=== PATIENT | male | born 1955 | race Caucasian/White ===

== ENCOUNTER 2023-01-07 09:55 | Outpatient (RCR) | payer OTHER, SELFPAY | END 2023-04-01 10:19 | disposition home or self-care (01) | LOC: PT 09:55 | PROVIDERS: PCP Family Medicine; Visit Provider Family Medicine | DX: Z98.890 Other specified postprocedural states (principal) | CPT/HCPCS: 97010; 97014; 97110; 97124; 97140; 97162; 97530; G0283 ==

== ENCOUNTER 2023-07-05 12:56 | Outpatient (OUT) | payer OTHER, SELFPAY ==
--- NOTE | 2023-07-05 13:16 | CT_ITS ---
[address] [address] Patient Name: JACKELYN BUSTILLO MRN: [id number] date: 1955 Sex: M Assigned Patient Location: CT Current Patient Location: CT Accession/Order Number: [id number] Exam Date: 07/05/2023 13:08 Report Date: 07/05/2023 15:21 At the request of: NICKO ORTEGA Procedure: CT chest wo con EXAM TYPE: CT chest wo con INDICATION: Pulmonary nodules. COMPARISON: Noncontrast CT of the chest 06/16/2022, 12/14/2021 TECHNIQUE: Noncontrast, Low dose, helical axial images of the chest were obtained, and thin section, axial MIP, and coronal and sagittal reformats were also submitted from the acquisition scanner under radiologist supervision. Each series was submitted in a lung algorithm. Dose reduction techniques were achieved by using automated exposure control and/or adjustment of mA and/or kV according to patient size and/or use of iterative reconstruction technique. FINDINGS: Please note that this examination was tailored for evaluation of pulmonary nodules, and therefore soft tissue detail is suboptimal. Heart size within normal limits. No pericardial effusion. Coronary artery calcification and calcified atherosclerotic change within the aorta. No aortic aneurysm. No mediastinal, hilar or axillary lymphadenopathy. No central endobronchial nodule. Extensive emphysematous change throughout the lung parenchyma. Subsegmental atelectasis within the right middle lobe lingula and lower lobes bilaterally. No lobar consolidation or pleural effusion. No pneumothorax. New 1.1 x 0.9 cm slightly spiculated nodule left upper lobe (3, 31) Stable 7 mm left lower lobe nodule (3, 40) New 4 mm right middle lobe nodule (3, 74) Nonobstructing right renal calculus. Small sliding hiatal hernia. Calcified hepatic granuloma. No acute fracture or dislocation. Stable mild compression deformity T7 vertebral body. IMPRESSION : 1. New pulmonary nodules within the left upper lobe and right middle lobe. Left lower lobe nodule is stable. Lung RADS category 4A suspicious: LD CT scan of the chest in 3 months recommended. 2. Nonobstructing right nephrolithiasis. Electronically authenticated by: RANDALL WATSON Date: 07/05/2023 15:21
== END 2023-07-05 12:57 | disposition home or self-care (01) ==
LOC: CT 12:56
PROVIDERS: PCP Family Medicine; Visit Provider Internal Medicine
DX: R91.8 Other nonspecific abnormal finding of lung field (principal)
CPT/HCPCS: 71250

== ENCOUNTER 2023-07-19 13:00 | Outpatient (OUT) | payer OTHER, SELFPAY ==
--- NOTE | 2023-07-20 07:59 | W.PM.PROCNOT ---
Date of procedure: 07/19/23 Procedure: 6-Minute Walk Test Indication: Centrilobular emphysema, dyspnea Baseline data: Initial blood pressure: 150/84 Initial heart rate: 78 Initial oxygenation: SpO2 96% on room air. Initial Андрей score: 0 MMRC: 1 Procedure: A 6-Minute Walk Test was initiated according to standard protocol. The patient ambulated for a total of 6 minutes with the lowest documented SpO2 measured at 89% on room air with a maximum heart rate of 111. The maximum Андрей score was 4. Symptoms reported: None. During recovery, blood pressure was 150/84 with a heart rate of 78. SpO2 was 96% on room air, with Андрей score 0. Total number of stops: 0. Total distance walked was 370m, which was 85% of predicted walk distance. Impressions: Borderline desaturations with ambulation on room air, but did not reach the 88% threshold required to qualify for supplemental O2. Minimally decreased walk distance. Recommendations: No supplemental O2 required based on the test results. Clinical correlation required. Surgeon: Fareed Cruz
== END 2023-07-19 13:01 | disposition home or self-care (01) ==
LOC: CARD 07-26 10:42
PROVIDERS: PCP Family Medicine; Visit Provider Internal Medicine
DX: R06.02 Shortness of breath (principal); J43.2 Centrilobular emphysema
CPT/HCPCS: 94618; 99406

== ENCOUNTER 2023-07-19 13:22 | Outpatient (OUT) | payer OTHER, SELFPAY ==
[2023-07-19 14:43] LABS: Chol HDL Ratio 2.4; Cholesterol 103 mg/dL (<=200); HDL Cholesterol 43 mg/dL (40-60); Triglycerides 50 mg/dL (<=150)
== END 2023-07-19 13:23 | disposition home or self-care (01) ==
LOC: LAB 13:24
PROVIDERS: PCP Family Medicine; Visit Provider Nurse Practitioner Acute Care
DX: E78.2 Mixed hyperlipidemia (principal); I25.10 Atherosclerotic heart disease of native coronary artery without angina pectoris; R06.02 Shortness of breath; J43.2 Centrilobular emphysema
CPT/HCPCS: 36415; 80061; 83880; 94618; 99406

== ENCOUNTER 2024-05-09 11:41 | Outpatient (OUT) | payer OTHER, SELFPAY ==
--- OUTSIDE RECORDS SUMMARY | 2024-05-09 11:50 | XMS_ITS | CCD ---
Author Organization [facility] Care Team Providers Care Library Associate Name Role Phone ELTAHAWY, EHAB A Admitting Unavailable ELTAHAWY, EHAB A Attending Unavailable KEATON RICO Referring Unavailable KEATON RICO Primary Care Unavailable KEATON RICO Primary Care Physician Tom Schroeder Unavailable Maritza SCOTT Attending Unavailable Maritza SCOTT Attending Unavailable Maritza SCOTT Admitting Unavailable Maritza SCOTT Referring Unavailable Maritza SCOTT Attending Unavailable Maritza SCOTT Attending Unavailable Keaton Rico Unavailable DR KEATON RICO Primary Care Unavailable SAMSA ., NICKO Attending Unavailable JOSE, DR MUNIR Balderas Consulting Unavailable SAMSA ., NICKO Admitting Unavailable SAMSA ., NICKO Consulting Unavailable JACKY, DR KEATON Hernandes Primary Care Unavailable ALGHOTHANI, MOHAMAD Admitting Unavailable ALGHOTHANI, MOHAMAD Attending Unavailable ALGHOTHANI, MOHAMAD Consulting Unavailable MISC, DR BRICEÑO Consulting Unavailable DR KEATON RICO Primary Care Unavailable MISC, DR BRICEÑO Admitting Unavailable MISC, DR BRICEÑO Attending Unavailable JACKY, DR KEATON Hernandes Primary Care Unavailable MARITZA SCOTT Admitting Unavailable MARITZA SCOTT Attending Unavailable MARITZA SCOTT Consulting Unavailable JOSE, DR MUNIR Balderas Consulting Unavailable DR KEATON RICO Primary Care Unavailable SAMSA ., NICKO Admitting Unavailable SAMSA ., NICKO Attending Unavailable SAMSA ., NICKO Consulting Unavailable Madie Honeycutt Unavailable MD Keaton Rico Primary Care Provider [phone] LANDEN Honeycutt Attending Provider MD Tom Schroeder Attending Provider MD Keaton Rico Primary Care Provider MD Tom Schroeder Attending Provider [phone] MD Tom Schroeder Admit Provider MD Juventino Kruse Other Provider MD Keaton Rico Primary Care Provider MD Tom Schroeder Attending Provider [phone] Madie Honeycutt Admitting Unavailable Madie Honeycutt Attending Unavailable Keaton Rico Primary Care Unavailable Tom Schroeder Admitting Unavailable Tom Schroeder Attending Unavailable Keaton Rico Primary Care Unavailable Elda, Tom Admitting Unavailable Tom Schroeder Attending Unavailable Keaton Rico Primary Care Unavailable Juventino Kruse Consulting Unavailable Tom Schroeder Admitting Unavailable Tom Schroeder Attending Unavailable Keaton Rico Primary Care Unavailable Tom Schroeder Attending Unavailable Tom Schroeder Admitting Unavailable Keaton Rico Primary Care Unavailable ARAVIND JOSÉ Attending Unavailable ARAVIND JOSÉ Attending Unavailable Allergies Allergy Classification Reported Allergen(s) Allergy Type Date of Onset Reaction(s) Facility (1 source) No Known Medication Allergies; Translations: [No Known Medication Allergies] Propensity to adverse reactions (disorder) [facility] Repository Medications Current Medications Medication Drug Class(es) Dates Sig (Normalized) Sig (Original) acyclovir 400 mg oral tablet (3 sources) Herpesvirus Nucleoside Analog DNA Polymerase Inhibitor, Herpes Simplex Virus Nucleoside Analog DNA Polymerase Inhibitor, Herpes Zoster Virus Nucleoside Analog DNA Polymerase Inhibitor Start: 06-22-2021 take 1 mg by mouth twice daily acyclovir 400 mg Tab mg tab(s), Oral, BID, Refills(s) 0 Start Date: 06/22/21 Status: Ordered [id number] 200 actuat albuterol 0.09 mg/actuat metered dose inhaler (15 sources) beta2-Adrenergic Agonist Start: 05-13-2021 take 1 puff(s) by inhalation four times daily Albuterol Sulfate (Ventolin Hfa) 90 mcg/actuation Hfa Aerosol Inhaler Active 2 PUFF INHALATION Four times daily May 13, 2021 12:00am take 1 puff(s) by in halation every four hours as needed Ventolin HFA 108 (90 Base) MCG/ACT 1 puf f as needed Inhalation every 4 hrs Active azithromycin 250 mg oral tablet (8 sources) Macrolide Antimicrobial Start: 10-20-2023 Azithromycin Active 250 MG PO daily 6 October 20, 2023 12:00am Take 2 today and then 1 for the next four days Start: 11-09-2022 Azithromycin 2 50 MG as directed Orally 2 tabs po today, then 1 tab daily x 4 more days for 5 Oct, Not-Taking clopidogrel 75 mg oral tablet (2 sources) P2Y12 Platelet Inhibitor Start: 09-16-2023 take 1 tablet by mouth once daily Clopidogrel (Plavix) 75 mg tablet Active 75 MG PO Daily September 16, 2023 1:00am doxycycline hyclate 100 mg oral capsule (1 source) Tetracycline-class Drug Start: 01-19-2022 End: 02-09-2022 take 1 capsule by mouth every twelve hours doxycycline hyclate 100 mg Cap 100 mg = 1 cap(s), Oral, q12hr, X 21 day(s), # 42 cap(s), Refills(s) 0, Pharmacy: [facility]/pharmacy #[id number], 180, cm, 01/15/22 10:43:00 EDT, Height/Length Dosing, 85, kg, 12/21/21 11:01:00 EDT, Weight Dosing Start Date: 01/19/22 Stop Date: 02/09/22 Status: Ordered Erythromycin (7 sources) Macrolide, Macrolide Antimicrobial Start: 06-22-2021 erythromycin ophthalmic 0.5% ointment 0.5 in, Eye-Both, QID, 3.5 gram, Refill(s) 0 Start Date: 06/22/21 Status: Ordered Start: 06-22-2021 erythromycin o phthalmic 0.5% ointment 0.5 in, Eye-Both, QID, 3.5 gram, Refill(s) 0 Start Date: 06/22/21 Status: Ordered Erythromycin 5 M G/GM 1 application into the lower eyelid of affected eye Ophthalmic Four times a day Active ezetimibe 10 mg oral tablet (10 sources) Dietary Cholesterol Absorption Inhibitor Start: 05-18-2023 take 10 mg by mouth once daily Ezetimibe Active 10 MG PO Daily May 18, 2023 12:00am Fluticasone-Umecl idin-Vilanter (4 sources) Anticholinergic, Corticosteroid, beta2-Adrenergic Agonist Start: 05-13-2021 Fluticasone-Umecli din-Vilanter (Trelegy Ellipta) 100-62.5-25 mcg blister with device Active 1 INH INHALATION Daily May 12, 2021 11:00pm Start: 05-13-2021 Fluticasone-Um eclidin-Vilanter (Trelegy Ellipta) 100-62.5-25 mcg blister with device Active 1 INH INHALATION Daily May 13, 2021 12:00am gatifloxacin 5 mg/ml ophthalmic solution (3 sources) Quinolone Antimicrobial Start: 06-22-2021 take 1 drop(s) into the eye(s) twice daily gatifloxacin 0.5% ophthalmic solution drop(s), BID, Refill(s) 0 Start Date: 06/22/21 Status: Ordered lisinopril 10 mg oral tablet (20 sources) Angiotensin Converting Enzyme Inhibitor Start: 01-11-2024 Lisinopril Active 0 .ROUTE .COMPLEX 90 January 11, 2024 1:03pm TAKE 1 TABLET DAILY Start: 11-04-2023 End: 01-11-2024 Lisinopril Discontinued 0 .R OUTE .COMPLEX 90 November 04, 2023 11:00am January 11, 2024 1:03pm TAKE 1 TABLET DAILY Start: 04-20-2021 End: 11-04-2023 take 10 mg by mouth once daily Lisinopril Discontinued 10 MG PO Daily May 13, 2021 12:00am November 04, 2023 11:00am methylPREDNISolone 4 mg oral tablet (1 source) Corticosteroid Start: 10-20-2023 take 1 tablet by mouth once Methylprednisolone (Medrol (Jhonatan)) 4 mg tablets,dose pack Active 0 PO per package directions 19 01October 20, 2023 12:00am PO PER PKG DIR 24 hr metoprolol succinate 25 mg extended release oral tablet (5 sources) beta-Adrenergic Angelica Start: 05-18-2023 take 25 mg by mouth once daily Metoprolol Succinate Active 25 MG PO Daily May 18, 2023 12:00am Start: 05-18-2023 take 10 mg by mouth once daily Metoprolol Succinate Active 10 MG PO Daily May 17, 2023 11:00pm Metoprolol Succi sudhir Active nitroglycerin 0.4 mg sublingual tablet (5 sources) Nitrate Vasodilator Start: 05-18-2023 Nitroglyce rin Active 0.4 MG SUBLINGUAL EVERY 5 MINUTES May 18, 2023 12:00am Start: 02-14-2023 Nitroglycerin 0.4 MG 1 tablet Sublingual as needed Jan, Active Oxycodone-Ibuprofen (6 sources) Oxycodone-Ibupro fen Active predniSONE 20 mg oral tablet (2 sources) Start: 2022 take 2 tablets by mouth every twenty-four hours predniSONE 20 MG 2 tablets Orally Once a day for 5 days November, Active rivaroxaban 2.5 mg oral tablet (2 sources) Factor Xa Inhibitor Start: 2023 take 1 tablet by mouth twice daily Rivaroxaban (Xarelto) 2.5 mg Tablet Active 2.5 MG PO Twice daily 90 90 September 16, 2023 1:00am simvastatin 40 mg oral tablet (18 sources) HMG-CoA Reductase Inhibitor Start: 2020 take 40 mg by mouth at bedtime Simvastatin Active 40 MG PO Bedtime May 13, 2021 12:00am tamsulosin hydrochloride 0.4 mg oral capsule (19 sources) alpha-Adrenergi c Angelica Start: 2020 take 1 capsule by mouth twice daily Tamsulosin (Flomax) 0.4 mg Capsule Active 0.4 MG PO Twice daily May 13, 2021 12:00am Start: 05-13-2021 take 1 capsule by mo [facility] once daily Tamsulosin (Flomax) 0.4 mg Capsule Active 0.4 MG PO Daily May 12, 2021 11:00pm Tamsulosin HCl A ctive Trelegy Ellipta 100 mcg (11 sources) take 1 puff(s) by inhalation once daily Trelegy Ellipta 100 mcg 1 puff Inhalation Once a day Active Trelegy Ellipta 100 mcg-62.5 mcg-25 mcg inhalation powder (3 sources) Start: 04-20-2021 take 1 puff(s) by inhalation once daily Trelegy Ellipta 100 mcg-62.5 mcg-25 mcg inhalation powder puff(s), Inhalation, Daily, Refills(s) 0 Start Date: 04/20/21 Status: Ordered Valcyclovir-500 mg 500 mg (4 sources) take 1 tablet by escobar th twice daily Valcyclovir-500 mg 500 mg one tab orally twice a day Active Ventolin HFA 90 mcg/inh Aerosol (3 sources) Start: 04-20-2021 take 1 puff(s) by inhalation every six hours Ventolin HFA 90 mcg/inh Aerosol puff(s), Inhalation, q6hr, Refill(s) 0 Start Date: 04/20/21 Status: Ordered Completed/Discontinued Medications Medication Drug Class(es) Dates Sig (Normalized) Sig (Original) aspirin 81 mg delayed release oral tablet (18 sources) Platelet Aggregation Inhibitor, Nonsteroidal Anti-inflammatory Drug Start: 05-13-2021 End: 09-17-2023 take 1 tablet by mouth once daily Aspirin (Aspir-81) 81 mg Tablet,Delayed Release (Dr/Ec) Discontinued 81 MG PO Daily May 13, 2021 12:00am September 17, 2023 5:28pm Start: 04-20-2021 take 1 mg by mouth e very four hours aspirin 81 mg oral capsule mg cap(s), Oral, q4hr, Refills(s) 0 Start Date: 04/20/21 Status: Ordered take 1 tablet by escobar th every twenty-four hours Aspirin 81 81 MG 1 tablet Orally Once a day Active take 1 tablet by escobar th once daily Aspirin 81 81 MG 1 tablet Orally Once a day Active ofloxacin 3 mg/ml otic solution (6 sources) Quinolone Antimicrobial Start: 10-29-2022 Ofloxa leigh 0.3 % as directed Ophthalmic every 12 hrs for 5 days Sep, Not-Taking Start: 10-29-2022 Ofloxacin 0.3 % as directed Ophthalmic every 12 hrs for 5 days Sep, Not-Taking prasugrel 10 mg oral tablet (15 sources) P2Y12 Platelet Inhibitor Start: 04-20-2021 End: 05-18-2023 take 10 mg by mouth once daily Prasugrel Discontinued 10 MG PO Daily May 13, 2021 12:00am May 18, 2023 8:09am trifluridine 10 mg/ml ophthalmic solution (5 sources) Nucleoside Analog Antiviral, Nucleoside Metabolic Inhibitor take 1 drop(s) into the eye(s) every four hours Trifluridine 1 % 1 drop into affected eye while awake Ophthalmic every 4 hrs Not-Taking Problems Active Problems Problem Classification Problem Date Documented Date Episodic/Chronic Acute myocardial infarction (3 sources) Myocardial infarction 04-20-2021 Chronic Aortic and peripheral arterial embolism or thrombosis (1 source) 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 Chronic obstructive pulmonary disease and bronchiectasis (17 sources) Chronic obstructive lung disease; Translations: [Pulmonary emphysema] 04-20-2021 Chronic Chronic obstructive pulmonary disease and bronchiectasis (3 sources) Bronchitis, not specified as acute or chronic; Translations: [Bronchitis] Episodic Coronary atherosclerosis and other heart disease (4 sources) Atherosclerotic heart disease of [place] coronary artery without angina pectoris; Translations: [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] Onset: 3 Chronic Coronary atherosclerosis and other heart disease (1 source) Coronary atherosclerosis and other heart disease; Translations: [Atherosclerosis of [place] arteries of extremities with intermittent claudication, bilateral legs] Onset: 3 Disorders of lipid metabolism (3 sources) Hypercholesterolemia 04-20-2021 Chronic Genitourinary symptoms and ill-defined conditions (12 sources) Incomplete emptying of bladder; Translations: [Increased frequency of urination] 04-20-2021 Episodic Glaucoma (3 sources) Glaucoma 04-20-2021 Chronic Hyperplasia of prostate (9 sources) Benign prostatic hypertrophy with outflow obstruction; Translations: [Benign prostatic hyperplasia with lower urinary tract symptoms] Onset: 2 04-20-2021 Chronic Osteoarthritis (3 sources) Arthritis 04-20-2021 Chronic Other circulatory disease (2 sources) Peripheral arterial occlusive disease; Translations: [Disorder of arteries and arterioles, unspecified] 09-15-2023 Chronic Other circulatory disease (3 sources) Disorder of arteries and arterioles, unspecified; Translations: [Arterial embolism and thrombosis of lower extremity] Onset: 4 09-17-2023 Chronic Other circulatory disease (1 source) Other specified symptoms and signs involving the circulatory and respiratory systems Episodic Peripheral and visceral atherosclerosis (20 sources) Peripheral vascular disease; Translations: [Peripheral vascular disease, unspecified] Onset: 1 Resolved: 1 Chronic Residual codes; unclassified (1 source) Other specified postprocedural states Episodic Screening and history of mental health and substance abuse codes (1 source) Ex-smoker; Translations: [Personal history of nicotine dependence] 10-11-2023 Episodic Substance-related disorders (20 sources) Smoker; Translations: [Nicotine dependence, unspecified, uncomplicated] Onset: Resolved: 1 04-20-2021 Chronic Comment on above: Added secondary to d ocumentation in Social History. Unclassified (3 sources) Finding of sensation of bladder 04-20-2021 Past or Other Problems Problem Classification Problem Date Documented Date Episodic/Chronic Complications of surgical procedures or medical care (4 sources) Respiratory failure; Translations: [Acute postprocedural respiratory failure] Onset: 09-14-2023 09-17-2023 Episodic Inflammatory conditions of male genital organs (5 sources) Prostatitis; Translations: [Inflammatory disease of prostate, unspecified] Onset: 04-19-2022 12-21-2021 Episodic Other lower respiratory disease (4 sources) Other nonspecific abnormal finding of lung field; Translations: [OTH NONSPECIFIC ABN FIND LNG FIELD] Onset: 06-16-2022 Episodic Other lower respiratory disease (1 source) Shortness of breath; Translations: [SHORTNESS OF BREATH] Onset: 12-18-2021 Episodic Results Test Name Value Interpretation Reference Range Facility Office Visiton 03-09-2024 Follow-up visit [id number] Pawan Bustillo 1955 M Date Provider Department Center 03/09/2024 SelmaARAVIND JOSÉ [facility]OC[facility] Family History Problem Relation Age of Onset Coronary artery disease Mother Coronary artery disease Sister Coronary artery disease Brother Family Status - Relation Status Age at Mother Sister Brother Level of Service:[id number] [place] OFFICE/OUTPATIENT ESTABLISHED MOD MDM 30 MIN Normal [facility] US ankle/arm indiceson 01-16 US ankle/arm indices [facility] [address] [place] [address] Ultrasound Report Signed Patient: Pawan Bustillo MR#: [id number] 3 : 1955 Acct:[id number] Age/Sex: 68 / M ADM Date: 01/17/24 Loc: [facility] Room: Type: REG CLI Attending Dr: Tom Schroeder MD Ordering Provider: Tom Schroeder MD Date of Service: 01/17/24 US/US ankle/arm indices: I70.213 - Atherosclerosis of [place] arteries of extremiti... Copies to: Tom Schroeder MD LOWER EXTREMITY SEGMENTAL ARTERIAL DOPSCAN (PVR) INDICATION: Known peripheral vascular occlusive disease status post right lower extremity revascularization PROCEDURE: Right arm blood pressure is 119 , left is 140 . Pressures at the right ankle are 120 using the posterior tibial artery, and 121 using the dorsalis pedis artery with ankle-brachial index of 0.86 0.86 . Pressures at the left ankle are 116 using the posterior tibial artery, and 118 with ankle-brachial index of 0.83 0.84 . Wave forms by plethysmography are mildly blunted US/US ankle/arm indices IMPRESSION: Mild bilateral peripheral vascular occlusive disease at rest Impression dictated by: Tom Schroeder M.D.01/17/2024 1:08 PM Dictation Location: [place] [address] Tech: Maki Jauregui Transcribed By: NOÉ 01/17/24 1308 Dictated By: Tom Schroeder MD 01/17/24 1308 Signed By: 01/17/24 1308 Normal [facility] 36on 11-14-[address] mclain said yes Normal [facility] Refillon 11-03-2023 Refill [id number] Pawan Bustillo 1955 M Date Provider Department Center 11/03/2023 AMAN DICKSON [facility]IO [facility] Family History Problem Relation Age of Onset Coronary artery disease Mother Coronary artery disease Sister Coronary artery disease Brother Family Status - Relation Status Age at Mother Sister Brother Reason for Visit and Comments: Med Refill [[id number]] Normal [facility] XR chest 1V portableon 09-17 XR chest 1V portable [facility] Main [address] [address] XRay Report Signed Patient: Pawan Bustillo MR#: [id number] 3 : 1955 Acct:[id number] Age/Sex: 67 / M ADM Date: 09/14/23 Loc: Room: [address] [place] [address] Type: ADM IN Attending Dr: Tom Schroeder MD Copies to: MD Tom Klein MD Ordering Provider: Juventino Kruse MD Date of Service: 09/17/23 XR/XR chest 1V portable: hypoxemia PORTABLE AP SEMIERECT CHEST 0958 hours CLINICAL HISTORY: Hypoxemia. Recent iliac artery stenting. COMPARISON: None There is shallow inspiration. Atelectatic and/or infiltrative change is present at the right base. There is blunting of the lateral costophrenic angle on that side and pleural effusion is not excluded. The right lung is grossly clear. No pneumothorax is seen. The heart is not significantly enlarged. The left hilum has a somewhat rounded contour. This may be vascular however mass or adenopathy is not excluded with only this single view and no priors. There is endplate spurring at the spine. XR/XR chest 1V portable IMPRESSION: SHALLOW INSPIRATION. RIGHT BASILAR PARENCHYMAL AND POSSIBLE PLEURAL CHANGE. NODULAR LEFT HILUM. Impression dictated by: Sonal Kebede M.D.09/17/2023 10:16 AM Dictation Location: [place] [address] Transcribed By: [facility] 09/17/23 1016 Dictated By: Sonal Kebede MD 09/17/23 1013 Signed By: 09/17/23 1016 Normal [facility] Activated Clotting Timeon Activated Clotting Time POC 131 s Normal 90-139 [facility] Comment on above: Result Comment: Refe rence Range: 90-139 (Non-heparinized) PERFORMED BY: [place] [address] PATHOLOGIST FLIGHT TEACHER JOLIE MASON M.D. Performed By: #### F IB-C, CBC, PP #### [address] Activated partial thrombopla stin time (aPTT) in platelet poor plasma by coagulation aOrdered By: Tom Schroeder on 09-16-2023 aPTT Coag (PPP) [Time] 32.2 s 25.1-36.5 [facility] Comment on above: A hematocrit value g reater than 55% may lead to inaccurate results in coagulation testing. Patients having hematocrit values >55% require a special collection tube for coagulation studies. Please contact the laboratory at [phone] for redraw instructions. Automated basophil %Ordered By: Tom Schroeder on 09-16-2023 Basophils/100 WBC (Bld) 0.7 % Normal . [facility] Comment on above: Order Comment: Comme nt Every 6 hours while on tPA Performed By: #### P P, CBC, FIB-C #### [address] Automated basophil countOrde red By: Tom Schroeder on 09-16-2023 Basophils (Bld) [#/Vol] 0.1 10*3/uL Normal 0.0-0.[address] [facility] Comment on above: Order Comment: Comme nt Every 6 hours while on tPA Result Comment: PERF ORMED BY: [place] [address] PATHOLOGIST FLIGHT TEACHER JOLIE MASON M.D. Performed By: #### P P, CBC, FIB-C #### [address] Automated blood monocyte cou ntOrdered By: Tom Schroeder on 09-16-2023 Monocytes (Bld) [#/Vol] 0.5 10*3/uL Normal 0.0-0.[address] [facility] Comment on above: Order Comment: Comme nt Every 6 hours while on tPA Performed By: #### P P, CBC, FIB-C #### [address] Automated eosinophil %Ordere d By: Tom Schroeder on 09-16-2023 Eosinophils/100 WBC (Bld) 0.8 % Normal . [facility] Comment on above: Order Comment: Comme nt Every 6 hours while on tPA Performed By: #### P P, CBC, FIB-C #### [address] Automated eosinophil countOr dered By: Tom Schroeder on 09-16-2023 Eosinophils (Bld) [#/Vol] 0.1 10*3/uL Normal 0.0-0.[address] [facility] Comment on above: Order Comment: Comme nt Every 6 hours while on tPA Performed By: #### P P, CBC, FIB-C #### [facility] [address] Automated monocyte %Ordered By: Tom Schroeder on 09-16-2023 Monocytes/100 WBC (Bld) 6.6 % Normal . [facility] Comment on above: Order Comment: Comme nt Every 6 hours while on tPA Performed By: #### P P, CBC, FIB-C #### [facility] [address] Automated neutrophil %Ordere d By: Tom Schroeder on 09-16-2023 Neutrophils/100 WBC (Bld) 82.4 % Normal . [facility] Comment on above: Order Comment: Comme nt Every 6 hours while on tPA Performed By: #### P P, CBC, FIB-C #### [facility] [address] [place] [address] Blood activated clotting francois e by coagulation assayOrdered By: Tom Schroeder on 09-16-2023 ACT Coag (Bld) 131 s 90-[address] [facility] Comment on above: Reference Range: 90- 139 (Non-heparinized) Coagulation Profileon 2023 aPTT Coag (Bld) [Time] 32.2 s Normal 25.1-36.5 [facility] Comment on above: Order Comment: Comme nt Every 6 hours while on tPA Result Comment: A he matocrit value greater than 55% may lead to inaccurate results in coagulation testing. Patients having hematocrit values >55% require a special collection tube for coagulation studies. Please contact the laboratory at [phone] for redraw instructions. Performed By: #### P P, CBC, FIB-C #### [facility] [address] [place] [address] Complete Blood Count Auto Di ffon 09-16-2023 Mean Corpuscular HGB Conc 34.2 g/dL Normal 32.5-35.6 [facility] Comment on above: Order Comment: Comme nt Every 6 hours while on tPA Performed By: #### P P, CBC, FIB-C #### [address] NRBC% 0.1 /100{WBC} Normal 0-0.5 [facility] Comment on above: Order Comment: Comme nt Every 6 hours while on tPA Performed By: #### P P, CBC, FIB-C #### [address] Erythrocyte distribution wid th [Ratio] by Automated countOrdered By: Tom Schroeder on 09-16-2023 Erythrocyte distribution width (RBC) [Ratio] 14.2 % Normal 12.0-14.[address] [facility] Comment on above: Order Comment: Comme nt Every 6 hours while on tPA Performed By: #### P P, CBC, FIB-C #### [address] Erythrocytes [#/volume] in B lood by Automated countOrdered By: Tom Schroeder on 09-16-2023 RBC (Bld) [#/Vol] 4.20 10*6/uL Normal 3.90-5.60 [facility] Comment on above: Order Comment: Comme nt Every 6 hours while on tPA Performed By: #### P P, CBC, FIB-C #### [address] Fibrinogenon 09-16-2023 Fibrinogen 191 mg/dL Low 200-393 [facility] Comment on above: Order Comment: Comme nt Every 6 hours while on tPA Result Comment: A he matocrit value greater than 55% may lead to inaccurate results in coagulation testing. Patients having hematocrit values >55% require a special collection tube for coagulation studies. Please contact the laboratory at [phone] for redraw instructions. PERFORMED BY: [place] [address] PATHOLOGIST FLIGHT TEACHER JOLIE MASON M.D. Performed By: #### P P, CBC, FIB-C #### [facility] [address] [place], [place] [id number] [place] Fibrinogen [Mass/volume] in Platelet poor plasma by Coagulation assayOrdered By: Tom Schroeder on 09-16-2023 Fibrinogen Coag (PPP) [Mass/Vol] 191 mg/dL 200-[address] [facility] Comment on above: A hematocrit value g reater than 55% may lead to inaccurate results in coagulation testing. Patients having hematocrit values >55% require a special collection tube for coagulation studies. Please contact the laboratory at [phone] for redraw instructions. Hematocrit [Volume Fraction] of Blood by Automated countOrdered By: Tom Schroeder on 09-16-2023 Hematocrit (Bld) [Volume fraction] 41.9 % Normal 38.8-50.[address] [facility] Comment on above: Order Comment: Comme nt Every 6 hours while on tPA Performed By: #### P P, CBC, FIB-C #### [place] [id number] [facility] Hemoglobin [Mass/volume] in BloodOrdered By: Tom Schroeder on 09-16-2023 Hemoglobin (Bld) [Mass/Vol] 14.3 g/dL Normal 13.0-17.[address] [facility] Comment on above: Order Comment: Comme nt Every 6 hours while on tPA Performed By: #### P P, CBC, FIB-C #### [facility] [address] [place], [place] [id number] [place] INR in Platelet poor plasma by Coagulation assayOrdered By: Tom Schroeder on 09-16-2023 INR Coag (PPP) [Relative time] 1.2 {INR} Normal [facility] Comment on above: INR Therapeutic Rang e A) Pre- and Peroperative OAT started two weeks before surgery. NOT HIP SURGERY: 1.5 - 2.5 HIP SURGERY: 2 - 3B) Primary and secondary prevention of venous THROMBOSIS: 2 - 3C) Active venous thrombosis, pulmonary embolismand prevention of recurrent venous thrombosis: 2 - 3D) Prevention of arterial thromboembolismincluding patients with mechanical heart valves: 3 - 4.5 Order Comment: Comme nt Every 6 hours while on tPA Result Comment: INR Therapeutic Range A) Pre- and Peroperative OAT started two weeks before surgery. NOT HIP SURGERY: 1.5 - 2.5 HIP SURGERY: 2 - 3 B) Primary and secondary prevention of venous THROMBOSIS: 2 - 3 C) Active venous thrombosis, pulmonary embolism and prevention of recurrent venous thrombosis: 2 - 3 D) Prevention of arterial thromboembolism including patients with mechanical heart valves: 3 - 4.5 Performed By: #### P P, CBC, FIB-C #### [facility] [address] Leukocytes [#/volume] correc sharona for nucleated erythrocytes in Blood by Automated counOrdered By: Tom Schroeder on 09-16-2023 WBC corrected for nucl RBC Auto (Bld) [#/Vol] 7.6 10*3/uL 4.1-10.[address] [facility] Leukocytes [#/volume] in Blo od by Automated countOrdered By: Tom Shcroeder on 09-16-2023 WBC (Bld) [#/Vol] 7.6 10*3/uL Normal 4.1-10.5 [facility] Comment on above: Order Comment: Comme nt Every 6 hours while on tPA Performed By: #### P P, CBC, FIB-C #### [facility] [address] [place] [address] Lymphocytes [#/volume] in Bl ood by Automated countOrdered By: Tom Schroeder on 09-16-2023 Lymphocytes (Bld) [#/Vol] 0.7 10*3/uL Low 1.00-4.[address] [facility] Comment on above: Order Comment: Comme nt Every 6 hours while on tPA Performed By: #### P P, CBC, FIB-C #### [facility] [address] [place] [address] [place] Lymphocytes/100 leukocytes i n Blood by Automated countOrdered By: Tom Schroeder on 09-16-2023 Lymphocytes/100 WBC (Bld) 9.5 % Normal . [facility] Comment on above: Order Comment: Comme nt Every 6 hours while on tPA Performed By: #### P P, CBC, FIB-C #### [facility] [address] [place] [address] MCH [Entitic mass] by Automa sharona countOrdered By: Tom Schroeder on 09-16-2023 MCH (RBC) [Entitic mass] 34.1 pg Normal 27.5-35.[address] [facility] Comment on above: Order Comment: Comme nt Every 6 hours while on tPA Performed By: #### P P, CBC, FIB-C #### [facility] [address] [place] [address] MCHC Auto (RBC) [Mass/Vol]Or dered By: Tom Schroeder on 09-16-2023 MCHC (RBC) [Mass/Vol] 34.2 g/dL 32.5-35.6 [facility] MCV [Entitic volume] by Auto mated countOrdered By: Tom Schroeder on 09-16-2023 MCV (RBC) [Entitic vol] 99.7 fL Normal 83.5-[address] [facility] Comment on above: Order Comment: Comme nt Every 6 hours while on tPA Performed By: #### P P, CBC, FIB-C #### [facility] [address] [place] [address] Neutrophils [#/volume] in Bl ood by Automated countOrdered By: Tom Schroeder on 09-16-2023 Neutrophils (Bld) [#/Vol] 6.3 10*3/uL Normal 1.8-7.[address] [facility] Comment on above: Order Comment: Comme nt Every 6 hours while on tPA Performed By: #### P P, CBC, FIB-C #### [facility] [address] [place] [address] [place] Nucleated erythrocytes [Pres ence] in Blood by Automated countOrdered By: Tom Schroeder on 09-16-2023 Nucleated RBC Auto Ql (Bld) 0.1 /100{WBC} 0-0.[address] [facility] Platelet mean volume [Entiti c volume] in Blood by Automated countOrdered By: Tom Schroeder on 09-16-2023 Platelet mean volume (Bld) [Entitic vol] 7.7 fL Normal 6.6-10.[address] [facility] Comment on above: Order Comment: Comme nt Every 6 hours while on tPA Performed By: #### P P, CBC, FIB-C #### [address] Platelets [#/volume] in Bloo d by Automated countOrdered By: Tom Schroeder on 09-16-2023 Platelets (Bld) [#/Vol] 121 10*3/uL Low 150-[address] [facility] Comment on above: Order Comment: Comme nt Every 6 hours while on tPA Performed By: #### P P, CBC, FIB-C #### [address] Prothrombin time (PT)Ordered By: Tom Schroeder on 09-16-2023 PT Coag (PPP) [Time] 13.7 s High 9.0-12.9 [facility] Comment on above: A hematocrit value g reater than 55% may lead to inaccurate results in coagulation testing. Patients having hematocrit values >55% require a special collection tube for coagulation studies. Please contact the laboratory at [phone] for redraw instructions. Order Comment: Comme nt Every 6 hours while on tPA Result Comment: A he matocrit value greater than 55% may lead to inaccurate results in coagulation testing. Patients having hematocrit values >55% require a special collection tube for coagulation studies. Please contact the laboratory at [phone] for redraw instructions. Performed By: #### P P, CBC, FIB-C #### [address] Basic Metabolic Panelon 09-01 Creatinine Clr Calc Pharmacy 95.43 Normal [facility] Comment on above: Result Comment: PERF ORMED BY: [place] [address] PATHOLOGIST FLIGHT TE[employer]ER JOLIE MASON M.D. Performed By: #### P P, CBC, FIB-C #### [address] GFR/1.73 sq M.predicted MDRD (S/P/Bld) [Vol rate/Area] mL/min/{1.73_m2} Normal [facility] Comment on above: Performed By: #### P P, CBC, FIB-C #### [address] Calcium [Mass/volume] in Ser um or PlasmaOrdered By: Niko Del Angel on 09-15-2023 Calcium [Mass/Vol] 8.3 mg/dL Low 8.6-10.3 [facility] Comment on above: Performed By: #### P P, CBC, FIB-C #### [address] Carbon dioxide, total [Moles /volume] in Serum or PlasmaOrdered By: Niko Del Angel on 09-15-2023 CO2 [Moles/Vol] 29.9 mmol/L Normal 21.0-31.0 [facility] Comment on above: Performed By: #### P P, CBC, FIB-C #### [address] Chloride [Moles/volume] in S devyn or PlasmaOrdered By: Niko Del Angel on 09-15-2023 Chloride [Moles/Vol] 106 mmol/L Normal 98-107 [facility] Comment on above: Performed By: #### P P, CBC, FIB-C #### [address] Coagulation Profileon 2023 aPTT Coag (Bld) [Time] 23.4 s Low 25.1-36.5 [facility] Comment on above: Order Comment: Comme nt Every 6 hour while on tPA Result Comment: A he matocrit value greater than 55% may lead to inaccurate results in coagulation testing. Patients having hematocrit values >55% require a special collection tube for coagulation studies. Please contact the laboratory at [phone] for redraw instructions. Performed By: #### F IB-C, CBC, PP #### [address] INR Coag (PPP) [Relative time] 1.1 {INR} Normal [facility] Comment on above: Order Comment: Comme nt Every 6 hour while on tPA Result Comment: INR Therapeutic Range A) Pre- and Peroperative OAT started two weeks before surgery. NOT HIP SURGERY: 1.5 - 2.5 HIP SURGERY: 2 - 3 B) Primary and secondary prevention of venous THROMBOSIS: 2 - 3 C) Active venous thrombosis, pulmonary embolism and prevention of recurrent venous thrombosis: 2 - 3 D) Prevention of arterial thromboembolism including patients with mechanical heart valves: 3 - 4.5 Performed By: #### F IB-C, CBC, PP #### [facility] [address] [place] [id number] [facility] PT Coag (PPP) [Time] 12.9 s Normal 9.0-12.9 [facility] Comment on above: Order Comment: Comme nt Every 6 hour while on tPA Result Comment: A he matocrit value greater than 55% may lead to inaccurate results in coagulation testing. Patients having hematocrit values >55% require a special collection tube for coagulation studies. Please contact the laboratory at [phone] for redraw instructions. Performed By: #### F IB-C, CBC, PP #### [facility] [address] [place] [id number] [facility] aPTT Coag (Bld) [Time] 126.7 s Off scale high 25.1-36.5 [facility] Comment on above: Order Comment: Comme nt Every 6 hours while on tPA Result Comment: A he matocrit value greater than 55% may lead to inaccurate results in coagulation testing. Patients having hematocrit values >55% require a special collection tube for coagulation studies. Please contact the laboratory at [phone] for redraw instructions. Performed By: #### C BC, PP, FIB-C #### [facility] [address] [place] [id number] [facility] INR Coag (PPP) [Relative time] 1.2 {INR} Normal [facility] Comment on above: Order Comment: Comme nt Every 6 hours while on tPA Result Comment: INR Therapeutic Range A) Pre- and Peroperative OAT started two weeks before surgery. NOT HIP SURGERY: 1.5 - 2.5 HIP SURGERY: 2 - 3 B) Primary and secondary prevention of venous THROMBOSIS: 2 - 3 C) Active venous thrombosis, pulmonary embolism and prevention of recurrent venous thrombosis: 2 - 3 D) Prevention of arterial thromboembolism including patients with mechanical heart valves: 3 - 4.5 Performed By: #### C BC, PP, FIB-C #### [facility] [address] PT Coag (PPP) [Time] 13.3 s High 9.0-12.9 [facility] Comment on above: Order Comment: Comme nt Every 6 hours while on tPA Result Comment: Crit ical value result called at 1601 on 09/15/23 A hematocrit value greater than 55% may lead to inaccurate results in coagulation testing. Patients having hematocrit values >55% require a special collection tube for coagulation studies. Please contact the laboratory at [phone] for redraw instructions. Performed By: #### C BC, PP, FIB-C #### [place] [id number] [facility] aPTT Coag (Bld) [Time] 32.6 s Normal 25.1-36.5 [facility] Comment on above: Order Comment: Comme nt Every 6 hour while on tPA Result Comment: A he matocrit value greater than 55% may lead to inaccurate results in coagulation testing. Patients having hematocrit values >55% require a special collection tube for coagulation studies. Please contact the laboratory at [phone] for redraw instructions. Performed By: #### F IB-C, CBC, PP #### [place] [id number] [facility] INR Coag (PPP) [Relative time] 1.1 {INR} Normal [facility] Comment on above: Order Comment: Comme nt Every 6 hour while on tPA Result Comment: INR Therapeutic Range A) Pre- and Peroperative OAT started two weeks before surgery. NOT HIP SURGERY: 1.5 - 2.5 HIP SURGERY: 2 - 3 B) Primary and secondary prevention of venous THROMBOSIS: 2 - 3 C) Active venous thrombosis, pulmonary embolism and prevention of recurrent venous thrombosis: 2 - 3 D) Prevention of arterial thromboembolism including patients with mechanical heart valves: 3 - 4.5 Performed By: #### F IB-C, CBC, PP #### [facility] [address] [place] [address] [place] PT Coag (PPP) [Time] 13.1 s High 9.0-12.9 [facility] Comment on above: Order Comment: Comme nt Every 6 hour while on tPA Result Comment: A he matocrit value greater than 55% may lead to inaccurate results in coagulation testing. Patients having hematocrit values >55% require a special collection tube for coagulation studies. Please contact the laboratory at [phone] for redraw instructions. Performed By: #### F IB-C, CBC, PP #### [facility] [address] [place] [address] [place] aPTT Coag (Bld) [Time] 35.4 s Normal 25.1-36.5 [facility] Comment on above: Order Comment: Comme nt Every 6 hours while on tPA Result Comment: A he matocrit value greater than 55% may lead to inaccurate results in coagulation testing. Patients having hematocrit values >55% require a special collection tube for coagulation studies. Please contact the laboratory at [phone] for redraw instructions. Performed By: #### P P, CBC, FIB-C #### [facility] [address] [place] [address] [place] INR Coag (PPP) [Relative time] 1.1 {INR} Normal [facility] Comment on above: Order Comment: Comme nt Every 6 hours while on tPA Result Comment: INR Therapeutic Range A) Pre- and Peroperative OAT started two weeks before surgery. NOT HIP SURGERY: 1.5 - 2.5 HIP SURGERY: 2 - 3 B) Primary and secondary prevention of venous THROMBOSIS: 2 - 3 C) Active venous thrombosis, pulmonary embolism and prevention of recurrent venous thrombosis: 2 - 3 D) Prevention of arterial thromboembolism including patients with mechanical heart valves: 3 - 4.5 Performed By: #### P P, CBC, FIB-C #### [facility] [address] [place] [address] [place] PT Coag (PPP) [Time] 12.3 s Normal 9.0-12.9 [facility] Comment on above: Order Comment: Comme nt Every 6 hours while on tPA Result Comment: A he matocrit value greater than 55% may lead to inaccurate results in coagulation testing. Patients having hematocrit values >55% require a special collection tube for coagulation studies. Please contact the laboratory at [phone] for redraw instructions. Performed By: #### P P, CBC, FIB-C #### [address] Complete Blood Count Auto Di ffon 09-15-2023 Basophils (Bld) [#/Vol] 0.0 10*3/uL Normal 0.0-0.2 [facility] Comment on above: Order Comment: Comme nt Every 6 hour while on tPA Result Comment: PERF ORMED BY: [place] [address] PATHOLOGIST FL[employer] TEACHER JOLIE MASON M.D. Performed By: #### F IB-C, CBC, PP #### [address] Basophils/100 WBC (Bld) 0.4 % Normal . [facility] Comment on above: Order Comment: Comme nt Every 6 hour while on tPA Performed By: #### F IB-C, CBC, PP #### [address] Eosinophils (Bld) [#/Vol] 0.0 10*3/uL Normal 0.0-0.45 [facility] Comment on above: Order Comment: Comme nt Every 6 hour while on tPA Performed By: #### F IB-C, CBC, PP #### [address] Eosinophils/100 WBC (Bld) 0.5 % Normal . [facility] Comment on above: Order Comment: Comme nt Every 6 hour while on tPA Performed By: #### F IB-C, CBC, PP #### [address] Erythrocyte distribution width (RBC) [Ratio] 13.8 % Normal 12.0-14.8 [facility] Comment on above: Order Comment: Comme nt Every 6 hour while on tPA Performed By: #### F IB-C, CBC, PP #### [address] Hematocrit (Bld) [Volume fraction] 43.3 % Normal 38.8-50.0 [facility] Comment on above: Order Comment: Comme nt Every 6 hour while on tPA Performed By: #### F IB-C, CBC, PP #### [address] Hemoglobin (Bld) [Mass/Vol] 14.7 g/dL Normal 13.0-17.0 [facility] Comment on above: Order Comment: Comme nt Every 6 hour while on tPA Performed By: #### F IB-C, CBC, PP #### [address] Lymphocytes (Bld) [#/Vol] 0.7 10*3/uL Low 1.00-4.8 [facility] Comment on above: Order Comment: Comme nt Every 6 hour while on tPA Performed By: #### F IB-C, CBC, PP #### [address] Lymphocytes/100 WBC (Bld) 9.1 % Normal . [facility] Comment on above: Order Comment: Comme nt Every 6 hour while on tPA Performed By: #### F IB-C, CBC, PP #### [address] MCH (RBC) [Entitic mass] 34.1 pg Normal 27.5-35.2 [facility] Comment on above: Order Comment: Comme nt Every 6 hour while on tPA Performed By: #### F IB-C, CBC, PP #### [address] MCV (RBC) [Entitic vol] 100.2 fL Normal 83.5-101 [facility] Comment on above: Order Comment: Comme nt Every 6 hour while on tPA Performed By: #### F IB-C, CBC, PP #### [facility] [address] Mean Corpuscular HGB Conc 34.1 g/dL Normal 32.5-35.6 [facility] Comment on above: Order Comment: Comme nt Every 6 hour while on tPA Performed By: #### F IB-C, CBC, PP #### [address] Monocytes (Bld) [#/Vol] 0.5 10*3/uL Normal 0.0-0.8 [facility] Comment on above: Order Comment: Comme nt Every 6 hour while on tPA Performed By: #### F IB-C, CBC, PP #### [address] Monocytes/100 WBC (Bld) 6.0 % Normal . [facility] Comment on above: Order Comment: Comme nt Every 6 hour while on tPA Performed By: #### F IB-C, CBC, PP #### [address] Neutrophils (Bld) [#/Vol] 6.5 10*3/uL Normal 1.8-7.7 [facility] Comment on above: Order Comment: Comme nt Every 6 hour while on tPA Performed By: #### F IB-C, CBC, PP #### [address] Neutrophils/100 WBC (Bld) 84.0 % Normal . [facility] Comment on above: Order Comment: Comme nt Every 6 hour while on tPA Performed By: #### F IB-C, CBC, PP #### [address] NRBC% 0.0 /100{WBC} Normal 0-0.5 [facility] Comment on above: Order Comment: Comme nt Every 6 hour while on tPA Performed By: #### F IB-C, CBC, PP #### [address] Platelet mean volume (Bld) [Entitic vol] 8.0 fL Normal 6.6-10.1 [facility] Comment on above: Order Comment: Comme nt Every 6 hour while on tPA Performed By: #### F IB-C, CBC, PP #### [address] Platelets (Bld) [#/Vol] 123 10*3/uL Low 150-450 [facility] Comment on above: Order Comment: Comme nt Every 6 hour while on tPA Performed By: #### F IB-C, CBC, PP #### [address] RBC (Bld) [#/Vol] 4.32 10*6/uL Normal 3.90-5.60 [facility] Comment on above: Order Comment: Comme nt Every 6 hour while on tPA Performed By: #### F IB-C, CBC, PP #### [address] WBC (Bld) [#/Vol] 7.8 10*3/uL Normal 4.1-10.5 [facility] Comment on above: Order Comment: Comme nt Every 6 hour while on tPA Performed By: #### F IB-C, CBC, PP #### [address] Basophils (Bld) [#/Vol] 0.0 10*3/uL Normal 0.0-0.2 [facility] Comment on above: Order Comment: Comme nt Every 6 hour while on tPA Result Comment: PERF ORMED BY: [place] [address] PATHOLOGIST FL[employer] TEACHER JOLIE MASON M.D. Performed By: #### C BC, PP, FIB-C #### [address] Basophils/100 WBC (Bld) 0.4 % Normal . [facility] Comment on above: Order Comment: Comme nt Every 6 hour while on tPA Performed By: #### C BC, PP, FIB-C #### [place] [address] [place] Eosinophils (Bld) [#/Vol] 0.0 10*3/uL Normal 0.0-0.45 [facility] Comment on above: Order Comment: Comme nt Every 6 hour while on tPA Performed By: #### C BC, PP, FIB-C #### [address] Eosinophils/100 WBC (Bld) 0.4 % Normal . [facility] Comment on above: Order Comment: Comme nt Every 6 hour while on tPA Performed By: #### C BC, PP, FIB-C #### [address] Erythrocyte distribution width (RBC) [Ratio] 14.1 % Normal 12.0-14.8 [facility] Comment on above: Order Comment: Comme nt Every 6 hour while on tPA Performed By: #### C BC, PP, FIB-C #### [address] Hematocrit (Bld) [Volume fraction] 43.4 % Normal 38.8-50.0 [facility] Comment on above: Order Comment: Comme nt Every 6 hour while on tPA Performed By: #### C BC, PP, FIB-C #### [address] Hemoglobin (Bld) [Mass/Vol] 14.8 g/dL Normal 13.0-17.0 [facility] Comment on above: Order Comment: Comme nt Every 6 hour while on tPA Performed By: #### C BC, PP, FIB-C #### [address] Lymphocytes (Bld) [#/Vol] 0.7 10*3/uL Low 1.00-4.8 [facility] Comment on above: Order Comment: Comme nt Every 6 hour while on tPA Performed By: #### C BC, PP, FIB-C #### [address] Lymphocytes/100 WBC (Bld) 7.7 % Normal . [facility] Comment on above: Order Comment: Comme nt Every 6 hour while on tPA Performed By: #### C BC, PP, FIB-C #### [address] MCH (RBC) [Entitic mass] 33.9 pg Normal 27.5-35.2 [facility] Comment on above: Order Comment: Comme nt Every 6 hour while on tPA Performed By: #### C BC, PP, FIB-C #### [address] MCV (RBC) [Entitic vol] 99.7 fL Normal 83.5-101 [facility] Comment on above: Order Comment: Comme nt Every 6 hour while on tPA Performed By: #### C BC, PP, FIB-C #### [address] Mean Corpuscular HGB Conc 34.0 g/dL Normal 32.5-35.6 [facility] Comment on above: Order Comment: Comme nt Every 6 hour while on tPA Performed By: #### C BC, PP, FIB-C #### [address] Monocytes (Bld) [#/Vol] 0.5 10*3/uL Normal 0.0-0.8 [facility] Comment on above: Order Comment: Comme nt Every 6 hour while on tPA Performed By: #### C BC, PP, FIB-C #### [address] Monocytes/100 WBC (Bld) 5.8 % Normal . [facility] Comment on above: Order Comment: Comme nt Every 6 hour while on tPA Performed By: #### C BC, PP, FIB-C #### [address] Neutrophils (Bld) [#/Vol] 7.3 10*3/uL Normal 1.8-7.7 [facility] Comment on above: Order Comment: Comme nt Every 6 hour while on tPA Performed By: #### C BC, PP, FIB-C #### [address] [address] [place] Neutrophils/100 WBC (Bld) 85.7 % Normal . [facility] Comment on above: Order Comment: Comme nt Every 6 hour while on tPA Performed By: #### C BC, PP, FIB-C #### [address] NRBC% 0.1 /100{WBC} Normal 0-0.5 [facility] Comment on above: Order Comment: Comme nt Every 6 hour while on tPA Performed By: #### C BC, PP, FIB-C #### [facility] [address] [place] [address] Platelet mean volume (Bld) [Entitic vol] 7.4 fL Normal 6.6-10.1 [facility] Comment on above: Order Comment: Comme nt Every 6 hour while on tPA Performed By: #### C BC, PP, FIB-C #### [place] [address] [place] Platelets (Bld) [#/Vol] 133 10*3/uL Low 150-450 [facility] Comment on above: Order Comment: Comme nt Every 6 hour while on tPA Performed By: #### C BC, PP, FIB-C #### [address] RBC (Bld) [#/Vol] 4.36 10*6/uL Normal 3.90-5.60 [facility] Comment on above: Order Comment: Comme nt Every 6 hour while on tPA Performed By: #### C BC, PP, FIB-C #### [place] [address] [place] WBC (Bld) [#/Vol] 8.5 10*3/uL Normal 4.1-10.5 [facility] Comment on above: Order Comment: Comme nt Every 6 hour while on tPA Performed By: #### C BC, PP, FIB-C #### [place] [place] [address] [place] Basophils (Bld) [#/Vol] 0.0 10*3/uL Normal 0.0-0.2 [facility] Comment on above: Order Comment: Comme nt Every 6 hour while on tPA Result Comment: PERF ORMED BY: [place] [address] PATHOLOGIST FLIGHT TEACHER JOLIE MASON M.D. Performed By: #### F IB-C, CBC, PP #### [address] Basophils/100 WBC (Bld) 0.2 % Normal . [facility] Comment on above: Order Comment: Comme nt Every 6 hour while on tPA Performed By: #### F IB-C, CBC, PP #### [address] Eosinophils (Bld) [#/Vol] 0.1 10*3/uL Normal 0.0-0.45 [facility] Comment on above: Order Comment: Comme nt Every 6 hour while on tPA Performed By: #### F IB-C, CBC, PP #### [address] Eosinophils/100 WBC (Bld) 0.9 % Normal . [facility] Comment on above: Order Comment: Comme nt Every 6 hour while on tPA Performed By: #### F IB-C, CBC, PP #### [address] Erythrocyte distribution width (RBC) [Ratio] 14.0 % Normal 12.0-14.8 [facility] Comment on above: Order Comment: Comme nt Every 6 hour while on tPA Performed By: #### F IB-C, CBC, PP #### [address] Hematocrit (Bld) [Volume fraction] 45.3 % Normal 38.8-50.0 [facility] Comment on above: Order Comment: Comme nt Every 6 hour while on tPA Performed By: #### F IB-C, CBC, PP #### [address] Hemoglobin (Bld) [Mass/Vol] 15.0 g/dL Normal 13.0-17.0 [facility] Comment on above: Order Comment: Comme nt Every 6 hour while on tPA Performed By: #### F IB-C, CBC, PP #### [address] Lymphocytes (Bld) [#/Vol] 0.9 10*3/uL Low 1.00-4.8 [facility] Comment on above: Order Comment: Comme nt Every 6 hour while on tPA Performed By: #### F IB-C, CBC, PP #### [address] Lymphocytes/100 WBC (Bld) 12.0 % Normal . [facility] Comment on above: Order Comment: Comme nt Every 6 hour while on tPA Performed By: #### F IB-C, CBC, PP #### [address] MCH (RBC) [Entitic mass] 33.1 pg Normal 27.5-35.2 [facility] Comment on above: Order Comment: Comme nt Every 6 hour while on tPA Performed By: #### F IB-C, CBC, PP #### [address] MCV (RBC) [Entitic vol] 100.2 fL Normal 83.5-101 [facility] Comment on above: Order Comment: Comme nt Every 6 hour while on tPA Performed By: #### F IB-C, CBC, PP #### [address] Mean Corpuscular HGB Conc 33.1 g/dL Normal 32.5-35.6 [facility] Comment on above: Order Comment: Comme nt Every 6 hour while on tPA Performed By: #### F IB-C, CBC, PP #### [address] Monocytes (Bld) [#/Vol] 0.5 10*3/uL Normal 0.0-0.8 [facility] Comment on above: Order Comment: Comme nt Every 6 hour while on tPA Performed By: #### F IB-C, CBC, PP #### [place] [address] [place] Monocytes/100 WBC (Bld) 7.2 % Normal . [facility] Comment on above: Order Comment: Comme nt Every 6 hour while on tPA Performed By: #### F IB-C, CBC, PP #### [facility] [address] Neutrophils (Bld) [#/Vol] 6.0 10*3/uL Normal 1.8-7.7 [facility] Comment on above: Order Comment: Comme nt Every 6 hour while on tPA Performed By: #### F IB-C, CBC, PP #### [address] Neutrophils/100 WBC (Bld) 79.7 % Normal . [facility] Comment on above: Order Comment: Comme nt Every 6 hour while on tPA Performed By: #### F IB-C, CBC, PP #### [address] NRBC% 0.1 /100{WBC} Normal 0-0.5 [facility] Comment on above: Order Comment: Comme nt Every 6 hour while on tPA Performed By: #### F IB-C, CBC, PP #### [address] Platelet mean volume (Bld) [Entitic vol] 7.9 fL Normal 6.6-10.1 [facility] Comment on above: Order Comment: Comme nt Every 6 hour while on tPA Performed By: #### F IB-C, CBC, PP #### [place] [address] [place] Platelets (Bld) [#/Vol] 138 10*3/uL Low 150-450 [facility] Comment on above: Order Comment: Comme nt Every 6 hour while on tPA Performed By: #### F IB-C, CBC, PP #### [place] [address] [place] RBC (Bld) [#/Vol] 4.52 10*6/uL Normal 3.90-5.60 [facility] Comment on above: Order Comment: Comme nt Every 6 hour while on tPA Performed By: #### F IB-C, CBC, PP #### [address] WBC (Bld) [#/Vol] 7.5 10*3/uL Normal 4.1-10.5 [facility] Comment on above: Order Comment: Comme nt Every 6 hour while on tPA Performed By: #### F IB-C, CBC, PP #### [place] [address] [place] Basophils (Bld) [#/Vol] 0.0 10*3/uL Normal 0.0-0.2 [facility] Comment on above: Order Comment: Comme nt Every 6 hours while on tPA Result Comment: PERF ORMED BY: [place] [address] PATHOLOGIST FLIGHT TEACHER JOLIE MASON M.D. Performed By: #### P P, CBC, FIB-C #### [address] Basophils/100 WBC (Bld) 0.3 % Normal . [facility] Comment on above: Order Comment: Comme nt Every 6 hours while on tPA Performed By: #### P P, CBC, FIB-C #### [place] [address] [place] Eosinophils (Bld) [#/Vol] 0.2 10*3/uL Normal 0.0-0.45 [facility] Comment on above: Order Comment: Comme nt Every 6 hours while on tPA Performed By: #### P P, CBC, FIB-C #### [place] [address] [place] Eosinophils/100 WBC (Bld) 3.7 % Normal . [facility] Comment on above: Order Comment: Comme nt Every 6 hours while on tPA Performed By: #### P P, CBC, FIB-C #### [address] Erythrocyte distribution width (RBC) [Ratio] 14.0 % Normal 12.0-14.8 [facility] Comment on above: Order Comment: Comme nt Every 6 hours while on tPA Performed By: #### P P, CBC, FIB-C #### [address] Hematocrit (Bld) [Volume fraction] 45.4 % Normal 38.8-50.0 [facility] Comment on above: Order Comment: Comme nt Every 6 hours while on tPA Performed By: #### P P, CBC, FIB-C #### [address] Hemoglobin (Bld) [Mass/Vol] 15.4 g/dL Normal 13.0-17.0 [facility] Comment on above: Order Comment: Comme nt Every 6 hours while on tPA Performed By: #### P P, CBC, FIB-C #### [address] Lymphocytes (Bld) [#/Vol] 1.4 10*3/uL Normal 1.00-4.8 [facility] Comment on above: Order Comment: Comme nt Every 6 hours while on tPA Performed By: #### P P, CBC, FIB-C #### [address] Lymphocytes/100 WBC (Bld) 22.9 % Normal . [facility] Comment on above: Order Comment: Comme nt Every 6 hours while on tPA Performed By: #### P P, CBC, FIB-C #### [address] MCH (RBC) [Entitic mass] 33.9 pg Normal 27.5-35.2 [facility] Comment on above: Order Comment: Comme nt Every 6 hours while on tPA Performed By: #### P P, CBC, FIB-C #### [address] MCV (RBC) [Entitic vol] 99.8 fL Normal 83.5-101 [facility] Comment on above: Order Comment: Comme nt Every 6 hours while on tPA Performed By: #### P P, CBC, FIB-C #### [address] Mean Corpuscular HGB Conc 34.0 g/dL Normal 32.5-35.6 [facility] Comment on above: Order Comment: Comme nt Every 6 hours while on tPA Performed By: #### P P, CBC, FIB-C #### [address] Monocytes (Bld) [#/Vol] 0.5 10*3/uL Normal 0.0-0.8 [facility] Comment on above: Order Comment: Comme nt Every 6 hours while on tPA Performed By: #### P P, CBC, FIB-C #### [address] Monocytes/100 WBC (Bld) 8.6 % Normal . [facility] Comment on above: Order Comment: Comme nt Every 6 hours while on tPA Performed By: #### P P, CBC, FIB-C #### [address] Neutrophils (Bld) [#/Vol] 3.9 10*3/uL Normal 1.8-7.7 [facility] Comment on above: Order Comment: Comme nt Every 6 hours while on tPA Performed By: #### P P, CBC, FIB-C #### [address] Neutrophils/100 WBC (Bld) 64.5 % Normal . [facility] Comment on above: Order Comment: Comme nt Every 6 hours while on tPA Performed By: #### P P, CBC, FIB-C #### [address] NRBC% 0.1 /100{WBC} Normal 0-0.5 [facility] Comment on above: Order Comment: Comme nt Every 6 hours while on tPA Performed By: #### P P, CBC, FIB-C #### [facility] [address] Platelet mean volume (Bld) [Entitic vol] 7.7 fL Normal 6.6-10.1 [facility] Comment on above: Order Comment: Comme nt Every 6 hours while on tPA Performed By: #### P P, CBC, FIB-C #### [address] Platelets (Bld) [#/Vol] 145 10*3/uL Low 150-450 [facility] Comment on above: Order Comment: Comme nt Every 6 hours while on tPA Performed By: #### P P, CBC, FIB-C #### [address] RBC (Bld) [#/Vol] 4.55 10*6/uL Normal 3.90-5.60 [facility] Comment on above: Order Comment: Comme nt Every 6 hours while on tPA Performed By: #### P P, CBC, FIB-C #### [address] WBC (Bld) [#/Vol] 6.0 10*3/uL Normal 4.1-10.5 [facility] Comment on above: Order Comment: Comme nt Every 6 hours while on tPA Performed By: #### P P, CBC, FIB-C #### [address] Creatinine [Mass/volume] in Serum or PlasmaOrdered By: Niko Del Angel on 09-15-2023 Creatinine [Mass/Vol] 0.69 mg/dL Low 0.70-1.30 [facility] Comment on above: Performed By: #### P P, CBC, FIB-C #### [address] ECG 12 lead ECGon 09-15-2023 ECG 12 lead ECG [place] [facility] [address] [place] [address] Electrocardiograph Report Signed Patient: Pawan Bustillo MR#: [id number] 3 : 1955 Acct:[id number] Age/Sex: 67 / M ADM Date: 09/14/23 Loc: Room: [address] [place] [address] Type: ADM IN Attending Dr: Tom Schroeder MD Ordering Provider: Niko Del Angel DO Date of Service: 09/15/23 ECG/ECG 12 lead ECG: preop Copies to: Test Reason : Blood Pressure : / mmHG Vent. Rate : 081 BPM Atrial Rate : 081 BPM P-R Int : 154 ms QRS Dur : 080 ms QT Int : 358 ms P-R-T Axes : 075 080 063 degrees QTc Int : 415 ms Normal sinus rhythm Normal ECG No previous ECGs available Confirmed by Juan York ([id number]) on 09/16/2023 6:19:14 PM Referred By: Electronically Signed By:Juan York Transcribed By: MUS Signed By Juan York MD 09/16/23 1819 Normal [facility] Fibrinogenon 09-15-2023 Fibrinogen 180 mg/dL Low 200-393 [facility] Comment on above: Order Comment: Comme nt Every 6 hour while on tPA Result Comment: A he matocrit value greater than 55% may lead to inaccurate results in coagulation testing. Patients having hematocrit values >55% require a special collection tube for coagulation studies. Please contact the laboratory at [phone] for redraw instructions. PERFORMED BY: [place] [address] PATHOLOGIST FLIGHT TEACHER JOLIE MASON M.D. Performed By: #### F IB-C, CBC, PP #### [facility] [address] [place] [address] Fibrinogen 170 mg/dL Low 200-393 [facility] Comment on above: Order Comment: Comme nt Every 6 hours while on tPA Result Comment: A he matocrit value greater than 55% may lead to inaccurate results in coagulation testing. Patients having hematocrit values >55% require a special collection tube for coagulation studies. Please contact the laboratory at [phone] for redraw instructions. PERFORMED BY: [place] [address] PATHOLOGIST FLIGHT TEACHER JOLIE MASON M.D. Performed By: #### P P, CBC, FIB-C #### [address] Fibrinogen 172 mg/dL Low 200-393 [facility] Comment on above: Order Comment: Comme nt Every 6 hour while on tPA Result Comment: A he matocrit value greater than 55% may lead to inaccurate results in coagulation testing. Patients having hematocrit values >55% require a special collection tube for coagulation studies. Please contact the laboratory at [phone] for redraw instructions. PERFORMED BY: [place] [address] PATHOLOGIST FLIGHT TEACHER JOLIE MASON M.D. Performed By: #### F IB-C, CBC, PP #### [address] Fibrinogen 166 mg/dL Low 200-393 [facility] Comment on above: Order Comment: Comme nt Every 6 hours while on tPA Result Comment: A he matocrit value greater than 55% may lead to inaccurate results in coagulation testing. Patients having hematocrit values >55% require a special collection tube for coagulation studies. Please contact the laboratory at [phone] for redraw instructions. PERFORMED BY: [place] [address] PATHOLOGIST FLIGHT TEACHER JOLIE MASON M.D. Performed By: #### P P, CBC, FIB-C #### [address] Glucose [Mass/volume] in Ser um or PlasmaOrdered By: Niko Del Angel on 09-15-2023 Glucose [Mass/Vol] 95 mg/dL Normal 70-100 [facility] Comment on above: ADA recommended refe rence rangeRandom Glucose Reference Range is dependent on time and content of last meal. Glucose of more than 200 mg/dL in a nonstressed, ambulatory subject supports the diagnosis of Diabetes Mellitus. Result Comment: [place] om Glucose Reference Range is dependent on time and content of last meal. Glucose of more than 200 mg/dL in a nonstressed, ambulatory subject supports the diagnosis of Diabetes Mellitus. ADA recommended reference range Performed By: #### P P, CBC, FIB-C #### [address] No Panel InformationOrdered By: Niko Del Angel on 09-15-2023 Estimated GFR (CKD-EPI) > 60.0 mL/Min [facility] Creatinine Clearance (Chem 95.[address] [facility] Potassium [Moles/volume] in Serum or PlasmaOrdered By: Niko Del Angel on 09-15-2023 Potassium [Moles/Vol] 4.7 mmol/L Normal 3.5-5.1 [facility] Comment on above: Performed By: #### P P, CBC, FIB-C #### [address] Serum or plasma anion gap de terminationOrdered By: Niko Del Angel on 09-15-2023 Anion gap [Moles/Vol] 5.8 mmol/L Low 6.0-15.0 [facility] Comment on above: Performed By: #### P P, CBC, FIB-C #### [address] Sodium [Moles/volume] in Ser um or PlasmaOrdered By: Niko Del Angel on 09-15-2023 Sodium [Moles/Vol] 137 mmol/L Normal 136-145 [facility] Comment on above: Performed By: #### P P, CBC, FIB-C #### [address] Urea nitrogen [Mass/volume] in Serum or PlasmaOrdered By: Niko Del Angel on 09-15-2023 Urea nitrogen [Mass/Vol] 11 mg/dL Normal 7-[address] [facility] Comment on above: Performed By: #### P P, CBC, FIB-C #### [place] [address] [place] ABO/Rh Retypeon 09-14-2023 ABO/RH Recheck Result Positive Normal [facility] Comment on above: Result Comment: PERF ORMED BY: [place] [address] PATHOLOGIST FLIGHT TEACHER JOLIE MASON M.D. Blood Urea Nitrogenon 2023 Urea nitrogen [Mass/Vol] 16 mg/dL Normal 7-25 [facility] Comment on above: Performed By: #### C REAT, BUN #### [address] Coagulation Profileon 2023 aPTT Coag (Bld) [Time] 32.2 s Normal 25.1-36.5 [facility] Comment on above: Order Comment: Comme nt Every 6 hours while on tPA Result Comment: A he matocrit value greater than 55% may lead to inaccurate results in coagulation testing. Patients having hematocrit values >55% require a special collection tube for coagulation studies. Please contact the laboratory at [phone] for redraw instructions. Performed By: #### P P, CBC, FIB-C #### [place] [id number] [facility] INR Coag (PPP) [Relative time] 1.0 {INR} Normal [facility] Comment on above: Order Comment: Comme nt Every 6 hours while on tPA Result Comment: INR Therapeutic Range A) Pre- and Peroperative OAT started two weeks before surgery. NOT HIP SURGERY: 1.5 - 2.5 HIP SURGERY: 2 - 3 B) Primary and secondary prevention of venous THROMBOSIS: 2 - 3 C) Active venous thrombosis, pulmonary embolism and prevention of recurrent venous thrombosis: 2 - 3 D) Prevention of arterial thromboembolism including patients with mechanical heart valves: 3 - 4.5 Performed By: #### P P, CBC, FIB-C #### [place] [id number] [facility] PT Coag (PPP) [Time] 11.5 s Normal 9.0-12.9 [facility] Comment on above: Order Comment: Comme nt Every 6 hours while on tPA Result Comment: A he matocrit value greater than 55% may lead to inaccurate results in coagulation testing. Patients having hematocrit values >55% require a special collection tube for coagulation studies. Please contact the laboratory at [phone] for redraw instructions. Performed By: #### P P, CBC, FIB-C #### [facility] [address] [place] [id number] [place] aPTT Coag (Bld) [Time] 30.0 s Normal 25.1-36.5 [facility] Comment on above: Order Comment: Comme nt Every 6 hours while on tPA Result Comment: A he matocrit value greater than 55% may lead to inaccurate results in coagulation testing. Patients having hematocrit values >55% require a special collection tube for coagulation studies. Please contact the laboratory at [phone] for redraw instructions. Performed By: #### F IB-C, CBC, PP #### [facility] [address] [place] [id number] [facility] INR Coag (PPP) [Relative time] 1.0 {INR} Normal [facility] Comment on above: Order Comment: Comme nt Every 6 hours while on tPA Result Comment: INR Therapeutic Range A) Pre- and Peroperative OAT started two weeks before surgery. NOT HIP SURGERY: 1.5 - 2.5 HIP SURGERY: 2 - 3 B) Primary and secondary prevention of venous THROMBOSIS: 2 - 3 C) Active venous thrombosis, pulmonary embolism and prevention of recurrent venous thrombosis: 2 - 3 D) Prevention of arterial thromboembolism including patients with mechanical heart valves: 3 - 4.5 Performed By: #### F IB-C, CBC, PP #### [facility] [address] [place] [address] [place] PT Coag (PPP) [Time] 12.1 s Normal 9.0-12.9 [facility] Comment on above: Order Comment: Comme nt Every 6 hours while on tPA Result Comment: A he matocrit value greater than 55% may lead to inaccurate results in coagulation testing. Patients having hematocrit values >55% require a special collection tube for coagulation studies. Please contact the laboratory at [phone] for redraw instructions. Performed By: #### F IB-C, CBC, PP #### [facility] [address] [place] [address] [place] aPTT Coag (Bld) [Time] 81.7 s High 25.1-36.5 [facility] Comment on above: Order Comment: Comme nt Every 6 hours while on tPA Result Comment: A he matocrit value greater than 55% may lead to inaccurate results in coagulation testing. Patients having hematocrit values >55% require a special collection tube for coagulation studies. Please contact the laboratory at [phone] for redraw instructions. Performed By: #### P P, CBC, FIB-C #### [address] INR Coag (PPP) [Relative time] 1.1 {INR} Normal [facility] Comment on above: Order Comment: Comme nt Every 6 hours while on tPA Result Comment: INR Therapeutic Range A) Pre- and Peroperative OAT started two weeks before surgery. NOT HIP SURGERY: 1.5 - 2.5 HIP SURGERY: 2 - 3 B) Primary and secondary prevention of venous THROMBOSIS: 2 - 3 C) Active venous thrombosis, pulmonary embolism and prevention of recurrent venous thrombosis: 2 - 3 D) Prevention of arterial thromboembolism including patients with mechanical heart valves: 3 - 4.5 Performed By: #### P P, CBC, FIB-C #### [address] [facility] PT Coag (PPP) [Time] 12.4 s Normal 9.0-12.9 [facility] Comment on above: Order Comment: Comme nt Every 6 hours while on tPA Result Comment: A he matocrit value greater than 55% may lead to inaccurate results in coagulation testing. Patients having hematocrit values >55% require a special collection tube for coagulation studies. Please contact the laboratory at [phone] for redraw instructions. Performed By: #### P P, CBC, FIB-C #### [address] [facility] Complete Blood Count Auto Di ffon 09-14-2023 Basophils (Bld) [#/Vol] 0.0 10*3/uL Normal 0.0-0.2 [facility] Comment on above: Order Comment: Comme nt Every 6 hour while on tPA Result Comment: PERF ORMED BY: [place] [address] PATHOLOGIST FLIGHT TEACHER JOLIE MASON M.D. Performed By: #### P P, CBC, FIB-C #### [address] Basophils/100 WBC (Bld) 0.8 % Normal . [facility] Comment on above: Order Comment: Comme nt Every 6 hour while on tPA Performed By: #### P P, CBC, FIB-C #### [address] Eosinophils (Bld) [#/Vol] 0.3 10*3/uL Normal 0.0-0.45 [facility] Comment on above: Order Comment: Comme nt Every 6 hour while on tPA Performed By: #### P P, CBC, FIB-C #### [address] Eosinophils/100 WBC (Bld) 4.1 % Normal . [facility] Comment on above: Order Comment: Comme nt Every 6 hour while on tPA Performed By: #### P P, CBC, FIB-C #### [address] Erythrocyte distribution width (RBC) [Ratio] 14.1 % Normal 12.0-14.8 [facility] Comment on above: Order Comment: Comme nt Every 6 hour while on tPA Performed By: #### P P, CBC, FIB-C #### [address] Hematocrit (Bld) [Volume fraction] 44.4 % Normal 38.8-50.0 [facility] Comment on above: Order Comment: Comme nt Every 6 hour while on tPA Performed By: #### P P, CBC, FIB-C #### [address] Hemoglobin (Bld) [Mass/Vol] 15.0 g/dL Normal 13.0-17.0 [facility] Comment on above: Order Comment: Comme nt Every 6 hour while on tPA Performed By: #### P P, CBC, FIB-C #### [address] Lymphocytes (Bld) [#/Vol] 1.3 10*3/uL Normal 1.00-4.8 [facility] Comment on above: Order Comment: Comme nt Every 6 hour while on tPA Performed By: #### P P, CBC, FIB-C #### [address] Lymphocytes/100 WBC (Bld) 22.1 % Normal . [facility] Comment on above: Order Comment: Comme nt Every 6 hour while on tPA Performed By: #### P P, CBC, FIB-C #### [address] MCH (RBC) [Entitic mass] 33.9 pg Normal 27.5-35.2 [facility] Comment on above: Order Comment: Comme nt Every 6 hour while on tPA Performed By: #### P P, CBC, FIB-C #### [address] MCV (RBC) [Entitic vol] 100.2 fL Normal 83.5-101 [facility] Comment on above: Order Comment: Comme nt Every 6 hour while on tPA Performed By: #### P P, CBC, FIB-C #### [address] Mean Corpuscular HGB Conc 33.8 g/dL Normal 32.5-35.6 [facility] Comment on above: Order Comment: Comme nt Every 6 hour while on tPA Performed By: #### P P, CBC, FIB-C #### [address] Monocytes (Bld) [#/Vol] 0.4 10*3/uL Normal 0.0-0.8 [facility] Comment on above: Order Comment: Comme nt Every 6 hour while on tPA Performed By: #### P P, CBC, FIB-C #### [address] Monocytes/100 WBC (Bld) 7.3 % Normal . [facility] Comment on above: Order Comment: Comme nt Every 6 hour while on tPA Performed By: #### P P, CBC, FIB-C #### [address] Neutrophils (Bld) [#/Vol] 4.0 10*3/uL Normal 1.8-7.7 [facility] Comment on above: Order Comment: Comme nt Every 6 hour while on tPA Performed By: #### P P, CBC, FIB-C #### [address] Neutrophils/100 WBC (Bld) 65.7 % Normal . [facility] Comment on above: Order Comment: Comme nt Every 6 hour while on tPA Performed By: #### P P, CBC, FIB-C #### [address] NRBC% 0.2 /100{WBC} Normal 0-0.5 [facility] Comment on above: Order Comment: Comme nt Every 6 hour while on tPA Performed By: #### P P, CBC, FIB-C #### [address] Platelet mean volume (Bld) [Entitic vol] 8.0 fL Normal 6.6-10.1 [facility] Comment on above: Order Comment: Comme nt Every 6 hour while on tPA Performed By: #### P P, CBC, FIB-C #### [place] [address] [place] Platelets (Bld) [#/Vol] 153 10*3/uL Normal 150-450 [facility] Comment on above: Order Comment: Comme nt Every 6 hour while on tPA Performed By: #### P P, CBC, FIB-C #### [place] [address] [place] RBC (Bld) [#/Vol] 4.43 10*6/uL Normal 3.90-5.60 [facility] Comment on above: Order Comment: Comme nt Every 6 hour while on tPA Performed By: #### P P, CBC, FIB-C #### [address] WBC (Bld) [#/Vol] 6.1 10*3/uL Normal 4.1-10.5 [facility] Comment on above: Order Comment: Comme nt Every 6 hour while on tPA Performed By: #### P P, CBC, FIB-C #### [address] Basophils (Bld) [#/Vol] 0.0 10*3/uL Normal 0.0-0.2 [facility] Comment on above: Order Comment: Comme nt Every 6 hour while on tPA Result Comment: PERF ORMED BY: [place] [address] PATHOLOGIST FLIGHT TEACHER JOLIE MASON M.D. Performed By: #### F IB-C, CBC, PP #### [address] Basophils/100 WBC (Bld) 0.7 % Normal . [facility] Comment on above: Order Comment: Comme nt Every 6 hour while on tPA Performed By: #### F IB-C, CBC, PP #### [address] Eosinophils (Bld) [#/Vol] 0.2 10*3/uL Normal 0.0-0.45 [facility] Comment on above: Order Comment: Comme nt Every 6 hour while on tPA Performed By: #### F IB-C, CBC, PP #### [address] Eosinophils/100 WBC (Bld) 3.9 % Normal . [facility] Comment on above: Order Comment: Comme nt Every 6 hour while on tPA Performed By: #### F IB-C, CBC, PP #### [address] Erythrocyte distribution width (RBC) [Ratio] 13.6 % Normal 12.0-14.8 [facility] Comment on above: Order Comment: Comme nt Every 6 hour while on tPA Performed By: #### F IB-C, CBC, PP #### [address] Hematocrit (Bld) [Volume fraction] 44.6 % Normal 38.8-50.0 [facility] Comment on above: Order Comment: Comme nt Every 6 hour while on tPA Performed By: #### F IB-C, CBC, PP #### [address] Hemoglobin (Bld) [Mass/Vol] 14.9 g/dL Normal 13.0-17.0 [facility] Comment on above: Order Comment: Comme nt Every 6 hour while on tPA Performed By: #### F IB-C, CBC, PP #### [address] Lymphocytes (Bld) [#/Vol] 1.4 10*3/uL Normal 1.00-4.8 [facility] Comment on above: Order Comment: Comme nt Every 6 hour while on tPA Performed By: #### F IB-C, CBC, PP #### [address] Lymphocytes/100 WBC (Bld) 22.1 % Normal . [facility] Comment on above: Order Comment: Comme nt Every 6 hour while on tPA Performed By: #### F IB-C, CBC, PP #### [address] MCH (RBC) [Entitic mass] 33.5 pg Normal 27.5-35.2 [facility] Comment on above: Order Comment: Comme nt Every 6 hour while on tPA Performed By: #### F IB-C, CBC, PP #### [address] MCV (RBC) [Entitic vol] 100.4 fL Normal 83.5-101 [facility] Comment on above: Order Comment: Comme nt Every 6 hour while on tPA Performed By: #### F IB-C, CBC, PP #### [address] Mean Corpuscular HGB Conc 33.4 g/dL Normal 32.5-35.6 [facility] Comment on above: Order Comment: Comme nt Every 6 hour while on tPA Performed By: #### F IB-C, CBC, PP #### [address] Monocytes (Bld) [#/Vol] 0.5 10*3/uL Normal 0.0-0.8 [facility] Comment on above: Order Comment: Comme nt Every 6 hour while on tPA Performed By: #### F IB-C, CBC, PP #### [address] Monocytes/100 WBC (Bld) 7.5 % Normal . [facility] Comment on above: Order Comment: Comme nt Every 6 hour while on tPA Performed By: #### F IB-C, CBC, PP #### [address] Neutrophils (Bld) [#/Vol] 4.0 10*3/uL Normal 1.8-7.7 [facility] Comment on above: Order Comment: Comme nt Every 6 hour while on tPA Performed By: #### F IB-C, CBC, PP #### [address] Neutrophils/100 WBC (Bld) 65.8 % Normal . [facility] Comment on above: Order Comment: Comme nt Every 6 hour while on tPA Performed By: #### F IB-C, CBC, PP #### [address] NRBC% 0.0 /100{WBC} Normal 0-0.5 [facility] Comment on above: Order Comment: Comme nt Every 6 hour while on tPA Performed By: #### F IB-C, CBC, PP #### [address] Platelet mean volume (Bld) [Entitic vol] 7.7 fL Normal 6.6-10.1 [facility] Comment on above: Order Comment: Comme nt Every 6 hour while on tPA Performed By: #### F IB-C, CBC, PP #### [address] Platelets (Bld) [#/Vol] 168 10*3/uL Normal 150-450 [facility] Comment on above: Order Comment: Comme nt Every 6 hour while on tPA Performed By: #### F IB-C, CBC, PP #### [address] RBC (Bld) [#/Vol] 4.45 10*6/uL Normal 3.90-5.60 [facility] Comment on above: Order Comment: Comme nt Every 6 hour while on tPA Performed By: #### F IB-C, CBC, PP #### [address] WBC (Bld) [#/Vol] 6.1 10*3/uL Normal 4.1-10.5 [facility] Comment on above: Order Comment: Comme nt Every 6 hour while on tPA Performed By: #### F IB-C, CBC, PP #### [address] Basophils (Bld) [#/Vol] 0.0 10*3/uL Normal 0.0-0.2 [facility] Comment on above: Order Comment: Comme nt Every 6 hours while on tPA Result Comment: PERF ORMED BY: [place] [address] PATHOLOGIST FLIGHT TEACHER JOLIE MASON M.D. Performed By: #### P P, CBC, FIB-C #### [place] [address] [place] Basophils/100 WBC (Bld) 0.7 % Normal . [facility] Comment on above: Order Comment: Comme nt Every 6 hours while on tPA Performed By: #### P P, CBC, FIB-C #### [place] [address] [place] Eosinophils (Bld) [#/Vol] 0.2 10*3/uL Normal 0.0-0.45 [facility] Comment on above: Order Comment: Comme nt Every 6 hours while on tPA Performed By: #### P P, CBC, FIB-C #### [address] Eosinophils/100 WBC (Bld) 3.3 % Normal . [facility] Comment on above: Order Comment: Comme nt Every 6 hours while on tPA Performed By: #### P P, CBC, FIB-C #### [address] Erythrocyte distribution width (RBC) [Ratio] 14.1 % Normal 12.0-14.8 [facility] Comment on above: Order Comment: Comme nt Every 6 hours while on tPA Performed By: #### P P, CBC, FIB-C #### [address] Hematocrit (Bld) [Volume fraction] 45.5 % Normal 38.8-50.0 [facility] Comment on above: Order Comment: Comme nt Every 6 hours while on tPA Performed By: #### P P, CBC, FIB-C #### [address] Hemoglobin (Bld) [Mass/Vol] 15.5 g/dL Normal 13.0-17.0 [facility] Comment on above: Order Comment: Comme nt Every 6 hours while on tPA Performed By: #### P P, CBC, FIB-C #### [address] Lymphocytes (Bld) [#/Vol] 1.3 10*3/uL Normal 1.00-4.8 [facility] Comment on above: Order Comment: Comme nt Every 6 hours while on tPA Performed By: #### P P, CBC, FIB-C #### [address] Lymphocytes/100 WBC (Bld) 22.0 % Normal . [facility] Comment on above: Order Comment: Comme nt Every 6 hours while on tPA Performed By: #### P P, CBC, FIB-C #### [address] MCH (RBC) [Entitic mass] 33.9 pg Normal 27.5-35.2 [facility] Comment on above: Order Comment: Comme nt Every 6 hours while on tPA Performed By: #### P P, CBC, FIB-C #### [address] MCV (RBC) [Entitic vol] 99.4 fL Normal 83.5-101 [facility] Comment on above: Order Comment: Comme nt Every 6 hours while on tPA Performed By: #### P P, CBC, FIB-C #### [address] Mean Corpuscular HGB Conc 34.1 g/dL Normal 32.5-35.6 [facility] Comment on above: Order Comment: Comme nt Every 6 hours while on tPA Performed By: #### P P, CBC, FIB-C #### [address] Monocytes (Bld) [#/Vol] 0.5 10*3/uL Normal 0.0-0.8 [facility] Comment on above: Order Comment: Comme nt Every 6 hours while on tPA Performed By: #### P P, CBC, FIB-C #### [address] Monocytes/100 WBC (Bld) 8.1 % Normal . [facility] Comment on above: Order Comment: Comme nt Every 6 hours while on tPA Performed By: #### P P, CBC, FIB-C #### [address] Neutrophils (Bld) [#/Vol] 3.9 10*3/uL Normal 1.8-7.7 [facility] Comment on above: Order Comment: Comme nt Every 6 hours while on tPA Performed By: #### P P, CBC, FIB-C #### [address] Neutrophils/100 WBC (Bld) 65.9 % Normal . [facility] Comment on above: Order Comment: Comme nt Every 6 hours while on tPA Performed By: #### P P, CBC, FIB-C #### [address] NRBC% 0.1 /100{WBC} Normal 0-0.5 [facility] Comment on above: Order Comment: Comme nt Every 6 hours while on tPA Performed By: #### P P, CBC, FIB-C #### [address] Platelet mean volume (Bld) [Entitic vol] 8.1 fL Normal 6.6-10.1 [facility] Comment on above: Order Comment: Comme nt Every 6 hours while on tPA Performed By: #### P P, CBC, FIB-C #### [address] Platelets (Bld) [#/Vol] 179 10*3/uL Normal 150-450 [facility] Comment on above: Order Comment: Comme nt Every 6 hours while on tPA Performed By: #### P P, CBC, FIB-C #### [address] RBC (Bld) [#/Vol] 4.58 10*6/uL Normal 3.90-5.60 [facility] Comment on above: Order Comment: Comme nt Every 6 hours while on tPA Performed By: #### P P, CBC, FIB-C #### [address] WBC (Bld) [#/Vol] 5.9 10*3/uL Normal 4.1-10.5 [facility] Comment on above: Order Comment: Comme nt Every 6 hours while on tPA Performed By: #### P P, CBC, FIB-C #### [address] Creatinineon 09-14-2023 Creatinine [Mass/Vol] 0.88 mg/dL Normal 0.70-1.30 [facility] Comment on above: Performed By: #### C REAT, BUN #### [address] Creatinine Clr Calc Pharmacy 86.76 Normal [facility] Comment on above: Result Comment: PERF ORMED BY: [place] [address] PATHOLOGIST FLIGHT TEACHER JOLIE MASON M.D. Performed By: #### C REAT, BUN #### [address] GFR/1.73 sq M.predicted MDRD (S/P/Bld) [Vol rate/Area] mL/min/{1.73_m2} Normal [facility] Comment on above: Performed By: #### C REAT, BUN #### [address] Fibrinogenon 09-14-2023 Fibrinogen 215 mg/dL Normal 200-393 [facility] Comment on above: Order Comment: Comme nt Every 6 hours while on tPA Result Comment: --- 09/14/232253 --- Fib previously reported as: 194 L mg/dL A hematocrit value greater than 55% may lead to inaccurate results in coagulation testing. Patients having hematocrit values >55% require a special collection tube for coagulation studies. Please contact the laboratory at [phone] for redraw instructions. PERFORMED BY: [place] [address] PATHOLOGIST FLIGHT TEACHER JOLIE MASON M.D. Performed By: #### P P, CBC, FIB-C #### [address] Fibrinogen 224 mg/dL Normal 200-393 [facility] Comment on above: Order Comment: Comme nt Every 6 hours while on tPA Result Comment: A he matocrit value greater than 55% may lead to inaccurate results in coagulation testing. Patients having hematocrit values >55% require a special collection tube for coagulation studies. Please contact the laboratory at [phone] for redraw instructions. PERFORMED BY: [address] [address] PATHOLOGIST FLIGHT TEACHER JOLIE MASON M.D. Performed By: #### F IB-C, CBC, PP #### [place] [id number] [facility] Fibrinogen 244 mg/dL Normal 200-393 [facility] Comment on above: Order Comment: Comme nt Every 6 hours while on tPA Result Comment: A he matocrit value greater than 55% may lead to inaccurate results in coagulation testing. Patients having hematocrit values >55% require a special collection tube for coagulation studies. Please contact the laboratory at [phone] for redraw instructions. PERFORMED BY: [place] [address] PATHOLOGIST FLIGHT TEACHER JOLIE MASON M.D. Performed By: #### P P, CBC, FIB-C #### [address] Type and Screenon 09-14-2023 ABO and Rh group Nom (Bld) Blood group O Rh(D) positive Normal [facility] Comment on above: Result Comment: PERF ORMED BY: [place] [address] PATHOLOGIST FLIGHT TEACHER JOLIE MASON M.D. US ankle/arm indiceson 09-12 US ankle/arm indices [facility] Main [address] [address] Ultrasound Report Signed Patient: Pawan Bustillo MR#: [id number] 3 : 1955 Acct:[id number] Age/Sex: 67 / M ADM Date: 09/12/23 Loc: [facility] Room: Type: [facility] Attending Dr: Tom Schroeder MD Ordering Provider: Tom Schroeder MD Date of Service: 09/12/23 US/US ankle/arm indices: I70.213 Copies to: Tom Schroeder MD Arterial duplex examination right common iliac artery with ABIs Indication for study: Recurrent right leg claudication PROCEDURE: Color-flow duplex scanning is used to interrogate the patient's right common iliac artery stent segment. There is no apparent flow in the common iliac artery stent which is fairly well visualized. The external iliac artery and common femoral artery remains patent. The right arm blood pressure is 115 and the left arm blood pressure is 131 mmHg. The right ankle pressure in the posterior tibial is 55 and in the dorsalis pedis is 52 mmHg giving an ankle-brachial index of 0.4. The left posterior tibial pressure is 103 and the dorsalis pedis pressure is 123 mmHg giving a left ankle-brachial index of 1.02. US/US ankle/arm indices IMPRESSION: Occluded right common iliac artery stent with severe peripheral vascular occlusive disease in the right lower extremity Impression dictated by: Tom Schroeder M.D.09/12/2023 12:20 PM Dictation Location: [place] [address] Tech: Nikole Adore Transcribed By: NOÉ 09/12/23 1220 Dictated By: Tom Schroeder MD 09/12/23 1218 Signed By: 09/12/23 1220 Normal [facility] Office Visiton 09-09-2023 Follow-up visit [id number] Pawan Bustillo 1955 Date Provider Department Center 09/09/2023 Anni-ARAVIND JOSÉ [facility] Family History Problem Relation Age of Onset Coronary artery disease Mother Coronary artery disease Sister Coronary artery disease Brother Family Status - Relation Status Age at Mother Sister Brother Level of Service:[address] [place] OFFICE/OUTPATIENT ESTABLISHED MOD MDM 30 MIN Normal [facility] Creatinineon 05-18-2023 Creatinine Clr Calc Pharmacy 88.40 Normal [facility] Comment on above: Result Comment: PERF ORMED BY: [place] [address] PATHOLOGIST FLIGHT TEACHER JOLIE MASON M.D. Performed By: #### P P, CBC, FIB-C #### [address] GFR/1.73 sq M.predicted MDRD (S/P/Bld) [Vol rate/Area] mL/min/{1.73_m2} Normal [facility] Comment on above: Performed By: #### P P, CBC, FIB-C #### [facility] [address] [place] [address] Creatinine [Mass/volume] in Serum or PlasmaOrdered By: Tom Schroeder on 05-18-2023 Creatinine [Mass/Vol] 0.89 mg/dL Normal 0.70-1.30 [facility] Comment on above: Performed By: #### P P, CBC, FIB-C #### [facility] [address] [place] [address] No Panel InformationOrdered By: Tom Schroeder on 05-18-2023 Estimated GFR (CKD-EPI) > 60.0 mL/Min [facility] Creatinine Clearance (Chem 88.[address] [facility] Urea nitrogen [Mass/volume] in Serum or PlasmaOrdered By: Tom Schroeder on 05-18-2023 Urea nitrogen [Mass/Vol] 17 mg/dL Normal 7-[address] 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 Multiple vascular stents the abdomen and groin. COMPARISON: Femoral angiogram 05/13/2021 and 05/21/2021 Spiral images were obtained through the abdomen and pelvis as well as the lower extremities following 90 mL of Isovue-370. Sagittal and coronal MIP as well as 3-D volume rendered reconstructions of the aorta, iliac and lower extremity arterial branches were reviewed. This CT exam was performed using one or more following dose reduction techniques: Automated exposure control, adjustment of the mA and/or kV according to patient size, or use of iterative reconstruction technique. Limited cuts through the lung bases show obstructive lung disease with minimal scarring. There is mild atherosclerotic plaque involving the aorta. There is moderate plaque at the iliac arteries. There is also mild plaque involving some of the visceral arteries. No aortic aneurysm or dissection is noted. The visceral arteries show normal opacification. There is mild luminal narrowing at the origin of the celiac, superior mesenteric and proximal renal artery on the right. There is moderate luminal narrowing at the origin of the renal artery on the left. There is no significant plaque at the JOSE. There are bilateral common iliac artery stents. There is opacification of the stent on the left however not on the right. The internal and external carotid arteries show plaque however there is opacification. There is some associated luminal narrowing. Plaque extends into the lower extremities bilaterally. There is prominent plaque at the distal right common femoral artery near the bifurcation with a segment of moderate to severe luminal narrowing. There is multifocal plaque at the proximal superficial femoral arteries with mild associated luminal narrowing. [id number], there is increasing plaque at the distal superficial femoral arteries, left side worse than right. Plaque is present at both popliteal arteries, right side worse than left. The trifurcation is patent on both sides. There is no prominent plaque below the knees. A tiny suspected left hepatic cyst is seen. No additional intrahepatic masses are identified. No calcified gallstones are seen. The spleen, pancreas and adrenal glands show no acute findings. There are symmetric bilateral renal nephrograms, without hydronephrosis. There is a tiny right renal cyst. No lymphadenopathy or ascites is seen. There is a small umbilical hernia containing fat. There is fluid within the stomach. The small bowel loops are not distended. Stool is seen within the colon, greater on the right. There are scattered diverticula. There is slight levoscoliotic curvature and degenerative changes at the spine. Images through the pelvis show no distended small bowel. There is no appendiceal inflammation. There is mild distal colonic stool. There are some additional distal descending and sigmoid diverticula. No active inflammation is seen. The prostate is mildly prominent and contains calcification. No bladder abnormalities are seen. There is no ascites. CT/CT angio abd aorta runoff IMPRESSION: BILATERAL COMMON ILIAC ARTERY STENTS WITH THROMBOSIS OF THE RIGHT. ATHEROSCLEROTIC DISEASE INVOLVING THE AORTA, VISCERAL AND LOWER EXTREMITY VESSELS AT THE THIGHS WITH ASSOCIATED LUMINAL NARROWING, DESCRIBED. NO ANEURYSM OR DISSECTION. NO BOWEL OR URINARY TRACT OBSTRUCTION. DIVERTICULOSIS. PROSTATE HYPERTROPHY. Impression dictated by: Sonal Kebede M.D.05/03/2023 12:32 PM Dictation Location: [id number] Transcribed By: NOÉ 05/03/23 1232 Dictated By: Sonal Kebede MD 05/03/23 0846 Signed By: 05/03/23 1232 Normal [facility] ISTAT XRay CREon 05-02-2023 ISTAT GFR > 60.0 Normal [facility] Comment on above: Result Comment: PERF ORMED BY: [place] [address] PATHOLOGIST FLIGHT TEACHER JOLIE MASON M.D. Performed By: #### P P, CBC, FIB-C #### [facility] [address] [place] [address] No Panel InformationOrdered By: Madie Honeycutt on 05-02-2023 Bedside Estimated GFR (eGFR) > 60.[address] [facility] Whole blood creatinine measu rementOrdered By: Madie Honeycutt on 05-02-2023 Creatinine [Mass/Vol] 1.0 mg/dL Normal 0.6-1.3 [facility] Comment on above: ER/ESD physician is notified/shown all ISTAT results.Critical values may be confirmed by laboratory testing ifdeemed necessary by ER attending doctor. Result Comment: ER/E SD physician is notified/shown all ISTAT results. Critical values may be confirmed by laboratory testing if deemed necessary by ER attending doctor. Performed By: #### P P, CBC, FIB-C #### [facility] [address] [place] [address] CBC AUTO DIFFon 11-01-2022 BASO # 0.0 103/ul Normal 0.0-0.1 [facility] Comment on above: Performed By: #### C BC #### [facility] [address] [place] [address] Dr. Kathy Chang Basophils/100 WBC (Bld) 0.2 % Normal 0.2-2.0 [facility] Comment on above: Performed By: #### C BC #### [facility] [address] [place] [address] Dr. Kathy Chang EO # 0.0 103/ul Normal 0.0-0.7 [facility] Comment on above: Performed By: #### C BC #### [facility] [address] [place] [address] Dr. Kathy Chang Eosinophils/100 WBC (Bld) 0.1 % Critically low 0.9-7.0 [facility] Comment on above: Performed By: #### C BC #### [facility] [address] [place] [address] Dr. Kathy Chang Erythrocyte distribution width (RBC) [Ratio] 12.9 % Normal 11.0-15.0 [facility] Comment on above: Performed By: #### C BC #### [facility] [address] [place] [address] Dr. Kathy Chang Hematocrit (Bld) [Volume fraction] 47.6 % Normal 42.0-54.0 [facility] [facility] Comment on above: Performed By: #### C BC #### [facility] [address] [place] [address] Dr. Kathy Chang Hemoglobin (Bld) [Mass/Vol] 16.1 g/dL Normal 14.0-18.0 [facility] Comment on above: Performed By: #### C BC #### [facility] [address] [place] [address] Dr. Kathy Chang IG # 0.07 10e3/ul Critically high 0.00-0.03 [facility] Comment on above: Performed By: #### C BC #### [facility] [address] [place] [address] Dr. Kathy Chang IG % 0.4 % Normal 0.0-0.5 [facility] Comment on above: Performed By: #### C BC #### [facility] [address] [address] [address] Kathy Chang LYMPH # 1.0 103/ul Critically low 1.2-3.8 [facility] Comment on above: Performed By: #### C BC #### [facility] [address] [place] [address] Dr. Kathy Chang Lymphocytes/100 WBC (Bld) 6.0 % Critically low 20.5-60.0 [facility] Comment on above: Performed By: #### C BC #### [facility] [address] [place] [address] Dr. Kathy Chang MANUAL DIFF REQ NO Normal [facility] Comment on above: Performed By: #### C BC #### [facility] [address] [place] [address] Dr. Kathy Chang MCH (RBC) [Entitic mass] 32.8 pg Normal 25.9-34.0 [facility] Comment on above: Performed By: #### C BC #### [facility] [address] [place] [address] Dr. Kathy Chang MCHC (RBC) [Mass/Vol] 33.8 g/dL Normal 29.9-35.2 [facility] Comment on above: Performed By: #### C BC #### [facility] [address] [place] [address] Dr. Kathy Chang MCV (RBC) [Entitic vol] 96.9 fL Critically high 80.0-94.0 [facility] Comment on above: Performed By: #### C BC #### [facility] [address] [place] [address] Dr. Kathy Chang MONO # 0.8 103/ul Normal 0.3-0.8 [facility] Comment on above: Performed By: #### C BC #### [facility] [address] [place] [address] Dr. Kathy Chang Monocytes/100 WBC (Bld) 5.1 % Normal 1.7-12.0 [facility] Comment on above: Performed By: #### C BC #### [facility] [address] [address] [address] Kathy Chang NEUT # 13.9 103/ul Critically high 1.4-6.5 [facility] Comment on above: Performed By: #### C BC #### [facility] [address] [place], [place] [id number] Dr. Kathy Chang Neutrophils/100 WBC (Bld) 88.2 % Critically high 43.0-75.0 [facility] Comment on above: Performed By: #### C BC #### [facility] [address] [place] [address] Dr. Kathy Chang Platelet mean volume (Bld) [Entitic vol] 9.2 fL Critically low 9.5-13.5 [facility] Comment on above: Performed By: #### C BC #### [facility] [address] [place] [address] Dr. Kathy Chang PLT 190 103/ul Normal 150-450 [facility] Comment on above: Performed By: #### C BC #### [facility] [address] [place] [address] Dr. Kathy Chang RBC 4.91 106/ul Normal 4.70-6.10 [facility] Comment on above: Performed By: #### C BC #### [facility] [address] [place] [address] Dr. Kathy Chang WBC 15.8 103/ul Critically high 4.0-11.0 [facility] Comment on above: Performed By: #### C BC #### [facility] [address] [place] [address] Dr. Kathy Chang PROF CHEM 8 (BAS METB)on Anion gap [Moles/Vol] 13.4 mmol/L Normal Th [facility] Comment on above: Performed By: #### B MP #### [facility] [address] [place] [address] Dr. Kathy Chang Calcium [Mass/Vol] 9.2 mg/dL Normal 8.5-10.1 [facility] Comment on above: Performed By: #### B MP #### [facility] [address] [address] [address] Kathy Chang Chloride [Moles/Vol] 100 mmol/L Normal 98-107 [facility] Comment on above: Performed By: #### B MP #### [facility] [address] [address] [address] Kathy Chang CO2 [Moles/Vol] 30.3 mmol/L Normal 21.0-32.0 [facility] Comment on above: Performed By: #### B MP #### [facility] [address] [place] [address] Dr. Kathy Chang Creatinine [Mass/Vol] 1.01 mg/dL Normal 0.70-1.30 [facility] Comment on above: Performed By: #### B MP #### [facility] [address] [place] [address] Dr. Kathy Chang EGFR-AF TANZANIAN >60 Normal >=60 [facility] Comment on above: Performed By: #### B MP #### [facility] [address] [address] [address] Kathy Chang EGFR-NON AF TANZANIAN >60 Normal >=60 [facility] Comment on above: Performed By: #### B MP #### [facility] [address] [address] [address] Kathy Chang Glucose [Mass/Vol] 109 mg/dL Critically high 74-106 [facility] Comment on above: Performed By: #### B MP #### [facility] [address] [address] [address] Kathy Chang Potassium [Moles/Vol] 4.7 mmol/L Normal 3.5-5.1 [facility] Comment on above: Performed By: #### B MP #### [facility] [address] [place] [address] Dr. Kathy Chang Sodium [Moles/Vol] 139 mmol/L Normal 136-145 [facility] Comment on above: Performed By: #### B MP #### [facility] [address] [address] [address] Kathy Chang Urea nitrogen [Mass/Vol] 19.0 mg/dL Critically high 7.0-18.0 [facility] Comment on above: Performed By: #### B MP #### [facility] [address] [place] [address] Dr. Kathy Chang Urea nitrogen/Creatinine [Mass ratio] 18.8 mg/mg Normal [facility] Comment on above: Performed By: #### B MP #### [facility] [address] [place] [address] Dr. Kathy Chang CBC AUTO DIFFon 09-28-2022 BASO # 0.0 103/ul Normal 0.0-0.1 [facility] Comment on above: Performed By: #### C BC #### [facility] [address] [place] [address] Dr. Kathy Chang Basophils/100 WBC (Bld) 0.5 % Normal 0.2-2.0 [facility] Comment on above: Performed By: #### C BC #### [facility] [address] [place] [address] Dr. Kathy Chang EO # 0.2 103/ul Normal 0.0-0.7 [facility] Comment on above: Performed By: #### C BC #### [facility] [address] [place] [address] Dr. Kathy Chang Eosinophils/100 WBC (Bld) 2.6 % Normal 0.9-7.0 [facility] Comment on above: Performed By: #### C BC #### [facility] [address] [place] [address] Dr. Kathy Chang Erythrocyte distribution width (RBC) [Ratio] 12.6 % Normal 11.0-15.0 [facility] Comment on above: Performed By: #### C BC #### [facility] [address] [place] [address] Dr. Kathy Chang Hematocrit (Bld) [Volume fraction] 50.6 % Normal 42.0-54.0 [facility] Comment on above: Performed By: #### C BC #### [facility] [address] [place] [address] Dr. Kathy Chang Hemoglobin (Bld) [Mass/Vol] 17.3 g/dL Normal 14.0-18.0 [facility] Comment on above: Performed By: #### C BC #### [facility] [address] [place] [address] Dr. Kathy Chang IG # 0.08 10e3/ul Critically high 0.00-0.03 [facility] Comment on above: Performed By: #### C BC #### [facility] [address] [place] [address] Dr. Kathy Chang IG % 0.9 % Critically high 0.0-0.5 [facility] Comment on above: Performed By: #### C BC #### [facility] [address] [place] [address] Dr. Kathy Chang LYMPH # 1.8 103/ul Normal 1.2-3.8 [facility] Comment on above: Performed By: #### C BC #### [facility] [address] [place] [address] Dr. Kathy Chang Lymphocytes/100 WBC (Bld) 20.9 % Normal 20.5-60.0 [facility] Comment on above: Performed By: #### C BC #### [facility] [address] [place] [address] Dr. Kathy Chang MANUAL DIFF REQ NO Normal [facility] Comment on above: Performed By: #### C BC #### [facility] [address] [place] [address] Dr. Kathy Chang MCH (RBC) [Entitic mass] 33.1 pg Normal 25.9-34.0 [facility] Comment on above: Performed By: #### C BC #### [facility] [address] [place] [address] Dr. Kathy Chang MCHC (RBC) [Mass/Vol] 34.2 g/dL Normal 29.9-35.2 [facility] Comment on above: Performed By: #### C BC #### [facility] [address] [place] [address] Dr. Kathy Chang MCV (RBC) [Entitic vol] 96.9 fL Critically high 80.0-94.0 [facility] Comment on above: Performed By: #### C BC #### [facility] [address] [place] [address] Dr. Kathy Chang MONO # 0.6 103/ul Normal 0.3-0.8 [facility] Comment on above: Performed By: #### C BC #### [facility] [address] [address] [address] Kathy Chang Monocytes/100 WBC (Bld) 6.7 % Normal 1.7-12.0 [facility] Comment on above: Performed By: #### C BC #### [facility] [address] [place] [address] Dr. Kathy Chang NEUT # 6.0 103/ul Normal 1.4-6.5 [facility] Comment on above: Performed By: #### C BC #### [facility] [address] [place] [address] Dr. Kathy Chang Neutrophils/100 WBC (Bld) 68.4 % Normal 43.0-75.0 [facility] Comment on above: Performed By: #### C BC #### [facility] [address] [place] [address] Dr. Kathy Chang Platelet mean volume (Bld) [Entitic vol] 9.0 fL Critically low 9.5-13.5 [facility] Comment on above: Performed By: #### C BC #### [facility] [address] [place] [address] Dr. Kathy Chang PLT 200 103/ul Normal 150-450 [facility] Comment on above: Performed By: #### C BC #### [facility] [address] [place] [address] Dr. Kathy Chang RBC 5.22 106/ul Normal 4.70-6.10 [facility] Comment on above: Performed By: #### C BC #### [facility] [address] [place] [address] Dr. Kathy Chang WBC 8.7 103/ul Normal 4.0-11.0 [facility] Comment on above: Performed By: #### C BC #### [facility] [address] [address] [address] Kathy Chang LIPID PROFILEon 09-28-2022 CHOL-HDL RATIO NORM SEE BELOW Normal [facility] Comment on above: Result Comment: 3.3 - 4.4 LOW RISK 4.4 - 7.1 AVERAGE RISK 7.1 - 11.0 MODERATE RISK >11.0 HIGH RISK Performed By: #### C MP, LIPID #### [facility] [address] [address] [address] Kathy Chang Cholesterol [Mass/Vol] 145 mg/dL Normal <=200 Th [facility] Comment on above: Performed By: #### C MP, LIPID #### [facility] [address] [place] [address] Dr. Kathy Chang Cholesterol in HDL [Mass/Vol] 50 mg/dL Normal 40-60 [facility] Comment on above: Performed By: #### C MP, LIPID #### [facility] [address] [place] [address] Dr. Kathy Chang Cholesterol in LDL [Mass/Vol] 83.8 mg/dL Normal [facility] Comment on above: Performed By: #### C MP, LIPID #### [facility] [address] [place] [address] Dr. Kathy Chang Cholesterol.total/Chol esterol in HDL [Mass ratio] 2.9 {ratio} Normal [facility] Comment on above: Performed By: #### C MP, LIPID #### [facility] [address] [place] [address] Dr. Kathy Chang HDL NORMAL > or = 60 mg/dl - LO W CARDIOVASCULAR RISK <40 mg/dl - HIGH CARDIOVASCULAR RISK Normal [facility] Comment on above: Performed By: #### C MP, LIPID #### [facility] [address] [place] [address] Dr. Kathy Chang LDL CALC NORMAL SEE BELOW Normal [facility] Comment on above: Result Comment: <100 mg/dl OPTIMAL 100 - 129 mg/dl NEAR OR ABOVE OPTIMAL 130 - 159 mg/dl BORDERLINE HIGH 160 - 189 mg/dl HIGH >190 mg/dl VERY HIGH Performed By: #### C MP, LIPID #### [facility] [address] [place] [address] Dr. Kathy Chang Triglyceride [Mass/Vol] 56 mg/dL Normal <=150 [facility] Comment on above: Performed By: #### C MP, LIPID #### [facility] [address] [address] [address] Kathy Chang VLDL CALC 11.2 mg/dL Normal [facility] Comment on above: Performed By: #### C MP, LIPID #### [facility] [address] [place] [address] Dr. Kathy Chang PROF 14(COMP METB)on 023 Albumin [Mass/Vol] 4.2 g/dL Normal 3.4-5.0 [facility] Comment on above: Performed By: #### C MP, LIPID #### [facility] [address] [place] [address] Dr. Kathy Chang Albumin/Globulin [Mass ratio] 1.4 {ratio} Normal [facility] Comment on above: Performed By: #### C MP, LIPID #### [facility] [address] [place] [address] Dr. Kathy Chang ALP [Catalytic activity/Vol] 88 U/L Normal 46-116 [facility] Comment on above: Performed By: #### C MP, LIPID #### [facility] [address] [place] [address] Dr. Kathy Chang ALT [Catalytic activity/Vol] 26 U/L Normal 16-63 [facility] Comment on above: Performed By: #### C MP, LIPID #### [facility] [address] [place] [address] Dr. Kathy Chang Anion gap [Moles/Vol] 8.8 mmol/L Normal [facility] Comment on above: Performed By: #### C MP, LIPID #### [facility] [address] [place] [address] Dr. Kathy Chang AST [Catalytic activity/Vol] 17 U/L Normal 15-37 [facility] Comment on above: Performed By: #### C MP, LIPID #### [facility] [address] [address] [address] Kathy Chang Bilirubin [Mass/Vol] 0.7 mg/dL Normal 0.2-1.0 [facility] Comment on above: Performed By: #### C MP, LIPID #### [facility] [address] [address] [address] Kathy Chang Calcium [Mass/Vol] 9.8 mg/dL Normal 8.5-10.1 [facility] Comment on above: Performed By: #### C MP, LIPID #### [facility] [address] [place] [address] Dr. Kathy Chang Chloride [Moles/Vol] 103 mmol/L Normal 98-107 [facility] Comment on above: Performed By: #### C MP, LIPID #### [facility] [address] [place] [address] Dr. Kathy Chang CO2 [Moles/Vol] 32.3 mmol/L Critically high 21.0-32.0 [facility] Comment on above: Performed By: #### C MP, LIPID #### [facility] [address] [place] [address] Dr. Kathy Chang Creatinine [Mass/Vol] 0.97 mg/dL Normal 0.70-1.30 [facility] Comment on above: Performed By: #### C MP, LIPID #### [facility] [address] [place] [address] Dr. Kathy Chang EGFR-AF TANZANIAN >60 Normal >=60 [facility] Comment on above: Performed By: #### C MP, LIPID #### [facility] [address] [place] [address] Dr. Kathy Chang EGFR-NON AF TANZANIAN >60 Normal >=60 [facility] Comment on above: Performed By: #### C MP, LIPID #### [facility] [address] [place] [address] Dr. Kathy Chang Globulin (S) [Mass/Vol] 3.1 g/dL Normal [facility] Comment on above: Performed By: #### C MP, LIPID #### [facility] [address] [address] [address] Kathy Chang Glucose [Mass/Vol] 111 mg/dL Critically high 74-106 [facility] Comment on above: Performed By: #### C MP, LIPID #### [facility] [address] [place] [address] Dr. Kathy Chang Potassium [Moles/Vol] 5.1 mmol/L Normal 3.5-5.1 [facility] Comment on above: Performed By: #### C MP, LIPID #### [facility] [address] [address] [address] Kathy Chang Protein [Mass/Vol] 7.3 g/dL Normal 6.4-8.2 [facility] Comment on above: Performed By: #### C MP, LIPID #### [facility] [address] [place] [address] Dr. Kathy Chang Sodium [Moles/Vol] 139 mmol/L Normal 136-145 [facility] Comment on above: Performed By: #### C MP, LIPID #### [facility] [address] [address] [address] Kathy Chang Urea nitrogen [Mass/Vol] 20.0 mg/dL Critically high 7.0-18.0 [facility] Comment on above: Performed By: #### C MP, LIPID #### [facility] [address] [place] [address] Dr. Kathy Chang Urea nitrogen/Creatinine [Mass ratio] 20.6 mg/mg Normal [facility] Comment on above: Performed By: #### C MP, LIPID #### [facility] [address] [place] [address] Dr. Kathy Chang Lab Reportson 06-18-2022 Lab Reports [id number] Normal [facility] CT CHEST WO CONon 06-16-2022 CT CHEST WO CON EXAMINATION: CT CHES T WO CON HISTORY: Lung field abnormal ; follow-up pulmonary nodules COMPARISON: CT chest 12/14/2021 TECHNIQUE: Axial, Coronal, and Sagittal images were created without the administration of IV contrast material. Dose reduction techniques were achieved by using automated exposure control and/or adjustment of mA and/or kV according to patient size and/or use of iterative reconstruction technique. FINDINGS: LUNGS: Marked emphysematous changes throughout the lungs. New 7 mm opacity within left lower lobe superior segment. Interval decrease in trace amount of stranding within left upper lobe posterior segment adjacent major fissure. PLEURA: No mass, effusion, or pneumothorax. VASCULATURE: No abnormality. ANDRIA: No mass or adenopathy. MEDIASTINUM: No mass or adenopathy. CARDIAC: No enlargement or pericardial thickening. AORTA: No aneurysm or dissection. CHEST WALL: No mass or axillary adenopathy. BONES: No bone lesion or fracture. LIMITED ABDOMEN: No suspicious findings. Limited images of the upper abdomen. OTHER: Negative. IMPRESSION: 1. Further decrease in the mild stranding within left upper lobe likely representing residual scarring or atelectasis. 2. New 7 mm opacity within left lower lobe superior segment; granuloma versus infiltrate. Consider follow-up CT chest without contrast in 6 months to document stability versus change. 3. Marked emphysematous changes. Electronically authenticated by: MUNIR GARCIA Date: 2022-06-16 15:46 Normal [facility] Ambulatory Visit Summaryon 0 04-19-2022 Ambulatory Visit Summary PAWAN BUSTILLO Dale :1955 Visit Date:04/19/2022 Ambulatory Visit Instructions Your Diagnosis BPH with urinary obstruction Prostatitis Tests Performed Urnls Dip Stick Auto w/o Microscopy POC 84222 Your Care Team Attending Physician - Maritza SCOTT MD Primary Care Physician - KEATON RICO MD This Is Your Medications List tamsulosin (Flomax 0.4 mg Cap) Contact prescribing physician if questions or concerns acyclovir (acyclovir 400 mg Tab) albuterol (Ventolin HFA 90 mcg/inh Aerosol) aspirin (aspirin 81 mg oral capsule) erythromycin ophthalmic (erythromycin ophthalmic 0.5% ointment) fluticasone/umeclidinium/v ilanterol (Trelegy Ellipta 100 mcg-62.5 mcg-25 mcg inhalation powder) gatifloxacin ophthalmic (gatifloxacin 0.5% ophthalmic solution) lisinopril (lisinopril 10 mg Tab) prasugrel (prasugrel 10 mg Tab) simvastatin (simvastatin 40 mg Tab) Procedures Performed Hernia. Discharge Vitals Respiratory Rate 16 Height 180.0 cm Height 180 cm Weight 85.0 kg Weight 85 kg BMI 26.23 What to do next Scheduled Follow-Up Appointments Tuesday. 2022 10:45 AM EDT With: Maritza SCOTT MD Where: [facility] [place] Normal [facility] Patient Educationon 04-19-20 Patient Education Infectious Disease Prostatitis Prostatitis is swelling or inflammation of the prostate gland. The prostate is a walnut-sized gland that is involved in the production of semen. It is located below a man's bladder, in front of the rectum. There are four types of prostatitis: ? Chronic nonbacterial prostatitis. This is the most common type of prostatitis. It may be associated with a viral infection or autoimmune disorder. ? Acute bacterial prostatitis. This is the least common type of prostatitis. It starts quickly and is usually associated with a bladder infection, high fever, and shaking chills. It can occur at any age. ? Chronic bacterial prostatitis. This type usually results from acute bacterial prostatitis that happens repeatedly (is recurrent) or has not been treated properly. It can occur in men of any age but is most common among middle-aged men whose prostate has begun to get larger. The symptoms are not as severe as symptoms caused by acute bacterial prostatitis. ? Prostatodynia or chronic pelvic pain syndrome (CPPS). This type is also called pelvic floor disorder. It is associated with increased muscular tone in the pelvis surrounding the prostate. What are the causes? Bacterial prostatitis is caused by infection from bacteria. Chronic nonbacterial prostatitis may be caused by: ? Urinary tract infections (UTIs). ? Nerve damage. ? A response by the body?s disease-fighting system (autoimmune response). ? Chemicals in the urine. The causes of the other types of prostatitis are usually not known. What are the signs or symptoms? Symptoms of this condition vary depending upon the type of prostatitis. If you have acute bacterial prostatitis, you may experience: ? Urinary symptoms, such as: ? Painful urination. ? Burning during urination. ? Frequent and sudden urges to urinate. ? Inability to start urinating. ? A weak or interrupted stream of urine. ? Vomiting. ? Nausea. ? Fever. ? Chills. ? Inability to empty the bladder completely. ? Pain in the: ? Muscles or joints. ? Lower back. ? Lower abdomen. If you have any of the other types of prostatitis, you may experience: ? Urinary symptoms, such as: ? Sudden urges to urinate. ? Frequent urination. ? Difficulty starting urination. ? Weak urine stream. ? Dribbling after urination. ? Discharge from the urethra. The urethra is a tube that opens at the end of the penis. ? Pain in the: ? Testicles. ? Penis or tip of the penis. ? Rectum. ? Area in front of the rectum and below the scrotum (perineum). ? Problems with sexual function. ? Painful ejaculation. ? Bloody semen. How is this diagnosed? This condition may be diagnosed based on: ? A physical and medical exam. ? Your symptoms. ? A urine test to check for bacteria. ? An exam in which a health care provider uses a finger to feel the prostate (digital rectal exam). ? A test of a sample of semen. ? Blood tests. ? Ultrasound. ? Removal of prostate tissue to be examined under a microscope (biopsy). ? Tests to check how your body handles urine (urodynamic tests). ? A test to look inside your bladder or urethra (cystoscopy). How is this treated? Treatment for this condition depends on the type of prostatitis. Treatment may involve: ? Medicines to relieve pain or inflammation. ? Medicines to help relax your muscles. ? Physical therapy. ? Heat therapy. ? Techniques to help you control certain body functions (biofeedback). ? Relaxation exercises. ? Antibiotic medicine, if your condition is caused by bacteria. ? Warm water baths (sitz baths). Sitz baths help with relaxing your pelvic floor muscles, which helps to relieve pressure on the prostate. Follow these instructions at home: ? Take tuue-ywg-kytncqs and prescription medicines only as told by your health care provider. ? If you were prescribed an antibiotic, take it as told by your health care provider. Do not stop taking the antibiotic even if you start to feel better. ? If physical therapy, biofeedback, or relaxation exercises were prescribed, do exercises as instructed. ? Take sitz baths as directed by your health care provider. For a sitz bath, sit in warm water that is deep enough to cover your hips and buttocks. ? Keep all follow-up visits as told by your health care provider. This is important. Contact a health care provider if: ? Your symptoms get worse. ? You have a fever. Get help right away if: ? You have chills. ? You feel nauseous. ? You vomit. ? You feel light-headed or feel like you are going to faint. ? You are unable to urinate. ? You have blood or blood clots in your urine. This information is not intended to replace advice given to you by your health care provider. Make sure you discuss any questions you have with your health care provider. Document Released: 07/15/2001 Document Revised: 09/30/2018 Docum (more content not included)... Normal [facility] Urology Office/Clinic Noteon 04-19-2022 Urology Office/Clinic Note Chief Complaint Follow up from Cysto/UD HPI Staff Villalta is here today for a 3 month follow up from Cysto/UD done on 01/19/22. Previous DX: BPH with urinary obstruction, urinary frequency, prostatitis.Pt is currently taking Flomax 0.4mg BID. PVR was 63ml. Dysuria: _Denies Incomplete bladder emptying: _Denies Hematuria: _Denies Frequency: _Denies Urgency: _Denies Nocturia: _Denies Stream: _pt states his stream has been getting better Leaking: _Denies Post void dripping: _yes Wearing pads/ Depends: _Denies Urge incontinence: _Denies Stress incontinence: _Denies Incontinence without Sensory Awareness: _Denies Abdominal pain: _Denies Flank pain: _Denies Sexual complaints: _ History of Present Illness I have reviewed and verified the staff HPI to be accurate for this encounter. Review of Systems PHQ Score Initial Depression Screen Score: 0 ROS - Provider Constitutional: denies weight loss, denies hot flashes. Eyes: denies eye problems. Gastrointestinal: denies nausea, denies vomiting. Cardiovascular: denies chest pain or angina. Integumentary: no dryness Musculoskeletal: denies musculoskeletal symptoms. ENMT: denies otolaryngeal symptoms. Respiratory: no shortness of breath. Heme/Lymph: denies easy bleeding tendency, denies easy bruising tendency. Psychiatric: no confusion, no anxiety. Genitourinary: denies dysuria, denies hematuria, denies discharge, denies urinary frequency, denies urinary hesitancy, denies nocturia, denies incontinence, denies genital sores, denies decreased libido, and denies erectile dysfunction. Physical Exam Vitals & Measurements RR: 16 HT: 180.0 cm HT: 180 cm WT: 85.0 kg WT: 85 kg BMI: 26.23 General Appearance: alert, no distress, well nourished, well developed male. Genitourinary: normal scrotum, normal testes, normal urethra, normal epididymis, normal vas deferens/spermatic cord. Flank Pain: none. Bladder: nonpalpable. Assessment/Plan 1. BPH with urinary obstruction (N40.1: Benign prostatic hyperplasia with lower urinary tract symptoms) Last PSA drawn 04/20/21 was 1.3ng/mL and is being monitored by PCP- no other PSAs to look over. Pt is on Flomax 0.4mg BID Cysto/UROS done on 01/19/22 PVR today was 63mL. Overall pt states that he is doing well with his urination. Pt states that his frequency and stream have improved significantly. Pt states that when he consumes alcohol he voids more often. Discussed with pt that alcohol makes your kidneys produce more urine so that you void more often. Pt to continue Flomax BID. Will give pt a slip today to get his PSA checked. If pt has any concerns he can contact our office. Pt understands and acknowledges. 2. Prostatitis (N41.9: Inflammatory disease of prostate, unspecified) UA today neg for infection. he has no symptoms of infection. Follow-up With When Contact Information TSERING BARRY, XENIA Quinn In 6 months 10/17/2022 EDT [facility] [address] , [place] [address] [phone] Additional Instructions: PVR PSA Patient Education Prostatitis Roslyn Maloney_, personally scribed for Dr. Scott on 04/19/2022 10:41:43. . Documentation recorded by the scribeRoslyn, accurately reflects the services(s) I performed and decisions made by me. Problem List/Past Medical History Ongoing Arthritis BPH with urinary obstruction COPD (chronic obstructive pulmonary disease) Emphysema of lung Feeling of incomplete bladder emptying Glaucoma Heart attack High cholesterol Incomplete bladder emptying Poor urinary stream Prostatitis Smoker Urgency of urination Urinary frequency Historical No qualifying data Procedure/Surgical History Hernia. Medications acyclovir 400 mg Tab, Oral, BID aspirin 81 mg oral capsule, Oral, q4hr erythromycin ophthalmic 0.5% ointment, 0.5 in, Eye-Both, QID, Not taking Flomax 0.4 mg Cap, 0.4 mg= 1 cap(s), Oral, BID, 3 refills gatifloxacin 0.5% ophthalmic solution, BID, Not taking lisinopril 10 mg Tab, Oral, Daily prasugrel 10 mg Tab, 10 mg= 1 tab(s), Oral, Daily simvastatin 40 mg Tab, Oral, Once a day (at bedtime) Trelegy Ellipta 100 mcg-62.5 mcg-25 mcg inhalation powder, Inhalation, Daily, Not taking Ventolin HFA 90 mcg/inh Aerosol, Inhalation, q6hr Allergies No Known Medication Allergies Social History Tobacco 10 or more cigarettes (1/2 pack or more)/day in last 30 days Tobacco Use:. Cigarettes, Yes, 04/19/2022 Family History Arthritis: Mother and Father. Diabetes clinic: Father. Heart disease: Father. High cholesterol: Father. Hypertension: Father. Immunizations Vaccine Date Status Comments influenza virus vaccine, inactivated - Not Given Temporary contraindication - reschedule SARS-CoV-2 (COVID-19) Ad26 vaccine 11/07/2020 Recorded SARS-CoV-2 (COVID-19) Ad26 vaccine 10/10/2020 Recorded Lab Results Ambulatory Point of Care Results Bilirubin U (more content not included)... Normal [facility] Comment on above: Result Comment: Elec tronically Signed By: Maritza SCOTT MD\.br\Date and Time Signed: 04/19/22 10:43 EDT\.br\Electronically Co-Signed By: Roslyn Rowe MA\.br\Date and Time Co-Signed: 04/19/22 10:42 EDT Coding Summary.on 01-26-2022 Coding Summary. [id number] Gh0bWw +PGhlYWQ+OP5CADHfA26chCCaz F2OQ5oGUX2CQPXRWMIDLF3PGA5 deUL6FGhzK5KshlOa ZxlouNMjWP20AEe1CPN3hYejAB suwQ8cbHSyN1j3ViIyGH89uH21 NTrvGBNjDbK4JdHvczmjrMRp Y6ymUaJylLWiKyf+PHRhYmxlIH blXJJmEZgaFTXiOuCfaJzeYO4l Dp6hSCTtBQRzhPouvFTgQoSt n3spJRLeDQelFH1wwJceU9PvdQ D1BZYrl0t0Zw20vNH+PHRkIHN0 xJsxMGkax605DnRbg9mlFLM8 mJPkLAawCOU1W50rz1K5DKPiAE UsWBY9gON0hI4faXxscqybA0Iu wGCeFiH8DXC4gYGhqX3bbOzr oujjwM4tHqa+O12CMD2LJFNGYW 0ILeo8P4KiUtabkDZ+TA31KFTw PS29pCPbiYOpu2twpLh4WvSg KHOcTDZ5wWqcDCzvl8HoRDJxU0 8ppSPqa8Z8URBkpOawuVWsCvMc nVV2rQ4zHAcjiqxqi4pkgpnu Qzcpk0gslh51oX08J72dJWdeCY BgBQH6JHLpNSLupEreuu9quZ4g Ii8+AEjdm4cdl5koaMm4UvQw DUUypoFnkSfbBTZ3b9PrRg40C6 HtuJovh5OrLsz8oe83yMFwv4I0 rUN8RLsjXHOtuK2eUAcsMgV9 SMYpDyDlyJ55eALnCApzBs8lmP azrFxfRM9qUGIxsfjqDNWszD6n MVGieSArqYufWI7vUCSyecuw s395XmLeRDW4UOOhnOMlQ7LmtH 9bIhOtOUQwCRNlU6DirOAxFKip A377JVkqDtU3RYMjaaKpQ8Bm RAPioSsgMeO3r2E7Fh7Fo3Tqni xtKOE6QMqfBQL5EiZ7UxVlReT0 O5EyFyt9SXVhwFmhGA8pC2Ia PUBfiskgjfmltVF6AQKdGFKcoG 78aMBeHVyuUt8wj5Y4h876FNPb TPMzmU78Xq9xkSwhCSYnpVNG hH7jmuidu0nsrlmuVgAwCAAuWX j5EXk5HOIveRofAgHuBKN4IpH6 UOS4lXZenW7wpQmabjwpsU9u Oyc+M34gpF5fCJG6KFU1huicMR MkvsHzLM48CH94A1QgLyntqHAw bGU+MNButlGbqUwiYC1lIdEe x9chu7EeWNxrO7AkYAHeZKzoLs p1DUJjRWG2yUM9dQ6cBGQhYLpl s6G5oDZ4A3UezsXxum9lg2wf MWZvFAvfT26iqFTcy4Z6NLIlkH T4OIDqoDljLkTqjA23Vhx+PGNv tIvkw4KqEnrit9bgy2jmqVz0 KiImBKRvtcJysWzvGOY5g5HeWz 89Y01cCFagRUIiKKQxWTUqSJRu uGolxz5kvB8gZw4+PGNvbCB3 yKH4cQ9jIOBoJpY2YPdcF659Ky HarXHiTzugf6qcx3eaaJi0UnZi ONXxmzSljIlwRKJ3o6IzKb63 X34yYQnkDWMqYCVlCZFmMRDxgL vlud2sbC9pYf3+AX3wf6mpev52 rD45nWO+EBNxANU8kWztNJpx BSShtJ0nXDfrYjA6ZLDiSjJymH 02oVDhZHobPg7maRkobLeqKG0p LGNvpohbs239FyTup5jhJDVl sDIkCMpgJTY2P22zi7S9KIGoUP ZdFBF3gRU8qJ2wnItffzfdrUIl sHjrnjLylIjaMDijYGxnG585 IHRvcDsnPlBhdGllbnQgTmFtZT k3Z8AgNyn6MNQwrBizPV0reEPp FCboFe0ihQvwiMowRT9pIHWd kwfif242FwRrb5chROKdpAWpBC stESP6H23dr5V7DXZkMGQcDWT0 oGZ9tC3wwKideonwvWRbuKiq nzTfgZflBAtbTUuoE766NOOexD yaVqMqtdEpLVEahFM1WB24PA34 lMMam8W3cWD5F5EoHUJgrtli brvkyDN2XLWqOBDoiA08Yk0siW lbWn8aKFSsZGV4CYRxkRLhW0Jb yZ6oCoCkKJTrYBNqC4XpwFTe CChuL680UYonSlS7HVTbigWsV9 ZbFVRrxWpeYmA7p3K4Gl8HX0T4 JC67RN38rKTeh0U9lHD5U1Eo JZWggdltqarrjWB2UJCkMXOukO 09Wl7rpOriJs7hMITiZWV5DADm sTFtA2CgrR1uDuFsBYAaIEOs B3LqvIRyWYgeG727WNihVtS2HG RqdqQgN8KsCNThzKbuVfH7r3H6 Si8IXJi4UM81GY84wXEqc6I1 dIR4T3LrVPCxvirkrdpxuOU4KP PrJAIvgT04Ae8imMdbYo5cZCIv BZM3LEOgiZZmQ4RoqX9kEpAu WDFePOUxM9MjnFWbUIkpG127WP rlUgN6OFUdztKbX8OjXQWltBoz TsX2q6J4Rb0HDMXjEX86ZTM1 tIT2IA36RU22C0GiTmezgXTnrN U+PHRhYmxlIHdpZHRoPScxMDAl RfPzfSevVD2dYi9fJFAmATVj xCpgbHOmTyVal0ruYPIhGKsrFQ 4smDwnJ6RyeTL6JCKsc1q5Qh84 T45rZ8UsjVO+VNBdwAW3iXY9 rJ7lKyYeHqZ4EQqbN025OmOeiH VoXmdif0bxn5uazVm1DeJ0HPOl aiTpzPimMGY1t3AzOx76N56f IHdpZHRoPSIxNSUiIHZhbGlnbj 4anP7mBo1+CXAzeAW0fMF1xN5m WsHfTpU1WNcwL878UhWtwHGy Jgdpn7xdh2bhqNh3UuFmVEBjzl XzoVhkKXE6r1ZpVl20U1OitMpz w8YoSdu2pk66pRLsc6T0jBD4 A3FaNKVrelbygRVyaUftJN5eHZ RedmsjPDQqmY8zNEDbT6u1SmBd HxM9SKcuR8EqcmJ4VGVwaOOh UCexAVE9W12ly4J6QCZlCBZmWX H0oUL0yU6cnOgrtxtgxNSwaSyn dmTqcLwaQEpiNJhpQ799HBXx ePbiUTCrrB7pFVEluYZgcZxwAI 4wNTBpbjsnPkhBWSwgQkVSTkFS WCCNDU92VW51qJZry1Y4sEP2 E2YxSIKvoupoalqaiBQ4TICeVJ AqzF76aWIoOCoqLn5cu6R5b194 KKGwKRSyfF28Ql4atIpsSKYl mJDMqB1njvgxa2byghfdXaLeMA KpVFk5RUd1ZLUtyThaBmUvAFX1 CeQ4FXJ3dNHnxR4jvRlqyjag nX9qWfm+HYZmIlyqCEz3NkmpyP Q+SYMeAEX6iDeeRKwlLHCarC0i YQOfX8w7CyLsKlQ8TVypX7Gm RBHrztrdSr92nX6sDaPuZvU1BA iuA8HkbaI9ZAPobQGsRDonYUL1 X94bj0T3EKUoAXFeVUA8yBK1 qR6tcLjrjvkgaUJzcXeqpvCbxG vuGPbyZEnmX841YBLuyEndAoU6 UEfsQTTvQP95RQ90yIHnu1F6 rYI2P8HzVDVhxsontdgxzFN9AE ZjKOPuzT75fWFrKTrcXz9nl3H2 y924EVNcDUNkfD39Gr2jjAma UKObxXCSmP1otsine2ilivepZm ZsLBLiCAf9QMw3CSYllPlkPcYz KRW2EeM9KJE1aIUwdP8paXqb hcchvY0oJzj+TWFsZTwvdGQ+PH CoXEZ3sSykYKnlVAAplG4bMJQq H5k7NxDuCeI3SPlhN5JqTREn yhxsAz54eZ4mJuDfDzO4PFqkB0 LyifR6TVYqbNBnDGluDYL9H52o i7C9YQOzWYAkCHW1lHY3cB8g bGlnbjogbGVmdDsgdmVydGljYW rqYPxzI824JLXymIdgOl12mUZh iQuonuP7U1HeMbxpaUE+PC90 WLWnRU05dZHtbIJwc8vvwZv2Tg IiGLMgWTU3mQlbZYzqe8DyHVEk V74geEFjg2Y1SRMnnAtfoJNn LgHwgVZ4gH8vQQqndunso3sjpk shLwxmw1xvmx27kA19V67mCDqa FVFcTRRuWKDeERXeoUhgvo7q oS2tSq1+OUZmuAO9sAA0vI1hDe MpClZ9RAzpY857OnGrcUTdXfmw p7bjn3ijjQd9OhBuRMAwxoJu rKdySNE5u6QrVe52H26hQIimET JxGSYhHWVfATBagWnzgq3khD2u Ii8+IW1lx3hhzz64oU34vBR+ NUAhZQL4wKhhYYipSDSpgQ6sXW atOwV3FFJeWxVgtK07bKYlMJah Uj3aiPznwHtlIV1rOORkaawk g465BzEjb4daHAGgmLZgYRmfEI F9V88kx7W1THLfSLUsPAN1lXW3 xT1fwVugesxsjFSkqRvqwlIy yJueIJrnPMajZ874YYRxzSogJo PzaKRrL7vgmcGQIJ0rOcyqcRE+ XAXiTPP8dPkjRPbeXSDcmN5a VQXhC2u4JiMkXrR3ZSqqV9Jthc D2XWZytJOjGUUgpGNLtW8pwnin i4yicabgBoByMBOjIWx5AYo7 FVRjhAuxEkJlNUT7OzP2FPJ4vF LrrZ9vpKnuvzunkI8zGxt+RklO OjwvdGQ+AXIdDHK1qAglPPnb GMUysX5dHBOqE6x0DfRvXbS8VW nkR2ZchnI8YWIugOUwRVTmmCBT lO1jjbbcu0ikilenSdVjZKLr FUg2NIk3MYFbhZzrQyVkFOU8Zq R5XKW3kELunT4mdXrhxovmzV5w Oyc+TVJOOjwvdGQ+PHRkIHN0 hUecVYsrCSPvuA2tDXYpN5o8An DoFeX3OKpbX6OufnJ8CFPmjWDn IEKbsJTLrU6mctnmh2pedsnp RoNiFSZnXBz3TNt3RANqyVdjLx XwIZL9AxF0SDU0aGTzbZ6lnSoo jorkhZ3fSfn+NCG0WDI7PQ93 QJ14U0BrIxpavYLyrIW+PHRhYm xlIHdpZHRoPScxMDAlJyBzdHls IX6vIn3aHZEcEEWteFprlDRs OiBj (more content not included)... Normal [facility] Consent for Procedure/Surger yon 01-20-2022 Consent for Procedure/Surgery [id number]:127 Normal [facility] IntraOperative Documentson 0 01-20-2022 IntraOperative Documents [id number]:127 [facility] Consent for Treatmenton 12-31 Consent for Treatment [id number]:127 [facility] Main OR Intraoperative Recor don 01-19-2022 Main OR Intraoperative Record IntraOp Document Type FTURO Summary Primary Physician: Maritza SCOTT MD Finalized Date/Time: 01/19/22 12:12:25 Pt. Name: PAWAN BUSTILLO D.O.B./Sex: 1955 Male Med Rec #: [id number] Physician: Maritza SCOTT MD Financial #: [id number] Pt. Type: O Room/Bed: / Admit/Disch: 01/19/22 09:49:48 - Institution: Case Times FTURO Entry 1 Patient Times In Room 01/19/22 11:58:00 Out Room 01/19/22 12:12:00 Procedure Times Start 01/19/22 12:01:00 Stop 01/19/22 12:08:00 Anesthesia Times Last Modified By: Yas Ramos RN 01/19/22 12:12:21 Case Attendance FTURO Entry 1 Entry 2 Entry 3 Case Attendee Maritza SCOTT MD INTERVENTIONAL RADIOLOGY TECHNOLOGIST, Yas Ramos RN, Yas Avery Role Performed Surgeon - Primary Scrub - Primary Real Estate Site Analyst - Primary Time In 01/19/22 11:58:00 01/19/22 11:58:00 01/19/22 11:58:00 Time Out 01/19/22 12:12:00 01/19/22 12:12:00 01/19/22 12:12:00 Procedure CYSTOSCOPY LOCAL(.) CYSTOSCOPY LOCAL(.) CYSTOSCOPY LOCAL(.) Comments Last Modified By: Yas Ramos RN, RN, Yas Medina RN 01/19/22 12:12:22 01/19/22 12:12:22 01/19/22 12:12:22 Surgical Procedures FTURO Entry 1 Procedure Description Procedure CYSTOSCOPY LOCAL Modifiers . Surgeon Description CYSTOSCOPY LOCAL Primary Procedure Yes Primary Surgeon Maritza SCOTT MD Start 01/19/22 12:01:00 Stop 01/19/22 12:08:00 Anesthesia Type Local Surgical Service Urology Wound Class 2 - Clean-Contaminated Last Modified By: Yas Ramos RN 01/19/22 12:08:45 General Case Data FTURO Pre-Care Text: Classifies surgical wound, implements aseptic technique, initiates traffic control Entry 1 Case Information OR URO 1 FT Case Level None Wound Class 2 - Clean-Contaminated Specialty Urology Preop Diagnosis BPH WITH OBSTRUCTION Postop Same As Preop Yes INCOMPLETE EMPTY FREQUENCY Postop Diagnosis BPH WITH OBSTRUCTION Outcomes Met? Yes INCOMPLETE EMPTY FREQUENCY Last Modified By: Yas Ramos RN 01/19/22 11:55:22 Post-Care Text: The patient is free from signs and symptoms of infection EU IntraOp - FTURO Pre-Care Text: Implements protective measures prior to operative or invasive procedure, confirms identity before the operative or invasive procedure, verifies operative procedure, surgical site, and laterality Entry 1 EU Perioperative Protocols Procedure(s) CYSTOSCOPY LOCAL(.) Patient Identity Birthday, ID Band Verified (select at Check, Patient least 2): Participation Consents / H and P HandP, Transfusion Consent Operative Site N/A Verified Marking Verified Surgical Site Yes Laterality Verified Yes Verified Procedure Verified Yes Correct Patient Yes Position Verified Availability Equipment, Medication Time Out Maritza SCOTT MD, Verified (If Participants Yas Langley CST Applicable) Richard Cordova RN, Kimberly Y Time Out Complete 01/19/22 12:00:00 Allergies Reviewed? Yes Allergies Reviewed Self/Patient With Body Position Supine Prep Area PENIS Prep Agents Betadine Solution Skin. Condition Dry, Warm, Unable to Description UNABLE TO VISUALIZE DUE Visualize TO PATEINT PARTIALLY CLOTHED Additional None Specimens Collected Vitals - EU Blood Pressure 135/81 Pulse 78 bpm Respirations 16 br/min SPO2 EBL 0 IandO - EU Total Intake 0 mL Total Output 0 mL Outcomes Met? Yes Last Modified By: Yas Ramos RN 01/19/22 12:02:17 Post-Care Text: The patient is free from signs and symptoms of injury caused by extraneous objects Sign Out FTURO Entry 1 Before Patient Leaves OR Nurse verbally Yes Nurse verbally Yes confirms with the confirms with the team the name of team that the procedure(s) instrument, sponge, recorded and needle counts are correct (or N/A) Nurse verbally n/a Nurse verbally Yes confirms with the confirms with the team how the team whether there specimen is labeled are any equipment (including patient problems to be name), if applicable addressed Sign Out Complete 01/19/22 12:08:00 Last Modified By: Yas Ramos RN 01/19/22 12:08:44 Case Comments Finalized By: Yas Ramos RN Document Signatures Signed By: Yas Ramos RN 01/19/22 12:12 Normal [facility] Main OR Preoperative Recordo n 01-19-2022 Main OR Preoperative Record Holding Area Document Type FTURO Summary Primary Physician: Maritza SCOTT MD Finalized Date/Time: 01/19/22 11:54:46 Pt. Name: PAWAN BUSTILLO/Sex: 1955 Male Med Rec #: [id number] Physician: Maritza SCOTT MD Financial #: [id number] Pt. Type: O Room/Bed: / Admit/Disch: 01/19/22 09:49:48 - Institution: Case Times Holding FTURO Pre-Care Text: Verifies consent for planned procedure, identifies individual values and wishes concerning care, includes family members in perioperative teaching Secures patient's records' belongings, and valuables, maintains patient's dignity and privacy, and maintains patient confidentiality Entry 1 In Holding 01/19/22 11:47:00 Outcomes Met? Yes Last Modified By: Feng Coleman LPN 01/19/22 11:47:16 Post-Care Text: The patient participates in decisions affecting his or her perioperative plan of care The patient's right to privacy is maintained Surgery Checklist FTURO Entry 1 Patient Birthday, Patient Procedure History and Physical, Identification: Participation Verification: Surgical Consent, With Patient NPO after Midnight: n/a Personal Items: Glasses Complaints of Pain: No Skin Integrity Unable to Visualize Vitals - EU Blood Pressure 135/81 Pulse 78 bpm Respirations 16 br/min SPO2 RN Reviewed Yes Last Modified By: Yas Ramos RN 01/19/22 11:54:44 Finalized By: Yas Ramos RN Document Signatures Signed By: Feng Coleman LPN 01/19/22 11:51 Yas Ramos RN 01/19/22 11:54 Normal [facility] Operative Reporton 2 Operative Report Patient: FARIEDH BUSTILLO Age: 66 years Sex: Male : 1955 Associated Diagnoses: None Author: Maritza SCOTT MD Procedure Operative Information Pre-Op Dx: BPH w/ LUTS - N40.1, Incomplete Bladder Emptying - R39.14. Post-Op Dx: Same. Anesthesia Type: Local. Procedure: Local Cystoscopy. Complications: None. Risks/Benefits/Informed Consent: Surgical risks, benefits, details of the procedure have been explained to the patient, Full informed consent has been obtained. Intraoperative Information Prepped: Patient is brought back to the endoscopy suite, Patient is placed in supine position, Patient prepped in the usual fashion with Betadine solution, 2% Xylocaine Jelly is placed per Urethra, After waiting several minutes the Cystoscope is introduced. The Urethra is: Normal. The Prostatic Urethra is: Unobstructed, Short with bilobar hypertrophy and very friable.. The Bladder is: Trabeculated (Mild (1), No bladder tumors. Mild to moderate cystitis.). The ureteral orifices: Show efflux of clear urine. Devices Implanted: None. Removal: Cystoscope is removed, The patient tolerated it well. Postoperative Information Discharge: Patient is discharged home with antibiotic coverage, Follow up arranged. He will take doxycycline 100 mg twice daily for 3 more weeks. He will continue his twice daily Flomax. He will do timed voids every 3 hours. He will also focus on emptying well. Follow-up will be in 3 months with a bladder scan PVR check. Normal [facility] Comment on above: Result Comment: Georgina dunlapally Signed By: TSERING BARRY, Maritza Balderas\.br\Date and Time Signed: 01/19/22 12:11 EDT Progress Note-Physicianon Progress Note-Physician Patient: PAWAN BUSTILLO Age: 66 years Sex: Male : 1955 Associated Diagnoses: None Author: TSERING BARRY, Maritza Balderas Subjective X this gentleman has significant urinary frequency and incomplete emptying. He had prostatitis recently. Urodynamics showed high postvoid residual low average flow rate but also low bladder pressure. Cystoscopy revealed a friable prostate that was short and not obstructing. Bladder showed cystitis. Review of Systems ROS reviewed as documented in chart Health Status Allergies: Allergic Reactions (Selected) No Known Medication Allergies Current medications: Home Medications (10) Active acyclovir 400 mg Tab , Oral, BID aspirin 81 mg oral capsule , Oral, q4hr erythromycin ophthalmic 0.5% ointment 0.5 in, Eye-Both, QID Flomax 0.4 mg Cap 0.4 mg = 1 cap(s), Oral, BID gatifloxacin 0.5% ophthalmic solution , BID lisinopril 10 mg Tab , Oral, Daily prasugrel 10 mg Tab 10 mg = 1 tab(s), Oral, Daily simvastatin 40 mg Tab , Oral, Once a day (at bedtime) Trelegy Ellipta 100 mcg-62.5 mcg-25 mcg inhalation powder , Inhalation, Daily Ventolin HFA 90 mcg/inh Aerosol , Inhalation, q6hr Problem list: All Problems Arthritis / SNOMED CT 4905984 / Confirmed COPD (chronic obstructive pulmonary disease) / SNOMED CT 26981399 / Confirmed Emphysema of lung / SNOMED CT 847569582 / Confirmed Glaucoma / SNOMED CT 71307959 / Confirmed Heart attack / SNOMED CT 65892387 / Confirmed High cholesterol / SNOMED CT 57110696 / Confirmed Smoker / SNOMED CT 101946140 / Confirmed Added secondary to documentation in Social History. Incomplete bladder emptying / SNOMED CT 043165021 / Confirmed BPH with urinary obstruction / SNOMED CT 6970431959 / Confirmed Poor urinary stream / SNOMED CT 144128452 / Confirmed Feeling of incomplete bladder emptying / SNOMED CT 009144599 / Confirmed Urgency of urination / SNOMED CT 800134278 / Confirmed Urinary frequency / SNOMED CT 831483924 / Confirmed Prostatitis / SNOMED CT 43662106 / Confirmed Histories Past Medical History: No active or resolved past medical history items have been selected or recorded. Family History: Hypertension Father Heart disease Father Arthritis Father Mother Diabetes clinic Father High cholesterol Father Procedure history: Hernia ([id number]). Social History Social & Psychosocial Habits Tobacco 12/21/2021 Tobacco Use: 10 or more cigarettes (1/ Type: Cigarettes Smoking Cessation Yes . Objective He is resting comfortably in bed. He is in no acute distress. Abdomen is soft and nontender. No masses are palpable. External genitalia are normal. Impression and Plan Impression: #1. This gentleman has BPH with LUTS refractory to Flomax. 2. He has partially treated prostatitis. Plan: #1. He will continue his twice daily Flomax. 2. We will start doxycycline 100 mg twice daily for 3 weeks. 3. He will do timed voids every 3 hours and focus on emptying well. 4. He will follow-up in 3 months and we will check a bladder scan PVR. If his PVR is still greater than 300 we then will institute clean intermittent cath once a day. Normal [facility] Comment on above: Result Comment: Elec tronically Signed By: TSERING BARRY, Maritza Balderas\.br\Date and Time Signed: 01/19/22 12:16 EDT Ambulatory Visit Summaryon 0 12-21-2021 Ambulatory Visit Summary KENY PAWAN Dale :1955 Visit Date:12/21/2021 Ambulatory Visit Instructions Your Diagnosis BPH with urinary obstruction Urinary frequency Prostatitis Tests Performed Urnls Dip Stick Auto w/o Microscopy POC 98814 Your Care Team Attending Physician - TSERING BARRY, Maritza Balderas Primary Care Physician - KEATON RICO MD This Is Your Medications List doxycycline (doxycycline hyclate 100 mg Tab) tamsulosin (Flomax 0.4 mg Cap) Contact prescribing physician if questions or concerns acyclovir (acyclovir 400 mg Tab) albuterol (Ventolin HFA 90 mcg/inh Aerosol) aspirin (aspirin 81 mg oral capsule) erythromycin ophthalmic (erythromycin ophthalmic 0.5% ointment) fluticasone/umeclidinium/v ilanterol (Trelegy Ellipta 100 mcg-62.5 mcg-25 mcg inhalation powder) gatifloxacin ophthalmic (gatifloxacin 0.5% ophthalmic solution) lisinopril (lisinopril 10 mg Tab) prasugrel (prasugrel 10 mg Tab) simvastatin (simvastatin 40 mg Tab) Procedures Performed Hernia. Discharge Vitals Heart Rate (Peripheral) 79 Blood Pressure 141/95 Height 180 cm Height 180.0 cm Weight 85 kg Weight 85.0 kg BMI 26.23 What to do next You Need to Schedule the Following Appointments Follow Up with TSERING BARRY, XENIA Quinn When: Where: [facility] [address], [place] [address]- Medications What How Much When Instructions New doxycycline (doxycycline hyclate 100 mg Tab) 1 Tablets By Mouth 2 times a day Duration: 3 Weeks Pickup at [facility]/pharmacy #[id number] Unchanged tamsulosin (Flomax 0.4 mg Cap) 1 Capsules By Mouth 2 times a day Unchanged acyclovir (acyclovir 400 mg Tab) By Mouth 2 times a day Contact prescribing physician if questions or concerns Unchanged albuterol (Ventolin HFA 90 mcg/ inh Aerosol) Inhalation Every 6 hours Contact prescribing physician if questions or concerns Unchanged aspirin (aspirin 81 mg oral capsule) By Mouth Every 4 hours Contact prescribing physician if questions or concerns Unchanged erythromycin ophthalmic (erythromycin ophthalmic 0.5% ointment) 0.5 Inch Both eyes 4 times a day Contact prescribing physician if questions or concerns Unchanged fluticasone/ umeclidinium/ vilanterol (Trelegy Ellipta 100 mcg-62.5 mcg-25 mcg inhalation powder) Inhalation Every day Contact prescribing physician if questions or concerns Unchanged gatifloxacin ophthalmic (gatifloxacin 0.5% ophthalmic solution) 2 times a day Contact prescribing physician if questions or concerns Unchanged lisinopril (lisinopril 10 mg Tab) By Mouth Every day Contact prescribing physician if questions or concerns Unchanged prasugrel (prasugrel 10 mg Tab) 1 Tablets By Mouth Every day Contact prescribing physician if questions or concerns Unchanged simvastatin (simvastatin 40 mg Tab) By Mouth Once a day (at bedtime) Contact prescribing physician if questions or concerns Pharmacy Information [facility]/pharmacy #[id number]: [address] [place], [place] [id number] [phone] 1953 Test Results Urnls Dip Stick Auto w/o Microscopy POC 93047 (12/21/2021) Bilirubin Urine Dipstick - Negative Blood Urine Dipstick - Negative Glucose Urine Dipstick - Negative Ketones Urine Dipstick - Negative Leukocytes Urine Dipstick - Trace Nitrite Urine Dipstick - Negative Protein Urine Dipstick - Negative Specific [place] Urine Dipstick - 1.010 Urine Appearance Urine Dipstick - Clear Urine Color Urine Dipstick - Yellow Urobilinogen Urine Dipstick - Normal 0.2-1 EU/dl pH Urine Dipstick - 7 Medications and Immunizations Administered Not Given influenza virus vaccine, inactivated, Temporary contraindication - reschedule Allergies No Known Medication Allergies Problems Ongoing - Any problem that you are currently receiving treatment for. Arthritis BPH with urinary obstruction COPD (chronic obstructive pulmonary disease) Emphysema of lung Feeling of incomplete bladder emptying Glaucoma Heart attack High cholesterol Incomplete bladder emptying Poor urinary stream Prostatitis Smoker Urgency of urination Urinary frequency Education Materials Benign Prostatic Hyperplasia Benign prostatic hyperplasia (BPH) is an enlarged prostate gland that is caused by the normal aging process and not by cancer. The prostate is a walnut-sized gland that is involved in the production of semen. It is located in front of the rectum and below the bladder. The bladder stores urine and the urethra is the tube that carries the urine out of the body. The prostate may get bigger as a man gets older. An enlarged prostate can press on the urethra. This can make it harder to pass urine. The build-up of urine in the bladder can cause infection. Back pressure and infection may progress to bladder damage and kidney (renal) failure. What are the causes? This condition is part of a normal aging process. However, not all men develop problems from this condition. If the prostate enlarges away f (more content not included)... Normal [facility] Patient Educationon 12-22-19 Patient Education Urology Benign Prostatic Hyperplasia Benign prostatic hyperplasia (BPH) is an enlarged prostate gland that is caused by the normal aging process and not by cancer. The prostate is a walnut-sized gland that is involved in the production of semen. It is located in front of the rectum and below the bladder. The bladder stores urine and the urethra is the tube that carries the urine out of the body. The prostate may get bigger as a man gets older. An enlarged prostate can press on the urethra. This can make it harder to pass urine. The build-up of urine in the bladder can cause infection. Back pressure and infection may progress to bladder damage and kidney (renal) failure. What are the causes? This condition is part of a normal aging process. However, not all men develop problems from this condition. If the prostate enlarges away from the urethra, urine flow will not be blocked. If it enlarges toward the urethra and compresses it, there will be problems passing urine. What increases the risk? This condition is more likely to develop in men over the age of 50 years. What are the signs or symptoms? Symptoms of this condition include: ? Getting up often during the night to urinate. ? Needing to urinate frequently during the day. ? Difficulty starting urine flow. ? Decrease in size and strength of your urine stream. ? Leaking (dribbling) after urinating. ? Inability to pass urine. This needs immediate treatment. ? Inability to completely empty your bladder. ? Pain when you pass urine. This is more common if there is also an infection. ? Urinary tract infection (UTI). How is this diagnosed? This condition is diagnosed based on your medical history, a physical exam, and your symptoms. Tests will also be done, such as: ? A post-void bladder scan. This measures any amount of urine that may remain in your bladder after you finish urinating. ? A digital rectal exam. In a rectal exam, your health care provider checks your prostate by putting a lubricated, gloved finger into your rectum to feel the back of your prostate gland. This exam detects the size of your gland and any abnormal lumps or growths. ? An exam of your urine (urinalysis). ? A prostate specific antigen (PSA) screening. This is a blood test used to screen for prostate cancer. ? An ultrasound. This test uses sound waves to electronically produce a picture of your prostate gland. Your health care provider may refer you to a specialist in kidney and prostate diseases (urologist). How is this treated? Once symptoms begin, your health care provider will monitor your condition (active surveillance or watchful waiting). Treatment for this condition will depend on the severity of your condition. Treatment may include: ? Observation and yearly exams. This may be the only treatment needed if your condition and symptoms are mild. ? Medicines to relieve your symptoms, including: ? Medicines to shrink the prostate. ? Medicines to relax the muscle of the prostate. ? Surgery in severe cases. Surgery may include: ? Prostatectomy. In this procedure, the prostate tissue is removed completely through an open incision or with a laparoscope or robotics. ? Transurethral resection of the prostate (TURP). In this procedure, a tool is inserted through the opening at the tip of the penis (urethra). It is used to cut away tissue of the inner core of the prostate. The pieces are removed through the same opening of the penis. This removes the blockage. ? Transurethral incision (TUIP). In this procedure, small cuts are made in the prostate. This lessens the prostate's pressure on the urethra. ? Transurethral microwave thermotherapy (TUMT). This procedure uses microwaves to create heat. The heat destroys and removes a small amount of prostate tissue. ? Transurethral needle ablation (TUNA). This procedure uses radio frequencies to destroy and remove a small amount of prostate tissue. ? Interstitial laser coagulation (ILC). This procedure uses a laser to destroy and remove a small amount of prostate tissue. ? Transurethral electrovaporization (TUVP). This procedure uses electrodes to destroy and remove a small amount of prostate tissue. ? Prostatic urethral lift. This procedure inserts an implant to push the lobes of the prostate away from the urethra. Follow these instructions at home: ? Take [id number]-[id number] and prescription medicines only as told by your health care provider. ? Monitor your symptoms for any changes. Contact your health care provider with any changes. ? Avoid drinking large amounts of liquid before going to bed or out in public. ? Avoid or reduce how much caffeine or alcohol you drink. ? Give yourself time when you urinate. ? Keep all follow-up visits as told by your health care provider. This is important. Contact a health care provider if: ? You have unexplained back pain. ? Your symptoms do not get better with treatment. ? You d (more content not included)... Normal [facility] Urology Office/Clinic Noteon 12-21-2021 Urology Office/Clinic Note Chief Complaint pt is here for 6 mo f/u HPI Staff pt is here for 6mo f/u with BPH w/urinary obstruction. pt is on Flomax 0.4mg BID, last PSA drawn 04/20/21 was 1.3 and is being monitored. pt is having some frequency, he has the urge, but it's only coming out in small amounts and he feels he is not emptying his bladder. PVR-34ml Dysuria: _denies Incomplete bladder emptying: _sometimes Hematuria: _denies visibly Frequency: _yes, but it's only a small amount Urgency: _denies Nocturia: _denies Stream: _stop&go Leaking: _denies Post void dripping: _yes Wearing pads/ Depends: _denies Urge incontinence: _denies Stress incontinence: _denies Incontinence without Sensory Awareness: _denies Abdominal pain: _denies Flank pain: _denies Sexual complaints: _ History of Present Illness I have reviewed and verified the staff HPI to be accurate for this encounter. Review of Systems ROS - Provider Constitutional: denies weight loss, denies hot flashes. Eyes: denies eye problems. Gastrointestinal: denies nausea, denies vomiting. Cardiovascular: denies chest pain or angina. Integumentary: no dryness Musculoskeletal: denies musculoskeletal symptoms. ENMT: denies otolaryngeal symptoms. Respiratory: no shortness of breath. Heme/Lymph: denies easy bleeding tendency, denies easy bruising tendency. Psychiatric: no confusion, no anxiety. Genitourinary: denies dysuria, denies hematuria, denies discharge, denies urinary frequency, denies urinary hesitancy, denies nocturia, denies incontinence, denies genital sores, denies decreased libido, and denies erectile dysfunction. Physical Exam Vitals & Measurements HR: 79(Peripheral) BP: 141/95 HT: 180 cm HT: 180.0 cm WT: 85 kg WT: 85.0 kg BMI: 26.23 General Appearance: alert, no distress, well nourished, well developed male. Genitourinary: normal scrotum, normal testes, normal urethra, normal epididymis, normal vas deferens/spermatic cord. Flank Pain: none. Bladder: nonpalpable. Assessment/Plan 1. BPH with urinary obstruction (N40.1: Benign prostatic hyperplasia with lower urinary tract symptoms) Last PSA drawn 04/20/21 was 1.3ng/mL and is being monitored by PCP- no other PSAs to look over. Pt is on Flomax 0.4mg BID and is having worsening symptoms now. . Currently c/o stop and go stream with post void dribbling. gets occ urgency and then can only void a small amount. 2. Urinary frequency (R35.0: Frequency of micturition) severe at times. 3. Prostatitis (N41.9: Inflammatory disease of prostate, unspecified) Pt is having some frequency, he has the urge, but it's only coming out in small amounts and he feels he is not emptying his bladder. PVR-34ml. UA today shows trace leukocytes, showing signs of infection. Will start on abx therapy- Doxy 100mg bid for 3 weeks, sent to [facility] in [place]. Will schedule and Cysto and urodynamics. The risks and benefits for cystoscopy have been discussed. The risks include bleeding, infection, and irritation of the bladder and urinary channel, among others. The patient, after being informed of procedural details and after questions have been answered, wishes to proceed. Full informed consent has been obtained. Will order Local anesthesia. Follow-up With When Contact Information TSERING BARRY, Maritza Balderas, URL [facility] [address], [place] [address]- Additional Instructions: schedule Cysto. Patient Education Benign Prostatic Hyperplasia Lacey Maloney, personally scribed for Dr. Scott on 12/21/2021 11:34:14. . Documentation recorded by the scribeLacey, accurately reflects the services(s) I performed and decisions made by me. Authenticated by Dr. Scott on 12/21/2021 11:37:07. Problem List/Past Medical History Ongoing Arthritis BPH with urinary obstruction COPD (chronic obstructive pulmonary disease) Emphysema of lung Feeling of incomplete bladder emptying Glaucoma Heart attack High cholesterol Incomplete bladder emptying Poor urinary stream Prostatitis Smoker Urgency of urination Urinary frequency Historical No qualifying data Procedure/Surgical History Hernia. Medications acyclovir 400 mg Tab, Oral, BID aspirin 81 mg oral capsule, Oral, q4hr erythromycin ophthalmic 0.5% ointment, 0.5 in, Eye-Both, QID, Not taking Flomax 0.4 mg Cap, 0.4 mg= 1 cap(s), Oral, BID, 3 refills gatifloxacin 0.5% ophthalmic solution, BID, Not taking lisinopril 10 mg Tab, Oral, Daily prasugrel 10 mg Tab, 10 mg= 1 tab(s), Oral, Daily simvastatin 40 mg Tab, Oral, Once a day (at bedtime) Trelegy Ellipta 100 mcg-62.5 mcg-25 mcg inhalation powder, Inhalation, Daily, Not taking Ventolin HFA 90 mcg/inh Aerosol, Inhalation, q6hr Allergies No Known Medication Allergies Social History Tobacco 10 or more cigarettes (1/2 pack or more)/day in last 30 days Tobacco Use:. Cigarettes, Yes, 12/21/2021 Family History Arthritis: Mother and (more content not included)... Normal [facility] Comment on above: Result Comment: Elec tronically Signed By: Claire Osei\.br\Date and Time Signed: 12/21/21 11:[address] CHEST WO CONon 12-14-2021 CT CHEST WO CON EXAMINATION: CT CHES T WO CON HISTORY: Lung field abnormal ; pulmonary nodules, chronic shortness of breath, COPD COMPARISON: CT chest 09/09/2021 TECHNIQUE: Axial, Coronal, and Sagittal images were created without the administration of IV contrast material. Dose reduction techniques were achieved by using automated exposure control and/or adjustment of mA and/or kV according to patient size and/or use of iterative reconstruction technique. FINDINGS: LUNGS: Marked emphysematous changes and mild bronchiectasis with a few areas of mild mucous plugging. Clearing of previously seen left upper lobe infiltrate/opacity. Slight interval decrease in size of the left upper lobe/apical geographic shaped opacity which appears to have intermixed areas of air, likely atelectasis or consolidation/infiltrate, 2.7 x 1.2 cm. PLEURA: No mass, effusion, or pneumothorax. VASCULATURE: No abnormality. ANDRIA: No mass or adenopathy. MEDIASTINUM: No mass or adenopathy. CARDIAC: Atherosclerotic coronary artery disease. AORTA: No aneurysm or dissection. CHEST WALL: No mass or axillary adenopathy. BONES: Stable T7 moderate compression fracture. LIMITED ABDOMEN: 2 mm nonobstructing stone within right kidney. Limited images of the upper abdomen. OTHER: Negative. IMPRESSION: 1. Slight improvement of left upper lobe indeterminate opacity, likely infiltrate or consolidation. 2. No new findings. 3. Marked emphysematous changes. 4. Follow-up imaging in 6 months is recommended to document stability versus change. Electronically authenticated by: MUNIR GARCIA Date: 2021-12-14 11:09 Normal [facility] Cardiovascular Lab Reporton 06-06-2019 Cardiovascular Lab Report [facility] Patient Name: Pawan Bustillo [facility] MR #: [id number] Physician: Chavo Santana, Department of M.D. Medicine Service Date: 06/05/2019 Division of Birthdate: 1955 Cardiology Room #: [facility] Cardiovascular Services [place] [address] Cardiovascular Laboratory Report IMPRESSIONS: 1. Patent stent in the mid left anterior descending coronary artery. 2. Srzp-qq-voeighut disease of the proximal left anterior descending and mid to distal left circumflex coronary arteries. 3. Severe disease of a small nondominant right coronary artery. 4. Extensive coronary calcification and calcification in the right iliac arterial system. RECOMMENDATIONS: 1. Aggressive cardiovascular risk factor modification. 2. Optimization of medical management; aspirin, high-intensity statin therapy, beta angelica, and angiotensin-converting enzyme inhibitor are indicated. 3. Further investigations and management for peripheral arterial disease as clinically warranted. 4. Follow up with Dr. Leroy or Dr. Santana in the next 2-3 months. 5. Follow up with his family physician as scheduled. PROCEDURES: Limited femoral angiography: Bilateral selective coronary angiography, placement of a 6-Kyrgyz MynxGrip closure device. METHODS: After risks, benefits, and alternatives were explained, written informed consent was obtained. The patient was prepped and draped in usual sterile fashion over the right groin. Using 1% lidocaine solution, local infiltration anesthesia was achieved. Using a modified Seldinger technique, micropuncture kit, access of the right common femoral artery was obtained. A 6-Kyrgyz 11 cm sheath was inserted without difficulty. Baseline femoral angiography was performed. Bilateral selective coronary angiography was performed using JL4 and JR4 catheters. After reviewing the images, it was elected to conclude the procedure. A 6-Kyrgyz MynxGrip closure device was inserted however deployment failed; therefore, manual pressure was held for hemostasis. Overall, the patient tolerated the procedure well. There were no overt complications. He was to be transferred to the holding area in stable condition. FINDINGS: Hemodynamics: AO 93/61. LEFT VENTRICULOGRAPHY: This is normal by stress testing. CORONARY ARTERIES: Left main coronary artery: This arises from the left coronary cusp. It bifurcates into the left anterior descending and left circumflex coronary artery and shows calcific plaque. Left anterior descending coronary artery: This shows a 30% to 40% proximal stenosis followed by a patent stent in the midportion of the vessel on mild plaque and luminal irregularities in the distal portion. Left circumflex coronary artery: This is a dominant vessel giving rise to the posterior descending and posterolateral branches. It shows a 40% mid vessel stenosis and a 40% to 50% distal stenosis. The branch showed mild diffuse calcific plaque. Right coronary artery: This is a small nondominant vessel with severe calcific plaque and an 85% to 90% stenosis proximally. Limited femoral angiography shows calcific plaque. INDICATIONS: Shortness of breath, abnormal stress test. Electronically Signed by: Chavo Santana M.D. 06/09/2019 11:50 A Chavo Santana M.D. Date Dict: 06/05/2019/01:10 P/Chavo Santana M.D. Date Trans: 06/06/2019 03:46 A/natalee [id number] cc: Sancho Leroy M.D. [address] [place] [address] Vital Signs Date Time Vital Sign Value Performing Clinician Facility 01-17-2024 12:51-0400 Body height 180.34 cm MD Keaton Rico Work Phone: [facility] 01-17-2024 12:51-0400 Body mass index (BMI) [Ratio] 25.8 kg/m2 MD Keaton Rico Work Phone: [facility] 01-17-2024 12:51-0400 Body temperature 98.8 [degF] MD Keaton Rico Work Phone: [facility] 01-17-2024 12:51-0400 Body weight 84 kg MD Keaton Rico Work Phone: [facility] 01-17-2024 12:51-0400 Diastolic blood pressure 62 mm[Hg] MD Keaton Rico Work Phone: [facility] 01-17-2024 12:51-0400 Heart rate 66 /min MD Keaton Rico Work Phone: [facility] 01-17-2024 12:51-0400 Respiratory rate 16 /min MD Keaton Rico Work Phone: [facility] 01-17-2024 12:51-0400 SaO2% (BldA) [Mass fraction] 98 % MD Keaton Rico Work Phone: [facility] 01-17-2024 12:51-0400 Systolic blood pressure 110 mm[Hg] MD Keaton Rico Work Phone: [facility] 09-17-2023 08:00-0500 Body temperature 99.9 [degF] MD Keaton Rico Work Phone: [facility] 09-17-2023 08:00-0500 Diastolic blood pressure 76 mm[Hg] MD Keaton Rico Work Phone: [facility] 09-17-2023 08:00-0500 Heart rate 94 /min MD Keaton Rico Work Phone: [facility] 09-17-2023 08:00-0500 Respiratory rate 20 /min MD Keaton Rico Work Phone: [facility] 09-17-2023 08:00-0500 SaO2% (BldA) [Mass fraction] 88 % MD Keaton Rico Work Phone: [facility] 09-17-2023 08:00-0500 Systolic blood pressure 145 mm[Hg] MD Keaton Rico Work Phone: [facility] 09-17-2023 07:26-0500 Inhaled oxygen flow rate 1 L/min MD Keaton Rico Work Phone: [facility] 09-17-2023 06:00-0500 Body weight 84.5 kg MD Keaton Rico Work Phone: [facility] 09-15-2023 15:35-0500 Body height 180.34 cm MD Keaton Rico Work Phone: [facility] 09-12-2023 12:00-0500 Body height 177.8 cm Tom Schroeder Other [employer] Other 09-12-2023 12:00-0500 Body mass index (BMI) [Ratio] 27.12 kg/m2 Tom Schroeder Other [employer] Other 09-12-2023 12:00-0500 Body temperature 98.3 [degF] Tmo Schroeder Other [employer] Other 09-12-2023 12:00-0500 Body weight 85.73 kg Tom Schroeder Other [employer] Other 09-12-2023 12:00-0500 Diastolic blood pressure 58 mm[Hg] Tom Schroeder Other [employer] Other 09-12-2023 12:00-0500 SaO2% (BldA) [Mass fraction] 92 % Tom Schroeder Other [employer] Other 09-12-2023 12:00-0500 Systolic blood pressure 11 mm[Hg] Tom Schroeder Other [employer] Other 05-18-2023 18:15-0400 Diastolic blood pressure 62 mm[Hg] MD Keaton Rico Work Phone: [facility] 05-18-2023 18:15-0400 Heart rate 70 /min MD Keaton Rico Work Phone: [facility] 05-18-2023 18:15-0400 Respiratory rate 16 /min MD Keaton Rico Work Phone: [facility] 05-18-2023 18:15-0400 SaO2% (BldA) [Mass fraction] 91 % MD Keaton Rico Work Phone: [facility] 05-18-2023 18:15-0400 Systolic blood pressure 110 mm[Hg] MD Keaton Rico Work Phone: [facility] 05-18-2023 12:27-0400 Inhaled oxygen flow rate 3 L/min MD Keaton Rico Work Phone: [facility] 05-18-2023 08:04-0400 Body height 182.88 cm MD Keaton Rico Work Phone: [facility] 05-18-2023 08:04-0400 Body weight 86.18 kg MD Keaton Rico Work Phone: [facility] 05-16-2023 10:15-0400 Body height 177.8 cm Tom Schroeder Other [employer] Other 05-16-2023 10:15-0400 Body mass index (BMI) [Ratio] 27.12 kg/m2 Tom Schroeder Other [employer] Other 05-16-2023 10:15-0400 Body temperature 97.8 [degF] Tom Schroeder Other [employer] Other 05-16-2023 10:15-0400 Body weight 85.73 kg Tom Schroeder Other [employer] Other 05-16-2023 10:15-0400 Diastolic blood pressure 68 mm[Hg] Tom Hammrer Other [employer] Other 05-16-2023 10:15-0400 SaO2% (BldA) [Mass fraction] 96 % Tom Hammrer Other [employer] Other 05-16-2023 10:15-0400 Systolic blood pressure 118 mm[Hg] Tom Hammrer Other [employer] Other 04-26-2023 11:45-0400 Body height 177.8 cm Madie Lopezsergo Other [employer] Other 04-26-2023 11:45-0400 Body mass index (BMI) [Ratio] 27.12 kg/m2 Madie Lopezsergo Other [employer] Other 04-26-2023 11:45-0400 Body temperature 97 [degF] Madie Lopezbethioana Other [employer] Other 04-26-2023 11:45-0400 Body weight 85.73 kg Madie Lopezsergo Other [employer] Other 04-26-2023 11:45-0400 Diastolic blood pressure 60 mm[Hg] Madie Lopezsergo Other [employer] Other 04-26-2023 11:45-0400 SaO2% (BldA) [Mass fraction] 97 % Madie Lopezsergo Other [employer] Other 04-26-2023 11:45-0400 Systolic blood pressure 120 mm[Hg] Madie Honeycutt Other [employer] Other 12-23-2022 15:30-0400 Body height 177.8 cm Keaton Rico Other [employer] Other 12-23-2022 15:30-0400 Body mass index (BMI) [Ratio] 27.12 kg/m2 Keaton Rico Other [employer] Other 12-23-2022 15:30-0400 Body temperature 100 [degF] Keaton Rico Other [employer] Other 12-23-2022 15:30-0400 Body weight 85.73 kg Keaton Rico Other [employer] Other 12-23-2022 15:30-0400 Diastolic blood pressure 82 mm[Hg] Keaton Rico Other [employer] Other 12-23-2022 15:30-0400 SaO2% (BldA) [Mass fraction] 97 % Keaton Rico Other [employer] Other 12-23-2022 15:30-0400 Systolic blood pressure 152 mm[Hg] Keaton Rico Other [employer] Other 11-09-2022 11:15-0400 Body height 177.8 cm Keaton Rico Other [employer] Other 11-09-2022 11:15-0400 Body mass index (BMI) [Ratio] 26.54 kg/m2 Keaton Rico Other [employer] Other 11-09-2022 11:15-0400 Body weight 83.92 kg Keaton Rico Other [employer] Other 11-09-2022 11:15-0400 Diastolic blood pressure 76 mm[Hg] Keaton Rico Other [employer] Other 11-09-2022 11:15-0400 SaO2% (BldA) [Mass fraction] 97 % Keaton Rico Other [employer] Other 11-09-2022 11:15-0400 Systolic blood pressure 120 mm[Hg] Keaton Rico Other [employer] Other 04-19-2022 09:56-0400 Respiratory rate 16 /min Maritza SCOTT [facility] 05-11-2021 10:00-0400 Body height 180.34 cm Tom Schroeder Other [employer] Other 05-11-2021 10:00-0400 Body mass index (BMI) [Ratio] 25.8 kg/m2 Tom Schroeder Other [employer] Other 05-11-2021 10:00-0400 Body temperature 98.9 [degF] Tom Schroeder Other [employer] Other 05-11-2021 10:00-0400 Body weight 83.92 kg Tom Schroeder Other [employer] Other 05-11-2021 10:00-0400 Diastolic blood pressure 72 mm[Hg] Tom Schroeder Other [employer] Other 05-11-2021 10:00-0400 SaO2% (BldA) [Mass fraction] 96 % Tom Schroeder Other [facility] [employer] Other 05-11-2021 10:00-0400 Systolic blood pressure 120 mm[Hg] Tom Schroeder Other [facility] [employer] Other Encounters Encounter Date Encounter Type Care Provider Facility Start: 03-09-2024 End: 03-09-2024 [facility] Start: 01-17-2024 End: 01-17-2024 ambulatory MD Keaton Rico Work Phone: [facility] Work Phone: Start: 01-17-2024 End: 01-17-2024 Patient encounter procedure MD Keaton Rico Work Phone: [facility] Work Phone: Start: 10-20-2023 End: 10-20-2023 Patient encounter procedure MD Keaton Rico Work Phone: [facility] Work Phone: Start: 09-17-2023 Non-patient / Non-visit MD Bridgette Rico Work Phone: [facility] Pulmonary Disease Work Phone: Start: 09-14-2023 Non-patient / Non-visit MD Bridgette Rico Work Phone: [facility] Work Phone: Start: 09-14-2023 End: 09-17-2023 Evaluation and management of inpatient MD Keaton Rico Work Phone: [facility] Work Phone: Start: 09-12-2023 Office outpatient vi sit 25 minutes Tom Schroeder [facility] Start: 09-12-2023 End: 09-12-2023 Patient encounter procedure MD Keaton Rico Work Phone: [facility]-Ultrasound [facility] Start: 09-12-2023 End: 09-12-2023 ambulatory MD Keaton Rico Work Phone: [facility] [employer] Other Start: 09-09-2023 End: 09-09-2023 [facility] Start: 06-13-2023 End: 06-13-2023 ambulatory Keaton Rico Other [employer] Other Start: 06-13-2023 Telephone encounter Keaton Rico [facility] Start: 05-18-2023 End: 05-18-2023 Admission to same day surgery center MD Keaton Rico Work Phone: [facility]-Interventional Radiology Work Phone: Start: 05-18-2023 End: 05-18-2023 ambulatory MD Keaton Rico Work Phone: [facility] Work Phone: Start: 05-16-2023 End: 05-16-2023 ambulatory Tom Schroeder Other [facility] [employer] Other Start: 05-16-2023 Office outpatient vi sit 25 minutes Tom Schroeder [facility] V[facility] Surgery Start: 05-02-2023 End: 05-02-2023 Patient encounter procedure MD Keaton Rico Work Phone: [facility]-CT Scan [facility] [place] Work Phone: Start: 05-02-2023 End: 05-02-2023 ambulatory Madie Honeycutt Facility:[facility] Start: 04-26-2023 End: 04-26-2023 ambulatory Madie Honeycutt Other [facility] [employer] Other Start: 04-26-2023 Patient encounter procedure Madie Honeycutt [facility] Vascular Surgery Start: 02-14-2023 End: 02-14-2023 ambulatory Keaton Rico Other [employer] Other Start: 02-14-2023 Telephone encounter Keaton Rico [facility] Start: 12-23-2022 End: 12-23-2022 ambulatory Keaton Rico Other [employer] Other Start: 12-23-2022 Office outpatient vi sit 15 minutes Keaton Rico [facility] Start: 11-12-2022 End: 11-12-2022 ambulatory Keaton Rico Other [employer] Other Start: 11-12-2022 Telephone encounter Keaton Rico [facility] Start: 11-09-2022 End: 11-09-2022 ambulatory Keaton Rico Other [employer] Other Start: 11-09-2022 Office outpatient vi sit 15 minutes Keaton Rico [facility] Start: 11-05-2022 [facility] Start: 11-01-2022 End: 11-02-[address] KEATON RICO Facility:[facility] Start: 11-01-2022 End: 11-02-2022 Encounter for other preprocedural examination DR KEATON RICO Facility: Start: 10-29-2022 End: 10-29-2022 ambulatory Keaton Rico Other [employer] Other Start: 10-29-2022 Telephone encounter Keaton Rico [facility] Start: 10-18-2022 End: 10-19-2022 ambulatory Maritza SCOTT Facility:[facility] Start: 10-18-2022 End: 10-18-2022 Patient encounter procedure Maritza SCOTT [facility] Start: 09-28-2022 End: 09-29-[address] DOCTOR MOORE Facility:[facility] Start: 06-16-2022 End: 06-17-[address] KEATON RICO Facility: Start: 04-19-2022 End: 04-20-2022 ambulatory Maritza Andrey TSERING Facility:[facility] Start: 04-19-2022 End: 04-19-2022 Patient encounter procedure Maritza SCOTT [facility] Start: 01-19-2022 End: 01-20-2022 ambulatory Maritza Andrey TSERING [facility] Start: 01-19-2022 End: 01-19-2022 Patient encounter procedure Maritza SCOTT [facility] Start: 12-21-2021 End: 12-22-2021 ambulatory Maritza Balderas TSERING Facility:[facility] Start: 12-14-2021 End: 12-15-[address] KEATON RICO Facility: Start: 05-14-2021 Telephone encounter Tom Elda [facility] Vascular Surgery Start: 05-11-2021 [facility] visit new patient Tom Pierre er [facility] V[facility] Surgery Start: 06-05-2019 End: 06-06-2019 Patient encounter procedure EHAB A SKY Facility:[facility] Procedures Date Procedure Procedure Detail Performing Clinician Start: 01-17-2024 Ankle brachial press ure index MD Keaton Rico Work Phone: Start: 09-17-2023 Plain chest X-ray MD Ellis Rico Work Phone: Start: 09-16-2023 Angiography MD Keaton Rico Work Phone: Start: 09-15-2023 Angiography MD Keaton Rico Work Phone: Start: 09-15-2023 Angiography MD Keaton Rico Work Phone: Start: 09-14-2023 Antibody screen Madie Tangela Comment on above: Result Comment: PERF ORMED BY: [facility] [address] [place] [address] PATHOLOGIST FLIGHT TEACHER JOLIE MASON M.D. Start: 02-14-2024 IR Angiogram w/TLA/S tent Right Leg (Right) MD Keaton Rico Work Phone: Start: 09-12-2023 Ankle brachial press ure index MD Keaton Rico Work Phone: Start: 09-12-2023 Duplex scan of lower limb arteries MD Keaton Rico Work Phone: Start: 05-18-2023 Lower limb angiography MD Keaton Rico Work Phone: Start: 05-02-2023 CT of abdominal aort a with contrast MD Keaton Rico Work Phone: Start: 06-16-[address] KEATON RICO Comment on above: Performed By: #### P [facility] #### [facility] [address] [place] [address] Dr. Kathy Chang Start: 01-19-2022 Cystoscopy Maritza CARNES Start: 01-19-2022 Urodynamic studies Darrick SCOTT Herniated structure (morphologic abnormality) Maritza SCOTT Plan of Treatment Date Care Activity Detail Author Start: 09-17-[address] [facility] Start: 09-16-[address] [facility] Start: 09-15-2023 Femoral endarterectomy OR Fem- Fem/Fem Endart/Patch Graft (Right) [facility] Start: 09-14-2023 Hospital admission [facility] Start: 05-18-[address] [facility] Ankle brachial press ure index [facility] Patient Education [facility] Work Phone: Patient referral [facility] Work Phone: Immunizations Immunization Date Immunization Notes Care Provider Fa ciliolman 06-09-2021 SARS-CoV-2 (COVID-19 ) mRNA BNT-162b2 vax Maritza SCOTT [facility] Comment on above: Result Comment: 2022: [id number] 12-01-2020 COVID-19 mRNA, Comirnaty (Pfizer) MD Keaton Rico Work Phone: [facility] 11-10-2020 COVID-19 Jayleen Perkins (Pfizer) MD Keaton Rico Work Phone: [facility] 11-07-2020 SARS-CoV-2 (COVID-19 ) Ad26 vaccine, recombinant Maritza SCOTT [facility] 10-28-2020 SARS-CoV-2 (COVID-19 ) mRNA BNT-162b2 vax Maritza SCOTT [facility] 10-10-2020 SARS-CoV-2 (COVID-19 ) Ad26 vaccine, recombinant Maritza SCOTT [facility] 10-06-2020 SARS-CoV-2 (COVID-19 ) mRNA BNT-162y3 vax Maritza SCOTT [facility] 09-25-1997 Hep A, unspecified formulation Maritza SCOTT [facility] 09-25-1997 hepatitis B vaccine, adult dosage Mraitza SCOTT [facility] 02-27-1997 hepatitis B vaccine, adult dosage Maritza SCOTT [facility] 01-22-1997 Hep A, unspecified formulation Maritza SCOTT [facility] 01-22-1997 hepatitis B vaccine, adult dosage Maritza SCOTT [facility] 01-22-1997 Td(adult) unspecifie d formulation Maritza SCOTT [facility] Payers Date Payer Category Payer Unknown [id number] 2023 Medicare [id number] 2023 Self-pay [id number] 2021 Unknown [id number] 1959 Unknown [id number] 1955 Unknown [id number] 2.16.8 [id number] 1955 Unknown [id number] 2.16.8 40.1.873421.3.579.2.727 1955 Unknown [id number] 2.16.8 40.1.455273.3.579.2.727 1955 Unknown [id number] .16.8 40.1.003101.3.579.2.727 1955 Unknown [id number] 2.16.8 40.1.858861.3.579.2.727 1955 Unknown [id number] 2.16.84 0.1.609459.3.579.2.593 1955 Unknown [id number] 2.16.84 0.1.340718.3.579.2.593 1955 Unknown [id number] 2.16.84 0.1.079979.3.579.2.593 1955 Unknown [id number] 2.16.84 0.1.306004.3.579.2.593 1955 Unknown [id number] 2.16.84 0.1.566532.3.579.2.593 Unknown [id number] 2.16.8 40.1.193027.3.579.2.531 Unknown [id number] 2.16.8 40.1.638598.3.579.2.531 Unknown [id number] 2.16.8 40.1.999988.3.579.2.531 Unknown [id number] 2.16.8 40.1.028658.3.579.2.531 Unknown [id number] 2.16.8 40.1.340396.3.579.2.531 Social History Date Type Detail Facility Start: 12-21-2021 End: 04-19-2022 Tobacco smoking status Heavy tobacco smoker (finding) [facility] [employer] Other Start: 09-14-2068 Sex Assigned At Male [facility] [employer] Other Start: 05-18-2023 End: 09-17-2023 Tobacco smoking status WVIS Smoker (finding) [facility] Start: 1955 Sex Assigned At Male F [facility] Start: 10-11-2023 Tobacco smoking stat us NHIS Ex-smoker (finding) [facility] Medical Equipment Procedure Code Equipment Code Equipment Origin al Text Equipment Identifier Dates Angiogram, lower extremity, left Multiple peripheral artery stent, bare-metal [id number] FDA Start: 05-18-2023 Angiogram, lower extremity, left Multiple peripheral artery stent, bare-metal [id number] FDA Start: 05-18-2023 Angiogram, for thrombolysis follow-up Multiple peripheral artery stent, bare-metal [id number] FDA Start: 09-15-2023 Angiogram, for thrombolysis follow-up Multiple peripheral artery stent, bare-metal [id number] FDA Start: 09-15-2023 Multiple peripheral artery stent, bare-metal [id number] FDA Start: 05-21-2021 Multiple peripheral artery stent, bare-metal [id number] FDA Start: 05-21-2021 Multiple peripheral artery stent, bare-metal [id number] FDA Start: 05-21-2021 Goals Date Patient Goal Desired Activity /State Functional Status Date Assessment Result Facility 09-17-2023 Functional status Patient at Baseline [facility] Work Phone: 04-19-2022 Functional Status N/A [facility] 01-15-2022 Functional Status N/A [facility] Mental Status Date Assessment Result Facility 09-17-2023 Cognitive function Cognitive Sta tus Patient at Baseline [facility] Work Phone: Clinical Notes 05-11-2021 to 03-09-2024 Note Date & Type Note Facility 03-09-2024 Note Cardiology Clinic No te Subjective Pawan Bustillo is a 68 y.o. year old male patient with hypertension, hyperlipidemia, tobacco abuse, PAD s/p bilateral common and bilateral external iliac stents by Dr. Schroeder at [facility] in 05/2021, and CAD status post PCI ro mLAD in 2015. He presents today for follow up. Pt here for six month follow up. Patient stopped smoking in September, was started on Xarelto by vascular surgery. Patient adamantly denies any cardiac complaints or concerns. Patient denies any chest pain or shortness of breath. Patient denies any lower extremity edema, orthopnea, or proximal nocturnal dyspnea. No near-syncope or syncope. No dizziness or lightheadedness. Patient Active Problem List Diagnosis Urinary urgency Tobacco dependence syndrome Chronic obstructive pulmonary disease (CMS/HCC) Prostatitis Poor urinary stream Myocardial infarction (CMS/HCC) Increased frequency of urination Incomplete emptying of bladder Hypertensive disorder Hyperlipidemia Glaucoma Fatigue Dyspnea on exertion Current smoker Coronary arteriosclerosis Cardiovascular stress test abnormal Benign prostatic hyperplasia with urinary obstruction Zcnhv-6-yfhtbweggec deficiency (CMS/HCC) Arthritis Claudication (CMS/HCC) Feeling of incomplete bladder emptying Gastroesophageal reflux disease Internal derangement of left shoulder prison current use of inhaled steroid Multiple pulmonary nodules Family History Problem Relation Name Age of Onset Coronary artery disease Mother Coronary artery disease Sister Coronary artery disease Brother Social History Tobacco Use Smoking status: Every Day Types: Cigarettes Smokeless tobacco: Never Substance Use Topics Alcohol use: Yes Comment: moderate HPI Update: 09/27/2022 Pawan Bustillo is a 67 y.o. year old male patient with hypertension, hyperlipidemia, tobacco abuse, PAD s/p bilateral common and bilateral external iliac stents by Dr. Schroeder at [facility] in 05/2021, and CAD status post PCI ro mLAD in 2016. He is here for cardiac risk stratification for left shoulder arthroscopy. He is on chronically on DAPT (Aspirin/Effient) therapy since PCI in 2016. Reports worsening dyspnea on exertion with variable functional capacity. He is able to do yard work with frequent breaks. Review of Systems Cardiovascular: Positive for dyspnea on exertion. Neurological: Positive for light-headedness. All other systems reviewed and are negative. Objective Visit Vitals Smoking Status Every Day Physical Exam General: Awake, alert, good spirits. NAD Pulm: Severely diminished air movement in all lung lainez Cards: Regular rate and rhythm, S1, S2. No S3 or S4 gallop. Murmur: none Abd: Soft, Nontender, physiologic bowel sounds are present Extr: Lower extremity edema: None. Skin: warm, dry, well perfused Neuro: A&Ox3, No gross deficits Allergies No Known Allergies Medications Current Outpatient Medications: albuterol 90 mcg/actuation inhaler, Inhale 2 puffs every 4 (four) hours if needed., Disp: , Rfl: aspirin 81 mg EC tablet, Take 81 mg by mouth in the morning., Disp: , Rfl: ezetimibe (Zetia) 10 mg tablet, TAKE 1 TABLET IN THE MORNING, Disp: 90 tablet, Rfl: 3 waqaosrbhjb-cvnsgquue-eaiafuch (Trelegy Ellipta) 100-62.5-25 mcg blister with device, Inhale 1 puff in the morning., Disp: , Rfl: lisinopril 10 mg tablet, Take 10 mg by mouth in the morning., Disp: , Rfl: metoprolol succinate XL (Toprol-XL) 25 mg 24 hr tablet, TAKE 1 TABLET IN THE MORNING (DO NOT CRUSH OR CHEW), Disp: 90 tablet, Rfl: 3 nicotine (Nicoderm CQ) 7 mg/24 hr patch, Place 1 patch on the skin 1 (one) time each day at the same time., Disp: 30 patch, Rfl: 0 nitroglycerin (Nitrostat) 0.4 mg SL tablet, Place 0.4 mg under the tongue every 5 (five) minutes if needed for chest pain. May repeat times 3 doses as needed for chest pain, Disp: , Rfl: simvastatin (Zocor) 40 mg tablet, Take 40 mg by mouth at bedtime., Disp: , Rfl: tamsulosin (Flomax) 0.4 mg 24 hr capsule, Take 0.4 mg by mouth in the morning., Disp: , Rfl: Recent Labs 11/04/2022 WBC 15.8, hemoglobin 16.1, hematocrit 47.6, platelets 190 Sodium 139, potassium 4.7, chloride 100, CO2 30.3, serum creatinine 1.01 09/28/2022 WBC 8.7, hemoglobin 17.3, hematocrit 50.6, platelets 200 Sodium 139, potassium 5.1, chloride 103, CO2 32.3, glucose 111, BUN 20, serum creatinine 0.97, estimated GFR greater than 60% Total cholesterol 145, HDL 50, triglycerides 58, LDL 83.8 Imaging and other tests Coronary angiography: 10/21/2022 Final Impression: 1) The LAD stent is patent. 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 [facility] 09-17-2023 Consult note Note Date/Time September 17, 2023 9:59am [facility] [address] [place] [address] Pulmonology Consult Note Signed Patient: Pawan Bustillo MR#: [id number] : 1955 Acct:[id number] Age/Sex: 67 / M Adm Date: 4 Loc: Room: [address] [place] [address] Type: ADM IN Attending Dr: Tom Schroeder MD Copies to: MD Tom Klein MD Marcia E Braun, MD~ HPI Date/Time of Consultation: Date of Service: 09/17/2023 Time of Service: 09:53 Consulting Provider: Juventino Kruse Requesting Provider: Tom Schroeder Reason for Consult: unable to wean O2 History of Present Illness History of present illness: Mr. Bustillo is a 67 year old male who initially presented to the hospital on 09/14/2023 where he underwent right iliac artery stenting and angioplasty of the external iliac artery. During his hospital course, he has intermittently had low O2 saturation and has been on 1 to 2 L via nasal cannula. Denies any dyspnea or chest pain. Does say that he occasionally will have a cough that he feels like he is able to clear some phlegm. Denies any fevers or chills. Does have a significant smoking history and follows with a pulmonary physician for which she is on Trelegy and as needed albuterol. He tells me he had recent testing (sounds like 6-minute walk testing) where he was told he did not need supplemental oxygen at that time. He does say in the past that he has had procedures where he has required supplemental oxygen while hospitalized. Review of Systems Review of Systems All other systems reviewed & are negative unless noted below or in HPI [facility] Medical History (Updated 09/17/23 @ 09:57 by Juventino Kruse MD) BPH (benign prostatic hyperplasia) Problem List clean-up per request of Phys. [facility] COPD (chronic obstructive pulmonary disease) Problem List clean-up per request of Phys. [facility] Myocardial infarct Problem List clean-up per request of Phys. [facility] Surgical History H/O repair of rotator cuff Problem List clean-up per request of Phys. [facility] History of ankle surgery RIGHT Problem List clean-up per request of Phys. [facility] H/O hernia repair Problem List clean-up per request of Phys. [facility] H/O heart artery stent Problem List clean-up [facility] Family History (Updated 06/13/23 @ 10:05 by Provider Conversion) Brother Legacy FamHx Relation: Brother(s) Heart disease Legacy FamHx Relation: Brother(s) Father Heart disease Mother Heart disease Sister Heart disease Social History Smoking Status: Current every day smoker Tobacco Type: cigarettes Substance Use Type: Marijuana Meds Medications and Allergies Allergies No Known Drug Allergies Allergy (Unknown, Verified 06/13/23 10:05) No Known Allergies Allergy (Verified 05/18/23 08:11) Home Medications albuterol sulfate 90 mcg/actuation aerosol inhaler (Ventolin HFA) 2 puff inhalation QID PRN Wheezing 05/13/21 [History Confirmed 09/14/23] aspirin 81 mg tablet,delayed release 81 mg PO DAILY 05/13/21 [History Confirmed 09/14/23] fluticasone fur. 100 mcg-umeclid 62.5 mcg-vilant 25 mcg inhalat.powder (Trelegy Ellipta) 1 inh inhalation DAILY 05/13/21 [History Confirmed 09/14/23] lisinopril 10 mg tablet 10 mg PO DAILY 05/13/21 [History Confirmed 09/14/23] simvastatin 40 mg tablet 40 mg PO HS 05/13/21 [History Confirmed 09/14/23] tamsulosin 0.4 mg capsule (Flomax) 0.4 mg PO BID 05/13/21 [History Confirmed 09/14/23] ezetimibe 10 mg tablet 10 mg PO DAILY 05/18/23 [History Confirmed 09/14/23] metoprolol succinate 25 mg tablet,extended release 24 hr 25 mg PO DAILY 05/18/23[History Confirmed 09/16/23] nitroglycerin 0.4 mg sublingual tablet 0.4 mg sublingual Q5MIN PRN Chest Pain 05/18/23 [History Confirmed 09/14/23] clopidogrel 75 mg tablet (Plavix) 75 mg PO DAILY #90 tabs 09/16/23 [Rx] rivaroxaban 2.5 mg tablet (Xarelto) 2.5 mg PO BID 90 days #90 tabs 09/16/23 [Rx] Exam Physical Exam Vital Signs: Temp Pulse Resp BP Pulse Ox O2 Del Method O2 Flow Rate 99.9 F H 94 H 20 145/76 H 88 L Room Air 1 09/17/23 08:00 09/17/23 08:00 09/17/23 08:00 09/17/23 08:00 09/17/23 08:00 09/17/23 08:00 09/17/23 07:26 Narrative: General: AOx3, NAD, resting comfortably on 1L O2 Head: Normocephalic and atraumatic Neck: No obvious elevation of JVP Mouth: Moist mucous membranes Pulmonary: Faint basilar rhonchi, no wheezing or crackles, prolongation of expiration Cardiovascular: There is a regular rate and rhythm, normal S1 and S2, no murmurs, rubs, gallops Abdomen: Soft, nondistended, nontender to palpation Extremities: There is no clubbing of the upper extremities, there was no lower extremity edema Neurological: follows all commands, no gross focal deficits Psych: mood normal, affect normal Results Intake and Output I&O - Last 24 Hours: Intake & Output 09/16/23 09/17/23 09/17/23 23:59 07:59 15:59 Intake Total 350 / 1850 150 / 150 Output Total 800 / 2450 650 / 650 Balance -450 / -600 -500 / -500 Weight 84.5 kg Labs 09/16/23 01:43 09/15/23 11:20 Assessment/Plan (1) Postoperative acute respiratory failure: Plan Assessment: 1. Postoperative respiratory failure 2. COPD, per report 3. Peripheral arterial disease status post stenting/angioplasty Plan: ? Chest x-ray ordered, suspect that he has underlying postoperative atelectasis based on exam findings and respiratory insufficiency ? Encourage use of incentive spirometry ? Ordered for DuoNebs to help with secretion clearance ? He is on Symbicort while here in the hospital, if he is able to bring in his trilogy from home he could continue with this ? If CXR consistent with atelectasis, I would anticipate weaning from supplemental oxygen after bronchodilators, incentive spirometry Documented By: Juventino Kruse MD 09/17/23 0953 Signed By: <Electronically signed by Juventino Kruse MD> 09/17/23 0958 [facility] Work Phone: 1(457) 211-163502-16-[address] [facility] Progress note Author Tom Schroeder [facility] September 15, 2023 3:56pm Note Date/Time September 15, 2023 3:56pm [facility] [address] [place] [address] Vascular Surgery Progress Note Signed Patient: Pawan Bustillo MR#: [id number] : 1955 Acct:[id number] Age/Sex: 67 / M Adm Date: 4 Loc: Room: [address] [place] [address] Type: ADM IN Attending Dr: Tom Schroeder MD Copies to: ~ Date of Service: 09/15/2023 Subjective Subjective Interval history: Patient underwent revascularization this morning with repeat stenting of his common iliac artery and angioplasty of the external iliac artery. I came to seehim postoperatively and he reports that his foot feels like it is asleep although he can move it and he can feel light touch. The foot was found to be pale with no Doppler signal. Exam Physical Exam Vital Signs: Temp Pulse Resp BP Pulse Ox O2 Del Method O2 Flow Rate 98.0 F 78 18 117/65 92 L Nasal Cannula 3 09/15/23 15:00 09/15/23 15:30 09/15/23 15:30 09/15/23 15:30 09/15/23 15:30 09/15/23 15:30 09/15/23 15:30 Narrative: Awake and alert and interacts appropriately. Left foot is pink and warm with good Doppler signal in both the posterior tibial and dorsalis pedis. Puncture sites at both groins are normal with no hematoma. Right popliteal pulses strongand palpable. There is no palpable right pedal pulse and I could not detect a Doppler signal in the right foot. The foot is cool but has intact motor function and sensation to light touch Objective Labs 09/15/23 14:26 09/15/23 11:20 Other Labs: Laboratory Results - last 24 hr 09/14/23 09/14/23 09/15/23 15:22 21:42 03:21 Corrected WBC 6.1 6.0 Uncorrected WBC Count 6.1 6.0 RBC 4.43 4.55 Hgb 15.0 15.4 Hct 44.4 45.4 MCV 100.2 99.8 MCH 33.9 33.9 MCHC 33.8 34.0 RDW 14.1 14.0 Plt Count 153 145 L MPV 8.0 7.7 Neut % (Auto) 65.7 64.5 Lymph % (Auto) 22.1 22.9 Shannon % (Auto) 7.3 8.6 Eos % (Auto) 4.1 3.7 Baso % (Auto) 0.8 0.3 Nucleat RBC Rel Count 0.2 0.1 Neut # (Auto) 4.0 3.9 Lymph # (Auto) 1.3 1.4 Shannon # (Auto) 0.4 0.5 Eos # (Auto) 0.3 0.2 Baso # (Auto) 0.0 0.0 PT 12.1 11.5 12.3 INR 1.0 1.0 1.1 APTT 30.0 32.2 35.4 Fibrinogen 224 215 166 L PHA Creatinine Clear Sodium Potassium Chloride Carbon Dioxide Anion Gap BUN Creatinine Est GFR (CKD-EPI) Glucose Calcium 09/15/23 09/15/23 11:20 14:26 Corrected WBC 7.5 8.5 Uncorrected WBC Count 7.5 8.5 RBC 4.52 4.36 Hgb 15.0 14.8 Hct 45.3 43.4 MCV 100.2 99.7 MCH 33.1 33.9 MCHC 33.1 34.0 RDW 14.0 14.1 Plt Count 138 L 133 L MPV 7.9 7.4 Neut % (Auto) 79.7 85.7 Lymph % (Auto) 12.0 7.7 Shannon % (Auto) 7.2 5.8 Eos % (Auto) 0.9 0.4 Baso % (Auto) 0.2 0.4 Nucleat RBC Rel Count 0.1 0.1 Neut # (Auto) 6.0 7.3 Lymph # (Auto) 0.9 L 0.7 L Shannon # (Auto) 0.5 0.5 Eos # (Auto) 0.1 0.0 Baso # (Auto) 0.0 0.0 PT 13.1 H INR 1.1 APTT 32.6 Fibrinogen 172 L PHA Creatinine Clear 95.43 Sodium 137 Potassium 4.7 Chloride 106 Carbon Dioxide 29.9 Anion Gap 5.8 L BUN 11 Creatinine 0.69 L Est GFR (CKD-EPI) > 60.0 Glucose 95 Calcium 8.3 L A&P - Vascular Assessment/Plan (1) Peripheral arterial occlusive disease: Plan This patient has continued symptoms of ischemia in his right foot with an abnormal physical examination despite mormonism of his inflow. It is likely that he has had a distal embolic event. We will plan to return to the angiography suite to investigate. Both groins have not been punctured for inflow treatment. The aortic bifurcation is elevated now and would be difficultto cross. 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 We will use a [place] percutaneous atherectomy thrombectomy device and we will follow that with intravascular ultrasound to look for any potential cause for the early stent failure. I will likely give him full dose oral anticoagulation along with aspirin after this episode. He is aware that he needs to discontinue smoking. [facility] Other 02-09-2024 NoteCardiology Clinic Note Subjective Pawan Bustilol is a 67 y.o. year old male patient with hypertension, hyperlipidemia, tobacco abuse, PAD s/p bilateral common and bilateral external iliac stents by Dr. Schroeder at [facility] in 05/2021, and CAD status post PCI ro mLAD in 2015. He presents today for follow up. Patient recently had angioplasty for LE in May. Today, patient denies any cardiac complaints or concerns. He denies any chest pain or shortness of breath. He denies any lower extremity edema, orthopnea, paroxysmal nocturnal dyspnea. He does endorse some lower extremity claudication, which she states briefly improved after angioplasty. He is scheduled to follow-up with his vascular surgeon this week and will discuss with him. No additional cardiac complaints or concerns at the present time. Unfortunately, patient continues to smoke. Patient Active Problem List Diagnosis Urinary urgency Tobacco dependence syndrome Chronic obstructive pulmonary disease (CMS/HCC) Prostatitis Poor urinary stream Myocardial infarction (CMS/HCC) Increased frequency of urination Incomplete emptying of bladder Hypertensive disorder Hyperlipidemia Glaucoma Fatigue Dyspnea on exertion Current smoker Coronary arteriosclerosis Cardiovascular stress test abnormal Benign prostatic hyperplasia with urinary obstruction Tkgvz-0-fuhkjddsjtd deficiency (CMS/HCC) Arthritis Claudication (CMS/HCC) Feeling of incomplete bladder emptying Gastroesophageal reflux disease 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 year old male patient with hypertension, hyperlipidemia, tobacco abuse, PAD s/p bilateral common and bilateral external iliac stents by Dr. Schroeder at [facility] in 05/2021, and CAD status post PCI ro mLAD in 2016. He is here for cardiac risk stratification for left shoulder arthroscopy. He is on chronically on DAPT (Aspirin/Effient) therapy since PCI in 2016. Reports worsening dyspnea on exertion with variable functional capacity. He is able to do yard work with frequent breaks. Review of Systems Cardiovascular: Negative for chest pain, claudication, dyspnea on exertion, irregular heartbeat, leg swelling, near-syncope, orthopnea, palpitations, paroxysmal nocturnal dyspnea and syncope. Neurological: Negative for light-headedness. Objective Visit Vitals BP 106/62 (BP Location: Right arm, Patient Position: Sitting) Pulse 83 Ht 1.829 m (6') Wt 86.6 kg (191 lb) SpO2 92% BMI 25.90 kg/m??? Smoking Status Every Day BSA 2.1 m??? Physical Exam General: Awake, alert, good spirits. NAD Pulm: Severely diminished air movement in all lung lainez Cards: Regular rate and rhythm, S1, S2. No S3 or S4 gallop. Murmur: none Abd: Soft, Nontender, physiologic bowel sounds are present Extr: Lower extremity edema: None. Skin: warm, dry, well perfused Neuro: A&Ox3, No gross deficits Allergies No Known Allergies Medications Current Outpatient Medications: albuterol 90 mcg/actuation inhaler, Inhale 2 puffs every 4 (four) hours if needed., Disp: , Rfl: aspirin 81 mg EC tablet, Take 81 mg by mouth in the morning., Disp: , Rfl: ezetimibe (Zetia) 10 mg tablet, Take 1 tablet (10 mg) by mouth in the morning., Disp: 90 tablet, Rfl: 3 xuvrtvchzik-ylnnjqxde-yyycfwqc (Trelegy Ellipta) 100-62.5-25 mcg blister with device, Inhale 1 puff in the morning., Disp: , Rfl: lisinopril 10 mg tablet, Take 10 mg by mouth in the morning., Disp: , Rfl: metoprolol succinate XL (Toprol-XL) 25 mg 24 hr tablet, Take 1 tablet (25 mg) by mouth in the morning. Do not crush or chew., Disp: 90 tablet, Rfl: 3 nitroglycerin (Nitrostat) 0.4 mg SL tablet, Place 0.4 mg under the tongue every 5 (five) minutes if needed for chest pain. May repeat times 3 doses as needed for chest pain, Disp: , Rfl: simvastatin (Zocor) 40 mg tablet, Take 40 mg by mouth at bedtime., Disp: , Rfl: tamsulosin (Flomax) 0.4 mg 24 hr capsule, Take 0.4 mg by mouth in the morning., Disp: , Rfl: nicotine (Nicoderm CQ) 7 mg/24 hr patch, Place 1 patch on the skin 1 (one) time each day at the same time., Disp: 30 patch, Rfl: 0 Recent Labs 11/04/2022 WBC 15.8, hemoglobin 16.1, hematocrit 47.6, platelets 190 Sodium 139, potassium 4.7, chloride 100, CO2 30.3, serum creatinine 1.01 09/28/2022 WBC 8.7, hemoglobin 17.3, hematocrit 50.6, platelets 200 Sodium 139, potassium 5.1, chloride 103, CO2 32.3, glucose 111, BUN 20, serum creatinine 0.97, estimated GFR greater than 60% Total cholesterol 145, HDL 50, triglycer (more content not included)... [facility]02-09-2024 NotePatient here for 9 mo follow up CAD, PAD, PVC's, and hypertension. He had LE angioplasty in May [address] Schroeder in [place] on Tuesday. States he has not taken Effient since it was stopped earlier this year, even s/p PCI. Denies chest pain, palpitations, and lightheadness.[facility] 05-16-2023 Evaluation note* Encounter Date Diagnosis Assessment Notes Treatment Notes Treatment Clinical Notes May, Peripheral vascular disease, unspecified (ICD-10 - I73.9) May, Other specified postprocedural states (ICD-10 - Z98.890) May, Other Peripheral jose angel ry occlusive disease He has failure of his right iliac stent and likely bilateral recurrent external iliac artery occlusive disease. Today we had a long talk about smoking cessation, the impact that continued smoking has on the patency of reconstruction, the increased risks for limb loss with repeat interventions. He is quite debilitated at this time and so will undergo attempted repeat endovascular intervention. Nature of the procedure was discussed with the patient and his in detail and we reviewed all the images. He will either need Plavix or low-dose Xarelto in addition to his current medical regimen. [facility] Other 09-26-2023 Evaluation note* Encounter Date Diagnosis Assessment Notes Treatment Notes Treatment Clinical Notes Apr, PAD (peripheral artery disease) (ICD-10 - I73.9) This patient has known peripheral arterial disease with previous bilateral iliac intervention. He complains of very short distance buttock claudication. By physical examination he has decreased pedal pulses bilaterally. On the right, he has nonpalpable femoral, popliteal, and pedal pulses. He is on good medical therapy with use of aspirin and statin medication daily. He has no ischemic rest pain and no tissue loss. At this juncture, due to severe short distance buttock claudication with history of previous iliac intervention I recommend CTA of the aorta with runoff to evaluate his lower extremity arterial supply. I suspect recurrent stenosis bilaterally. We will have him back to the office after the CT to discuss those results as well as any treatment recommendations based on those studies. Discussed continued walking program. He should also work on smoking cessation. Apr, Decreased pedal pulses (ICD-10 - R09.89) Apr, Current every day smoker (ICD-10 - F17.200) Discussed health risk associated with tobacco smoking. Patient understands his risks and is unmotivated to quit. Apr, Claudication in peripheral vascular disease (ICD-10 - I73.9) [facility] Other 05-25-2023 Evaluation note* Encounter Date Diagnosis Assessment Notes Treatment Notes Treatment Clinical Notes November, COPD exacerbation (ICD-10 - J44.1) Bronchitis suspected due to wheezes, chest tightness, cough and/or impaired air movement. Medication prescribed. Avoid extreme heat and cold as this may exacerbate inflammation of airways. If wheezing, chest tightness and/or SOB occurs, go to ER. Anbx may not be necessary at this time. [facility] Other 04-11-2023 Evaluation note* Encounter Date Diagnosis Assessment Notes Treatment Notes Treatment Clinical Notes Oct, Bronchitis (ICD-10 - J40) Bronchitis: Care Instructions material was printed Pt is acutely sick with acute complicated bronchitis Recommend: Antibiotics: Azithromycin 50 mg po daily for 5 days Bronchodilator: Albuterol with prednisone taper expectorent: Mucinex\ Pawan agreed I could send note to [facility] Cardiology. Will check on his improvement on 11/12. [facility] Other 09-19-2022 Hospital Discharge instructions Patient Education 04/19/2022 10:27:00 Prostatitis Prostatitis Prostatitis is swelling or inflammation of the prostate gland. The prostate is a walnut-sized glandthat is involved in the production of semen. It is located below a man's bladder, in front of the rectum. There are four types of prostatitis: Chronic nonbacterial prostatitis. This is the most common type of prostatitis. It may be associatedwith a viral infection or autoimmune disorder. Acute bacterial prostatitis. This is the least common type of prostatitis. It starts quickly and isusually associated with a bladder infection, high fever, and shaking chills. It can occur at any age. Chronic bacterial prostatitis. This type usually results from acute bacterial prostatitis that happens repeatedly (is recurrent) or has not been treated properly. It can occur in men of any age but is most common among middle-aged men whose prostate has begun to get larger. The symptoms are not as severe as symptoms caused by acute bacterial prostatitis. Prostatodynia or chronic pelvic pain syndrome (CPPS). This type is also called pelvic floor disorder. It is associated with increased muscular tone in the pelvis surrounding the prostate. What are the causes? Bacterial prostatitis is caused by infection from bacteria. Chronic nonbacterial prostatitis may becaused by: Urinary tract infections (UTIs). Nerve damage. A response by the body s disease-fighting system (autoimmune response). Chemicals in the urine. The causes of the other types of prostatitis are usually not known. What are the signs or symptoms? Symptoms of this condition vary depending upon the type of prostatitis. If you have acute bacterialprostatitis, you may experience: Urinary symptoms, such as: ?Painful urination. ?Burning during urination. ?Frequent and sudden urges to urinate. ?Inability to start urinating. ?A weak or interrupted stream of urine. Vomiting. Nausea. Fever. Chills. Inability to empty the bladder completely. Pain in the: ?Muscles or joints. ?Lower back. ?Lower abdomen. If you have any of the other types of prostatitis, you may experience: Urinary symptoms, such as: ?Sudden urges to urinate. ?Frequent urination. ?Difficulty starting urination. ?Weak urine stream. ?Dribbling after urination. Discharge from the urethra. The urethra is a tube that opens at the end of the penis. Pain in the: ?Testicles. ?Penis or tip of the penis. ?Rectum. ?Area in front of the rectum and below the scrotum (perineum). Problems with sexual function. Painful ejaculation. Bloody semen. How is this diagnosed? This condition may be diagnosed based on: A physical and medical exam. Your symptoms. A urine test to check for bacteria. An exam in which a health care provider uses a finger to feel the prostate (digital rectal exam). A test of a sample of semen. Blood tests. Ultrasound. Removal of prostate tissue to be examined under a microscope (biopsy). Tests to check how your body handles urine (urodynamic tests). A test to look inside your bladder or urethra (cystoscopy). How is this treated? Treatment for this condition depends on the type of prostatitis. Treatment may involve: Medicines to relieve pain or inflammation. Medicines to help relax your muscles. Physical therapy. Heat therapy. Techniques to help you control certain body functions (biofeedback). Relaxation exercises. Antibiotic medicine, if your condition is caused by bacteria. Warm water baths (sitz baths). Sitz baths help with relaxing your pelvic floor muscles, which helpsto relieve pressure on the prostate. Follow these instructions at home: Take nhvy-rct-skatwst and prescription medicines only as told by your health care provider. If you were prescribed an antibiotic, take it as told by your health care provider. Do not stop taking the antibiotic even if you start to feel better. If physical therapy, biofeedback, or relaxation exercises were prescribed, do exercises as instructed. Take sitz baths as directed by your health care provider. For a sitz bath, sit in warm water that is deep enough to cover your hips and buttocks. Keep all follow-up visits as told by your health care provider. This is important. Contact a health care provider if: Your symptoms get worse. You have a fever. Get help right away if: You have chills. You feel nauseous. You vomit. You feel light-headed or feel like you are going to faint. You are unable to urinate. You have blood or blood clots in your urine. This information is not intended to replace advice given to you by your health care provider. Make sure you discuss any questions you have with your health care provider. Document Released: 07/15/2001 Document Revised: 09/30/2018 Document Reviewed: 04/07/2017 [employer] Patient Education fitogram. Follow Up Care 01/19/2022 12:19:40 With:TSERING BARRY, Maritza Balderas, URL Address: [facility] [address] [place] [address]- [phone] When:10/17/2022 Comments:PVR [facility] 06-22-2022 Note [id number] 01-19-2022 Hospital Discharge instructions Patient Education 01/19/2022 12:18:25 EU - Cystoscopy Discharge Instructions (CUSTOM) Cystoscopy Voiding after the procedure: there may be some pain, burning, urgency, frequency and blood tinged urine following the procedure. These symptoms usually resolve within 2-5 days. Drink the amount of fluid it takes to keep the urine pink to yellow or clear in color. Drinking enough water and fluids will help to ease any discomfort after your procedure. If you are having problems that seem out of the ordinary, please call. If unable to contact your physician and you feel it is an emergency, go to the nearest emergency room or call 911 Diet you may resume your normal diet. Activity you may resume your normal activities Call if you have a fever over 100 degrees. Follow Up Care 12/21/2021 11:45:08 With:Maritza SCOTT Address: [facility] [address] [place] [address]- [facility] (1) When:04/21/2022 12:18:02 Comments:With a bladder scan PVR [facility]06-21-2022 NoteCustom Cystoscopy ? Voiding after the procedure: there may be some pain, burning, urgency, frequency and blood tingedurine following the procedure. These symptoms usually resolve within 2-5 days. Drink the amount of fluid it takes to keep the urine pink to yellow or clear in color. Drinking enough water and fluids will help to ease any discomfort after your procedure. ? If you are having problems that seem out of the ordinary, please call. ? If unable to contact your physician and you feel it is an emergency, go to the nearest emergency room or call 911 ? Diet ? you may resume your normal diet. ? Activity ? you may resume your normal activities ? Call if you have a fever over 100 degrees.[facility] 01-19-2022 Evaluation + Plan noteExtracted from: Title:Urology Progress Note Author:Agustin SCOTT MD Date:01/19/22 Impression and Plan Impression: #1. This gentleman has BPH with LUTS refractory to Flomax. 2. He has partially treated prostatitis. Plan: #1. He will continue his twice daily Flomax. 2. We will start doxycycline 100 mg twice daily for 3 weeks. 3. He will do timed voids every 3 hours and focus on emptying well. 4. He will follow-up in 3 months and we will check a bladder scan PVR. If his PVR is still greater than 300 we then will institute clean intermittent cath once a day. Future Appointments Appointment Date:04/19/2022 09:30:00 AM Scheduled Provider:Maritza SCOTT MD Location:[facility] Appointment Type:URO Office Visit [facility]10-11-2021 Evaluation note* Encounter Date Diagnosis Assessment Notes Treatment Notes Treatment Clinical Notes May, Peripheral vascular occlusive disease (ICD-10 - I73.9) This patient has aortoiliac disease by physical examination and history with severe bilateral lifestyle limiting buttock claudication that has deteriorated despite him being an active individual and is now limiting his ability to do his job or take care of his home environment. He will undergo diagnostic arteriogram to look at options for intervention. I advised him strongly that he needs to discontinue cigarettes, and he continues to work on that. At his next visit, if he wishes I would be happy to provide him Chantix. Today he was unsure about that. I will see him back once his arteriogram is completed May, Current smoker (ICD-10 - F17.200) [facility] Other Evaluation + Plan note Future Appointments Appointment Date:10/18/2022 10:45:00 AM Scheduled Provider:Maritza SCOTT MD Location:[facility] Appointment Type:URO Office Visit Diagnostic Tests Pending * PSA Total 04/19/22 [facility] evalbevwcb noteNo InformationNort Nostalgia [place] Other Evaluation noteNo assessment information available [facility] Work Phone: evaluation note* Diagnosis Onset Date Resolution Status Peripheral arterial occlusive disease acute Postoperative acute respiratory failure acute [facility] Work Phone: Evaluation note* Diagnosis Onset Date Resolution Status Bronchitis acute COPD exacerbation acute Peripheral arterial occlusive disease acute [facility] Work Phone: [facility] Narrative - Reported* Type Description Date Medical History PVOD w/claudication Medical History hypercholesterolemia Medical History CAD Medical History MO Surgical History hernia repair Surgical History heart stent Surgical History ankle surgery [facility] Other [facility] general Narrative - Reported* Type Description Date Medical History PVOD w/claudication Medical History hypercholesterolemia Medical History CAD Medical History MO Surgical History hernia repair Surgical History heart stent Surgical History ankle surgery Hospitalization History SEE SURGICAL HX [facility] Other [facility] Narrative - Reported* Type Description Date Medical History PVOD w/claudication Medical History hypercholesterolemia Medical History CAD Medical History MO Surgical History hernia repair Surgical History heart stent Surgical History ankle surgery Surgical History Left shoulder surgery 11/2022 Hospitalization History SEE SURGICAL HX [facility] Other [facility] Narrative - Reported* Type Description Date Medical History PVOD w/claudication Medical History hypercholesterolemia Medical History CAD Medical History MO Medical History [ ] Surgical History hernia repair Surgical History heart stent Surgical History ankle surgery Surgical History Left shoulder surgery 11/2022 Surgical History [ ] Hospitalization History SEE SURGICAL HX [facility] Other [facility] general Narrative - Reported* Type Description Date Medical History PVOD w/claudication Medical History hypercholesterolemia Medical History CAD Medical History MO Medical History PAD Medical History [ ] Surgical History hernia repair Surgical History heart stent Surgical History ankle surgery Surgical History Left shoulder surgery 11/2022 Surgical History LEG STENTS 05/2023 Hospitalization History SEE SURGICAL HX [facility] Other Hospital course Narrative No data available for this section [facility] No data available for this section [facility] progress note No data available for this section [facility] Summary Purpose Family History No Family History Records Found Relationship Condition Age at Onset Recorded Date/T mckenzie brother Unknown Heart disease Unknown father Heart disease Unknown Unknown Not Specified Unknown sister Heart disease Unknown Advance Directives No Advanced Directives Records Found Advance Directive Response Recorded Date/ Time Advance Directives No May 11, 2021 11:03am Advance Directive Response Recorded Date/ Time Advance Directives No May 11, 2021 10:03am Chief Complaint and Reason for Visit Chief Complaint I70.213 PVD Chief Complaint I70.213 Chief Complaint I70.213 PAD w/ Sudden Onset Right Foot Pain PAD w/ Sudden Onset Right Foot Pain PAD w/ Sudden Onset Right Foot Pain Reason for Visit Peripheral arterial occlusive disease Postoperative acute respiratory failure Chief Complaint chest congestion 3 MONTH F/U; AVIVA'S 12:00 I70.213 Reason for Visit Bronchitis COPD exacerbation Peripheral arterial occlusive disease Additional Source Comments (unrecognized sect ion and content) No Status Records FoundNo Status Records FoundNo Status Records FoundNo Status Records FoundNo Status Records Found INFORMATION SOURCE (unrecogn ized section and content) DATE CREATED AUTHOR 06/09/[address] [facility] DATE CREATED AUTHOR AUTHOR'S ORGANIZ ATION 10/19/2022 [facility] DATE CREATED AUTHOR AUTHOR'S ORGANIZ ATION 11/06/2022 [facility] DATE CREATED AUTHOR AUTHOR'S ORGANIZ ATION 01/22/2024 [facility] DATE CREATED AUTHOR AUTHOR'S ORGANIZ ATION 03/12/2024 [facility] Care Team (unrecognized sect ion and content) Team Status: Active Member Role Status Dates Keaton Rico MD Primary Care Provider Active Team Status: Inactive Member Role Status Dates Keaton Rico MD Primary Care Provider Active Madie Honeycutt PAPER [employer]YING MACHINE OPERATOR-C Attending Provider Active Team Status: Inactive Member Role Status Dates Keaton Rico MD Primary Care Provider Active Tom Schroeder MD Attending Provider Active Team Status: Inactive Member Role Status Dates Keaton Rico MD Primary Care Provider Active Start: September 12, 2023 End: September 12, 2023 Tom Schroeder MD Attending Provider Active S tart: September 12, 2023 End: September 12, 2023 Team Status: Inactive Member Role Status Dates Keaton Rico MD Primary Care Provider Active Start: September 14, 2023 End: September 17, 2023 Tom Schroeder MD Admit Provider, Att ending Provider Active Start: September 14, 2023 End: September 17, 2023 Juventino Kruse MD Other Provider Active Start: F ebruary 2023 End: September 17, 2023 Team Status: Active Member Role Status Dates Keaton Rico MD Primary Care Provider Active Start: September 14, 2023 Tom Schroeder MD Attending Provider, Other Provider Active Start: September 14, 2023 Team Status: Active Member Role Status Dates Keaton Rico MD Primary Care Provider Active Start: September 17, 2023 Tom Schroeder MD Admit Provider, Other Provider Ac tive Start: September 17, 2023 Juventino Kruse MD Attending Provider, Other Provider Active Start: September 17, 2023 Team Status: Inactive Member Role Status Dates Kailyn Muro APRN P[employer] MACHINE OPERATOR-C Attending Provider Act esmer Start: October 20, 2023 End: October 20, 2023 Keaton Rico MD Primary Care Provider Active Start: October 20, 2023 End: October 20, 2023 Team Status: Inactive Member Role Status Dates Keaton Rico MD Primary Care Provider Active Start: January 17, 2024 End: January 17, 2024 Tom Schroeder MD Attending Provider Active S tart: January 17, 2024 End: January 17, 2024 REASON FOR VISIT (unrecogniz ed section and content) 3 MONTH FOLLOW UP; AVIVA'S BOT H LEGS 11:30A, Right leg painGO OVER CT RESULTS FROM 05/[address] [facility] [place], Follow-up CT angiogramPain in legs, previous angiogramrefillCOUGHING, BURNING WHEN COUGHINGcheck on ptCheck UpPink Eye?REF BY DR BANKS FOR CLAUDICATION Goals (unrecognized section and content) Goals may be documented in a n alternate section FOR RECORDS PERTAINING TO PATIENTS WHO ARE OR HAVE BEEN ENROLLED IN A CHEMICAL DEPENDENCY/SUBSTANCEABUSE PROGRAM, SOME INFORMATION MAY BE OMITTED. This clinical summary was aggregated from multiple sources. Caution should be exercised in using it in the provision of clinical care. This summary normalizes information from multiple sources, and as a consequence, information in this document may materially change the coding, format and clinical context of patient data. In addition, data may be omitted in some cases. CLINICAL DECISIONS SHOULD BE BASED ON THE PRIMARY CLINICAL RECORDS. [employer] provides no warranty or guarantee of the accuracy or completeness of information in this document.
[2024-05-09 12:03] LABS: Basophils Percent Auto 0.7 % (0.2-2.0); Eosinophils Absolute Auto 0.2 10^3/uL (0.0-0.7); Eosinophils Percent Auto 3.8 % (0.9-7.0); Hematocrit 50.6 % (42.0-54.0); Hemoglobin 17.1 g/dL (14.0-18.0); Immature Granulocytes Abs Auto 0.03 10^3/uL (0.00-0.03); Immature Granulocytes Pct Auto 0.5 % (0.0-0.5); Lymphocytes Absolute Auto 1.7 10^3/uL (1.2-3.8); Lymphocytes Percent Auto 28.5 % (20.5-60.0); Mean Corpuscular HGB Conc 33.8 g/dL (29.9-35.2); Mean Corpuscular Hemoglobin 33.9 pg (25.9-34.0); Mean Corpuscular Volume 100.2 fL (80.0-94.0); Mean Platelet Volume 9.2 fL (9.5-13.5); Monocytes Absolute Auto 0.5 10^3/uL (0.3-0.8); Monocytes Percent Auto 8.2 % (1.7-12.0); Neutrophils Absolute Auto 3.4 10^3/uL (1.4-6.5); Neutrophils Percent Auto 58.3 % (43.0-75.0); Platelet Count 154 10^3/uL (150-450); Red Blood Count 5.05 10^6/uL (4.70-6.10); Red Cell Distribution Width 12.4 % (11.0-15.0); White Blood Count 5.9 10^3/uL (4.0-11.0)
[2024-05-09 13:08] LABS: Alanine Aminotransferase 36 U/L (16-63); Albumin Globulin Ratio 1.5; Albumin Level 4.2 g/dL (3.4-5.0); Alkaline Phosphatase 75 U/L (46-116); Anion Gap 9.9; Aspartate Amino Transferase 21 U/L (15-37); BUN Creatinine Ratio 13.9; Calcium 9.2 mg/dL (8.5-10.1); Carbon Dioxide 29.7 mmol/L (21.0-32.0); Chloride 101 mmol/L (98-107); Chol HDL Ratio 2.3; Cholesterol 112 mg/dL (<=200); Estimated GFR (African America >60 (>=60 mL/min/1.73m^2); Estimated GFR (Non-African Ame >60 (>=60 mL/min/1.73m^2); Globulin 2.8 g/dL; Glucose 97 mg/dL (74-106); HDL Cholesterol 49 mg/dL (40-60); LDL Cholesterol Calculated 50.8 mg/dL; Potassium 4.6 mmol/L (3.5-5.1); Sodium 136 mmol/L (136-145); Triglycerides 61 mg/dL (<=150); VLDL CHOLESTEROL 12.2 mg/dL
[2024-05-09 13:24] LABS: Prostate Specific Antigen Scrn 1.63 ng/mL (<=4.00)
== END 2024-05-09 11:42 | disposition home or self-care (01) ==
PROVIDERS: PCP Family Medicine; Visit Provider Family Medicine
DX: I77.9 Disorder of arteries and arterioles, unspecified (principal); I10 Essential (primary) hypertension; Z12.5 Encounter for screening for malignant neoplasm of prostate
CPT/HCPCS: 36415; 80053; 80061; 85025; G0103

== ENCOUNTER 2025-03-21 13:56 | Outpatient (OUT) | payer MEDICARE, SELFPAY ==
--- OUTSIDE RECORDS SUMMARY | 2024-12-11 11:00 | XMS_ITS ---
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 Name Role Phone Nakia Rascon Primary Care Provider Edmund monroe Fareed Cruz Unavailable [phone] Allergies No Known Allergies REASON FOR VISIT 2 mos F/U Medications Medication SIG (Take, Route, Frequency, Duration) Notes Start Date End Date Status Trelegy Ellipta 100-62.5-25 MCG/ACT 1 puff Inhalation Once a day for 90 days Rinse after use 04/24/2024 Active Xarelto 2.5 MG TAKE 1 TABLET BY KAL TWICE A DAY Oral for 30 Days Active Albuterol Sulfate HFA 108 (90 Base) MCG/ACT 2 puffs as needed for SOB Inhalation Q4H for 30 days Activ e Nitroglycerin 0.4 MG Sublingual for 30 Days Active Metoprolol Succinate ER 25 MG Oral for 90 Days Active Tamsulosin HCl 0.4 MG Oral for 90 Days Active Simvastatin 40 MG Oral for 90 Days Active predniSONE 20 MG Oral for 5 Days Active Prevnar 20 0.5 ML as directed Intramus cular once for 1 12/11/2024 Active Arexvy 120 MCG/0.5ML as directed Intramu scular once for 1 days 12/11/2024 Active Lisinopril 10 MG Oral for 90 Days Active Ezetimibe 10 MG Oral for 90 Days Active Azithromycin 250 MG TAKE 2 TABLETS BY MO UTH TODAY, THEN TAKE 1 TABLET DAILY FOR 4 DAYS DIRECTED Oral for 5 Days Active Boostrix 5-2.5-18.5 LF-MCG/0.5 as directed Intramuscular once for 1 days 12/11/2024 Active Social History Tobacco Use: Social History Observation Description Date Details (start date - stop date) Former Smoker NA - NA Tobacco Control (Standard) Question Answer Notes Tobacco use: Former smoker Additional Findings: Tobacco non-user Ex-heavy c igarette smoker (20-30/day) Problems Problem Type SNOMED Code ICD Code Onset Dates Problem Status W/U Status Risk Notes Problem Long-term current use of inhaled steroid ([id number]) assisted (current) use of inhaled steroids (Z79.51) Active confirmed Vital Signs Temperature 97.1 degrees Fahrenheit 12/12/19 25 Blood pressure systolic 160 mm Hg 12/12/19 25 Blood pressure diastolic 85 mm Hg 025 Heart Rate 71 /min 12/11/2024 Respiratory Rate 18 /min 12/11/2024 Height 72 in 12/11/2024 Weight 205.0 lbs 12/11/2024 BMI 27.8 kg/m2 12/11/2024 Oximetry 90 % 12/11/2024 RA Activity/Resting Encounters Encounter Location Date Provider Diagnosis Pulmonary Medicine [place] [address] [place] [address] 12/11/2024 Fareed Cruz Centrilobular emphys wicho J43.2 ; Hypoxemia R09.02 ; 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 Denies any adverse reactions. Reviewed options for him. Majority of them would require repeat testing, which he does not want to do. -Pulmonary rehabilitation (never participated) -Ohtuvayre -Dupixent (needs labs for eosinophils) -Endobronchial valves (would need to document stability or improvement in suspicious nodules, which he refused further testing) -O2 (needs full testing - 6MW, nocturnal) -Prolastin for [place] (unclear if he would qualify - needs PFT, possible repeat level testing) Despite all these options, he voiced he did not want to repeat testing at this time and will hold off on any of these. He states he will go home and discuss with his options. Continue Trelegy & albuterol for now. 12/11/2024 Hypoxemia (ICD-10 - R09.02) SpO2 88% today. Patient asked if supplemental O2 would make him feel better. Answered that O2 is one of the few things we have that can improve mortality in COPD, for those who need it. Recommended comprehensive study to assess his complete O2 needs. Patient then stated that he did not want any w/up for it. I stressed that supplemental O2 could improve his dyspnea, but he once again denied any further w/up. 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 Discussed consideration of augmentation therapy - would recheck PFT to see if any decline +/- retesting level. Patient refused this option today. 12/11/2024 Encounter for immunization (ICD-10 - Z23) Discussed pulmonary-related vaccines today which involved shared clinical decision-making with the patient. -Influenza: Annual influenza vaccination is recommended. Explained that influenza can sometimes be fatal, especially in patients with underlying lung disease. Influenza vaccination is recommended for all people. Patient refused. -Pneumococcal: Reviewed the patient's pneumococcal vaccination record. The CDC currently recommends PCV-20 vaccination regardless of past pneumococcal vaccinations. Prevnar 20 prescribed. -Respiratory Syncytial Virus (RSV): RSV vaccination is recommended for adults 60+, especially patients with respiratory comorbidities. The RSV vaccine is indicated for this patient. Arexvy prescribed. -Tdap: This was discussed due to the potential waning immunity of the Pertussis component. The CDC prefers Boostrix as a booster for those age 65+ (though any Tdap vaccine is acceptable). Boostrix prescribed. -COVID-19: This is the most contentious vaccine. There are case reports of serious adverse events with the COVID-19 vaccines. There are risks with gelacio COVID-19 as well, with the potential for . I explained that the CDC recommends vaccination with boosters and I deferred the choice to the patient. Patient refused. 12/11/2024 Multiple pulmonary nodules (ICD-10 - R91.8) History: Patient's had a history of waxing and waning nodules. Most recently on chest CT 07/05/2023, and a new 1.1 x 0.9 cm left upper lobe spiculated nodule and a new 4 mm right middle lobe nodule. Patient is advised every visit regarding evaluation of the CT findings. Once again, he voiced that he did not want any repeat CT and does not want any treatment if cancer. He would not be an endobronchial valve candidate until we get a CT that shows stability or improvement - so this is off the table as an option. 12/11/2024 assisted (current) use of inhaled steroids (ICD-10 - Z79.51) He was counseled to rinse/gargle if he continues Trelegy. 12/11/2024 History of tobacco abuse (ICD-10 - Z87.891) Patient quit smoking September of this year. He was allotted for his efforts. He does not meet LDCT screening guidelines because of the abnormal nodules that would need followed up with a diagnostic CT chest. Plan Of Treatment Medication Medication Name Sig Start Date Stop Date Notes Trelegy Ellipta 100-62.5-25 MCG/ACT 1 puff Inhalation Once a day for 90 days 04/24/2024 Albuterol Sulfate HFA 108 (90 Base) MCG/ACT 2 puffs as needed for SOB Inhalation Q4H for 30 days Prevnar 20 0.5 ML as directed Intramus cular once for 1 12/11/2024 Arexvy 120 MCG/0.5ML as directed Intramu scular once for 1 days 12/11/2024 Boostrix 5-2.5-18.5 LF-MCG/0.5 as directed Intramuscular once for 1 days 12/11/2024 Treatment Notes Assessment Notes Centrilobular emphysema He is doing better now that he uses Trelegy on a daily basis, along with albuterol before activity. Denies any adverse reactions. Reviewed options for him. Majority of them would require repeat testing, which he does not want to do. -Pulmonary rehabilitation (never participated) -Ohtuvayre -Dupixent (needs labs for eosinophils) -Endobronchial valves (would need to document stability or improvement in suspicious nodules, which he refused further testing) -O2 (needs full testing - 6MW, nocturnal) -Prolastin for [place] (unclear if he would qualify - needs PFT, possible repeat level testing) Despite all these options, he voiced he did not want to repeat testing at this time and will hold off on any of these. He states he will go home and discuss with his options. Continue Trelegy & albuterol for now. Hypoxemia SpO2 88% today. Patient asked if supplemental O2 would make him feel better. Answered that O2 is one of the few things we have that can improve mortality in COPD, for those who need it. Recommended comprehensive study to assess his complete O2 needs. Patient then stated that he did not want any w/up for it. I stressed that supplemental O2 could improve his dyspnea, but he once again denied any further w/up. AAT (itcbg-2-pbpowvsjjvy) deficiency Genotype M/I: The I allele is produced in normal amounts, but its function is ineffective. Discussed consideration of augmentation therapy - would recheck PFT to see if any decline +/- retesting level. Patient refused this option today. Encounter for immunization Discussed pulmonary-related vaccines today which involved shared clinical decision-making with the patient. -Influenza: Annual influenza vaccination is recommended. Explained that influenza can sometimes be fatal, especially in patients with underlying lung disease. Influenza vaccination is recommended for all people. Patient refused. -Pneumococcal: Reviewed the patient's pneumococcal vaccination record. The CDC currently recommends PCV-20 vaccination regardless of past pneumococcal vaccinations. Prevnar 20 prescribed. -Respiratory Syncytial Virus (RSV): RSV vaccination is recommended for adults 60+, especially patients with respiratory comorbidities. The RSV vaccine is indicated for this patient. Arexvy prescribed. -Tdap: This was discussed due to the potential waning immunity of the Pertussis component. The CDC prefers Boostrix as a booster for those age 65+ (though any Tdap vaccine is acceptable). Boostrix prescribed. -COVID-19: This is the most contentious vaccine. There are case reports of serious adverse events with the COVID-19 vaccines. There are risks with gelacio COVID-19 as well, with the potential for . I explained that the CDC recommends vaccination with boosters and I deferred the choice to the patient. Patient refused. Multiple pulmonary nodules History: Patient's had a history of waxing and waning nodules. Most recently on chest CT 07/05/2023, and a new 1.1 x 0.9 cm left upper lobe spiculated nodule and a new 4 mm right middle lobe nodule. Patient is advised every visit regarding evaluation of the CT findings. Once again, he voiced that he did not want any repeat CT and does not want any treatment if cancer. He would not be an endobronchial valve candidate until we get a CT that shows stability or improvement - so this is off the table as an option. assisted (current) use of i nhaled steroids He was counseled to rinse/gargle if he continues Tregy. History of tobacco abuse Patient quit smoking September of this year. He was allotted for his efforts. He does not meet LDCT screening guidelines because of the abnormal nodules that would need followed up with a diagnostic CT chest. Next Appt Details Follow Up: 6 Months, Reason: COPD Procedure Notes * Category Sub-Category Detail Notes PFT Data: 03/18/2020-FEV1/F VC: 40%-FEV1: 62%-FVC: 116%-Bronchodilator response: None-RV: 160%-T%-DLCO: 43%-Flow-volume loop: Severe obstructive pattern Alpha-1 Antitrypsin Screening Date: 03/27/2020 Genotype: M/I Confirmatory Date: 04/16/2020 Level: 122.7 mg/dL Progress Notes * Pawan BUSTILLO LDOB:1955 (69 yo M)Acc No.[id number]:12/11/2024 Follow Up Patient: Pawan JENKINS Provider: Tino Cruz DO :1955 A ge:69 Y S ex:Male Date:12/11/2024 Address:[address] [place], [place] [id number] Pcp:Nakia Rascon Check In:02:54 PM ESTCheck O ut:03:31 PM EST Subjective: * Chief Complaints: * 2 mos F/U * HPI: G eneral: Patient is recovering from recent bronchitis. He is completing a Z-Jhonatan. He had difficulty breathing, especially at night, but feels that he is finally getting over it. Since last visit, he has returned to [facility] and takes it every day as instructed. He voiced he can tell an improvement in is breathing. He is also using albuterol before activities and that has also helped relieve dyspnea with exertion, though the duration is limited - explained that albuterol is short acting, so that is not surprising. He is asking about respiratory vaccines - had lengthy discussion regarding them. SpO2 88% on RA today. Discussed testing for supplemental O2. MA Intake Comments:. Patient presents for a follow-up for COPD. Patient denies tobacco use today. Patient was recently sick with Bronchitis and was treated with ABX/Steroids by his PCP. Patient states his breathing is unchanged since his last visit. Patient is using Trelegy daily with benefit. Patient reports rare albuterol use. Patient is asking about vaccines that he should get. Patient is under the care of [facility] Cardiology. * ROS: G eneral/Constitutional: Fever or sweats d enies. C hange of appetite d enies. C hills d enies. W eight Change d enies. H EENT: Dry mouth d enies. S ore throat d enies. O ral Ulcers d enies. P ost Nasal Drip D enies. C ongestion D enies. H oarseness?Denies. C ardiovascular: Tachycardia d enies. C hest pain d enies. P alpitations d enies. R espiratory: Pleurisy D enies. D yspnea e xertion/activity. C ough d enies. H emoptysis d enies. W heezing d enies. G astrointestinal: Acid Reflux/GERD/Heartburn c ontrolled. D ysphagia o ccasional regurgitation. M usculoskeletal: Arthralgias/joint pain D enies. S kin: Easy bruising d enies. N eurologic: Seizures d enies. T remor d enies. H ematology: Abnormal Bleeding d enies. P sychiatric: Anxiety d enies. * Active Problem List K21.9 GERD (gastroesophage al reflux disease) Modified On:06/29/2023W/U Status:confirmed R91.8 Multiple pulmonary n odules Modified On:06/29/2023W/U Status:confirmed Z87.891 History of tobacco a buse Modified On:06/27/2024W/U Status:confirmed E88.01 AAT (ljdve-1-wspwwjz psin) deficiency Modified On:06/29/2023W/U Status:confirmed J43.2 Centrilobular emphys wicho Modified On:08/02/2023W/U Status:confirmed Z79.51 assisted (current) use of inhaled steroids Modified On:12/11/2024W/U Status:confirmed * Medical History: * Surgical History: H ernia Repair Cardiac Catheterization coronary artery bypass graft vascular stent Shoulder Surgery-Left * Hospitalization/Major Diagno stic Procedure: D enies Past Hospitalization * Family History: F ather: diagnosed with Unspecified heart disease. M other: diagnosed with Unspecified heart disease. B rother(s): diagnosed with Unspecified heart disease. S ister(s): diagnosed with Unspecified heart disease. * Social History: T obacco Use: T obacco Control (Standard) T obacco use: F ormer smoker A dditional Findings: Tobacco non-user E x-heavy cigarette smoker (20-30/day) Electronic Cigarette use C urrent user N o LM: Additional Tobacco Questions N umber of Years Pt Smoked: 5 5 N umber of Packs per Day: 1 When did you stop smokin09/2023. 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 D rugs/Alcohol: D rugs H ave you used drugs other than those for medical reasons in the past 12 months? N o D oes the Patient have a History of Drug Abuse in the Past? N o Caffeine I ntake: 2 -3 cups per day Coffee Do you drink alcohol?: Yes, Socially. Do you smoke marijuana?: Denies. * Medications: T akingAlbuterol Sulfate HFA 108 (90 Base) MCG/ACT Aerosol Solution 2 puffs as needed for SOB Inhalation Q4H Azithromycin 250 MG Tablet TAKE 2 TABLETS BY MOUTH TODAY, THEN TAKE 1 TABLET DAILY FOR 4 DAYS DIRECTED Oral Ezetimibe 10 MG Tablet Oral Lisinopril 10 MG Tablet Oral Metoprolol Succinate ER 25 MG Tablet Extended Release 24 Hour Oral Nitroglycerin 0.4 MG Tablet Sublingual Sublingual predniSONE 20 MG Tablet Oral Simvastatin 40 MG Tablet Oral Tamsulosin HCl 0.4 MG Capsule Oral Trelegy Ellipta(Bsshmznzdvx-Iavgfavoh-Oixamc) 100-62.5-25 MCG/ACT Aerosol Powder Breath Activated 1 puff Inhalation Once a day Rinse after useXarelto(Rivaroxaban) 2.5 MG Tablet TAKE 1 TABLET BY MOUTH TWICE A DAY Oral Taking Albuterol Sulfate HFA 108 (90 Base) MCG/ACT Aerosol Solution 2 puffs as needed for SOB Inhalation Q4H Taking Azithromycin 250 MG Tablet TAKE 2 TABLETS BY MOUTH TODAY, THEN TAKE 1 TABLET DAILY FOR 4 DAYS DIRECTED Oral Taking Ezetimibe 10 MG Tablet Oral Taking Lisinopril 10 MG Tablet Oral Taking Metoprolol Succinate ER 25 MG Tablet Extended Release 24 Hour Oral Taking Nitroglycerin 0.4 MG Tablet Sublingual Sublingual Taking predniSONE 20 MG Tablet Oral Taking Simvastatin 40 MG Tablet Oral Taking Tamsulosin HCl 0.4 MG Capsule Oral Taking Trelegy Ellipta(Cpbhtawovej-Akupkzsvl-Vtzcps) 100-62.5-25 MCG/ACT Aerosol Powder Breath Activated 1 puff Inhalation Once a day Rinse after useTaking Xarelto(Rivaroxaban) 2.5 MG Tablet TAKE 1 TABLET BY MOUTH TWICE A DAY Oral DiscontinuedAmoxicillin 500 MG Capsule Oral Stiolto Respimat(Tiotropium [place]-Olodaterol) 2.5-2.5 MCG/ACT Aerosol Solution 2 puffs Inhalation Once a day Medication List reviewed and reconciled with the patientDiscontinued Amoxicillin 500 MG Capsule Oral Discontinued Stiolto Respimat(Tiotropium [place]-Olodaterol) 2.5-2.5 MCG/ACT Aerosol Solution 2 puffs Inhalation Once a day Medication List reviewed and reconciled with the patient * Allergies: N .K.D.A.no[Allergies Verified] Objective: * Vitals: W t:205.0lbs, Ht: 72 in, BP:sittin/85mm Hg, Temp:Forehead:97.1F, HR: 66 /min,71/min, RR:18/min, BMI:27.8Index, Oxygen sat %: Room Air:88 %,Room Air:90%, Ht-cm: 182.88 cm, Wt-k.99 kg. RA Activity/Resting. * Examination: E xam: GENERAL APPEARANCE: A ppears stated age. Skin N ormal. Mouth P ink and moist. Oropharynx M allampati Class II. Trachea M idline. Chest I ncreased A-P Diameter. Respiratory Normal movements and effort. Auscultation B reath sounds remain diminished without wheezes. Cardiac R egular rate and rhythm. Gastrointestinal N ormal. Vascular N o edema. Musculoskeletal N ormal posture. Neurological F ocal, intact. Psychiatric A lert and oriented x3. Mentation/Cognition N ormal. Assessment: * Assessment: 1. C entrilobular emphysema - J43.2 (Primary) 2 . H ypoxemia - R09.02 ? 3 . A AT (mcabj-6-ndkgkhrzwdm) deficiency - E88.01 4 . E ncounter for immunization - Z23 5 . M ultiple pulmonary nodules - R91.8 6 . L sierra term (current) use of inhaled steroids - Z79.51 7 . H istory of tobacco abuse - Z87.891 Plan: * Treatment: 2. H ypoxemia Notes: SpO2 88% today. Patient asked if supplemental O2 would make him feel better. Answered that O2 is one of the few things we have that can improve mortality in COPD, for those who need it. Recommended comprehensive study to assess his complete O2 needs. Patient then stated that he did not want any w/up for it. I stressed that supplemental O2 could improve his dyspnea, but he once again denied any further w/up. 3. A AT (lutqn-6-pyfmstyzdbz) deficiency Notes: Genotype M/I: The I allele is produced in normal amounts, but its function is ineffective. Discussed consideration of augmentation therapy - would recheck PFT to see if any decline +/- retesting level. Patient refused this option today. 4. E ncounter for immunization Start Boostrix Suspension Prefilled Syringe, 5-2.5-18.5 LF-MCG/0.5, as directed, Intramuscular, once, 1 days, 1 ea, Refills 0; S tart Prevnar 20 Suspension Prefilled Syringe, 0.5 ML, as directed, Intramuscular, once, 1, 1, Refills 0; S tart Arexvy Suspension Reconstituted, 120 MCG/0.5ML, as directed, Intramuscular, once, 1 days, 1 ea, Refills 0. Notes: Discussed pulmonary-related vaccines today which involved shared clinical decision-making with the patient. -Influenza: Annual influenza vaccination is recommended. Explained that influenza can sometimes be fatal, especially in patients with underlying lung disease. Influenza vaccination is recommended for all people. Patient refused. -Pneumococcal: Reviewed the patient's pneumococcal vaccination record. The CDC currently recommends PCV-20 vaccination regardless of past pneumococcal vaccinations. Prevnar 20 prescribed. -Respiratory Syncytial Virus (RSV): RSV vaccination is recommended for adults 60+, especially patients with respiratory comorbidities. The RSV vaccine is indicated for this patient. Arexvy prescribed. -Tdap: This was discussed due to the potential waning immunity of the Pertussis component. The CDC prefers Boostrix as a booster for those age 65+ (though any Tdap vaccine is acceptable). Boostrix prescribed. -COVID-19: This is the most contentious vaccine. There are case reports of serious adverse events with the COVID-19 vaccines. There are risks with gelacio COVID-19 as well, with the potential for . I explained that the CDC recommends vaccination with boosters and I deferred the choice to the patient. Patient refused. 5. M ultiple pulmonary nodules Notes: History: Patient's had a history of waxing and waning nodules. Most recently on chest CT 07/05/2023, and a new 1.1 x 0.9 cm left upper lobe spiculated nodule and a new 4 mm right middle lobe nodule. Patient is advised every visit regarding evaluation of the CT findings. Once again, he voiced that he did not want any repeat CT and does not want any treatment if cancer. He would not be an endobronchial valve candidate until we get a CT that shows stability or improvement - so this is off the table as an option. 6. L sierra term (current) use of inhaled steroids Notes: He was counseled to rinse/gargle if he continues Trelegy. 7. H istory of tobacco abuse Notes: Patient quit smoking September of this year. He was allotted for his efforts. He does not meet LDCT screening guidelines because of the abnormal nodules that would need followed up with a diagnostic CT chest. * Procedures: A lpha-1 Antitrypsin: Screening Date: 0 03/27/2020. Genotype: M /I. Confirmatory Date: 0 04/16/2020. Level: 1 22.7 mg/dL. P FT: Data: 03/18/2020 -FEV1/FVC: 40% -FEV1: 62% -FVC: 116% -Bronchodilator response: None -RV: 160% -T% -DLCO: 43% -Flow-volume loop: Severe obstructive pattern. * Procedure Codes: * Preventive Medicine: COVID Vaccination: H as patient had COVID Vaccination? COVID Vaccination Y es 06/09/2021 Immunization Status: P neumovacc P t Refused. I nfluenza P t Refused. Screenings/Counseling: F ALL RISK SCREENING Fall Risk Assessment: O ne fall with injury in the past year Are you afraid of falling? N o T OBACCO ACTION PLAN Patient counselled on the dangers of tobacco use and urged to quit. 0 12/11/2024 Former Cessation counseling provided 0 12/11/2024 Former F JULIENNE EXCLUSION Reason: P atient Reason refused/declined Type of Patient Reason: D rug declined by patient B DE ACTION PLAN Above Normal BMI Follow-up D ietary management education, guidance, and counseling * Follow Up: 6 Months (Reason: COPD) * * Sign off status: Completed Visit Status: C HK (Check Out) true * Provider: Tino Cruz DO Date: 0 12/11/2024 Generated for Jaja ward/Hien/Vivianitting on: 0 03/21/2025 02:07 PM EDT History and Physical Notes * HPI (History of Present Illness) Category Sub-Category Detail Notes Category Not es General Patient present s for a follow-up for COPD. Patient denies tobacco use today. Patient was recently sick with Bronchitis and was treated with ABX/Steroids by his PCP. Patient states his breathing is unchanged since his last visit. Patient is using Trelegy daily with benefit. Patient reports rare albuterol use. Patient is asking about vaccines that he should get. Patient is under the care of [facility] Cardiology. Examination Category Sub-Category Detail Notes Category Not es Exam GENERAL APPEARANCE: Appears stated age Skin Normal Mouth Warba and moist Trachea Midline Chest Increased A-P Diamet er Respiratory Normal movements and effort Auscultation Breath sounds remain diminished without wheezes Cardiac Regular rate and rhy thm Gastrointestinal Normal Vascular No edema Musculoskeletal Normal posture Neurological Focal, intact Psychiatric Alert and oriented x 3 Mentation/Cognition Normal Oropharynx Mallampati Class II
--- OUTSIDE RECORDS SUMMARY | 2025-03-06 07:25 | XMS_ITS ---
Author Organization The [facility] in [place] Address [address] [place] [address] Care Team Providers Care Science Job Titles Name Role Phone Nakia Rascon Primary Care Provider Fareed Alvarado [phone] REASON FOR VISIT Letter/Appointment Encounters Encounter Location Date Provider Diagnosis Pulmonary Medicine [place] [address] [place] [address] 03/06/2025 Fareed Cruz Plan Of Treatment No Information Progress Notes * Pawan BUSTILLO LDOB:1955 (69 yo M)Acc No.[id number]:03/06/2025 Patient: Cam VAUGHN Pawan Hunter :1955 A ge:69 Y S ex:Male Address:[address] [place] [address], [address] * Addendum: * true * Date: Generated for Adryani ed/Hien/eTransmitting on: 0 03/21/2025 02:07 PM EDT
--- OUTSIDE RECORDS SUMMARY | 2025-03-11 10:00 | XMS_ITS | Encounter Summary ---
Author Organization The [facility] Address [address] [place] [address] Care Team Providers Care Order Caller Name Role Phone Nakia Rascon MD Primary Care Provider [phone] Reason for Referral * Imaging (Routine) - Pending Review Specialty Diagnoses / Procedures Referred By Chacha rivas Referred To Contact Cardiology Diagnoses Coronary artery disease involving fond du lac coronary artery of fond [place] heart without angina pectoris Shortness of breath Procedures Transthoracic echo (TTE) complete Juan Cardona MD [address] [place] [address] Phone: tel: fax: Referral ID Status Reason Start Date Expiration Date Visits Requested Visits Authorized [id number] Pending Review Perform Procedure 03/11/2025 03/11/2026 1 1 Encounter Details Date Type Department Care Team (Late st Contact Info) Description 03/11/2025 10:00 AM EDT Office Visit [facility] [address] [place] [address] Juan Cardona MD [address] [place] [address] Coronary artery disease involving fond du lac coronary artery of fond [place] heart without angina pectoris (Primary Dx); Essential hypertension; PAD (peripheral artery disease); Mixed hyperlipidemia; Shortness of breath; Status post insertion of drug eluting coronary artery stent Social History Tobacco Use Types Packs/Day Years Used Date Smoking Tobacco: Former Cigarettes Smokeless Tobacco: Never Tobacco Cessation:Counseling Given: Not Answered Alcohol Use Standard Drinks/Week Comments Not Currently 0 (1 standard drink = 0.6 oz pur e alcohol) moderate [place] Safety & Environment Answer Date Rec orded Fear of Current or Ex-Partner Not on file Emotionally Abused Not on file 09/22/2023 Physically Abused Not on file 09/22/2023 Sexually Abused Not on file 09/22/2023 Physically or Sexually Abused Not on file Sex and Gender Information Value Date Recorded Sex Assigned at Male 11/15/2022 8:56 AM EDT Legal Sex Male 9:50 PM EDT Gender Identity Male 11/15/2022 8:56 AM EDT Sexual Orientation Heterosexual or Straight 10/30 8:56 AM EDT documented as of this encounter Last Filed Vital Signs Vital Sign Reading Time Taken Comments Blood Pressure 137/79 03/11/2025 10:09 AM EDT Pulse 63 03/11/2025 10:09 AM EDT Temperature - - Respiratory Rate - - Oxygen Saturation 94% 03/11/2025 10:09 AM EDT Inhaled Oxygen Concentration - - Weight 90.3 kg (199 lb) 03/11/2025 10:09 AM EDT Height 182.9 cm (6') 03/11/2025 10:09 AM EDT Body Mass Index 26.99 03/11/2025 10:09 AM EDT documented in this encounter Progress Notes * Juan Cardona MD - 03/11/2025 10:00 AM EDT Images from the original note were not included. [place] Cardiology - [facility] Darron Kaplan is a 69 y.o. year old male patient being seen for a 6 month follow up. Patient stateshe feels not to bad. Patient states he always has SOB and MEEKS. Patient denies chest pain, leg swelling, palpitations/heart racing, dizziness/lightheaded. Patient would like to talk about the Metoprolol he feels like its possible worsening his PVD. Patient states he has leg numbness, leg heaviness tingling he feels its this medication could be part of the the problem. Patient Active Problem List Diagnosis Urinary urgency Tobacco dependence syndrome Chronic obstructive pulmonary disease (CMS/HCC) Prostatitis Poor urinary stream Myocardial infarction (CMS/HCC) Increased frequency of urination Incomplete emptying of bladder Hypertensive disorder Hyperlipidemia Glaucoma Fatigue Dyspnea on exertion Current smoker Coronary arteriosclerosis Cardiovascular stress test abnormal Benign prostatic hyperplasia with urinary obstruction Ulxyh-9-rjpplkulxgo deficiency (CMS/HCC) Arthritis Claudication Feeling of incomplete bladder emptying Gastroesophageal reflux disease Internal derangement of left shoulder FCI current use of inhaled steroid Multiple pulmonary nodules Former smoker Peripheral arterial occlusive disease Postoperative acute respiratory failure Family History Problem Relation Name Age of Onset Coronary artery disease Mother Coronary artery disease Sister Coronary artery disease Brother Social History Tobacco Use Smoking status: Former Types: Cigarettes Smokeless tobacco: Never Substance Use Topics Alcohol use: Not Currently Comment: moderate Drug use: Yes Types: Marijuana Comment: couple of times per week HPI He is seen in follow-up. He is a 69-year-old man with history of hypertension, hyperlipidemia, peripheral vascular disease status post bilateral common and external iliac artery stenting in [facility] in May 2021, coronary artery disease status post PCI to the mid LAD in 2015. He is maintained on aspirin and low-dose Xarelto for his PAD and CAD. He is on simvastatin and ezetimibe. He is on metoprolol succinate 25 mg once daily. He quit smoking about 1.5 years ago. Today he reports that his main complaint is shortness of breath with exertion NYHA class II symptoms. He has no leg edema. He has no chest pain. No dizziness or lightheadedness or palpitation. He has a question regarding metoprolol succinate and whether he should take it given his PAD. He does not have rest pain or clear claudication symptoms. He does have occasional tingling sensation in the legs. Review of Systems Cardiovascular: Positive for dyspnea on exertion. Respiratory: Positive for shortness of breath. Objective Visit Vitals BP 137/79 (BP Location: Left arm, Patient Position: Sitting) Pulse 63 Ht 1.829 m (6') Wt 90.3 kg (199 lb) SpO2 94% BMI 26.99 kg/m?? Smoking Status Former BSA 2.14 m?? Physical Exam Constitutional: Appearance: He is well-developed. He is not ill-appearing. HENT: Head: Normocephalic and atraumatic. Nose: Nose normal. Eyes: General: No scleral icterus. Pupils: Pupils are equal, round, and reactive to light. Neck: Thyroid: No thyromegaly. Vascular: No JVD. Cardiovascular: Rate and Rhythm: Normal rate and regular rhythm. Pulses: Radial pulses are 2+ on the right side and 2+ on the left side. Posterior tibial pulses are 2+ on the right side and 2+ on the left side. Heart sounds: Normal heart sounds. No murmur heard. No friction rub. No gallop. Pulmonary: Effort: Pulmonary effort is normal. No respiratory distress. Breath sounds: Normal breath sounds. No wheezing or rales. Chest: Chest wall: No tenderness. Abdominal: General: Bowel sounds are normal. There is no distension. Palpations: Abdomen is soft. Tenderness: There is no abdominal tenderness. Musculoskeletal: General: No swelling. Cervical back: Neck supple. Skin: General: Skin is warm and dry. Neurological: General: No focal deficit present. Mental Status: He is alert and oriented to person, place, and time. Psychiatric: Mood and Affect: Mood normal. Behavior: Behavior is cooperative. Judgment: Judgment normal. Allergies No Known Allergies Medications Current Outpatient Medications: albuterol 90 mcg/actuation inhaler, Inhale 2 puffs every 4 (four) hours if needed., Disp: , Rfl: aspirin 81 mg EC tablet, Take 81 mg by mouth in the morning., Disp: , Rfl: ezetimibe (Zetia) 10 mg tablet, TAKE 1 TABLET BY MOUTH EVERY DAY IN THE MORNING, Disp: 90 tablet, Rfl: 3 bmmfksouisq-qiitygkup-nrylthhg (Trelegy Ellipta) 100-62.5-25 mcg blister with device, Inhale 1 puffin the morning., Disp: , Rfl: lisinopril 10 mg tablet, Take 10 mg by mouth in the morning., Disp: , Rfl: metoprolol succinate XL (Toprol-XL) 25 mg 24 hr tablet, Take 1 tablet (25 mg) by mouth once daily as directed. Do not crush or chew., Disp: 90 tablet, Rfl: 3 nitroglycerin (Nitrostat) 0.4 mg SL tablet, Place 0.4 mg under the tongue every 5 (five) minutes ifneeded for chest pain. May repeat times 3 doses as needed for chest pain, Disp: , Rfl: prednisoLONE acetate (Pred-Forte) 1 % ophthalmic suspension, 1 drop four times daily., Disp: , Rfl: simvastatin (Zocor) 40 mg tablet, Take 40 mg by mouth at bedtime., Disp: , Rfl: tamsulosin (Flomax) 0.4 mg 24 hr capsule, Take 0.4 mg by mouth in the morning., Disp: , Rfl: valACYclovir (Valtrex) 500 mg tablet, Take 500 mg by mouth two times daily., Disp: , Rfl: Xarelto 2.5 mg tablet, Take 2.5 mg by mouth in the morning and at bedtime., Disp: , Rfl: nicotine (Nicoderm CQ) 7 mg/24 hr patch, Place 1 patch on the skin 1 (one) time each day at the same time. (Patient not taking: Reported on 03/11/2025), Disp: 30 patch, Rfl: 0 Recent Labs No visits with results within 6 Month(s) from this visit. Latest known visit with results is: Admission on 11/15/2022, Discharged on 11/15/2022 Component Date Value Sodium 11/01/2022 139 Potassium 11/01/2022 4.7 Chloride 11/01/2022 100 BUN, Bld 11/01/2022 19 Creatinine 11/01/2022 1.01 Glucose, Bld 11/01/2022 109 WHITE BLOOD CELL COUNT 11/01/2022 15.8 Hemoglobin 11/01/2022 15.1 Hematocrit 11/01/2022 47.6 Platelets 11/01/2022 190 Ventricular Rate 11/15/2022 98 Atrial Rate 11/15/2022 98 CA Interval 11/15/2022 152 QRS DURATION 11/15/2022 86 QT Interval 11/15/2022 322 QTC CALCULATION(BAZETT) 11/15/2022 411 P [place] 11/15/2022 82 R-[place] 11/15/2022 81 T Wave [place] 11/15/2022 70 Blood testing 05/09/2024: Hemoglobin 17.1, platelets 154, potassium 4.6, BUN 14, creatinine 1.01, EGFR more than 60, LFTs normal, triglycerides 61, cholesterol 112, LDL 50.8, HDL 49. Imaging and other tests ECG 11/15/2022: Normal sinus rhythm Normal ECG Coronary angiography: 10/21/2022 Final Impression: 1) The LAD stent is patent. 2) Moderate CAD in the circumflex and elsewhere, appropriate for medical therapy 3) The RCA has a chronic total occlusion (ROCK WOOL INSULATOR), however it is a small vessel and is supplied by collaterals, so only medical therapy is required Plan: 1) optimal med therapy for CAD 2) Aspirin 81 mg daily, metoprolol ER, and high intensity statin therapy for long-term management of CAD 3) add metoprolol ER 25 mg daily if he has not already taking this medication 4) start ezetimibe 10 mg daily for additional LDL lowering 5) start Chantix to assist with smoking cessation. Importance of smoking cessation was explained tothe patient he agreed to try Chantix and try to quit smoking 6) Patient has been on long-term dual antiplatelet therapy with aspirin and prasugrel for multiple years. His last coronary stent was in 2015. Okay to stop prasugrel. Continue aspirin 81 mg daily antiplatelet monotherapy for CAD. 7) Patient is cleared to proceed with procedures or surgeries. Echocardiogram: 10/11/2022 Left Ventricle: Left ventricle appears normal in size. Wall thickness is normal. Systolic function is low normal to mildly decreased with an ejection fraction of 50-55%. See wall score diagram for wall motion abnormalities. Grade I diastolic dysfunction (impaired relaxation) is present. Lateral E' is 10.10 cm/s. Medial E' is 7.18 cm/s. Right Ventricle: Right ventricular size appears normal. The right ventricular basal diameter is 37.0 mm. Systolic function is normal. Left Atrium: Left atrium is normal in size. The left atrial volume index is 28.3 mL/m2. Right Atrium: Right atrium is normal in size. The right atrial area is 13.7 cm2. IVC/SVC: IVC appears normal. Mitral Valve: The leaflets are mildly thickened. There is trace regurgitation. There is no evidenceof mitral valve stenosis. Tricuspid Valve: Tricuspid valve appears to be normal. There is trace regurgitation. There is no evidence of tricuspid valve stenosis. The right ventricular systolic pressure normal. Aortic Valve: Probable trileaflet aortic valve. There is trace regurgitation. There is no evidence of aortic valve stenosis. Pulmonic Valve: The pulmonic valve was not well visualized. There is no evidence of pulmonic valve stenosis. Ascending Aorta: The aortic root is normal in size. Pericardium: There is no pericardial effusion. Lower extremity angiogram: 05/21/2021 ([facility]) 1. Ultrasound-guided puncture right common femoral artery and placement of 7 Pal[place] 23 cm sheath 2. Ultrasound-guided puncture left common femoral artery and placement of a 7 Palauan 23 cm sheath 3. Aortoiliac arteriogram 4. Primary balloon angioplasty and stent placement right common iliac artery using a VBX 8 mm x 39 mm and VBX 8 mm x 29 mm stents 5. Primary balloon angioplasty and stent placement to left common iliac artery using VBX 8 mm x 39 mm stent 6. Angioplasty right external iliac artery using a 7 mm x 60 mm balloon 7. Primary balloon angioplasty left external iliac artery to 8 mm 8. Minx closure right and left common femoral artery puncture sites Coronary angiography: 06/09/2019 Patent stent in mid left anterior descending coronary artery Mild to moderate disease of the proximal left anterior descending and mid to distal left circumflexcoronary arteries Severe disease of small nondominant right coronary artery Extensive coronary calcification and calcification in the right iliac arterial system Lexiscan Cardiolite stress test: 05/29/2019 Myocardial perfusion study shows evidence of ischemia Abnormal myocardial perfusion study There is moderate size moderate intensity perfusion defect seen at rest and stress and apical wall suggestive of infarct with moderate endy-infarct ischemia Hypokinesia of the distal anterior wall Ejection fraction is normal 66% No 3 times daily No ECG ischemic changes seen Coronary angiography: 11/25/2015 Selective coronary angiography FFR assessment of LAD Balloon angioplasty, LAD Drug-eluting stent placement of LAD Intracoronary nitroglycerin Echocardiogram: 11/19/2015 Left ventricle: Normal chamber size. Normal left ventricular wall thickness. No ventricular outflowobstruction. Normal left ventricular ejection fraction 60%. Grade 1 diastolic dysfunction Atrial septum: Intact atrial septum Left atrium: Normal chamber size Right atrium: Normal chamber size Right ventricle: Mildly dilated with normal systolic function Tricuspid valve: Normal mobility and thickness. Trace regurgitation. Mitral valve: Normal mobility and thickness. Trace mitral regurgitation. Aortic valve: Normal aortic valve. No aortic regurgitation. Aortic root: Normal diameter and appearance. Pulmonic valve: Normal thickness and mobility. Trace regurgitation. Pericardium: No evidence of pericardial effusion IVC: Collapses with inspiration Assessment/Plan Diagnoses and all orders for this visit: Coronary artery disease involving fond du lac coronary artery of fond du lac heart without angina pectoris - Transthoracic echo (TTE) complete; Future Essential hypertension PAD (peripheral artery disease) Mixed hyperlipidemia Shortness of breath - Transthoracic echo (TTE) complete; Future Status post insertion of drug eluting coronary artery stent 1. CAD, status post stenting of the LAD in 2015 with cardiac catheterization in 2022 showing patentstent and moderate circumflex disease and chronic occlusion of a nondominant RCA: No clear angina. He does have shortness of breath on exertion. It could be related to his lung disease from prior smoking. He follows with pulmonary. I am going to check an echocardiogram to follow-up on ventricular function and rule out any structural cardiac abnormality responsible for the shortness of breath especially given his prior history. Meanwhile continue simvastatin and ezetimibe. His prior lipid panel in 2023 showed adequate control. He will get regular blood testing with his PCP towards the end of the year. 2. PAD status post bilateral iliac stenting in 2020: His exam today shows very good pulses in the posterior tibialis arteries bilaterally. I reassured him. I think the tingling in the legs is not related to vascular insufficiency. We also had a discussion regarding metoprolol and PAD. He is on low-dose metoprolol which I think he should continue given his cardiac condition. I reassured him that this would not be causing any worsening of his PAD. 3. Hypertension: Mildly elevated blood pressure today, usually well-controlled. Continue metoprololsuccinate and lisinopril. If the echocardiogram shows no significant abnormalities, I will plan on seeing him in follow-up in1 year. He will get regular blood testing with his PCP and I asked that those be forwarded to me. Follow up in about 1 year (around 03/11/2026). Juan Cardona MD documented in this encounter Plan of Treatment Scheduled Orders Name Type Priority Associated Diagnoses Order Schedule Transthoracic echo (TTE) complete Echocardiography Routine Coronary artery disease involving fond du lac coronary artery of fond du [place] heart without angina pectoris Shortness of breath Expected: 03/11/2025 (Approximate), Expires: 03/11/2027 documented as of this encounter Visit Diagnoses Diagnosis Coronary artery disease involving fond du lac coronary artery of fond du lac heart without angina pectoris- Primary Essential hypertension Unspecified essential hypertension PAD (peripheral artery disease) Unspecified peripheral vascular disease Mixed hyperlipidemia Shortness of breath Status post insertion of drug eluting coronary artery stent documented in this encounter Care Teams Order Caller Relationship Specialty Start Date End Date Nakia Rascon MD [address] [facility] PCP - General 09/27/22 documented as of this encounter
--- OUTSIDE RECORDS SUMMARY | 2025-03-13 06:00 | XMS_ITS ---
Author Organization The [facility] in [place] Address [address] [place] [address] Care Team Providers Care Diamond Sizer Name Role Phone Nakia Rascon Primary Care Provider Fareed Alvarado [phone] REASON FOR VISIT 3m F/U - COPD Encounters Encounter Location Date Provider Diagnosis Pulmonary Medicine [place] [address] [place] [address] 03/13/2025 Fareed Cruz Plan Of Treatment No Information Progress Notes * Pawan BUSTILLO LDOB:1955 (69 yo M)Acc No.[id number]:03/13/2025 UNLOCKED PROGRESS NOTE Follow Up Patient: Pawan JENKINS Provider: Tino Cruz DO :1955 A ge:69 Y S ex:Male Date:03/13/2025 Address:[address] [place], [place] [address] Pcp:Nakia Rascon Subjective: * Chief Complaints: * 1 . 3m F/U - COPD. * Medical History: Objective: * Vitals: Assessment: Plan: * Treatment: * * Electronic signature of Christina Cruz DO on 03/21/2025 at 02:07 PM EDT Sign off status: Pending Visit Status: O FF CANC (OFFICE CANCEL) * Provider: Tino rCuz DO Date: 03/13/2025 Generated for Printi ng/Faxing/eTransmitting on: 03/21/2025 02:07 PM EDT
--- OUTSIDE RECORDS SUMMARY | 2025-03-21 14:07 | XMS_ITS | Encounter Summary ---
Author Organization The [facility] Address [address] [place] [address] Care Team Providers Care Detailer [employer] Name Role Phone Nakia Rascon MD Primary Care Provider [phone] Encounter Details Date Type Department Care Team (Late st Contact Info) Description 05/18/2023 Abstract [facility] [address] [place] [address] Nakia Rascon MD [address] [facility] [address] Social History Tobacco Use Types Packs/Day Years Used Date Smoking Tobacco: Every Day Cigarettes Smokeless Tobacco: Never Alcohol Use Standard Drinks/Week Comments Yes 0 (1 standard drink = 0.6 oz pur e alcohol) moderate Sex and Gender Information Value Date Recorded Sex Assigned at Male 11/15/2022 8:56 AM EDT Legal Sex Male 9:50 PM EDT Gender Identity Male 11/15/2022 8:56 AM EDT Sexual Orientation Heterosexual or Straight 10/30 8:56 AM EDT documented as of this encounter Plan of Treatment Not on file documented as of this encounter Visit Diagnoses Not on filedocumented in this encounter Care Teams Detailer [employer]aceuticals Relationship Specialty Start Date End Date Nakia Rascon MD [address] [facility]A PCP - General 09/27/22 documented as of this encounter
--- OUTSIDE RECORDS SUMMARY | 2025-03-21 14:07 | XMS_ITS | Clinical Summary ---
Author Organization [facility] Address [address] [place] [address] Care Team Providers Care Overage Shortage And Damage Clerk Name Role Phone Nakia Rascon MD Primary Care Provider [phone] Allergies No known active allergies Medications tamsulosin (Flomax) 0.4 mg 24 hr capsule Take 0.4 mg by mouth in the morning. Active simvastatin (Zocor) 40 mg tablet Take 40 mg by mouth at bedtime. Active nitroglycerin (Nitrostat) 0.[address] 0.4 mg under the tongue every 5 (five) minutes if needed for chest pain. May repeat times 3 doses as needed for chest pain Active lisinopril 10 mg tablet Take 10 mg by mouth in the morning. Active aspirin 81 mg EC tablet Take 81 mg by mouth in the morning. Active albuterol 90 mcg/actuation inhaler Inhale 2 puffs every 4 (four) hours if needed. Active fluticasone-umecl idin-vilanter (Trelegy Ellipta) 100-62.5-25 mcg blister with device Inhale 1 puff in the morning. Active nicotine (Nicoderm CQ) 7 mg/24 hr patchIndications: Tobacco dependency Place 1 patch on the skin 1 (one) time each day at the same time. 30 patch Active Additional Information Patient not taking.Reported on 03/11/2025 Xarelto 2.5 mg tablet Take 2.5 mg by mouth in the morning and at bedtime. Active metoprolol succinate XL (Toprol-XL) 25 mg 24 hr tabletIndications :Coronary artery disease involving clark's point coronary artery of clark[place] heart without angina pectoris,PAD (peripheral artery disease) Take 1 tablet (25 mg) by mouth once daily as directed. Do not crush or chew. 90 tablet 3 024 Active ezetimibe (Zetia) 10 mg tabletIndications :Mixed hyperlipidemia TAKE 1 TABLET BY MOUTH EVERY DAY IN THE MORNING 90 tablet 3 025 Active valACYclovir (Valtrex) 500 mg tablet Take 500 mg by mouth two times daily. 025 Active prednisoLONE acetate (Pred-Forte) 1 % ophthalmic suspension 1 drop four times daily. Active ezetimibe (Zetia) 10 mg tabletIndications :Mixed hyperlipidemia Take 1 tablet (10 mg) by mouth in the morning. 90 tablet 3 024 2024 Discontinued Active Problems Problem Noted Date Diagnosed Date Former smoker 03/09/2024 Peripheral arterial occlusive disease 03/09/2024 Postoperative acute respiratory failure 03/09/20 24 Khajm-2-qcrpggeeoqx deficiency 09/09/2023 0 09/09/2023 Arthritis 09/09/2023 09/09/2023 Feeling of incomplete bladder emptying 09/09/2023 Gastroesophageal reflux disease 09/09/2023 09/09/2023 skilled nursing current use of inhaled steroid 024 09/09/2023 Multiple pulmonary nodules 09/09/202309/09 Claudication 12/06/2022 09/09/2023 Internal derangement of left shoulder 12/06/2022 09/09/2023 Urinary urgency 09/27/2022 Tobacco dependence syndrome 09/27/2022 Chronic obstructive pulmonary disease 09/27/2022 Prostatitis 09/27/2022 Poor urinary stream 09/27/2022 Myocardial infarction 09/27/2022 Increased frequency of urination 09/27/2022 Incomplete emptying of bladder 09/27/2022 Hypertensive disorder 09/27/2022 Hyperlipidemia 09/27/2022 Glaucoma 09/27/2022 Fatigue 09/27/2022 Dyspnea on exertion 09/27/2022 Current smoker 09/27/2022 Overview (09/27/2022): Added secondary to documentation in Social History. Coronary arteriosclerosis 09/27/2022 Cardiovascular stress test abnormal 09/27/2022 Benign prostatic hyperplasia with urinary obstru ction 09/27/2022 Encounters Date Type Department Care Team Description 03/11/2025 10:00 AM EDT Office Visit [facility] [address] [place] [address] Juan Cardona MD Coronary artery disease involving clark[place] point coronary artery of [place] heart without angina pectoris (Primary Dx); Essential hypertension; PAD (peripheral artery disease); Mixed hyperlipidemia; Shortness of breath; Status post insertion of drug eluting coronary artery stent 03/02/2025 Refill [facility] [address] [place] [address] Adiel Moran MD Mixed hyperlipidemia from Last 3 Months Family History Medical History Relation Name Comments Coronary artery disease Brother Coronary artery disease Mother Coronary artery disease Sister Relation Name Status Comments Brother Father Mother Sister Social History Tobacco Use Types Packs/Day Years Used Date Smoking Tobacco: Former Cigarettes Smokeless Tobacco: Never Tobacco Cessation:Counseling Given: Not Answered Alcohol Use Standard Drinks/Week Comments Not Currently 0 (1 standard drink = 0.6 oz pur e alcohol) moderate [place] Safety [employer] Environment Answer Date Rec orded [...] Heterosexual or Straight 10/30 8:56 AM EDT Last Filed Vital Signs Vital Sign Reading Time Taken Comments Blood Pressure 137/79 03/11/2025 10:09 AM EDT Pulse 63 03/11/2025 10:09 AM EDT Temperature - - Respiratory Rate 17 11/15/2022 12:29 PM EDT Oxygen Saturation 94% 03/11/2025 10:09 AM EDT Inhaled Oxygen Concentration - - Weight 90.3 kg (199 lb) 03/11/2025 10:09 AM EDT Height 182.9 cm (6') 03/11/2025 10:09 AM EDT Body Mass Index 26.99 03/11/2025 10:09 AM EDT Plan of Treatment Health Maintenance Due Date Last Done Comments CT Colonography 1955 Colonoscopy 1955 Colorectal Cancer Screening 1955 FIT-DNA 1955 FIT 1955 FOBT 1955 Medicare Annual Wellness (AWV) 1955 Sigmoidoscopy 1955 Depression Screening 1967 Pneumococcal Vaccine: 50+ Years (1 of 2 - PCV) 11/26/1974 Zoster Vaccines (1 of 2) 11/26/2005 Adult Tetanus 01/22/2007 01/22/1997 Fall Risk Screening 11/26/2020 COVID-19 Vaccine (2023-2 5 season) 2024 06/09/2021, 10/28/2020, 10/06/2020 Influenza Vaccine (#1) 2025 HIB Vaccines Aged Out No longer eligi ble based on patient's age to complete this topic HPV Vaccines Aged Out No longer eligi ble based on patient's age to complete this topic IPV Vaccines Aged Out No longer eligi ble based on patient's age to complete this topic Meningococcal B Vaccine Aged Out No l onger eligible based on patient's age to complete this topic Meningococcal Vaccine Aged Out No bassam leslye eligible based on patient's age to complete this topic Rotavirus Vaccines Aged Out No longer eligible based on patient's age to complete this topic Insurance [facility] MEDICARE Care Teams Overage Shortage And Damage Clerk Relationship Specialty Start Date End Date Nakia Rascon MD [address] [facility] [address] PCP - General 09/27/22
--- OUTSIDE RECORDS SUMMARY | 2025-03-21 14:07 | XMS_ITS | Clinical Summary ---
Author Organization [facility] Address [address] [place] [address] Care Team Providers Care Gas Roller Operator Name Role Phone Nakia Rascon MD Primary Care Provider [phone] Medications varenicline (Chantix) 0.5 MG tablet Chantix Active Fluticasone-Ume clidin-Vilant (Trelegy Ellipta) 100-62.5-25 MCG/INH aerosol powder 1 puff 1 (one) time each day at the same time. Active albuterol HFA (Ventolin HFA) 90 mcg/act inhaler every 4 (four) hours. Active aspirin (Noman Low Dose) 81 MG EC tablet 1 (one) time each day at the same time. Active lisinopril 10 MG tablet 1 (one) time each day at the same time. Active simvastatin (Zocor) 40 MG tablet 1 (one) time each day at the same time. Active ezetimibe (Zetia) 10 MG tablet Take 10 mg by mouth in the morning. Active metoprolol succinate XL (Toprol-XL) 25 MG 24 hr tablet Take by mouth. Do not crush or chew. Active tamsulosin (Flomax) 0.4 MG 24 hr capsule Take 0.4 mg by mouth in the morning. Active nitroglycerin (NitrolinguaL) 0.4 MG/SPRAY spray Place 1 spray under the tongue every 5 (five) minutes if needed for chest pain. Active Active Problems Problem Noted Date Diagnosed Date Claudication 12/06/2022 Internal derangement of left shoulder 12/06/2022 Family History Medical History Relation Name Comments Diabetes Father Heart disease Father Heart disease Mother Relation Name Status Comments Father Mother Social History Tobacco Use Types Packs/Day Years Used Date Smoking Tobacco: Every Day Cigarettes Tobacco Cessation:Ready to Q uit: Not Asked; Counseling Given: Not Answered Comments:Smokes 6-10 cigarettes/day Alcohol Use Standard Drinks/Week Comments Yes 0 (1 standard drink = 0.6 oz pur e alcohol) Sex and Gender Information Value Date Recorded Sex Assigned at Not on file Legal Sex Male 6:49 PM EDT Gender Identity Not on file Sexual Orientation Not on file Last Filed Vital Signs Vital Sign Reading Time Taken Comments Blood Pressure - - Pulse - - Temperature - - Respiratory Rate - - Oxygen Saturation - - Inhaled Oxygen Concentration - - Weight 83.9 kg (185 lb) 11/18/2022 12:00 PM EDT Height 180.3 cm (5' 11 ) 11/18/2022 12:00 PM EDT Body Mass Index 25.8 11/18/2022 12:00 PM EDT Plan of Treatment Health Maintenance Due Date Last Done Comments CT Colonography 1955 Colonoscopy 1955 Colorectal Cancer Screening 1955 FIT-DNA 1955 FIT 1955 FOBT 1955 Sigmoidoscopy 1955 Pneumococcal Vaccine: 65+ Years (1 of 1 - PCV) 006 Influenza Vaccine (#1) 2025 Insurance [employer] Care Teams Gas Roller Operator Relationship Specialty Start Date End Date Nakia Rascon MD PCP - General Family Medicine 12/30/22
--- OUTSIDE RECORDS SUMMARY | 2025-03-21 14:07 | XMS_ITS | Encounter Summary ---
Author Organization [facility] Address [address] [place] [address] Care Team Providers Care Direct Support Professional Home Health Name Role Phone Nakia Rascon MD Primary Care Provider [phone] Encounter Details Date Type Department Care Team (Late st Contact Info) Description 01/28/2023 Abstract [facility] [address] [place] [address] Crescencio Alicia, BILLY [address] [place] [address] Social History Tobacco Use Types Packs/Day Years [...] on file Sexual Orientation Not on file documented as of this encounter Plan of Treatment Not on file documented as of this encounter Visit Diagnoses Not on filedocumented in this encounter Care Teams Direct Support Professional Home Health Relationship Specialty Start Date End Date Nakia Rascon MD PCP - General Family Medicine 12/30/22 documented as of this encounter
--- OUTSIDE RECORDS SUMMARY | 2025-03-21 14:08 | XMS_ITS | Patient Health Record ---
Author Organization [facility] [place] Address [address] [place] [address] Care Team Providers Care Metal Furniture Repairer Name Role Phone Nakia Rascon Primary Care Provider Fareed Alvarado Unavailable [phone] Allergies No Known Allergies Reason For Referral No Information Medications Medication SIG (Take, Route, Frequency, Duration) Notes Start Date End Date Status Trelegy Ellipta 100-62.5-25 MCG/ACT 1 puff Inhalation Once a day for 90 days Rinse after use 04/24/2024 Active Prevnar 20 0.5 ML as directed Intramus cular once for 1 12/11/2024 Active Arexvy 120 MCG/0.5ML as directed Intramu scular once for 1 days 12/11/2024 Active Tamsulosin HCl 0.4 MG Oral for 90 Days Active Simvastatin 40 MG Oral for 90 Days Active predniSONE 20 MG Oral for 5 Days Active Albuterol Sulfate HFA 108 (90 Base) MCG/ACT 2 puffs as needed for SOB Inhalation Q4H for 30 days Activ e Nitroglycerin 0.4 MG Sublingual for 30 Days Active Metoprolol Succinate ER 25 MG Oral for 90 Days Active Lisinopril 10 MG Oral for 90 Days Active Ezetimibe 10 MG Oral for 90 Days Active Azithromycin 250 MG TAKE 2 TABLETS BY MO UTH TODAY, THEN TAKE 1 TABLET DAILY FOR 4 DAYS DIRECTED Oral for 5 Days Active Xarelto 2.5 MG TAKE 1 TABLET BY KAL TH TWICE A DAY Oral for 30 Days Active Boostrix 5-2.5-18.5 LF-MCG/0.5 as directed Intramuscular once for 1 days 12/11/2024 Active Immunizations Vaccine Route Administration Date Status Comme nts SARS-COV-2 (COVID 19 Pfizer 30mcg/0.3mL) Unknown 06/09/2021 Administered Social History Tobacco Use: Social History Observation Description Date Details (start date - stop date) Former Smoker NA - NA Tobacco Control (Standard) Question Answer Notes Tobacco use: Former smoker Additional Findings: Tobacco non-user Ex-heavy c igarette smoker (20-30/day) Problems Problem Type SNOMED Code ICD Code Onset Dates Problem Status W/U Status Risk Notes Problem Centrilobular emphysema (43283498) Centrilobular emphysema (J43.2) Active confirmed Problem Long-term current use of inhaled steroid (771742797) USP (current) use of inhaled steroids (Z79.51) Active confirmed Problem Gastroesophageal reflux disease (146039430) GERD (gastroesophagea l reflux disease) (K21.9) Active confirmed Problem Multiple pulmonary nodules (200250676) Multiple pulmonary nodules (R91.8) Active confirmed Problem Ex-tobacco user (finding) (191666216) History of tobacco abuse (Z87.891) Active confirmed Problem Luiuj-2-typaulrlhig deficiency (62160058) 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 Vital Signs Heart Rate 71 /min 12/11/2024 RA Activity/Res ting Temperature 97.1 degrees Fahrenheit 12/11/2024 RA A ctivity/Resting Respiratory Rate 18 /min 12/11/2024 RA Activity /Resting Blood pressure diastolic 85 mm Hg 12/11/2024 RA Activity/Resting Oximetry 90 % 12/11/2024 RA Activity/Res ting Height 72 in 12/11/2024 RA Activity/Res ting Blood pressure systolic 160 mm Hg 12/11/2024 RA A ctivity/Resting Weight 205.0 lbs 12/11/2024 RA Activity/Res ting BMI 27.8 kg/m2 12/11/2024 RA Activity/Res ting Encounters Encounter Location Date Provider Diagnosis [facility] [address] [place] [address] 04/19/2024 Fareed Cruz Centrilobular emphys wicho J43.2 [facility] [address] [place] [address] 06/11/2024 [facility] Pul[facility] [address] [place] [facility] [place] [address] 07/02/2024 [facility] Pul[facility] [address] [place] [facility] [place] [place] [address] 09/17/2024 [facility] [address] [place] [facility] [place] [place] [address] 12/10/2024 [facility] Pul[facility] [address] [place] [facility] [place] [place] [address] 03/06/2025 [facility] Pul[facility] [address] [place] [facility] [place] [place] [address] 06/27/2024 [facility] Centrilobular emphys wicho J43.2 ; Multiple pulmonary nodules R91.8 ; AAT (roght-4-ugdvzaqqfng) deficiency E88.01 ; terminal superintendent (current) use of inhaled steroids Z79.51 and History of tobacco abuse Z87.891 [facility] [address] [place] [address] 12/11/2024 [facility] Centrilobular emphys wicho J43.2 ; Hypoxemia R09.02 ; AAT (ocypg-5-iyabsiffmvj) deficiency E88.01 ; Encounter for immunization Z23 ; Multiple pulmonary nodules R91.8 ; USP (current) use of inhaled steroids Z79.51 and History of tobacco abuse Z87.891 Assessments Encounter Date Diagnosis (ICD Code) Assessment Notes Treatment Notes Treatment Clinical Notes Section Notes 06/27/2024 Centrilobular emphysema (ICD-10 - J43.2) He continues to be symptomatic. Tried to change from Trelegy to Stiolto, but patient appears a little confused on what to take. When he does take Trelegy, he is using it inappropriately with use only once every 2-3 days. I asked the patient what inhaler he wanted to be on, but he was somewhat noncommittal. He finally stated that he would just stay on the Trelegy. He was instructed to use it daily, not as needed. We also discussed using albuterol more often as he is symptomatic. Suggested using it prophylactically 15 to 30 minutes before activities that he knows to cause shortness of breath. He can also use it reactively as well. He complained about short of breath bending over. This is a common feature secondary to abdominal adiposity. I suggested that he do not bend down this way; he can use appropriate lifting techniques with his legs, or invest in a grabber, or have some other family member grab something for him. Looking into future treatment if Trelegy fails, he states that he is looking into a new insurance company as [facility] [employer] is giving him problems with Trelegy. It appears that he has enough medication to last him until the new year. Will have him come back in 2 months and hopefully he has his formulary that I can find out what is covered if you want to try any new therapies. 06/27/2024 Multiple pulmonary nodules (ICD-10 - R91.8) Patient's had a history of waxing and waning nodules. Most recently on chest CT 07/05/2023, and a new 1.1 x 0.9 cm left upper lobe spiculated nodule and a new 4 mm right middle lobe nodule. This is scored RADS 4A. He was advised on 07/06/2023 and 07/11/2023 to proceed with further care, at least monitoring. He states he did not want anything done at that time. Today, he reiterates that he does not want any chemo, radiation, or other surgery/procedure. His reasoning is that he thinks if something were bad, he would be feeling something by now. I stated that this is not a great approach to monitor her health care. As of this time, no further imaging has been ordered as the patient does not want anything done. Once again, he was counseled that this could be cancer. 12/11/2024 Centrilobular emphysema (ICD-10 - J43.2) He [...] full testing - 6MW, nocturnal) -Prolastin for ME (unclear if he would qualify - needs [...] he once again denied any further w/up. 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 Discussed consideration of augmentation therapy - would recheck PFT to see if any decline +/- retesting level. Patient refused this option today. 06/27/2024 AAT (emkit-8-jiksorin sin) deficiency (ICD-10 - E88.01) Patient has a variant AAT genotype. Level is adequate at this time, but smoking can still affect the I allele and increase his risk of further emphysematous development. 06/27/2024 USP (current) use of inhaled steroids (ICD-10 - Z79.51) He was counseled to rinse/gargle if he continues Trelegy. 12/11/2024 Encounter for immunization (ICD-10 - Z23) [...] is off the table as an option. 06/27/2024 History of tobacco abuse (ICD-10 - Z87.891) Patient quit smoking September of this year. He was allotted for his efforts. He does not meet LDCT screening guidelines because of the abnormal nodules that would need followed up with a diagnostic CT chest. 12/11/2024 USP (current) use of inhaled steroids (ICD-10 - Z79.51) He was counseled to rinse/gargle if he continues Trelegy. 12/11/2024 History of tobacco abuse (ICD-10 - Z87.891) Patient quit smoking September of this year. He was allotted for his efforts. He does not meet LDCT screening guidelines because of the abnormal nodules that would need followed up with a diagnostic CT chest. Plan Of Treatment No Information Insurance Providers Payer Name Payer Address Payer Phone Subscriber Number Group Number Insured Name Patient Relationship to Insured Coverage Start Date Coverage End Date [employer] [address] [place] [phone] [id number] Pawan Kaplan Self - patient is the insured Medical (General) History Medical History History ICD Code Centrilobular emphysema J43.2 AAT (jthzh-6-decvlssjhke) deficiency E88 .01 CAD (coronary artery disease) I25.10 HTN (hypertension) I10 HLD (hyperlipidemia) E78.5 GERD (gastroesophageal reflux disease) K 21.9 Multiple pulmonary nodules R91.8 History of tobacco abuse Z87.891 Surgical History Surgery Date(Month/Year) vascular stent coronary artery bypass graft Cardiac Catheterization Hernia Repair Shoulder Surgery-Left
--- NOTE | 2025-03-21 14:10 | CA_ITS ---
Patient Name: JACKELYN BUSTILLO MR#: [id number] : 1955 Exam Date: 03/21/2025 Ordering Doctor: DR LEONORA DAHL M.D. ECHOCARDIOGRAM REPORT PROCEDURE: CA ECHO DOPPLER COMPLETE INDICATIONS: Dyspnea, COPD, MS, cardiac stents COMPARISON: None. DESCRIPTION: COMPLETE ECHOCARDIOGRAM Real-time transthoracic echocardiography with 2D, M-mode, spectral and color flow Doppler performed. QUALITY: Technical quality was good. LEFT VENTRICLE: Normal chamber size. Mild concentric left ventricular hypertrophy. LV EF: Global left ventricular systolic function is difficult to assess but appears preserved; visually estimated ejection fraction is 50 to 55%. No significant wall motion abnormalities. DIASTOLIC: Normal diastolic function. ATRIAL SEPTUM: Visually appears intact. LEFT ATRIUM: Normal chamber size. RIGHT ATRIUM: Normal chamber size. RIGHT VENTRICLE: Normal chamber size. Normal right ventricular systolic function. TRICUSPID VALVE: Normal mobility and thickness. No stenosis with mild regurgitation. Doppler studies reveal mildly (35-45) elevated right sided pressures. RVSP 43 mmHg MITRAL VALVE: Normal mobility and thickness. No evidence of mitral valve stenosis. Mild mitral annular calcification. No mitral regurgitation. AORTIC VALVE: Normal trileaflet appearance. Mildly calcified aortic valve. Normal leaflet mobility. No evidence of aortic valve stenosis. Trivial aortic regurgitation. AORTIC ROOT: Normal diameter and appearance. PULMONIC VALVE: Normal thickness and mobility. No stenosis. No regurgitation. PERICARDIUM: No evidence of pericardial effusion. IVC: Collapses with inspiration. IVC is normal in size. CONCLUSION: 1. Global left ventricular systolic function is difficult to assess but appears preserved; visually estimated ejection fraction is 50 to 55% 2. Normal right ventricular size and systolic function 3. Normal diastolic function 4. Mild tricuspid regurgitation 5. Mildly elevated right sided pressures; RVSP 43 mmHg Adult Echocardiography Procedure Report Left Ventricle LVEDD (3.7 - 5.6 cm): 4.45 cm LVESD (2.2 - 4.0 cm): 3.32 cm LVIVS thickness (0.6 - 1.2 cm): 1.19 cm LVPW thickness (0.5 - 1.0 cm): 1.09 cm e': 0.08 m/s E - e': 6.85 LVOT Max Gradient: 1.32 mm[Hg] LVOT Area (cm2): 0.57 m/s Peak Velocity (LVOT): 0.57 m/s Mean Velocity (LVOT): 0.38 m/s LVOT Diameter 2.56 cm Left Atrium LA Volume Index (2D A2C): 22.89 ml/m2 Left Atrium Systolic Dimension: 4.24 cm Mitral Valve MV E to A Ratio: 0.80 Mitral Valve A-Wave Peak Velocity: 0.71 m/s Mitral Valve E-Wave Peak Velocity: 0.57 m/s Right Ventricle Aorta AO Root Diam: 3.81 cm Aortic Valve AoV Area (Peak Karthik): 2.92 cm2, 2.92 cm2 AoV Area (VTI): 3.79 cm2, 3.79 cm2 Peak Velocity(Antegrade Flow): 1.01 m/s Peak Gradient(Antegrade Flow): 4.06 mm[Hg] Mean Velocity(Antegrade Flow): 0.60 m/s Mean Gradient(Antegrade Flow): 1.76 mm[Hg] Velocity Time Integral: 20.22 cm Tricuspid Valve Peak Velocity (Regurgitant Flow): 3.18 m/s Pulmonic Valve Peak Gradient: 1.78 mm[Hg], 2.02 mm[Hg] Right Atrium Right Atrium Systolic Pressure: 46.10 ml, 46.10 ml Dictated by: Chavo Santana M.D. on 03/21/2025 at 16:08 Approved by: Chavo Santana M.D. on 03/21/2025 at 16:12
--- OUTSIDE RECORDS SUMMARY | 2025-03-21 14:19 | XMS_ITS | CCD ---
Author Organization [facility] Care Team Providers Care Salesperson Furs Name Role Phone ELTAHAWY, EHAB A Admitting [...] ., NICKO Consulting Unavailable JACKY, DR KEATON Monroe Primary Care Unavailable ALGHOTHANI, MOHAMAD Admitting Unavailable ALGHOTHANI, MOHAMAD Attending Unavailable ALGHOTHANI, MOHAMAD Consulting Unavailable MISC, DR BRICEÑO Consulting Unavailable DR KEATON RICO Primary Care Unavailable MISC, DR BRICEÑO Admitting Unavailable MISC, DR BRICEÑO Attending Unavailable JACKY, DR KEATON Monroe Primary Care Unavailable MARITZA SCOTT Admitting Unavailable MARITZA SCOTT Attending Unavailable MARITZA SCOTT Consulting Unavailable JOSE, DR MUNIR Balderas Consulting Unavailable DR KEATON RICO Primary Care Unavailable SAMSA ., NICKO Admitting Unavailable SAMSA ., NICKO Attending Unavailable SAMSA ., NICKO Consulting Unavailable Madie Honeycutt Unavailable MD Keaton Rico Primary Care Provider LANDEN Honeycutt Attending Provider MD Tom Schroeder Attending Provider [phone] MD Keaton Rico Primary Care Provider MD Tom Schroeder Attending Provider MD Tom Schroeder Admit Provider [phone] MD Juventino Kruse Other Provider MD Keaton Rico Primary Care Provider MD Tom Schroeder Attending Provider Keaton Rico MD Primary Care Provider [phone] Tom Schroeder MD Attending Provider Tom Schroeder Attending Unavailable Keaton Rico Primary Care Unavailable Tom Schroeder Admitting Unavailable Keaton Rico Primary Care Unavailable Tom Schroeder Admitting Unavailable Tom Schroeder Attending Unavailable Tom Schroeder Attending Unavailable Juventino Kruse Consulting Unavailable Keaton Rico Primary Care Unavailable Tom Schroeder Admitting Unavailable Tom Schroeder Admitting Unavailable Keaton Rico Primary Care Unavailable Tom Schroeder Attending Unavailable LEONORA DAHL Attending Unavailable ARAVIND JOSÉ Attending Unavailable Allergies Allergy Classification Reported Allergen(s) Allergy Type Date of Onset Reaction(s) Facility (1 source) No Known Medication Allergies; Translations: [No Known Medication Allergies] Propensity to adverse reactions (disorder) [facility] Repository Medications Current Medications Medication Drug Class(es) [...] Refills(s) 0 Start Date: 06/22/21 Status: Ordered [id number] 200 actuat albuterol 0.09 mg/actuat metered dose inhaler (17 sources) beta2-Adrenergic Agonist Start: 05-13-2021 End: 07-30-2024 take 1 puff(s) by inhalation four times daily as needed for wheezing Albuterol Sulfate (Ventolin Hfa) 90 mcg/actuation HFA aerosol inhaler Active 2 PUFF INHALATION Four times daily as needed for Wheezing 8.5 July 30, 2024 2:58pm take 1 puff(s) by in halation every four hours as needed Ventolin HFA 108 (90 Base) MCG/ACT 1 puf f as needed Inhalation every 4 hrs Active aspirin 81 mg chewable tablet (20 sources) Platelet Aggregation Inhibitor, Nonsteroidal Anti-inflammatory Drug Start: 09-04-2024 take 1 tablet by mouth once daily Aspirin 81 mg tablet,chewable Active 81 MG PO Daily September 04, 2024 12:00am Start: 05-13-2021 End: 09-17-2023 take 1 tablet by mouth once daily Aspirin (Aspir-81) 81 mg Tablet,Delayed Release (Dr/Ec) Discontinued 81 MG PO Daily May 12, 2021 11:00pm September 17, 2023 4:28pm Start: 04-20-2021 take 1 mg by mouth [...] 1 tablet Orally Once a day Active doxycycline hyclate 100 mg oral capsule (1 source) Tetracycline-class Drug Start: 01-19-2022 End: 02-09-2022 take 1 capsule by mouth every twelve hours doxycycline hyclate 100 mg Cap 100 mg = 1 cap(s), Oral, q12hr, X 21 day(s), # 42 cap(s), Refills(s) 0, Pharmacy: [facility]/pharmacy #[id number], 180, cm, 01/15/22 10:43:00 EDT, [...] day Active ezetimibe 10 mg oral tablet (11 sources) Dietary Cholesterol Absorption Inhibitor Start: 05-18-2023 take 1 tablet by mouth once daily Ezetimibe 10 mg tablet Active 10 MG PO Daily May 17, 2023 11:00pm Fluticasone-Umecl idin-Vilanter (5 sources) Anticholinergic, Corticosteroid, beta2-Adrenergic Agonist Start: 05-13-2021 Fluticasone-Umecl idin-Vilanter (Trelegy Ellipta) 100-62.5-25 mcg blister with device [...] sources) Angiotensin Converting Enzyme Inhibitor Start: 01-11-2024 End: 07-09-2024 Lisinopril 10 mg tablet Active 0 .ROUTE .COMPLEX July 09, 2024 2:13pm TAKE 1 TABLET DAILY Start: 11-04-2023 End: 01-11-2024 Lisinopril 10 mg tablet Disc ontinued 0 .ROUTE .COMPLEX November 04, 2023 10:00am January 11, 2024 12:03pm TAKE 1 TABLET DAILY Start: 11-04-2023 End: 01-11-2024 Lisinopril Discontinued 0 .R OUTE .COMPLEX November 04, 2023 11:00am January 11, 2024 1:03pm TAKE 1 TABLET DAILY Start: 04-20-2021 End: 11-04-2023 take 1 tablet by mouth once daily Lisinopril 10 mg tablet Discontinued 10 MG PO Daily May 12, 2021 11:00pm November 04, 2023 10:00am 24 hr metoprolol succinate 25 mg extended release oral tablet (6 sources) beta-Adrenergic Angelica Start: 05-18-2023 take 1 tablet by mouth once daily Metoprolol Succinate 25 mg tablet extended release 24 hr Active 25 MG PO Daily May 17, 2023 11:00pm Start: 05-18-2023 take 10 mg by mouth once daily Metoprolol Succinate Active 10 MG PO Daily May 17, 2023 11:00pm Metoprolol Succi sudhir Active nitroglycerin 0.4 mg sublingual tablet (6 sources) Nitrate Vasodilator Start: 05-18-2023 Nitroglyce rin 0.4 mg tablet, sublingual Active 0.4 MG SUBLINGUAL EVERY 5 MINUTES as needed for Chest Pain May 17, 2023 11:00pm Start: 02-14-2023 Nitroglycerin 0.4 MG 1 tablet Sublingual as needed Jan, Active Oxycodone-Ibuprofen (6 sources) Oxycodone-Ibupro fen Active predniSONE 20 mg oral tablet (2 sources) Start: 2022 take 2 tablets by mouth every twenty-four hours predniSONE 20 MG 2 tablets Orally Once a day for 5 days November, Active rivaroxaban 2.5 mg oral tablet (3 sources) Factor Xa Inhibitor Start: 2023 take 1 tablet by mouth twice daily Rivaroxaban (Xarelto) 2.5 mg Tablet Active 2.5 MG PO Twice daily September 16, 2023 12:00am simvastatin 40 mg oral tablet (20 sources) HMG-CoA Reductase Inhibitor Start: 2020 End: 2023 take 1 tablet by mouth at bedtime Simvastatin 40 mg tablet Active 40 MG PO Bedtime June 13, 2024 10:23am tamsulosin hydrochloride 0.4 mg oral capsule (20 sources) alpha-Adrenergi c Angelica Start: 2020 End: 2023 take 1 capsule by mouth twice daily Tamsulosin (Flomax) 0.4 mg capsule Active 0.4 MG PO Twice daily June 13, 2024 10:22am Start: 05-13-2021 take 1 capsule by mo [facility] once daily Tamsulosin (Flomax) 0.4 mg [...] mg (4 sources) take 1 tablet by [facility] twice daily Valcyclovir-500 mg 500 mg one tab orally twice a day Active Ventolin HFA 90 mcg/inh Aerosol (3 sources) Start: 04-20-2021 take 1 puff(s) by inhalation every six hours Ventolin HFA 90 mcg/inh Aerosol puff(s), Inhalation, q6hr, Refill(s) 0 Start Date: 04/20/21 Status: Ordered Completed/Discontinued Medications Medication Drug Class(es) Dates Sig (Normalized) Sig (Original) azithromycin 250 mg oral tablet (10 sources) Macrolide Antimicrobial Start: 07-30-2024 End: 09-04-2024 Azithromycin 250 mg tablet Discontinued 0 PO .COMPLEX July 30, 2024 12:00am September 04, 2024 1:25pm For 250 mg dose pack: take 500 mg today (day 1), then 250 mg for 4 days (days 2-5) PO Start: 10-20-2023 End: 05-09-2024 Azithromycin 250 mg tablet D iscontinued 250 MG PO daily 6 October 19, 2023 11:00pm May 09, 2024 7:04am Take 2 today and then 1 for the next four days Start: 11-09-2022 Azithromycin 2 50 MG as directed Orally 2 tabs po today, then 1 tab daily x 4 more days for 5 Oct, Not-Taking benzonatate 200 mg oral capsule (1 source) Non-narcotic Antitussive Start: 07-30-2024 End: 09-04-2024 Benzonatate 200 mg capsule Discontinued 200 MG PO 2-3 TIMES PER DAY as needed for cough July 30, 2024 12:00am September 04, 2024 1:25pm clopidogrel 75 mg oral tablet (3 sources) P2Y12 Platelet Inhibitor Start: 09-16-2023 End: 09-04-2024 take 1 tablet by mouth once daily Clopidogrel (Plavix) 75 mg tablet Discontinued 75 MG PO Daily September 16, 2023 12:00am September 04, 2024 1:28pm methylPREDNISolone 4 mg oral tablet (2 sources) Corticosteroid Start: 10-20-2023 End: 05-09-2024 take 1 tablet by mouth once Methylprednisolone (Medrol (Jhonatan)) 4 mg tablets,dose pack Discontinued 0 PO per package directions 19 01October 19, 2023 11:00pm May 09, 2024 7:04am PO PER PKG DIR ofloxacin 3 mg/ml otic solution (6 sources) Quinolone Antimicrobial Start: 10-29-2022 Ofloxacin 0.3 % as directed Ophthalmic every 12 hrs for 5 days Sep, Not-Taking Start: 10-29-2022 Ofloxacin 0.3 % as directed Ophthalmic every 12 hrs for 5 days Sep, Not-Taking prasugrel 10 mg oral tablet (16 sources) P2Y12 Platelet Inhibitor Start: 04-20-2021 End: 05-18-2023 take 1 tablet by mouth once daily Prasugrel 10 mg tablet Discontinued 10 MG PO Daily May 12, 2021 11:00pm May 18, 2023 7:09am trifluridine 10 mg/ml ophthalmic solution (5 sources) [...] Chronic Chronic obstructive pulmonary disease and bronchiectasis (20 sources) Chronic obstructive lung disease; Translations: [Pulmonary emphysema] 09-20-2021 Chronic Comment on above: Problem List clean-u p per request of Phys. EHR Cmte Chronic obstructive pulmonary disease and bronchiectasis (4 sources) Bronchitis, not specified as acute or chronic; Translations: [Bronchitis] Episodic Coronary atherosclerosis and other heart disease (6 sources) Atherosclerotic heart disease of hoh coronary artery without angina pectoris; Translations: [ASHD ELIM IRA CA W/O ANGINA PECTORIS] Onset: 09-28-2022 Chronic Coronary atherosclerosis and other heart disease (2 sources) Presence of coronary angioplasty implant and graft; Translations: [Presence of coronary angioplasty implant and graft] Onset: 03-11-2025 Episodic Coronary atherosclerosis and other heart disease (1 source) Coronary atherosclerosis and other heart disease; Translations: [Atherosclerosis of hoh arteries of extremities with intermittent claudication, bilateral legs] Onset: 09-12-2023 Disorders of lipid metabolism (5 sources) Hypercholesterolemia; Translations: [Mixed hyperlipidemia] Onset: 09-27-2022 04-20-2021 Chronic Essential hypertension (3 sources) Benign essential hypertension; Translations: [Essential (primary) hypertension] Onset: 03-11-2025 05-09-2024 Chronic Genitourinary symptoms and ill-defined conditions (12 sources) Incomplete emptying of bladder; Translations: [Increased frequency of urination] 04-20-2021 Episodic Glaucoma (3 sources) Glaucoma 04-20-2021 Chronic Hyperplasia of prostate (9 sources) Benign prostatic hypertrophy with outflow obstruction; Translations: [Benign prostatic hyperplasia with lower urinary tract symptoms] Onset: 04-19-2022 04-20-2021 Chronic Osteoarthritis (3 sources) Arthritis 04-20-2021 Chronic Other circulatory disease (3 sources) Peripheral arterial occlusive disease; Translations: [Disorder of arteries and arterioles, unspecified] 09-15-2023 Chronic Other circulatory disease (4 sources) Disorder of arteries and arterioles, unspecified; Translations: [Arterial embolism and thrombosis of lower extremity] Onset: 09-14-2023 09-17-2023 Chronic Other circulatory disease (1 source) Other specified symptoms and signs involving the circulatory and respiratory systems Episodic Other lower respiratory disease (3 sources) Shortness of breath; Translations: [SHORTNESS OF BREATH] Onset: 12-18-2021 Episodic Other screening for suspected conditions (not mental disorders or infectious disease) (1 source) Patient encounter status; Translations: [Encounter for screening for malignant neoplasm of prostate] 05-09-2024 Episodic Peripheral and visceral atherosclerosis (20 sources) Peripheral vascular disease; Translations: [Peripheral vascular disease, unspecified] Onset: 05-11-2021 Resolved: 05-11-2021 Chronic Residual codes; unclassified (1 source) Other specified postprocedural states Episodic Screening and history of mental health and substance abuse codes (3 sources) Ex-smoker; Translations: [Personal history of nicotine dependence] 10-11-2023 Episodic Substance-related disorders (20 sources) Smoker; Translations: [Nicotine dependence, unspecified, uncomplicated] Onset: 05-11-2021 Resolved: 05-11-2021 04-20-2021 Chronic Comment on above: Added secondary to d ocumentation in Social History. Unclassified (3 sources) Finding of sensation of bladder 04-20-2021 Past or Other Problems Problem Classification Problem Date Documented Date Episodic/Chronic Complications of surgical procedures or medical care (5 sources) Respiratory failure; Translations: [Acute postprocedural respiratory failure] Onset: 09-14-2023 09-17-2023 Episodic Inflammatory conditions of male genital organs (5 sources) Prostatitis; Translations: [Inflammatory disease of prostate, unspecified] Onset: 04-19-2022 12-21-2021 Episodic Other lower respiratory disease (4 sources) Other nonspecific abnormal finding of lung field; Translations: [OTH NONSPECIFIC ABN FIND LNG FIELD] Onset: 06-16-2022 Episodic Results Test Name Value Interpretation Reference Range Facility Office Visiton 03-11-2025 Follow-up visit [id number] Pawan Bustillo 1955 M Date Provider Department Center 03/11/2025 LEONORA CRUZ JOCELYNE [place]oto Family History Problem Relation Age of Onset Coronary artery disease Mother Coronary artery disease Sister Coronary artery disease Brother Family Status - Relation Status Age at Mother Father Sister Brother Level of Service:12709 [place] OFFICE/OUTPATIENT ESTABLISHED MOD MDM 30 MIN Normal [facility] Office Visiton 09-18-2024 Follow-up visit [id number] Pawan Bustillo 1955 M Date Provider Department Center 09/18/2024 384ARAVIND TRIPP JOCELYNE Soto Family History Problem Relation Age of Onset Coronary artery disease Mother Coronary artery disease Sister Coronary artery disease Brother Family Status - Relation Status Age at Mother Sister Brother Level of Service:98615 [place] OFFICE/OUTPATIENT ESTABLISHED LOW MDM 20 MIN Normal [facility] US ankle/arm indiceson 09-04 US ankle/arm indices [facility] [address] [place] [address] Ultrasound Report Signed Patient: Pawan Bustillo MR#: [id number] 3 : 1955 Acct:[id number] Age/Sex: 68 / M ADM Date: 09/04/24 Loc: [facility] Room: Type: [facility] Attending Dr: Tom Schroeder MD Ordering Provider: Tom Schroeder MD Date of Service: 09/04/24 US/US ankle/arm indices: I70.213 - Atherosclerosis of hoh arteries of extremiti... Copies to: Tom Schroeder MD LOWER EXTREMITY SEGMENTAL ARTERIAL DOPSCAN (PVR) INDICATION: Follow-up known peripheral vascular occlusive disease after endovascular reconstruction PROCEDURE: Right arm blood pressure is 141 , left is 137 . Pressures at the right ankle are 141 using the posterior tibial artery, and 133 using the dorsalis pedis artery with ankle-brachial index of 1.00 0.94 . Pressures at the left ankle are 145 using the posterior tibial artery, and 132 with ankle-brachial index of 1.03 0.94 . Wave forms by plethysmography are normal. US/US ankle/arm indices IMPRESSION: NO HEMODYNAMICALLY SIGNIFICANT PERIPHERAL VASCULAR OCCLUSIVE DISEASE AT REST IN EITHER LOWER EXTREMITY. Impression dictated by: Tom Schroeder M.D.09/04/2024 1:31 PM Dictation Location: [place] [address] Tech: Irma Jimenez Transcribed By: NOÉ 09/04/24 1331 Dictated By: Tom Schroeder MD 09/04/24 1331 Signed By: 09/04/24 1331 [place] [facility] US ankle/arm indiceson 01-16 US ankle/arm indices [facility] [address] [place], [place] [id number] Ultrasound Report Signed Patient: Pawan Bustillo MR#: [id number] 3 : 1955 Acct:[id number] Age/Sex: 68 / M ADM Date: 01/17/24 Loc: [facility] Attending Dr: Tom Schroeder MD Ordering Provider: Tom Schroeder MD Date of Service: 01/17/24 US/US ankle/arm indices: I70.213 - Atherosclerosis of hoh arteries of extremiti... Copies to: Tom Schroeder [...] Tom Schroeder M.D.01/17/2024 1:08 PM Dictation Location: [place] [address] Tech: Maki Jauregui Transcribed By: NOÉ 01/17/24 1308 Dictated By: Tom Schroeder MD 01/17/24 1308 Signed By: 01/17/24 1308 Normal [facility] XR chest 1V portableon 09-17 XR chest 1V portable [facility] [place] [address] XRay Report Signed Patient: Pawan Bustillo MR#: [id number] 3 : 1955 Acct:[id number] Age/Sex: 67 / M ADM Date: 09/14/23 Loc: Room: 2M4026-2 Type: ADM IN Attending Dr: Tom Schroeder [...] Sonal Kebede M.D.09/17/2023 10:16 AM Dictation Location: [place] [address] Transcribed By: [facility] 09/17/23 1016 Dictated By: Sonal Kebede MD 09/17/23 1013 Signed By: 09/17/23 1016 Normal [facility] Activated Clotting Timeon Activated Clotting Time POC 131 s Normal 90-139 [facility] Comment on above: Result Comment: Refe rence Range: 90-139 (Non-heparinized) PERFORMED BY: [place] [address] PATHOLOGIST PIE TOPPER JOLIE MASON M.D. Performed By: #### C BC, FIB-C, PP #### [address] Activated partial thrombopla stin time (aPTT) in platelet poor plasma by coagulation aOrdered By: Tom Schroeder on 09-16-2023 aPTT Coag (PPP) [Time] 32.2 s 25.1-36.5 [facility] Comment on above: A hematocrit value g reater than 55% may lead to inaccurate results in coagulation testing. Patients having hematocrit values >55% require a special collection tube for coagulation studies. Please contact the laboratory at [phone] for redraw instructions. Automated basophil %Ordered By: Tom Schroeder on 09-16-2023 Basophils/100 WBC (Bld) 0.7 % Normal . [facility] Comment on above: Order Comment: Comme nt Every 6 hour while on tPA Performed By: #### P P, FIB-C, CBC ####[address] Automated basophil countOrde red By: Tom Schroeder on 09-16-2023 Basophils (Bld) [#/Vol] 0.1 10*3/uL Normal 0.0-0.2 [facility] Comment on above: Order Comment: Comme nt Every 6 hour while on tPA Result Comment: PERF ORMED BY: [facility] [address] [place] [address] PATHOLOGIST PIE TOPPER JOLIE MASON M.D. Performed By: #### P P, FIB-C, CBC ####[address] Automated blood monocyte cou ntOrdered By: Tom Schroeder on 09-16-2023 Monocytes (Bld) [#/Vol] 0.5 10*3/uL Normal 0.0-0.8 [facility] Comment on above: Order Comment: Comme nt Every 6 hour while on tPA Performed By: #### P P, FIB-C, CBC ####[address] Automated eosinophil %Ordere d By: Tom Schroeder on 09-16-2023 Eosinophils/100 WBC (Bld) 0.8 % Normal . [facility] Comment on above: Order Comment: Comme nt Every 6 hour while on tPA Performed By: #### P P, FIB-C, CBC ####[address] Automated eosinophil countOr dered By: Tom Schroeder on 09-16-2023 Eosinophils (Bld) [#/Vol] 0.1 10*3/uL Normal 0.0-0.45 [facility] Comment on above: Order Comment: Comme nt Every 6 hour while on tPA Performed By: #### P P, FIB-C, CBC ####[address] Automated monocyte %Ordered By: Tom Schroeder on 09-16-2023 Monocytes/100 WBC (Bld) 6.6 % Normal . [facility] Comment on above: Order Comment: Comme nt Every 6 hour while on tPA Performed By: #### P P, FIB-C, CBC ####[place] [id number] [facility] Automated neutrophil %Ordere d By: Tom Schroeder on 09-16-2023 Neutrophils/100 WBC (Bld) 82.4 % Normal . [facility] Comment on above: Order Comment: Comme nt Every 6 hour while on tPA Performed By: #### P P, FIB-C, CBC ####[address] Blood activated clotting francois e by coagulation assayOrdered By: Tom Schroeder on 09-16-2023 ACT Coag (Bld) 131 s 90-139 [facility] Comment on above: Reference Range: 90- 139 (Non-heparinized) Coagulation Profileon 2023 aPTT Coag (Bld) [Time] 32.2 s Normal 25.1-36.5 [facility] Comment on above: Order Comment: Comme nt Every 6 hours while on tPA Result Comment: A he matocrit value greater than 55% may lead to inaccurate results in coagulation testing. Patients having hematocrit values >55% require a special collection tube for coagulation studies. Please contact the laboratory at [phone] for redraw instructions. Performed By: #### P P, FIB-C, CBC ####[place] [id number] [facility] Complete Blood Count Auto Di ffon 09-16-2023 Mean Corpuscular HGB Conc 34.2 g/dL Normal 32.5-35.6 [facility] Comment on above: Order Comment: Comme nt Every 6 hour while on tPA Performed By: #### P P, FIB-C, CBC ####[address] [place] [address] [facility] NRBC% 0.1 /100{WBC} Normal 0-0.5 [facility] Comment on above: Order Comment: Comme nt Every 6 hour while on tPA Performed By: #### P P, FIB-C, CBC ####[place] [id number] [facility] Erythrocyte distribution wid th [Ratio] by Automated countOrdered By: Tom Schroeder on 09-16-2023 Erythrocyte distribution width (RBC) [Ratio] 14.2 % Normal 12.0-14.8 [facility] Comment on above: Order Comment: Comme nt Every 6 hour while on tPA Performed By: #### P P, FIB-C, CBC ####[address] Erythrocytes [#/volume] in B lood by Automated countOrdered By: Tom Schroeder on 09-16-2023 RBC (Bld) [#/Vol] 4.20 10*6/uL Normal 3.90-5.60 [facility] Comment on above: Order Comment: Comme nt Every 6 hour while on tPA Performed By: #### P P, FIB-C, CBC ####[place] [id number] [facility] Fibrinogenon 09-16-2023 Fibrinogen 191 mg/dL Low 200-393 [facility] Comment on above: Order Comment: Comme nt Every 6 hours while on tPA Result Comment: A he matocrit value greater than 55% may lead to inaccurate results in coagulation testing. Patients having hematocrit values >55% require a special collection tube for coagulation studies. Please contact the laboratory at [phone] for redraw instructions. PERFORMED BY: [facility] [address] [place] [id number] PATHOLOGIST PIE TOPPER JOLIE MASON M.D. Performed By: #### P P, FIB-C, CBC ####[place] [id number] [facility] Fibrinogen [Mass/volume] in Platelet poor plasma by Coagulation assayOrdered By: Tom Schroeder on 09-16-2023 Fibrinogen Coag (PPP) [Mass/Vol] 191 mg/dL 200-393 [facility] Comment on above: A hematocrit value g reater than 55% may lead to inaccurate results in coagulation testing. Patients having hematocrit values >55% require a special collection tube for coagulation studies. Please contact the laboratory at [phone] for redraw instructions. Hematocrit [Volume Fraction] of Blood by Automated countOrdered By: Tom Schroeder on 09-16-2023 Hematocrit (Bld) [Volume fraction] 41.9 % Normal 38.8-50.0 [facility] Comment on above: Order Comment: Comme nt Every 6 hour while on tPA Performed By: #### P P, FIB-C, CBC ####[facility] [address] [place] [address] Hemoglobin [Mass/volume] in BloodOrdered By: Tom Schroeder on 09-16-2023 Hemoglobin (Bld) [Mass/Vol] 14.3 g/dL Normal 13.0-17.0 [facility] Comment on above: Order Comment: Comme nt Every 6 hour while on tPA Performed By: #### P P, FIB-C, CBC ####[facility] [address] [place] [address] INR in Platelet poor plasma by Coagulation assayOrdered By: Tom Schroeder on 09-16-2023 INR Coag (PPP) [Relative time] 1.2 {INR} Normal [facility] Comment on above: INR Therapeutic Rang e [...] - 4.5 Performed By: #### P P, FIB-C, CBC ####[address] Leukocytes [#/volume] correc sharona for nucleated erythrocytes in Blood by Automated counOrdered By: Tom Schroeder on 09-16-2023 WBC corrected for nucl RBC Auto (Bld) [#/Vol] 7.6 10*3/uL 4.1-10.5 [facility] Leukocytes [#/volume] in Blo od by Automated countOrdered By: Tom Schroeder on 09-16-2023 WBC (Bld) [#/Vol] 7.6 10*3/uL Normal 4.1-10.5 [facility] Comment on above: Order Comment: Comme nt Every 6 hour while on tPA Performed By: #### P P, FIB-C, CBC ####[address] Lymphocytes [#/volume] in Bl ood by Automated countOrdered By: Tom Schroeder on 09-16-2023 Lymphocytes (Bld) [#/Vol] 0.7 10*3/uL Low 1.00-4.8 [facility] Comment on above: Order Comment: Comme nt Every 6 hour while on tPA Performed By: #### P P, FIB-C, CBC ####[address] Lymphocytes/100 leukocytes i n Blood by Automated countOrdered By: Tom Schroeder on 09-16-2023 Lymphocytes/100 WBC (Bld) 9.5 % Normal . [facility] Comment on above: Order Comment: Comme nt Every 6 hour while on tPA Performed By: #### P P, FIB-C, CBC ####[address] MCH [Entitic mass] by Automa sharona countOrdered By: Tom Schroeder on 09-16-2023 MCH (RBC) [Entitic mass] 34.1 pg Normal 27.5-35.2 [facility] Comment on above: Order Comment: Comme nt Every 6 hour while on tPA Performed By: #### P P, FIB-C, CBC ####[place] [id number] MCHC Auto (RBC) [Mass/Vol]Or dered By: Tom Schroeder on 09-16-2023 MCHC (RBC) [Mass/Vol] 34.2 g/dL 32.5-35.6 [facility] MCV [Entitic volume] by Auto mated countOrdered By: Tom Schroeder on 09-16-2023 MCV (RBC) [Entitic vol] 99.7 fL Normal 83.5-101 [facility] Comment on above: Order Comment: Comme nt Every 6 hour while on tPA Performed By: #### P P, FIB-C, CBC ####[address] Neutrophils [#/volume] in Bl ood by Automated countOrdered By: Tom Schroeder on 09-16-2023 Neutrophils (Bld) [#/Vol] 6.3 10*3/uL Normal 1.8-7.7 [facility] Comment on above: Order Comment: Comme nt Every 6 hour while on tPA Performed By: #### P P, FIB-C, CBC ####[address] Nucleated erythrocytes [Pres ence] in Blood by Automated countOrdered By: Tom Schroeder on 09-16-2023 Nucleated RBC Auto Ql (Bld) 0.1 /100{WBC} 0-0.5 [facility] Platelet mean volume [Entiti c volume] in Blood by Automated countOrdered By: Tom Schroeder on 09-16-2023 Platelet mean volume (Bld) [Entitic vol] 7.7 fL Normal 6.6-10.1 [facility] Comment on above: Order Comment: Comme nt Every 6 hour while on tPA Performed By: #### P P, FIB-C, CBC ####[place] [address] [place] [address] [facility] Platelets [#/volume] in Bloo d by Automated countOrdered By: Tom Schroeder on 09-16-2023 Platelets (Bld) [#/Vol] 121 10*3/uL Low 150-450 [facility] Comment on above: Order Comment: Comme nt Every 6 hour while on tPA Performed By: #### P P, FIB-C, CBC ####[place] [id number] [facility] Prothrombin time (PT)Ordered By: Tom Schroeder on 09-16-2023 PT Coag (PPP) [Time] 13.7 s High 9.0-12.9 [facility] Comment on above: A hematocrit value g reater than 55% may lead to inaccurate results in coagulation testing. Patients having hematocrit values >55% require a special collection tube for coagulation studies. Please contact the laboratory at [phone] for redraw instructions. Order Comment: Comme nt Every 6 hours while on tPA Result Comment: A he matocrit value greater than 55% may lead to inaccurate results in coagulation testing. Patients having hematocrit values >55% require a special collection tube for coagulation studies. Please contact the laboratory at [phone] for redraw instructions. Performed By: #### P P, FIB-C, CBC ####[place] [id number] [facility] Basic Metabolic Panelon 09-01 Creatinine Clr Calc Pharmacy 95.43 Normal [facility] Comment on above: Result Comment: PERF ORMED BY: [facility] [address] [place] [address] PATHOLOGIST PIE TOPPER JOLIE MASON M.D. Performed By: #### B MP ####[place] [id number] [facility] GFR/1.73 sq M.predicted MDRD (S/P/Bld) [Vol rate/Area] mL/min/{1.73_m2} Normal [facility] Comment on above: Performed By: #### B MP ####[address] [place] [address] [facility] Calcium [Mass/volume] in Ser um or PlasmaOrdered By: Niko Del Angel on 09-15-2023 Calcium [Mass/Vol] 8.3 mg/dL Low 8.6-10.3 [facility] Comment on above: Performed By: #### B MP ####[place] [address] [place] [id number] [facility] Carbon dioxide, total [Moles /volume] in Serum or PlasmaOrdered By: Niko Del Angel on 09-15-2023 CO2 [Moles/Vol] 29.9 mmol/L Normal 21.0-31.0 [facility] Comment on above: Performed By: #### B MP ####[place] [id number] [facility] Chloride [Moles/volume] in S devyn or PlasmaOrdered By: Niko Del Angel on 09-15-2023 Chloride [Moles/Vol] 106 mmol/L Normal 98-107 [facility] Comment on above: Performed By: #### B MP ####[place] [id number] [facility] Coagulation Profileon 2023 aPTT Coag (Bld) [Time] 23.4 s Low 25.1-36.5 [facility] Comment on above: Order Comment: Comme nt Every 6 hours while on tPA Result Comment: A he matocrit value greater than 55% may lead to inaccurate results in coagulation testing. Patients having hematocrit values >55% require a special collection tube for coagulation studies. Please contact the laboratory at [phone] for redraw instructions. Performed By: #### C BC, FIB-C, PP #### [facility] [address] [place] [id number] [facility] INR Coag (PPP) [Relative time] 1.1 {INR} Normal [facility] Comment on above: Order Comment: [...] - 4.5 Performed By: #### C BC, FIB-C, PP #### [facility] [address] PT Coag (PPP) [Time] 12.9 s Normal 9.0-12.9 [facility] Comment on above: Order Comment: Comme nt Every 6 hours while on tPA Result Comment: A he matocrit value greater than 55% may lead to inaccurate results in coagulation testing. Patients having hematocrit values >55% require a special collection tube for coagulation studies. Please contact the laboratory at [phone] for redraw instructions. Performed By: #### C BC, FIB-C, PP #### [address] aPTT Coag (Bld) [Time] 126.7 s Off scale high 25.1-36.5 [facility] Comment on above: Order Comment: Comme nt Every 6 hours while on tPA Result Comment: A he matocrit value greater than 55% may lead to inaccurate results in coagulation testing. Patients having hematocrit values >55% require a special collection tube for coagulation studies. Please contact the laboratory at [phone] for redraw instructions. Performed By: #### C BC, PP, FIB-C #### [address] INR Coag (PPP) [Relative time] 1.2 {INR} Normal [facility] Comment on above: Order Comment: [...] By: #### C BC, PP, FIB-C #### [facility] [address] [place] [address] [place] PT Coag (PPP) [Time] 13.3 s High 9.0-12.9 [facility] Comment on above: Order Comment: Comme nt Every 6 hours while on tPA Result Comment: Crit ical value result called at 1601 on 09/15/23 A hematocrit value greater than 55% may lead to inaccurate results in coagulation testing. Patients having hematocrit values >55% require a special collection tube for coagulation studies. Please contact the laboratory at [phone] for redraw instructions. Performed By: #### C BC, PP, FIB-C #### [facility] [address] [place] [address] [place] aPTT Coag (Bld) [Time] 32.6 s Normal 25.1-36.5 [facility] Comment on above: Order Comment: Comme nt Every 6 hours while on tPA Result Comment: A he matocrit value greater than 55% may lead to inaccurate results in coagulation testing. Patients having hematocrit values >55% require a special collection tube for coagulation studies. Please contact the laboratory at [phone] for redraw instructions. Performed By: #### C BC, FIB-C, PP #### [facility] [address] [place] [address] [place] INR Coag (PPP) [Relative time] 1.1 {INR} Normal [facility] Comment on above: Order Comment: [...] - 4.5 Performed By: #### C BC, FIB-C, PP #### [facility] [address] [place] [address] [place] PT Coag (PPP) [Time] 13.1 s High 9.0-12.9 [facility] Comment on above: Order Comment: Comme nt Every 6 hours while on tPA Result Comment: A he matocrit value greater than 55% may lead to inaccurate results in coagulation testing. Patients having hematocrit values >55% require a special collection tube for coagulation studies. Please contact the laboratory at [phone] for redraw instructions. Performed By: #### C BC, FIB-C, PP #### [place] [id number] [facility] aPTT Coag (Bld) [Time] 35.4 s Normal 25.1-36.5 [facility] Comment on above: Order Comment: Comme nt Every 6 hours while on tPA Result Comment: A he matocrit value greater than 55% may lead to inaccurate results in coagulation testing. Patients having hematocrit values >55% require a special collection tube for coagulation studies. Please contact the laboratory at [phone] for redraw instructions. Performed By: #### C BC, FIB-C, PP #### [address] INR Coag (PPP) [Relative time] 1.1 {INR} Normal [facility] Comment on above: Order Comment: [...] - 4.5 Performed By: #### C BC, FIB-C, PP #### [place] [id number] [facility] PT Coag (PPP) [Time] 12.3 s Normal 9.0-12.9 [facility] Comment on above: Order Comment: Comme nt Every 6 hours while on tPA Result Comment: A he matocrit value greater than 55% may lead to inaccurate results in coagulation testing. Patients having hematocrit values >55% require a special collection tube for coagulation studies. Please contact the laboratory at [phone] for redraw instructions. Performed By: #### C BC, FIB-C, PP #### [address] Complete Blood Count Auto Di ffon 09-15-2023 Basophils (Bld) [#/Vol] 0.0 10*3/uL Normal 0.0-0.2 [facility] Comment on above: Order Comment: Comme nt Every 6 hours while on tPA Result Comment: PERF ORMED BY: [place] [address] PATHOLOGIST PIE TOPPER JOLIE MASON M.D. Performed By: #### C BC, FIB-C, PP #### [address] Basophils/100 WBC (Bld) 0.4 % Normal . [facility] Comment on above: Order Comment: Comme nt Every 6 hours while on tPA Performed By: #### C BC, FIB-C, PP #### [address] Eosinophils (Bld) [#/Vol] 0.0 10*3/uL Normal 0.0-0.45 [facility] Comment on above: Order Comment: Comme nt Every 6 hours while on tPA Performed By: #### C BC, FIB-C, PP #### [address] Eosinophils/100 WBC (Bld) 0.5 % Normal . [facility] Comment on above: Order Comment: Comme nt Every 6 hours while on tPA Performed By: #### C BC, FIB-C, PP #### [address] Erythrocyte distribution width (RBC) [Ratio] 13.8 % Normal 12.0-14.8 [facility] Comment on above: Order Comment: Comme nt Every 6 hours while on tPA Performed By: #### C BC, FIB-C, PP #### [address] Hematocrit (Bld) [Volume fraction] 43.3 % Normal 38.8-50.0 [facility] Comment on above: Order Comment: Comme nt Every 6 hours while on tPA Performed By: #### C BC, FIB-C, PP #### [address] Hemoglobin (Bld) [Mass/Vol] 14.7 g/dL Normal 13.0-17.0 [facility] Comment on above: Order Comment: Comme nt Every 6 hours while on tPA Performed By: #### C BC, FIB-C, PP #### [address] Lymphocytes (Bld) [#/Vol] 0.7 10*3/uL Low 1.00-4.8 [facility] Comment on above: Order Comment: Comme nt Every 6 hours while on tPA Performed By: #### C BC, FIB-C, PP #### [address] Lymphocytes/100 WBC (Bld) 9.1 % Normal . [facility] Comment on above: Order Comment: Comme nt Every 6 hours while on tPA Performed By: #### C BC, FIB-C, PP #### [address] MCH (RBC) [Entitic mass] 34.1 pg Normal 27.5-35.2 [facility] Comment on above: Order Comment: Comme nt Every 6 hours while on tPA Performed By: #### C BC, FIB-C, PP #### [address] MCV (RBC) [Entitic vol] 100.2 fL Normal 83.5-101 [facility] Comment on above: Order Comment: Comme nt Every 6 hours while on tPA Performed By: #### C BC, FIB-C, PP #### [address] Mean Corpuscular HGB Conc 34.1 g/dL Normal 32.5-35.6 [facility] Comment on above: Order Comment: Comme nt Every 6 hours while on tPA Performed By: #### C BC, FIB-C, PP #### [address] [place] [address] [place] Monocytes (Bld) [#/Vol] 0.5 10*3/uL Normal 0.0-0.8 [facility] Comment on above: Order Comment: Comme nt Every 6 hours while on tPA Performed By: #### C BC, FIB-C, PP #### [address] Monocytes/100 WBC (Bld) 6.0 % Normal . [facility] Comment on above: Order Comment: Comme nt Every 6 hours while on tPA Performed By: #### C BC, FIB-C, PP #### [address] Neutrophils (Bld) [#/Vol] 6.5 10*3/uL Normal 1.8-7.7 [facility] Comment on above: Order Comment: Comme nt Every 6 hours while on tPA Performed By: #### C BC, FIB-C, PP #### [address] Neutrophils/100 WBC (Bld) 84.0 % Normal . [facility] Comment on above: Order Comment: Comme nt Every 6 hours while on tPA Performed By: #### C BC, FIB-C, PP #### [address] NRBC% 0.0 /100{WBC} Normal 0-0.5 [facility] Comment on above: Order Comment: Comme nt Every 6 hours while on tPA Performed By: #### C BC, FIB-C, PP #### [address] Platelet mean volume (Bld) [Entitic vol] 8.0 fL Normal 6.6-10.1 [facility] Comment on above: Order Comment: Comme nt Every 6 hours while on tPA Performed By: #### C BC, FIB-C, PP #### [address] Platelets (Bld) [#/Vol] 123 10*3/uL Low 150-450 [facility] Comment on above: Order Comment: Comme nt Every 6 hours while on tPA Performed By: #### C BC, FIB-C, PP #### [address] RBC (Bld) [#/Vol] 4.32 10*6/uL Normal 3.90-5.60 [facility] Comment on above: Order Comment: Comme nt Every 6 hours while on tPA Performed By: #### C BC, FIB-C, PP #### [address] WBC (Bld) [#/Vol] 7.8 10*3/uL Normal 4.1-10.5 [facility] Comment on above: Order Comment: Comme nt Every 6 hours while on tPA Performed By: #### C BC, FIB-C, PP #### [address] Basophils (Bld) [#/Vol] 0.0 10*3/uL Normal 0.0-0.2 [facility] Comment on above: Order Comment: Comme nt Every 6 hour while on tPA Result Comment: PERF ORMED BY: [place] [address] PATHOLOGIST PIE TOPPER JOLIE MASON M.D. Performed By: #### C BC, PP, FIB-C #### [address] Basophils/100 WBC (Bld) 0.4 % Normal . [facility] Comment on above: Order Comment: Comme nt Every 6 hour while on tPA Performed By: #### C BC, PP, FIB-C #### [place] [address] [place] Eosinophils (Bld) [#/Vol] 0.0 10*3/uL Normal 0.0-0.45 [facility] Comment on above: Order Comment: Comme nt Every 6 hour while on tPA Performed By: #### C BC, PP, FIB-C #### [address] Eosinophils/100 WBC (Bld) 0.4 % Normal . [facility] Comment on above: Order Comment: Comme nt Every 6 hour while on tPA Performed By: #### C BC, PP, FIB-C #### [address] Erythrocyte distribution width (RBC) [Ratio] 14.1 % Normal 12.0-14.8 [facility] Comment on above: Order Comment: Comme nt Every 6 hour while on tPA Performed By: #### C BC, PP, FIB-C #### [address] Hematocrit (Bld) [Volume fraction] 43.4 % Normal 38.8-50.0 [facility] Comment on above: Order Comment: Comme nt Every 6 hour while on tPA Performed By: #### C BC, PP, FIB-C #### [address] Hemoglobin (Bld) [Mass/Vol] 14.8 g/dL Normal 13.0-17.0 [facility] Comment on above: Order Comment: Comme nt Every 6 hour while on tPA Performed By: #### C BC, PP, FIB-C #### [address] Lymphocytes (Bld) [#/Vol] 0.7 10*3/uL Low 1.00-4.8 [facility] Comment on above: Order Comment: Comme nt Every 6 hour while on tPA Performed By: #### C BC, PP, FIB-C #### [address] Lymphocytes/100 WBC (Bld) 7.7 % Normal . [facility] Comment on above: Order Comment: Comme nt Every 6 hour while on tPA Performed By: #### C BC, PP, FIB-C #### [address] MCH (RBC) [Entitic mass] 33.9 pg Normal 27.5-35.2 [facility] Comment on above: Order Comment: Comme nt Every 6 hour while on tPA Performed By: #### C BC, PP, FIB-C #### [address] MCV (RBC) [Entitic vol] 99.7 fL Normal 83.5-101 [facility] Comment on above: Order Comment: Comme nt Every 6 hour while on tPA Performed By: #### C BC, PP, FIB-C #### [address] Mean Corpuscular HGB Conc 34.0 g/dL Normal 32.5-35.6 [facility] Comment on above: Order Comment: Comme nt Every 6 hour while on tPA Performed By: #### C BC, PP, FIB-C #### [address] Monocytes (Bld) [#/Vol] 0.5 10*3/uL Normal 0.0-0.8 [facility] Comment on above: Order Comment: Comme nt Every 6 hour while on tPA Performed By: #### C BC, PP, FIB-C #### [address] Monocytes/100 WBC (Bld) 5.8 % Normal . [facility] Comment on above: Order Comment: Comme nt Every 6 hour while on tPA Performed By: #### C BC, PP, FIB-C #### [address] Neutrophils (Bld) [#/Vol] 7.3 10*3/uL Normal 1.8-7.7 [facility] Comment on above: Order Comment: Comme nt Every 6 hour while on tPA Performed By: #### C BC, PP, FIB-C #### [address] Neutrophils/100 WBC (Bld) 85.7 % Normal . [facility] Comment on above: Order Comment: Comme nt Every 6 hour while on tPA Performed By: #### C BC, PP, FIB-C #### [place] [address] [place] NRBC% 0.1 /100{WBC} Normal 0-0.5 [facility] Comment on above: Order Comment: Comme nt Every 6 hour while on tPA Performed By: #### C BC, PP, FIB-C #### [address] Platelet mean volume (Bld) [Entitic vol] 7.4 fL Normal 6.6-10.1 [facility] Comment on above: Order Comment: Comme nt Every 6 hour while on tPA Performed By: #### C BC, PP, FIB-C #### [address] Platelets (Bld) [#/Vol] 133 10*3/uL Low 150-450 [facility] Comment on above: Order Comment: Comme nt Every 6 hour while on tPA Performed By: #### C BC, PP, FIB-C #### [address] RBC (Bld) [#/Vol] 4.36 10*6/uL Normal 3.90-5.60 [facility] Comment on above: Order Comment: Comme nt Every 6 hour while on tPA Performed By: #### C BC, PP, FIB-C #### [address] WBC (Bld) [#/Vol] 8.5 10*3/uL Normal 4.1-10.5 [facility] Comment on above: Order Comment: Comme nt Every 6 hour while on tPA Performed By: #### C BC, PP, FIB-C #### [address] Basophils (Bld) [#/Vol] 0.0 10*3/uL Normal 0.0-0.2 [facility] Comment on above: Order Comment: Comme nt Every 6 hours while on tPA Result Comment: PERF ORMED BY: [place] [address] PATHOLOGIST PIE TOPPER JOLIE MASON M.D. Performed By: #### C BC, FIB-C, PP #### [address] Basophils/100 WBC (Bld) 0.2 % Normal . [facility] Comment on above: Order Comment: Comme nt Every 6 hours while on tPA Performed By: #### C BC, FIB-C, PP #### [address] Eosinophils (Bld) [#/Vol] 0.1 10*3/uL Normal 0.0-0.45 [facility] Comment on above: Order Comment: Comme nt Every 6 hours while on tPA Performed By: #### C BC, FIB-C, PP #### [address] Eosinophils/100 WBC (Bld) 0.9 % Normal . [facility] Comment on above: Order Comment: Comme nt Every 6 hours while on tPA Performed By: #### C BC, FIB-C, PP #### [address] Erythrocyte distribution width (RBC) [Ratio] 14.0 % Normal 12.0-14.8 [facility] Comment on above: Order Comment: Comme nt Every 6 hours while on tPA Performed By: #### C BC, FIB-C, PP #### [address] Hematocrit (Bld) [Volume fraction] 45.3 % Normal 38.8-50.0 [facility] Comment on above: Order Comment: Comme nt Every 6 hours while on tPA Performed By: #### C BC, FIB-C, PP #### [address] Hemoglobin (Bld) [Mass/Vol] 15.0 g/dL Normal 13.0-17.0 [facility] Comment on above: Order Comment: Comme nt Every 6 hours while on tPA Performed By: #### C BC, FIB-C, PP #### [address] Lymphocytes (Bld) [#/Vol] 0.9 10*3/uL Low 1.00-4.8 [facility] Comment on above: Order Comment: Comme nt Every 6 hours while on tPA Performed By: #### C BC, FIB-C, PP #### [address] Lymphocytes/100 WBC (Bld) 12.0 % Normal . [facility] Comment on above: Order Comment: Comme nt Every 6 hours while on tPA Performed By: #### C BC, FIB-C, PP #### [address] MCH (RBC) [Entitic mass] 33.1 pg Normal 27.5-35.2 [facility] Comment on above: Order Comment: Comme nt Every 6 hours while on tPA Performed By: #### C BC, FIB-C, PP #### [address] MCV (RBC) [Entitic vol] 100.2 fL Normal 83.5-101 [facility] Comment on above: Order Comment: Comme nt Every 6 hours while on tPA Performed By: #### C BC, FIB-C, PP #### [address] Mean Corpuscular HGB Conc 33.1 g/dL Normal 32.5-35.6 [facility] Comment on above: Order Comment: Comme nt Every 6 hours while on tPA Performed By: #### C BC, FIB-C, PP #### [address] Monocytes (Bld) [#/Vol] 0.5 10*3/uL Normal 0.0-0.8 [facility] Comment on above: Order Comment: Comme nt Every 6 hours while on tPA Performed By: #### C BC, FIB-C, PP #### [address] Monocytes/100 WBC (Bld) 7.2 % Normal . [facility] Comment on above: Order Comment: Comme nt Every 6 hours while on tPA Performed By: #### C BC, FIB-C, PP #### [address] Neutrophils (Bld) [#/Vol] 6.0 10*3/uL Normal 1.8-7.7 [facility] Comment on above: Order Comment: Comme nt Every 6 hours while on tPA Performed By: #### C BC, FIB-C, PP #### [address] Neutrophils/100 WBC (Bld) 79.7 % Normal . [facility] Comment on above: Order Comment: Comme nt Every 6 hours while on tPA Performed By: #### C BC, FIB-C, PP #### [address] NRBC% 0.1 /100{WBC} Normal 0-0.5 [facility] Comment on above: Order Comment: Comme nt Every 6 hours while on tPA Performed By: #### C BC, FIB-C, PP #### [address] Platelet mean volume (Bld) [Entitic vol] 7.9 fL Normal 6.6-10.1 [facility] Comment on above: Order Comment: Comme nt Every 6 hours while on tPA Performed By: #### C BC, FIB-C, PP #### [address] Platelets (Bld) [#/Vol] 138 10*3/uL Low 150-450 [facility] Comment on above: Order Comment: Comme nt Every 6 hours while on tPA Performed By: #### C BC, FIB-C, PP #### [place] [address] [place] RBC (Bld) [#/Vol] 4.52 10*6/uL Normal 3.90-5.60 [facility] Comment on above: Order Comment: Comme nt Every 6 hours while on tPA Performed By: #### C BC, FIB-C, PP #### [place] [address] [place] WBC (Bld) [#/Vol] 7.5 10*3/uL Normal 4.1-10.5 [facility] Comment on above: Order Comment: Comme nt Every 6 hours while on tPA Performed By: #### C BC, FIB-C, PP #### [place] [address] [place] Basophils (Bld) [#/Vol] 0.0 10*3/uL Normal 0.0-0.2 [facility] Comment on above: Order Comment: Comme nt Every 6 hour while on tPA Result Comment: PERF ORMED BY: [place] [address] PATHOLOGIST PIE TOPPER JOLIE MASON M.D. Performed By: #### C BC, FIB-C, PP #### [place] [address] [place] Basophils/100 WBC (Bld) 0.3 % Normal . [facility] Comment on above: Order Comment: Comme nt Every 6 hour while on tPA Performed By: #### C BC, FIB-C, PP #### [place] [address] [place] Eosinophils (Bld) [#/Vol] 0.2 10*3/uL Normal 0.0-0.45 [facility] Comment on above: Order Comment: Comme nt Every 6 hour while on tPA Performed By: #### C BC, FIB-C, PP #### [place] [address] [place] Eosinophils/100 WBC (Bld) 3.7 % Normal . [facility] Comment on above: Order Comment: Comme nt Every 6 hour while on tPA Performed By: #### C BC, FIB-C, PP #### [place] [address] [place] Erythrocyte distribution width (RBC) [Ratio] 14.0 % Normal 12.0-14.8 [facility] Comment on above: Order Comment: Comme nt Every 6 hour while on tPA Performed By: #### C BC, FIB-C, PP #### [address] [place] [address] [place] Hematocrit (Bld) [Volume fraction] 45.4 % Normal 38.8-50.0 [facility] Comment on above: Order Comment: Comme nt Every 6 hour while on tPA Performed By: #### C BC, FIB-C, PP #### [address] Hemoglobin (Bld) [Mass/Vol] 15.4 g/dL Normal 13.0-17.0 [facility] Comment on above: Order Comment: Comme nt Every 6 hour while on tPA Performed By: #### C BC, FIB-C, PP #### [address] Lymphocytes (Bld) [#/Vol] 1.4 10*3/uL Normal 1.00-4.8 [facility] Comment on above: Order Comment: Comme nt Every 6 hour while on tPA Performed By: #### C BC, FIB-C, PP #### [address] Lymphocytes/100 WBC (Bld) 22.9 % Normal . [facility] Comment on above: Order Comment: Comme nt Every 6 hour while on tPA Performed By: #### C BC, FIB-C, PP #### [address] MCH (RBC) [Entitic mass] 33.9 pg Normal 27.5-35.2 [facility] Comment on above: Order Comment: Comme nt Every 6 hour while on tPA Performed By: #### C BC, FIB-C, PP #### [address] MCV (RBC) [Entitic vol] 99.8 fL Normal 83.5-101 [facility] Comment on above: Order Comment: Comme nt Every 6 hour while on tPA Performed By: #### C BC, FIB-C, PP #### [address] Mean Corpuscular HGB Conc 34.0 g/dL Normal 32.5-35.6 [facility] Comment on above: Order Comment: Comme nt Every 6 hour while on tPA Performed By: #### C BC, FIB-C, PP #### [facility] [address] [place] [address] [place] Monocytes (Bld) [#/Vol] 0.5 10*3/uL Normal 0.0-0.8 [facility] Comment on above: Order Comment: Comme nt Every 6 hour while on tPA Performed By: #### C BC, FIB-C, PP #### [facility] [address] Monocytes/100 WBC (Bld) 8.6 % Normal . [facility] Comment on above: Order Comment: Comme nt Every 6 hour while on tPA Performed By: #### C BC, FIB-C, PP #### [address] Neutrophils (Bld) [#/Vol] 3.9 10*3/uL Normal 1.8-7.7 [facility] Comment on above: Order Comment: Comme nt Every 6 hour while on tPA Performed By: #### C BC, FIB-C, PP #### [address] Neutrophils/100 WBC (Bld) 64.5 % Normal . [facility] Comment on above: Order Comment: Comme nt Every 6 hour while on tPA Performed By: #### C BC, FIB-C, PP #### [place] [address] [place] NRBC% 0.1 /100{WBC} Normal 0-0.5 [facility] Comment on above: Order Comment: Comme nt Every 6 hour while on tPA Performed By: #### C BC, FIB-C, PP #### [address] Platelet mean volume (Bld) [Entitic vol] 7.7 fL Normal 6.6-10.1 [facility] Comment on above: Order Comment: Comme nt Every 6 hour while on tPA Performed By: #### C BC, FIB-C, PP #### [facility] [address] Platelets (Bld) [#/Vol] 145 10*3/uL Low 150-450 [facility] Comment on above: Order Comment: Comme nt Every 6 hour while on tPA Performed By: #### C BC, FIB-C, PP #### [facility] [address] [place] [address] [facility] RBC (Bld) [#/Vol] 4.55 10*6/uL Normal 3.90-5.60 [facility] Comment on above: Order Comment: Comme nt Every 6 hour while on tPA Performed By: #### C BC, FIB-C, PP #### [facility] [address] [place] [id number] [facility] WBC (Bld) [#/Vol] 6.0 10*3/uL Normal 4.1-10.5 [facility] Comment on above: Order Comment: Comme nt Every 6 hour while on tPA Performed By: #### C BC, FIB-C, PP #### [facility] [address] [place] [id number] [facility] Creatinine [Mass/volume] in Serum or PlasmaOrdered By: Niko Del Angel on 09-15-2023 Creatinine [Mass/Vol] 0.69 mg/dL Low 0.70-1.30 [facility] Comment on above: Performed By: #### B MP ####[facility] [place] [id number] [facility] ECG 12 lead ECGon 09-15-2023 ECG 12 lead ECG [facility] [address] [place] [address] Electrocardiograph Report Signed Patient: Pawan Bustillo MR#: [id number] 3 : 1955 Acct:[id number] Age/Sex: 67 / M ADM Date: 09/14/23 Loc: Room: [address] [place] [address] Type: ADM IN Attending Dr: Tom Schroeder MD Ordering Provider: Niko Del Angel, Date of Service: 09/15/23 ECG/ECG 12 lead [...] ECG No previous ECGs available Confirmed by Leonora York ([id number]) on 09/16/2023 6:19:14 PM Referred By: Electronically Signed By:Leonora York Transcribed By: MUS Signed By Leonora York MD 09/16/23 1810 Normal [facility] Fibrinogenon 09-15-2023 Fibrinogen 180 mg/dL Low 200-393 [facility] Comment on above: Order Comment: Comme nt Every 6 hours while on tPA Result Comment: A he matocrit value greater than 55% may lead to inaccurate results in coagulation testing. Patients having hematocrit values >55% require a special collection tube for coagulation studies. Please contact the laboratory at [phone] for redraw instructions. PERFORMED BY: [place] [address] PATHOLOGIST PIE TOPPER JOLIE MASON M.D. Performed By: #### C BC, FIB-C, PP #### [facility] [address] [place] [address] Fibrinogen 170 mg/dL Low 200-393 [facility] Comment on above: Order Comment: Comme nt Every 6 hours while on tPA Result Comment: A he matocrit value greater than 55% may lead to inaccurate results in coagulation testing. Patients having hematocrit values >55% require a special collection tube for coagulation studies. Please contact the laboratory at [phone] for redraw instructions. PERFORMED BY: [place] [address] PATHOLOGIST PIE TOPPER JOLIE MASON M.D. Performed By: #### C BC, PP, FIB-C #### [facility] [address] [place] [address] Fibrinogen 172 mg/dL Low 200-393 [facility] Comment on above: Order Comment: Comme nt Every 6 hours while on tPA Result Comment: A he matocrit value greater than 55% may lead to inaccurate results in coagulation testing. Patients having hematocrit values >55% require a special collection tube for coagulation studies. Please contact the laboratory at [phone] for redraw instructions. PERFORMED BY: [facility] [address] [place] [address] PATHOLOGIST PIE TOPPER JOLIE MASON M.D. Performed By: #### C BC, FIB-C, PP #### [facility] [address] Fibrinogen 166 mg/dL Low 200-393 [facility] Comment on above: Order Comment: Comme nt Every 6 hours while on tPA Result Comment: A he matocrit value greater than 55% may lead to inaccurate results in coagulation testing. Patients having hematocrit values >55% require a special collection tube for coagulation studies. Please contact the laboratory at [phone] for redraw instructions. PERFORMED BY: [place] [address] PATHOLOGIST PIE TOPPER JOLIE MASON M.D. Performed By: #### C BC, FIB-C, PP #### [facility] [address] Glucose [Mass/volume] in Ser um or PlasmaOrdered By: Niko Del Angel on 09-15-2023 Glucose [Mass/Vol] 95 mg/dL Normal 70-100 [facility] Comment on above: ADA recommended refe rence rangeRandom Glucose Reference Range is dependent on time and content of last meal. Glucose of more than 200 mg/dL in a nonstressed, ambulatory subject supports the diagnosis of Diabetes Mellitus. Result Comment: [place] om Glucose Reference Range is dependent on time and content of last meal. Glucose of more than 200 mg/dL in a nonstressed, ambulatory subject supports the diagnosis of Diabetes Mellitus. ADA recommended reference range Performed By: #### B MP ####[facility] No Panel InformationOrdered By: Niko Del Angel on 09-15-2023 Estimated GFR (CKD-EPI) > 60.0 mL/Min [facility] Creatinine Clearance (Chem 95.43 [facility] Potassium [Moles/volume] in Serum or PlasmaOrdered By: Niko Del Angel on 09-15-2023 Potassium [Moles/Vol] 4.7 mmol/L Normal 3.5-5.1 [facility] Comment on above: Performed By: #### B MP ####[address] Serum or plasma anion gap de terminationOrdered By: Niko Del Angel on 09-15-2023 Anion gap [Moles/Vol] 5.8 mmol/L Low 6.0-15.0 [facility] Comment on above: Performed By: #### B MP ####[address] Sodium [Moles/volume] in Ser um or PlasmaOrdered By: Niko Del Angel on 09-15-2023 Sodium [Moles/Vol] 137 mmol/L Normal 136-145 [facility] Comment on above: Performed By: #### B MP ####[address] Urea nitrogen [Mass/volume] in Serum or PlasmaOrdered By: Niko Del Angel on 09-15-2023 Urea nitrogen [Mass/Vol] 11 mg/dL Normal 7-25 [facility] Comment on above: Performed By: #### B MP ####[address] ABO/Rh Retypeon 09-14-2023 ABO/RH Recheck Result Positive Normal [facility] Comment on above: Result Comment: PERF ORMED BY: [address] [place] [address] PATHOLOGIST PIE TOPPER JOLIE MASON M.D. Blood Urea Nitrogenon 2023 Urea nitrogen [Mass/Vol] 16 mg/dL Normal 7-25 [facility] Comment on above: Performed By: #### C REAT, BUN #### [address] Coagulation Profileon 2023 aPTT Coag (Bld) [Time] 32.2 s Normal 25.1-36.5 Th e [facility] Comment on above: Order Comment: Comme nt Every 6 hours while on tPA Result Comment: A he matocrit value greater than 55% may lead to inaccurate results in coagulation testing. Patients having hematocrit values >55% require a special collection tube for coagulation studies. Please contact the laboratory at [phone] for redraw instructions. Performed By: #### C BC, FIB-C, PP #### [facility] [address] [place] [id number] [facility] INR Coag (PPP) [Relative time] 1.0 {INR} Normal [facility] Comment on above: Order Comment: [...] - 4.5 Performed By: #### C BC, FIB-C, PP #### [facility] [address] [place] [id number] [facility] PT Coag (PPP) [Time] 11.5 s Normal 9.0-12.9 [facility] Comment on above: Order Comment: Comme nt Every 6 hours while on tPA Result Comment: A he matocrit value greater than 55% may lead to inaccurate results in coagulation testing. Patients having hematocrit values >55% require a special collection tube for coagulation studies. Please contact the laboratory at [phone] for redraw instructions. Performed By: #### C BC, FIB-C, PP #### [facility] [address] [place] [id number] [facility] aPTT Coag (Bld) [Time] 30.0 s Normal 25.1-36.5 [facility] e [facility] Comment on above: Order Comment: Comme nt Every 6 hours while on tPA Result Comment: A he matocrit value greater than 55% may lead to inaccurate results in coagulation testing. Patients having hematocrit values >55% require a special collection tube for coagulation studies. Please contact the laboratory at [phone] for redraw instructions. Performed By: #### C BC, FIB-C, PP #### [facility] [address] [place] [id number] [facility] INR Coag (PPP) [Relative time] 1.0 {INR} Normal [facility] Comment on above: Order Comment: [...] - 4.5 Performed By: #### C BC, FIB-C, PP #### [place] [id number] [facility] PT Coag (PPP) [Time] 12.1 s Normal 9.0-12.9 [facility] Comment on above: Order Comment: Comme nt Every 6 hours while on tPA Result Comment: A he matocrit value greater than 55% may lead to inaccurate results in coagulation testing. Patients having hematocrit values >55% require a special collection tube for coagulation studies. Please contact the laboratory at [phone] for redraw instructions. Performed By: #### C BC, FIB-C, PP #### [place] [id number] [place] aPTT Coag (Bld) [Time] 81.7 s High 25.1-36.5 [facility] e [facility] Comment on above: Order Comment: Comme nt Every 6 hours while on tPA Result Comment: A he matocrit value greater than 55% may lead to inaccurate results in coagulation testing. Patients having hematocrit values >55% require a special collection tube for coagulation studies. Please contact the laboratory at [phone] for redraw instructions. Performed By: #### C BC, FIB-C, PP #### [place] [id number] [place] INR Coag (PPP) [Relative time] 1.1 {INR} Normal [facility] Comment on above: Order Comment: [...] - 4.5 Performed By: #### C BC, FIB-C, PP #### [address] PT Coag (PPP) [Time] 12.4 s Normal 9.0-12.9 [facility] Comment on above: Order Comment: Comme nt Every 6 hours while on tPA Result Comment: A he matocrit value greater than 55% may lead to inaccurate results in coagulation testing. Patients having hematocrit values >55% require a special collection tube for coagulation studies. Please contact the laboratory at [phone] for redraw instructions. Performed By: #### C BC, FIB-C, PP #### [address] Complete Blood Count Auto Di ffon 09-14-2023 Basophils (Bld) [#/Vol] 0.0 10*3/uL Normal 0.0-0.2 [facility] Comment on above: Order Comment: Comme nt Every 6 hours while on tPA Result Comment: PERF ORMED BY: [place] [address] PATHOLOGIST PIE TOPPER JOLIE MASON M.D. Performed By: #### C BC, FIB-C, PP #### [address] Basophils/100 WBC (Bld) 0.8 % Normal . [facility] Comment on above: Order Comment: Comme nt Every 6 hours while on tPA Performed By: #### C BC, FIB-C, PP #### [address] Eosinophils (Bld) [#/Vol] 0.3 10*3/uL Normal 0.0-0.45 [facility] Comment on above: Order Comment: Comme nt Every 6 hours while on tPA Performed By: #### C BC, FIB-C, PP #### [address] Eosinophils/100 WBC (Bld) 4.1 % Normal . [facility] Comment on above: Order Comment: Comme nt Every 6 hours while on tPA Performed By: #### C BC, FIB-C, PP #### [address] Erythrocyte distribution width (RBC) [Ratio] 14.1 % Normal 12.0-14.8 [facility] Comment on above: Order Comment: Comme nt Every 6 hours while on tPA Performed By: #### C BC, FIB-C, PP #### [address] Hematocrit (Bld) [Volume fraction] 44.4 % Normal 38.8-50.0 [facility] Comment on above: Order Comment: Comme nt Every 6 hours while on tPA Performed By: #### C BC, FIB-C, PP #### [address] Hemoglobin (Bld) [Mass/Vol] 15.0 g/dL Normal 13.0-17.0 [facility] Comment on above: Order Comment: Comme nt Every 6 hours while on tPA Performed By: #### C BC, FIB-C, PP #### [place] [address] [place] Lymphocytes (Bld) [#/Vol] 1.3 10*3/uL Normal 1.00-4.8 [facility] Comment on above: Order Comment: Comme nt Every 6 hours while on tPA Performed By: #### C BC, FIB-C, PP #### [place] [address] [place] Lymphocytes/100 WBC (Bld) 22.1 % Normal . [facility] Comment on above: Order Comment: Comme nt Every 6 hours while on tPA Performed By: #### C BC, FIB-C, PP #### [address] MCH (RBC) [Entitic mass] 33.9 pg Normal 27.5-35.2 [facility] Comment on above: Order Comment: Comme nt Every 6 hours while on tPA Performed By: #### C BC, FIB-C, PP #### [address] MCV (RBC) [Entitic vol] 100.2 fL Normal 83.5-101 [facility] Comment on above: Order Comment: Comme nt Every 6 hours while on tPA Performed By: #### C BC, FIB-C, PP #### [address] Mean Corpuscular HGB Conc 33.8 g/dL Normal 32.5-35.6 [facility] Comment on above: Order Comment: Comme nt Every 6 hours while on tPA Performed By: #### C BC, FIB-C, PP #### [address] Monocytes (Bld) [#/Vol] 0.4 10*3/uL Normal 0.0-0.8 [facility] Comment on above: Order Comment: Comme nt Every 6 hours while on tPA Performed By: #### C BC, FIB-C, PP #### [address] Monocytes/100 WBC (Bld) 7.3 % Normal . [facility] Comment on above: Order Comment: Comme nt Every 6 hours while on tPA Performed By: #### C BC, FIB-C, PP #### [address] Neutrophils (Bld) [#/Vol] 4.0 10*3/uL Normal 1.8-7.7 [facility] Comment on above: Order Comment: Comme nt Every 6 hours while on tPA Performed By: #### C BC, FIB-C, PP #### [address] Neutrophils/100 WBC (Bld) 65.7 % Normal . [facility] Comment on above: Order Comment: Comme nt Every 6 hours while on tPA Performed By: #### C BC, FIB-C, PP #### [address] NRBC% 0.2 /100{WBC} Normal 0-0.5 [facility] Comment on above: Order Comment: Comme nt Every 6 hours while on tPA Performed By: #### C BC, FIB-C, PP #### [address] Platelet mean volume (Bld) [Entitic vol] 8.0 fL Normal 6.6-10.1 [facility] Comment on above: Order Comment: Comme nt Every 6 hours while on tPA Performed By: #### C BC, FIB-C, PP #### [address] Platelets (Bld) [#/Vol] 153 10*3/uL Normal 150-450 [facility] Comment on above: Order Comment: Comme nt Every 6 hours while on tPA Performed By: #### C BC, FIB-C, PP #### [address] RBC (Bld) [#/Vol] 4.43 10*6/uL Normal 3.90-5.60 [facility] Comment on above: Order Comment: Comme nt Every 6 hours while on tPA Performed By: #### C BC, FIB-C, PP #### [place] [address] [place] WBC (Bld) [#/Vol] 6.1 10*3/uL Normal 4.1-10.5 [facility] Comment on above: Order Comment: Comme nt Every 6 hours while on tPA Performed By: #### C BC, FIB-C, PP #### [place] [address] [place] Basophils (Bld) [#/Vol] 0.0 10*3/uL Normal 0.0-0.2 [facility] Comment on above: Order Comment: Comme nt Every 6 hour while on tPA Result Comment: PERF ORMED BY: [place] [address] PATHOLOGIST PIE TOPPER JOLIE MASON M.D. Performed By: #### F IB-C, CBC, PP #### [address] Basophils/100 WBC (Bld) 0.7 % Normal . [facility] Comment on above: Order Comment: Comme nt Every 6 hour while on tPA Performed By: #### F IB-C, CBC, PP #### [address] Eosinophils (Bld) [#/Vol] 0.2 10*3/uL Normal 0.0-0.45 [facility] Comment on above: Order Comment: Comme nt Every 6 hour while on tPA Performed By: #### F IB-C, CBC, PP #### [address] Eosinophils/100 WBC (Bld) 3.9 % Normal . [facility] Comment on above: Order Comment: Comme nt Every 6 hour while on tPA Performed By: #### F IB-C, CBC, PP #### [address] Erythrocyte distribution width (RBC) [Ratio] 13.6 % Normal 12.0-14.8 [facility] Comment on above: Order Comment: Comme nt Every 6 hour while on tPA Performed By: #### F IB-C, CBC, PP #### [address] Hematocrit (Bld) [Volume fraction] 44.6 % Normal 38.8-50.0 [facility] Comment on above: Order Comment: Comme nt Every 6 hour while on tPA Performed By: #### F IB-C, CBC, PP #### [address] Hemoglobin (Bld) [Mass/Vol] 14.9 g/dL Normal 13.0-17.0 [facility] Comment on above: Order Comment: Comme nt Every 6 hour while on tPA Performed By: #### F IB-C, CBC, PP #### [address] Lymphocytes (Bld) [#/Vol] 1.4 10*3/uL Normal 1.00-4.8 [facility] Comment on above: Order Comment: Comme nt Every 6 hour while on tPA Performed By: #### F IB-C, CBC, PP #### [address] Lymphocytes/100 WBC (Bld) 22.1 % Normal . [facility] Comment on above: Order Comment: Comme nt Every 6 hour while on tPA Performed By: #### F IB-C, CBC, PP #### [address] MCH (RBC) [Entitic mass] 33.5 pg Normal 27.5-35.2 [facility] Comment on above: Order Comment: Comme nt Every 6 hour while on tPA Performed By: #### F IB-C, CBC, PP #### [address] MCV (RBC) [Entitic vol] 100.4 fL Normal 83.5-101 [facility] Comment on above: Order Comment: Comme nt Every 6 hour while on tPA Performed By: #### F IB-C, CBC, PP #### [address] Mean Corpuscular HGB Conc 33.4 g/dL Normal 32.5-35.6 [facility] Comment on above: Order Comment: Comme nt Every 6 hour while on tPA Performed By: #### F IB-C, CBC, PP #### [address] Monocytes (Bld) [#/Vol] 0.5 10*3/uL Normal 0.0-0.8 [facility] Comment on above: Order Comment: Comme nt Every 6 hour while on tPA Performed By: #### F IB-C, CBC, PP #### [address] Monocytes/100 WBC (Bld) 7.5 % Normal . [facility] Comment on above: Order Comment: Comme nt Every 6 hour while on tPA Performed By: #### F IB-C, CBC, PP #### [address] Neutrophils (Bld) [#/Vol] 4.0 10*3/uL Normal 1.8-7.7 [facility] Comment on above: Order Comment: Comme nt Every 6 hour while on tPA Performed By: #### F IB-C, CBC, PP #### [address] Neutrophils/100 WBC (Bld) 65.8 % Normal . [facility] Comment on above: Order Comment: Comme nt Every 6 hour while on tPA Performed By: #### F IB-C, CBC, PP #### [address] NRBC% 0.0 /100{WBC} Normal 0-0.5 [facility] Comment on above: Order Comment: Comme nt Every 6 hour while on tPA Performed By: #### F IB-C, CBC, PP #### [address] Platelet mean volume (Bld) [Entitic vol] 7.7 fL Normal 6.6-10.1 [facility] Comment on above: Order Comment: Comme nt Every 6 hour while on tPA Performed By: #### F IB-C, CBC, PP #### [place] [address] [place] Platelets (Bld) [#/Vol] 168 10*3/uL Normal 150-450 [facility] Comment on above: Order Comment: Comme nt Every 6 hour while on tPA Performed By: #### F IB-C, CBC, PP #### [address] RBC (Bld) [#/Vol] 4.45 10*6/uL Normal 3.90-5.60 [facility] Comment on above: Order Comment: Comme nt Every 6 hour while on tPA Performed By: #### F IB-C, CBC, PP #### [address] WBC (Bld) [#/Vol] 6.1 10*3/uL Normal 4.1-10.5 [facility] Comment on above: Order Comment: Comme nt Every 6 hour while on tPA Performed By: #### F IB-C, CBC, PP #### [place] [address] [place] Basophils (Bld) [#/Vol] 0.0 10*3/uL Normal 0.0-0.2 [facility] Comment on above: Order Comment: Comme nt Every 6 hours while on tPA Result Comment: PERF ORMED BY: [place] [address] PATHOLOGIST PIE TOPPER JOLIE MASON M.D. Performed By: #### C BC, FIB-C, PP #### [place] [address] [place] Basophils/100 WBC (Bld) 0.7 % Normal . [facility] Comment on above: Order Comment: Comme nt Every 6 hours while on tPA Performed By: #### C BC, FIB-C, PP #### [place] [address] [place] Eosinophils (Bld) [#/Vol] 0.2 10*3/uL Normal 0.0-0.45 [facility] Comment on above: Order Comment: Comme nt Every 6 hours while on tPA Performed By: #### C BC, FIB-C, PP #### [address] Eosinophils/100 WBC (Bld) 3.3 % Normal . [facility] Comment on above: Order Comment: Comme nt Every 6 hours while on tPA Performed By: #### C BC, FIB-C, PP #### [address] Erythrocyte distribution width (RBC) [Ratio] 14.1 % Normal 12.0-14.8 [facility] Comment on above: Order Comment: Comme nt Every 6 hours while on tPA Performed By: #### C BC, FIB-C, PP #### [address] Hematocrit (Bld) [Volume fraction] 45.5 % Normal 38.8-50.0 [facility] Comment on above: Order Comment: Comme nt Every 6 hours while on tPA Performed By: #### C BC, FIB-C, PP #### [address] Hemoglobin (Bld) [Mass/Vol] 15.5 g/dL Normal 13.0-17.0 [facility] Comment on above: Order Comment: Comme nt Every 6 hours while on tPA Performed By: #### C BC, FIB-C, PP #### [address] Lymphocytes (Bld) [#/Vol] 1.3 10*3/uL Normal 1.00-4.8 [facility] Comment on above: Order Comment: Comme nt Every 6 hours while on tPA Performed By: #### C BC, FIB-C, PP #### [address] Lymphocytes/100 WBC (Bld) 22.0 % Normal . [facility] Comment on above: Order Comment: Comme nt Every 6 hours while on tPA Performed By: #### C BC, FIB-C, PP #### [address] MCH (RBC) [Entitic mass] 33.9 pg Normal 27.5-35.2 [facility] Comment on above: Order Comment: Comme nt Every 6 hours while on tPA Performed By: #### C BC, FIB-C, PP #### [address] MCV (RBC) [Entitic vol] 99.4 fL Normal 83.5-101 [facility] Comment on above: Order Comment: Comme nt Every 6 hours while on tPA Performed By: #### C BC, FIB-C, PP #### [address] Mean Corpuscular HGB Conc 34.1 g/dL Normal 32.5-35.6 [facility] Comment on above: Order Comment: Comme nt Every 6 hours while on tPA Performed By: #### C BC, FIB-C, PP #### [address] Monocytes (Bld) [#/Vol] 0.5 10*3/uL Normal 0.0-0.8 [facility] Comment on above: Order Comment: Comme nt Every 6 hours while on tPA Performed By: #### C BC, FIB-C, PP #### [address] Monocytes/100 WBC (Bld) 8.1 % Normal . [facility] Comment on above: Order Comment: Comme nt Every 6 hours while on tPA Performed By: #### C BC, FIB-C, PP #### [address] Neutrophils (Bld) [#/Vol] 3.9 10*3/uL Normal 1.8-7.7 [facility] Comment on above: Order Comment: Comme nt Every 6 hours while on tPA Performed By: #### C BC, FIB-C, PP #### [address] Neutrophils/100 WBC (Bld) 65.9 % Normal . [facility] Comment on above: Order Comment: Comme nt Every 6 hours while on tPA Performed By: #### C BC, FIB-C, PP #### [address] NRBC% 0.1 /100{WBC} Normal 0-0.5 [facility] Comment on above: Order Comment: Comme nt Every 6 hours while on tPA Performed By: #### C BC, FIB-C, PP #### [address] Platelet mean volume (Bld) [Entitic vol] 8.1 fL Normal 6.6-10.1 [facility] Comment on above: Order Comment: Comme nt Every 6 hours while on tPA Performed By: #### C BC, FIB-C, PP #### [address] Platelets (Bld) [#/Vol] 179 10*3/uL Normal 150-450 [facility] Comment on above: Order Comment: Comme nt Every 6 hours while on tPA Performed By: #### C BC, FIB-C, PP #### [address] RBC (Bld) [#/Vol] 4.58 10*6/uL Normal 3.90-5.60 [facility] Comment on above: Order Comment: Comme nt Every 6 hours while on tPA Performed By: #### C BC, FIB-C, PP #### [address] WBC (Bld) [#/Vol] 5.9 10*3/uL Normal 4.1-10.5 [facility] Comment on above: Order Comment: Comme nt Every 6 hours while on tPA Performed By: #### C BC, FIB-C, PP #### [address] Creatinineon 09-14-2023 Creatinine [Mass/Vol] 0.88 mg/dL Normal 0.70-1.30 [facility] Comment on above: Performed By: #### C REAT, BUN #### [address] Creatinine Clr Calc Pharmacy 86.76 Normal [facility] Comment on above: Result Comment: PERF ORMED BY: [place] [address] PATHOLOGIST PIE TOPPER JOLIE MSAON M.D. Performed By: #### C REAT, BUN #### [address] GFR/1.73 sq M.predicted MDRD (S/P/Bld) [Vol rate/Area] mL/min/{1.73_m2} Normal [facility] Comment on above: Performed By: #### C REAT, BUN #### [address] Fibrinogenon 09-14-2023 Fibrinogen 215 mg/dL Normal 200-393 [facility] Comment on above: Order Comment: Comme nt Every 6 hours while on tPA Result Comment: --- 09/14/232253 --- Fib previously reported as: 194 L mg/dL A hematocrit value greater than 55% may lead to inaccurate results in coagulation testing. Patients having hematocrit values >55% require a special collection tube for coagulation studies. Please contact the laboratory at [phone] for redraw instructions. PERFORMED BY: [place] [address] PATHOLOGIST PIE TOPPER JOLIE MASON M.D. Performed By: #### C BC, FIB-C, PP #### [address] Fibrinogen 224 mg/dL Normal 200-393 [facility] Comment on above: Order Comment: Comme nt Every 6 hours while on tPA Result Comment: A he matocrit value greater than 55% may lead to inaccurate results in coagulation testing. Patients having hematocrit values >55% require a special collection tube for coagulation studies. Please contact the laboratory at [phone] for redraw instructions. PERFORMED BY: [place] [address] PATHOLOGIST PIE TOPPER JOLIE MASON M.D. Performed By: #### C BC, FIB-C, PP #### [address] Fibrinogen 244 mg/dL Normal 200-393 [facility] Comment on above: Order Comment: Comme nt Every 6 hours while on tPA Result Comment: A he matocrit value greater than 55% may lead to inaccurate results in coagulation testing. Patients having hematocrit values >55% require a special collection tube for coagulation studies. Please contact the laboratory at [phone] for redraw instructions. PERFORMED BY: [address] [address] PATHOLOGIST PIE TOPPER JOLIE MASON M.D. Performed By: #### C BC, FIB-C, PP #### [place] [id number] [place] Type and Screenon 09-14-2023 ABO and Rh group Nom (Bld) Blood group O Rh(D) positive Normal [facility] Comment on above: Result Comment: PERF ORMED BY: [place] [address] PATHOLOGIST PIE TOPPER JOLIE MASON M.D. US ankle/arm indiceson 09-12 US ankle/arm indices [facility] Main Carpenter [address] [place] [id number] Ultrasound Report Signed Patient: Pawan Bustillo MR#: [id number] 3 : 1955 Acct:[id number] Age/Sex: 67 / M ADM Date: 09/12/23 Loc: [facility] Room: Type: [facility] Attending Dr: Tom Schroeder MD Ordering Provider: [...] right lower extremity Impression dictated by: Tom Schroedre M.D.09/12/2023 12:20 PM Dictation Location: [place] [address] Tech: Nikole Adore Transcribed By: NOÉ 09/12/23 1220 Dictated By: Tom Schroeder MD 09/12/23 1218 Signed By: 09/12/23 1220 Normal [facility] Creatinine [Mass/volume] in Serum or PlasmaOrdered By: Tom Schroeder on 05-18-2023 Creatinine [Mass/Vol] 0.89 mg/dL 0.70-1.30 [facility] No Panel InformationOrdered By: Tom Schroeder on 05-18-2023 Estimated GFR (CKD-EPI) > 60.0 mL/Min [facility] Creatinine Clearance (Chem 88.40 [facility] Urea nitrogen [Mass/volume] in Serum or PlasmaOrdered By: Tom Schroeder on 05-18-2023 Urea nitrogen [Mass/Vol] 17 mg/dL 7-25 [facility] Creatinine (Bld) [Mass/Vol]O rdered By: Madie Honeycutt on 05-02-2023 Creatinine [Mass/Vol] 1.0 mg/dL 0.6-1.3 [facility] Comment on above: ER/ESD physician is notified/shown all ISTAT results.Critical values may be confirmed by laboratory testing ifdeemed necessary by ER attending doctor. No Panel InformationOrdered By: Madie Honeycutt on 05-02-2023 Bedside Estimated GFR (eGFR) > 60.0 [facility] CBC AUTO DIFFon 11-01-2022 BASO # 0.0 103/ul Normal 0.0-0.1 [facility] Comment on above: Performed By: #### C BC #### [facility] [address] [place] [address] [address] Katyh Chang Basophils/100 WBC (Bld) 0.2 % Normal 0.2-2.0 [facility] Comment on above: Performed By: #### C BC #### [facility] [address] [place] [address] Dr. Kathy Chang EO # 0.0 103/ul Normal 0.0-0.7 [facility] Comment on above: Performed By: #### C BC #### [facility] [address] [place] [address] Dr. Kathy Chang Eosinophils/100 WBC (Bld) 0.1 % Critically low 0.9-7.0 [facility] Comment on above: Performed By: #### C BC #### [facility] [address] [place] [address] Dr. Kathy Chang Erythrocyte distribution width (RBC) [Ratio] 12.9 % Normal 11.0-15.0 [facility] Comment on above: Performed By: #### C BC #### [facility] [address] [place] [address] Dr. Kathy Chang Hematocrit (Bld) [Volume fraction] 47.6 % Normal 42.0-54.0 [facility] Comment on above: Performed By: #### C BC #### [facility] [address] [place] [address] Dr. Kathy Chang Hemoglobin (Bld) [Mass/Vol] 16.1 g/dL Normal 14.0-18.0 [facility] Comment on above: Performed By: #### C BC #### [facility] [address] [place] [address] Dr. Kathy Chang IG # 0.07 10e3/ul Critically high 0.00-0.03 [facility] Comment on above: Performed By: #### C BC #### [facility] [address] [place] [address] Dr. Kathy Chang IG % 0.4 % Normal 0.0-0.5 [facility] Comment on above: Performed By: #### C BC #### [facility] [address] [place] [address] Dr. Kathy Chang LYMPH # 1.0 103/ul Critically low 1.2-3.8 [facility] Comment on above: Performed By: #### C BC #### [facility] [address] [place] [address] [address] Kathy Chang Lymphocytes/100 WBC (Bld) 6.0 % Critically low 20.5-60.0 [facility] Comment on above: Performed By: #### C BC #### [facility] [address] [place] [address] Dr. Kathy Chang MANUAL DIFF REQ NO Normal [facility] Comment on above: Performed By: #### C BC #### [facility] [address] [place] [address] Dr. Kathy Chang MCH (RBC) [Entitic mass] 32.8 pg Normal 25.9-34.0 [facility] Comment on above: Performed By: #### C BC #### [facility] [address] [place] [address] Dr. Kathy Chang MCHC (RBC) [Mass/Vol] 33.8 g/dL Normal 29.9-35.2 [facility] Comment on above: Performed By: #### C BC #### [facility] [address] [place] [address] Dr. Kathy Chang MCV (RBC) [Entitic vol] 96.9 fL Critically high 80.0-94.0 [facility] Comment on above: Performed By: #### C BC #### [facility] [address] [place] [address] Dr. Kathy Chang MONO # 0.8 103/ul Normal 0.3-0.8 [facility] Comment on above: Performed By: #### C BC #### [facility] [address] [place] [address] Dr. Kathy Chang Monocytes/100 WBC (Bld) 5.1 % Normal 1.7-12.0 [facility] Comment on above: Performed By: #### C BC #### [facility] [address] [place] [address] Dr. Kathy Chang NEUT # 13.9 103/ul Critically high 1.4-6.5 [facility] Comment on above: Performed By: #### C BC #### [facility] [address] [place] [address] [address] Kathy Chang Neutrophils/100 WBC (Bld) 88.2 % Critically high 43.0-75.0 [facility] Comment on above: Performed By: #### C BC #### [facility] [address] [place] [address] [address] Kathy Chang Platelet mean volume (Bld) [Entitic vol] 9.2 fL Critically low 9.5-13.5 [facility] Comment on above: Performed By: #### C BC #### [facility] [address] [place] [address] [address] Kathy Chang PLT 190 103/ul Normal 150-450 [facility] Comment on above: Performed By: #### C BC #### [facility] [address] [place] [address] Dr. Kathy Chang RBC 4.91 106/ul Normal 4.70-6.10 [facility] Comment on above: Performed By: #### C BC #### [facility] [address] [place] [address] Dr. Katyh Chang WBC 15.8 103/ul Critically high 4.0-11.0 [facility] Comment on above: Performed By: #### C BC #### [facility] [address] [place] [address] Dr. Kathy Chang PROF CHEM 8 (BAS METB)on Anion gap [Moles/Vol] 13.4 mmol/L Normal Th [facility] Comment on above: Performed By: #### B MP #### [facility] [address] [place] [address] Dr. Kathy Chang Calcium [Mass/Vol] 9.2 mg/dL Normal 8.5-10.1 [facility] Comment on above: Performed By: #### B MP #### [facility] [address] [place] [address] Dr. Kathy Chang Chloride [Moles/Vol] 100 mmol/L Normal 98-107 [facility] Comment on above: Performed By: #### B MP #### [facility] [address] [place] [address] [address] Kathy Chang CO2 [Moles/Vol] 30.3 mmol/L Normal 21.0-32.0 [facility] Comment on above: Performed By: #### B MP #### [facility] [address] [place] [address] [address] Kathy Chang Creatinine [Mass/Vol] 1.01 mg/dL Normal 0.70-1.30 [facility] Comment on above: Performed By: #### B MP #### [facility] [address] [place] [address] [address] Kathy Chang EGFR-AF THAI >60 Normal >=60 [facility] Comment on above: Performed By: #### B MP #### [facility] [address] [place] [address] [address] Kathy Chang EGFR-NON AF THAI >60 Normal >=60 [facility] Comment on above: Performed By: #### B MP #### [facility] [address] [place] [address] [address] Kathy Chang Glucose [Mass/Vol] 109 mg/dL Critically high 74-106 [facility] Comment on above: Performed By: #### B MP #### [facility] [address] [place] [address] [address] Kathy Chang Potassium [Moles/Vol] 4.7 mmol/L Normal 3.5-5.1 [facility] Comment on above: Performed By: #### B MP #### [facility] [address] [place] [address] [address] Kathy Chang Sodium [Moles/Vol] 139 mmol/L Normal 136-145 [facility] Comment on above: Performed By: #### B MP #### [facility] [address] [place] [address] [address] Kathy Chang Urea nitrogen [Mass/Vol] 19.0 mg/dL Critically high 7.0-18.0 [facility] Comment on above: Performed By: #### B MP #### [facility] [address] [place] [address] [address] Kathy Chang Urea nitrogen/Creatinine [Mass ratio] 18.8 mg/mg Normal [facility] Comment on above: Performed By: #### B MP #### [facility] [address] [place] [address] Dr. Kathy Chang CBC AUTO DIFFon 09-28-2022 BASO # 0.0 103/ul Normal 0.0-0.1 [facility] Comment on above: Performed By: #### C BC #### [facility] [address] [place] [address] Dr. Kathy Chang Basophils/100 WBC (Bld) 0.5 % Normal 0.2-2.0 [facility] Comment on above: Performed By: #### C BC #### [facility] [address] [place] [address] Dr. Kathy Chang EO # 0.2 103/ul Normal 0.0-0.7 [facility] Comment on above: Performed By: #### C BC #### [facility] [address] [place] [address] Dr. Kathy Chang Eosinophils/100 WBC (Bld) 2.6 % Normal 0.9-7.0 [facility] Comment on above: Performed By: #### C BC #### [facility] [address] [place] [address] Dr. Kathy Chang Erythrocyte distribution width (RBC) [Ratio] 12.6 % Normal 11.0-15.0 [facility] Comment on above: Performed By: #### C BC #### [facility] [address] [place] [address] Dr. Kathy Chang Hematocrit (Bld) [Volume fraction] 50.6 % Normal 42.0-54.0 [facility] Comment on above: Performed By: #### C BC #### [facility] [address] [place] [address] Dr. Kathy Chang Hemoglobin (Bld) [Mass/Vol] 17.3 g/dL Normal 14.0-18.0 [facility] Comment on above: Performed By: #### C BC #### [facility] [address] [place] [address] Dr. Kathy Chang IG # 0.08 10e3/ul Critically high 0.00-0.03 [facility] Comment on above: Performed By: #### C BC #### [facility] [address] [place] [address] Dr. Kathy Chang IG % 0.9 % Critically high 0.0-0.5 [facility] Comment on above: Performed By: #### C BC #### [facility] [address] [place] [address] Dr. Kathy Chang LYMPH # 1.8 103/ul Normal 1.2-3.8 [facility] Comment on above: Performed By: #### C BC #### [facility] [address] [place] [address] Dr. Kathy Chang Lymphocytes/100 WBC (Bld) 20.9 % Normal 20.5-60.0 [facility] Comment on above: Performed By: #### C BC #### [facility] [address] [place] [address] Dr. Kathy Chang MANUAL DIFF REQ NO Normal [facility] Comment on above: Performed By: #### C BC #### [facility] [address] [place] [address] Dr. Kathy Chang MCH (RBC) [Entitic mass] 33.1 pg Normal 25.9-34.0 [facility] Comment on above: Performed By: #### C BC #### [facility] [address] [place] [address] Dr. Kathy Chang MCHC (RBC) [Mass/Vol] 34.2 g/dL Normal 29.9-35.2 [facility] Comment on above: Performed By: #### C BC #### [facility] [address] [place] [address] Dr. Kathy Chang MCV (RBC) [Entitic vol] 96.9 fL Critically high 80.0-94.0 [facility] Comment on above: Performed By: #### C BC #### [facility] [address] [place] [address] Dr. Kathy Chang MONO # 0.6 103/ul Normal 0.3-0.8 [facility] Comment on above: Performed By: #### C BC #### [facility] [address] [address] [address] Kathy Chang Monocytes/100 WBC (Bld) 6.7 % Normal 1.7-12.0 [facility] Comment on above: Performed By: #### C BC #### [facility] [address] [address] [address] Kathy Chang NEUT # 6.0 103/ul Normal 1.4-6.5 [facility] Comment on above: Performed By: #### C BC #### [facility] [address] [place] [address] Dr. Kathy Chang Neutrophils/100 WBC (Bld) 68.4 % Normal 43.0-75.0 [facility] Comment on above: Performed By: #### C BC #### [facility] [address] [place] [address] Dr. Kathy Chang Platelet mean volume (Bld) [Entitic vol] 9.0 fL Critically low 9.5-13.5 [facility] Comment on above: Performed By: #### C BC #### [facility] [address] [place] [address] Dr. Kathy Chang PLT 200 103/ul Normal 150-450 [facility] Comment on above: Performed By: #### C BC #### [facility] [address] [place] [address] Dr. Kathy Chang RBC 5.22 106/ul Normal 4.70-6.10 [facility] Comment on above: Performed By: #### C BC #### [facility] [address] [place] [address] Dr. Kathy Chang WBC 8.7 103/ul Normal 4.0-11.0 [facility] Comment on above: Performed By: #### C BC #### [facility] [address] [place] [address] Dr. Kathy Chang LIPID PROFILEon 09-28-2022 CHOL-HDL RATIO NORM SEE BELOW Normal [facility] Comment on above: Result Comment: 3.3 - 4.4 LOW RISK 4.4 - 7.1 AVERAGE RISK 7.1 - 11.0 MODERATE RISK >11.0 HIGH RISK Performed By: #### C MP, LIPID #### [facility] [address] [place] [address] Dr. Kathy Chang Cholesterol [Mass/Vol] 145 mg/dL Normal <=200 [facility] Comment on above: Performed By: #### C MP, LIPID #### [facility] [address] [address] [address] Kathy Chang Cholesterol in HDL [Mass/Vol] 50 mg/dL Normal 40-60 [facility] Comment on above: Performed By: #### C MP, LIPID #### [facility] [address] [place] [address] Dr. Kathy Chang Cholesterol in LDL [Mass/Vol] 83.8 mg/dL Normal [facility] Comment on above: Performed By: #### C MP, LIPID #### [facility] [address] [place] [address] Dr. Kathy Chang Cholesterol.total/Chol esterol in HDL [Mass ratio] 2.9 {ratio} Normal [facility] Comment on above: Performed By: #### C MP, LIPID #### [facility] [address] [place] [address] Dr. Kathy Chang HDL NORMAL > or = 60 mg/dl - LO W CARDIOVASCULAR RISK <40 mg/dl - HIGH CARDIOVASCULAR RISK Normal [facility] Comment on above: Performed By: #### C MP, LIPID #### [facility] [address] [place] [address] Dr. Kathy Chang LDL CALC NORMAL SEE BELOW Normal [facility] Comment on above: Result Comment: <100 mg/dl OPTIMAL 100 - 129 mg/dl NEAR OR ABOVE OPTIMAL 130 - 159 mg/dl BORDERLINE HIGH 160 - 189 mg/dl HIGH >190 mg/dl VERY HIGH Performed By: #### C MP, LIPID #### [facility] [address] [place] [address] Dr. Kathy Chang Triglyceride [Mass/Vol] 56 mg/dL Normal <=150 [facility] Comment on above: Performed By: #### C MP, LIPID #### [facility] [address] [address] [address] Kathy Chang VLDL CALC 11.2 mg/dL Normal [facility] Comment on above: Performed By: #### C MP, LIPID #### [facility] [address] [address] [address] Kathy Chang PROF 14(COMP METB)on 023 Albumin [Mass/Vol] 4.2 g/dL Normal 3.4-5.0 [facility] Comment on above: Performed By: #### C MP, LIPID #### [facility] [address] [place] [address] Dr. Kathy Chang Albumin/Globulin [Mass ratio] 1.4 {ratio} Normal [facility] Comment on above: Performed By: #### C MP, LIPID #### [facility] [address] [place] [address] Dr. Kathy Chang ALP [Catalytic activity/Vol] 88 U/L Normal 46-116 [facility] Comment on above: Performed By: #### C MP, LIPID #### [facility] [address] [place] [address] Dr. Kathy Chang ALT [Catalytic activity/Vol] 26 U/L Normal 16-63 [facility] Comment on above: Performed By: #### C MP, LIPID #### [facility] [address] [place] [address] Dr. Kathy Chang Anion gap [Moles/Vol] 8.8 mmol/L Normal [facility] Comment on above: Performed By: #### C MP, LIPID #### [facility] [address] [place] [address] Dr. Kathy Chang AST [Catalytic activity/Vol] 17 U/L Normal 15-37 [facility] Comment on above: Performed By: #### C MP, LIPID #### [facility] [address] [place] [address] Dr. Kathy Chang Bilirubin [Mass/Vol] 0.7 mg/dL Normal 0.2-1.0 [facility] Comment on above: Performed By: #### C MP, LIPID #### [facility] [address] [place] [address] Dr. Kathy Chang Calcium [Mass/Vol] 9.8 mg/dL Normal 8.5-10.1 [facility] Comment on above: Performed By: #### C MP, LIPID #### [facility] [address] [place] [address] Dr. Kathy Chang Chloride [Moles/Vol] 103 mmol/L Normal 98-107 [facility] Comment on above: Performed By: #### C MP, LIPID #### [facility] [address] [place] [address] Dr. Kathy Chang CO2 [Moles/Vol] 32.3 mmol/L Critically high 21.0-32.0 [facility] Comment on above: Performed By: #### C MP, LIPID #### [facility] [address] [place] [address] Dr. Kathy Chang Creatinine [Mass/Vol] 0.97 mg/dL Normal 0.70-1.30 [facility] Comment on above: Performed By: #### C MP, LIPID #### [facility] [address] [place] [address] Dr. Kathy Chang EGFR-AF THAI >60 Normal >=60 [facility] Comment on above: Performed By: #### C MP, LIPID #### [facility] [address] [place] [address] Dr. Kathy Chang EGFR-NON AF THAI >60 Normal >=60 [facility] Comment on above: Performed By: #### C MP, LIPID #### [facility] [address] [place] [address] Dr. Kathy Chang Globulin (S) [Mass/Vol] 3.1 g/dL Normal [facility] Comment on above: Performed By: #### C MP, LIPID #### [facility] [address] [place] [address] Dr. Kathy Chang Glucose [Mass/Vol] 111 mg/dL Critically high 74-106 [facility] Comment on above: Performed By: #### C MP, LIPID #### [facility] [address] [address] [address] Kathy Chang Potassium [Moles/Vol] 5.1 mmol/L Normal 3.5-5.1 [facility] Comment on above: Performed By: #### C MP, LIPID #### [facility] [address] [place] [address] Dr. Kathy Chang Protein [Mass/Vol] 7.3 g/dL Normal 6.4-8.2 [facility] Comment on above: Performed By: #### C MP, LIPID #### [facility] [address] [address] [address] Kathy Chang Sodium [Moles/Vol] 139 mmol/L Normal 136-145 [facility] Comment on above: Performed By: #### C MP, LIPID #### [facility] [address] [place] [address] Dr. Kathy Chang Urea nitrogen [Mass/Vol] 20.0 mg/dL Critically high 7.0-18.0 [facility] Comment on above: Performed By: #### C MP, LIPID #### [facility] [address] [place] [address] Dr. Kathy Chang Urea nitrogen/Creatinine [Mass ratio] 20.6 mg/mg Normal [facility] Comment on above: Performed By: #### C MP, LIPID #### [facility] [address] [place] [address] Dr. Kathy Chang Lab Reportson 06-18-2022 Lab Reports [id number]:127 Normal [facility] CT CHEST WO CONon 06-16-2022 CT CHEST [...] Marked emphysematous changes. Electronically authenticated by: MUNIR GARCAI Date: 2022-06-16 15:46 Normal [facility] Ambulatory Visit Summaryon 0 04-19-2022 Ambulatory Visit Summary KENY PAWAN L :1955 MRN:[id number] Visit Date:04/19/2022 Ambulatory Visit Instructions Your Diagnosis BPH with urinary obstruction Prostatitis Tests Performed Urnls Dip Stick Auto w/o Microscopy POC 97627 Your Care Team Attending Physician - TSERING [...] What to do next Scheduled Follow-Up Appointments Tuesday 10:45 AM EDT With: TSERING BARRY, Maritza Balderas Where: [facility] [place] Normal [facility] Patient Educationon 04-19-20 Patient Education Infectious Disease [...] Follow these instructions at home: ? Take dmmw-agm-hmubofv and prescription medicines only as told by [...] Docum (more content not included)... Normal [facility] Urology Office/Clinic Noteon 04-19-2022 Urology Office/Clinic Note Chief Complaint Follow up from Cysto/UD HPI Staff Pawan is here today for a 3 month [...] months 10/17/2022 EDT [facility] [address], [place] [address]- [phone] Additional Instructions: PVR PSA Patient Education Prostatitis IRoslyn_, personally scribed for Dr. Scott on 04/19/2022 10:41:43. . Documentation recorded by the olgaibRoslyn monroe, accurately reflects the services(s) I performed and [...] Bilirubin U (more content not included)... Normal [facility] Comment on above: Result Comment: Elec tronically Signed By: Maritza SCOTT MD\.br\Date and Time Signed: 04/19/22 10:43 EDT\.br\Electronically Co-Signed By: Roslyn Rowe MA\.br\Date and Time Co-Signed: 04/19/22 10:42 EDT Coding Summary.on 01-26-2022 Coding Summary. CD:[id number] Gh0bWw +PGhlYWQ+XE9HWDVqI42vyISse S0TL5mHTV2UPBVBYTGKTY0RUW7 yqHD2HHmjB7BqavSn YmpwbLZtIV62YAy0NYY7bSpqJI oduQ0niTUzU0e2SvPiVC23qK24 RImfGKDaOeB6MlVqxsvlbEPz P4ziQqIqrXOlBmc+PHRhYmxlIH jhKTEzCQkpYBVlRuGdzXvwII3e Qm8oXMJmRSDrwFaqyDChKcCr x3fdKCTzJWgiVP8guTuzZ3OuxL J6QKEaa4s5Hw38hQS+PHRkIHN0 nOdqSRajw902GiXyh9vpTZL6 qSAiVFjsWUD7J38ym8I2LONxEC AnRRU8bEB6cG1uvTbugcgbT5Fa hSKmRoF7AXF7mNPvzH2xhMsy kdesqP0aRev+D87GKH4BSFEDCI 8XXtx7D4EcGvnviVV+RK26OIGw US97aIZruJRjb6ryxNf9XbJz PKOhYTL1bCroMWupr1CgASSdF6 4bhPLeg3F6KGOdzYoviEFaZpSp qNH1nY1gCRxvmvoqi8tpgnhj Hgwvg2wedb87uW40X84yNHyyNI KkRHP0KFQfGHHemVxwnd8ueS4k Ii8+ERviu3bym7avxEp0IbQj GCPxoaEwsXsmUNZ7t5HpQm25Z8 TkzHszx6YfDoq7ro13kIKkl0G8 xZZ2YRofKNFvwV5uIDtuZeP1 UWJcTsQuwR82yHDqKTqqCl9ypF ilaRkdTI5sDTSvcqskQLSycQ0e LAGafBNunRjkHD1jWLVyruwf t166GwWpUTP2RNVhnWKqV7IqnU 2sTpFkDSKcKQPaA9WfqDVfGKkx R210SDyaJqV7UVOoztMaH8Gr BBImpNnsKnP3s1I2Oq0Ls9Ywvu mlAOR8VBarPQM7OiY5VlAlFbS8 Y0HxAuh4ZLWnfTvlNM6oV2Ye YCAgsfejrlxlwUZ2MSRoIFZvxF 88kVDcEQteCe6jo5B6f210PPGy WBCxxL78Be6yzFyhGAMgmUDO bM6ejeywr3aewkoyGaGmHODsMK w1CHf9SIFtsWzxTnWsSYB5FoO8 VJO4yNWiwW8jyGdamkmmvJ8h Oyc+E03coW8cNXF7IOE2tcymSF FlraFjNQ23WN79G0SpUgpbrMHv bGU+TDEbouVvcKdlHF8yHhUr f9uxi0StXGsuY3FuVMEqJWmzPa y9QQGtMWG5mIT3nQ3aPGFgEWil d3E8fWD1J8VaqeKyso5sq1ik ZVAoWAzqR38gyXHpd9U5MUSarW M3SZTzaFsqEjIasZ21Fzm+PGNv xAgqj0GnHmryo7muo1tdjBm3 SyKpIVCnqgYjyMjkBYA3d1QsMe 23K46tQDijAXYzAYEfMLOwFYNn zHzacv9jdA4uDj5+PGNvbCB3 cPK8fG8pENUnYnE1TScjH530Zp WbuDIrRszyy2czk6rtwVy2SkAa RSIxymObbDrxMRQ0u3FtXy52 X59zUPgwWBYtVBPuOQYpKHYhcZ mopj1afX5oGg6+TP8cz4arer64 gD42tBF+DCNfKJL1fSkaXOgj KBQmxX3aQWznXhU2DSPnTfRpxX 01bRYwEHovAk5itBxjdJgbNC8g XLNuedtgi314HuMvn0pcZPUg rEBcTGtsIXZ6Q25gd3Q5TZGmRP DnLLU8xOU3hB8mrQejjfacdRGk ePhoalWfpFtdYUywYFbwW588 IHRvcDsnPlBhdGllbnQgTmFtZT u2P8QkAhw7SHHcfUxtSN4vcGAl EEolKo2fbZdgbUwpFS9vUDSr iktcc179PgFlm3mkZUQpxTGiOP ymPLQ6Y56kl4H8FTMhULOlHJA8 fUA1sP9kqHpesoavvHVkjWhr wnVdnBkaMGukOPrbV291OABcoI ucOcJxdqOpSOCymEZ1YI09XU82 oJSfd3I6uRE2I0YmXIRzvhhj wbduyTH2KEBlHRDyjL59Ah6ceS onUg9bTDSxUEU6WNPzmUYwN2Fu rC2cByGqNODnQHCyQ5UuiSOx NCjbP703DQxaQdC8DNPqhqJkF7 PuKQVmhVfyKnO8k7X3Gx4RR0V8 JE97KS35oVQzf1R4kHI5H5Xm NGKmimsnjcduiZR0VBTwLLCsfC 12Qv5bhHrnMw6lQETdXZE7LIHj xSXxL7XklZ8gUlVqISIzXCAu Z0NszIUdDBfnQ312VNshSqF4TU AdojPqT6HpCLRluSpwKjB9c5V9 Pd5DZVm6KE80VV72hGVjw2C2 uBL8J2YvYUJdslqrtltymKM4FI TxMRJtnA17Vy2tjJmcHc4fGMXc SJK9ALLwwUSpL3TnxK2qPmSy QZArHCHtH4XqiOSjSWzsJ937OO eiAmW6QEBjpmIuW0SnKHXjyEdz NhK5i1M9Ui1QRXKrPB92BHA5 uEC1YT15OB63T8UzZybclPYfaW U+PHRhYmxlIHdpZHRoPScxMDAl IdDouKcaWJ2bOu2lPANxTRSu xOkheQFwOfIuw9raNJPgTIcbTP 7gwZhiP6YshZM3WUNaq6n5Gs49 L01xR9NolMO+MHIjzGI2pFX0 cN8vYjKyRnX6WWvtU395HyBmoG HeSdbil1wld6mptDa5IbO2DYEr rwUagSueEBY4q4PbKp19W07f IHdpZHRoPSIxNSUiIHZhbGlnbj 5wpB6pQx6+COJyrJO4fQW1pO6g BhUbBaK2VKipT648SwNedMGh Istth3pzr8ftrMw6KpIqRWEkbd DfnYgdKXU5t1BeUn43E6LptJya n9KvEcf3jl06wMSii6I2hHS2 N7HaROPdnubceNKqdHdvGS8eZN VputsjOQTspB6dOQFuQ2z4HjBp TvW9UXskO1GydkE8TSCzzDRc ASyyIRN8K99ru7G2AUJvHELrQW G1kJB4sD1uhAznqlxiiRGvoArf scBrvZmlIBdvYFpjD028HPPu wSnlDHWksM1nPKFxnUOrqGlhHS 4wNTBpbjsnPkhBWSwgQkVSTkFS GOJUGM09JB12cRAip3P7aRQ7 J0BfUHVzvndsmvfpsYI3CAHoJT WviG34tAIjZEdhKj9ka2G0m567 TFZmWSJdhL25Yq8prOpmSPDh lDAHaV5kogegj2zdigwnPuVaDB XsQTh3ESt4PZSttGjbXlXrBPP3 FuI3XSQ0iYKcaG3ivHzsgxpx yS2lBhy+VAIcGzyfTEy9YjivoP Q+PPFzLBT7cEsgZEymQRKirC8x BZOrZ3v4VqUePpT5ZAddG5At RPSsrmjyDb21qT6oUaSkFiW0LP nyO3AeshU6GYYgwHBnDDufLVA4 Q53yg0B3QKUtIJGuOMR7aBX2 oX8hzOzkkccjvOZrnDdspgQfeD kmLInnYSulA987GKMxwXipEvR5 MMtgSMJeNX36XY87sIPdo7V0 xQL4G8QhYVGcixwazllzvIZ3ZY FhSKKhmS92rBIgGPfcVe2ab0H1 o101IRAcRHNhbZ18Le6xhIvu CRUmkUOIaL6naweya2ahcsjzWi WnRBGyDGm8HIt1ZCMmbBcuTvQy EMP3KcP7JHW8qJWzoD9ajDla bgtboE0sOyx+TWFsZTwvdGQ+PH HmTUB7nLlpAPjtYLNgcP2pZNJb J4x7NjVaGuF4SKrmH7XdKDDg atxvWj45pO1tRzDcIuK4OEboK5 KvbcA0OCZpfDBhSYlcNKM2M69b p4G9KUBmHMTuITG2gRH0eN1m bGlnbjogbGVmdDsgdmVydGljYW hjONdpM855VYSszApmOs44ySAu yMfkguY3U4KrVhsdfUW+PC90 AOIfQR80lLEnzVSmd2bhhCk2Jx HfZFDuZTM7yFfaVOxho4HmNYLo G73ynSIjb0W7CWAsqPaswKEq SbSuwBP4tP5sWPamcrskl4mwfb aiAvthn9yfzb52lL55S17sACgm XIWlRSHhQTElAUVrtXadgx8h wD1hTr1+IJGjlHX1uXY0kL5mVb XfZzU3LDusV822UiCwrEXzTszb a8qbg6xkkBm9AbEpUNUqghNk pMmmGRG9m8DaRy73E03mTMjhPQ ZoEVBaRJPcGRXltAswpe4taE5f Ii8+PJ7dj0tkbm58pP46eKP+ AJHpQZQ3xRulMAmmUUQhvR0gYS moUrG6QNBeRaBlyW43hYHuUCuh Cv0viFbkdBosRB5qDJRvsduf a402SdHcu9wpXVKheLVoZAfeSG U6A19dq5Q9GUUxZHPzEPJ7oBT7 mM0eeMkywkvjfHYbyHlxqiDw oUaePDluCOjtQ726FOEnoGxzNi EycYEzZ4hyreTHLC1tZkakcFP+ LBVlXOP4tJlsLGyjTBTclA0b WICtO8z4SqLqYgV9RPebA1Jcht B7VPWngTQoCNOatWQIuN8jyyvj d2xritjkCwBnDYJfZSr9NUy3 CLFaqXigLaTrRDC4ZaM6SXP7kY MpnH3xeIpcvjeloC5oMwz+RklO OjwvdGQ+IMOsQJJ8iIkuBLac RREnqP4qJPTnJ5p6GaJnLmW3OK zkM4VnjlS0UUBiiGWnGENapVYD mY4eqlpii2rwjvbnYyEoNASs FQx0MHm8KLGrnWvpIfLzGBQ8Ls E1EHC4kWTztY3tzZccbrygyC1i Oyc+TVJOOjwvdGQ+PHRkIHN0 gZibXHdeJQBbwE3yGLRrR3i4Ng HxZfC5DHweA0JtrtK8RKXpxYMi BBYmdRNLdV1nhewzv1beyiam XwWoZHSaKEp8NQd7TTEgcUguCt OlIGA3SxL9OOU1kCDgtW7tnKgd vuvxxI5tAxq+MLP9URB6BV34 ZE23L6YkZzpelKPspPL+PHRhYm xlIHdpZHRoPScxMDAlJyBzdHls PE5pKn4eUBYhZAOzwYctvXHr OiBj (more content not included)... Normal [facility] Consent for Procedure/Surger yon 01-20-2022 Consent for Procedure/Surgery [id number]:127 Normal [facility] IntraOperative Documentson 0 01-20-2022 IntraOperative Documents [id number]#[id number]:127 Normal [facility] Consent for Treatmenton 06-2 Consent for Treatment [id number]#[id number]:127 [facility] Main OR Intraoperative Recor don 01-19-2022 Main OR Intraoperative Record IntraOp Document Type FTURO Summary Primary Physician: Maritza SCOTT MD Finalized Date/Time: 01/19/22 12:12:25 Pt. Name: PAWAN BUSTILLO/Sex: 1955 Male Med Rec #: [id number] Physician: Maritza SCOTT MD Financial #: [id number] Pt. Type: O Room/Bed: / Admit/Disch: 01/19/22 09:49:48 - Institution: Case Times FTURO Entry 1 Patient Times In Room 01/19/22 11:58:00 Out Room 01/19/22 12:12:00 Procedure Times Start 01/19/22 12:01:00 Stop 01/19/22 12:08:00 Anesthesia Times Last Modified By: Yas Ramos RN 01/19/22 12:12:21 Case Attendance FTURO Entry 1 Entry 2 Entry 3 Case Attendee Maritza SCOTT MD, CST, Yas Rios RN Role Performed Surgeon - Primary Scrub - Primary General Car Yard Supervisor - Primary Time In 01/19/22 11:58:00 01/19/22 [...] Complete 01/19/22 12:08:00 Last Modified By: Yas Rmaos RN 01/19/22 12:08:44 Case Comments Finalized By: Yas Ramos RN Document Signatures Signed By: Yas Ramos RN 01/19/22 12:12 Normal [facility] Main OR Preoperative Recordo n 01-19-2022 Main OR Preoperative Record Holding Area Document Type FTURO Summary Primary Physician: Maritza SCOTT MD Finalized Date/Time: 01/19/22 11:54:46 Pt. Name: PAWAN BUSTILLO/Sex: 1955 Male Med Rec #: [id number] Physician: Maritza SCOTT MD Financial #: [id number] Pt. Type: O Room/Bed: / Admit/Disch: 01/19/22 [...] 11:51 Yas Ramos RN 01/19/22 11:54 Normal [facility] Operative Reporton 2 Operative Report Patient: FARIDEH BUSTILLO Age: 66 years Sex: Male : [...] with a bladder scan PVR check. Normal [facility] Comment on above: Result Comment: Elec tronically Signed By: Maritza SCOTT MD\.br\Date and Time Signed: 01/19/22 12:11 EDT Progress Note-Physicianon Progress Note-Physician Patient: PAWAN BUSTILLO Age: 66 years Sex: Male : 1955 Associated Diagnoses: None Author: TSERING BARRY, Maritza Rob X this gentleman has significant urinary frequency [...] list: All Problems Arthritis / SNOMED CT 1609931 / Confirmed COPD (chronic obstructive pulmonary disease) / SNOMED CT 72979781 / Confirmed Emphysema of lung / SNOMED CT 244503585 / Confirmed Glaucoma / SNOMED CT 46265257 / Confirmed Heart attack / SNOMED CT 97142523 / Confirmed High cholesterol / SNOMED CT 77917490 / Confirmed Smoker / SNOMED CT 300955502 / Confirmed Added secondary to documentation in Social History. Incomplete bladder emptying / SNOMED CT 257561686 / Confirmed BPH with urinary obstruction / SNOMED CT 6495344625 / Confirmed Poor urinary stream / SNOMED CT 597556454 / Confirmed Feeling of incomplete bladder emptying / SNOMED CT 688479476 / Confirmed Urgency of urination / SNOMED CT 396351927 / Confirmed Urinary frequency / SNOMED CT 548368106 / Confirmed Prostatitis / SNOMED CT 23404548 / Confirmed Histories Past Medical History: No active or resolved past medical history items have been selected or recorded. Family History: Hypertension Father Heart disease Father Arthritis Father Mother Diabetes clinic Father High cholesterol Father Procedure history: Hernia ([id number]). Social History Social & Psychosocial Habits Tobacco [...] clean intermittent cath once a day. Normal [facility] Comment on above: Result Comment: Elec tronically Signed By: TSERING BARRY, Maritza Balderas\.br\Date and Time Signed: 01/19/22 12:16 EDT Ambulatory Visit Summaryon 0 12-21-2021 Ambulatory Visit Summary PAWAN BUSTILLO :1955 Visit Date:12/21/2021 Ambulatory Visit Instructions Your Diagnosis BPH with urinary obstruction Urinary frequency Prostatitis Tests Performed Urnls Dip Stick Auto w/o Microscopy POC 32765 Your Care Team Attending Physician - Maritza [...] When: Where: [facility] [address], [place] [address]- Medications What How Much When Instructions New doxycycline (doxycycline hyclate 100 mg Tab) 1 Tablets By Mouth 2 times a day Duration: 3 Weeks Pickup at [facility]/pharmacy #[id number] Unchanged tamsulosin (Flomax 0.4 mg Cap) 1 [...] physician if questions or concerns Pharmacy Information [facility]/pharmacy #[id number]: [address], [place] [phone] Test Results Urnls Dip Stick Auto w/o Microscopy POC 53320 (12/21/2021) Bilirubin Urine Dipstick - Negative Blood Urine Dipstick - Negative Glucose Urine Dipstick - Negative Ketones Urine Dipstick - Negative Leukocytes Urine Dipstick - Trace Nitrite Urine Dipstick - Negative Protein Urine Dipstick - Negative Specific [place] Urine Dipstick - 1.010 Urine Appearance Urine [...] away f (more content not included)... Normal [facility] Patient Educationon 12-22-19 Patient Education Urology Benign [...] Follow these instructions at home: ? Take mssx-mdx-dlrqrbd and prescription medicines only as told by [...] You d (more content not included)... Normal [facility] Urology Office/Clinic Noteon 12-21-2021 Urology Office/Clinic [...] 100mg bid for 3 weeks, sent to [facility] in [place]. Will schedule and Cysto and urodynamics. The [...] [facility] [address], [place] [address]- Additional Instructions: schedule Cysto. Patient Education Benign [...] Mother and (more content not included)... Normal [facility] Comment on above: Result Comment: Elec tronically [...] by: MUNIR GARCIA Date: 2021-12-14 11:09 Normal [facility] Cardiovascular Lab Reporton 06-06-2019 Cardiovascular Lab Report [facility] Patient Name: Pawan Bustillo [facility] MR #: [id number] Physician: Chavo Swanson, Department of M.D. Medicine Service Date: 06/05/2019 Division of Birthdate: 1955 Cardiology Room #: [facility] Cardiovascular Services [place] [address] Cardiovascular Laboratory Report IMPRESSIONS: 1. Patent stent in the mid left anterior descending coronary artery. 2. Cjfq-yv-xsnrrhnf disease of the proximal left anterior descending [...] Follow up with Dr. Leroy or Dr. Swanson in the next 2-3 months. 5. Follow up with his family physician as scheduled. PROCEDURES: Limited femoral angiography: Bilateral selective coronary angiography, placement of a 6-Eritrean MynxGrip closure device. METHODS: After risks, benefits, and alternatives were explained, written informed consent was obtained. The patient was prepped and draped in usual sterile fashion over the right groin. Using 1% lidocaine solution, local infiltration anesthesia was achieved. Using a modified Seldinger technique, micropuncture kit, access of the right common femoral artery was obtained. A 6-Erit[place]an 11 cm sheath was inserted without difficulty. Baseline femoral angiography was performed. Bilateral selective coronary angiography was performed using JL4 and JR4 catheters. After reviewing the images, it was elected to conclude the procedure. A 6-Erit[place]an MynxGrip closure device was inserted however deployment [...] abnormal stress test. Electronically Signed by: Chavo Swanson M.D. 06/09/2019 11:50 A Chavo Swanson M.D. Date Dict: 06/05/2019/01:10 P/Chavo Swanson M.D. Date Trans: 06/06/2019 03:46 A/natalee [id number] cc: Sancho Leroy M.D. [address] [place] [address] [facility] Vital Signs Date Time Vital Sign Value Performing Clinician Facility 09-04-2024 13:29-0500 Body temperature 98.1 [degF] Keaton Rico MD Work Phone: [facility] 09-04-2024 13:29-0500 Diastolic blood pressure 70 mm[Hg] Keaton Rico MD Work Phone: [facility] 09-04-2024 13:29-0500 Heart rate 90 /min Keaton Rico MD Work Phone: [facility] 09-04-2024 13:29-0500 SaO2% (BldA) [Mass fraction] 90 % Keaton Rico MD Work Phone: [facility] 09-04-2024 13:29-0500 Systolic blood pressure 130 mm[Hg] Keaton Rico MD Work Phone: [facility] 07-30-2024 14:38-0500 Body height 180.34 cm Keaton Rico MD Work Phone: [facility] 07-30-2024 14:38-0500 Body mass index (BMI) [Ratio] 28.1 kg/m2 Keaton Rico MD Work Phone: [facility] 07-30-2024 14:38-0500 Body temperature 100.2 [degF] Keaton Rico MD Work Phone: [facility] 07-30-2024 14:38-0500 Body weight 91.62 kg Keaton Rico MD Work Phone: [facility] 07-30-2024 14:38-0500 Diastolic blood pressure 70 mm[Hg] Keaton Rico MD Work Phone: [facility] 07-30-2024 14:38-0500 Heart rate 102 /min Keaton Rico MD Work Phone: [facility] 07-30-2024 14:38-0500 SaO2% (BldA) [Mass fraction] 89 % Keaton Rico MD Work Phone: [facility] 07-30-2024 14:38-0500 Systolic blood pressure 105 mm[Hg] Keaton Rico MD Work Phone: [facility] 01-17-2024 12:51-0400 Body height 180.34 cm MD Keaton Rico Work Phone: [facility] 01-17-2024 12:51-0400 Body mass index (BMI) [Ratio] 25.8 kg/m2 MD Keaton Rico Work Phone: [facility] 01-17-2024 12:51-0400 Body temperature 98.8 [degF] MD Keaton Rico Work Phone: [facility] 01-17-2024 12:51-0400 Body weight 84 kg MD Keaton Rico Work Phone: [facility] 01-17-2024 12:51-0400 Diastolic blood pressure 62 mm[Hg] MD Keaton Rico Work Phone: [facility] 01-17-2024 12:51-0400 Heart rate 66 /min MD Keaton Rico Work Phone: [facility] 01-17-2024 12:51-0400 Respiratory rate 16 /min MD Keaton Rico Work Phone: [facility] 01-17-2024 12:51-0400 SaO2% (BldA) [Mass fraction] 98 % MD Keaton Rico Work Phone: [facility] 01-17-2024 12:51-0400 Systolic blood pressure 110 mm[Hg] MD Keaton Rico Work Phone: [facility] 09-17-2023 08:00-0500 Body temperature 99.9 [degF] MD Keaton Rico Work Phone: [facility] 09-17-2023 08:00-0500 Diastolic blood pressure 76 mm[Hg] MD Keaton Rico Work Phone: [facility] 09-17-2023 08:00-0500 Heart rate 94 /min MD Keaton Rico Work Phone: [facility] [place] 09-17-2023 08:00-0500 Respiratory rate 20 /min MD Keaton Rico Work Phone: [facility] [place] 09-17-2023 08:00-0500 SaO2% (BldA) [Mass fraction] 88 % MD Keaton Rico Work Phone: [facility] [place] 09-17-2023 08:00-0500 Systolic blood pressure 145 mm[Hg] MD Keaton Rico Work Phone: [facility] [place] 09-17-2023 07:26-0500 Inhaled oxygen flow rate 1 L/min MD Keaton Rico Work Phone: [facility] [place] 09-17-2023 06:00-0500 Body weight 84.5 kg MD Keaton Rico Work Phone: [facility] [place] 09-15-2023 15:35-0500 Body height 180.34 cm MD Keaton Rico Work Phone: [facility] [place] 09-12-2023 12:00-0500 Body height 177.8 cm Tom Oteroehrer Other [facility] [employer] Other 09-12-2023 12:00-0500 Body mass index (BMI) [Ratio] 27.12 kg/m2 Tom Buehrer Other [employer] Other 09-12-2023 12:00-0500 Body temperature 98.3 [degF] Tom Buehrer Other [employer] Other 09-12-2023 12:00-0500 Body weight 85.73 kg Tom Buehrer Other [employer] Other 09-12-2023 12:00-0500 Diastolic blood pressure 58 mm[Hg] Tom Buehrer Other [employer] Other 09-12-2023 12:00-0500 SaO2% (BldA) [Mass fraction] 92 % Tom Buehrer Other [employer] Other 09-12-2023 12:00-0500 Systolic blood pressure 11 mm[Hg] Tom Buehrer Other [employer] Other 05-18-2023 18:15-0400 Diastolic blood pressure 62 mm[Hg] MD Keaton Rico Work Phone: [facility] [place] 05-18-2023 18:15-0400 Heart rate 70 /min MD Keaton Rico Work Phone: [facility] [place] 05-18-2023 18:15-0400 Respiratory rate 16 /min MD Keaton Rico Work Phone: [facility] [place] 05-18-2023 18:15-0400 SaO2% (BldA) [Mass fraction] 91 % MD Keaton Rico Work Phone: [facility] [place] 05-18-2023 18:15-0400 Systolic blood pressure 110 mm[Hg] MD Keaton Rico Work Phone: [facility] [place] 05-18-2023 12:27-0400 Inhaled oxygen flow rate 3 L/min MD Keaton Rico Work Phone: [facility] [place] 05-18-2023 08:04-0400 Body height 182.88 cm MD Keaton Rico Work Phone: [facility] [place] 05-18-2023 08:04-0400 Body weight 86.18 kg MD Keaton Rico Work Phone: [facility] [place] 05-16-2023 10:15-0400 Body height 177.8 cm Tom Schroeder Other [employer] Other 05-16-2023 10:15-0400 Body mass index (BMI) [Ratio] 27.12 kg/m2 Tom Schroeder Other [employer] Other 05-16-2023 10:15-0400 Body temperature 97.8 [degF] Tom Schroeder Other [employer] Other 05-16-2023 10:15-0400 Body weight 85.73 kg Tom Schroeder Other [employer] Other 05-16-2023 10:15-0400 Diastolic blood pressure 68 mm[Hg] Tom Schroeder Other [employer] Other 05-16-2023 10:15-0400 SaO2% (BldA) [Mass fraction] 96 % Tom Schroeder Other [employer] Other 05-16-2023 10:15-0400 Systolic blood pressure 118 mm[Hg] Tom Schroeder Other [employer] Other 04-26-2023 11:45-0400 Body height 177.8 cm Madie Lopezsergo Other [employer] Other 04-26-2023 11:45-0400 Body mass index (BMI) [Ratio] 27.12 kg/m2 Madie Tangela Other [employer] Other 04-26-2023 11:45-0400 Body temperature 97 [degF] Madie Lopezsergo Other [employer] Other 04-26-2023 11:45-0400 Body weight 85.73 kg Madie Lopezsergo Other [employer] Other 04-26-2023 11:45-0400 Diastolic blood pressure 60 mm[Hg] Madie Honeycutt Other [employer] Other 04-26-2023 11:45-0400 SaO2% (BldA) [Mass fraction] 97 % Madie Tangela Other [employer] Other 04-26-2023 11:45-0400 Systolic blood pressure 120 mm[Hg] Madie Honeycutt Other [employer] Other 12-23-2022 15:30-0400 Body height 177.8 cm Keaton Rico Other [employer] Other 12-23-2022 15:30-0400 Body mass index (BMI) [Ratio] 27.12 kg/m2 Keaton Rico Other [employer] Other 12-23-2022 15:30-0400 Body temperature 100 [degF] Keaton Rico Other [employer] Other 12-23-2022 15:30-0400 Body weight 85.73 kg Keaton Rico Other [employer] Other 12-23-2022 15:30-0400 Diastolic blood pressure 82 mm[Hg] Keaton Rcio Other [employer] Other 12-23-2022 15:30-0400 SaO2% (BldA) [Mass fraction] 97 % Keaton Rico Other [employer] Other 12-23-2022 15:30-0400 Systolic blood pressure 152 mm[Hg] Keaton Rico Other [employer] Other 11-09-2022 11:15-0400 Body height 177.8 cm Keaton Rico Other [employer] Other 11-09-2022 11:15-0400 Body mass index (BMI) [Ratio] 26.54 kg/m2 Keaton Rico Other [employer] Other 11-09-2022 11:15-0400 Body weight 83.92 kg Keaton Rico Other [employer] Other 11-09-2022 11:15-0400 Diastolic blood pressure 76 mm[Hg] Keaton Rico Other [employer] Other 11-09-2022 11:15-0400 SaO2% (BldA) [Mass fraction] 97 % Keaton Rico Other [employer] Other 11-09-2022 11:15-0400 Systolic blood pressure 120 mm[Hg] Keaton Rico Other [employer] Other 04-19-2022 09:56-0400 Respiratory rate 16 /min Maritza SCOTT [facility] 05-11-2021 10:00-0400 Body height 180.34 cm Tom Schroeder Other [employer] Other 05-11-2021 10:00-0400 Body mass index (BMI) [Ratio] 25.8 kg/m2 Tom Schroeder Other [employer] Other 05-11-2021 10:00-0400 Body temperature 98.9 [degF] Tom Schrodeer Other [employer] Other 05-11-2021 10:00-0400 Body weight 83.92 kg Tom Schroeder Other [employer] Other 05-11-2021 10:00-0400 Diastolic blood pressure 72 mm[Hg] Tom Schroeder Other [employer] Other 05-11-2021 10:00-0400 SaO2% (BldA) [Mass fraction] 96 % Tom Schroeder Other [employer] Other 05-11-2021 10:00-0400 Systolic blood pressure 120 mm[Hg] Tom Schroeder Other [facility] [employer] Other Encounters Encounter Date Encounter Type Care Provider Facility Start: 03-11-2025 End: 03-11-2025 ambulatory LEONORA DAHL [facility] Start: 09-18-2024 End: 09-18-2024 ambulatory ARAVIND TYESHAGILA [facility] Start: 09-04-2024 End: 09-04-2024 Patient encounter procedure Keaton Rico MD Work Phone: [facility] Physician [facility] Work Phone: Start: 09-04-2024 End: 09-04-2024 ambulatory Keaton Rico MD Work Phone: [facility] Work Phone: Start: 07-30-2024 End: 07-30-2024 Patient encounter procedure Keaton Rico MD Work Phone: [facility] Physician [facility] Work Phone: Start: 05-15-2024 Patient encounter procedure Keaton Rico MD Work Phone: [facility] Start: 01-17-2024 End: 01-17-2024 ambulatory MD Keaton Rico Work Phone: [facility] Work Phone: Start: 01-17-2024 End: 01-17-2024 Patient encounter procedure MD Keaton Rico Work Phone: [facility] Physician [facility] Work Phone: Start: 10-20-2023 End: 10-20-2023 Patient encounter procedure MD Keaton Rico Work Phone: [facility] Physician [facility] Work Phone: Start: 09-17-2023 Non-patient / Non-visit MD Bridgette Rico Work Phone: [facility] Work Phone: Start: 09-14-2023 Non-patient / Non-visit MD Bridgette Rico Work Phone: [facility] Work Phone: Start: 09-14-2023 End: 09-17-2023 Evaluation and management of inpatient MD Keaton Rico Work Phone: [facility] Work Phone: Start: 09-12-2023 Office outpatient vi sit 25 minutes Tom Schroeder [facility] Start: 09-12-2023 End: 09-12-2023 Patient encounter procedure MD Keaton Rico Work Phone: [facility] Start: 09-12-2023 End: 09-12-2023 ambulatory MD Keaton Rico Work Phone: [employer] Other Start: 06-13-2023 End: 06-13-2023 ambulatory Keaton Rico Other [employer] Other Start: 06-13-2023 Telephone encounter Keaton Rico [facility] Start: 05-18-2023 End: 05-18-2023 Admission to same day surgery center MD Keaton Rico Work Phone: [facility]-Interventional Radiology Work Phone: Start: 05-18-2023 End: 05-18-2023 ambulatory MD Keaton Rico Work Phone: [facility] Work Phone: Start: 05-16-2023 End: 05-16-2023 ambulatory Tom Schroeder Other [employer] Other Start: 05-16-2023 Office outpatient vi sit 25 minutes Tom Schroeder [facility] Start: 05-02-2023 End: 05-02-2023 Patient encounter procedure MD Keaton Rico Work Phone: [facility]-CT Scan [facility] Work Phone: Start: 04-26-2023 End: 04-26-2023 ambulatory Madie Honeycutt Other [employer] Other Start: 04-26-2023 Patient encounter procedure Madie Lopezbethioana [facility] Start: 02-14-2023 End: 02-14-2023 ambulatory Keaton Rico Other [employer] Other Start: 02-14-2023 Telephone encounter Keaton Rico [facility] Start: 12-23-2022 End: 12-23-2022 ambulatory Keaton Rioc Other [employer] Other Start: 12-23-2022 Office outpatient vi sit 15 minutes Keaton Rico [facility] Start: 11-12-2022 End: 11-12-2022 ambulatory Keaton Rico Other [employer] Other Start: 11-12-2022 Telephone encounter Keaton Rico [facility] Start: 11-09-2022 End: 11-09-2022 ambulatory Keaton Rico Other [employer] Other Start: 11-09-2022 Office outpatient vi sit 15 minutes Keaton Rico [facility] Start: 11-05-2022 Encounter for other preprocedural examination ARAVIND JOSÉ [facility] Start: 11-01-2022 End: 11-02-[address] KEATON RICO Facility:[facility] Start: 11-01-2022 End: 11-02-2022 Encounter for other preprocedural examination DR KEATON RICO Facility:[facility] Start: 10-29-2022 End: 10-29-2022 ambulatory Keaton Rico Other [employer] Other Start: 10-29-2022 Telephone encounter Keaton Rico [facility] Start: 10-18-2022 End: 10-19-2022 ambulatory Maritza SCOTT Facility:[facility] Start: 10-18-2022 End: 10-18-2022 Patient encounter procedure Maritza SCOTT [facility] Start: 09-28-2022 End: 09-29-[address] DOCTOR MOORE Facility:[facility] Start: 06-16-2022 End: 06-17-[address] KEATON RICO Facility: Start: 04-19-2022 End: 04-20-2022 ambulatory Maritza SCOTT Facility:[facility] Start: 04-19-2022 End: 04-19-2022 Patient encounter procedure Maritza Balderas [facility] Start: 01-19-2022 End: 01-20-2022 ambulatory Maritza SCOTT Facility[facility] Start: 01-19-2022 End: 01-19-2022 Patient encounter procedure Maritza Balderas [facility] Start: 12-21-2021 End: 12-22-2021 ambulatory Maritza SCOTT Facility:[facility] Start: 12-14-2021 End: 12-15-[address] KEATON RICO Facility: Start: 05-14-2021 Telephone encounter Tom Elda [facility] Start: 05-11-2021 [facility] visit new patient Tom Pierre [facility] Start: 06-05-2019 End: 06-06-2019 Patient encounter procedure EHAB Tasha SWANSON Facility:[facility] Procedures Date Procedure Procedure Detail Performing Clinician Start: 09-04-2024 Ankle brachial press ure index Keaton Rico MD Work Phone: Start: 01-17-2024 Ankle brachial press ure index MD Keaton Rico Work Phone: Start: 09-17-2023 Plain chest X-ray MD Ellis Rico Work Phone: Start: 09-16-2023 Angiography MD Keaton Rico Work Phone: Start: 09-15-2023 Angiography MD Keaton Rico Work Phone: Start: 09-15-2023 Angiography MD Keaton Rico Work Phone: Start: 09-14-2023 Antibody screen Tom Brandenrosalbarios Comment on above: Result Comment: PERF ORMED BY: [facility] [place] [address] PATHOLOGIST PIE TOPPER JOLIE MASON M.D. Start: 09-14-2023 IR Angiogram w/TLA/S tent Right Leg (Right) [...] Comment on above: Performed By: #### P [facility] #### [facility] [address] [place] [address] Dr. Kathy Chang Start: 01-19-2022 Cystoscopy Maritza CARNES Start: 01-19-2022 Urodynamic studies Darrick SCOTT Herniated structure (morphologic abnormality) Maritza SCOTT Plan of Treatment Date Care Activity Detail Author Start: 09-17-2023 Consultation [facility] Start: 09-16-2023 [facility] Start: 09-15-2023 Femoral endarterectomy OR Fem- Fem/Fem Endart/Patch Graft (Right) [facility] Start: 09-14-2023 Hospital admission [facility] Start: 05-18-2023 [facility] Ankle brachial press ure index [facility] Ankle brachial press ure index [facility] Patient Education [facility] Work Phone: Patient referral [facility] Work Phone: Immunizations Immunization Date Immunization Notes Care Provider Fa cility 06-09-2021 SARS-CoV-2 (COVID-19 ) mRNA BNT-162b2 vax Maritza SCOTT [facility] Comment on above: Result Comment: 2022: [id number] 12-01-2020 COVID-19 Jayleen Perkins (Pfizer) MD Keaton Rico Work Phone: [facility] 11-10-2020 COVID-19 Jayleen Perkins (Pfizer) MD Keaton Rico Work Phone: [facility] 11-07-2020 SARS-CoV-2 (COVID-19 ) Ad26 vaccine, recombinant Maritza SCOTT [facility] 10-28-2020 SARS-CoV-2 (COVID-19 ) mRNA BNT-162b2 vax Maritza SCOTT [facility] 10-10-2020 SARS-CoV-2 (COVID-19 ) Ad26 vaccine, recombinant Maritza SCOTT [facility] 10-06-2020 SARS-CoV-2 (COVID-19 ) mRNA BNT-162b2 vax Maritza SCOTT [facility] 09-25-1997 Hep A, unspecified formulation Maritza SCOTT [facility] 09-25-1997 hepatitis B vaccine, adult dosage Maritza SCOTT [facility] 02-27-1997 hepatitis B vaccine, adult dosage Maritza SCOTT [facility] 01-22-1997 Hep A, unspecified formulation Maritza CSOTT [facility] 01-22-1997 hepatitis B vaccine, adult dosage Maritza SCOTT [facility] 01-22-1997 Td(adult) unspecifie d formulation Maritza SCOTT [facility] Payers Date Payer Category Payer Unknown [id number] 2023 Medicare [id number] 2023 Self-pay [id number] 2021 Unknown [id number] 1959 Unknown [id number] 1955 Unknown [id number] 2.16.8 [id number] 1955 Unknown [id number] 2.16.8 [id number] 1955 Unknown [id number] 2.16.8 40.1.770162.3.579.2.727 1955 Unknown [id number] 2.16.8 40.1.607103.3.579.2.727 1955 Unknown [id number] 2.16.8 40.1.852901.3.579.2.727 1955 Unknown [id number] 2.16.84 0.1.309595.3.579.2.593 1955 Unknown [id number] 2.16.84 0.1.723020.3.579.2.593 1955 Unknown [id number] 2.16.84 0.1.973029.3.579.2.593 1955 Unknown [id number] 2.16.84 0.1.823680.3.579.2.593 1955 Unknown [id number] 2.16.84 0.1.774119.3.579.2.593 Unknown [id number] 2.16.8 40.1.085593.3.579.2.531 Unknown [id number] 2.16.8 40.1.720308.3.579.2.531 Unknown [id number] 2.16.8 40.1.601447.3.579.2.531 Unknown [id number] 2.16.8 40.1.281325.3.579.2.531 Social History Date Type Detail Facility Start: 12-21-2021 End: 04-19-2022 Tobacco smoking status Heavy tobacco smoker (finding) [facility] [employer] Other Start: 09-14-2068 Sex Assigned At Male N [facility] [employer] Other Start: 05-18-2023 End: 09-17-2023 Tobacco smoking status NHIS Smoker (finding) [facility] Start: 1955 Sex Assigned At Male F [facility] Start: 10-11-2023 End: 10-11-2023 Tobacco smoking status NHIS Ex-smoker (finding) [facility] Start: 09-05-2024 Sex Patient sex un known (finding) [facility] Medical Equipment Procedure Code Equipment Code Equipment Origin al Text Equipment Identifier Dates Angiogram, lower extremity, left Multiple peripheral artery stent, bare-metal [id number] FDA Start: 05-18-2023 Angiogram, lower extremity, left Multiple peripheral artery stent, bare-metal [id number] FDA Start: 05-18-2023 Angiogram, for thrombolysis follow-up Multiple peripheral artery stent, bare-metal [id number] FDA Start: 09-15-2023 Angiogram, for thrombolysis follow-up Multiple peripheral artery stent, bare-metal [id number] FDA Start: 09-15-2023 Multiple peripheral artery stent, bare-metal [id number] FDA Start: 05-21-2021 Multiple peripheral artery stent, bare-metal [id number] FDA Start: 05-21-2021 Multiple peripheral artery stent, bare-metal ()[id number] FDA Start: 05-21-2021 Goals Date Patient Goal Desired Activity /State Functional Status Date Assessment Result Facility 09-17-2023 Functional status Patient at Baseline [facility] Work Phone: 04-19-2022 Functional Status N/A [facility] 01-15-2022 Functional Status N/A [facility] Mental Status Date Assessment Result Facility 09-17-2023 Cognitive function Cognitive Sta tus Patient at Baseline [facility] Work Phone: Clinical Notes 05-11-2021 to 03-11-2025 Note Date & Type Note Facility 03-11-2025 Note DC Cardiology - [facility] Subjective Pawan Bustillo is a 69 y.o. year old male patient being seen for a 6 month follow up. Patient states he feels not to bad. 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 Smoking Status Former BSA 2.14 m??? Physical Exam Constitutional: Appearance: He is well-developed. [...] THE MORNING, Disp: 90 tablet, Rfl: 3 omqljryjvsb-aoycvbgub-tpvsdyng (Trelegy Ellipta) 100-62.5-25 mcg blister with device, Inhale 1 puff in the morning., Disp: , Rfl: lisinopril 10 mg tablet, Take 10 mg by mouth in the morning., Disp: , Rfl: metoprolol succinate XL (Toprol-XL) 25 mg 24 hr tablet, Take 1 tablet (25 mg) by mouth (more content not included)... [facility] 09-18-2024 Note Cardiology Clinic No yimi Pawan Bustillo is a 68 y.o. year old male patient with hypertension, hyperlipidemia, tobacco abuse, PAD s/p bilateral common and bilateral external iliac stents by Dr. Schroeder at [facility] in 05/2021, and CAD status post PCI ro mLAD in 2015. He presents today for follow up. Patient here for 6 mo follow up CAD, PAD, PAC's, and hypertension. He had routine labs with lipid panel in May 2024. It's now been 1 year since he quit smoking. Takes Xarelto for PAD.Says his SOB remains the same as last apt. He sees Dr. Cruz. He denies any additional cardiac complaints or concerns. Patient Active Problem List Diagnosis Urinary urgency Tobacco dependence syndrome Chronic obstructive pulmonary disease (CMS/HCC) Prostatitis Poor urinary stream Myocardial infarction (CMS/HCC) Increased frequency of urination Incomplete emptying of bladder Hypertensive disorder Hyperlipidemia Glaucoma Fatigue Dyspnea on exertion Current smoker Coronary arteriosclerosis Cardiovascular stress test abnormal Benign prostatic hyperplasia with urinary obstruction Hsswt-3-ycmbucevzzv deficiency (CMS/HCC) Arthritis Claudication (CMS/HCC) Feeling of incomplete bladder emptying Gastroesophageal reflux disease Internal derangement of left shoulder alf current use of inhaled steroid Multiple pulmonary nodules Former smoker Peripheral arterial occlusive disease (CMS/HCC) Postoperative acute respiratory failure (CMS/HCC) Family History Problem Relation Name Age of [...] external iliac stents by Dr. Schroeder at [facility] in 05/2021, and CAD status post PCI ro mLAD in 2015. He is here for cardiac risk stratification for left shoulder arthroscopy. He is on chronically on DAPT (Aspirin/Effient) therapy since PCI in 2016. Reports worsening dyspnea on exertion with variable functional capacity. He is able to do yard work with frequent breaks. Review of Systems Cardiovascular: Positive for dyspnea on exertion. All other systems reviewed and are negative. [...] the morning., Disp: 90 tablet, Rfl: 3 jawyemroagb-veypdlqkp-jsleppzs (Trelegy Ellipta) 100-62.5-25 mcg blister with device, Inhale 1 puff in the morning., Disp: , Rfl: lisinopril 10 mg tablet, Take 10 mg by mouth in the morning., Disp: , Rfl: metoprolol succinate XL (Toprol-XL) 25 mg 24 hr tablet, Take 1 tablet (25 mg) by mouth once daily as directed. 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 [facility] 09-04-2024 Radiology Diagnostic study note [facility] [address] [place] [address] Ultrasound Report Signed Patient: Pawan Bustillo MR#: [id number] : 1955 Acct:[id number] Age/Sex: 68 / M ADM Date: 5 Loc: [facility] Room: Type: [facility] Attending Dr: Tom Schroeder MD Ordering Provider: Tom Schroeder MD Date of Service: 09/04/24 US/US ankle/arm indices: I70.213 - Atherosclerosis ofnative arteries of extremiti... Copies to: Tom Schroeder MD~ LOWER EXTREMITY SEGMENTAL ARTERIAL DOPSCAN (PVR) INDICATION: Follow-up known peripheral vascular occlusive disease after endovascular reconstruction PROCEDURE: Right arm blood pressure is 141 , left is 137 . Pressures at the right ankle are 141 using the posterior tibial artery, and 133 using the dorsalis pedis artery with ankle-brachial index of 1.00 0.94 . Pressures at the left ankle are 145 using the posterior tibial artery, and 132 with ankle-brachial index of 1.03 0.94 . Wave forms by plethysmography are normal. US/US ankle/arm indices IMPRESSION: NO HEMODYNAMICALLY SIGNIFICANT PERIPHERAL VASCULAR OCCLUSIVE DISEASE AT REST IN EITHER LOWER EXTREMITY. Impression dictated by: Tom Schroeder M.D.09/04/2024 1:31 PM Dictation Location: [place] [address] Tech: Irmapaty Jimenez Transcribed By: NOÉ 09/04/241330 Dictated By: Tom Schroeder MD 09/04/241330 Signed By: 09/04/241330 [facility] Work Phone: 07-30-2024 Evaluation note Diagnosis Onset Date Resolution COPD with acute bronchitis acute July 30 2:35pm Former smoker acute September 12:56pm Peripheral arterial occlusive disease acute September 04, 2024 12:56pm [facility] Work Phone: 1(523) 414-298802-17-2024 Consult note Author Juventino Kruse [facility] September 17, 2023 9:58am Note Date/Time September 17, 2023 9:59am [facility] [address] [place] [address] Pulmonology Consult Note Signed Patient: Pawan Bustillo MR#: [id number] : 1955 Acct:[id number] Age/Sex: 67 / M Adm Date: 4 Loc: Room: [address] [place] [address] Type: ADM IN Attending Dr: Tom Schroeder [...] negative unless noted below or in HPI [facility] Medical History (Updated 09/17/23 @ 09:57 by Juventino Kruse MD) BPH (benign prostatic hyperplasia) Problem List clean-up per request of Phys. EHR [facility] COPD (chronic obstructive pulmonary disease) Problem List clean-up per request of Phys. EHR [facility] Myocardial infarct Problem List clean-up per request of Phys. [facility] Surgical History H/O repair of rotator cuff Problem List clean-up per request of Phys. EHR [facility] History of ankle surgery RIGHT Problem List clean-up per request of Phys. EHR [facility] H/O hernia repair Problem List clean-up per request of Phys. EHR [facility] H/O heart artery stent Problem List clean-up per request of Phys. [facility] Family History (Updated 06/13/23 @ 10:05 by [...] signed by Juventino Kruse MD> 09/17/23 0958 [facility] Work Phone: [phone]) 257-332602-16-2024 [facility] Progress note Author Tom Schroeder [facility] September 15, 2023 3:56pm Note Date/Time September 15, 2023 3:56pm [facility] [address] [place] [address] Vascular Surgery Progress Note Signed Patient: Pawan Bustillo MR#: [id number] : 1955 Acct:[id number] Age/Sex: 67 / M Adm Date: 4 Loc: Room: [address] [place] [address] Type: ADM IN Attending Dr: Tom Schroeder [...] 65.7 64.5 Lymph % (Auto) 22.1 22.9 [place] % (Auto) 7.3 8.6 Eos % (Auto) 4.1 3.7 Baso % (Auto) 0.8 0.3 Nucleat RBC Rel Count 0.2 0.1 Neut # (Auto) 4.0 3.9 Lymph # (Auto) 1.3 1.4 Winona # (Auto) 0.4 0.5 Eos # (Auto) [...] 79.7 85.7 Lymph % (Auto) 12.0 7.7 Win[place] % (Auto) 7.2 5.8 Eos % (Auto) 0.9 0.4 Baso % (Auto) 0.2 0.4 Nucleat RBC Rel Count 0.1 0.1 Neut # (Auto) 6.0 7.3 Lymph # (Auto) 0.9 L 0.7 L Winona # (Auto) 0.5 0.5 Eos # (Auto) [...] <Electronically signed by MD Tom Schroeder> 09/15/23 1556 [facility] Work Phone: 1(396) 806-912102-12-2024 Evaluation note* Encounter Date Diagnosis Assessment Notes [...] aware that he needs to discontinue smoking. [employer] Other 10-16-2023 Evaluation note* Encounter Date Diagnosis Assessment Notes [...] in addition to his current medical regimen. [employer] Other 09-26-2023 Evaluation note* Encounter Date Diagnosis [...] in peripheral vascular disease (ICD-10 - I73.9) [employer] Other 05-25-2023 Evaluation note* Encounter Date Diagnosis [...] may not be necessary at this time. [employer] Other 04-11-2023 Evaluation note* Encounter Date Diagnosis Assessment Notes Treatment Notes Treatment Clinical Notes Oct, Bronchitis (ICD-10 - J40) Bronchitis: Care Instructions material was printed Pt is acutely sick with acute complicated bronchitis Recommend: Antibiotics: Azithromycin 50 mg po daily for 5 days Bronchodilator: Albuterol with prednisone taper expectorent: Mucinex\ Pawan agreed I could send note to [facility] Cardiology. Will check on his improvement on 11/12. [employer] Other 09-19-2022 Hospital Discharge instructions Patient Education [...] prostate. Follow these instructions at home: Take vdtl-xnh-whgelsk and prescription medicines only as told by [...] 07/15/2001 Document Revised: 09/30/2018 Document Reviewed: 04/07/2017 [employer] Patient Education 2020 [employer]. Follow Up Care 01/19/2022 12:19:40 With:TSERING BARRY, Maritza Balderas, XENIA Address: [facility] [address] , [place] [address]- [phone] When:10/17/2022 Comments:PVR [facility] 06-22-2022 Note [id number]:127[facility] 01-19-2022 Hospital Discharge instructions Patient Education 01/19/2022 [...] With:Maritza SCOTT Address: [facility] [address], [place] [address]- Business (1) When:04/21/2022 12:18:02 Comments:With a bladder scan [facility]06-21-2022 NoteCustom Cystoscopy ? Voiding after the [...] if you have a fever over 100 degrees.[facility] 01-19-2022 Evaluation + Plan noteExtracted from: Title:Urology [...] Date:04/19/2022 09:30:00 AM Scheduled Provider:Maritza SCOTT MD [facility] Appointment Type:URO Office Visit [facility]10-11-2021 Evaluation note* Encounter Date Diagnosis Assessment [...] completed May, Current smoker (ICD-10 - F17.200) [employer] Other Evaluation + Plan note Future Appointments Appointment Date:10/18/2022 10:45:00 AM Scheduled Provider:Maritza SCOTT MD Location:[facility] Appointment Type:URO Office Visit Diagnostic Tests Pending * PSA Total 04/19/22 [facility] evaluation noteNo InformationNort Ganipara Other Evaluation noteNo assessment information available [facility] Work Phone: Evaluation note* Diagnosis Onset Date Resolution Status Peripheral arterial occlusive disease acute Postoperative acute respiratory failure acute [facility] Work Phone: Evaluation note* Diagnosis Onset Date Resolution Status Bronchitis acute COPD exacerbation acute Peripheral arterial occlusive disease acute [facility] Work Phone: Hisssxg general Narrative - Reported* Type Description Date Medical History PVOD w/claudication Medical History hypercholesterolemia Medical History CAD Medical History NH Surgical History hernia repair Surgical History heart stent Surgical History ankle surgery [employer] Other Hisprjs general Narrative - Reported* Type Description Date Medical History PVOD w/claudication Medical History hypercholesterolemia Medical History CAD Medical History NH Surgical History hernia repair Surgical History heart stent Surgical History ankle surgery Hospitalization History SEE SURGICAL HX [employer] Other Hisrkqf general Narrative - Reported* Type Description Date Medical History PVOD w/claudication Medical History hypercholesterolemia Medical History CAD Medical History NH Surgical History hernia repair Surgical History heart stent Surgical History ankle surgery Surgical History Left shoulder surgery 11/2022 Hospitalization History SEE SURGICAL HX [employer] Other History general Narrative - Reported* Type Description Date Medical History PVOD w/claudication Medical History hypercholesterolemia Medical History CAD Medical History NH Medical History [ ] Surgical History hernia repair Surgical History heart stent Surgical History ankle surgery Surgical History Left shoulder surgery 11/2022 Surgical History [ ] Hospitalization History SEE SURGICAL HX [employer] Other History general Narrative - Reported* Type Description Date Medical History PVOD w/claudication Medical History hypercholesterolemia Medical History CAD Medical History NH Medical History PAD Medical History [ ] Surgical History hernia repair Surgical History heart stent Surgical History ankle surgery Surgical History Left shoulder surgery 11/2022 Surgical History LEG STENTS 05/2023 Hospitalization History SEE SURGICAL HX [employer] Other Hospital course Narrative No data available for this section [facility] No data available for this section [facility] Gen9 progress note No data available for this section [facility] Summary Purpose Family History No Family History Records Found Relationship Condition Age at Onset Recorded Date/T mckenzie brother Unknown Heart disease Unknown father Heart disease Unknown Unknown Not Specified Unknown sister Heart disease Unknown Relationship Condition Age at Onset Recorded Date/T mckenzie brother Unknown Heart disease Unknown father Heart disease Unknown Unknown mother Unknown sister Heart disease Unknown Advance Directives [...] Bronchitis COPD exacerbation Peripheral arterial occlusive disease Chief Complaint Admit Date cough, congestion July 30, 2024 2:35pm I70.213 September 04, 2024 1 2:53pm 6 MONTH F/U; [facility]IV[facility]'S 1P September 04, 2024 12:56pm Reason for Visit Admit Date COPD with acute bronchitis July 2:35pm Former smoker September 04, 2024 1 2:56pm Peripheral arterial occlusive disease Fe bruary 2024 12:56pm Additional Source Comments (unrecognized sect ion and content) No Status Records FoundNo Status Records FoundNo Status Records FoundNo Status Records FoundNo Status Records Found INFORMATION SOURCE (unrecogn ized section and content) DATE CREATED AUTHOR 06/09/[address] [facility] DATE CREATED AUTHOR AUTHOR'S ORGANIZ ATION 10/19/2022 [facility] DATE CREATED AUTHOR AUTHOR'S ORGANIZ ATION 11/06/2022 [facility] [place] [facility] DATE CREATED AUTHOR AUTHOR'S ORGANIZ ATION 09/06/2024 [facility] DATE CREATED AUTHOR AUTHOR'S ORGANIZ ATION 03/12/2025 [facility] Care Team (unrecognized sect ion and content) Team Status: Active Member Role Status Dates Keaton Rico MD Primary Care Provider Active Team Status: Inactive Member Role Status Dates Keaton Rico MD Primary Care Provider Active Madie Honeycutt NP-C Attending Provider Active Team Status: Inactive Member [...] Juventino Kruse MD Other Provider Active Start: Ora shaw 2023 End: September 17, 2023 Team Status: [...] Member Role Status Dates Kailyn Muro APRN COSMETIC ACCOUNT COORDINATOR-C Attending Provider Act esmer Start: October 20, [...] January 17, 2024 End: January 17, 2024 Team Status: Inactive Member Role Status Dates Keaton Rico MD Primary Care Provide r, Attending Provider Active Start: July 30, 2024 End: July 30, 2024 Team Status: Inactive Member Role Status Dates Keaton Rico MD Primary Care Provider Active Start: September 04, 2024 End: September 04, 2024 Tom Schroeder MD Attending Provider Active S tart: September 04, 2024 End: September 04, 2024 REASON FOR VISIT (unrecogniz ed section and content) 3 MONTH FOLLOW UP; [facility]IVA'S BOT H LEGS 11:30A, Right leg painGO OVER CT RESULTS FROM 05/02 AT [facility], Follow-up CT angiogramPain in legs, previous angiogramrefillCOUGHING, [...] BE BASED ON THE PRIMARY CLINICAL RECORDS. [employer] provides no warranty or guarantee of the accuracy or completeness of information in this document.
== END 2025-03-21 13:57 | disposition home or self-care (01) ==
LOC: CARD 14:05
PROVIDERS: PCP Family Medicine; Visit Provider Internal Medicine Interventional Cardiology
DX: I25.10 Atherosclerotic heart disease of native coronary artery without angina pectoris (principal); R06.02 Shortness of breath
CPT/HCPCS: 93306

== ENCOUNTER 2025-05-21 13:52 | Outpatient (OUT) | payer MEDICARE, SELFPAY ==
--- OUTSIDE RECORDS SUMMARY | 2025-03-13 06:00 | XMS_ITS ---
Author Organization The [facility] in [place] Address [address] [place] [address] Care Team Providers Care Director Of Software Engineering Name Role Phone Nakia Rascon Primary Care Provider Edmund Cruz Fareed Cesar [phone] REASON FOR VISIT 3m F/U - COPD Encounters Encounter Location Date Provider Diagnosis Pulmonary [facility] [place] [address] [place] [address] 03/13/2025 Fareed Cruz Plan Of Treatment No Information Progress Notes * Pawan BUSTILLO LDOB:1955 (69 yo M)Acc No.[id number]:03/13/2025 UNLOCKED PROGRESS NOTE Follow Up Patient: John JENKINSjohny Hunter :?Fareed Nancy DODOB:1955???Age:69 Y ???Sex:MaleDate:03/13/2025Phone:[phone]:[address] [place], [place] [address]Pcp:Nakia Rascon Subjective: * Chief Complaints: * 1 . 3m F/U - COPD. * Medical History: Objective: * Vitals: Assessment: Plan: * Treatment: * * Electronic signature of Fareed Cruz DO on 05/21/2025 at 01:57 PM EDTSign off status: PendingVisit Status:?OFF CANC (OFFICE CANCEL) * Provider: Tino Cruz DO Date: 0 03/13/2025 Generated for Printing/Faxing/eTransmitting on:?05/21/2025 01:57 PM EDT
--- OUTSIDE RECORDS SUMMARY | 2025-05-14 09:37 | XMS_ITS | Continuity of Care Document ---
Author Organization [facility] Address [address] [place] [address] Phone Care Team Providers Care Linux Security Administrator Name Role Phone Nakia Rascon MD Primary Care Provider Tosha Jeff APRN Attending Provider Nakia Rascon MD Attending Provider [phone] Care Teams Patient Care Team Team Status: Active Member Role Status Dates Nakia Rascon MD Primary Care Provider Active Visit Care Team Team Status: Inactive Member Role Status Dates Nakia Rascon MD Primary Care Provider Active Start: March 25, 2025 End: March 25, 2025Tosha Jeff APRN FISHING VESSEL MATE-CAttending Provider ActiveStart: March 25, 2025 End: March 25, 2025 Patient Care Team Team Status: Inactive Member Role Status Dates Nakia Rascon MD Primary Care Provider Active Start: May 14, 2025 End: May 14, 2025Nakia Rascon MDAttending ProviderActiveStart: May 14, 2025 End: May 14, 2025 Chief Complaint and Reason for Visit Chief Complaint Admit Date Cough, congestion March 25, 2025 11 :58am Chest Congestion May 14, 2025 1 :08pm Reason for Visit Admit Date COPD with acute bronchitis March 25, 2025 11:58am COPD with acute bronchitis May 14, 2025 1:08pm Reason for Referral Referring Provider Name Referring Provider Address Referring Provider Phone Referral Date Requested Appointment Date Referral Reason May 14, 2025J44.0 - Chronic obstructive pulmonary disease with (acute) lower respiratory infection,J20.9 - Acute bronchitis, unspecified Allergies, Adverse Reactions, Alerts Allergen Type Severity Reaction Last Updated Verified Status No Known Allergies Allergy Unknown May 14, 2025 1:17pmYesActive Social History Smoking Status Status Start Date End Date Date of Observa tion Ex-smoker (finding) October 11, 2023 12:13pm Observation Status Observation Response Date of Response Legal Sex [facility] (finding) [facility] 1955 Family History Relationship Condition Age at Onset Recorded Date/T mckenzie brother Unknown Heart diseaseUnknownfatherHeart diseaseUnknownDeceasedUnknownmotherDeceased UnknownHeart diseaseUnknownsisterHeart diseaseUnknown Problems Active Problems Medical Problem Onset Date Status Comments Medicare annual wellness visit, subsequent Unknown Active Screening PSA (prostate specific antigen)UnknownActivePeripheral arterial occlusive diseaseUnknownActiveBenign essential hypertensionUnknownActiveFormer smokerUnknownActiveCOPD (chronic obstructive pulmonary disease)UnknownActive Problem List clean-up per request of Phys. EHR CmteCOPD with acute bronchitis UnknownActiveCOPD exacerbationUnknownActiveBronchitisUnknownActive Inactive/Resolved Problems Medical Problem Onset Date Status Comments Postoperative acute respiratory failure Unknown R esolved Medications Medication Status Dose Units Route Directions Qty Days St art Date Stop Date End Date Instructions Adherence Lisinopril 10 mg tablet Discontinued 0 .ROUTE.MTRUYTI12Gkqqy 2023 11:00amJune 2023 1:03pmTAKE 1 TABLET DAILY Lisinopril 10 mg tabletDiscontinued0.ROUTE.XCFZRDT33Mllk 12th, 2024 1:03pm July 09, 2024 3:13pmTAKE 1 TABLET DAILYTamsulosin (Flomax) 0.4 mg capsule Discontinued0.4MGPOTwice mxvux74Gmmfqot 2023 9:19amNovember 2023 11:23amTamsulosin (Flomax) 0.4 mg capsuleActive0.4MGPOTwice jkapx690Tkfyhvhd 2023 11:22amComplies with drug therapySimvastatin 40 mg xjkttoEmbpxw64NCQU Ueybqzu84Pubvhpsr 13th, 2024 11:23amComplies with drug therapyLisinopril 10 mg tabletActive0.ROUTE.QYIEQTO56Kzjkzvyd 2023 3:13pmTAKE 1 TABLET DAILY Complies with drug therapyRivaroxaban (Xarelto) 2.5 mg tabletDiscontinued2.5MGPO Twice bvvfc4986Vhmrymxz 2024 2:44pmAugust 2024 8:06amAlbuterol Sulfate (Ventolin Hfa) 90 mcg/actuation HFA aerosol erloofwHduxlmppzgwr1ZKCI INHALATIONFour times daily as needed for Wheezing8.5February 2024 10:17am May 14, 2025 1:34pmRivaroxaban (Xarelto) 2.5 mg tabletActive0.ROUTE .IEZDGTB02Urnqsh 2024 8:06amTAKE 1 TABLET BY MOUTH TWICE A DAYComplies with drug therapyNitroglycerin 0.4 mg tablet, sublingualActive0.4MGSUBLINGUALEVERY 5 MINUTES as needed for Chest Ehzg08Pgyjox 2024 8:14amComplies with drug therapyAspirin (Aspir-81) 81 mg Tablet,Delayed Release (Dr/Ec)Gozcpkgklaqi56FCOC DailyOctober 2020 12:00amFebruary 2023 5:28pmSimvastatin 40 mg toqtbxYlflgvaxnybx76CMHLEyitrvrJrtfqkd 2020 12:00amNovember 2023 11:23amTamsulosin (Flomax) 0.4 mg CapsuleDiscontinued0.4MGPOTwice dailyOctober 2020 12:00amOctober 2023 9:19amLisinopril 10 mg jaqedbNailhyzeeuxi89 MGPODailyOctober 2020 12:00amApril 2023 11:00amAlbuterol Sulfate (Ventolin Hfa) 90 mcg/actuation Hfa Aerosol JgpyiwtQtwttqjzjsze7HIHYMZNQUKCWAK Four times daily as needed for WheezingOctober 2020 12:00amDecember 2023 4:01pmPrasugrel Hcl 10 mg tncqavVlnghpfibysr62JUTBQecmaBffqumx 2020 12:00amOctober 2022 8:47tkYvfbyclvpvd-Gmhpftlsg-Eisgrhfo (Trelegy Ellipta) 100-62.5-25 mcg blister with spxfseOwbbuh5WNRRXSCZQGIXFZdekhOrrenfg 2020 12:00amComplies with drug therapyNitroglycerin 0.4 mg tablet, sublingual Discontinued0.4MGSUBLINGUALEVERY 5 MINUTES as needed for Chest PainOctober 2022 12:00amAugust 2024 8:14amMetoprolol Succinate 25 mg tablet extended release 24 tzLomsxr46ENLUHozycLofvwzq 2022 12:00amComplies with drug therapyEzetimibe 10 mg rcfccsAgjujx81VUZQMkwviIdugazi 2022 12:00amComplies with drug therapyRivaroxaban (Xarelto) 2.5 mg TabletDiscontinued2.5MGPOTwice loyjv5442Cdoekrdy 2023 1:00amFebruary 2024 2:44pmClopidogrel (Plavix) 75 mg iusfrwMjqnwxmzyjvg71RACKGsrbm41Ssufjetn 2023 1:00amFebruary 2024 2:28pmAlbuterol Sulfate (Ventolin Hfa) 90 mcg/actuation HFA aerosol fjhqgwbBxizrmoioplo0YYXPUJEEUAAYGYTtyk times daily as needed for Wheezing8.5 July 30, 2024 3:58pmFebruary 2024 10:17amAzithromycin 250 mg tablet Lweyuyftkwae4FF.GYCSWHQ7Kidivkzs 2023 1:00amFebruary 2024 2:25pmFor 250 mg dose pack: take 500 mg today (day 1), then 250 mg for 4 days (days 2-5) POBenzonatate 200 mg xxfynptGayxrrvuohmq355KXCZ7-6 TIMES PER DAY as needed for mzqhq46Xebkavxp 2023 1:00amFebruary 2024 2:25pmAspirin 81 mg tablet,sbftnghzYestsa52COJROdukcYjmpxfmz 2024 1:00amComplies with drug therapyFurosemide 20 mg cvnqziVtfwqw17MBGTZdjmcNlptxzb 2024 12:00am Complies with drug therapyAzithromycin 250 mg scaxfvNcccrx2XP.IGFKACI1Mzaoqwf 14th, 2025 1:31pmFor 250 mg dose pack: take 500 mg today (day 1), then 250 mg for 4 days (days 2-5) POComplies with drug therapyAlbuterol Sulfate (Ventolin Hfa) 90 mcg/actuation HFA aerosol qwndqpvBayloy5UNEOWFAMTGCXTSKhdj times daily as needed for Wheezing8.5May 14, 2025 1:31pmComplies with drug therapy Prednisone 20 mg rrxvvqBdcypx07UHAIMvnkx sxgth82PamhawmMay 14, 2025 1:31pm Complies with drug therapyAzithromycin 250 mg mrqtoeDzrnvoobtofn292ICNUxqwxa64 October 20, 2023 12:00amOctober 2023 8:04amTake 2 today and then 1 for the next four daysMethylprednisolone (Medrol (Jhonatan)) 4 mg tablets,dose pack Fysatvabqxsr8RQylv package gueoqwsjqb889Xldod 2023 12:00amOctober 2023 8:04amPO PER PKG DIRAzithromycin 250 mg rjloekBbccktpatgqn3GT.BBUJDES6Kez2024 10:45amA2024 12:10pmFor 250 mg dose pack: take 500 mg today (day 1), then 250 mg for 4 days (days 2-5) POPrednisone 20 mg tablet Ryiifdkauoqp53QZTTUbbjk iffqc90Cqp2024 12:00amAugu2024 12:10pm Valacyclovir 500 mg tabletActiveMGPOAugust 2024 12:00amComplies with drug therapyAzithromycin 250 mg tijksmZrgqifjfddma6AF.HJUDWEA6Pttlup2024 12:00amOctober 2024 1:34pmFor 250 mg dose pack: take 500 mg today (day 1), then 250 mg for 4 days (days 2-5) POPrednisone 20 mg mkcxebJtorbtlkwtqm56QSAK Twice acmpc69Dudvle2024 12:00amOctober 2024 1:34pm Immunizations Immunization Event Date Not Given Reason Dose Number Appraisal Analyst Lot Number Vaccine Information Statement (VIS) Detail Administration Location COVID-19 Jayleen Perkins ([employer]) November 10 COVIDJayleen Alaniz ([employer])December 01, 2020 Medical Equipment Device Date Implanted Device Details Multiple peripheral artery s tent, bare-metal May 21, 2021 MIGUEL: [id number] Issuing Agency: [facility] Device Id: [id number] Expiration Date: 2023-06-14 Serial Number: [id number] peripheral artery stent, bare-metalOctober 2020UDI: [id number] Issuing Agency: [facility] Device Id: [id number] Expiration Date: 2024-02-15 Serial Number: [id number] peripheral artery stent, bare-metalOctober 2020UDI: [id number] Issuing Agency: [facility] Device Id: [id number] Expiration Date: 2024-02-21 Serial Number: [id number] peripheral artery stent, bare-metalFebruary 2023UDI: [id number] Issuing Agency: [facility] Device Id: [id number] Expiration Date: 2026-05-04 Serial Number: [id number] peripheral artery stent, bare-metalFebruary 2023UDI: [id number] Issuing Agency: [facility] Device Id: [id number] Expiration Date: 2026-05-04 Serial Number: [id number] peripheral artery stent, bare-metalOctober 2022UDI: [id number] Issuing Agency: [facility] Device Id: [id number] Expiration Date: 2025-01-15 Lot Number: [id number] peripheral artery stent, bare-metalOctober 2022UDI: [id number] Issuing Agency: [facility] Device Id: [id number] Expiration Date: 2026-02-22 Lot Number: [id number] Vital Signs Vital Reading Result Reference Range Collection Date/Time Height 71 [in_i] March 25, 2025 12:43udEotdac32.58 kgAugust 2024 12:15pmBody Temperature 98.3 [degF]97.6-99.0August 2024 12:15pmHeart Rate70 /pis43-069Ixxygv 2024 12:15pmRespiratory rate19 /pyy19-28Mplwln 25th, 2025 12:15pmOxygen saturation by Pulse hbkkynkn60 %95-100August 2024 12:15pmBP Khfjqwae345 mm[Hg]100-140August 2024 12:15pmBP Zkbjwqynr27 mm[Hg]60-100August 2024 12:15pmBMI (Body Mass Index)27.5 kg/d7Usdpmv2024 12:66mkHtidlt63 [in_i]May 14, 2025 1:10mlLlxxvi92.35 kgOctober 2024 1:14pmBody Anwelzxurjf82.3 [degF]97.6-99.0October 2024 1:14pmHeart Akrk823 /gmc05-341 May 14, 2025 1:14pmOxygen saturation by Pulse mhunffgj72 %95-100October 2024 1:14pmBP Slzwmeda084 mm[Hg]100-140October 2024 1:14pmBP Adgwpxvvj56 mm[Hg]60-100October 2024 1:14pmBMI (Body Mass Index)27.4 kg/m2 May 14, 2025 1:14pm Advance Directives Advance Directive Response Recorded Date/ Time Advance Directives No May 11, 2021 11:03am Insurance Providers Guarantor Pawan Kaplan Address [address] [place] [id number] Info.Home Phone: Payer Policy Id Subscriber's Name Subscriber Id Effectiv e Date Expiration Date [facility] [id number] [place] Garrido [id number] Encounters Encounter Location(s) Arrival/Admit Date Discharge/Depart Date Provider(s) Departed Physician/Prov ider Office Visit -[facility] March 25, 2025 11:58am March 25, 2025 12:35pm Tosha Jeff APRN Departed Physician/Prov ider Office Visit -[facility] May 14, 2025 1:08pm May 14, 2025 1:36pm Nakia Rascon MD Recent Diagnosis Onset Date Admit Date COPD with acute bronchitis Unknown Augus t 2024 11:58am COPD with acute bronchitis Unknown Octob er 2024 1:08pm Assessments Diagnosis Onset Date Resolution Status Admit Date COPD with acute bronchitis acuteAugust 2024 11:58amCOPD with acute bronchitisacuteOctober 2024 1:08pm Plan of Treatment Author Tosha Jeff [facility]2024 12:38pmComplete medication as prescribed. Patient advised to increase fluid intake, use otc and humidify the air. Aerosal tx as prescribed. May use tylenol as needed. F/U if not improving. To ER if symptoms worsen or fever over 101.5. Treatment options discussed. All questions answered. Patient voiced understanding. Future Tests Future scheduled test information is unavailable Pending Tests Pending diagnostic test information is unavailable Future Visits Future appointment information is unavailable Referrals to Other Providers Reason for Referral Referral Start Date Provider Raymundo lópez Contact Information Provider Address J44.0 - Chronic obstructive pulmonary disease with (acute) lower respiratory infection,J20.9 - Acute bronchitis, unspecifiedOctober 2024FP Pul[facility] MedicineWork Phone: [phone] [address] [address] Future Procedures Future procedure information is unavailable Future Medications Future medication information is unavailable Patient Instructions Patient instructions are unavailable Hospital Discharge Instructions Ambulatory Orders* Referral to Pulmonology Time Frame: 05/14/25, Location: None Selected
--- OUTSIDE RECORDS SUMMARY | 2025-05-21 13:57 | XMS_ITS | Clinical Summary ---
Author Organization [facility] Address [address] [place] [address] Care Team Providers Care Wind Field Service Manager Name Role Phone Nakia Rascon MD Primary Care Provider [phone] Medications MedicationSigDispense QuantityRefillsLast FilledStart DateEnd DateStatus varenicline (Chantix) 0.5 MG tablet ChantixActive Sbvdhbgzibb-Ueyioldow-Fhawem (Trelegy Ellipta) 100-62.5-25 MCG/INH aerosol powder 1 puff 1 (one) time each day at the same time.Active albuterol HFA (Ventolin HFA) 90 mcg/act inhaler every 4 (four) hours.Active aspirin (Noman Low Dose) 81 MG EC tablet 1 (one) time each day at the same time.Active lisinopril 10 MG tablet 1 (one) time each day at the same time.Active simvastatin (Zocor) 40 MG tablet 1 (one) time each day at the same time.Active ezetimibe (Zetia) 10 MG tablet Take 10 mg by mouth in the morning.Active metoprolol succinate XL (Toprol-XL) 25 MG 24 hr tablet Take by mouth. Do not crush or chew.Active tamsulosin (Flomax) 0.4 MG 24 hr capsule Take 0.4 mg by mouth in the morning.Active nitroglycerin (NitrolinguaL) 0.4 MG/SPRAY spray Place 1 spray under the tongue every 5 (five) minutes if needed for chest pain. Active Active Problems ProblemNoted DateDiagnosed CvjuYughdanfwans05/08/2023Internal derangement of left nmphotpk31/08/2023 Family History Medical HistoryRelationNameCommentsDiabetesFatherHeart diseaseFatherHeart diseaseMotherRelationNameStatusCommentsFatherDeceasedMotherDeceased Social History Tobacco UseTypesPacks/DayYears UsedDateSmoking Tobacco: Every DayCigarettes Tobacco Cessation:Ready to Q uit: Not Asked; Counseling Given: Not Answered Comments:Smokes 6-10 cigarettes/day Alcohol UseStandard Drinks/WeekCommentsYes0 (1 standard drink = 0.6 oz pure alcohol)Sex and Gender InformationValueDate RecordedSex Assigned at BirthNot on fileLegal MuaIvro0710/13/2022 6:49 PM EDTGender IdentityNot on fileSexual OrientationNot on file Last Filed Vital Signs Vital SignReadingTime TakenCommentsBlood Pressure--Pulse--Temperature-- Respiratory Rate--Oxygen Saturation--Inhaled Oxygen Concentration--Tltdsw49.9 kg (185 lb)11/18/2022 12:00 PM BDPNrdlyo911.3 cm (5' 11 )11/18/2022 12:00 PM EDT Body Mass Index25.8011/18/2022 12:00 PM EDT Plan of Treatment Not on file Insurance Care Teams Team MemberRelationshipSpecialtyStart DateEnd Date Nakia Rascon MD PCP - GeneralFamily Medicine12/30/22
--- OUTSIDE RECORDS SUMMARY | 2025-05-21 13:57 | XMS_ITS | Patient Health Record ---
Author Organization [facility] [place] Address [address] [place] [address] Care Team Providers Care Elevator Constructor Supervisor Name Role Phone Nakia Rascon Primary Care Provider Fareed Alvarado Unavailable [phone] Allergies No Known Allergies Reason For Referral No Information Medications Medication SIG (Take, Route, Frequency, Duration) Notes Start Date End Date Status Trelegy Ellipta 100-62.5-25 MCG/ACT 1 puff Inhalation Once a day; Duration: 90 days Rinse after use 4ActivePrevnar 20 0.5 MLas directed Intramuscular once; Duration: 1 5ActiveArexvy 120 MCG/0.5MLas directed Intramuscular once; Duration: 1 days5ActiveTamsulosin HCl 0.4 MGOral; Duration: 90 DaysActive Simvastatin 40 MGOral; Duration: 90 DaysActivepredniSONE 20 MGOral; Duration: 5 DaysActiveAlbuterol Sulfate HFA 108 (90 Base) MCG/ACT2 puffs as needed for SOB Inhalation Q4H; Duration: 30 daysActiveNitroglycerin 0.4 MGSublingual; Duration: 30 DaysActiveMetoprolol Succinate ER 25 MGOral; Duration: 90 DaysActive Lisinopril 10 MGOral; Duration: 90 DaysActiveEzetimibe 10 MGOral; Duration: 90 DaysActiveAzithromycin 250 MGTAKE 2 TABLETS BY MOUTH TODAY, THEN TAKE 1 TABLET DAILY FOR 4 DAYS DIRECTED Oral; Duration: 5 DaysActiveXarelto 2.5 MGTAKE 1 TABLET BY MOUTH TWICE A DAY Oral; Duration: 30 DaysActiveBoostrix 5-2.5-18.5 LF-MCG/0.5as directed Intramuscular once; Duration: 1 days5Active Immunizations Vaccine Route Administration Date Status Comme nts SARS-COV-2 (COVID 19 Pfizer 30mcg/0.3mL) Unknown 06/09/2021 Administered Social History Tobacco Use: Social History Observation Description Date Details (start date - stop date) Former Smoker NA - NA Tobacco Control (Standard) Question Answer Notes Tobacco use: Former smoker Additional Findings: Tobacco tpj-hflbOr-ewrbk cigarette smoker (20-30/day) Problems Problem Type SNOMED Code ICD Code Onset Dates Problem Status W/U Status Risk Notes Problem Centrilobular emphysema (03226676) Centri lobular emphysema (J43.2) ActiveconfirmedProblemLong-term current use of inhaled steroid (367375932)FCI (current) use of inhaled steroids (Z79.51)ActiveconfirmedProblem Gastroesophageal reflux disease (492776335)GERD (gastroesophageal reflux disease) (K21.9)ActiveconfirmedProblemMultiple pulmonary nodules (242575076) Multiple pulmonary nodules (R91.8)ActiveconfirmedProblemEx-tobacco user (finding) (302236876)History of tobacco abuse (Z87.891)ActiveconfirmedProblem Qzoqd-0-vetvjicwxjp deficiency (77015564)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)Activeconfirmed Vital Signs Heart Rate 71 /min 12/11/2024 RA Activity/Res ting Temperature 97.1 degrees Fahrenheit 12/11/2024 RA A ctivity/Resting Respiratory Rate 18 /min 12/11/2024 RA Activity /Resting Oximetry 90 % 12/11/2024 RA Activity/Res ting Blood pressure diastolic 85 mm Hg 12/11/2024 RA Activity/Resting Height 72 in 12/11/2024 RA Activity/Res ting Blood pressure systolic 160 mm Hg 12/11/2024 RA A ctivity/Resting Weight 205.0 lbs 12/11/2024 RA Activity/Res ting BMI 27.8 kg/m2 12/11/2024 RA Activity/Res ting Encounters Encounter Location Date Provider Diagnosis [facility] [place] [address] [place] [address] 06/27/2024 [facility] Centrilobular emphys wicho J43.2 ; Multiple pulmonary nodules R91.8 ; 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 ; FCI (current) use of inhaled steroids Z79.51 and History of tobacco abuse Z87.891 [facility] [place] [address] [facility] [place] [address] 12/11/2024 [facility] Centrilobular emphys wicho J43.2 ; Hypoxemia R09.02 ; AAT (undjl-5-xqkngpjoyef) deficiency E88.01 ; Encounter for immunization Z23 ; Multiple pulmonary nodules R91.8 ; 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 Z79.51 and History of tobacco abuse Z87.891 Pulmonary [facility] [address] [facility] [place] [address] 06/11/2024 [facility] [address] [place] [address]/09/2023 [facility] [address] [place] [address] 09/17/2024[facility] [address] [facility] [place] [address]/07/2025[facility] [address] [facility] [place] [address]/12/2024[facility] Encounter Date Diagnosis (ICD Code) Assessment Notes Treatment Notes Treatment Clinical Notes Section Notes 06/27/2024 Centrilobular emphysema (ICD-10 - J43.2) He continues to be symptomatic. Tried to change from Trelegy to Stiolto, but patient appears a little confused on what to take. When he does take Trelegy, he is using it inappropriately with use onlyonce every 2-3 days. I asked the patient [...] looking into a new insurance company as [employer] is giving him problems with Trelegy. It appears that he has enough medication to last him until the new year. Will have him come back in 2 months and hopefully he has his formulary that I can find out what is covered if you want to try any new therapies. 06/27/2024Multiple pulmonary nodules (ICD-10 - R91.8) Patient's had [...] Today, he reiterates that he does not w ant any chemo, radiation, or other surgery/procedure. His reasoning is that he thinks if something were bad, he would be feeling something by now. I stated that this is not a great approach to monitor her health care. As of this time, no further imaging has been ordered as the patient does not wantanything done. Once again, he was counseled that this could be cancer. 5Centrilobular emphysema (ICD-10 - J43.2) He is doing better now that he uses Trelegy on a daily basis, along with albuterol before activity.Denies any adverse reactions. Reviewed options for him. Majority of them would require repeat testing, which he does not want to do. -Pulmonary rehabilitation (never participated) -Ohtuvayre -Dupixent (needs labs for eosinophils) -Endobronchial valves (would need to document stability or improvement in suspicious nodules, whichhe refused further testing) -O2 (needs full testing - 6MW, nocturnal) -Prolastin for HI (unclear if he would qualify - needs PFT, possible repeat level testing) Despite all these options, he voiced he did not want to repeat testing at this time and will hold off on any of these. He states he will go home and discuss with his options. Continue Trelegy & albuterol for now. 12/11/2024Hypoxemia (ICD-10 - R09.02) SpO2 88% today. Patient [...] he once again denied any further w/up. 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 Discussed consideration of augmentation therapy - would recheck PFT to see if any decline +/- retesting level. Patient refused this option today. 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 Level is adequate at this time, but smoking can still affect the I allele and increase his risk of further emphysematous development. 06/27/2024Long term (current) use of inhaled steroids (ICD-10 - Z79.51) He was counseled to rinse/gargle if he continues Trelegy. 12/11/2024Encounter for immunization (ICD-10 - Z23) Discussed pulmonary-related vaccines today which involved shared clinical decision-making with the patient. -Influenza: Annual influenza vaccination is recommended. Explained that influenza can sometimes be fatal, especially in patients with underlying lung disease. Influenza vaccination is recommended forall people. Patient refused. -Pneumococcal: Reviewed the patient's pneumococcal vaccination record. The CDC currently recommendsPCV-20 vaccination regardless of past pneumococcal vaccinations. Prevnar [...] gelacio COVID-19 as well, with the potential fordeath. I explained that the CDC recommends vaccination with boosters and I deferred the choice to the patient. Patient refused. 06/27/2024History of tobacco abuse (ICD-10 - Z87.891) Patient quit smoking September of this year. He was allotted for his efforts. He does not meet LDCT screening guidelines because of the abnormal nodules that would need followed up with a diagnostic CT chest. 12/11/2024Multiple pulmonary nodules (ICD-10 - R91.8) History: Patient's [...] is off the table as an option. 12/11/2024Long term (current) use of inhaled steroids (ICD-10 - Z79.51) He was counseled to rinse/gargle if he continues Trelegy. 12/11/2024History of tobacco abuse (ICD-10 - Z87.891) Patient [...] End Date [address] [place] [address] [phone] Felecia Kaplan - patient is the insured Medical (General) History Medical History History ICD Code Centrilobular emphysema J43.2 AAT (zmhfe-8-yrjycwufhei) deficiency E88 .01 CAD (coronary artery disease) I25.10 HTN (hypertension) I10 HLD (hyperlipidemia) E78.5 GERD (gastroesophageal reflux disease) K 21.9 Multiple pulmonary nodules R91.8 History of tobacco abuse Z87.891 Surgical History Surgery Date(Month/Year) vascular stent coronary artery bypass graftCardiac CatheterizationHernia RepairShoulder Surgery-Left
--- OUTSIDE RECORDS SUMMARY | 2025-05-21 13:57 | XMS_ITS | Clinical Summary ---
Author Organization [facility] tem Address [id number] [address] [place] [address] Care Team Providers Care Wire Inserter Name Role Phone Nakia Rascon MD Primary Care Provider [phone] Allergies No known active allergies Medications MedicationSigDispense QuantityRefillsLast FilledStart DateEnd DateStatus ysnsgubtoue-xwunrsetd-inxtnsjw (TRELEGY ELLIPTA) 100-62.5-25 mcg blister with device Trelegy Ellipta 100 mcg-62.5 mcg-25 mcg powder for inhalationActive aspirin 81 mg daily.Active albuterol (PROVENTIL HFA;VENTOLIN HFA) 90 mcg/actuation inhaler INHALE 2 PUFFS BY MOUTH EVERY 4 HOURS NEEDED FOR SHORTNESS OF BREATH 04/01/2022ctive azithromycin (ZITHROMAX) 250 mg tablet azithromycin 250 mg tabletActive lisinopriL (PRINIVIL,ZESTRIL) 10 mg tablet 09/12/2022ctive nitroglycerin (NITROSTAT) 0.4 MG SL tablet nitroglycerin 0.4 mg sublingual tabletActive prasugreL (EFFIENT) 10 mg tablet 09/12/2022ctive simvastatin (ZOCOR) 40 mg tablet 09/12/2022ctive tamsulosin (FLOMAX) 0.4 mg capsule 09/12/2022ctive Social History Tobacco UseTypesPacks/DayYears UsedDateSmoking Tobacco: Some DaysCigarettes Tobacco Cessation:Ready to Q uit: No; Counseling Given: Not Answered Sex and Gender InformationValueDate RecordedSex Assigned at BirthNot on file Legal XafLatd9309/28/2022 9:32 AM ESTGender IdentityNot on fileSexual Orientation Not on file Last Filed Vital Signs Vital SignReadingTime TakenCommentsBlood Evrmpogh810/9303 1:21 PM EDT Zawmj479510/11/2022 1:21 PM EDTTemperature--Respiratory Rate--Oxygen Saturation-- Inhaled Oxygen Concentration--Sqpfgl10.9 kg (185 lb)10/11/2022 1:21 PM EDTHeight 177.8 cm (5' 10 )10/11/2022 1:21 PM EDTBody Mass Index26.54010/11/2022 1:21 PM EDT Plan of Treatment Health MaintenanceDue DateLast DoneCommentsDepression Uyuarlpzo76/28/1968Tobacco Lhnxtdqjj86/28/1968DTaP,Tdap and Td Vaccines (1 - Tdap) Zoster (Shingles) Vaccine (1 of 2)11/26/2005Fall Risk Fzmuajvxj75/28/2021dult BMI Lkyuovfeh36OVID-19 Vaccine ( season)2025 06/09/2021, 11/07/2020, 10/28/2020, Additional history existsInfluenza Vaccine 04/01/2025 Medical Devices Not on file Insurance Care Teams Team MemberRelationshipSpecialtyStart DateEnd Date Nakia Rascon MD [address] [place] [address] PCP - GeneralFamily Medicine10/06/22
--- OUTSIDE RECORDS SUMMARY | 2025-05-21 13:57 | XMS_ITS | Clinical Summary ---
Author Organization [facility] Address [address] [place] [address] Care Team Providers Care Hot Roll Inspector Name Role Phone Nakia Rascon MD Primary Care Provider [phone] Allergies No known active allergies Medications MedicationSigDispense QuantityRefillsLast FilledStart DateEnd DateStatus tamsulosin (Flomax) 0.4 mg 24 hr capsule Take 0.4 mg by mouth in the morning.06/22/2021ctive simvastatin (Zocor) 40 mg tablet Take 40 mg by mouth at bedtime.04/20/2021ctive nitroglycerin (Nitrostat) 0.[address] 0.4 mg under the tongue every 5 (five) minutes if needed for chest pain. May repeat times 3 doses as needed for chest painActive lisinopril 10 mg tablet Take 10 mg by mouth in the morning.04/20/2021ctive aspirin 81 mg EC tablet Take 81 mg by mouth in the morning.Active albuterol 90 mcg/actuation inhaler Inhale 2 puffs every 4 (four) hours if needed.04/01/2022ctive svmmfikqolw-nehupwdlr-plvvdzim (Trelegy Ellipta) 100-62.5-25 mcg blister with device Inhale 1 puff in the morning.04/20/2021ctive nicotine (Nicoderm CQ) 7 mg/24 hr patch Indications:Tobacco dependencyPlace 1 patch on the skin 1 (one) time each day at the same time. 30 patch 12/07/2022ctive Additional Information Patient not taking.Reported on 03/11/2025 Xarelto 2.5 mg tablet Take 2.5 mg by mouth in the morning and at bedtime.Active metoprolol succinate XL (Toprol-XL) 25 mg 24 hr tablet Indications:Coronary artery disease involving habematolel coronary artery of habematolel heart without angina pectoris,PAD (peripheral artery disease)Take 1 tablet (25 mg) by mouth once daily as directed. Do not crush or chew. 90 tablet 4Active ezetimibe (Zetia) 10 mg tablet Indications:Mixed hyperlipidemiaTAKE 1 TABLET BY MOUTH EVERY DAY IN THE MORNING 90 tablet 5Active valACYclovir (Valtrex) 500 mg tablet Take 500 mg by mouth two times daily.5Active prednisoLONE acetate (Pred-Forte) 1 % ophthalmic suspension 1 drop four times daily.Active furosemide (Lasix) 20 mg tablet Indications:Pulmonary hypertension (CMS/HCC)Take 1 tablet (20 mg) by mouth in the morning. 90 tablet ctive Active Problems ProblemNoted DateDiagnosed DateFormer qczvvv1203/09/2024eripheral arterial occlusive hswdier4103/09/2024ostoperative acute respiratory lfvxmhg6103/09/2024 Tbawe-9-ithkuieqpcz qxzdzrjxyj28rthritis Feeling of incomplete bladder duzzjmxo44Gastroesophageal reflux jffumln47Long term current use of inhaled steroid /04/2024Multiple pulmonary vzmunuc06laudication Internal derangement of left qurohwta24/04/2024 Urinary qgeltny1809/27/2022Tobacco dependence etqhfogw22/27/2023hronic obstructive pulmonary qkbauqm6809/27/20229883Pxeuezyjppn45/27/2023oor urinary stream 09/27/2022Myocardial xyowvqzogg65/27/2023Increased frequency of urination 09/27/2022Incomplete emptying of slzleol6509/27/2022Hypertensive disorder 09/27/20221122Qyjduppcnytfcr04/27/8021Vjdmdpqb31/27/6036Muovemc65/27/2023yspnea on yeywxrhr90/27/2023urrent csfuvt63/ Overview (09/27/2022): Added secondary to documentation in Social History. Coronary gtpegbvevggpland51/27/2023ardiovascular stress test lrjzdqay76/27/2023 Benign prostatic hyperplasia with urinary vsvczutkrno82/27/2023 Encounters DateTypeDepartmentCare HzvgFrjrqmaecgg66/02/2025Telephone [place] [address] [facility] [place] [address] LashaKyleigh salvador MA 03/21/2025Orders Only [address] [place] [address] ProviderJenna MD 03/11/2025 10:00 AM EDTOffice Visit [address] [place] [address] Juan Cardona MD Coronary artery disease involving habematolel coronary artery of habematolel heart without angina pectoris (Primary Dx); Essential hypertension; PAD (peripheral artery disease); Mixed hyperlipidemia; Shortness of breath; Status post insertion of drug eluting coronary artery stent03/02/2025Refill [address] [place] [address] Adiel Moran MD Mixed hyperlipidemiafrom Last 3 Months Family History Medical HistoryRelationNameCommentsCoronary artery diseaseBrotherCoronary artery diseaseMotherCoronary artery diseaseSisterRelationNameStatusCommentsBrother FatherDeceasedMotherDeceasedSister Social History Tobacco UseTypesPacks/DayYears UsedDateSmoking Tobacco: FormerCigarettes Smokeless Tobacco: Never Tobacco Cessation:Counseling Given: Not Answered Alcohol UseStandard Drinks/WeekCommentsNot Currently0 (1 standard drink = 0.6 oz pure alcohol)moderateUT Safety & EnvironmentAnswerDate RecordedFear of Current or Ex-PartnerNot on file09/22/2023Emotionally AbusedNot on file09/22/2023 Physically AbusedNot on file09/22/2023Sexually AbusedNot on file09/22/2023 Physically or Sexually AbusedNot on file09/22/2023Sex and Gender Information ValueDate RecordedSex Assigned at WyidoPauz67/17/2023 8:56 AM EDTLegal SexMale 01/27/2022 9:50 PM EDTGender SfwpibdlCpte44/17/2023 8:56 AM EDTSexual OrientationHeterosexual or Hesqvjwy10/17/2023 8:56 AM EDT Last Filed Vital Signs Vital SignReadingTime TakenCommentsBlood Ptvxnkqd837/7903/11/2025 10:09 AM EDT Dxrro987003/11/2025 10:09 AM EDTTemperature--Respiratory Pdke994811/15/2022 12:29 PM EDTOxygen Ezhaepxugm58%03/11/2025 10:09 AM EDTInhaled Oxygen Concentration-- Wheqcr25.3 kg (199 lb)03/11/2025 10:09 AM BWVGxqyxq934.9 cm (6')03/11/2025 10:09 AM EDTBody Mass Index26.9903/11/2025 10:09 AM EDT Plan of Treatment DateTypeDepartmentCare Team (Latest Contact Info)Vnxcxhbyhfk54/21/2025 9:00 AM ESTOffice Visit [facility] [place] [address] [place] [address] Juan Cardona MD [address] [facility] [address] [facility] [place] [address] Health MaintenanceDue DateLast DoneCommentsCT Rptocffnfhgp97/28/1956Colonoscopy 1955olorectal Cancer Jffpyeqwb10/28/1956FIT-DNA1955FIT1955 FOBT1955Medicare Annual Wellness (AWV)1955 7788Cqdfswqrwzfxn18/28/1956 Depression Arblvaudj94/28/1968Pneumococcal Vaccine: 50+ Years (1 of 2 - PCV) 11/26/1974Zoster Vaccines (1 of 2)11/26/2005dult Dyeylms91/24/ Fall Risk Sfdvsuijs20/28/2021OVID-19 Vaccine ( season)2025 06/09/2021, 10/28/2020, 10/06/2020Influenza Vaccine (#1)2025HIB Vaccines Aged OutNo longer eligible based on patient's age to complete this topicHPV VaccinesAged OutNo longer eligible based on patient's age to complete this topic IPV VaccinesAged OutNo longer eligible based on patient's age to complete this topicMeningococcal B VaccineAged OutNo longer eligible based on patient's age to complete this topicMeningococcal VaccineAged OutNo longer eligible based on patient's age to complete this topicRotavirus VaccinesAged OutNo longer eligible based on patient's age to complete this topic Procedures Procedure NamePriorityDate/TimeAssociated DiagnosisCommentsCOMPLETE TRANSTHORACIC ECHO (TTE) W/WO IMAGING AGENT, STRAIN, 3D, BUBBLE STUDYRoutine 03/21/2025 4:23 PM EDTfrom Last 3 Months Results * Complete Echo (TTE) w/wo Imaging Agent, Strain, 3D, Bubble Study (03/21/2025 4:23 PM EDT)Anatomical RegionLateralityModalityUltrasound Narrative Authorizing ProviderResult TypeResult StatusHistorical Provider MDCV ECHO PROCEDURESFinal Result from Last 3 Months Insurance Care Teams Team MemberRelationshipSpecialtyStart DateEnd Date Nakia Rascon MD [address] [facility] [address] PCP - General09/27/22
--- OUTSIDE RECORDS SUMMARY | 2025-05-21 13:58 | XMS_ITS | CCD ---
Author Organization [facility] Care Team Providers Care Cargo Inspector Name Role Phone ELTAHAWBennie, EHAB A Admitting Unavailable ELTAHAWY, EHAB A Attending Unavailable KEATON RICO Referring Unavailable KEATON RICO Primary Care Unavailable KEATON RICO Primary Care Physician Tom Schroeder Unavailable Keaton Rico Unavailable DR KEATON RICO Primary Care Unavailable SAMSA ., NICKO Attending Unavailable ZIEBCHERYL, DR MUNIR Balderas Consulting Unavailable SAMSA ., NICKO Admitting Unavailable SAMSA ., NICKO Consulting Unavailable JACKY, DR KEATON Hernandes Primary Care Unavailable ALGHOTHANI, MOHAMAMartin Admitting Unavailable ALGHOTHANI, MOHAMAD Attending Unavailable ALGHOTHANI, MOHAMAD Consulting Unavailable MISC, DR BRICEÑO Consulting Unavailable JACKY, DR KEATON Hernandes Primary Care Unavailable MISC, DR BRICEÑO Admitting Unavailable MISC, DR BRICEÑO Attending Unavailable RICO, DR KEATON Hernandes Primary Care Unavailable TSERING, MARITZA Admitting Unavailable MARITZA CAGLE Attending Unavailable MARITZA CAGLE Consulting Unavailable BEAUEBCHERYL, DR MUNIR Balderas Consulting Unavailable JACKY, DR KEATON Hernandes Primary Care Unavailable SAMSA ., NICKO Admitting Unavailable SAMSA ., NICKO Attending Unavailable SAMSA ., NICKO Consulting Unavailable Madie Honeycutt Unavailable MD Keaton Rico Primary Care Provider [phone] LANDEN Honeycutt Attending Provider MD Tom Schroeder Attending Provider MD Keaton Rico Primary Care Provider MD Tom Schroeder Attending Provider [phone] MD Tom Schroeder Admit Provider [phone] MD Juventino Kruse Other Provider MD Keaton Rico Primary Care Provider [phone] MD Tom Schroeder Attending Provider [phone] Keaton Rico MD Primary Care Provider Tom Schroeder MD Attending Provider Tom Schroeder Attending Unavailable Keaton Rico Primary Care Unavailable Tom Schroeder Admitting Unavailable Keaton Rico Primary Care Unavailable Elda, Tom Admitting Unavailable Tom Schroeder Attending Unavailable Elda, Tom Attending Unavailable Juventino Kruse Consulting Unavailable Keaton Rico Primary Care Unavailable Tom Schroeder Admitting Unavailable Elda, Tom Admitting Unavailable Keaton Rico Primary Care Unavailable Tom Schroeder Attending Unavailable Keaton Rico MD Primary Care Provider Tosha Jeff APRN Attending Provider ARAVIND JOSÉ Attending Unavailable LEONORA CARDONA Attending Unavailable Lorin Small Attending Unavailable Lorin Small Attending Unavailable Keaton Rico MD Attending Provider [phone] Allergies Allergy ClassificationReported Allergen(s)Allergy TypeDate of OnsetReaction(s) Facility (1 source)No Known Medication Allergies; Translations: [No Known Medication Allergies]Propensity to adverse reactions (disorder)[facility] Medications Current Medications MedicationDrug Class(es)DatesSig (Normalized)Sig (Original)acyclovir 400 mg oral tablet (3 sources)Herpesvirus Nucleoside Analog DNA Polymerase Inhibitor, Herpes Simplex Virus Nucleoside Analog DNA Polymerase Inhibitor, Herpes Zoster Virus Nucleoside Analog DNA Polymerase InhibitorStart: 39-96-2031yazy 1 mg by mouth twice dailyacyclovir 400 mg Tab mg tab(s), Oral, BID, Refills(s) 0 Start Date: 06/22/21 Status: Orderedaspirin 81 mg oral capsule (20 sources)Platelet Aggregation Inhibitor, Nonsteroidal Anti-inflammatory Drug Start: 42-73-7462wvtv 1 mg by mouth every twenty-four hoursaspirin 81 mg oral capsule mg cap(s), Oral, q24hr, Refills(s) 0 Start Date: 04/04/25 Status: Ordered Repeat number: 1Start: 90-48-4909caro 1 tablet by mouth once dailyAspirin 81 mg tablet,chewable Active 81 MG PO Daily September 04, 2024 1:00am Complies with drug therapyStart: 05-13-2021 End: 58-42-6241cslb 1 tablet by mouth once dailyAspirin (Aspir-81) 81 mg Tablet,Delayed Release (Dr/Ec) Discontinued 81 MG PO Daily May 13, 2021 12:00am September 17, 2023 5:28pmStart: 37-98-1570zlqa 1 mg by mouth every four hoursaspirin 81 mg oral capsule mg cap(s), Oral, q4hr, Refills(s) 0 Start Date: 04/20/21 Status: Ordered Repeat number: 1take 1 tablet by mouth every twenty-four hoursAspirin 81 81 MG 1 tablet Orally Once a day Activetake 1 tablet by mouth once dailyAspirin 81 81 MG 1 tablet Orally Once a day Activeazithromycin 250 mg oral tablet (18 sources)Macrolide AntimicrobialStart: 12-07-2024 End: 56-53-5681Dbqqluakudrc 250 mg tablet Active 0 PO .COMPLEX May 14, 2025 1:31pm For 250 mg dose pack: take 500 mg today (day 1), then 250 mg for 4 days (days 2-5) PO Complies with drug therapyStart: 07-30-2024 End: 38-18-9435Gomcxczbzlca 250 mg tablet Discontinued 0 PO .COMPLEX July 30, 2024 1:00am September 04, 2024 2:25pm For 250 mg dose pack: take 500 mg today (day 1), then 250 mg for 4 days (days 2-5) POStart: 10-20-2023 End: 60-37-8596Cuydxfeqbcvf 250 mg tablet Discontinued 250 MG PO daily 01 03October 20, 2023 12:00am May 09, 2024 8:04am Take 2 today and then 1 for the next four daysStart: 28-02-6383Jnqttchbpayk 250 MG as directed Orally 2 tabs po today, then 1 tab daily x 4 more days for 5 Oct, Not-Takingdoxycycline hyclate 100 mg oral capsule (2 sources)Tetracycline-class DrugStart: 04-04-2025 End: 98-10-1638eqxhudwqsdz hyclate 100 mg Cap 100 mg = 1 cap(s), Oral, BID, may substitute hyclate for monohydratebased on availability, X 14 day(s), # 28 cap(s), Refills(s) 0, Pharmacy: [facility]/pharmacy #[id number], 180, cm, 04/04/25 15:44:00 EDT, Height/Length Dosing, 88.5, kg, 04/04/25 15:44:00 EDT, Weight Dosing Start Date: 04/04/25 Stop Date: 04/18/25 Status: Ordered Quantity: 28.0 Unit: cap(s) Repeat number: 1Start: 01-19-2022 End: 81-65-2888fdag 1 capsule by mouth every twelve hoursdoxycycline hyclate 100 mg Cap 100 mg = 1 cap(s), Oral, q12hr, X 21 day(s), # 42 cap(s), Refills(s)0, Pharmacy: [facility]/pharmacy #[id number], 180, cm, 01/15/22 10:43:00 EDT, Height/Length Dosing, 85, kg, 12/21/21 11:01:00 EDT, Weight Dosing Start Date: 01/19/22 Stop Date: 02/09/22 Status: OrderedErythromycin (8 sources)Macrolide, Macrolide AntimicrobialStart: 49-68-5396einemzloiasp ophthalmic 0.5% ointment 0.5 in, Eye-Both, QID, 3.5 gram, Refill(s) 0 Start Date: 06/22/21 Status: Ordered Quantity: 3.5 Unit: g Repeat number: 1Start: 86-21-1699bhgoepqierhp ophthalmic 0.5% ointment 0.5 in, Eye-Both, QID, 3.5 gram, Refill(s) 0 Start Date: 06/22/21 Status: OrderedStart: 19-23-9399kbqbmlmimvpa ophthalmic 0.5% ointment 0.5 in, Eye-Both, QID, 3.5 gram, Refill(s) 0 Start Date: 06/22/21 Status: OrderedErythromycin 5 MG/GM 1 application into the lower eyelid of affected eye Ophthalmic Four times a day Activeezetimibe 10 mg oral tablet (14 sources)Dietary Cholesterol Absorption InhibitorStart: 83-17-2854yegz 1 tablet by mouth once daily in the morningezetimibe 10 mg Tab TAKE 1 TABLET BY MOUTH EVERY DAY IN THE MORNING Start Date: 04/04/25 Status: Ordered Repeat number: 0Hmszkjguaxr-Tvkmgtqrh-Ziqtzwcw (7 sources)Anticholinergic, Corticosteroid, beta2-Adrenergic AgonistStart: 66-92-3298Wuucwvlcosw-Umeclidin-Vilanter (Trelegy Ellipta) 100-62.5-25 mcg blister with device Active 1 INH INHALATION Daily May 13, 2021 12:00am Complies with drug therapyStart: 71-38-7141Deuiixlbtkj-Umeclidin-Vilanter (Trelegy Ellipta) 100-62.5-25 mcg blister with device Active 1 INH INHALATION Daily May 12, 2021 11:00pmStart: 60-56-5879Kndgcobmwfq-Umeclidin-Vilanter (Trelegy Ellipta) 100-62.5-25 mcg blister with device Active 1 INH INHALATION Daily May 13, 2021 12:00amfurosemide 20 mg oral tablet (2 sources)Loop DiureticStart: 12-00-9482lmxx 1 tablet by mouth once daily Furosemide 20 mg tablet Active 20 MG PO Daily May 14, 2025 12:00am Complies with drug therapyStart: 24-20-0036lmxu 1 tablet by mouth once daily furosemide 20 mg Tab 20 mg = 1 tab(s), Oral, Daily, # 30 tab(s), Refills(s) 0 Start Date: 04/04/25 Status: Ordered Quantity: 30.0 Unit: tab(s) Repeat number: 1 gatifloxacin 5 mg/ml ophthalmic solution (4 sources)Quinolone AntimicrobialStart: 66-87-8997qvjl 1 drop(s) into the eye(s) twice dailygatifloxacin 0.5% ophthalmic solution drop(s), BID, Refill(s) 0 Start Date: 06/22/21 Status: Ordered Repeat number: 124 hr metoprolol succinate 25 mg extended release oral tablet (8 sources)beta-Adrenergic BlockerStart: 80-14-5215nicy 1 tablet by mouth once dailyMetoprolol Succinate 25 mg tablet extended release 24 hr Active 25 MG PO Daily May 18, 2023 12:00am Complies with drug therapyStart: 40-23-6076ekmz 10 mg by mouth once dailyMetoprolol Succinate Active 10 MG PO Daily May 17, 2023 11:00pmMetoprolol Succinate Activenitroglycerin 0.4 mg sublingual tablet (11 sources)Nitrate VasodilatorStart: 76-55-6487gsvriaionmbyk 0.4 mg sublingual Tab TAKE 1 TABLET SUBLINGUALLY EVERY 5 MINUTES NEEDED FOR CHEST PAIN Start Date: 04/04/25 Status: Ordered Repeat number: 1Start: 05-18-2023 End: 66-02-4732Fsjifpkcuutuw 0.4 mg tablet, sublingual Active 0.4 MG SUBLINGUAL EVERY 5 MINUTES as needed for Chest Pain March 18, 2025 8:14am Complies with drug therapyStart: 78-83-1904Pajtehmtlwyvr 0.4 MG 1 tablet Sublingual as needed Jan, ActiveOxycodone-Ibuprofen (6 sources)Oxycodone-Ibuprofen ActivepredniSONE 20 mg oral tablet (6 sources)Start: 12-07-2024 End: 70-84-3416stqc 1 tablet by mouth twice dailyPrednisone 20 mg tablet Active 20 MG PO Twice daily May 14, 2025 1:31pm Complies with drugtherapy Start: 36-86-3923bhuu 2 tablets by mouth every twenty-four hourspredniSONE 20 MG 2 tablets Orally Once a day for 5 days November, Activerivaroxaban 2.5 mg oral tablet (10 sources)Factor Xa InhibitorStart: 29-55-1549niio 1 tablet by mouth twice dailyrivaroxaban 2.5 mg oral tablet TAKE 1 TABLET BY MOUTH TWICE A DAY Start Date: 04/04/25 Status: Ordered Repeat number: 1Start: 85-44-0120oaru 1 tablet by mouth twice dailyRivaroxaban (Xarelto) 2.5 mg tablet Active 0 .ROUTE .COMPLEX 60 March 04, 2025 8:06am TAKE 1 TABLET BY MOUTH TWICE A DAY Complies with drug therapyStart: 09-16-2023 End: 46-72-5225ahyc 1 tablet by mouth twice dailyRivaroxaban (Xarelto) 2.5 mg tablet Discontinued 2.5 MG PO Twice daily 90 90 September 19, 2024 2:44pm March 04, 2025 8:06amTrelegy Ellipta 100 mcg (11 sources)take 1 puff(s) by inhalation once dailyTrelegy Ellipta 100 mcg 1 puff Inhalation Once a day ActiveTrelegy Ellipta 100 mcg-62.5 mcg-25 mcg inhalation powder (5 sources)Start: 36-95-5975gmcu 1 puff(s) by mouth once dailyTrelegy Ellipta 100 mcg-62.5 mcg-25 mcg inhalation powder INHALE 1 PUFF ONCE DAILY. RINSE MOUTH AFTER USE Start Date: 04/04/25 Status: Ordered Repeat number: 1Start: 04-20-2021 take 1 puff(s) by inhalation once dailyTrelegy Ellipta 100 mcg-62.5 mcg-25 mcg inhalation powder puff(s), Inhalation, Daily, Refills(s) 0 Start Date: 04/20/21 Status: Ordered Repeat number: 1Start: 67-26-7687kgpj 1 puff(s) by inhalation once dailyTrelegy Ellipta 100 mcg-62.5 mcg-25 mcg inhalation powder puff(s), Inhalation, Daily, Refills(s) 0 Start Date: 04/20/21 Status: OrderedvalACYclovir 500 mg oral tablet (3 sources)Herpesvirus Nucleoside Analog DNA Polymerase Inhibitor, Herpes Simplex Virus Nucleoside Analog DNA Polymerase Inhibitor, Herpes Zoster Virus Nucleoside Analog DNA Polymerase InhibitorStart: 21-27-9092nnrg 1 tablet by mouth twice dailyvalacyclovir 500 mg Tab TAKE 1 TABLET BY MOUTH TWICE A DAY DIRECTED Start Date: 04/04/25 Status: Ordered Repeat number: 1Valcyclovir-500 mg 500 mg (4 sources)take 1 tablet by mouth twice dailyValcyclovir-500 mg 500 mg one tab orally twice a day ActiveVentolin HFA 90 mcg/inh Aerosol (4 sources)Start: 30-84-4950suwo 1 puff(s) by inhalation every six hoursVentolin HFA 90 mcg/inh Aerosol puff(s), Inhalation, q6hr, Refill(s) 0 Start Date: 04/20/21 Status: Ordered Repeat number: 1Start: 41-15-5332qymt 1 puff(s) by inhalation every six hoursVentolin HFA 90 mcg/inh Aerosol puff(s), Inhalation, q6hr, Refill(s) 0 Start Date: 04/20/21 Status: Ordered Completed/Discontinued Medications MedicationDrug Class(es)DatesSig (Normalized)Sig (Original)[id number] 200 actuat albuterol 0.09 mg/actuat metered dose inhaler (20 sources)beta2-Adrenergic AgonistStart: 05-13-2021 End: 21-72-9180bmgv 1 puff(s) by inhalation four times daily as needed for wheezingAlbuterol Sulfate (Ventolin Hfa) 90 mcg/actuation HFA aerosol inhaler Discontinued 2 PUFF INHALATION Four times daily as needed for Wheezing 8.5 July 30, 2024 3:58pm September 20, 2024 10:17amtake 1 puff(s) by inhalation every four hours as neededVentolin HFA 108 (90 Base) MCG/ACT 1 puff as needed Inhalation every 4 hrs Activebenzonatate 200 mg oral capsule (3 sources)Non-narcotic AntitussiveStart: 07-30-2024 End: 97-44-4646Omydilguobi 200 mg capsule Discontinued 200 MG PO 2-3 TIMES PER DAY as needed for cough 2023 1:00am September 04, 2024 2:25pm clopidogrel 75 mg oral tablet (5 sources)P2Y12 Platelet InhibitorStart: 09-16-2023 End: 02-24-5336leoo 1 tablet by mouth once dailyClopidogrel (Plavix) 75 mg tablet Discontinued 75 MG PO Daily September 16, 2023 1:00am September 04, 2024 2:28pmlisinopril 10 mg oral tablet (20 sources)Angiotensin Converting Enzyme InhibitorStart: 11-04-2023 End: 36-01-8198Imqnaudoms 10 mg tablet Discontinued 0 .ROUTE .COMPLEX January 11, 2024 1:03pm July 0943:13pm TAKE 1 TABLET DAILYStart: 11-04-2023 End: 16-87-7379Vwqchbtzii 10 mg tablet Discontinued 0 .ROUTE .COMPLEX November 04, 2023 10:00am January 11, 2024 12:03pm TAKE 1 TABLET DAILYStart: 11-04-2023 End: 28-66-5030Idujhaufxi Discontinued 0 .ROUTE .COMPLEX 90 November 04, 2023 11:00am January 11, 2024 1:03pm TAKE 1 TABLET DAILYStart: 04-20-2021 End: 25-46-9208wycv 1 tablet by mouth once dailyLisinopril 10 mg tablet Discontinued 10 MG PO Daily May 13, 2021 12:00am November 04, 2023 11:00am methylPREDNISolone 4 mg oral tablet (4 sources)CorticosteroidStart: 10-20-2023 End: 21-06-6683waew 1 tablet by mouth onceMethylprednisolone (Medrol (Jhonatan)) 4 mg tablets,dose pack Discontinued 0 PO per package directions 19 01October 20, 2023 12:00am May 09, 2024 8:04am PO PER PKG DIRofloxacin 3 mg/ml otic solution (6 sources)Quinolone AntimicrobialStart: 15-67-6911Kitajhtij 0.3 % as directed Ophthalmic every 12 hrs for 5 days Sep, Not-TakingStart: 10-29-2022 Ofloxacin 0.3 % as directed Ophthalmic every 12 hrs for 5 days Sep, Not-Takingprasugrel 10 mg oral tablet (19 sources)P2Y12 Platelet InhibitorStart: 04-20-2021 End: 12-89-4175eycb 1 tablet by mouth once dailyPrasugrel Hcl 10 mg tablet Discontinued 10 MG PO Daily May 13, 2021 12:00am May 18, 2023 8:09am simvastatin 40 mg oral tablet (20 sources)HMG-CoA Reductase InhibitorStart: 04-20-2021 End: 29-64-5519lias 1 tablet by mouth at bedtimeSimvastatin 40 mg tablet Discontinued 40 MG PO Bedtime May 13, 2021 12:00am June 13, 2024 11:23amtamsulosin hydrochloride 0.4 mg oral capsule (20 sources)alpha-Adrenergic BlockerStart: 05-13-2021 End: 89-96-3580mffb 1 capsule by mouth twice dailyTamsulosin (Flomax) 0.4 mg capsule Discontinued 0.4 MG PO Twice daily 60 May 03, 2024 9:19am June 13, 2024 11:23amStart: 74-59-7353odvd 1 capsule by mouth once dailyTamsulosin (Flomax) 0.4 mg Capsule Active 0.4 MG PO Daily May 12, 2021 11:00pm Tamsulosin HCl Activetrifluridine 10 mg/ml ophthalmic solution (5 sources)Nucleoside Analog Antiviral, Nucleoside Metabolic Inhibitortake 1 drop(s) into the eye(s) every four hoursTrifluridine 1 % 1 drop into affected eye while awake Ophthalmic every 4 hrs Not-Taking Problems Active Problems Problem ClassificationProblemDateDocumented DateEpisodic/ChronicAcute myocardial infarction (4 sources)Myocardial syitnpmnta31-78-1953UdbblwbFlvfsj and peripheral arterial embolism or thrombosis (1 source)Embolism and thrombosis of iliac arteryChronicChronic obstructive pulmonary disease and bronchiectasis (20 sources)Chronic obstructive lung disease; Translations: [Pulmonary emphysema]36-73-8471OrhgzahPhkzygi on above:Problem List clean-up per request of Phys. EHR CmteChronic obstructive pulmonary disease and bronchiectasis (6 sources)Bronchitis, not specified as acute or chronic; Translations: [Bronchitis]EpisodicComplications of surgical procedures or medical care (7 sources)Respiratory failure; Translations: [Acute postprocedural respiratory failure]Onset: 118692-81-6296KraclqatZygygvog atherosclerosis and other heart disease (6 sources)Atherosclerotic heart disease of [place] coronary artery without angina pectoris; Translations: [[place] W/O ANGINA PECTORIS]Onset: 96-41-0275EwoqtdpEpctxyoi atherosclerosis and other heart disease (2 sources)Presence of coronary angioplasty implant and graft; Translations: [Presence of coronary angioplastyimplant and graft]Onset: 69-57-6742Xpvmfxnr Coronary atherosclerosis and other heart disease (1 source)Coronary atherosclerosis and other heart disease; Translations: [Atherosclerosis of [place] arteriesof extremities with intermittent claudication, bilateral legs]Onset: 33-04-6173Vxpjucqtq of lipid metabolism (6 sources)Hypercholesterolemia; Translations: [Mixed hyperlipidemia]Onset: 450698-71-9095QsolwrxFuvactolu hypertension (5 sources)Benign essential hypertension; Translations: [Essential (primary) hypertension]Onset: 669831-67-0764RrfjyskIotumsegaltzv symptoms and ill- defined conditions (16 sources)Incomplete emptying of bladder; Translations: [Increased frequency of urination]24-98-9225MktqylugNdzpqzdu (4 sources)Rujtpjqj65-64-5629DqiqxjpCilleyoiezf of prostate (11 sources)Benign prostatic hypertrophy with outflow obstruction; Translations: [Benign prostatic hyperplasia with lower urinary tract symptoms]Onset: 107384-72-9171MvwcpbuQzrwcomzcpeg conditions of male genital organs (7 sources)Prostatitis; Translations: [Inflammatory disease of prostate, unspecified]Onset: 559871-75-7337BjinpkgwErdwzdbynosynj (4 sources)Udmoxngwm82-13-2567SwfezdsVotfx circulatory disease (5 sources)Peripheral arterial occlusive disease; Translations: [Disorder of arteries and arterioles, unspecified]39-26-7066MvdbpufGiola circulatory disease (4 sources)Disorder of arteries and arterioles, unspecified; Translations: [Arterial embolism and thrombosis of lower extremity]Onset: 723070-43-1066 ChronicOther circulatory disease (1 source)Other specified symptoms and signs involving the circulatory and respiratory systemsEpisodicOther lower respiratory disease (3 sources)Shortness of breath; Translations: [SHORTNESS OF BREATH]Onset: 37-19-8511GdcsyjrcBrgac screening for suspected conditions (not mental disorders or infectious disease) (4 sources)Patient encounter status; Translations: [Encounter for screening for malignant neoplasm of prostate]Onset: 622752-69-9437XxaiogegBrnvydzeta and visceral atherosclerosis (20 sources)Peripheral vascular disease; Translations: [Peripheral vascular disease, unspecified]Onset: 05-11-2021 Resolved: 33-09-0367IgffxeeIbkixcsc codes; unclassified (1 source)Other specified postprocedural statesEpisodicScreening and history of mental health and substance abuse codes (5 sources)Ex-smoker; Translations: [Personal history of nicotine dependence] 00-52-0209HuzemlfmAshjlveyp-related disorders (20 sources)Smoker; Translations: [Nicotine dependence, unspecified, uncomplicated]Onset: 05-11-2021 Resolved: 229798-88-7557AnlqvjkQvixwsm on above:Added secondary to documentation in Social History.Unclassified (4 sources)Finding of sensation of wusumuq57-14-4100Gtbcagwksrpc (1 source)J44.0 - Chronic obstructive pulmonary disease with (acute) lower respiratory infection,J20.9 - Acute bronchitis, unspecified Past or Other Problems Problem ClassificationProblemDateDocumented DateEpisodic/ChronicOther lower respiratory disease (4 sources)Other nonspecific abnormal finding of lung field; Translations: [OTH NONSPECIFIC ABN FIND LNG FIELD]Onset: 30-72-2701Ismzowgc Results Test NameValueInterpretationReference RangeFacilityAmbulatory Visit Summaryon [id number] Visit SummaryAmbulatory Visit Summary PAWAN BUSTILLO :1955 Visit Date:04/04/2025 Ambulatory Visit Instructions Your Diagnosis BPH with urinary obstruction Prostate cancer screening Your Care Team Attending Physician - XAVI Small APRN, Lorin Haines Primary Care Physician - KEATON RICO MD This Is Your Medications List aspirin (aspirin 81 mg oral capsule) ezetimibe (ezetimibe 10 mg Tab) fluticasone/umeclidinium/vilanterol (Trelegy Ellipta 100 mcg-62.5 mcg-25 mcg inhalation powder) furosemide (furosemide 20 mg Tab) nitroglycerin (nitroglycerin 0.4 mg sublingual Tab) rivaroxaban (rivaroxaban 2.5 mg oral tablet) valacyclovir (valacyclovir 500 mg Tab) Contact prescribing physician if questions or concerns albuterol (Ventolin HFA 90 mcg/inh Aerosol) aspirin (aspirin 81 mg oral capsule) erythromycin ophthalmic (erythromycin ophthalmic 0.5% ointment) fluticasone/umeclidinium/vilanterol (Trelegy Ellipta 100 mcg-62.5 mcg-25 mcg inhalation powder) gatifloxacin ophthalmic (gatifloxacin 0.5% ophthalmic solution) lisinopril (lisinopril 10 mg Tab) prasugrel (prasugrel 10 mg Tab) simvastatin (simvastatin 40 mg Tab) tamsulosin (Flomax 0.4 mg Cap) Procedures Performed MULTISECTION TRANSTHORACIC:FIND:PT:CHEST>HEART:DOC:US (03/21/2025), Cystoscopy (01/19/2022), Urodynamics (01/19/2022), Hernia. Discharge Vitals Heart Rate (Peripheral) 79 Blood Pressure 120/69 Height 180 cm Height 71 in Weight 88.5 kg Weight 195.109 lb BMI 27.31 What to do next Scheduled Follow-Up Appointments 2024 8:00 AM EST With: XAVI Small APRN, Lorin Haines Where: [facility] [address] [address]- Medications What How Much When Instructions Unchanged aspirin (aspirin 81 mg oral capsule) By Mouth Every 24 hours Unchanged ezetimibe (ezetimibe 10 mg Tab) TAKE 1 TABLET BY MOUTH EVERY DAY IN THE MORNING Unchanged fluticasone/ umeclidinium/ vilanterol (Trelegy Ellipta 100 mcg-62.5 mcg-25 mcg inhalationpowder) INHALE 1 PUFF ONCE DAILY. RINSE MOUTH AFTER USE Unchanged furosemide (furosemide 20 mg Tab) 1 Tablets By Mouth Every day Unchanged nitroglycerin (nitroglycerin 0.4 mg sublingual Tab) TAKE 1 TABLET SUBLINGUALLY EVERY 5 MINUTES NEEDED FOR CHEST PAIN Unchanged rivaroxaban (rivaroxaban 2.5 mg oral tablet) TAKE 1 TABLET BY MOUTH TWICE A DAY Unchanged valacyclovir (valacyclovir 500 mg Tab) TAKE 1 TABLET BY MOUTH TWICE A DAY DIRECTED Unchanged albuterol (Ventolin HFA 90 mcg/ inh Aerosol) Inhalation Every 6 hours Contact prescribingphysician if questions or concerns Unchanged aspirin (aspirin 81 mg oral capsule) By Mouth Every 4 hours Contact prescribing physicianif questions or concerns Unchanged erythromycin ophthalmic (erythromycin ophthalmic 0.5% ointment) 0.5 Inch Both eyes 4 times a day Contact prescribing physician if questions or concerns Unchanged fluticasone/ umeclidinium/ vilanterol (Trelegy Ellipta 100 mcg-62.5 mcg-25 mcg inhalationpowder) Inhalation Every day Contact prescribing physician if [...] prescribing physician if questions or concerns Unchanged tamsulosin (Flomax 0.4 mg Cap) 1 Capsules By Mouth 2 times a day Contact prescribing physician if questions or concerns Allergies No Known Medication Allergies Problems Ongoing - Any problem that you are currently receiving treatment for. Arthritis BPH with urinary obstruction COPD (chronic obstructive pulmonary disease) Emphysema of lung Feeling of incomplete bladder emptying Glaucoma Heart attack High cholesterol Incomplete bladder emptying Poor urinary stream Prostatitis Smoker Urgency of urination Urinary frequency Patient Survey You may receive a survey via text or e-mail asking about your office visit. Please share your experience with us by completing your survey. We appreciate your feedback and thank you for choosing us for your care. Patient Portal You may access all of your results and other medical record information on our secure patient portal. If you are not signed up for this yet, please contact [facility] at [phone] to get signed up today. Language Information Language assistance services are available as needed. [facility]/Cl[facility] Noteon [id number] Office/Clinic NoteUrology Office/Clinic Note Chief Complaint weak stream HPI Staff Pt is a 69 year old male here for weak stream and urgency Pt last office visit was on 04/19/22 with Dr. Cagle Previous DX: BPH with urinary obstruction, prostatitis PSA: 06/16/22 - 1.47 Patient gross hematuria. Denies any flank pain. Patient has some dysuria and abdominal pain, no other symptoms, 3 days ago alot of pain but was drinking alot, today he has had a full stream and has been emptying, in the night stop and go History of Present Illness I have reviewed and verified the staff HPI to be accurate for this encounter. Portions of this record may have been created with voice recognition artificial intelligence software, specifically [employer], [employer] and or [employer]. Substitutions may have occurred due to the inherent limitations of voice recognition and artificial intelligence software. Review of Systems PHQ Score Initial Depression Screen Score: 0 SCORE Physical Exam Vitals & Measurements HR: 79(Peripheral) BP: 120/69 HT: 180 cm HT: 71 in WT: 195.109 lb WT: 88.5 kg BMI: 27.31 General: Well developed, well nourished, in no acute distress. Assessment/Plan PRW pt, last OV 04/19/22 1. Prostatitis (N41.9: Inflammatory disease of prostate, unspecified) c/o worsening stream, urgency over the last week to week and a half No specimen for UA today Random Bladder Scan 68 ml pt does admit to mild improvement since started diuretic, but still notices sxs are acutely worse hx of prostatitis, similar sxs -doxycycline x 2 weeks, SE discussed. If sxs continue at completion of course, can contact office and will sent additional 2 week course -f/u 2 mos w/ PSA 2. BPH with urinary obstruction (N40.1: Benign prostatic hyperplasia with lower urinary tract symptoms) s/p cysto 01/19/22 - unobstructed prostatic urethra. Short w/ bilobar hypertrophy and very friable.Mild (1) trabeculation. s/p urodynamics 01/19/22 - high PVR, low average flow rate, low bladder pressure. Per Uro progress note by PRW at that time, was to f/u in 3 mos w/ PVR w/ plan to start CIC QD if PVR > 300. Pt did not follow up. IPSS 16, QoL 4 bladder scan low Pt notes that he typically is very satisfied w/ his urinary sxs. Likely acutely worsened d/t infection. He is taking tamsulosin 0.4 mg BID, which PCP has taken over rx of. Rec continue medication. Ifworsening stream sxs continue, rec reeval of urinary channel w/ cysto. -cont tamsulosin Ordered: Urnls Dip Stick Auto w/o Microscopy POC 17297 3. Prostate cancer screening (Z12.5: Encounter for screening for malignant neoplasm of prostate) PSA: 11/11/15 - 0.61 09/30/20 - 1.41 04/20/21 - 1.30 06/16/22 - 1.47 No recent PSA. Pt provided w/ PSA order today. Knows not to complete for at least 1 month given poss infection Ordered: PSA Screen, Total Orders: doxycycline, 100 mg = 1 cap(s), Oral, BID, may substitute hyclate for monohydrate based on availability, X 14 day(s), # 28 cap(s), Refills(s) 0, Pharmacy: [facility]/pharmacy #[id number], 180, cm, 04/04/25 15:44:00 EDT, Height/Length Dosing, 88.5, kg, 04/04/25 15:44:00 EDT, We... Follow-up With When Contact Information XAVI Small APRN, Lorin Haines, [place], URL Additional Instructions: 2 mos w/ PSA Patient Education Prostatitis Benign Prostatic Hyperplasia Problem List/Past Medical History Ongoing Arthritis BPH with urinary obstruction COPD (chronic obstructive pulmonary disease) Emphysema of lung Feeling of incomplete bladder emptying Glaucoma Heart attack High cholesterol Incomplete bladder emptying Poor urinary stream Prostatitis Smoker Urgency of urination Urinary frequency Historical No qualifying data Procedure/Surgical History MULTISECTION TRANSTHORACIC:FIND:PT:CHEST>HEART:DOC:US (03/21/2025), Cystoscopy (01/19/2022), Urodynamics (01/19/2022), Hernia. Medications aspirin 81 mg oral capsule, Oral, q4hr aspirin 81 mg oral capsule, Oral, q24hr doxycycline hyclate 100 mg Cap, 100 mg= 1 cap(s), Oral, BID erythromycin ophthalmic 0.5% ointment, 0.5 in, Eye-Both, QID ezetimibe 10 mg Tab Flomax 0.4 mg Cap, 0.4 mg= 1 cap(s), Oral, BID, 3 refills furosemide 20 mg Tab, 20 mg= 1 tab(s), Oral, Daily gatifloxacin 0.5% ophthalmic solution, BID lisinopril 10 mg Tab, Oral, Daily nitroglycerin 0.4 mg sublingual Tab prasugrel 10 mg Tab, 10 mg= 1 tab(s), Oral, Daily rivaroxaban 2.5 mg oral tablet simvastatin 40 mg Tab, Oral, Once a day (at bedtime) Trelegy Ellipta 100 mcg-62.5 mcg-25 mcg inhalation powder, Inhalation, Daily Trelegy Ellipta 100 mcg-62.5 mcg-25 mcg inhalation powder valacyclovir 500 mg Tab Ventolin HFA 90 mcg/inh Aerosol, Inhalation, q6hr Allergies No Known Medication Allergies Social History Tobacco Former smoker, quit more than 30 days ago Tobacco Use:. Cigarettes, Yes, 04/04/2025 Family History Arthritis: Mother and Father. Diabetes clinic: Father. Heart diseas (more content not included)...[facility] Comment on above:Result Comment: Electronically Signed By: Orzech DISTRIBUTOR CLEANER, RN HEMODIALYSIS-C, Lorin X\.morelia\Date and Time Signed: 04/04/25 16:13 TPI91ed [id number] echo result from 03/21/2025: Leonora Cardona MD to Me 03/27/25 9:50 AM Please tell him the echo indicates some fluid retention and I want him to try taking lasix 20 mg daily and see me in 3 months (dx pulmonary hypertension). BMP in 1 month. Spoke with patient and made him aware. He will start lasix and have labs in 1 month. RX sent into [facility] and lab order mailed to him with apt reminded for Nov with Dr. Cardona. Patient verbalized understanding.[facility] HospitalOrders Onlyon 08-51-7959Lirtnx [id number] Pawan Bustillo 1955 M Date Provider Department Center 03/21/2025 [id number], HISTORICAL [facility]OCELYNE [facility] Family History Problem Relation Age of Onset Coronary artery disease Mother Coronary artery disease Sister Coronary artery disease Brother Family Status - Relation Status Age at Mother Father Sister BrotherNormalUniMercy Health St. Anne HospitalOffice Visiton [id number]- up [id number] Pawan Bustillo 1955 M Date Provider Department Center 03/11/2025 367-LEONORA CARDONA JOCELY[facility] Family History Problem Relation Age of Onset Coronary artery disease Mother Coronary artery disease Sister Coronary artery disease Brother Family Status - Relation Status Age at Mother Father Sister Brother Level of Service:71651 [place] OFFICE/OUTPATIENT ESTABLISHED MOD [facility] 89-36-9811Guxbvq-up visit [id number] Pawan Bustillo 1955 M Date Provider Department Center 09/18/2024 3848-ARAVIND JOSÉ JOCELYNE [facility] Family History Problem Relation Age of Onset Coronary artery disease Mother Coronary artery disease Sister Coronary artery disease Brother Family Status - Relation Status Age at Mother Sister Brother Level of Service:96720 [place] OFFICE/OUTPATIENT ESTABLISHED LOW MDM 20 [facility] CenterUS ankle/arm indiceson 28-07-0360FY ankle/arm indicesMercy Health Tiffin Hospital [facility] [address] [place] [address] Ultrasound Report Signed Patient: Pawan Bustillo MR#: [id number] 3 : 1955 Acct:[id number] Age/Sex: 68 / M ADM Date: 09/04/24 Loc: [facility] Room: Type: [facility] CLI Attending Dr: Tom Schroeder MD Ordering Provider: Tom Schroeder MD Date of Service: 09/04/24 US/US ankle/arm indices: 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 Copies to: Tom Schroeder [...] Tom Schroeder M.D.09/04/2024 1:31 PM Dictation Location: [place] [address] Tech: Irma Jimenez Transcribed By: NOÉ 09/04/24 133 Dictated By: Tom Schroeder MD 09/04/24 133 Signed By: 09/04/24 [facility]ia HealthUS ankle/arm indiceson 84-62-7289QA ankle/arm indicesMercy Health Tiffin Hospital Vascular [address] [place] [address] Ultrasound Report Signed Patient: Pawan Bustillo MR#: [id number] 3 : 1955 Acct:[id number] Age/Sex: 68 / M ADM Date: 01/17/24 Loc: [facility] Room: Type: REG CLI Attending Dr: Tom Schroeder MD Ordering Provider: Tom Schroeder MD Date of Service: 01/17/24 US/US ankle/arm indices: 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 Copies to: Tom Schroeder [...] Tom Schroeder M.D.01/17/2024 1:08 PM Dictation Location: [place] [address] Tech: Maki Jauregui Transcribed By: NOÉ 01/17/24 1308 Dictated By: Tom Schroeder MD 01/17/24 1308 Signed By: 01/17/24 1308[facility] Physician GroupXR chest 1V portableon 22-64-0074AU chest 1V portableSELECT [facility]ICAL [facility] [place] [address] XRay Report Signed Patient: Pawan Bustillo MR#: [id number] 3 : 1955 Acct:[id number] Age/Sex: 67 / M ADM Date: 09/14/23 Loc: Room: 4Z6644-7 Type: ADM IN Attending Dr: Tom Schroeder [...] Sonal Kebede M.D.09/17/2023 10:16 AM Dictation Location: [place] [address] Transcribed By: [facility] 09/17/23 1016 Dictated By: Sonal Kebede MD 09/17/23 1013 Signed By: 09/17/23 1016[facility] Physician GroupActivated Clotting Timeon 69-42-7270Nyuabwdvp Clotting Time SIL604 yXxhzfh04-728Ceh [facility] Physician GroupComment on above:Result Comment: Reference Range: 90-139 (Non-heparinized) PERFORMED BY: [place] [address] PATHOLOGIST GAS REFRIGERATOR SERVICER JOLIE MASON M.D.Performed By: #### CBC, FIB-C, PP #### [place] [address] USAActivated partial thromboplastin time (aPTT) in platelet poor plasma by coagulation aOrdered By: Tom Schroeder on 55-75-8105sHDG Coag (PPP) [Time]32.2 s25.1-36.5FUniversity Hospitals Parma Medical CenterComment on above:A hematocrit value greater than 55% may lead to inaccurate results in coagulation testing. Patientshaving hematocrit values >55% require a special collection tube for coagulation studies. Please contact the laboratory at [phone] for redraw instructions.Automated basophil %Ordered By: Tom Schroeder on 04-25-2503Tuqizsfqp/100 WBC (Bld)0.7 %Normal.[facility] Comment on above:Order Comment: Comment Every 6 hour while on tPAPerformed By: #### PP, FIB-C, CBC ####[place] [address] USAAutomated basophil countOrdered By: Tom Schroeder on 09-16-2023 Basophils (Bld) [#/Vol]0.1 10*3/uLNormal0.0-0.2FUniversity Hospitals Parma Medical Center Comment on above:Order Comment: Comment Every 6 hour while on tPAResult Comment: PERFORMED BY: [facility] [address]ecilioFrannie [place] [id number] PATHOLOGIST GAS REFRIGERATOR SERVICER JOLIE MASON M.D.Performed By: #### PP, FIB-C, CBC ####[place] [address] USAAutomated blood monocyte countOrdered By: Tom Schroeder on 40-73-8470Cthwmajrw (Bld) [#/Vol]0.5 10*3/uLNormal 0.0-0.8[facility] SystemComment on above:Order Comment: Comment Every 6 hour while on tPAPerformed By: #### PP, FIB-C, CBC ####[place] [address] USAAutomated eosinophil %Ordered By: Tom Schroeder on 47-08-1850Vjvdvweodcp/100 WBC (Bld)0.8 %Normal. [facility] SystemComment on above:Order Comment: Comment Every 6 hour while on tPAPerformed By: #### PP, FIB-C, CBC ####[place] [address] USAAutomated eosinophil count Ordered By: Tom Schroeder on 27-07-0828Zahtjmpyvdx (Bld) [#/Vol]0.1 10*3/uL Normal0.0-0.45[facility] SystemComment on above:Order Comment: Comment Every 6 hour while on tPAPerformed By: #### PP, FIB-C, CBC ####[place] [address] USAAutomated monocyte % Ordered By: Tom Schroeder on 40-51-9105Lutuqugxb/100 WBC (Bld)6.6 %Normal. [facility] SystemComment on above:Order Comment: Comment Every 6 hour while on tPAPerformed By: #### PP, FIB-C, CBC ####[place] [address] [place] [address] USAAutomated neutrophil %Ordered By: Tom Schroeder on 09-19-7530Vidnqflvtzu/100 WBC (Bld)82.4 %Normal.[facility] SystemComment on above:Order Comment: Comment Every 6 hour while on tPAPerformed By: #### PP, FIB-C, CBC ####[address] [address] USABlood activated clotting time by coagulation assayOrdered By: Tom Schroeder on 42-19-6264PGP Coag (Bld)131 s 90-139Av[facility] Health SystemComment on above:Reference Range: 90-139 (Non-heparinized)Coagulation Profileon 55-65-4825cGEH Coag (Bld) [Time]32.2 s Lscidq08.1-36.5The [facility] Physician GroupComment on above:Order Comment: Comment Every 6 hours while on tPAResult Comment: A hematocrit value greater than 55% may lead to inaccurate results in coagulation testing. Patients having hematocrit values >55% require a special collection tube for coagulation studies. Please contact the laboratory at [phone] for redraw instructions.Performed By: #### PP, FIB-C, CBC ####[place] [address] [place] [address] USAComplete Blood Count Auto Diffon 47-03-2907Aert Corpuscular HGB Conc34.2 g/vTPzzzzt21.5-35.6The [facility] Physician GroupComment on above:Order Comment: Comment Every 6 hour while on tPA Performed By: #### PP, FIB-C, CBC ####[address] [address] USANRBC%0.1 /100{WBC}Normal0-0.5The [facility] Cancer CenterComment on above:Order Comment: Comment Every 6 hour while on tPAPerformed By: #### PP, FIB-C, CBC ####[address] [address] USAErythrocyte distribution width [Ratio] by Automated countOrdered By: Tom Schroeder on 44-69-7965Xxdpxczwicz distribution width (RBC) [Ratio]14.2 %Keucio53.0-14.8[facility] SystemComment on above:Order Comment: Comment Every 6 hour while on tPAPerformed By: #### PP, FIB-C, CBC ####[address] [address] USAErythrocytes [#/volume] in Blood by Automated countOrdered By: Tom Schroeder on 92-06-5265INZ (Bld) [#/Vol]4.20 10*6/uLNormal3.90-5.60[facility] SystemComment on above:Order Comment: Comment Every 6 hour while on tPAPerformed By: #### PP, FIB-C, CBC ####[address] [address] USAFibrinogenon 30-73-4813Unrxgrnzza921 mg/hTFic030-452Eoc [facility] Cancer CenterComment on above:Order Comment: Comment Every 6 hours while on tPAResult Comment: A hematocrit value greater than 55% may lead to inaccurate results in coagulation testing. Patients having hematocrit values >55% require a special collection tube for coagulation studies. Please contact the laboratory at [phone] for redraw instructions. PERFORMED BY: [facility] [address] [place] [address] PATHOLOGIST GAS REFRIGERATOR SERVICER JOLIE MASON M.D.Performed By: #### PP, FIB-C, CBC ####[place] [address] [place] [address] USAFibrinogen [Mass/volume] in Platelet poor plasma by Coagulation assayOrdered By: Tom Schroeder on 09-16-2023 Fibrinogen Coag (PPP) [Mass/Vol]191 mg/dN228-038WzrpghalyAvita Health SystemComment on above:A hematocrit value greater than 55% may lead to inaccurate results in coagulation testing. Patientshaving hematocrit values >55% require a special collection tube for coagulation studies. Please contact the laboratory at [phone] for redraw instructions.Hematocrit [Volume Fraction] of Blood by Automated countOrdered By: Tom Schroeder on 81-58-7812Echdeuifss (Bld) [Volume fraction]41.9 %Lpkdkb66.8-50.0[facility] Comment on above:Order Comment: Comment Every 6 hour while on tPAPerformed By: #### PP, FIB-C, CBC ####[facility] [address] [place] [address] USAHemoglobin [Mass/volume] in BloodOrdered By: Tom Schroeder on 02-15-0614Khyxaqzfsw (Bld) [Mass/Vol]14.3 g/eZUqsiuz47.0-17.0[facility] SystemComment on above:Order Comment: Comment Every 6 hour while on tPA Performed By: #### PP, FIB-C, CBC ####[facility] [address] [place] [address] USAINR in Platelet poor plasma by Coagulation assay Ordered By: Tom Schroeder on 93-28-8907BGK Coag (PPP) [Relative time]1.2 {INR} NormalAvita Health SystemComment on above:INR Therapeutic Range A) Pre- and Peroperative OAT started two weeks before surgery. NOT HIP SURGERY: 1.5 - 2.5 HIP SURGERY: 2 - 3B) Primary and secondary prevention of venous THROMBOSIS: 2 - 3C) Active venous thrombosis, pulmonary embolismand prevention of recurrent venous thrombosis: 2 - 3D) Prevention of arterial thromboembolismincluding patients with mechanical heart valves: 3 - 4.5Order Comment: Comment Every 6 hours while on tPAResult Comment: INR Therapeutic Range A) Pre- and [...] patients with mechanical heart valves: 3 - 4.5Performed By: #### PP, FIB-C, CBC ####[address] [address] USALeukocytes [#/volume] corrected for nucleated erythrocytes in Blood by Automated counOrdered By: Tom Schroeder on 96-77-2231FOI corrected for nucl RBC Auto (Bld) [#/Vol]7.6 10*3/uL4.1-10.5FUniversity Hospitals Parma Medical Center Leukocytes [#/volume] in Blood by Automated countOrdered By: Tom Schroeder on 98-17-3587ZEQ (Bld) [#/Vol]7.6 10*3/uLNormal4.1-10.5FUniversity Hospitals Parma Medical CenterComment on above:Order Comment: Comment Every 6 hour while on tPAPerformed By: #### PP, FIB-C, CBC ####[address] [address] USALymphocytes [#/volume] in Blood by Automated count Ordered By: Tom Schroeder on 23-60-0398Aulzkugszhf (Bld) [#/Vol]0.7 10*3/uLLow 1.00-4.8[facility] SystemComment on above:Order Comment: Comment Every 6 hour while on tPAPerformed By: #### PP, FIB-C, CBC ####[address] [address] USALymphocytes/100 leukocytes in Blood by Automated countOrdered By: Tom Schroeder on 09-16-2023 Lymphocytes/100 WBC (Bld)9.5 %Normal.[facility] SystemComment on above:Order Comment: Comment Every 6 hour while on tPAPerformed By: #### PP, FIB-C, CBC ####[address] [address] USAMCH [Entitic mass] by Automated countOrdered By: Tom Schroeder on 17-98-6328TOF (RBC) [Entitic mass]34.1 nuGgtyrd82.5-35.2FUniversity Hospitals Parma Medical CenterComment on above:Order Comment: Comment Every 6 hour while on tPA Performed By: #### PP, FIB-C, CBC ####[place] [address] [place] [address] [facility]ILINGHC Auto (RBC) [Mass/Vol]Ordered By: Tom Schroeder on 21-86-2491DUDI (RBC) [Mass/Vol]34.2 g/dL32.5-35.6FUniversity Hospitals Parma Medical CenterMCV [Entitic volume] by Automated countOrdered By: Tom Schroeder on 11-89-3247NJR (RBC) [Entitic vol]99.7 zAQgxkvc64.5-101[facility] SystemComment on above:Order Comment: Comment Every 6 hour while on tPA Performed By: #### PP, FIB-C, CBC ####[address] [address] USANeutrophils [#/volume] in Blood by Automated count Ordered By: Tom Schroeder on 95-69-1854Poabufkyyni (Bld) [#/Vol]6.3 10*3/uL Normal1.8-7.7FUniversity Hospitals Parma Medical CenterComment on above:Order Comment: Comment Every 6 hour while on tPAPerformed By: #### PP, FIB-C, CBC ####[address] [address] USANucleated erythrocytes [Presence] in Blood by Automated countOrdered By: Tom Schroeder on 50-93-5524Omqdbvjln RBC Auto Ql (Bld)0.1 /100{WBC}0-0.5FUniversity Hospitals Parma Medical CenterPlatelet mean volume [Entitic volume] in Blood by Automated count Ordered By: Tom Schroeder on 20-64-7600Jysenevq mean volume (Bld) [Entitic vol]7.7 fLNormal6.6-10.1FUniversity Hospitals Parma Medical CenterComment on above:Order Comment: Comment Every 6 hour while on tPAPerformed By: #### PP, FIB-C, CBC ####[address] [address] [place] Platelets [#/volume] in Blood by Automated countOrdered By: Tom Schroeder on 43-96-0271Qdozeoqtv (Bld) [#/Vol]121 10*3/oVYkx427-876TpfsvibppAvita Health SystemComment on above:Order Comment: Comment Every 6 hour while on tPA Performed By: #### PP, FIB-C, CBC ####[address] [address] USAProthrombin time (PT)Ordered By: Tom Schroeder on 62-78-2554EC Coag (PPP) [Time]13.7 sHigh9.0-12.9[facility] SystemComment on above:A hematocrit value greater than 55% may lead to inaccurate results in coagulation testing. Patientshaving hematocrit values >55% require a special collection tube for coagulation studies. Please contact the laboratory at [phone] for redraw instructions.Order Comment: Comment Every 6 hours while on tPAResult Comment: A hematocrit value greater than 55% may lead to inaccurate results in coagulation testing. Patients having hematocrit values >55% require a special collection tube for coagulation studies. Please contact the laboratory at [phone] for redraw instructions.Performed By: #### PP, FIB-C, CBC ####[address] [address] USABasic Metabolic Panelon 09-15-2023 Creatinine Clr Calc Anoaudew12.43NormalThe [facility] Physician GroupComment on above:Result Comment: PERFORMED BY: [facility] [address] [place] [address] PATHOLOGIST GAS REFRIGERATOR SERVICER JOLIE MASON M.D.Performed By: #### BMP ####[address] [address] USAGFR/1.73 sq M.predicted MDRD (S/P/Bld) [Vol rate/Area]mL/min/{1.73_m2}NormalThe [facility] Physician [facility] SystemComment on above: Performed By: #### BMP ####[address] [address] USACalcium [Mass/volume] in Serum or PlasmaOrdered By: Niko Del Angel on 39-05-4537Lxdvlkh [Mass/Vol]8.3 mg/dLLow8.6-10.3FUniversity Hospitals Parma Medical CenterComment on above:Performed By: #### BMP ####[facility] [place] [address] USACarbon dioxide, total [Moles/volume] in Serum or PlasmaOrdered By: Niko Del Angel on 87-44-3855VL1 [Moles/Vol]29.9 mmol/YNqtgts92.0-31.0[facility] SystemComment on above:Performed By: #### BMP ####[facility] [place] [address] USAChloride [Moles/volume] in Serum or PlasmaOrdered By: Niko Del Angel on 91-94-3692Bgwrfzog [Moles/Vol]106 mmol/VLmcwrq36-920 [facility] SystemComment on above:Performed By: #### BMP ####[facility] [place] [address] [facility] Coagulation Profileon 65-14-9718bICO Coag (Bld) [Time]23.4 sLow25.1-36.5The [facility] Physician GroupComment on above:Order Comment: Comment Every 6 hours while on tPAResult Comment: A hematocrit value greater than 55% may lead to inaccurate results in coagulation testing. Patients having hematocrit values >55% require a special collection tube for coagulation studies. Please contact the laboratory at [phone] for redraw instructions.Performed By: #### CBC, FIB-C, PP #### [facility] [address] [place] [address] USAINR Coag (PPP) [Relative time]1.1 {INR}NormalThe [facility] Physician GroupComment on above:Order Comment: Comment Every 6 hours while on tPAResult Comment: INR Therapeutic Range A) Pre- and [...] patients with mechanical heart valves: 3 - 4.5Performed By: #### CBC, FIB-C, PP #### [facility] [address] [place] [address] USAPT Coag (PPP) [Time]12.9 sNormal9.0-12.9The [facility] Physician GroupComment on above:Order Comment: Comment Every 6 hours while on tPAResult Comment: A hematocrit value greater than 55% may lead to inaccurate results in coagulation testing. Patients having hematocrit values >55% require a special collection tube for coagulation studies. Please contact the laboratory at [phone] for redraw instructions.Performed By: #### CBC, FIB-C, PP #### [address] [address] USAaPTT Coag (Bld) [Time]126.7 sOff scale high25.1-36.5The [facility] Physician GroupComment on above:Order Comment: Comment Every 6 hours while on tPAResult Comment: A hematocrit value greater than 55% may lead to inaccurate results in coagulation testing. Patients having hematocrit values >55% require a special collection tube for coagulation studies. Please contact the laboratory at [phone] for redraw instructions.Performed By: #### CBC, PP, FIB-C #### [address] [address] USAINR Coag (PPP) [Relative time]1.2 {INR}NormalThe [facility] Physician GroupComment on above:Order Comment: Comment Every 6 hours while on tPAResult Comment: INR Therapeutic Range A) Pre- and [...] patients with mechanical heart valves: 3 - 4.5Performed By: #### CBC, PP, FIB-C #### [address] [address] USAPT Coag (PPP) [Time]13.3 sHigh9.0-12.9The [facility] Physician GroupComment on above:Order Comment: Comment Every 6 hours while on tPAResult Comment: Critical value result called at 1601 on 09/15/23 A hematocrit value greater than 55% may lead to inaccurate results in coagulation testing. Patients having hematocrit values >55% require a special collection tube for coagulation studies. Please contact the laboratory at [phone] for redraw instructions.Performed By: #### CBC, PP, FIB-C #### [facility] [address] [place] [address] USAaPTT Coag (Bld) [Time]32.6 rHdkinp95.1-36.5The [facility] Physician GroupComment on above:Order Comment: Comment Every 6 hours while on tPAResult Comment: A hematocrit value greater than 55% may lead to inaccurate results in coagulation testing. Patients having hematocrit values >55% require a special collection tube for coagulation studies. Please contact the laboratory at [phone] for redraw instructions.Performed By: #### CBC, FIB-C, PP #### [facility] [address] [place] [address] USAINR Coag (PPP) [Relative time]1.1 {INR}NormalThe [facility] Physician GroupComment on above:Order Comment: Comment Every 6 hours while on tPAResult Comment: INR Therapeutic Range A) Pre- and [...] patients with mechanical heart valves: 3 - 4.5Performed By: #### CBC, FIB-C, PP #### [facility] [address] [place] [address] USAPT Coag (PPP) [Time]13.1 sHigh9.0-12.9The [facility] Physician GroupComment on above:Order Comment: Comment Every 6 hours while on tPAResult Comment: A hematocrit value greater than 55% may lead to inaccurate results in coagulation testing. Patients having hematocrit values >55% require a special collection tube for coagulation studies. Please contact the laboratory at [phone] for redraw instructions.Performed By: #### CBC, FIB-C, PP #### [facility] [address] [place] [address] USAaPTT Coag (Bld) [Time]35.4 uKfknqx90.1-36.5The [facility] Physician GroupComment on above:Order Comment: Comment Every 6 hours while on tPAResult Comment: A hematocrit value greater than 55% may lead to inaccurate results in coagulation testing. Patients having hematocrit values >55% require a special collection tube for coagulation studies. Please contact the laboratory at [phone] for redraw instructions.Performed By: #### CBC, FIB-C, PP #### [facility] [address] [place] [address] USAINR Coag (PPP) [Relative time]1.1 {INR}NormalThe [facility] Physician GroupComment on above:Order Comment: Comment Every 6 hours while on tPAResult Comment: INR Therapeutic Range A) Pre- and [...] patients with mechanical heart valves: 3 - 4.5Performed By: #### CBC, FIB-C, PP #### [facility] [address] [place] [address] USAPT Coag (PPP) [Time]12.3 sNormal9.0-12.9The [facility] Physician GroupComment on above:Order Comment: Comment Every 6 hours while on tPAResult Comment: A hematocrit value greater than 55% may lead to inaccurate results in coagulation testing. Patients having hematocrit values >55% require a special collection tube for coagulation studies. Please contact the laboratory at [phone] for redraw instructions.Performed By: #### CBC, FIB-C, PP #### [facility] [address] [place] [address] USAComplete Blood Count Auto Diffon [id number] (Bld) [#/Vol]0.0 10*3/uLNormal0.0-0.2The [facility] Physician GroupComment on above: Order Comment: Comment Every 6 hours while on tPAResult Comment: PERFORMED BY: [place] [address] PATHOLOGIST GAS REFRIGERATOR SERVICER JOLIE MASON M.D.Performed By: #### CBC, FIB-C, PP #### [place] [address] USABasophils/100 WBC (Bld)0.4 %Normal.The [facility] Physician GroupComment on above:Order Comment: Comment Every 6 hours while on tPA Performed By: #### CBC, FIB-C, PP #### [place] [address] USAEosinophils (Bld) [#/Vol]0.0 10*3/uLNormal0.0-0.45The [facility] Physician GroupComment on above:Order Comment: Comment Every 6 hours while on tPAPerformed By: #### CBC, FIB-C, PP #### [place] [address] USAEosinophils/100 WBC (Bld)0.5 %Normal.The [facility] Physician GroupComment on above:Order Comment: Comment Every 6 hours while on tPAPerformed By: #### CBC, FIB-C, PP #### [place] [address] USAErythrocyte distribution width (RBC) [Ratio]13.8 %Normal 12.0-14.8The [facility] Physician GroupComment on above:Order Comment: Comment Every 6 hours while on tPAPerformed By: #### CBC, FIB-C, PP #### [place] [address] USAHematocrit (Bld) [Volume fraction]43.3 %Pbqmmi69.8-50.0The [facility] Physician GroupComment on above:Order Comment: Comment Every 6 hours while on tPAPerformed By: #### CBC, FIB-C, PP #### [facility] [address] [place] [id number] USAHemoglobin (Bld) [Mass/Vol]14.7 g/jTXmbpzb12.0-17.0The [facility] Physician GroupComment on above:Order Comment: Comment Every 6 hours while on tPAPerformed By: #### CBC, FIB-C, PP #### [facility] [address] [place] [address] USALymphocytes (Bld) [#/Vol]0.7 10*3/uLLow1.00-4.8The [facility] Physician GroupComment on above:Order Comment: Comment Every 6 hours while on tPAPerformed By: #### CBC, FIB-C, PP #### [place] [address] USALymphocytes/100 WBC (Bld)9.1 %Normal.The [facility] Physician GroupComment on above:Order Comment: Comment Every 6 hours while on tPAPerformed By: #### CBC, FIB-C, PP #### [place] [address] USAMCH (RBC) [Entitic mass]34.1 dlIrmylr34.5-35.2The [facility] Physician GroupComment on above:Order Comment: Comment Every 6 hours while on tPAPerformed By: #### CBC, FIB-C, PP #### [place] [id number] USAV (RBC) [Entitic vol]100.2 gDRojgmm81.5-101The [facility] Physician GroupComment on above:Order Comment: Comment Every 6 hours while on tPAPerformed By: #### CBC, FIB-C, PP #### [place] [address] USAMean Corpuscular HGB Conc34.1 g/iTXeipdq15.5-35.6The [facility] Physician GroupComment on above:Order Comment: Comment Every 6 hours while on tPAPerformed By: #### CBC, FIB-C, PP #### [place] [address] USAMonocytes (Bld) [#/Vol]0.5 10*3/uLNormal0.0-0.8The [facility] Physician GroupComment on above:Order Comment: Comment Every 6 hours while on tPAPerformed By: #### CBC, FIB-C, PP #### [facility] [address] [place] [address] USAMonocytes/100 WBC (Bld)6.0 %Normal.The [facility] Physician GroupComment on above:Order Comment: Comment Every 6 hours while on tPA Performed By: #### CBC, FIB-C, PP #### [place] [address] USANeutrophils (Bld) [#/Vol]6.5 10*3/uLNormal1.8-7.7The [facility] Physician GroupComment on above:Order Comment: Comment Every 6 hours while on tPAPerformed By: #### CBC, FIB-C, PP #### [place] [address] USANeutrophils/100 WBC (Bld)84.0 %Normal.The [facility] Physician GroupComment on above:Order Comment: Comment Every 6 hours while on tPAPerformed By: #### CBC, FIB-C, PP #### [place] [address] USANRBC%0.0 /100{WBC}Normal0-0.5The [facility] Comment on above:Order Comment: Comment Every 6 hours while on tPAPerformed By: #### CBC, FIB-C, PP #### [place] [address] USAPlatelet mean volume (Bld) [Entitic vol]8.0 fLNormal 6.6-10.1The [facility] Physician GroupComment on above:Order Comment: Comment Every 6 hours while on tPAPerformed By: #### CBC, FIB-C, PP #### [facility] [address] [place] [address] USAPlatelets (Bld) [#/Vol]123 10*3/sRXdu836-488Ogq [facility] Physician GroupComment on above:Order Comment: Comment Every 6 hours while on tPAPerformed By: #### CBC, FIB-C, PP #### [place] [address] USARBC (Bld) [#/Vol]4.32 10*6/uLNormal3.90-5.60The [facility] Physician GroupComment on above:Order Comment: Comment Every 6 hours while on tPAPerformed By: #### CBC, FIB-C, PP #### [place] [address] USAWBC (Bld) [#/Vol]7.8 10*3/uLNormal4.1-10.5The [facility] Physician GroupComment on above:Order Comment: Comment Every 6 hours while on tPAPerformed By: #### CBC, FIB-C, PP #### [place] [address] USABasophils (Bld) [#/Vol]0.0 10*3/uLNormal0.0-0.2The [facility] Physician GroupComment on above:Order Comment: Comment Every 6 hour while on tPAResult Comment: PERFORMED BY: [place] [address] PATHOLOGIST GAS REFRIGERATOR SERVICER JOLIE MASON M.D.Performed By: #### CBC, PP, FIB-C #### [place] [address] USABasophils/100 WBC (Bld)0.4 %Normal.The [facility] Physician GroupComment on above:Order Comment: Comment Every 6 hour while on tPAPerformed By: #### CBC, PP, FIB-C #### [place] [address] USAEosinophils (Bld) [#/Vol]0.0 10*3/uLNormal0.0-0.45The [facility] Physician GroupComment on above:Order Comment: Comment Every 6 hour while on tPAPerformed By: #### CBC, PP, FIB-C #### [address] [place] [address] USAEosinophils/100 WBC (Bld)0.4 %Normal.The [facility] Physician GroupComment on above:Order Comment: Comment Every 6 hour while on tPA Performed By: #### CBC, PP, FIB-C #### [place] [address] USAErythrocyte distribution width (RBC) [Ratio]14.1 %Normal 12.0-14.8The [facility] Physician GroupComment on above:Order Comment: Comment Every 6 hour while on tPAPerformed By: #### CBC, PP, FIB-C #### [place] [address] USAHematocrit (Bld) [Volume fraction]43.4 %Aqmuwj58.8-50.0The [facility] Physician GroupComment on above:Order Comment: Comment Every 6 hour while on tPAPerformed By: #### CBC, PP, FIB-C #### [place] [address] USAHemoglobin (Bld) [Mass/Vol]14.8 g/lVKbvowh22.0-17.0The [facility] Physician GroupComment on above:Order Comment: Comment Every 6 hour while on tPAPerformed By: #### CBC, PP, FIB-C #### [place] [address] USALymphocytes (Bld) [#/Vol]0.7 10*3/uLLow1.00-4.8The [facility] Physician GroupComment on above:Order Comment: Comment Every 6 hour while on tPAPerformed By: #### CBC, PP, FIB-C #### [place] [id number] USALymphocytes/100 WBC (Bld)7.7 %Normal.The [facility] Physician GroupComment on above:Order Comment: Comment Every 6 hour while on tPA Performed By: #### CBC, PP, FIB-C #### [place] [address] USAMCH (RBC) [Entitic mass]33.9 mxPsawul08.5-35.2The [facility] Physician GroupComment on above:Order Comment: Comment Every 6 hour while on tPAPerformed By: #### CBC, PP, FIB-C #### [place] [address] USAMCV (RBC) [Entitic vol]99.7 pWQajjnv58.5-101The [facility] Physician GroupComment on above:Order Comment: Comment Every 6 hour while on tPA Performed By: #### CBC, PP, FIB-C #### [place] [address] USAMean Corpuscular HGB Conc34.0 g/bOEvtwdb28.5-35.6The [facility] Physician GroupComment on above:Order Comment: Comment Every 6 hour while on tPAPerformed By: #### CBC, PP, FIB-C #### [place] [address] USAMonocytes (Bld) [#/Vol]0.5 10*3/uLNormal0.0-0.8The [facility] Physician GroupComment on above:Order Comment: Comment Every 6 hour while on tPAPerformed By: #### CBC, PP, FIB-C #### [place] [address] USAMonocytes/100 WBC (Bld)5.8 %Normal.The [facility] Physician GroupComment on above:Order Comment: Comment Every 6 hour while on tPAPerformed By: #### CBC, PP, FIB-C #### [place] [address] USANeutrophils (Bld) [#/Vol]7.3 10*3/uLNormal1.8-7.7The [facility] Physician GroupComment on above:Order Comment: Comment Every 6 hour while on tPAPerformed By: #### CBC, PP, FIB-C #### [place] [address] USANeutrophils/100 WBC (Bld)85.7 %Normal.The [facility] Physician GroupComment on above:Order Comment: Comment Every 6 hour while on tPA Performed By: #### CBC, PP, FIB-C #### [facility] [address] [place] [address] USANRBC%0.1 /100{WBC}Normal0-0.5The [facility] Comment on above:Order Comment: Comment Every 6 hour while on tPAPerformed By: #### CBC, PP, FIB-C #### [place] [address] USAPlatelet mean volume (Bld) [Entitic vol]7.4 fLNormal 6.6-10.1The [facility] Physician GroupComment on above:Order Comment: Comment Every 6 hour while on tPAPerformed By: #### CBC, PP, FIB-C #### [place] [address] USAPlatelets (Bld) [#/Vol]133 10*3/zHGrz389-745Sig [facility] Physician GroupComment on above:Order Comment: Comment Every 6 hour while on tPA Performed By: #### CBC, PP, FIB-C #### [place] [address] USARBC (Bld) [#/Vol]4.36 10*6/uLNormal3.90-5.60The [facility] Physician GroupComment on above:Order Comment: Comment Every 6 hour while on tPA Performed By: #### CBC, PP, FIB-C #### [place] [address] USAWBC (Bld) [#/Vol]8.5 10*3/uLNormal4.1-10.5The [facility] Physician GroupComment on above:Order Comment: Comment Every 6 hour while on tPA Performed By: #### CBC, PP, FIB-C #### [place] [address] USABasophils (Bld) [#/Vol]0.0 10*3/uLNormal0.0-0.2The [facility] Physician GroupComment on above:Order Comment: Comment Every 6 hours while on tPAResult Comment: PERFORMED BY: [address] [place] [address] PATHOLOGIST GAS REFRIGERATOR SERVICER JOLIE MASON M.D.Performed By: #### CBC, FIB-C, PP #### [place] [address] USABasophils/100 WBC (Bld)0.2 %Normal.The [facility] Physician GroupComment on above:Order Comment: Comment Every 6 hours while on tPA Performed By: #### CBC, FIB-C, PP #### [place] [address] USAEosinophils (Bld) [#/Vol]0.1 10*3/uLNormal0.0-0.45The [facility] Physician GroupComment on above:Order Comment: Comment Every 6 hours while on tPAPerformed By: #### CBC, FIB-C, PP #### [place] [address] USAEosinophils/100 WBC (Bld)0.9 %Normal.The [facility] Physician GroupComment on above:Order Comment: Comment Every 6 hours while on tPAPerformed By: #### CBC, FIB-C, PP #### [place] [address] USAErythrocyte distribution width (RBC) [Ratio]14.0 %Normal 12.0-14.8The [facility] Physician GroupComment on above:Order Comment: Comment Every 6 hours while on tPAPerformed By: #### CBC, FIB-C, PP #### [place] [address] USAHematocrit (Bld) [Volume fraction]45.3 %Ucrbac46.8-50.0The [facility] Physician GroupComment on above:Order Comment: Comment Every 6 hours while on tPAPerformed By: #### CBC, FIB-C, PP #### [place] [address] USAHemoglobin (Bld) [Mass/Vol]15.0 g/hKIiwecx49.0-17.0The [facility] Physician GroupComment on above:Order Comment: Comment Every 6 hours while on tPAPerformed By: #### CBC, FIB-C, PP #### [facility] [address] [place] [address] USALymphocytes (Bld) [#/Vol]0.9 10*3/uLLow1.00-4.8The [facility] Physician GroupComment on above:Order Comment: Comment Every 6 hours while on tPAPerformed By: #### CBC, FIB-C, PP #### [facility] [address] [place] [id number] USALymphocytes/100 WBC (Bld)12.0 %Normal.The [facility] Physician GroupComment on above:Order Comment: Comment Every 6 hours while on tPAPerformed By: #### CBC, FIB-C, PP #### [place] [address] USAMCH (RBC) [Entitic mass]33.1 gzXujjhw16.5-35.2The [facility] Physician GroupComment on above:Order Comment: Comment Every 6 hours while on tPAPerformed By: #### CBC, FIB-C, PP #### [place] [address] USAMCV (RBC) [Entitic vol]100.2 lBTmethh80.5-101The [facility] Physician GroupComment on above:Order Comment: Comment Every 6 hours while on tPAPerformed By: #### CBC, FIB-C, PP #### [place] [address] USAMean Corpuscular HGB Conc33.1 g/mFCyfyok77.5-35.6The [facility] Physician GroupComment on above:Order Comment: Comment Every 6 hours while on tPAPerformed By: #### CBC, FIB-C, PP #### [place] [address] USAMonocytes (Bld) [#/Vol]0.5 10*3/uLNormal0.0-0.8The [facility] Physician GroupComment on above:Order Comment: Comment Every 6 hours while on tPAPerformed By: #### CBC, FIB-C, PP #### [facility] [address] [place] [id number] USAMonocytes/100 WBC (Bld)7.2 %Normal.The [facility] Physician GroupComment on above:Order Comment: Comment Every 6 hours while on tPA Performed By: #### CBC, FIB-C, PP #### [place] [address] USANeutrophils (Bld) [#/Vol]6.0 10*3/uLNormal1.8-7.7The [facility] Physician GroupComment on above:Order Comment: Comment Every 6 hours while on tPAPerformed By: #### CBC, FIB-C, PP #### [place] [address] USANeutrophils/100 WBC (Bld)79.7 %Normal.The [facility] Physician GroupComment on above:Order Comment: Comment Every 6 hours while on tPAPerformed By: #### CBC, FIB-C, PP #### [place] [address] USANRBC%0.1 /100{WBC}Normal0-0.5The [facility] Comment on above:Order Comment: Comment Every 6 hours while on tPAPerformed By: #### CBC, FIB-C, PP #### [place] [address] USAPlatelet mean volume (Bld) [Entitic vol]7.9 fLNormal 6.6-10.1The [facility] Physician GroupComment on above:Order Comment: Comment Every 6 hours while on tPAPerformed By: #### CBC, FIB-C, PP #### [facility] [address] [place] [address] USAPlatelets (Bld) [#/Vol]138 10*3/mCCci275-142Sqb [facility] Physician GroupComment on above:Order Comment: Comment Every 6 hours while on tPAPerformed By: #### CBC, FIB-C, PP #### [place] [address] USARBC (Bld) [#/Vol]4.52 10*6/uLNormal3.90-5.60The [facility] Physician GroupComment on above:Order Comment: Comment Every 6 hours while on tPAPerformed By: #### CBC, FIB-C, PP #### [place] [address] USAWBC (Bld) [#/Vol]7.5 10*3/uLNormal4.1-10.5The [facility]ician GroupComment on above:Order Comment: Comment Every 6 hours while on tPAPerformed By: #### CBC, FIB-C, PP #### [place] [address] USABasophils (Bld) [#/Vol]0.0 10*3/uLNormal0.0-0.2The [facility]ician GroupComment on above:Order Comment: Comment Every 6 hour while on tPAResult Comment: PERFORMED BY: [place] [address] PATHOLOGIST GAS REFRIGERATOR SERVICER JOLIE MASON M.D.Performed By: #### CBC, FIB-C, PP #### [place] [address] USABasophils/100 WBC (Bld)0.3 %Normal.The [facility] Physician GroupComment on above:Order Comment: Comment Every 6 hour while on tPAPerformed By: #### CBC, FIB-C, PP #### [place] [address] USAEosinophils (Bld) [#/Vol]0.2 10*3/uLNormal0.0-0.45The [facility]ician GroupComment on above:Order Comment: Comment Every 6 hour while on tPAPerformed By: #### CBC, FIB-C, PP #### [place] [id number] USAEosinophils/100 WBC (Bld)3.7 %Normal.The [facility] Physician GroupComment on above:Order Comment: Comment Every 6 hour while on tPA Performed By: #### CBC, FIB-C, PP #### [place] [address] USAErythrocyte distribution width (RBC) [Ratio]14.0 %Normal 12.0-14.8The [facility] Physician GroupComment on above:Order Comment: Comment Every 6 hour while on tPAPerformed By: #### CBC, FIB-C, PP #### [place] [address] USAHematocrit (Bld) [Volume fraction]45.4 %Etupqj92.8-50.0The [facility] Physician GroupComment on above:Order Comment: Comment Every 6 hour while on tPAPerformed By: #### CBC, FIB-C, PP #### [place] [address] USAHemoglobin (Bld) [Mass/Vol]15.4 g/gWZhsucj75.0-17.0The [facility] Physician GroupComment on above:Order Comment: Comment Every 6 hour while on tPAPerformed By: #### CBC, FIB-C, PP #### [place] [address] USALymphocytes (Bld) [#/Vol]1.4 10*3/uLNormal1.00-4.8The [facility] Physician GroupComment on above:Order Comment: Comment Every 6 hour while on tPAPerformed By: #### CBC, FIB-C, PP #### [place] [address] USALymphocytes/100 WBC (Bld)22.9 %Normal.The [facility] Physician GroupComment on above:Order Comment: Comment Every 6 hour while on tPA Performed By: #### CBC, FIB-C, PP #### [place] [id number] USAMCH (RBC) [Entitic mass]33.9 npOjacun09.5-35.2The [facility] Physician GroupComment on above:Order Comment: Comment Every 6 hour while on tPAPerformed By: #### CBC, FIB-C, PP #### [place] [address] USAMCV (RBC) [Entitic vol]99.8 uPQhzbry76.5-101The [facility] Physician GroupComment on above:Order Comment: Comment Every 6 hour while on tPA Performed By: #### CBC, FIB-C, PP #### [facility] [address] [place] [id number] USAMean Corpuscular HGB Conc34.0 g/wEYxxkqg91.5-35.6The [facility]ician GroupComment on above:Order Comment: Comment Every 6 hour while on tPAPerformed By: #### CBC, FIB-C, PP #### [place] [address] USAMonocytes (Bld) [#/Vol]0.5 10*3/uLNormal0.0-0.8The [facility] Physician GroupComment on above:Order Comment: Comment Every 6 hour while on tPAPerformed By: #### CBC, FIB-C, PP #### [place] [address] USAMonocytes/100 WBC (Bld)8.6 %Normal.The [facility] Physician GroupComment on above:Order Comment: Comment Every 6 hour while on tPAPerformed By: #### CBC, FIB-C, PP #### [place] [address] USANeutrophils (Bld) [#/Vol]3.9 10*3/uLNormal1.8-7.7The [facility] Physician GroupComment on above:Order Comment: Comment Every 6 hour while on tPAPerformed By: #### CBC, FIB-C, PP #### [place] [id number] USANeutrophils/100 WBC (Bld)64.5 %Normal.The [facility] Physician GroupComment on above:Order Comment: Comment Every 6 hour while on tPA Performed By: #### CBC, FIB-C, PP #### [place] [address] USANRBC%0.1 /100{WBC}Normal0-0.5The [facility] Comment on above:Order Comment: Comment Every 6 hour while on tPAPerformed By: #### CBC, FIB-C, PP #### [facility] [address] [place] [address] USAPlatelet mean volume (Bld) [Entitic vol]7.7 fLNormal 6.6-10.1The [facility] Physician GroupComment on above:Order Comment: Comment Every 6 hour while on tPAPerformed By: #### CBC, FIB-C, PP #### [facility] [address] [place] [address] USAPlatelets (Bld) [#/Vol]145 10*3/sFUbc892-047Mhb [facility] Physician GroupComment on above:Order Comment: Comment Every 6 hour while on tPA Performed By: #### CBC, FIB-C, PP #### [facility] [address] [place] [address] USARBC (Bld) [#/Vol]4.55 10*6/uLNormal3.90-5.60The [facility] Physician GroupComment on above:Order Comment: Comment Every 6 hour while on tPA Performed By: #### CBC, FIB-C, PP #### [facility] [address] [place] [address] USAWBC (Bld) [#/Vol]6.0 10*3/uLNormal4.1-10.5The [facility] Physician GroupComment on above:Order Comment: Comment Every 6 hour while on tPA Performed By: #### CBC, FIB-C, PP #### [facility] [address] [place] [address] USACreatinine [Mass/volume] in Serum or PlasmaOrdered By: Niko Del Angel on [id number] [Mass/Vol]0.69 mg/dLLow0.70-1.30 [facility] SystemComment on above:Performed By: #### BMP ####[facility] [id number] [place] [id number] USAECG 12 lead ECGon [id number] 12 lead ECGSELECT MEDICAL [facility] [address] [place] [address] [place] [address] Electrocardiograph Report Signed Patient: Pawan Bustillo MR#: [id number] 3 : 1955 Acct:[id number] Age/Sex: 67 / M ADM Date: 09/14/23 Loc: Room: [address] [place] [address] Type: ADM IN Attending Dr: Tom Schroeder [...] previous ECGs available Confirmed by Leonora York ([id number]) on 09/16/2023 6:19:14 PM Referred By: Electronically Signed By:Leonora York Transcribed By: MUS Signed By Leonora York MD 09/16/23 1819[facility] Physician GroupFibrinogenon 09-15-2023 Kgbbklouys873 mg/tKQes183-254Oqc [facility] SystemComment on above:Order Comment: Comment Every 6 hours while on tPAResult Comment: A hematocrit value greater than 55% may lead to inaccurate results in coagulation testing. Patients having hematocrit values >55% require a special collection tube for coagulation studies. Please contact the laboratory at [phone] for redraw instructions. PERFORMED BY: [place] [address] PATHOLOGIST GAS REFRIGERATOR SERVICER JOLIE MASON M.D.Performed By: #### CBC, FIB-C, PP #### [place] [address] RJKRolkihspfi947 mg/jFTcp977-930Cmt [facility] Comment on above:Order Comment: Comment Every 6 hours while on tPAResult Comment: A hematocrit value greater than 55% may lead to inaccurate results in coagulation testing. Patients having hematocrit values >55% require a special collection tube for coagulation studies. Please contact the laboratory at [phone] for redraw instructions. PERFORMED BY: [address] [address] PATHOLOGIST GAS REFRIGERATOR SERVICER JOLIE MASON M.D.Performed By: #### CBC, PP, FIB-C #### [facility] [address] [place] [address] JUBSmacnyyelm057 mg/oOKfd735-915Slr [facility]ician Group Comment on above:Order Comment: Comment Every 6 hours while on tPAResult Comment: A hematocrit value greater than 55% may lead to inaccurate results in coagulation testing. Patients having hematocrit values >55% require a special collection tube for coagulation studies. Please contact the laboratory at [phone] for redraw instructions. PERFORMED BY: [address] [address] PATHOLOGIST GAS REFRIGERATOR SERVICER JOLIE MASON M.D.Performed By: #### CBC, FIB-C, PP #### [address] [address] IXNQbdycneuyu631 mg/mCFur903-029Twu [facility] Comment on above:Order Comment: Comment Every 6 hours while on tPAResult Comment: A hematocrit value greater than 55% may lead to inaccurate results in coagulation testing. Patients having hematocrit values >55% require a special collection tube for coagulation studies. Please contact the laboratory at [phone] for redraw instructions. PERFORMED BY: [place] [id number] PATHOLOGIST GAS REFRIGERATOR SERVICER JOLIE MASON M.D.Performed By: #### CBC, FIB-C, PP #### [facility] [address] [place] [address] USAGlucose [Mass/volume] in Serum or PlasmaOrdered By: Niko Del Angel on 32-70-2170Pueivuy [Mass/Vol]95 mg/wFUohmop72-544GqwqnjralAvita Health SystemComment on above:ADA recommended reference rangeRandom Glucose Reference Range is dependent on time and content of last meal. Glucose of more than 200 mg/dL in a nonstressed, ambulatory subject supports the diagnosisof Diabetes Mellitus.Result Comment: Random Glucose Reference Range is dependent on time and content of last meal. Glucose of more than 200 mg/dL in a nonstressed, ambulatory subject supports the diagnosis of Diabetes Mellitus. ADA recommended reference rangePerformed By: #### BMP ####[address] [address] USANo Panel InformationOrdered By: Niko Del Angel on 83-44-0896Cqrwpmngt GFR (CKD-EPI)> 60.0 mL/MinAvita Health SystemPharmacy Creatinine Clearance (Chem95.43Avita Health SystemPotassium [Moles/volume] in Serum or PlasmaOrdered By: Niko Del Angel on 57-17-8056Isklhuzvy [Moles/Vol]4.7 mmol/LNormal3.5-5.1 [facility] Health SystemComment on above:Performed By: #### BMP ####[address] [address] USASerum or plasma anion gap determinationOrdered By: Niko Del Angel on 09-15-2023 Anion gap [Moles/Vol]5.8 mmol/LLow6.0-15.0[facility] Comment on above:Performed By: #### BMP ####[address] [address] USASodium [Moles/volume] in Serum or Plasma Ordered By: Niko Del Angel on 01-90-8717Dhrmou [Moles/Vol]137 mmol/LNormal 136-145Avita Health SystemComment on above:Performed By: #### BMP ####[address] [address] USAUrea nitrogen [Mass/volume] in Serum or PlasmaOrdered By: Niko Del Angel on 31-46-4455Qkos nitrogen [Mass/Vol]11 mg/dLNormal7-25[facility] Health SystemComment on above:Performed By: #### BMP ####[address] [address] USAABO/Rh Retypeon 23-06-8598MQE/RH Recheck ResultPositiveNormalThe [facility] Physician GroupComment on above:Result Comment: PERFORMED BY: [place] [id number] PATHOLOGIST GAS REFRIGERATOR SERVICER JOLIE MASON M.D.Blood Urea Nitrogenon 88-95-5629Zzjt nitrogen [Mass/Vol]16 mg/dL Normal7-25The [facility] Physician GroupComment on above:Performed By: #### CREAT, BUN #### [place] [id number] USACoagulation Profileon 97-70-4563jVLQ Coag (Bld) [Time]32.2 wWpygpf03.1-36.5The [facility] Physician GroupComment on above:Order Comment: Comment Every 6 hours while on tPAResult Comment: A hematocrit value greater than 55% may lead to inaccurate results in coagulation testing. Patients having hematocrit values >55% require a special collection tube for coagulation studies. Please contact the laboratory at [phone] for redraw instructions.Performed By: #### CBC, FIB-C, PP #### [address] [address] USAINR Coag (PPP) [Relative time]1.0 {INR}NormalThe [facility] Physician GroupComment on above:Order Comment: Comment Every 6 hours while on tPAResult Comment: INR Therapeutic Range A) Pre- and [...] patients with mechanical heart valves: 3 - 4.5Performed By: #### CBC, FIB-C, PP #### [address] [address] USAPT Coag (PPP) [Time]11.5 sNormal9.0-12.9The [facility] Physician GroupComment on above:Order Comment: Comment Every 6 hours while on tPAResult Comment: A hematocrit value greater than 55% may lead to inaccurate results in coagulation testing. Patients having hematocrit values >55% require a special collection tube for coagulation studies. Please contact the laboratory at [phone] for redraw instructions.Performed By: #### CBC, FIB-C, PP #### [facility] [address] [place] [address] USAaPTT Coag (Bld) [Time]30.0 mNrhllh19.1-36.5The [facility] Physician GroupComment on above:Order Comment: Comment Every 6 hours while on tPAResult Comment: A hematocrit value greater than 55% may lead to inaccurate results in coagulation testing. Patients having hematocrit values >55% require a special collection tube for coagulation studies. Please contact the laboratory at [phone] for redraw instructions.Performed By: #### CBC, FIB-C, PP #### [facility] [address] [place] [address] USAINR Coag (PPP) [Relative time]1.0 {INR}NormalThe [facility] Physician GroupComment on above:Order Comment: Comment Every 6 hours while on tPAResult Comment: INR Therapeutic Range A) Pre- and [...] patients with mechanical heart valves: 3 - 4.5Performed By: #### CBC, FIB-C, PP #### [facility] [address] [place] [address] USAPT Coag (PPP) [Time]12.1 sNormal9.0-12.9The [facility] Physician GroupComment on above:Order Comment: Comment Every 6 hours while on tPAResult Comment: A hematocrit value greater than 55% may lead to inaccurate results in coagulation testing. Patients having hematocrit values >55% require a special collection tube for coagulation studies. Please contact the laboratory at [phone] for redraw instructions.Performed By: #### CBC, FIB-C, PP #### [facility] [address] [place] [address] USAaPTT Coag (Bld) [Time]81.7 sHigh25.1-36.5The [facility] Physician GroupComment on above:Order Comment: Comment Every 6 hours while on tPAResult Comment: A hematocrit value greater than 55% may lead to inaccurate results in coagulation testing. Patients having hematocrit values >55% require a special collection tube for coagulation studies. Please contact the laboratory at [phone] for redraw instructions.Performed By: #### CBC, FIB-C, PP #### [place] [address] USAINR Coag (PPP) [Relative time]1.1 {INR}NormalThe [facility] Physician GroupComment on above:Order Comment: Comment Every 6 hours while on tPAResult Comment: INR Therapeutic Range A) Pre- and [...] patients with mechanical heart valves: 3 - 4.5Performed By: #### CBC, FIB-C, PP #### [address] [address] USAPT Coag (PPP) [Time]12.4 sNormal9.0-12.9The [facility] Physician GroupComment on above:Order Comment: Comment Every 6 hours while on tPAResult Comment: A hematocrit value greater than 55% may lead to inaccurate results in coagulation testing. Patients having hematocrit values >55% require a special collection tube for coagulation studies. Please contact the laboratory at [phone] for redraw instructions.Performed By: #### CBC, FIB-C, PP #### [address] [address] USAComplete Blood Count Auto Diffon 58-29-9584Xrbilruzu (Bld) [#/Vol]0.0 10*3/uLNormal0.0-0.2The [facility] Physician GroupComment on above: Order Comment: Comment Every 6 hours while on tPAResult Comment: PERFORMED BY: [place] [address] PATHOLOGIST GAS REFRIGERATOR SERVICER JOLIE MASON M.D.Performed By: #### CBC, FIB-C, PP #### [place] [address] USABasophils/100 WBC (Bld)0.8 %Normal.The [facility] Physician GroupComment on above:Order Comment: Comment Every 6 hours while on tPA Performed By: #### CBC, FIB-C, PP #### [place] [address] USAEosinophils (Bld) [#/Vol]0.3 10*3/uLNormal0.0-0.45The [facility] Physician GroupComment on above:Order Comment: Comment Every 6 hours while on tPAPerformed By: #### CBC, FIB-C, PP #### [place] [address] USAEosinophils/100 WBC (Bld)4.1 %Normal.The [facility] Physician GroupComment on above:Order Comment: Comment Every 6 hours while on tPAPerformed By: #### CBC, FIB-C, PP #### [place] [address] USAErythrocyte distribution width (RBC) [Ratio]14.1 %Normal 12.0-14.8The [facility] Physician GroupComment on above:Order Comment: Comment Every 6 hours while on tPAPerformed By: #### CBC, FIB-C, PP #### [place] [address] USAHematocrit (Bld) [Volume fraction]44.4 %Mekwmh73.8-50.0The [facility] Physician GroupComment on above:Order Comment: Comment Every 6 hours while on tPAPerformed By: #### CBC, FIB-C, PP #### [place] [address] USAHemoglobin (Bld) [Mass/Vol]15.0 g/pQWitksn39.0-17.0The [facility] Physician GroupComment on above:Order Comment: Comment Every 6 hours while on tPAPerformed By: #### CBC, FIB-C, PP #### [place] [address] USALymphocytes (Bld) [#/Vol]1.3 10*3/uLNormal1.00-4.8The [facility] GroupComment on above:Order Comment: Comment Every 6 hours while on tPAPerformed By: #### CBC, FIB-C, PP #### [place] [address] USALymphocytes/100 WBC (Bld)22.1 %Normal.The [facility] Physician GroupComment on above:Order Comment: Comment Every 6 hours while on tPAPerformed By: #### CBC, FIB-C, PP #### [place] [address] USAMCH (RBC) [Entitic mass]33.9 mfCiwdhl73.5-35.2The [facility]ician GroupComment on above:Order Comment: Comment Every 6 hours while on tPAPerformed By: #### CBC, FIB-C, PP #### [place] [address] USAMCV (RBC) [Entitic vol]100.2 bUWufbsd27.5-101The [facility]ician GroupComment on above:Order Comment: Comment Every 6 hours while on tPAPerformed By: #### CBC, FIB-C, PP #### [place] [address] USAMean Corpuscular HGB Conc33.8 g/fNFovjmj04.5-35.6The [facility] GroupComment on above:Order Comment: Comment Every 6 hours while on tPAPerformed By: #### CBC, FIB-C, PP #### [place] [address] USAMonocytes (Bld) [#/Vol]0.4 10*3/uLNormal0.0-0.8The [facility] GroupComment on above:Order Comment: Comment Every 6 hours while on tPAPerformed By: #### CBC, FIB-C, PP #### [place] [address] USAMonocytes/100 WBC (Bld)7.3 %Normal.The [facility] Physician GroupComment on above:Order Comment: Comment Every 6 hours while on tPA Performed By: #### CBC, FIB-C, PP #### [facility] [address] [place] [address] USANeutrophils (Bld) [#/Vol]4.0 10*3/uLNormal1.8-7.7The [facility] GroupComment on above:Order Comment: Comment Every 6 hours while on tPAPerformed By: #### CBC, FIB-C, PP #### [facility] [address] [place], [place] [address] USANeutrophils/100 WBC (Bld)65.7 %Normal.The [facility] GroupComment on above:Order Comment: Comment Every 6 hours while on tPAPerformed By: #### CBC, FIB-C, PP #### [place] [address] USANRBC%0.2 /100{WBC}Normal0-0.5The [facility] Comment on above:Order Comment: Comment Every 6 hours while on tPAPerformed By: #### CBC, FIB-C, PP #### [facility] [address] [place], [place] [address] USAPlatelet mean volume (Bld) [Entitic vol]8.0 fLNormal 6.6-10.1The [facility] GroupComment on above:Order Comment: Comment Every 6 hours while on tPAPerformed By: #### CBC, FIB-C, PP #### [facility] [address] [place], [place] [address] USAPlatelets (Bld) [#/Vol]153 10*3/zEMvoxto926-015Pfz [facility] GroupComment on above:Order Comment: Comment Every 6 hours while on tPAPerformed By: #### CBC, FIB-C, PP #### [place] [id number] USARBC (Bld) [#/Vol]4.43 10*6/uLNormal3.90-5.60The [facility] GroupComment on above:Order Comment: Comment Every 6 hours while on tPAPerformed By: #### CBC, FIB-C, PP #### [place] [address] USAWBC (Bld) [#/Vol]6.1 10*3/uLNormal4.1-10.5The [facility] GroupComment on above:Order Comment: Comment Every 6 hours while on tPAPerformed By: #### CBC, FIB-C, PP #### [place] [address] USABasophils (Bld) [#/Vol]0.0 10*3/uLNormal0.0-0.2The [facility] GroupComment on above:Order Comment: Comment Every 6 hour while on tPAResult Comment: PERFORMED BY: [place] [address] PATHOLOGIST GAS REFRIGERATOR SERVICER JOLIE MASON M.D.Performed By: #### FIB-C, CBC, PP #### [place] [address] USABasophils/100 WBC (Bld)0.7 %Normal.The [facility] GroupComment on above:Order Comment: Comment Every 6 hour while on tPAPerformed By: #### FIB-C, CBC, PP #### [place] [address] USAEosinophils (Bld) [#/Vol]0.2 10*3/uLNormal0.0-0.45The [facility] GroupComment on above:Order Comment: Comment Every 6 hour while on tPAPerformed By: #### FIB-C, CBC, PP #### [place] [address] USAEosinophils/100 WBC (Bld)3.9 %Normal.The [facility] GroupComment on above:Order Comment: Comment Every 6 hour while on tPA Performed By: #### FIB-C, CBC, PP #### [place] [address] USAErythrocyte distribution width (RBC) [Ratio]13.6 %Normal 12.0-14.8The [facility] GroupComment on above:Order Comment: Comment Every 6 hour while on tPAPerformed By: #### FIB-C, CBC, PP #### [place] [address] USAHematocrit (Bld) [Volume fraction]44.6 %Qxsrgm50.8-50.0The [facility] GroupComment on above:Order Comment: Comment Every 6 hour while on tPAPerformed By: #### FIB-C, CBC, PP #### [place] [address] USAHemoglobin (Bld) [Mass/Vol]14.9 g/wOIvqdkj64.0-17.0The [facility] GroupComment on above:Order Comment: Comment Every 6 hour while on tPAPerformed By: #### FIB-C, CBC, PP #### [place] [address] USALymphocytes (Bld) [#/Vol]1.4 10*3/uLNormal1.00-4.8The [facility] GroupComment on above:Order Comment: Comment Every 6 hour while on tPAPerformed By: #### FIB-C, CBC, PP #### [place] [id number] USALymphocytes/100 WBC (Bld)22.1 %Normal.The [facility] GroupComment on above:Order Comment: Comment Every 6 hour while on tPA Performed By: #### FIB-C, CBC, PP #### [place] [id number] USAMCH (RBC) [Entitic mass]33.5 vmWlauuz59.5-35.2The [facility] GroupComment on above:Order Comment: Comment Every 6 hour while on tPAPerformed By: #### FIB-C, CBC, PP #### [place] [id number] USAMCV (RBC) [Entitic vol]100.4 iDRmuyvu89.5-101The [facility] GroupComment on above:Order Comment: Comment Every 6 hour while on tPA Performed By: #### FIB-C, CBC, PP #### [place] [address] USAMean Corpuscular HGB Conc33.4 g/bLVbcjvv94.5-35.6The [facility] GroupComment on above:Order Comment: Comment Every 6 hour while on tPAPerformed By: #### FIB-C, CBC, PP #### [place] [address] USAMonocytes (Bld) [#/Vol]0.5 10*3/uLNormal0.0-0.8The [facility] GroupComment on above:Order Comment: Comment Every 6 hour while on tPAPerformed By: #### FIB-C, CBC, PP #### [place] [address] USAMonocytes/100 WBC (Bld)7.5 %Normal.The [facility] GroupComment on above:Order Comment: Comment Every 6 hour while on tPAPerformed By: #### FIB-C, CBC, PP #### [place] [address] USANeutrophils (Bld) [#/Vol]4.0 10*3/uLNormal1.8-7.7The [facility] GroupComment on above:Order Comment: Comment Every 6 hour while on tPAPerformed By: #### FIB-C, CBC, PP #### [place] [address] USANeutrophils/100 WBC (Bld)65.8 %Normal.The [facility] GroupComment on above:Order Comment: Comment Every 6 hour while on tPA Performed By: #### FIB-C, CBC, PP #### [place] [address] USANRBC%0.0 /100{WBC}Normal0-0.5The [facility] Comment on above:Order Comment: Comment Every 6 hour while on tPAPerformed By: #### FIB-C, CBC, PP #### [place] [address] USAPlatelet mean volume (Bld) [Entitic vol]7.7 fLNormal 6.6-10.1The [facility] GroupComment on above:Order Comment: Comment Every 6 hour while on tPAPerformed By: #### FIB-C, CBC, PP #### [place] [address] USAPlatelets (Bld) [#/Vol]168 10*3/yZWfbred705-485Ylw [facility] GroupComment on above:Order Comment: Comment Every 6 hour while on tPAPerformed By: #### FIB-C, CBC, PP #### [place] [address] USARBC (Bld) [#/Vol]4.45 10*6/uLNormal3.90-5.60The [facility] GroupComment on above:Order Comment: Comment Every 6 hour while on tPA Performed By: #### FIB-C, CBC, PP #### [place] [address] USAWBC (Bld) [#/Vol]6.1 10*3/uLNormal4.1-10.5The [facility] GroupComment on above:Order Comment: Comment Every 6 hour while on tPA Performed By: #### FIB-C, CBC, PP #### [place] [address] USABasophils (Bld) [#/Vol]0.0 10*3/uLNormal0.0-0.2The [facility] GroupComment on above:Order Comment: Comment Every 6 hours while on tPAResult Comment: PERFORMED BY: [place] [address] PATHOLOGIST GAS REFRIGERATOR SERVICER JOLIE MASON M.D.Performed By: #### CBC, FIB-C, PP #### [place] [address] USABasophils/100 WBC (Bld)0.7 %Normal.The [facility] GroupComment on above:Order Comment: Comment Every 6 hours while on tPA Performed By: #### CBC, FIB-C, PP #### [place] [address] USAEosinophils (Bld) [#/Vol]0.2 10*3/uLNormal0.0-0.45The [facility] GroupComment on above:Order Comment: Comment Every 6 hours while on tPAPerformed By: #### CBC, FIB-C, PP #### [place] [address] USAEosinophils/100 WBC (Bld)3.3 %Normal.The [facility] GroupComment on above:Order Comment: Comment Every 6 hours while on tPAPerformed By: #### CBC, FIB-C, PP #### [place] [address] USAErythrocyte distribution width (RBC) [Ratio]14.1 %Normal 12.0-14.8The [facility] GroupComment on above:Order Comment: Comment Every 6 hours while on tPAPerformed By: #### CBC, FIB-C, PP #### [place] [address] USAHematocrit (Bld) [Volume fraction]45.5 %Jqmhro78.8-50.0The [facility] GroupComment on above:Order Comment: Comment Every 6 hours while on tPAPerformed By: #### CBC, FIB-C, PP #### [place] [address] USAHemoglobin (Bld) [Mass/Vol]15.5 g/xPJkbdhl62.0-17.0The [facility] GroupComment on above:Order Comment: Comment Every 6 hours while on tPAPerformed By: #### CBC, FIB-C, PP #### [place] [address] USALymphocytes (Bld) [#/Vol]1.3 10*3/uLNormal1.00-4.8The [facility] GroupComment on above:Order Comment: Comment Every 6 hours while on tPAPerformed By: #### CBC, FIB-C, PP #### [place] [address] USALymphocytes/100 WBC (Bld)22.0 %Normal.The [facility] GroupComment on above:Order Comment: Comment Every 6 hours while on tPAPerformed By: #### CBC, FIB-C, PP #### [address] (RBC) [Entitic mass]33.9 bhBaoirs72.5-35.2The [facility] GroupComment on above:Order Comment: Comment Every 6 hours while on tPAPerformed By: #### CBC, FIB-C, PP #### [address] (RBC) [Entitic vol]99.4 sIAesijg62.5-101The [facility] GroupComment on above:Order Comment: Comment Every 6 hours while on tPAPerformed By: #### CBC, FIB-C, PP #### [place] [address] USAMean Corpuscular HGB Conc34.1 g/lEXezzsd44.5-35.6The [facility] GroupComment on above:Order Comment: Comment Every 6 hours while on tPAPerformed By: #### CBC, FIB-C, PP #### [place] [address] USAMonocytes (Bld) [#/Vol]0.5 10*3/uLNormal0.0-0.8The [facility] GroupComment on above:Order Comment: Comment Every 6 hours while on tPAPerformed By: #### CBC, FIB-C, PP #### [place] [address] USAMonocytes/100 WBC (Bld)8.1 %Normal.The [facility] GroupComment on above:Order Comment: Comment Every 6 hours while on tPA Performed By: #### CBC, FIB-C, PP #### [place] [address] USANeutrophils (Bld) [#/Vol]3.9 10*3/uLNormal1.8-7.7The [facility] GroupComment on above:Order Comment: Comment Every 6 hours while on tPAPerformed By: #### CBC, FIB-C, PP #### [facility] [address] [place] [id number] USANeutrophils/100 WBC (Bld)65.9 %Normal.The [facility] GroupComment on above:Order Comment: Comment Every 6 hours while on tPAPerformed By: #### CBC, FIB-C, PP #### [facility] [address] [place] [address] USANRBC%0.1 /100{WBC}Normal0-0.5The [facility] Comment on above:Order Comment: Comment Every 6 hours while on tPAPerformed By: #### CBC, FIB-C, PP #### [facility] [address] [place] [address] USAPlatelet mean volume (Bld) [Entitic vol]8.1 fLNormal 6.6-10.1The [facility] GroupComment on above:Order Comment: Comment Every 6 hours while on tPAPerformed By: #### CBC, FIB-C, PP #### [facility] [address] [place] [address] USAPlatelets (Bld) [#/Vol]179 10*3/kBMgqzzz994-137Las [facility] GroupComment on above:Order Comment: Comment Every 6 hours while on tPAPerformed By: #### CBC, FIB-C, PP #### [facility] [address] [place] [address] USARBC (Bld) [#/Vol]4.58 10*6/uLNormal3.90-5.60The [facility] GroupComment on above:Order Comment: Comment Every 6 hours while on tPAPerformed By: #### CBC, FIB-C, PP #### [facility] [address] [place] [id number] USAWBC (Bld) [#/Vol]5.9 10*3/uLNormal4.1-10.5The [facility] GroupComment on above:Order Comment: Comment Every 6 hours while on tPAPerformed By: #### CBC, FIB-C, PP #### [place] [address] USACreatinineon 00-29-0522Xdkajgkmcq [Mass/Vol]0.88 mg/dL Normal0.70-1.30The [facility]ician GroupComment on above:Performed By: #### CREAT, BUN #### [place] [address] USACreatinine Clr Calc Wkycpmtw18.76NormalThe [facility] Physician GroupComment on above:Result Comment: PERFORMED BY: [place] [address] PATHOLOGIST GAS REFRIGERATOR SERVICER JOLIE MASON M.D.Performed By: #### CREAT, BUN #### [place] [address] USAGFR/1.73 sq M.predicted MDRD (S/P/Bld) [Vol rate/Area] mL/min/{1.73_m2}NormalThe [facility] Physician GroupComment on above:Performed By: #### CREAT, BUN #### [place] [address] USAFibrinogenon 59-93-3790Xdlywufqgb334 mg/vSSdmyzb059-895Bqg [facility] GroupComment on above:Order Comment: Comment Every 6 hours while on tPAResult Comment: --- 09/14/23 225 --- Fib previously reported as: 194 L mg/dL A hematocrit value greater than 55% may lead to inaccurate results in coagulation testing. Patients having hematocrit values >55% require a special collection tube for coagulation studies. Please contact the laboratory at [phone] for redraw instructions. PERFORMED BY: [place] [address] PATHOLOGIST GAS REFRIGERATOR SERVICER JOLIE MASON M.D.Performed By: #### CBC, FIB-C, PP #### [address] [place] [address] YUAHvqwsqgtvq209 mg/uVJsicll176-364Gbz [facility] GroupComment on above:Order Comment: Comment Every 6 hours while on tPAResult Comment: A hematocrit value greater than 55% may lead to inaccurate results in coagulation testing. Patients having hematocrit values >55% require a special collection tube for coagulation studies. Please contact the laboratory at [phone] for redraw instructions. PERFORMED BY: [place] [address] PATHOLOGIST GAS REFRIGERATOR SERVICER JOLIE MASON M.D.Performed By: #### CBC, FIB-C, PP #### [place] [address] FURFdrxdatakd072 mg/wKEqeibr902-335Xws [facility] GroupComment on above:Order Comment: Comment Every 6 hours while on tPAResult Comment: A hematocrit value greater than 55% may lead to inaccurate results in coagulation testing. Patients having hematocrit values >55% require a special collection tube for coagulation studies. Please contact the laboratory at [phone] for redraw instructions. PERFORMED BY: [place] [address] PATHOLOGIST GAS REFRIGERATOR SERVICER JOLIE MASON M.D.Performed By: #### CBC, FIB-C, PP #### [place] [address] USAType and Screenon 84-62-2679MRH and Rh group Nom (Bld) Blood group O Rh(D) positiveNoCommunity Health Physician [facility] Care SystemComment on above: Result Comment: PERFORMED BY: [place] [address] PATHOLOGIST GAS REFRIGERATOR SERVICER JOLIE MASON M.D.US ankle/arm indiceson 16-53-7827FY ankle/arm indicesSELECT MEDICAL [facility] [place] [address] [place] [address] Ultrasound Report Signed Patient: Pawan Bustillo MR#: [id number] 3 : 1955 Acct:[id number] Age/Sex: 67 / M ADM Date: 09/12/23 Loc: [facility] Room: Type: [facility] [address] Attending Dr: Tom Schroeder MD Ordering Provider: [...] Tom Schroeder M.D.09/12/2023 12:20 PM Dictation Location: [place] [address] Tech: Nikole Avitia Transcribed By: NOÉ 09/12/23 1220 Dictated By: Tom Schroeder MD 09/12/23 1218 Signed By: 09/12/23 1220[facility] Physician GroupCreatinine [Mass/volume] in Serum or PlasmaOrdered By: Tom Schroeder on 25-58-9916Kcwmnkanog [Mass/Vol] 0.89 mg/dL0.70-1.30[facility] SystemNo Panel InformationOrdered By: Tom Schroeder on 73-01-1737Icguytuev GFR (CKD-EPI)> 60.0 mL/MinAvita Health SystemPharmacy Creatinine Clearance (Chem88.40[facility] SystemUrea nitrogen [Mass/volume] in Serum or PlasmaOrdered By: Tom Schroeder on 74-26-1020Nznu nitrogen [Mass/Vol]17 mg/dL7-25[facility] SystemCreatinine (Bld) [Mass/Vol]Ordered By: Madie Honeycutt on 72-65-1497Ywhnvmqnjj [Mass/Vol]1.0 mg/dL0.6-1.3FUniversity Hospitals Parma Medical Center Comment on above:ER/ESD physician is notified/shown all ISTAT results.Critical values may be confirmed by laboratorytesting ifdeemed necessary by ER attending doctor.No Panel InformationOrdered By: Madie Lopezsergo on 29-75-2151Gfeozqr Estimated GFR (eGFR)> 60.0[facility] Health SystemCBC AUTO DIFFon 36-59-7582QOSN #0.0 103/ulNormal0.0-0.1The Doctors HospitalComment on above: Performed By: #### CBC #### [facility] [address] [address] [address] Kathy ChangBasophils/100 WBC (Bld)0.2 %Normal0.2-2.0[facility] Comment on above:Performed By: #### CBC #### [facility] [address] [address] [address] Kathy Rodriguez #0.0 103/ulNormal0.0-0.7The Doctors HospitalComment on above: Performed By: #### CBC #### [facility] [address] [address] [address] Kathy Hollandosinophils/100 WBC (Bld)0.1 %Critically low0.9-7.0The Doctors HospitalComment on above:Performed By: #### CBC #### [facility] [address] [address] [address] Kathy Hollandrythrocyte distribution width (RBC) [Ratio]12.9 %Gbsnsu00.0-15.0 The Doctors HospitalComment on above:Performed By: #### CBC #### [facility] [address] [address] [address] Kathy ChangHematocrit (Bld) [Volume fraction]47.6 %Sfapdq01.0-54.0The Doctors HospitalComment on above:Performed By: #### CBC #### [facility] [address] [address] [address] Kathy ChangHemoglobin (Bld) [Mass/Vol]16.1 g/bFNmopmn18.0-18.0The Doctors HospitalComment on above:Performed By: #### CBC #### [facility] [address] [place] [address] Dr. Kathy Coleman #0.07 10e3/ulCritically high0.00-0.03[facility] Comment on above:Performed By: #### CBC #### [facility] [address] [place] [address] Dr. Kathy Coleman %0.4 %Normal0.0-0.5The Doctors HospitalComment on above: Performed By: #### CBC #### [facility] [address] [place] [address] Dr. Kathy Jain #1.0 103/ulCritically low1.2-3.8[facility] Comment on above:Performed By: #### CBC #### [facility] [address] [place] [address] Dr. Kathy Herrerahocytes/100 WBC (Bld)6.0 %Critically low20.5-60.0The Doctors HospitalComment on above:Performed By: #### CBC #### [facility] [address] [place] [address] Dr. Kathy CanadaUAL DIFF REQNONormalThe Doctors HospitalComment on above: Performed By: #### CBC #### [facility] [address] [place] [address] Dr. Kathy Aguilar (RBC) [Entitic mass]32.8 joPipbev01.9-34.0The Doctors HospitalComment on above:Performed By: #### CBC #### [facility] [address] [place] [address] Dr. Kathy Aguilar (RBC) [Mass/Vol]33.8 g/lQSxdiql02.9-35.2The Doctors HospitalComment on above:Performed By: #### CBC #### [facility] [address] [place] [address] Dr. Kathy Jansen (RBC) [Entitic vol]96.9 fLCritically high80.0-94.0The Doctors HospitalComment on above:Performed By: #### CBC #### [facility] [address] [place] [address] Dr. Kathy Oreilly #0.8 103/ulNormal0.3-0.8The Doctors HospitalComment on above:Performed By: #### CBC #### [facility] [address] [place] [address] Dr. Kathy Parkerocytes/100 WBC (Bld)5.1 %Normal1.7-12.0[facility] Comment on above:Performed By: #### CBC #### [facility] [address] [place] [address] Dr. Kathy Kennedy #13.9 103/ulCritically high1.4-6.5[facility] Comment on above:Performed By: #### CBC #### [facility] [address] [place] [address] Dr. Kathy Jean Baptisteutrophils/100 WBC (Bld)88.2 %Critically high43.0-75.0The Doctors HospitalComment on above:Performed By: #### CBC #### [facility] [address] [place] [address] Dr. Kathy Del Angellet mean volume (Bld) [Entitic vol]9.2 fLCritically low 9.5-13.5The Doctors HospitalComment on above:Performed By: #### CBC #### [facility] [address] [place] [address] Dr. Kathy KingT190 103/qoHucaoj307-728Foo Doctors HospitalComment on above: Performed By: #### CBC #### [facility] [address] [place] [address] Dr. Kathy ChangRBC4.91 106/ulNormal4.70-6.10The Doctors HospitalComment on above:Performed By: #### CBC #### [facility] [address] [place] [address] Dr. Kathy ChangWBC15.8 103/ulCritically high4.0-11.0The Doctors HospitalComment on above:Performed By: #### CBC #### [facility] [address] [place] [address] Dr. Kathy ChangPROF CHEM 8 (BAS METB)on 74-81-6354Vzjep gap [Moles/Vol]13.4 mmol/LNormalThe Doctors HospitalComment on above:Performed By: #### BMP #### [facility] [address] [place] [address] Dr. Kathy ChangCalcium [Mass/Vol]9.2 mg/dLNormal8.5-10.1[facility] Comment on above:Performed By: #### BMP #### [facility] [address] [place] [address] Dr. Kathy ChangChloride [Moles/Vol]100 mmol/UUkyppn83-428Ryf [facility] Comment on above:Performed By: #### BMP #### [facility] [address] [place] [address] Dr. Kathy ChangCO2 [Moles/Vol]30.3 mmol/RKbzvdp75.0-32.0[facility] Comment on above:Performed By: #### BMP #### [facility] [address] [place] [address] Dr. Kathy ChangCreatinine [Mass/Vol]1.01 mg/dLNormal0.70-1.30The Doctors HospitalComment on above:Performed By: #### BMP #### [facility] [address] [place] [address] Dr. Kathy HollandGFR-AF TRISTANIAN>60Normal>=60The Doctors HospitalComment on above:Performed By: #### BMP #### [facility] [address] [place] [address] Dr. Kathy HollandGFR-NON AF TRISTANIAN>60Normal>=60The Doctors HospitalComment on above:Performed By: #### BMP #### [facility] [address] [place] [address] Dr. Kathy ChangGlucose [Mass/Vol]109 mg/dLCritically krua46-541Rwi Doctors HospitalComment on above:Performed By: #### BMP #### [facility] [address] [place] [address] Dr. Kathy ChangPotassium [Moles/Vol]4.7 mmol/LNormal3.5-5.1[facility] Comment on above:Performed By: #### BMP #### [facility] [address] [place] [address] Dr. Kathy Burtdium [Moles/Vol]139 mmol/NAvvxmz554-198JotVeterans Health Administration Comment on above:Performed By: #### BMP #### [facility] [address] [place] [address] Dr. Kathy ChangUrea nitrogen [Mass/Vol]19.0 mg/dLCritically high7.0-18.0The Doctors HospitalComment on above:Performed By: #### BMP #### [facility] [address] [place] [address] Dr. Kathy White nitrogen/Creatinine [Mass ratio]18.8 mg/mgNormalThe Doctors HospitalComment on above:Performed By: #### BMP #### [facility] [address] [place] [address] Dr. Kathy Kaur AUTO DIFFon 57-94-2551EXDB #0.0 103/ulNormal0.0-0.1The Doctors HospitalComment on above:Performed By: #### CBC #### [facility] [address] [place] [address] Dr. Kathy ChangBajuliophils/100 WBC (Bld)0.5 %Normal0.2-2.0[facility] Comment on above:Performed By: #### CBC #### [facility] [address] [place] [address] Dr. Kathy Rodriguez #0.2 103/ulNormal0.0-0.7The Doctors HospitalComment on above: Performed By: #### CBC #### [facility] [address] [place] [address] Dr. Kathy Hollandosinophils/100 WBC (Bld)2.6 %Normal0.9-7.0[facility] Comment on above:Performed By: #### CBC #### [facility] [address] [place] [address] Dr. Kathy Hollandrythrocyte distribution width (RBC) [Ratio]12.6 %Enzqge79.0-15.0 The Doctors HospitalComment on above:Performed By: #### CBC #### [facility] [address] [place] [address] Dr. Kathy ChangHematocrit (Bld) [Volume fraction]50.6 %Pqktir62.0-54.0The Doctors HospitalComment on above:Performed By: #### CBC #### [facility] [address] [place] [address] Dr. Kathy ChangHemoglobin (Bld) [Mass/Vol]17.3 g/kODajjcu57.0-18.0The Doctors HospitalComment on above:Performed By: #### CBC #### [facility] [address] [place] [address] Dr. Kathy Coleman #0.08 10e3/ulCritically high0.00-0.03[facility] Comment on above:Performed By: #### CBC #### [facility] [address] [place] [address] Dr. Kathy Coleman %0.9 %Critically high0.0-0.5The Doctors HospitalComment on above:Performed By: #### CBC #### [facility] [address] [place] [address] Dr. Kathy HerreraH #1.8 103/ulNormal1.2-3.8The Doctors HospitalComment on above:Performed By: #### CBC #### [facility] [address] [place] [address] Dr. Kathy Croninmphocytes/100 WBC (Bld)20.9 %Xubrpd20.5-60.0The Doctors HospitalComment on above:Performed By: #### CBC #### [facility] [address] [place] [address] Dr. Kathy Borja DIFF REQNONormalThe Doctors HospitalComment on above: Performed By: #### CBC #### [facility] [address] [place] [address] Dr. Kathy Aguilar (RBC) [Entitic mass]33.1 pjRbjjrq14.9-34.0The Doctors HospitalComment on above:Performed By: #### CBC #### [facility] [address] [place] [address] Dr. Kathy Aguilar (RBC) [Mass/Vol]34.2 g/pCAnfhuq78.9-35.2The Doctors HospitalComment on above:Performed By: #### CBC #### [facility] [address] [place] [address] Dr. Kathy Aguilar (RBC) [Entitic vol]96.9 fLCritically high80.0-94.0The Doctors HospitalComment on above:Performed By: #### CBC #### [facility] [address] [place] [address] Dr. Kathy Oreilly #0.6 103/ulNormal0.3-0.8The Doctors HospitalComment on above:Performed By: #### CBC #### [facility] [address] [place] [address] Dr. Kathy Parkerocytes/100 WBC (Bld)6.7 %Normal1.7-12.0[facility] Comment on above:Performed By: #### CBC #### [facility] [address] [place] [address] Dr. Kathy Kennedy #6.0 103/ulNormal1.4-6.5The Doctors HospitalComment on above:Performed By: #### CBC #### [facility] [address] [place] [address] Dr. Kathy Jean Baptisteutrophils/100 WBC (Bld)68.4 %Wrqweq25.0-75.0The Doctors HospitalComment on above:Performed By: #### CBC #### [facility] [address] [place] [address] Dr. Kathy ChangPlatelet mean volume (Bld) [Entitic vol]9.0 fLCritically low 9.5-13.5The Doctors HospitalComment on above:Performed By: #### CBC #### [facility] [address] [place] [address] Dr. Kathy ChangPLT200 103/xpFmbbfa330-316Fpl Doctors HospitalComment on above: Performed By: #### CBC #### [facility] [address] [place] [address] Dr. Kathy ChangRBC5.22 106/ulNormal4.70-6.10The Doctors HospitalComment on above:Performed By: #### CBC #### [facility] [address] [place] [address] Dr. Kathy ChangWBC8.7 103/ulNormal4.0-11.0The Doctors HospitalComment on above: Performed By: #### CBC #### [facility] [address] [place] [address] Dr. Kathy BruceID PROFILEon 89-52-5768QYGC-HDL RATIO NORMSEE [facility] HospitalComment on above:Result Comment: 3.3 - 4.4 LOW RISK 4.4 - 7.1 AVERAGE RISK 7.1 - 11.0 MODERATE RISK >11.0 HIGH RISKPerformed By: #### CMP, LIPID #### [facility] [address] [place] [address] Dr. Kathy ChangCholesterol [Mass/Vol]145 mg/dLNormal<=200[facility] Comment on above:Performed By: #### CMP, LIPID #### [facility] [address] [place] [address] Dr. Kathy ChangCholesterol in HDL [Mass/Vol]50 mg/pEIaugan77-60Lge Doctors HospitalComment on above:Performed By: #### CMP, LIPID #### [facility] [address] [place] [address] Dr. Kathy ChangCholesterol in LDL [Mass/Vol]83.8 mg/dLAdena Pike Medical CenterComment on above:Performed By: #### CMP, LIPID #### [facility] [address] [place] [address] Dr. Kathy Mathis.total/Cholesterol in HDL [Mass ratio]2.9 {ratio} NormalThe Doctors HospitalComment on above:Performed By: #### CMP, LIPID #### [facility] [address] [place] [address] Dr. Kathy Forrester NORMAL> or = 60 mg/dl - LOW CARDIOVASCULAR RISK <40 mg/dl - HIGH CARDIOVASCULAR RISKNoCleveland Clinic Hillcrest HospitalComment on above:Performed By: #### CMP, LIPID #### [facility] [address] [place] [address] Dr. Kathy Rudd CALC NORMALSEE BELOWNoCleveland Clinic Hillcrest HospitalComment on above:Result Comment: <100 mg/dl OPTIMAL 100 - 129 mg/dl NEAR OR ABOVE OPTIMAL 130 - 159 mg/dl BORDERLINE HIGH 160 - 189 mg/dl HIGH >190 mg/dl VERY HIGH Performed By: #### CMP, LIPID #### [facility] [address] [place] [address] Dr. Kathy ChangTriglyceride [Mass/Vol]56 mg/dLNormal<=150[facility] Comment on above:Performed By: #### CMP, LIPID #### [facility] [address] [place] [address] Dr. Kathy ChangVLDL CALC11.2 mg/dLNoCleveland Clinic Hillcrest HospitalComment on above: Performed By: #### CMP, LIPID #### [facility] [address] [place] [address] Dr. Kathy ChangPROF 14(COMP METB)on 34-29-2335Fzftiyd [Mass/Vol]4.2 g/dLNormal 3.4-5.0The Doctors HospitalComment on above:Performed By: #### CMP, LIPID #### [facility] [address] [address] [address] Kathy ChangAlbumin/Globulin [Mass ratio]1.4 {ratio}NormalThe Doctors HospitalComment on above:Performed By: #### CMP, LIPID #### [facility] [address] [address] [address] Kathy Rincon [Catalytic activity/Vol]88 U/IJjvnun48-747Gsq Doctors HospitalComment on above:Performed By: #### CMP, LIPID #### [facility] [address] [address] [address] Kathy Hussein [Catalytic activity/Vol]26 U/LNepnre49-39Bxw Doctors HospitalComment on above:Performed By: #### CMP, LIPID #### [facility] [address] [address] [address] Kathy Baumannon gap [Moles/Vol]8.8 mmol/LNormalThe Doctors HospitalComment on above:Performed By: #### CMP, LIPID #### [facility] [address] [address] [address] Kathy Garrett [Catalytic activity/Vol]17 U/KLfwpap64-10[facility] on above:Performed By: #### CMP, LIPID #### [facility] [address] [address] [address] Kathy ChangBilirubin [Mass/Vol]0.7 mg/dLNormal0.2-1.0[facility] Comment on above:Performed By: #### CMP, LIPID #### [facility] [address] [address] [address] Kathy ChangCalcium [Mass/Vol]9.8 mg/dLNormal8.5-10.1[facility] Comment on above:Performed By: #### CMP, LIPID #### [facility] [address] [address] [address] Kathy ChangChloride [Moles/Vol]103 mmol/FAsobhh96-506Ovf [facility] Comment on above:Performed By: #### CMP, LIPID #### [facility] [address] [address] [address] Kathy ChangCO2 [Moles/Vol]32.3 mmol/LCritically high21.0-32.0The Doctors HospitalComment on above:Performed By: #### CMP, LIPID #### [facility] [address] [place] [address] Dr. Kathy ChangCreatinine [Mass/Vol]0.97 mg/dLNormal0.70-1.30The Doctors HospitalComment on above:Performed By: #### CMP, LIPID #### [facility] [address] [place] [address] Dr. Kathy HollandGFR-AF TRISTANIAN>60Normal>=60The Doctors HospitalComment on above:Performed By: #### CMP, LIPID #### [facility] [address] [place] [address] Dr. Kathy HollandGFR-NON AF TRISTANIAN>60Normal>=60The Doctors HospitalComment on above:Performed By: #### CMP, LIPID #### [facility] [address] [place] [address] Dr. Kathy ChangGlobulin (S) [Mass/Vol]3.1 g/dLNormalThe Doctors HospitalComment on above:Performed By: #### CMP, LIPID #### [facility] [address] [place] [address] Dr. Kathy ChangGlucose [Mass/Vol]111 mg/dLCritically fjkg76-520Qgv Doctors HospitalComment on above:Performed By: #### CMP, LIPID #### [facility] [address] [place] [address] Dr. Kathy ChangPotassium [Moles/Vol]5.1 mmol/LNormal3.5-5.1[facility] Comment on above:Performed By: #### CMP, LIPID #### [facility] [address] [place] [address] Dr. Kathy ChangProtein [Mass/Vol]7.3 g/dLNormal6.4-8.2[facility] Comment on above:Performed By: #### CMP, LIPID #### [facility] [address] [address] [address] Kathy ChangSodium [Moles/Vol]139 mmol/ZMtafww570-312Bjm [facility] Comment on above:Performed By: #### CMP, LIPID #### [facility] [address] [address] [address] Kathy White nitrogen [Mass/Vol]20.0 mg/dLCritically high7.0-18.0The Doctors HospitalComment on above:Performed By: #### CMP, LIPID #### [facility] [address] [address] [address] Kathy White nitrogen/Creatinine [Mass ratio]20.6 mg/mgNormalThe Doctors HospitalComment on above:Performed By: #### CMP, LIPID #### [facility] [address] [address] [address] Kathy ChangCT CHEST WO CONon 69-61-1987NV CHEST WO CONEXAMINATION: CT CHEST WO CON HISTORY: Lung field abnormal ; [...] Electronically authenticated by: MUNIR GARCIA Date: 2022-06-16 15:46NoCleveland Clinic Hillcrest HospitalCT CHEST WO CONon 53-05-5731CL CHEST WO CONEXAMINATION: CT CHEST WO CON HISTORY: Lung field abnormal ; [...] Electronically authenticated by: MUNIR GARCIA Date: 2021-12-14 11:09A[facility] Medical CenterCardiovascular Lab Reporton [id number] Lab Report [facility] Patient Name: Pawan Bustillo [facility] MR #: [id number] Physician: Chavo Santana, Department of M.D. Medicine Service Date: 06/05/2019 Division of Birthdate: 1955 Cardiology Room #: [facility] Cardiovascular Services [facility] [address] [place] [address] Cardiovascular Laboratory Report IMPRESSIONS: 1. Patent stent in the mid left anterior descending coronary artery. 2. 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 METHODS: After risks, benefits, and alternatives were explained, written informed consent was obtained. The patient was prepped and draped in usual sterile fashion over the right groin. Using 1% lidocaine solution, local infiltration anesthesia was achieved. Using a modified Seldinger technique, micropuncture kit, access of the right common femoral artery was obtained. A 6-[place]an 11 cm sheath was inserted without difficulty. Baseline femoral angiography was performed. Bilateral selective coronary angiography was performed using JL4 and JR4 catheters. After reviewing the images, it was elected to conclude the procedure. A 6-S[place] Leonean MynxGrip closure device was inserted however deployment [...] by: Chavo Santana M.D. 06/09/2019 11:50 A Cahvo Santana M.D. Date Dict: 06/05/2019/01:10 P/Chavo Santana M.D. Date Trans: 06/06/2019 03:46 A/natalee DN_JN:[id number] cc: Sancho Leroy M.D. [address] [place] [address] Vital Signs Date TimeVital SignValuePerforming VonxmionuWestfpkd69-38-0938 13:14-0400Body skwfyv470.34 cmKeaton Rico MD Work Phone: [phone]10-14-2025 13:14-0400 Body mass index (BMI) [Ratio]27.4 kg/g8IzgjotKeaton Rico MD Work Phone: [phone]10-14-2025 13:14-0400 Body hqfxybjtpnm05.3 [degF]Keaton Rico MD Work Phone: [phone]10-14-2025 13:14-0400 Body dzvmyb74.35 kgKeaton Rico MD Work Phone: [phone]10-14-2025 13:14-0400 Diastolic blood jexexrgz87 mm[Hg]Keaton Rico MD Work Phone: [facility]10-14-2025 13:14-0400 Heart hxcv303 /minKeaton Rico MD Work Phone: [phone]10-14-2025 13:14-0400 SaO2% (BldA) [Mass fraction]86 %Keaton Rico MD Work Phone: [phone] [place], [place] 9788410-14-2025 13:14-0400 Systolic blood xdycnsxk657 mm[Hg]Keaton Rico MD Work Phone: [phone] [place], [place] 9788408-25-2025 12:15-0400 Body opsqpk901.34 cmKeaton Rico MD Work Phone: [phone] [place], [place] 9788408-25-2025 12:15-0400 Body mass index (BMI) [Ratio]27.5 kg/e5QpzdmfKeaton Rico MD Work Phone: [phone] [place], [place] 9788408-25-2025 12:15-0400 Body vendjliahgz45.3 [degF]Keaton Rico MD Work Phone: [phone] [place], [place] 9788408-25-2025 12:15-0400 Body wtelsq87.58 kgKeaton Rico MD Work Phone: [phone] [place], [place] 9788408-25-2025 12:15-0400 Diastolic blood mm[Hg]Keaton Rico MD Work Phone: [phone] [place], [place] 9788408-25-2025 12:15-0400 Heart rate70 /Lenore Rico MD Work Phone: [phone] [place], [place] 9788408-25-2025 12:15-0400 Respiratory rate19 /Lenore Rico MD Work Phone: [phone] [place], [place] 9788408-25-2025 12:15-0400 SaO2% (BldA) [Mass fraction]98 %Keaton Rico MD Work Phone: [phone] [place], [place] 9788408-25-2025 12:15-0400 Systolic blood sfzmcomk264 mm[Hg]Keaton Rico MD Work Phone: [phone] [place], [place] 9788402-04-2025 13:29-0500 Body .1 [degF]Keaton Rico MD Work Phone: [phone]02-04-2025 13:29-0500 Diastolic blood mklykrdy91 mm[Hg]Keaton Rico MD Work Phone: [phone] [place], [place] 9788402-04-2025 13:29-0500 Heart rate90 /Lenore Rico MD Work Phone: [phone] [place], [place] 9788402-04-2025 13:29-0500 SaO2% (BldA) [Mass fraction]90 %Keaton Rico MD Work Phone: [phone] [place], [place] 9788402-04-2025 13:29-0500 Systolic blood ddewlknr660 mm[Hg]Keaton Rico MD Work Phone: [phone] [place], [place] 9788412-30-2024 14:38-0500 Body sbgnuj443.34 cmKeaton Rico MD Work Phone: [phone] [place], [place] 9788412-30-2024 14:38-0500 Body mass index (BMI) [Ratio]28.1 kg/v7NrwlzbKeaton Rico MD Work Phone: [phone] [place], [place] 9788412-30-2024 14:38-0500 Body idnrzmuleot176.2 [degF]Keaton Rico MD Work Phone: [phone] [place], [place] 9788412-30-2024 14:38-0500 Body izvsqw13.62 kgKeaton Rico MD Work Phone: [phone] [address] [place], [place] 9788412-30-2024 14:38-0500 Diastolic blood wxocnqjc61 mm[Hg]Keaton Rico MD Work Phone: [phone] [place], [place] 9788412-30-2024 14:38-0500 Heart syjc728 /Lenore Rico MD Work Phone: [phone])[address] [place], [place] 9788412-30-2024 14:38-0500 SaO2% (BldA) [Mass fraction]89 %Keaton Rico MD Work Phone: [phone])[address]12-30-2024 14:38-0500 Systolic blood yyeexspz435 mm[Hg]Keaton Rico MD Work Phone: [phone])[address]06-18-2024 12:51-0400 Body ozwrfs189.34 cmMD Keaton Rico Work Phone: [phone]06-18-2024 12:51-0400 Body mass index (BMI) [Ratio]25.8 kg/m2MD Keaton Rico Work Phone: [phone]06-18-2024 12:51-0400 Body anayrrazupl02.8 [degF]MD Keaton Rcio Work Phone: [phone])[address]06-18-2024 12:51-0400 Body qrxuaz06 kgMD Keaton Rico Work Phone: [phone])[address]459 [address]06-18-2024 12:51-0400 Diastolic blood uptjldka10 mm[Hg]MD Keaton Rico Work Phone: [phone]06-18-2024 12:51-0400 Heart rate66 /minMD Keaton Rico Work Phone: [phone] [address]06-18-2024 12:51-0400 Respiratory rate16 /minMD Keaton Rico Work Phone: [phone] [address]06-18-2024 12:51-0400 SaO2% (BldA) [Mass fraction]98 %MD Keaton Rico Work Phone: [phone]06-18-2024 12:51-0400 Systolic blood mm[Hg]MD Keaton Rico Work Phone: [phone]02-17-2024 08:00-0500 Body qjjyjrzxyup33.9 [degF]MD Keaton Rico Work Phone: [phone]02-17-2024 08:00-0500 Diastolic blood tmgrwyfx34 mm[Hg]MD Keaton Rico Work Phone: [phone])[address]359 [address]02-17-2024 08:00-0500 Heart rate94 /minMD Keaton Rico Work Phone: [facility]02-17-2024 08:00-0500 Respiratory rate20 /minMD Keaton Rico Work Phone: [phone]02-17-2024 08:00-0500 SaO2% (BldA) [Mass fraction]88 %MD Keaton Rico Work Phone: [phone]02-17-2024 08:00-0500 Systolic blood hvijalfr502 mm[Hg]MD Keaton Rico Work Phone: [phone]02-17-2024 07:26-0500 Inhaled oxygen flow rate1 L/minMD Keaton Rico Work Phone: 1(532)257-[address] [place], [place] 8001402-17-2024 06:00-0500 Body xwjdah64.5 kgMD Keaton Rico Work Phone: 1([phone])305-[address] [place], [place] 8001402-15-2024 15:35-0500 Body .34 cmMD Keaton Rico Work Phone: [phone]02-12-2024 12:00-0500 Body .8 cmTom Schroeder Other [employer] Other 02-12-2024 12:00-0500Body mass index (BMI) [Ratio] 27.12 kg/y2XokhnuqTom Schroeder Other [employer] Other 02-12-2024 12:00-0500Body qveutnysvog43.3 [degF] [facility]eder Other [facility] Other 02-12-2024 12:00-0500Body sirvai78.73 kgTom Schroeder Other [facility] Other 02-12-2024 12:00-0500Diastolic blood aglgacql96 mm[Hg] Tom Schroeder Other [facility] [employer] Other 02-12-2024 12:00-7439MbE0% (BldA) [Mass fraction]92 % Tom Schroeder Other [facility] [employer] Other 02-12-2024 12:00-0500Systolic blood pucpbksi91 mm[Hg] Tom Hammresuzie Other [facility] [employer] Other 10-18-2023 18:15-0400Diastolic blood fovzvfga30 mm[Hg] MD Keaton Rico Work Phone: [phone]10-18-2023 18:15-0400 Heart rate70 /minMD Keaton Rico Work Phone: [phone]10-18-2023 18:15-0400 Respiratory rate16 /minMD Keaton Rico Work Phone: 1(653)248-[address] [place], [place] 8001410-18-2023 18:15-0400 SaO2% (BldA) [Mass fraction]91 %MD Keaton Rico Work Phone: [phone]10-18-2023 18:15-0400 Systolic blood kzxkmpif497 mm[Hg]MD Keaton Rico Work Phone: [phone]10-18-2023 12:27-0400 Inhaled oxygen flow rate3 L/minMD Keaton Rico Work Phone: 1(002)930-[address] [place], [place] 8001410-18-2023 08:04-0400 Body vhmhjo993.88 cmMD Keaton Rico Work Phone: [phone]10-18-2023 08:04-0400 Body wenmex80.18 kgMD Keaton Rico Work Phone: [phone]10-16-2023 10:15-0400 Body eygbxb263.8 cmWilliamhemalatha Hammrer Other [employer] Other 10-16-2023 10:15-0400Body mass index (BMI) [Ratio] 27.12 kg/u1BskllsfTom Hammrer Other [employer] Other 10-16-2023 10:15-0400Body bkqwkdutpty15.8 [degF] Tom Elda Other [employer] Other 10-16-2023 10:15-0400Body .73 kgTom Hammrer Other [employer] Other 10-16-2023 10:15-0400Diastolic blood cfcldgog07 mm[Hg] Tom Schroeder Other [employer] Other 10-16-2023 10:15-7086UdT1% (BldA) [Mass fraction]96 % Tom Elda Other [employer] Other 10-16-2023 10:15-0400Systolic blood jlbefojv040 mm[Hg] Tom Schroeder Other [employer] Other 09-26-2023 11:45-0400Body xammzr950.8 cmMadie Honeycutt Other [employer] Other 09-26-2023 11:45-0400Body mass index (BMI) [Ratio] 27.12 kg/v3GykhrkMadie Honeycutt Other [employer] Other 09-26-2023 11:45-0400Body gpnyazlxasp53 [degF]Madie Honeycutt Other [employer] Other 09-26-2023 11:45-0400Body qxrutx40.73 kgMadie Honeycutt Other [employer] Other 09-26-2023 11:45-0400Diastolic blood duondzbr81 mm[Hg] Madie Honeycutt Other [employer] Other 09-26-2023 11:45-9849YrD1% (BldA) [Mass fraction]97 % Madie Honeycutt Other [employer] Other 09-26-2023 11:45-0400Systolic blood mm[Hg] Madie Honeycutt Other [employer] Other 05-25-2023 15:30-0400Body elrtgv617.8 cmKeaton Rico Other [employer] Other 05-25-2023 15:30-0400Body mass index (BMI) [Ratio] 27.12 kg/b1MjkpffKeaton Rico Other [employer] Other 05-25-2023 15:30-0400Body taavyfucsmo609 [degF]Keaton Rico Other [employer] Other 05-25-2023 15:30-0400Body xchuka33.73 kgKeaton Rico Other [employer] Other 05-25-2023 15:30-0400Diastolic blood odkwvfxb70 mm[Hg] Keaton Rico Other [employer] Other 05-25-2023 15:30-3156OqU0% (BldA) [Mass fraction]97 % Keaton Rico Other [employer] Other 05-25-2023 15:30-0400Systolic blood jbhmloaw166 mm[Hg] Keaton Rico Other [employer] Other 04-11-2023 11:15-0400Body yrvmlk479.8 cmKeaton Rico Other [employer] Other 04-11-2023 11:15-0400Body mass index (BMI) [Ratio] 26.54 kg/l6NordtwKeaton Rico Other [employer] Other 04-11-2023 11:15-0400Body otbguh81.92 kgKeaton Rico Other [employer] Other 04-11-2023 11:15-0400Diastolic blood qqfzwotv57 mm[Hg] Keaton Rico Other [employer] Other 04-11-2023 11:15-4926RoE0% (BldA) [Mass fraction]97 % Keaton Rico Other [employer] Other 04-11-2023 11:15-0400Systolic blood rwrloldf412 mm[Hg] Keaton Rico Other [employer] Other 09-19-2022 09:56-0400Respiratory rate16 /minPatrick [employer] [facility]10-11-2021 10:00-0400Body goecfa562.34 cmTom Schroeder Other [employer] Other 10-11-2021 10:00-0400Body mass index (BMI) [Ratio]25.8 kg/a5Izrccxn Buehrios Other [employer] Other 10-11-2021 10:00-0400Body wtrxfltfutf35.9 [degF] Tom Schroeder Other [employer] Other 10-11-2021 10:00-0400Body .92 kgTom Neffsuzie Other [employer] Other 10-11-2021 10:00-0400Diastolic blood ddffxyrh64 mm[Hg] Tom Schroeder Other [employer] [facility] [employer] Other 10-11-2021 10:00-9416DwW6% (BldA) [Mass fraction]96 % Tom Schroeder Other [employer] Other 10-11-2021 10:00-0400Systolic blood hlpdyddb304 mm[Hg] Tom Schroeder Other [employer] Other Encounters Encounter DateEncounter TypeCare ProviderFacilityStart: 42-44-4265oclnqmgxkw Lorin X OrzechFacility:EU [place]vueStart: 05-14-2025 End: 97-87-7589qytdycmtboPxeerr E Braun MD Work Phone: [facility] Work Phone: Start: 05-14-2025 End: 25-00-6789Dsriffo encounter procedureKeaton Rico MD-[facility] Work Phone: Start: 04-04-2025 End: 31-87-9448hiikwyhhfxHcgnog X OrzechFacility:EU [place]Start: 04-04-2025 End: 73-72-2446Gxcdere encounter procedureA[place] X Orzech [facility] start: 03-25-2025 End: 05-52-2932jacjheqzhpFtdtuy E Braun MD Work Phone: [facility] Work Phone: Start: 03-25-2025 End: 02-08-4655Vollrbe encounter procedureTosha Jeff [facility] Work Phone: Start: 03-11-2025 End: 43-65-1073thqhezbqzkTCNBOO [facility] Start: 09-18-2024 End: 50-32-0680llmtcmipuvHGXPKQB [place] Start: 09-04-2024 End: 17-16-4223Pmgjuyh encounter procedureKeaton Rico MD Work Phone: [facility] V[facility] Surg Work Phone: Start: 09-04-2024 End: 99-96-0074gjcsguedatSoxqhh E Braun MD Work Phone: [facility] Work Phone: Start: 07-30-2024 End: 64-64-3557Eidhxfs encounter procedureKeaton Rico MD Work Phone: [facility] Work Phone: Start: 34-55-0669Extyjjw encounter Juanis Rico MD Work Phone: [facility]: 01-17-2024 End: 98-35-8239gjnwwwryweVU Marcia E Braun Work Phone: [facility] Work Phone: Start: 01-17-2024 End: 25-28-2661Ocliill encounter procedureMD Keaton Rico Work Phone: [facility] V[facility] Surgery Work Phone: Start: 10-20-2023 End: 57-03-2032Pkekcju encounter procedureMD Keaton Rico Work Phone: [facility] Work Phone: Start: 11-96-1418Sbb-patient / Non-visitMD Yee Rico Work Phone: [facility] Pulmonary Disease Work Phone: Start: 30-93-6627Lki-patient / Non-visitMD Keaton Rico Work Phone: [facility] Work Phone: Start: 09-14-2023 End: 18-60-4239Qadrucgypu and management of inpatientMD Keaton Rico Work Phone: [facility] [place] [facility] Work Phone: Start: 89-03-1760Iuheoy outpatient visit 25 minutes Tom Galeano Vascular SurgeryStart: 09-12-2023 End: 45-35-2362Emyqcgy encounter procedure Keaton Rico Work Phone: [facility] VascularStart: 09-12-2023 End: 66-15-2014iocqnztwzqHL Keaton Hernandes Rico Work Phone: [employer] Other Start: 06-13-2023 End: 69-53-8655rgpxlosjkyAkwefp Jacky Other [employer] Other Start: 33-42-2696Ibjqxtgqz encounterMarcia BraunFPG [facility]: 05-18-2023 End: 52-09-4715Zwibabgro to same day surgery centerMD Keaton Rico Work Phone: [facility]-Interventional Radiology Work Phone: Start: 05-18-2023 End: 84-95-1154oasdxazzpfWU Marcia E Braun Work Phone: [facility] Work Phone: Start: 05-16-2023 End: 86-68-3343zaizrcgixnMbiupnj Buehrer Other [employer] Other Start: 78-23-6773Xungkw outpatient visit 25 minutes Tom Esposito Vascular SurgeryStart: 05-02-2023 End: 89-96-4982Gqoxipk encounter procedure Keaton Rico Work Phone: [facility]-CT Scan [facility] [place] Work Phone: Start: 04-26-2023 End: 34-00-8411xltduzqwwvErfnhg Ruttino Other [employer] Other Start: 01-13-5614Pahnxds encounter procedureMadie Rios Vascular SurgeryStart: 02-14-2023 End: 57-61-7975xhplpimzxwZwemtg Braun Other [employer] Other Start: 78-62-8748Nrfsghjyu encounterKeaton Santiago [facility]tart: 12-23-2022 End: 63-81-2018hgdykfkoypOshtag Braun Other [employer] Other Start: 55-48-6506Npnozu outpatient visit 15 minutes Keaton Santiago [facility]tart: 11-12-2022 End: 23-68-2440ouftzuzmqnQneiwq Braun Other [employer] Other Start: 85-80-7814Iseyheyll encounterKeaton Colin [facility]: 11-09-2022 End: 13-32-9850vhxxtwfkohQicvzi Jacky Other [employer] Other Start: 30-35-5117Wufuxp outpatient visit 15 minutes Keaton RicoDennis [facility] Hospitaltart: 67-56-9338Jvxuxvyyr for other preprocedural examinationMOHAMAD ANNAAshtabula County Medical Centertart: 11-01-2022 End: 77-77-8929llhkngjlopAJ KEATON RICOFacility:B3Ubrme: 11-01-2022 End: 06-51-4751Impscyfsz for other preprocedural examinationDR KEATON RICO Facility:A9Shkuw: 10-29-2022 End: 68-42-2937fecefcyucjEzzpgz Braun Other [employer] Other Start: 55-30-2798Aglrhmuds encounterKeaton Santiago [facility] Hospitaltart: 10-18-2022 End: 40-72-6978Pdepccy encounter procedureMaritza Balderas CAGLE [facility] start: 09-28-2022 End: 93-10-1824qvijhocmtuMA MISCFacility:R4Onfqy: 06-16-2022 End: 09-41-8602bowjkibjxzTE KEATON RICOFacility:G1Trtcy: 04-19-2022 End: 06-38-9447Zolplur encounter procedurePasari CAGLE [facility] start: 01-19-2022 End: 20-42-3549Asuohdz encounter procedurePasari Balderas CAGLE [facility] Start: 12-14-2021 End: 31-02-8513iuixmjvigtGN KEATON RICOFacility:J8Fktwp: 68-24-0930Nivetzaeo encounterTom NeffKindred Hospital [facility] Vascular SurgeryStart: 67-57-0945TTVF visit new patientJehemalatha OteroEast [facility] Vascular SurgeryStart: 06-05-2019 End: 90-02-2027Slkcnyv encounter procedureEHAB A ELTAHAWYFacility:[facility] Procedures DateProcedureProcedure DetailPerforming ClinicianStart: 40-34-2273BE Heart TransthoracicAurora Staci Start: 64-69-2609Nbbhk brachial pressure indexKeaton Rico MD Work Phone: Start: 57-73-4200Wevje brachial pressure indexMD Keaton Rico Work Phone: Start: 66-65-5078Jhbeh chest X-rayMD Keaton Rico Work Phone: Start: 37-46-9639XrekmkbncvuYZ Keaton Rico Work Phone: Start: 07-00-4274XpugkzhihvhFF Keaton Rico Work Phone: Start: 42-55-3922JupvgqagbbpNM Marcia Braun Work Phone: Start: 28-71-4181Skkbajgh screenSan Antoniocarlos [facility]inte Hospitalomment on above:Result Comment: PERFORMED BY: [facility] [place] [address] PATHOLOGIST GAS REFRIGERATOR SERVICER JOLIE MASON M.D.Start: 52-96-0607CA Angiogram w/TLA/Stent Right Leg (Right)MD Keaton Rico Work Phone: Start: 41-27-8601Hfmdo brachial pressure indexMD Keaton Rico Work Phone: Start: 74-80-0153Plvygj scan of lower limb arteriesMD Keaton Rico Work Phone: Start: 33-16-0631Loshw limb angiographyMD Keaton Rico Work Phone: Start: 90-15-3826QD of abdominal aorta with contrastMD Keaton Rico Work Phone: Start: 07-18-0251OLH screeningDR KEATON RICOComment on above:Performed By: #### [facility] #### [facility] [address] [place] [address] Dr. Kathy ChangStart: 32-68-9192ZvbhdtrgzlRqkjswo CAGLE Start: 00-92-6217Blfpdbiqnk studiesPaOneMln CAGLE Herniated structure (morphologic abnormality)Maritza CAGLE Plan of Treatment DateCare ActivityDetailAuthorStart: 97-74-5500Kxbarxx referralP[facility] Work Phone: Start: 85-79-5279WqnnfycrylzgMlgqmxbocAdena Regional Medical Centertart: 34-66-2728AbzwzzbyzAdena Regional Medical Centertart: 46-29-7640Hoqofve endarterectomyOR Fem-Fem/Fem Endart/Patch Graft (Right) [facility]art: 19-60-2914Emsnkwgy admissionAdena Regional Medical Centertart: 05-67-4855GpdxyqjsfAvita Health SystemAnkle brachial pressure indexAvita Health SystemAnkle brachial pressure indexAvita Health SystemPatient EducationMercy Health St[facility] Work Phone: Patient referralMer[facility] Health St[facility] Work Phone: Immunizations Immunization DateImmunizationNotesCare EzegvaflOtsqnixg48-46-1859LZUM-SnO-5 (COVID-19) mRNA BNT-162b2 vaxMaritza CAGLE [facility] CenterComment on above:Result Comment: 2022-10-14: [id number] Jayleen Perkins (Pfizer)MD Keaton Rico Work Phone: [facility]04-12-2021COVID-19 mRNA, Jayleen (Pfizer)MD Keaton Rico Work Phone: [facility]04-09-2021SARS-CoV-2 (COVID-19) Ad26 vaccine, recombinantPatrick CAGLE [facility]03-30-2021SARS-CoV-2 (COVID-19) mRNA BNT-162b2 vaxPatrick CAGLE [facility]03-12-2021SARS-CoV-2 (COVID-19) Ad26 vaccine, recombinantPatrick CAGLE [facility]03-08-2021SARS-CoV-2 (COVID-19) mRNA BNT-162b2 vaxPatrick CAGLE [facility]02-25-1998Hep A, unspecified formulationPatrick CAGLE [facility]02-25-1998hepatitis B vaccine, adult dosagePatrick CAGLE [facility]07-30-1997hepatitis B vaccine, adult dosagePatrick CAGLE [facility]06-24-1997Hep A, unspecified formulationPatrick CAGLE [facility]06-24-1997hepatitis B vaccine, adult dosagePatrick CAGLE [facility]06-24-1997Td(adult) unspecified formulationPatrick CAGLE [facility] DatePayer CategoryPayerPolicy ID01-01-2025Medicare [id number] [id number] 2.840.1.491284.3.57[id number] 2.840.1.834883.3.57[id number] 2.840.1.952295.3.57[id number] 2.840.1.662694.3.57[id number] 2.840.1.048902.3.57[id number] 2.840.1.544156.3.57[id number] 2.840.1.107983.3.57[id number] 2.16840.1.1[id number] 2.16840.1.158502.3.579.2.531 [id number] 2.16840.1.3[id number] 2.16840.1.6[id number] 2.16.840.1.536126.3.579.2.531 Social History DateTypeDetailFacilityStart: 12-21-2021 End: 80-78-5043Weqlcse smoking statusHeavy tobacco smoker (finding)[facility] [employer] Other Start: 64-47-0371Erz Assigned At [facility] [employer] Other Start: 05-18-2023 End: 72-60-7831Zqmyukx smoking status NHISSmoker (finding)[facility]art: 44-71-5355Krw Assigned At [facility]: 10-11-2023 End: 38-54-3141Ayjqqrx smoking status NHISEx-smoker (finding)[facility]art: 76-65-1257FysVnumjay sex unknown (finding)[facility] Centertart: 84-69-9183BlwQths (finding)[facility] Centerexual OrientationExecutive [facility] Medical Equipment Procedure CodeEquipment CodeEquipment Original TextEquipment IdentifierDates Angiogram, lower extremity, leftMultiple peripheral artery stent, bare-metal ([id number] FDAStart: 36-51-1786Ljumojlwz, lower extremity, leftMultiple peripheral artery stent, bare-metal (01)[id number] FDAStart: 63-40-2979Inohzupfq, for thrombolysis follow-upMultiple peripheral artery stent, bare-metal (01)[id number] FDAStart: 95-68-7012Nyqgxvpok, for thrombolysis follow-upMultiple peripheral artery stent, bare-metal ()[id number] FDAStart: 47-85-9184Ukkzsspt peripheral artery stent, bare-metal()[id number] FDAStart: 52-93-2543Vgtkvsye peripheral artery stent, bare-metal ()[id number] FDAStart: 53-00-4630Vgcovcsx peripheral artery stent, bare-metal()[id number] FDAStart: 05-21-2021 Goals DatePatient GoalDesired Activity/State Functional Status WponExjnrehwkfVvuzftKbrarfwu23-93-8024Muobxhymwl statusPatient at Baseline [facility] Work Phone: [phone]vkfkt StatusN/AExecutive [facility]rology of [facility] Ogrpxoup96-15-3457Zaciurldiw StatusN/AFMadison Health Mental Status MsbbJmkqnetsgyXibqyxZtaenbri62-59-4274Sjdbnbeqd functionCognitive Status [facility] Work Phone: Clinical Notes 05-11-2021 to 04-04-2025 Note Date & CiuyBgrdApncebva22-41-7622 Hospital Discharge instructions Patient Education 04/04/2025 16:13:00 Prostatitis Prostatitis Prostatitis is swelling or inflammation of the prostate gland, also called the prostate. This glandis about 1.5 inches wide and 1 inch high, and it is involved in making semen. The prostate is located below a man's bladder, in front of the rectum. There are four types of prostatitis: Chronic prostatitis (CP), also called chronic pelvic pain syndrome (CPPS). This is the most common type of prostatitis. It is associated with increased muscle tone in the area between the hip bones (pelvic area), around the prostate. This type is also known as a pelvic floor disorder. Chronic bacterial prostatitis. This type usually results from an acute bacterial infection in the prostate gland that keeps coming back or has not been treated properly. The symptoms are less severe than those caused by acute bacterial prostatitis, which lasts a shorter time. Asymptomatic inflammatory prostatitis. This type does not have symptoms and does not need treatment. This is diagnosed when tests are done for other disorders of the urinary tract or reproductive tract. Acute bacterial prostatitis. This type starts quickly and results from an acute bacterial infectionin the prostate gland. It is usually associated with a bladder infection, high fever, and chills. This is the least common type of prostatitis. What are the causes? Bacterial prostatitis is caused by an infection from bacteria. Chronic nonbacterial prostatitis may be caused by: Factors related to the nervous system. This system includes thebrain, spinal cord, and nerves. An autoimmune response. This happens when the body's disease-fighting system attacks healthy tissuein the body by mistake. Psychological factors. These have to do with how the mind works. The causes of the other types of prostatitis are usually not known. What are the signs or symptoms? Symptoms of this condition depend on the type of prostatitis you have. Acute bacterial prostatitis Symptoms may include: Pain or burning during urination. Frequent and sudden urges to urinate. Trouble starting to urinate. Fever. Chills. Pain in your muscles or joints, lower back, or lower abdomen. Other types of prostatitis Symptoms may include: Sudden urges to urinate, or urinating often. Trouble starting to urinate. Weak urine stream. Dribbling after urination. Discharge coming from the penis. Pain in the testicles, the penis, or the tip of the penis. Pain in the area in front of the rectum and below the scrotum (perineum). Pain when ejaculating. How is this diagnosed? This condition may be diagnosed based on: A physical and medical exam. A digital rectal exam. For this, the health care provider may use a finger to feel the prostate. A urine test to check for bacteria. A semen sample or blood tests. Ultrasound. Urodynamic tests to check how your body handles urine. Cystoscopy to look inside your bladder or inside the part of your body that drains urine from the bladder (urethra). How is this treated? Treatment for this condition depends on the type of prostatitis. Treatment may involve: Medicines to relieve pain or inflammation, or to help relax your muscles. Physical therapy. Heat therapy. Biofeedback. These techniques help you control certain body functions. Relaxation exercises. Antibiotic medicine, if your condition is caused by bacteria. Sitz baths. These warm water baths help to relax your pelvic floor muscles, which helps to relieve pressure on the prostate. Follow these instructions at home: Medicines Take srij-huq-rwyvocy and prescription medicines only as told by your health care provider. If you were prescribed an antibiotic medicine, take it as told by your health care provider. Do notstop using the antibiotic even if you start to feel better. Managing pain and swelling Take sitz baths as directed by your health care provider. For a sitz bath, sit in warm water that is deep enough to cover your hips and buttocks. If directed, apply heat to the affected area as often as told by your health care provider. Use theheat source that your health care provider recommends, such as a moist heat pack or a heating pad. ?Place a towel between your skin and the heat source. ?Leave the heat on for 20 30 minutes. ?Remove the heat if your skin turns bright red. This is especially important if you are unable to feel pain, heat, or cold. You may have a greater risk of getting burned. General instructions Do exercises as told by your health care provider, if you were prescribed physical therapy, biofeedback, or relaxation exercises. Keep all follow-up visits as told by your health care provider. This is important. Where to find more information [place] of Diabetes and Digestive and Kidney Diseases: https://www.niddk.nih.gov Contact a health care provider if: Your symptoms get worse. You have a fever. Get help right away if: You have chills. You feel light-headed or feel like you may faint. You cannot urinate. You have blood or blood clots in your urine. Summary Prostatitis is swelling or inflammation of the prostate gland. Treatment for this condition depends on the type of prostatitis. Take tbql-xne-jldocfy and prescription medicines only as told by your health care provider. Get help right away of you have chills, feel light-headed, feel like you may faint, cannot urinate,or have blood or blood clots in your urine. This information is not intended to replace advice given to you by your health care provider. Make sure you discuss any questions you have with your health care provider. Document Revised: 06/02/2023 Document Reviewed: 06/02/2023 [employer] Patient Education 2023 [employer]. 04/04/2025 16:12:59 Benign Prostatic Hyperplasia Benign Prostatic Hyperplasia Benign prostatic hyperplasia (BPH) is an enlarged prostate gland that is caused by the normal agingprocess. The prostate may get bigger as a man gets older. The condition is not caused by cancer. The prostate is a walnut-sized gland that is involved in the production of semen. It is located in front of the rectum and below the bladder. The bladder stores urine. The urethra carries stored urine ou t of the body. An enlarged prostate can press on the urethra. This can make it harder to pass urine. The buildup of urine in the bladder can cause infection. Back pressure and infection may progress to bladder damage and kidney (renal) failure. What are the causes? This condition is part of the normal aging process. However, not all men develop problems from thiscondition. If the prostate enlarges away from the urethra, urine flow will not be blocked. If it enlarges toward the urethra and compresses it, there will be problems passing urine. What increases the risk? This condition is more likely to develop in men older than 50 years. What are the signs or symptoms? Symptoms of this condition include: Getting up often during the night to urinate. Needing to urinate frequently during the day. Difficulty starting urine flow. Decrease in size and strength of your urine stream. Leaking (dribbling) after urinating. Inability to pass urine. This needs immediate treatment. Inability to completely empty your bladder. Pain when you pass urine. This is more common if there is also an infection. Urinary tract infection (UTI). How is this diagnosed? This condition is diagnosed based on your medical history, a physical exam, and your symptoms. Tests will also be done, such as: A post-void bladder scan. This measures any amount of urine that may remain in your bladder after you finish urinating. A digital rectal exam. In a rectal exam, your health care provider checks your prostate by putting a lubricated, gloved finger into your rectum to feel the back of your prostate gland. This exam detects the size of your gland and any abnormal lumps or growths. An exam of your urine (urinalysis). A prostate specific antigen (PSA) screening. This is a blood test used to screen for prostate cancer. An ultrasound. This test uses sound waves [...] severity of your condition. Treatment may include: Observation and yearly exams. This may be the only treatment needed if your condition and symptoms are mild. Medicines to relieve your symptoms, including: ?Medicines to shrink the prostate. ?Medicines to relax the muscle of the prostate. Surgery in severe cases. Surgery may include: ?Prostatectomy. In this procedure, the prostate tissue is removed completely through an open incision or with a laparoscope or robotics. ?Transurethral resection of the prostate (TURP). In this procedure, a tool is inserted through the opening at the tip of the penis (urethra). It is used to cut away tissue of the inner core of the prostate. The pieces are removed through the same opening of the penis. This removes the blockage. ?Transurethral incision (TUIP). In this procedure, small cuts are made in the prostate. This lessens the prostate's pressure on the urethra. ?Transurethral microwave thermotherapy (TUMT). This procedure uses microwaves to create heat. The heat destroys and removes a small amount of prostate tissue. ?Transurethral needle ablation (TUNA). This procedure uses radio frequencies to destroy and remove a small amount of prostate tissue. ?Interstitial laser coagulation (ILC). This procedure uses a laser to destroy and remove a small amount of prostate tissue. ?Transurethral electrovaporization (TUVP). This procedure uses electrodes to destroy and remove a small amount of prostate tissue. ?Prostatic urethral lift. This procedure inserts an implant to push the lobes of the prostate away from the urethra. Follow these instructions at home: Take iutp-nvx-irqmcow and prescription medicines only as told by your health care provider. Monitor your symptoms for any changes. Contact your health care provider with any changes. Avoid drinking large amounts of liquid before going to bed or out in public. Avoid or reduce how much caffeine or alcohol you drink. Give yourself time when you urinate. Keep all follow-up visits. This is important. Contact a health care provider if: You have unexplained back pain. Your symptoms do not get better with treatment. You develop side effects from the medicine you are taking. Your urine becomes very dark or has a bad smell. Your lower abdomen becomes distended and you have trouble passing urine. Get help right away if: You have a fever or chills. You suddenly cannot urinate. You feel light-headed or very dizzy, or you faint. There are large amounts of blood or clots in your urine. Your urinary problems become hard to manage. You develop moderate to severe low back or flank pain. The flank is the side of your body between the ribs and the hip. These symptoms may be an emergency. Get help right away. Call 911. Do not wait to see if the symptoms will go away. Do not drive yourself to the hospital. Summary Benign prostatic hyperplasia (BPH) is an enlarged prostate that is caused by the normal aging process. It is not caused by cancer. An enlarged prostate can press on the urethra. This can make it hard to pass urine. This condition is more likely to develop in men older than 50 years. Get help right away if you suddenly cannot urinate. This information is not intended to replace advice given to you by your health care provider. Make sure you discuss any questions you have with your health care provider. Document Revised: 02/03/2022 Document Reviewed: 02/03/2022 [employer] Patient Education 2023 [employer]. Follow Up Care 04/03/2025 09:06:46 With:XAVI Small APRN, FRANKLIN Metcalf, URL Address: When: Unknown Comments:2 mos w/ PSA [facility] 09-04-2025 NotePatient Education Infectious Disease Prostatitis Prostatitis is swelling or inflammation of the prostate gland, also called the prostate. This glandis about 1.5 inches wide and 1 inch high, and it is involved in making semen. The prostate is located below a man's bladder, in front of the rectum. There are four types of prostatitis: ??? Chronic prostatitis (CP), also called chronic pelvic pain syndrome (CPPS). This is the most common type of prostatitis. It is associated with increased muscle tone in the area between the hip bones (pelvic area), around the prostate. This type is also known as a pelvic floor disorder. ??? Chronic bacterial prostatitis. This type usually results from an acute bacterial infection in the prostate gland that keeps coming back or has not been treated properly. The symptoms are less severe than those caused by acute bacterial prostatitis, which lasts a shorter time. ??? Asymptomatic inflammatory prostatitis. This type does not have symptoms and does not need treatment. This is diagnosed when tests are done for other disorders of the urinary tract or reproductivetract. ??? Acute bacterial prostatitis. This type starts quickly and results from an acute bacterial infection in the prostate gland. It is usually associated with a bladder infection, high fever, and chills. This is the least common type of prostatitis. What are the causes? Bacterial prostatitis is caused by an infection from bacteria. Chronic nonbacterial prostatitis may be caused by: ??? Factors related to the nervous system. This system includes thebrain, spinal cord, and nerves. ??? An autoimmune response. This happens when the body's disease-fighting system attacks healthy tissue in the body by mistake. ??? Psychological factors. These have to do with how the mind works. The causes of the other types of prostatitis are usually not known. What are the signs or symptoms? Symptoms of this condition depend on the type of prostatitis you have. Acute bacterial prostatitis Symptoms may include: ??? Pain or burning during urination. ??? Frequent and sudden urges to urinate. ??? Trouble starting to urinate. ??? Fever. ??? Chills. ??? Pain in your muscles or joints, lower back, or lower abdomen. Other types of prostatitis Symptoms may include: ??? Sudden urges to urinate, or urinating often. ??? Trouble starting to urinate. ??? Weak urine stream. ??? Dribbling after urination. ??? Discharge coming from the penis. ??? Pain in the testicles, the penis, or the tip of the penis. ??? Pain in the area in front of the rectum and below the scrotum (perineum). ??? Pain when ejaculating. How is this diagnosed? This condition may be diagnosed based on: ??? A physical and medical exam. ??? A digital rectal exam. For this, the health care provider may use a finger to feel the prostate. ??? A urine test to check for bacteria. ??? A semen sample or blood tests. ??? Ultrasound. ??? Urodynamic tests to check how your body handles urine. ??? Cystoscopy to look inside your bladder or inside the part of your body that drains urine from the bladder (urethra). How is this treated? Treatment for this condition depends on the type of prostatitis. Treatment may involve: ??? Medicines to relieve pain or inflammation, or to help relax your muscles. ??? Physical therapy. ??? Heat therapy. ??? Biofeedback. These techniques help you control certain body functions. ??? Relaxation exercises. ??? Antibiotic medicine, if your condition is caused by bacteria. ??? Sitz baths. These warm water baths help to relax your pelvic floor muscles, which helps to relieve pressure on the prostate. Follow these instructions at home: Medicines ??? Take mrdf-mlu-qzhsijc and prescription medicines only as told by your health care provider. ??? If you were prescribed an antibiotic medicine, take it as told by your health care provider. Donot stop using the antibiotic even if you start to feel better. Managing pain and swelling ??? Take sitz baths as directed by your health care provider. For a sitz bath, sit in warm water that is deep enough to cover your hips and buttocks. ??? If directed, apply heat to the affected area as often as told by your health care provider. Usethe heat source that your health care provider recommends, such as a moist heat pack or a heating pad. ? Place a towel between your skin and the heat source. ? Leave the heat on for 20?30 minutes. ? Remove the heat if your skin turns bright red. This is especially important if you are unable to feel pain, heat, or cold. You may have a greater risk of getting burned. General instructions ??? Do exercises as told by your health care provider, if you were prescribed physical therapy, biofeedback, or relaxation exercises. ??? Keep all follow-up visits as told by your health care provider. This is important. (more content not included)...[facility]08-25-2025 Evaluation note* Diagnosis Onset Date Resolution Status Admit Date COPD with acute bronchitis acuteAugust 2024 11:58amCOPD with acute bronchitisacuteOctober 2024 1:08pm [facility] Work Phone: 1(578) 833-429008-11-2025 NoteUT [facility]iology [facility] Subjective Pawan Bustillo is a [...] abnormal Benign prostatic hyperplasia with urinary obstruction Krqqx-3-qclhwwbcnmj deficiency (CMS/HCC) Arthritis Claudication Feeling of incomplete bladder emptying Gastroesophageal reflux disease Internal 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 He is maintained on aspirin and low-dose [...] THE MORNING, Disp: 90 tablet, Rfl: 3 rrpsijespcl-rhqkcqggv-subzcddo (Trelegy Ellipta) 100-62.5-25 mcg blister with device, Inhale 1 puff in the morning., Disp: , Rfl: lisinopril 10 mg tablet, Take 10 mg by mouth in the morning., Disp: , Rfl: metoprolol succinate XL (Toprol-XL) 25 mg 24 hr tablet, Take 1 tablet (25 mg) by mouth (more content not included)...[facility] 09-18-2024 NoteCardiology Clinic Note Pawan Bustillo is a 68 y.o. year old male patient with hypertension, hyperlipidemia, tobacco abuse, PAD s/p bilateral common and bilateral external iliac stents by Dr. Schroeder at [facility] in 05/2021, and CAD status post PCI ro mLAD in 2016. He presents today for follow up. Patient [...] abnormal Benign prostatic hyperplasia with urinary obstruction Tbgxs-4-yqlecwxvedq deficiency (CMS/HCC) Arthritis Claudication (CMS/HCC) Feeling of incomplete bladder emptying Gastroesophageal reflux disease Internal derangement of left shoulder group home current use of inhaled steroid Multiple pulmonary [...] external iliac stents by Dr. Schroeder at [facility] in 05/2021, and CAD status post PCI [...] the morning., Disp: 90 tablet, Rfl: 3 wbpjjomerwr-ewoubtgna-zaxgzpxx (Trelegy Ellipta) 100-62.5-25 mcg blister with device, [...] The RCA has a chronic total occlusion (MANAGER GIFT), however it is a small vessel and is supplied by collaterals, so only medical therapy (more content not included)...[facility]02-04-2025 Radiology Diagnostic study [facility] [address] [place] [address] Ultrasound Report Signed Patient: Pawan Bustillo MR#: [id number] : 1955 Acct:[id number] Age/Sex: 68 / M ADM Date: 5 Loc: [facility] Room: Type: [facility] [address] Attending Dr: Tom Schroeder MD Ordering Provider: [...] the dorsalis pedis artery with ankle-brachial index of1.00 0.94 . Pressures at the left ankle are 145 using the posterior tibial artery, and 132 with ankle-brachial index of 1.03 0.94 . Wave forms by plethysmography are normal. US/US ankle/arm indices IMPRESSION: NO HEMODYNAMICALLY SIGNIFICANT PERIPHERAL VASCULAR OCCLUSIVE DISEASE AT REST IN EITHER LOWER EXTREMITY. Impression dictated by: Tom Schroeder M.D.09/04/2024 1:31 PM Dictation Location: [place] [address] Tech: Irma Jimenez Transcribed By: NOÉ 09/04/24 133 Dictated By: Tom Schroeder MD 09/04/24 133 Signed By: 09/04/24 133 [facility] Work Phone: 1(728) 475-983912-30-2024 Evaluation note* Diagnosis Onset Date Resolution Status Admit Date COPD with acute bronchitis acuteDecember 2023 2:35pmFormer smokeracuteFebruary 2024 12:56pm Peripheral arterial occlusive diseaseacuteFebruary 2024 12:56pm [facility] Work Phone: 1(124) 883-829902-17-2024 Consult note Author Juventino Kruse [facility] September 17, 2023 9:58amNote Date/TimeFebruary 2023 9:59am[place] [address] Pulmonology Consult Note Signed Patient: Pawna Bustillo MR#: [id number] : 1955 Acct:[id number] Age/Sex: 67 / M Adm Date: 4 Loc: Room: [address] [place] [address] Type: ADM IN Attending Dr: Tom Schroeder [...] negative unless noted below or in HPI [facility] Medical History (Updated 09/17/23 @ 09:57 by Juventino Kruse MD) BPH (benign prostatic hyperplasia) Problem List clean-up per request of Phys. [facility] COPD (chronic obstructive pulmonary disease) Problem List clean-up per request of Phys. [facility] Myocardial infarct Problem List clean-up per request of Phys. [facility] Surgical History H/O repair of rotator cuff Problem List clean-up per request of Phys. [facility] History of ankle surgery RIGHT Problem List clean-up per request of Phys. [facility] H/O hernia repair Problem List clean-up per request of Phys. [facility] H/O heart artery stent Problem List clean-up per request of Phys. [facility] Family History (Updated 06/13/23 @ 10:05 by [...] to bring in his trilogy from home hecould continue with this ? If CXR consistent with atelectasis, I would anticipate weaning from supplemental oxygen after bronchodilators, incentive spirometry Documented By: Juventino Kruse MD 09/17/23 0953 Signed By: <Electronically signed by Juventino Kruse MD> 09/17/23 0958 [facility] Work Phone: 1(215) 648-691002-16-2024 [facility] Progress note Author Tom Schroeder [facility] September 15, 2023 3:56pmNote Date/TimeFebruary 2023 3:56pm[place] [address] Vascular Surgery Progress Note Signed Patient: Pawan Bustillo MR#: [id number] : 1955 Acct:[id number] Age/Sex: 67 / M Adm Date: 4 Loc: Room: [address] [place] [address] Type: ADM IN Attending Dr: Tom Schroeder MD Copies to: ~ Date of Service: 09/15/2023 Subjective Subjective Interval history: Patient underwent revascularization this morning with repeat stenting of his common iliac artery and angioplasty of the external iliac artery. I came to seehim postoperatively and he reports that hisfoot feels like it is asleep although he [...] pink and warm with good Doppler signal inboth the posterior tibial and dorsalis pedis. Puncture [...] 65.7 64.5 Lymph % (Auto) 22.1 22.9 [place] % (Auto) 7.3 8.6 Eos % (Auto) 4.1 3.7 Baso % (Auto) 0.8 0.3 Nucleat RBC Rel Count 0.2 0.1 Neut # (Auto) 4.0 3.9 Lymph # (Auto) 1.3 1.4 [place] # (Auto) 0.4 0.5 Eos # (Auto) [...] 79.7 85.7 Lymph % (Auto) 12.0 7.7 [place] % (Auto) 7.2 5.8 Eos % (Auto) 0.9 0.4 Baso % (Auto) 0.2 0.4 Nucleat RBC Rel Count 0.1 0.1 Neut # (Auto) 6.0 7.3 Lymph # (Auto) 0.9 L 0.7 L [place] # (Auto) 0.5 0.5 Eos # (Auto) [...] foot with an abnormal physical examination despite spiritism of his inflow. It is likely that he has had a distal embolic event. 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 We will use a [place] percutaneous atherectomy thrombectomy device and we will follow that with intravascular ultrasound to look for any potential cause forthe early stent failure. I will likely give him full dose oral anticoagulation along with aspirin after this episode. He is aware that he needs to discontinue smoking. [facility] Other 10-16-2023 Evaluation note* Encounter Date Diagnosis Assessment Notes Treatment Notes Treatment Clinical Notes May, Peripheral vascular disease, uns pecified (ICD-10 - I73.9) May,Other specified postprocedural states (ICD-10 - Z98.890) May,OtherPeripheral artery occlusive disease He has failure of his right iliac stent and likely bilateral recurrent external iliac artery occlusive disease. Today we had a long talk about smoking cessation, the impact that continued smoking hason the patency of reconstruction, the increased risks for limb loss with repeat interventions. He is quite debilitated at this time and so will undergo attempted repeat endovascular intervention. Nature of the procedure was discussed with the patient and his in detail and we reviewed all the images. He will either need Plavix or low-dose Xarelto in addition to his current medical regimen. [facility] Other 09-26-2023 Evaluation note* Encounter Date Diagnosis Assessment Notes Treatment Notes Treatment Clinical Notes Apr, PAD (peripheral artery disease) (ICD-10 - I73.9) This patient has known peripheral arterial disease with previous bilateral iliac intervention. He complains of very short distance buttock claudication. By physical examination he has decreased pedalpulses bilaterally. On the right, he has nonpalpable femoral, popliteal, and pedal pulses. He is ongood medical therapy with use of aspirin and statin medication daily. He has no ischemic rest pain and no tissue loss. At this juncture, due to severe short distance buttock claudication with historyof previous iliac intervention I recommend CTA of the aorta with runoff to evaluate his lower extremity arterial supply. I suspect recurrent stenosis bilaterally. We will have him back to the office after the CT to discuss those results as well as any treatment recommendations based on those studies. Discussed continued walking program. He should also work on smoking cessation. Apr,ecreased pedal pulses (ICD-10 - R09.89) Apr,urrent every day smoker (ICD-10 - F17.200)Discussed health risk associated with tobacco smoking. Patient understands his risks and is unmotiva sharona to quit. Apr,laudication in peripheral vascular disease (ICD-10 - I73.9) [facility] Other 05-25-2023 Evaluation note* Encounter Date Diagnosis Assessment Notes Treatment Notes Treatment Clinical Notes November, COPD exacerbation (ICD-10 - J44. 1) Bronchitis suspected due to wheezes, chest tightness, cough and/or impaired air movement. Medication prescribed. Avoid extreme heat and cold as this may exacerbate inflammation of airways. If wheezing, chest tightness and/or SOB occurs, go to ER. Anbx may not be necessary at this time. [facility] Other 04-11-2023 Evaluation note* Encounter Date Diagnosis Assessment Notes Treatment Notes Treatment Clinical Notes Oct, Bronchitis (ICD-10 - J40) Bronchitis: Care Instructions material was printed Pt is acutely sick with acute complicated bronchitis Recommend: Antibiotics: Azithromycin 50 mg po daily for 5 days Bronchodilator: Albuterol with prednisone taper expectorent: Mucinex\ Pawan agreed I could send note to [facility] Cardiology. Will check on his improvement on 11/12. [facility] Other 09-19-2022 Hospital Discharge instructions Patient Education [...] prostate. Follow these instructions at home: Take qffi-ygs-xeczjrt and prescription medicines only as told by [...] 07/15/2001 Document Revised: 09/30/2018 Document Reviewed: 04/07/2017 [employer] Patient Education 2020 [employer] Follow Up Care 01/19/2022 12:19:40 With:TSERING BARRY, Maritza Balderas, URL Address: [facility] [address] [place] [address]- [phone] When:10/17/2022 Comments:[facility] 06-21-2022 Hospital Discharge instructions Patient Education 01/19/2022 12:18:25 [...] degrees. Follow Up Care 12/21/2021 11:45:08 With:Maritza CAGLE Address: [facility] [address], [place] [address] Business (1) When:04/21/2022 12:18:02 Comments:With a bladder scan [facility]06-21-2022 Evaluation + Plan noteExtracted from: Title:Urology Progress NoteAuthor:Maritza CAGLE MD RDate:01/19/22 Impression and Plan Impression: #1. This gentleman [...] Appointments Appointment Date:04/19/2022 09:30:00 AM Scheduled Provider:Maritza CAGLE [facility] App[facility] Type:URO Office Visit [facility]10-11-2021 Evaluation note* Encounter Date Diagnosis Assessment Notes Treatment Notes Treatment Clinical Notes May, Peripheral vascular occlusive di sease (ICD-10 - I73.9) This patient has aortoiliac [...] him back once his arteriogram is completed May,urrent smoker (ICD-10 - F17.200) [facility] Other Evaluation + Plan note Future Appointments Appointment Date:10/18/2022 10:45:00 AM Scheduled Provider:Maritza CAGLE MD Location:[facility] Appointment Type:URO Office Visit Diagnostic Tests Pending * PSA Total 04/19/22 [facility] evaluation + Plan note Future Appointments Appointment Date:06/06/2025 08:00:00 AM Scheduled Provider:XAVI Small APRN, [place] X Location:[facility] Appointment Type:URO Office Visit Diagnostic Tests Pending * PSA Screen, Total 04/04/25 [facility] evalykopjn noteNo InformationNort [employer] Other Evaluation noteNo assessment information available [facility] [employer] Work Phone: Evaluation note* Diagnosis Onset Date Resolution Status Peripheral arterial occlusive disease acutePostoperative acute respiratory failureacute [facility] [employer] Work Phone: Evaluation note* Diagnosis Onset Date Resolution Status Bronchitis acuteCOPD exacerbationacutePeripheral arterial occlusive diseaseacute [facility] [employer] Work Phone: History general Narrative - Reported* Type Description Date Medical History PVOD w/claudication Medical HistoryhypercholesterolemiaMedical HistoryCADMedical HistoryMISurgical Historyhernia repairSurgical Historyheart stentSurgical Historyankle surgery [facility] Other History general Narrative - Reported* Type Description Date Medical History PVOD w/claudication Medical HistoryhypercholesterolemiaMedical HistoryCADMedical HistoryMISurgical Historyhernia repairSurgical Historyheart stentSurgical Historyankle surgery Hospitalization HistorySEE SURGICAL [facility] Other History general Narrative - Reported* Type Description Date Medical History PVOD w/claudication Medical HistoryhypercholesterolemiaMedical HistoryCADMedical HistoryMISurgical Historyhernia repairSurgical Historyheart stentSurgical Historyankle surgery Surgical HistoryLeft shoulder surgery11/2022Hospitalization HistorySEE SURGICAL [facility] Other History general Narrative - Reported* Type Description Date Medical History PVOD w/claudication Medical HistoryhypercholesterolemiaMedical HistoryCADMedical HistoryMIMedical History[ ]Surgical Historyhernia repairSurgical Historyheart stentSurgical Historyankle surgerySurgical HistoryLeft shoulder surgery11/2022Surgical History[ ]Hospitalization HistorySEE SURGICAL [facility] Other Hisnywi general Narrative - Reported* Type Description Date Medical History PVOD w/claudication Medical HistoryhypercholesterolemiaMedical HistoryCADMedical HistoryMIMedical HistoryPADMedical History[ ]Surgical Historyhernia repairSurgical Historyheart stentSurgical Historyankle surgerySurgical HistoryLeft shoulder surgery11/2022 Surgical HistoryLEG JQACQB10/2023Hospitalization HistorySEE SURGICAL [facility] Other Hospital course Narrative No data available for this section [facility] No data available for this section [facility] Hospital Discharge instructionsAmbulatory Orders* Referral to Pulmonology Time Frame: 05/14/25, Location: None [facility] Work Phone: Progress note No data available for this section [facility] for [facility] (narrative)No reason for referral information availableP[facility] Work Phone: Summary Purpose Family History Relationship Condition Age at Onset Recorded Date/T mckenzie brother Unknown Heart diseaseUnknownfatherHeart diseaseUnknownDeceasedUnknownNot Specified DeceasedUnknownsisterHeart diseaseUnknown Relationship Condition Age at Onset Recorded Date/T mckenzie brother Unknown Heart diseaseUnknownfatherHeart diseaseUnknownDeceasedUnknownmotherDeceased UnknownsisterHeart diseaseUnknown Advance Directives Advance Directive Response Recorded Date/ [...] Pain PAD w/ Sudden Onset Right Foot PainReason for VisitPeripheral arterial occlusive disease Postoperative acute respiratory failure Chief Complaint chest congestion 3 MONTH F/U; AVIVA'S 12:00 I70.213Reason for VisitBronchitis COPD exacerbation Peripheral arterial occlusive disease Chief Complaint Admit Date cough, congestion July 30, 2024 2:35pm I70.213 September 04, 2024 1 2:53pm 6 MONTH F/U; [facility] 1P September 04, 2024 12:56pm Reason for Visit Admit Date COPD with acute bronchitis July 2:35pm Former smoker September 04, 2024 1 2:56pm Peripheral arterial occlusive disease Fe bru2024 12:56pm Chief Complaint Admit Date Cough, congestion March 25, 2025 11 :58am Chief Complaint Admit Date Cough, congestion March 25, 2025 11 :58am Chest Congestion May 14, 2025 1 :08pm Reason for Visit Admit Date COPD with acute bronchitis March 25, 2025 11:58am COPD with acute bronchitis May 14, 2025 1:08pm Additional Source Comments (unrecognized sect ion and content) No Status Records FoundNo Status Records FoundNo Status Records FoundNo Status Records FoundNo Status Records Found INFORMATION SOURCE (unrecogn ized section and content) DATE CREATED AUTHOR 06/09/2019 [facility] DATE CREATED AUTHOR AUTHOR'S ORGANIZ ATION 11/06/2022 [facility] DATE CREATED AUTHOR AUTHOR'S ORGANIZ ATION 09/06/2024 [facility] DATE CREATED AUTHOR AUTHOR'S ORGANIZ ATION 04/03/2025 [facility] DATE CREATED AUTHOR AUTHOR'S ORGANIZ ATION 04/07/2025 [facility] Care Team (unrecognized sect ion and content) Team Status: Active Member Role Status Dates Keaton Rico MD Primary Care Provider Active Team Status: Inactive Member Role Status Dates Keaton Rico MD Primary Care Provider Active Madie Honeycutt NP-Giancarlotending ProviderActive Team Status: Inactive Member Role Status Dates Keaton Rico MD Primary Care Provider Active Ken Ca ProviderActive Team Status: Inactive Member Role Status Dates Keaton Rico MD Primary Care Provider Active Start: September 12, 2023 End: September 12, 2023Ken Ca ProviderActiveStart: September 12, 2023 End: September 12, 2023 Team Status: Inactive Member Role Status Dates Keaton Rico MD Primary Care Provider Active Start: September 14, 2023 End: September 17, 2023Rj Ca Provider, Attending Provider ActiveStart: September 14, 2023 End: September 17salvatore Kruse MDOther ProviderActiveStart: September 14, 2023 End: September 17, 2023 Team Status: Active Member Role Status Dates Keaton Rico MD Primary Care Provider Active Start: September 14, 2023 Ken Ca Provider, Other ProviderActiveStart: September 14, 2023 Team Status: Active Member Role Status Dates Keaton Rico MD Primary Care Provider Active Start: September 17, 2023 Rj Ca Provider, Other ProviderActiveStart: September 17, 2023 Ken Klein Provider, Other ProviderActiveStart: September 17, 2023 Team Status: Inactive Member Role Status Dates Kailyn Muro APRN SPINNING MACHINE OPERATOR-C Attending Provider Act esmer Start: October 20, 2023 End: October 20, 2023Lisa Henriquez Care ProviderActiveStart: October 20, 2023 End: October 20, 2023 Team Status: Inactive Member Role Status Dates Keaton Rico MD Primary Care Provider Active Start: January 17, 2024 End: January 17, 2024Ken Ca ProviderActiveStart: January 17, 2024 End: January 17, 2024 Team Status: Inactive Member Role Status Dates Keaton Rico MD Primary Care Provide r, Attending Provider Active Start: July 30, 2024 End: July 30, 2024 Team Status: Inactive Member Role Status Dates Keaton Rico MD Primary Care Provider Active Start: September 04, 2024 End: September 04, 2024Ken Ca ProviderActiveStart: September 04, 2024 End: September 04, 2024 Team Status: Inactive Member Role Status Dates Keaton Rico MD Primary Care Provider Active Start: March 25, 2025 End: March 25, 2025Tosha Jeff APRN SPINNING MACHINE OPERATOR-CAttending Provider ActiveStart: March 25, 2025 End: March 25, 2025 Team Status: Inactive Member Role Status Dates Keaton Rico MD Primary Care Provider Active Start: May 14, 2025 End: May 14, 2025Ken Henriquez ProviderActiveStart: May 14, 2025 End: May 14, 2025 REASON FOR VISIT (unrecogniz ed section and content) 3 MONTH FOLLOW UP; [facility] BOT H LEGS 11:30A, Right leg painGO OVER CT RESULTS FROM 05/02 AT [facility], Follow-up CT angiogramPain in legs, previous angiogramrefillCOUGHING, [...] BE BASED ON THE PRIMARY CLINICAL RECORDS. [facility] [employer] [facility]. provides no warranty or guarantee of the accuracy or completeness of information in this document.
--- NOTE | 2025-05-21 14:08 | XR_ITS ---
The [place] [id number] Patient Name: JACKELYN BUSTILLO MRN: [id number] date: 1955 Sex: M Assigned Patient Location: [facility] Current Patient Location: [facility] Accession/Order Number: [id number] Exam Date: 05/21/2025 14:00 Report Date: 05/21/2025 15:05 At the request of: KEATON RICO MD Procedure: XR chest 2V PA AND LATERAL CHEST: CLINICAL HISTORY: Cough, shortness of breath and chest pain. Acute bronchitis with chronic obstructive pulmonary disease COMPARISON: CT chest 07/05/2023 There is hyperinflation. Atelectasis and/or scarring is visualized, greatest at the right middle lobe and lingula. There is no additional consolidation, effusion or pneumothorax. The cardiac, hilar and mediastinal silhouettes are within normal limits. There is no vascular congestion. The visualized bony structures are osteopenic. There is slight dextroscoliotic curvature and mild endplate spurring. Slight wedge compression deformity of a midthoracic vertebral body is chronic. XR/XR chest 2V IMPRESSION: OBSTRUCTIVE LUNG DISEASE WITH MILD CHRONIC CHANGES. NO ACUTE CARDIOPULMONARY ABNORMALITY. Impression dictated by: Sonal Kebede M.D. 05/21/2025 3:05 PM Dictation Location: [place] [address] Electronically authenticated by: [id number] Y Date: 05/21/2025 15:05
== END 2025-05-21 13:53 | disposition home or self-care (01) ==
LOC: RAD 13:53
PROVIDERS: PCP Family Medicine; Visit Provider Family Medicine
DX: J44.0 Chronic obstructive pulmonary disease with (acute) lower respiratory infection (principal); J20.9 Acute bronchitis, unspecified
CPT/HCPCS: 71046

== ENCOUNTER 2025-05-24 11:54 | Outpatient (OUT) | payer MEDICARE, SELFPAY ==
--- OUTSIDE RECORDS SUMMARY | 2024-09-18 09:30 | XMS_ITS ---
Author Organization [facility] [place] Address [address] [place] [address] Care Team Providers Care Certified Medical Coder Name Role Phone Nakia Rascon Primary Care Provider Fareed Alvarado [phone] REASON FOR VISIT 2 mos F/U Encounters Encounter Location Date Provider Diagnosis Pulmonary Medicine [facility] [address] [place] [address] 09/18/2024 Fareed Cruz Plan Of Treatment No Information Progress Notes * Pawan BUSTILLO LDOB:1955 (69 yo M)Acc No.[id number]:09/18/2024 UNLOCKED PROGRESS NOTE Follow Up Patient: Pawan JENKINS :?Fareed Cruz DODOB:1955???Age:68 Y ???Sex:MaleDate:09/18/2024Phone:[phone]:[address] [place], [place] [id number]:Nakia Rascon Subjective: * Chief Complaints: * 1 . 2 mos F/U. * Medical History: Objective: * Vitals: Assessment: Plan: * Treatment: * * Electronic signature of Fareed Cruz DO on 05/24/2025 at 12:07 PM EDTSign off status: PendingVisit Status:?R/S (Rescheduled) * Provider: Tino Cruz DO Date: 0 09/18/2024 Generated for Printing/Faxing/eTransmitting on:?05/24/2025 12:07 PM EDT
--- OUTSIDE RECORDS SUMMARY | 2025-03-13 06:00 | XMS_ITS ---
Author Organization The [facility] in [place] Address [address] [place] [address] Care Team Providers Care Burn Out Scarfing Operator Name Role Phone Nakia Rascon Primary Care Provider Fareed Alvarado [phone] REASON FOR VISIT 3m F/U - COPD Encounters Encounter Location Date Provider Diagnosis Pulmonary Medicine [place] [address] [place] [address] 03/13/2025 Fareed Cruz Plan Of Treatment No Information Progress Notes * Pawan BUSTILLO LDOB:1955 (69 yo M)Acc No.[id number]:03/13/2025 UNLOCKED PROGRESS NOTE Follow Up Patient: Pawan JENKINS [place] :?Fareed Nancy DODOB:1955???Age:69 Y ???Sex:MaleDate:03/13/2025Phone:[phone]:[address] [place], [place] [id number]:Nakia Rascon Subjective: * Chief Complaints: * 1 . 3m F/U - COPD. * Medical History: Objective: * Vitals: Assessment: Plan: * Treatment: * * Electronic signature of Fareed Cruz DO on 05/24/2025 at 11:27 AM EDTSign off status: PendingVisit Status:?OFF CANC (OFFICE CANCEL) * Provider: Tino Cruz DO Date: 0 03/13/2025 Generated for Printing/Faxing/eTransmitting on:?05/24/2025 11:27 AM EDT
--- OUTSIDE RECORDS SUMMARY | 2025-05-24 12:07 | XMS_ITS | Clinical Summary ---
Author Organization [employer] [facility] tem Address [id number] [address] [place] [address] Care Team Providers Care Marketing Outreach Coordinator Name Role Phone Nakia Rascon MD Primary Care Provider [phone] Allergies No known active allergies Medications MedicationSigDispense QuantityRefillsLast FilledStart DateEnd DateStatus ldcxrhqesho-irtkeowmo-xncpanuc (TRELEGY ELLIPTA) 100-62.5-25 mcg blister with device [...] RecordedSex Assigned at BirthNot on file Legal RaqVlkk0209/28/2022 9:32 AM ESTGender IdentityNot on fileSexual Orientation Not on file Last Filed Vital Signs Vital SignReadingTime TakenCommentsBlood Btsnibxt701/9303 1:21 PM EDT Hespb474110/11/2022 1:21 PM EDTTemperature--Respiratory Rate--Oxygen Saturation-- Inhaled Oxygen Concentration--Imabmi56.9 kg (185 lb)10/11/2022 1:21 PM EDTHeight 177.8 cm (5' 10 )10/11/2022 1:21 PM EDTBody Mass Index26.54010/11/2022 1:21 PM EDT Plan of Treatment Health MaintenanceDue DateLast DoneCommentsDepression Zbtwjzamf17/28/1968Tobacco Fpxbnefhh77/28/1968DTaP,Tdap and Td Vaccines (1 - Tdap) Zoster (Shingles) Vaccine (1 of 2)11/26/2005Fall Risk Shbpnnoak51/28/2021dult BMI Pekpuunao31OVID-19 Vaccine ( season)2025 06/09/2021, 11/07/2020, 10/28/2020, Additional history existsInfluenza Vaccine 04/01/2025 Medical Devices Not on file Insurance Care Teams Team MemberRelationshipSpecialtyStart DateEnd Date Nakia Rascon MD [address] [place] [address] PCP - GeneralFamily Medicine10/06/22
--- OUTSIDE RECORDS SUMMARY | 2025-05-24 12:07 | XMS_ITS | Patient Health Record ---
Author Organization [facility] [place] Address [address] [place] [address] Care Team Providers Care Nut Grinder Name Role Phone Nakia Rascon Primary Care Provider Fareed Alvarado Unavailable [phone] Allergies No Known Allergies Reason For Referral [...] Tobacco use: Former smoker Additional Findings: Tobacco zei-eqewGm-pclli cigarette smoker (20-30/day) Problems Problem Type SNOMED Code ICD Code Onset Dates Problem Status W/U Status Risk Notes Problem Centrilobular emphysema (97903805) Centri lobular emphysema (J43.2) ActiveconfirmedProblemLong-term current use of inhaled steroid (059259432)CHCF (current) use of inhaled steroids (Z79.51)ActiveconfirmedProblem Gastroesophageal reflux disease (558613449)GERD (gastroesophageal reflux disease) (K21.9)ActiveconfirmedProblemMultiple pulmonary nodules (012501390) Multiple pulmonary nodules (R91.8)ActiveconfirmedProblemEx-tobacco user (finding) (680750183)History of tobacco abuse (Z87.891)ActiveconfirmedProblem Mvlxx-8-vmeqnhnhhzy deficiency (40507571)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)Activeconfirmed Vital Signs Heart Rate 71 [...] Encounter Location Date Provider Diagnosis Pulmonary Medicine [place] [address] [place] [address] 06/11/2024 [facility] [address] [facility] [place] [place] [address]/09/2023 [facility] [place] [address] 09/17/2024[facility] [facility] [place] [address]/07/2025[facility] Medicine [address] [facility] [place] [place] [address]/12/2024[facility] Medicine [address] [facility] [place] [address]/[facility] SamCentrilobular emphysema J43.2 ; Multiple pulmonary nodules R91.8 ; AAT (anosl-8-mpgqabwricr) deficiency E88.01 ; CHCF (current) use of inhaled steroids Z79.51 and History of tobacco abuse Z87.891Pulmonary Medicine [address] [facility] [place] [place] [address]/[facility] J43.2 ; Hypoxemia R09.02 ; AAT (mbnbw-8-qtwmjjwqhsu) deficiency E88.01 ; Encounter for immunization Z23 ; Multiple pulmonary nodules R91.8 ; lobsterman (current) use of inhaledsteroids Z79.51 and History of tobacco abuse Z87.891 [...] looking into a new insurance company as [employer] is giving him problems with Trelegy. It [...] full testing - 6MW, nocturnal) -Prolastin for NM (unclear if he would qualify - needs [...] once again denied any further w/up. 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 Discussed consideration of augmentation therapy - would recheck PFT to see if any decline +/- retesting level. Patient refused this option today. 4AAT (enzen-8-lyrnzbuibwg) deficiency (ICD-10 - E88.01) Patient has a [...] the choice to the patient. Patient refused. 12/11/2024Multiple pulmonary nodules (ICD-10 - R91.8) History: [...] is off the table as an option. 06/27/2024History of tobacco abuse (ICD-10 - Z87.891) Patient quit smoking September of this year. He was allotted for his efforts. He does not meet LDCT screening guidelines because of the abnormal nodules that would need followed up with a diagnostic CT chest. 12/11/2024Long term (current) use of inhaled steroids [...] End Date [address] [place] [address] [phone] Hay, BernardSelf - patient is the insured Medical (General) History Medical History History ICD Code Centrilobular emphysema J43.2 AAT (oouqi-0-dcgcbibzfyc) deficiency E88 .01 CAD (coronary artery disease) I25.10 HTN (hypertension) I10 HLD (hyperlipidemia) E78.5 GERD (gastroesophageal reflux disease) K 21.9 Multiple pulmonary nodules R91.8 History of tobacco abuse Z87.891 Surgical History Surgery Date(Month/Year) Shoulder Surgery-Left Hernia RepairCardiac Catheterizationcoronary artery bypass graftvascular stent
--- OUTSIDE RECORDS SUMMARY | 2025-05-24 12:07 | XMS_ITS | Clinical Summary ---
Author Organization [facility] Address [address] [place] [address] Care Team Providers Care Industrial Relations Director Name Role Phone Nakia Rascon MD Primary Care Provider [phone] Medications MedicationSigDispense QuantityRefillsLast FilledStart DateEnd DateStatus varenicline (Chantix) 0.5 MG tablet ChantixActive Bkxiklzkhme-Afqikrokk-Gohrui (Trelegy Ellipta) 100-62.5-25 MCG/INH aerosol powder 1 [...] chest pain. Active Active Problems ProblemNoted DateDiagnosed GzixUkirzddsslld22/08/2023Internal derangement of left aatqubpd28/08/2023 Family History Medical HistoryRelationNameCommentsDiabetesFatherHeart diseaseFatherHeart diseaseMotherRelationNameStatusCommentsFatherDeceasedMotherDeceased Social History Tobacco UseTypesPacks/DayYears UsedDateSmoking Tobacco: Every DayCigarettes Tobacco Cessation:Ready to Q uit: Not Asked; Counseling Given: Not Answered Comments:Smokes 6-10 cigarettes/day Alcohol UseStandard Drinks/WeekCommentsYes0 (1 standard drink = 0.6 oz pure alcohol)Sex and Gender InformationValueDate RecordedSex Assigned at BirthNot on fileLegal DclMcnb6810/13/2022 6:49 PM EDTGender IdentityNot on fileSexual OrientationNot on file Last Filed Vital Signs Vital SignReadingTime TakenCommentsBlood Pressure--Pulse--Temperature-- Respiratory Rate--Oxygen Saturation--Inhaled Oxygen Concentration--Iwmngj93.9 kg (185 lb)11/18/2022 12:00 PM VRLWafrjv019.3 cm (5' 11 )11/18/2022 12:00 PM EDT Body Mass Index25.8011/18/2022 12:00 PM EDT Plan of Treatment Not on file Insurance Care Teams Team MemberRelationshipSpecialtyStart DateEnd Date Nakia Rascon MD PCP - GeneralFamily Medicine12/30/22
--- OUTSIDE RECORDS SUMMARY | 2025-05-24 12:07 | XMS_ITS | Clinical Summary ---
Author Organization [facility] Address [address] [place] [address] Care Team Providers Care Client Delivery Manager Name Role Phone Nakia Rascon MD Primary Care Provider [phone] Allergies No known active allergies Medications MedicationSigDispense [...] puffs every 4 (four) hours if needed.04/01/2022ctive lqeyaqtnavn-rmybzcwgr-fmbuhtvi (Trelegy Ellipta) 100-62.5-25 mcg blister with device [...] 24 hr tablet Indications:Coronary artery disease involving iliamna coronary artery of iliamna heart without angina pectoris,PAD (peripheral artery disease)Take [...] tablet ctive Active Problems ProblemNoted DateDiagnosed DateFormer wwwyyo4303/09/2024eripheral arterial occlusive ltbgagr3803/09/2024ostoperative acute respiratory wvjxfro4603/09/2024 Obtuc-1-ycjruategsn hbyzounckm01rthritis Feeling of incomplete bladder guwbrkyx68Gastroesophageal reflux xbdqxsn04Long term current use of inhaled steroid /04/2024Multiple pulmonary bganeis40laudication Internal derangement of left xsrklems74/04/2024 Urinary npvlsbn9609/27/2022Tobacco dependence fmymhakn2023hronic obstructive pulmonary optecuf2609/27/20226861Pvkxjtjvfad21/27/2023oor urinary stream 09/27/2022Myocardial kpduhnoqbr10/27/2023Increased frequency of urination 09/27/2022Incomplete emptying of pvukqxp4509/27/2022Hypertensive disorder 09/27/20226590Iimhqednlmkcil64/27/8520Nlarsfgu97/27/3333Uqswsog72/27/2023yspnea on lisikkso06/27/2023urrent lpbduq40/ Overview (09/27/2022): Added secondary to documentation in Social History. Coronary etlzsmhdwlphkslq53/27/2023ardiovascular stress test wfqvhoqq34/27/2023 Benign prostatic hyperplasia with urinary njrfvxvgulj48/27/2023 Encounters DateTypeDepartmentCare PrkkUgfhrvdupky36/24/2025Telephone [address] [address] Kyleigh Colby MA 05/24/2025Orders Only [address] [place] [address] Kyleigh Colby MA Shortness of breath (Primary Dx)04/02/2025Telephone [address] [place] [address] Kyleigh Colby MA 03/21/2025Orders Only [address] [place] [address] ProviderJenna MD 03/11/2025 10:00 AM EDTOffice Visit [address] [place] [address] Juan Cardona MD Coronary artery disease involving iliamna coronary artery of iliamna heart without angina pectoris (Primary Dx); Essential hypertension; PAD (peripheral artery disease); Mixed hyperlipidemia; Shortness of breath; Status post insertion of drug eluting coronary artery stent03/02/2025Refill [address] [place] [address] Adiel Moran MD Mixed hyperlipidemiafrom Last 3 [...] on file09/22/2023 Physically or Sexually AbusedNot on 09/22/2023Sex and Gender Information ValueDate RecordedSex Assigned at QbcelQnfn88/17/2023 8:56 AM EDTLegal SexMale 01/27/2022 9:50 PM EDTGender YzllstbgOjbx62/17/2023 8:56 AM EDTSexual OrientationHeterosexual or Jfewcpht47/17/2023 8:56 AM EDT Last Filed Vital Signs Vital SignReadingTime TakenCommentsBlood Jlremamb060/7903/11/2025 10:09 AM EDT Ydzgk146803/11/2025 10:09 AM EDTTemperature--Respiratory Lqwq782811/15/2022 12:29 PM EDTOxygen Ravbsnltua30%03/11/2025 10:09 AM EDTInhaled Oxygen Concentration-- Buczyp80.3 kg (199 lb)03/11/2025 10:09 AM HEFLoavbz089.9 cm (6')03/11/2025 10:09 AM EDTBody Mass Index26.9903/11/2025 10:09 AM EDT Plan of Treatment DateTypeDepartmentCare Team (Latest Contact Info)Bfowfxovmyy44/21/2025 [address] [facility] [address] [place] [address] Juan Cardona MD [address] [facility] [place] [address] Health MaintenanceDue DateLast DoneCommentsCT Tssixaodloff59/28/1956olonoscopy 1955olorectal Cancer Xqrwumdln68/28/1956FIT-DNA1955FIT1955 FOBT1955Medicare Annual Wellness (AWV)1955 6262Iifgjzivktrbf48/28/1956 Depression Qzkquukmn87/28/1968Pneumococcal Vaccine: 50+ Years (1 of 2 - PCV) 11/26/1974Zoster Vaccines (1 of 2)11/26/2005dult Wdduvde86/24/ Fall Risk Kqvpnhbag46/28/2021OVID-19 Vaccine ( season)2025 06/09/2021, 12/01/2020, 11/10/2020, Additional history existsInfluenza Vaccine (#1)04/01/2025HIB VaccinesAged OutNo longer eligible based on patient's age to complete this topicHPV VaccinesAged OutNo longer eligible based on patient's age to complete this topicIPV VaccinesAged OutNo longer eligible based on patient's age to complete this topicMeningococcal B VaccineAged OutNo longer eligible based on patient's age to complete this topicMeningococcal VaccineAged OutNo longer eligible based on patient's age to complete this topicRotavirus Vaccines Aged OutNo longer eligible based on [...] PROCEDURESFinal Result from Last 3 Months Insurance * Guarantor: Pawan Kaplan LAccount TypeRelation to PatientDate of BirthPhone Billing AddressPersonal/RdplquLzhx26/[birth year]/[address] [address] Care Teams Team MemberRelationshipSpecialtyStart DateEnd Date Nakia Rascon MD [address] [facility] [address] PCP - General09/27/22
--- OUTSIDE RECORDS SUMMARY | 2025-05-24 12:07 | XMS_ITS | CCD ---
Author Organization [facility] Care Team Providers Care Trolley Wire Installer Name Role Phone ELTAHAWBennie, EHAB A Admitting Unavailable ELTAHAWY, EHAB A Attending Unavailable KEATON RICO Referring Unavailable KEATON RICO Primary Care Unavailable KEATON RICO Primary Care Physician [phone] Tom Schroeder Unavailable Keaton Rico Unavailable DR KEATON RICO Primary Care Unavailable SAMSA ., NICKO Attending Unavailable ZIEBCHERYL, DR UMNIR Balderas Consulting Unavailable SAMSA ., NICKO Admitting [...] Keaton Rico Primary Care Provider MD Tom Schroedre Attending Provider [phone] MD Tom Schroeder Admit Provider MD Juventino Kruse Other Provider MD Keaton Rico Primary Care Provider MD Tom Schroeder Attending Provider Keaton Rico MD Primary Care Provider Tom [...] Attending Unavailable Keaton Rico MD Attending Provider [phone] Allergies Allergy ClassificationReported Allergen(s)Allergy TypeDate of OnsetReaction(s) Facility (1 source)No Known Medication Allergies; Translations: [No Known Medication Allergies]Propensity to adverse reactions (disorder)[facility] Repository Medications Current Medications MedicationDrug Class(es)DatesSig (Normalized)Sig (Original)acyclovir 400 mg oral tablet (3 sources)Herpesvirus Nucleoside Analog DNA Polymerase Inhibitor, Herpes Simplex Virus Nucleoside Analog DNA Polymerase Inhibitor, Herpes Zoster Virus Nucleoside Analog DNA Polymerase InhibitorStart: 63-23-7970vzgl 1 mg by mouth twice dailyacyclovir 400 mg Tab mg tab(s), Oral, BID, Refills(s) 0 Start Date: 06/22/21 Status: Orderedaspirin 81 mg oral capsule (20 sources)Platelet Aggregation Inhibitor, Nonsteroidal Anti-inflammatory Drug Start: 80-70-9488mhrj 1 mg by mouth every twenty-four hoursaspirin 81 mg oral capsule mg cap(s), Oral, q24hr, Refills(s) 0 Start Date: 04/04/25 Status: Ordered Repeat number: 1Start: 79-21-9084wlvl 1 tablet by mouth once dailyAspirin 81 mg tablet,chewable Active 81 MG PO Daily September 04, 2024 1:00am Complies with drug therapyStart: 05-13-2021 End: 09-96-6748xlit 1 tablet by mouth once dailyAspirin (Aspir-81) 81 mg Tablet,Delayed Release (Dr/Ec) Discontinued 81 MG PO Daily May 13, 2021 12:00am September 17, 2023 5:28pmStart: 05-20-4627muyq 1 mg by mouth every four hoursaspirin [...] oral tablet (18 sources)Macrolide AntimicrobialStart: 12-07-2024 End: 59-80-2160Ofnoxxzyyawo 250 mg tablet Active 0 PO .COMPLEX May 14, 2025 1:31pm For 250 mg dose pack: take 500 mg today (day 1), then 250 mg for 4 days (days 2-5) PO Complies with drug therapyStart: 07-30-2024 End: 94-36-3457Znvbmtoafnqu 250 mg tablet Discontinued 0 PO .COMPLEX July 30, 2024 1:00am September 04, 2024 2:25pm For 250 mg dose pack: take 500 mg today (day 1), then 250 mg for 4 days (days 2-5) POStart: 10-20-2023 End: 05-96-5021Rsgxeotzrdxm 250 mg tablet Discontinued 250 MG PO daily 01 03October 20, 2023 12:00am May 09, 2024 8:04am Take 2 today and then 1 for the next four daysStart: 74-52-9409Nvbxwzexhvql 250 MG as directed Orally 2 tabs po today, then 1 tab daily x 4 more days for 5 Oct, Not-Takingdoxycycline hyclate 100 mg oral capsule (2 sources)Tetracycline-class DrugStart: 04-04-2025 End: 07-62-9419iiuxbydqxct hyclate 100 mg Cap 100 mg = 1 cap(s), Oral, BID, may substitute hyclate for monohydratebased on availability, X 14 day(s), # 28 cap(s), Refills(s) 0, Pharmacy: [facility]/pharmacy #[id number], 180, cm, 04/04/25 15:44:00 EDT, Height/Length Dosing, 88.5, kg, 04/04/25 15:44:00 EDT, Weight Dosing Start Date: 04/04/25 Stop Date: 04/18/25 Status: Ordered Quantity: 28.0 Unit: cap(s) Repeat number: 1Start: 01-19-2022 End: 84-84-9421aafs 1 capsule by mouth every twelve hoursdoxycycline hyclate 100 mg Cap 100 mg = 1 cap(s), Oral, q12hr, X 21 day(s), # 42 cap(s), Refills(s)0, Pharmacy: [facility]/pharmacy #[id number], 180, cm, 01/15/22 10:43:00 EDT, Height/Length Dosing, 85, kg, 12/21/21 11:01:00 EDT, Weight Dosing Start Date: 01/19/22 Stop Date: 02/09/22 Status: OrderedErythromycin (8 sources)Macrolide, Macrolide AntimicrobialStart: 89-77-8550kugjwbdvuxzu ophthalmic 0.5% ointment 0.5 in, Eye-Both, QID, 3.5 gram, Refill(s) 0 Start Date: 06/22/21 Status: Ordered Quantity: 3.5 Unit: g Repeat number: 1Start: 43-33-8389mgyuiwtdkqlb ophthalmic 0.5% ointment 0.5 in, Eye-Both, QID, 3.5 gram, Refill(s) 0 Start Date: 06/22/21 Status: OrderedStart: 57-16-7096etmywzgtedpe ophthalmic 0.5% ointment 0.5 in, Eye-Both, QID, 3.5 gram, Refill(s) 0 Start Date: 06/22/21 Status: OrderedErythromycin 5 MG/GM 1 application into the lower eyelid of affected eye Ophthalmic Four times a day Activeezetimibe 10 mg oral tablet (14 sources)Dietary Cholesterol Absorption InhibitorStart: 56-41-4473qyul 1 tablet by mouth once daily in the morningezetimibe 10 mg Tab TAKE 1 TABLET BY MOUTH EVERY DAY IN THE MORNING Start Date: 04/04/25 Status: Ordered Repeat number: 2Hkkprhdsgli-Riivulpan-Bdaulsjx (7 sources)Anticholinergic, Corticosteroid, beta2-Adrenergic AgonistStart: 06-97-3483Mbwgmkryenn-Umeclidin-Vilanter (Trelegy Ellipta) 100-62.5-25 mcg blister with device Active 1 INH INHALATION Daily May 13, 2021 12:00am Complies with drug therapyStart: 35-06-5577Lgpywgfbqvh-Umeclidin-Vilanter (Trelegy Ellipta) 100-62.5-25 mcg blister with device Active 1 INH INHALATION Daily May 12, 2021 11:00pmStart: 47-82-6680Tjgknowmiha-Umeclidin-Vilanter (Trelegy Ellipta) 100-62.5-25 mcg blister with device Active 1 INH INHALATION Daily May 13, 2021 12:00amfurosemide 20 mg oral tablet (2 sources)Loop DiureticStart: 84-43-3493iovr 1 tablet by mouth once daily Furosemide 20 mg tablet Active 20 MG PO Daily May 14, 2025 12:00am Complies with drug therapyStart: 88-87-8070wgdz 1 tablet by mouth once daily furosemide 20 mg Tab 20 mg = 1 tab(s), Oral, Daily, # 30 tab(s), Refills(s) 0 Start Date: 04/04/25 Status: Ordered Quantity: 30.0 Unit: tab(s) Repeat number: 1 gatifloxacin 5 mg/ml ophthalmic solution (4 sources)Quinolone AntimicrobialStart: 72-21-5260andp 1 drop(s) into the eye(s) twice dailygatifloxacin 0.5% ophthalmic solution drop(s), BID, Refill(s) 0 Start Date: 06/22/21 Status: Ordered Repeat number: 124 hr metoprolol succinate 25 mg extended release oral tablet (8 sources)beta-Adrenergic BlockerStart: 60-88-5244chvx 1 tablet by mouth once dailyMetoprolol Succinate 25 mg tablet extended release 24 hr Active 25 MG PO Daily May 18, 2023 12:00am Complies with drug therapyStart: 04-22-3013cdyr 10 mg by mouth once dailyMetoprolol Succinate Active 10 MG PO Daily May 17, 2023 11:00pmMetoprolol Succinate Activenitroglycerin 0.4 mg sublingual tablet (11 sources)Nitrate VasodilatorStart: 30-92-9217iisdezfzathaw 0.4 mg sublingual Tab TAKE 1 TABLET SUBLINGUALLY EVERY 5 MINUTES NEEDED FOR CHEST PAIN Start Date: 04/04/25 Status: Ordered Repeat number: 1Start: 05-18-2023 End: 80-75-2423Cnsxokcjnymvx 0.4 mg tablet, sublingual Active 0.4 MG SUBLINGUAL EVERY 5 MINUTES as needed for Chest Pain March 18, 2025 8:14am Complies with drug therapyStart: 14-38-4376Prxvkpjgfmgsm 0.4 MG 1 tablet Sublingual as needed Jan, ActiveOxycodone-Ibuprofen (6 sources)Oxycodone-Ibuprofen ActivepredniSONE 20 mg oral tablet (6 sources)Start: 12-07-2024 End: 08-31-3582nitd 1 tablet by mouth twice dailyPrednisone 20 mg tablet Active 20 MG PO Twice daily May 14, 2025 1:31pm Complies with drugtherapy Start: 52-36-0394juux 2 tablets by mouth every twenty-four hourspredniSONE 20 MG 2 tablets Orally Once a day for 5 days November, Activerivaroxaban 2.5 mg oral tablet (10 sources)Factor Xa InhibitorStart: 17-30-0608ojgs 1 tablet by mouth twice dailyrivaroxaban 2.5 mg oral tablet TAKE 1 TABLET BY MOUTH TWICE A DAY Start Date: 04/04/25 Status: Ordered Repeat number: 1Start: 57-96-9697bruj 1 tablet by mouth twice dailyRivaroxaban (Xarelto) 2.5 mg tablet Active 0 .ROUTE .COMPLEX 60 March 04, 2025 8:06am TAKE 1 TABLET BY MOUTH TWICE A DAY Complies with drug therapyStart: 09-16-2023 End: 60-71-7896lomh 1 tablet by mouth twice dailyRivaroxaban (Xarelto) 2.5 mg tablet Discontinued 2.5 MG PO Twice daily 90 90 September 19, 2024 2:44pm March 04, 2025 8:06amTrelegy Ellipta 100 mcg (11 sources)take 1 puff(s) by inhalation once dailyTrelegy Ellipta 100 mcg 1 puff Inhalation Once a day ActiveTrelegy Ellipta 100 mcg-62.5 mcg-25 mcg inhalation powder (5 sources)Start: 94-97-8415ejuq 1 puff(s) by mouth once dailyTrelegy Ellipta 100 mcg-62.5 mcg-25 mcg inhalation powder INHALE 1 PUFF ONCE DAILY. RINSE MOUTH AFTER USE Start Date: 04/04/25 Status: Ordered Repeat number: 1Start: 04-20-2021 take 1 puff(s) by inhalation once dailyTrelegy Ellipta 100 mcg-62.5 mcg-25 mcg inhalation powder puff(s), Inhalation, Daily, Refills(s) 0 Start Date: 04/20/21 Status: Ordered Repeat number: 1Start: 99-61-2534mahc 1 puff(s) by inhalation once dailyTrelegy Ellipta 100 mcg-62.5 mcg-25 mcg inhalation powder puff(s), Inhalation, Daily, Refills(s) 0 Start Date: 04/20/21 Status: OrderedvalACYclovir 500 mg oral tablet (3 sources)Herpesvirus Nucleoside Analog DNA Polymerase Inhibitor, Herpes Simplex Virus Nucleoside Analog DNA Polymerase Inhibitor, Herpes Zoster Virus Nucleoside Analog DNA Polymerase InhibitorStart: 24-13-1185odmc 1 tablet by mouth twice dailyvalacyclovir 500 mg Tab TAKE 1 TABLET BY MOUTH TWICE A DAY DIRECTED Start Date: 04/04/25 Status: Ordered Repeat number: 1Valcyclovir-500 mg 500 mg (4 sources)take 1 tablet by mouth twice dailyValcyclovir-500 mg 500 mg one tab orally twice a day ActiveVentolin HFA 90 mcg/inh Aerosol (4 sources)Start: 72-94-9127phpv 1 puff(s) by inhalation every six hoursVentolin HFA 90 mcg/inh Aerosol puff(s), Inhalation, q6hr, Refill(s) 0 Start Date: 04/20/21 Status: Ordered Repeat number: 1Start: 09-24-4675xvgn 1 puff(s) by inhalation every six hoursVentolin HFA 90 mcg/inh Aerosol puff(s), Inhalation, q6hr, Refill(s) 0 Start Date: 04/20/21 Status: Ordered Completed/Discontinued Medications MedicationDrug Class(es)DatesSig (Normalized)Sig (Original)[id number] 200 actuat albuterol 0.09 mg/actuat metered dose inhaler (20 sources)beta2-Adrenergic AgonistStart: 05-13-2021 End: 69-14-5100arly 1 puff(s) by inhalation four times daily [...] oral capsule (3 sources)Non-narcotic AntitussiveStart: 07-30-2024 End: 86-46-4858Wjazcmhkiih 200 mg capsule Discontinued 200 MG PO 2-3 TIMES PER DAY as needed for cough 2023 1:00am September 04, 2024 2:25pm clopidogrel 75 mg oral tablet (5 sources)P2Y12 Platelet InhibitorStart: 09-16-2023 End: 87-19-3258gyld 1 tablet by mouth once dailyClopidogrel (Plavix) 75 mg tablet Discontinued 75 MG PO Daily September 16, 2023 1:00am September 04, 2024 2:28pmlisinopril 10 mg oral tablet (20 sources)Angiotensin Converting Enzyme InhibitorStart: 11-04-2023 End: 72-98-3735Fwfbrcvnhy 10 mg tablet Discontinued 0 .ROUTE .COMPLEX January 11, 2024 1:03pm July 0943:13pm TAKE 1 TABLET DAILYStart: 11-04-2023 End: 70-77-4872Aljpurvvmp 10 mg tablet Discontinued 0 .ROUTE .COMPLEX November 04, 2023 10:00am January 11, 2024 12:03pm TAKE 1 TABLET DAILYStart: 11-04-2023 End: 61-20-3530Bhwzdbpnor Discontinued 0 .ROUTE .COMPLEX 90 November 04, 2023 11:00am January 11, 2024 1:03pm TAKE 1 TABLET DAILYStart: 04-20-2021 End: 72-42-2419lvyn 1 tablet by mouth once dailyLisinopril 10 mg tablet Discontinued 10 MG PO Daily May 13, 2021 12:00am November 04, 2023 11:00am methylPREDNISolone 4 mg oral tablet (4 sources)CorticosteroidStart: 10-20-2023 End: 98-82-4946ojiy 1 tablet by mouth onceMethylprednisolone (Medrol (Jhonatan)) 4 mg tablets,dose pack Discontinued 0 PO per package directions 19 01October 20, 2023 12:00am May 09, 2024 8:04am PO PER PKG DIRofloxacin 3 mg/ml otic solution (6 sources)Quinolone AntimicrobialStart: 67-92-1008Aktkbstkp 0.3 % as directed Ophthalmic every 12 hrs for 5 days Sep, Not-TakingStart: 10-29-2022 Ofloxacin 0.3 % as directed Ophthalmic every 12 hrs for 5 days Sep, Not-Takingprasugrel 10 mg oral tablet (19 sources)P2Y12 Platelet InhibitorStart: 04-20-2021 End: 86-16-9242twvx 1 tablet by mouth once dailyPrasugrel Hcl 10 mg tablet Discontinued 10 MG PO Daily May 13, 2021 12:00am May 18, 2023 8:09am simvastatin 40 mg oral tablet (20 sources)HMG-CoA Reductase InhibitorStart: 04-20-2021 End: 72-95-2685afox 1 tablet by mouth at bedtimeSimvastatin 40 mg tablet Discontinued 40 MG PO Bedtime May 13, 2021 12:00am June 13, 2024 11:23amtamsulosin hydrochloride 0.4 mg oral capsule (20 sources)alpha-Adrenergic BlockerStart: 05-13-2021 End: 69-07-1734dtxq 1 capsule by mouth twice dailyTamsulosin (Flomax) 0.4 mg capsule Discontinued 0.4 MG PO Twice daily 60 May 03, 2024 9:19am June 13, 2024 11:23amStart: 61-57-1290dnhu 1 capsule by mouth once dailyTamsulosin (Flomax) [...] Problem ClassificationProblemDateDocumented DateEpisodic/ChronicAcute myocardial infarction (4 sources)Myocardial ncyuzjcfcj55-65-3129BvytjnpNbndoa and peripheral arterial embolism or thrombosis (1 source)Embolism and thrombosis of iliac arteryChronicChronic obstructive pulmonary disease and bronchiectasis (20 sources)Chronic obstructive lung disease; Translations: [Pulmonary emphysema]49-85-8481WhedaxoTshpxmc on above:Problem List clean-up per request of Phys. EHR CmteChronic obstructive pulmonary disease and bronchiectasis (6 sources)Bronchitis, not specified as acute or chronic; Translations: [Bronchitis]EpisodicComplications of surgical procedures or medical care (7 sources)Respiratory failure; Translations: [Acute postprocedural respiratory failure]Onset: 478398-38-5382IgkgmtmgTwfaukxk atherosclerosis and other heart disease (6 sources)Atherosclerotic heart disease of [place] coronary artery without angina pectoris; Translations: [ASHD SHISHMAREF IRA CA W/O ANGINA PECTORIS]Onset: 23-47-3384UutvgpxGftxqrrb atherosclerosis and other heart disease (2 sources)Presence of coronary angioplasty implant and graft; Translations: [Presence of coronary angioplastyimplant and graft]Onset: 81-90-2803Wfaavwmn Coronary atherosclerosis and other heart disease (1 source)Coronary atherosclerosis and other heart disease; Translations: [Atherosclerosis of [place] arteriesof extremities with intermittent claudication, bilateral legs]Onset: 78-36-7259Ldghavaqh of lipid metabolism (6 sources)Hypercholesterolemia; Translations: [Mixed hyperlipidemia]Onset: 623092-50-4979HgklqniAlqaimtqj hypertension (5 sources)Benign essential hypertension; Translations: [Essential (primary) hypertension]Onset: 705399-66-1788XimwxfmDrnkpovzvqkjz symptoms and ill- defined conditions (16 sources)Incomplete emptying of bladder; Translations: [Increased frequency of urination]62-56-9692GnrgvhakMzqaacsr (4 sources)Zaytulvs82-02-5727EemstlkEljwhkqvyty of prostate (11 sources)Benign prostatic hypertrophy with outflow obstruction; Translations: [Benign prostatic hyperplasia with lower urinary tract symptoms]Onset: 863093-01-6448IjfpgamJaweaginwpbu conditions of male genital organs (7 sources)Prostatitis; Translations: [Inflammatory disease of prostate, unspecified]Onset: 889884-14-1955BkypcovtSsbgozfpiwaxdg (4 sources)Voqlagkme68-27-7260SpzrnmuJtmms circulatory disease (5 sources)Peripheral arterial occlusive disease; Translations: [Disorder of arteries and arterioles, unspecified]43-84-9804IzujglbAabfk circulatory disease (4 sources)Disorder of arteries and arterioles, unspecified; Translations: [Arterial embolism and thrombosis of lower extremity]Onset: 730349-45-5594 ChronicOther circulatory disease (1 source)Other specified symptoms and signs involving the circulatory and respiratory systemsEpisodicOther lower respiratory disease (3 sources)Shortness of breath; Translations: [SHORTNESS OF BREATH]Onset: 34-80-7768UuswmxjsAxivl screening for suspected conditions (not mental disorders or infectious disease) (4 sources)Patient encounter status; Translations: [Encounter for screening for malignant neoplasm of prostate]Onset: 199372-19-5034UznwthhpXqqcsbjnkg and visceral atherosclerosis (20 sources)Peripheral vascular disease; Translations: [Peripheral vascular disease, unspecified]Onset: 05-11-2021 Resolved: 61-17-9393WvuikqiNkpgghwd codes; unclassified (1 source)Other specified postprocedural statesEpisodicScreening and history of mental health and substance abuse codes (5 sources)Ex-smoker; Translations: [Personal history of nicotine dependence] 72-26-3427IhtmvxtaNesphidgu-related disorders (20 sources)Smoker; Translations: [Nicotine dependence, unspecified, uncomplicated]Onset: 05-11-2021 Resolved: 002559-70-4478WjhyvysLuwhkws on above:Added secondary to documentation in Social History.Unclassified (4 sources)Finding of sensation of -80-9586Aqbhkanhpjvw (1 source)J44.0 - Chronic obstructive pulmonary disease with (acute) lower respiratory infection,J20.9 - Acute bronchitis, unspecified Past or Other Problems Problem ClassificationProblemDateDocumented DateEpisodic/ChronicOther lower respiratory disease (4 sources)Other nonspecific abnormal finding of lung field; Translations: [OTH NONSPECIFIC ABN FIND LNG FIELD]Onset: 97-69-8386Ionednno Results Test NameValueInterpretationReference RangeFacilityAmbulatory Visit Summaryon 00-72-6023Razyygjvnr Visit SummaryAmbulatory Visit Summary PAWAN BUSTILLO :1955 [...] APRN, Lorin Haines Where: [facility] [address] [address]- Medications What How Much When Instructions Unchanged [...] signed up for this yet, please contact [place] at [phone] to get signed up today. Language Information Language assistance services are available as needed. [facility]/Clinic Noteon 30-19-3698Yvtktmd Office/Clinic NoteUrology Office/Clinic Note Chief Complaint weak [...] with voice recognition artificial intelligence software, specifically [employer], Liqui[employer]ide and or DataNitro. Substitutions may have occurred due to the [...] Urnls Dip Stick Auto w/o Microscopy POC 71440 3. Prostate cancer screening (Z12.5: Encounter for [...] day(s), # 28 cap(s), Refills(s) 0, Pharmacy: [facility]/pharmacy #[id number], 180, cm, 04/04/25 15:44:00 EDT, Height/Length Dosing, [...] clinic: Father. Heart diseas (more content not included)...[facility] Comment on above:Result Comment: Electronically Signed By: Orzech RESTAURANT FRONT MANAGER, SLOT MACHINE DEPARTMENT FLOORPERSON-C, Lorin X\.morelia\Date and Time Signed: 04/04/25 16:13 KKU05lq 36-65-817656Rxzaiusry echo result from 03/21/2025: Leonora Cardona MD [...] Nov with Dr. Cardona. Patient verbalized understanding.[facility] HospitalOrders Onlyon 90-96-2789Cjfqnj [id number] Pawan Bustillo 1955 M Date Provider Department Center 03/21/2025 [id number], HISTORICAL [facility] Family History Problem Relation Age of Onset Coronary artery disease Mother Coronary artery disease Sister Coronary artery disease Brother Family Status - Relation Status Age at Mother Father Sister BrotherNormalUniBucyrus Community HospitalOffice Visiton 87-40-6266Uawnfl- up [id number] Pawan Bustillo 1955 M Date Provider Department Center 03/11/2025 367-LEONORA CARDONA [facility] Family History Problem Relation Age of Onset Coronary artery disease Mother Coronary artery disease Sister Coronary artery disease Brother Family Status - Relation Status Age at Mother Father Sister Brother Level of Service:27505 MD OFFICE/OUTPATIENT ESTABLISHED MOD MDM 30 [facility] 47-83-7507Wxhhfl-up visit [id number] Pawan Bustillo 1955 M Date Provider Department Center 09/18/2024 3848-ARAVIND JOSÉ [facility]OCELYNE [facility] Family History Problem Relation Age of Onset Coronary artery disease Mother Coronary artery disease Sister Coronary artery disease Brother Family Status - Relation Status Age at Mother Sister Brother Level of Service:79701 MD OFFICE/OUTPATIENT ESTABLISHED LOW MDM 20 [facility] CenterUS ankle/arm indiceson 79-92-6820TE ankle/arm indicesKettering Health Vascular [address] [place] [address] Ultrasound Report Signed Patient: Pawan Bustillo MR#: [id number] 3 : 1955 Acct:[id number] Age/Sex: 68 / M ADM Date: 09/04/24 Loc: [facility] Room: Type: [facility] CLI Attending Dr: Tom Schroeder MD Ordering Provider: Tom Schroeder MD Date of Service: 09/04/24 US/US ankle/arm indices: I70.213 - Atherosclerosis of [place] arteries of extremiti... Copies to: Tom Schroeder [...] Tom Schroeder M.D.09/04/2024 1:31 PM Dictation Location: [place] [address] Tech: Irma Jimenez Transcribed By: NOÉ 09/04/24 133 Dictated By: Tom Schroeder MD 09/04/24 133 Signed By: 09/04/24 [facility] HealthUS ankle/arm indiceson 25-80-0650FB ankle/arm indicesKettering Health Vascular [address] [place] [address] Ultrasound Report Signed Patient: Pawan Bustillo MR#: [id number] 3 : 1955 Acct:[id number] Age/Sex: 68 / M ADM Date: 01/17/24 Loc: [facility] Room: Type: REG CLI Attending Dr: Tom Schroeder MD Ordering Provider: Tom Schroeder MD Date of Service: 01/17/24 US/US ankle/arm indices: I70.213 - Atherosclerosis of [place] arteries of extremiti... Copies to: Tom Schroeder [...] Tom Schroeder M.D.01/17/2024 1:08 PM Dictation Location: [place] [address] Tech: Maki Jauregui Transcribed By: NOÉ 01/17/24 1308 Dictated By: Tom Schroeder MD 01/17/24 1308 Signed By: 01/17/24 1308[facility] Physician GroupXR chest 1V portableon 48-76-5937DT chest 1V portableASHTABULA COUNTY [place] [address] XRay Report Signed Patient: Pawan Bustillo MR#: [id number] 3 : 1955 Acct:[id number] Age/Sex: 67 / M ADM Date: 09/14/23 Loc: Room: 2B4278-5 Type: ADM IN Attending Dr: Tom Schroeder [...] Sonal Kebede M.D.09/17/2023 10:16 AM Dictation Location: [place] [address] Transcribed By: [facility] 09/17/23 1016 Dictated By: Sonal Kebede MD 09/17/23 1013 Signed By: 09/17/23 1016[facility] Physician GroupActivated Clotting Timeon 55-37-6861Qnkgmzwsj Clotting Time [id number] qHutafi87-369Kwt [facility] Physician GroupComment on above:Result Comment: Reference Range: 90-139 (Non-heparinized) PERFORMED BY: [place] [address] PATHOLOGIST [employer] RIPENING ROOM SUPERVISOR JOLIE MASON M.D.Performed By: #### CBC, FIB-C, PP #### [place] [address] USAActivated partial thromboplastin time (aPTT) in platelet poor plasma by coagulation aOrdered By: Tom Schroeder on 27-64-0733zKTV Coag (PPP) [Time]32.2 s25.1-36.5FKettering Health MiamisburgComment on above:A hematocrit value greater than 55% may lead to inaccurate results in coagulation testing. Patientshaving hematocrit values >55% require a special collection tube for coagulation studies. Please contact the laboratory at [phone] for redraw instructions.Automated basophil %Ordered By: Tom Schroeder on 96-37-0742Dnzmpfirb/100 WBC (Bld)0.7 %Normal.[facility] Comment on above:Order Comment: Comment Every 6 hour while on tPAPerformed By: #### PP, FIB-C, CBC ####[place] [id number] USAAutomated basophil countOrdered By: Tom Schroeder on 09-16-2023 Basophils (Bld) [#/Vol]0.1 10*3/uLNormal0.0-0.2FKettering Health Miamisburg Comment on above:Order Comment: Comment Every 6 hour while on tPAResult Comment: PERFORMED BY: [facility] [address] HILLARYCecilioFrannie [place] [id number] PATHOLOGIST [employer]NA RIPENING ROOM SUPERVISOR JOLIE MASON M.D.Performed By: #### PP, FIB-C, CBC ####[place] [id number] USAAutomated blood monocyte countOrdered By: Tom Schroeder on 37-08-2032Xxkwkjenf (Bld) [#/Vol]0.5 10*3/uLNormal 0.0-0.8[facility] HospitalComment on above:Order Comment: Comment Every 6 hour while on tPAPerformed By: #### PP, FIB-C, CBC ####[place] [id number] USAAutomated eosinophil %Ordered By: Tom Schroeder on 54-75-1290Cnoeyzysmbj/100 WBC (Bld)0.8 %Normal. [facility] HospitalComment on above:Order Comment: Comment Every 6 hour while on tPAPerformed By: #### PP, FIB-C, CBC ####[place] [id number] USAAutomated eosinophil count Ordered By: Tom Schroeder on 47-47-8022Gysgcmhwntk (Bld) [#/Vol]0.1 10*3/uL Normal0.0-0.45[facility]'S HospitalComment on above:Order Comment: Comment Every 6 hour while on tPAPerformed By: #### PP, FIB-C, CBC ####[place] [id number] USAAutomated monocyte % Ordered By: Tom Schroeder on 64-67-7379Aoxqrmqbg/100 WBC (Bld)6.6 %Normal. [facility] HospitalComment on above:Order Comment: Comment Every 6 hour while on tPAPerformed By: #### PP, FIB-C, CBC ####[place] [address] [place] [address] USAAutomated neutrophil %Ordered By: Tom Schroeder on 65-13-5638Afbuotwybtz/100 WBC (Bld)82.4 %Normal.[facility] HospitalComment on above:Order Comment: Comment Every 6 hour while on tPAPerformed By: #### PP, FIB-C, CBC ####[address] [address] USABlood activated clotting time by coagulation assayOrdered By: Tom Schroeder on 56-77-4674MTA Coag (Bld)131 s 90-139[facility] HospitalComment on above:Reference Range: 90-139 (Non-heparinized)Coagulation Profileon 03-15-8311xPHN Coag (Bld) [Time]32.2 s Aqbmlu01.1-36.5The [facility] Physician GroupComment on above:Order Comment: Comment Every 6 hours while on tPAResult Comment: A hematocrit value greater than 55% may lead to inaccurate results in coagulation testing. Patients having hematocrit values >55% require a special collection tube for coagulation studies. Please contact the laboratory at [phone] for redraw instructions.Performed By: #### PP, FIB-C, CBC ####[address] [address] [place] [address] USAComplete Blood Count Auto Diffon 11-39-0247Obmr Corpuscular HGB Conc34.2 g/rFIynhgk59.5-35.6The [facility] Physician GroupComment on above:Order Comment: Comment Every 6 hour while on tPA Performed By: #### PP, FIB-C, CBC ####[address] [address] USANRBC%0.1 /100{WBC}Normal0-0.5The [facility] SystemComment on above:Order Comment: Comment Every 6 hour while on tPAPerformed By: #### PP, FIB-C, CBC ####[address] [address] USAErythrocyte distribution width [Ratio] by Automated countOrdered By: Tom Schroeder on 50-71-0215Griosbdxvym distribution width (RBC) [Ratio]14.2 %Hrepcy62.0-14.8[facility]S HospitalComment on above:Order Comment: Comment Every 6 hour while on tPAPerformed By: #### PP, FIB-C, CBC ####[address] [address] USAErythrocytes [#/volume] in Blood by Automated countOrdered By: Tom Schroeder on 97-51-3679GGJ (Bld) [#/Vol]4.20 10*6/uLNormal3.90-5.60[facility] HospitalComment on above:Order Comment: Comment Every 6 hour while on tPAPerformed By: #### PP, FIB-C, CBC ####[address] [address] USAFibrinogenon 21-72-0939Tdanivsqoh411 mg/bBFxf254-473Ypu [facility] SystemComment on above:Order Comment: Comment Every 6 hours while on tPAResult Comment: A hematocrit value greater than 55% may lead to inaccurate results in coagulation testing. Patients having hematocrit values >55% require a special collection tube for coagulation studies. Please contact the laboratory at [phone] for redraw instructions. PERFORMED BY: [facility] [address] [place] [address] PATHOLOGIST [employer] SUPERVISOR JOLIE MASON M.D.Performed By: #### PP, FIB-C, CBC ####[place] [address] [place] [address] USAFibrinogen [Mass/volume] in Platelet poor plasma by Coagulation assayOrdered By: Tom Schroeder on 09-16-2023 Fibrinogen Coag (PPP) [Mass/Vol]191 mg/aO554-171TnmuzesxsDayton Children'S HospitalComment on above:A hematocrit value greater than 55% may lead to inaccurate results in coagulation testing. Patientshaving hematocrit values >55% require a special collection tube for coagulation studies. Please contact the laboratory at [phone] for redraw instructions.Hematocrit [Volume Fraction] of Blood by Automated countOrdered By: Tom Schroeder on 54-02-8715Siplhlqtqf (Bld) [Volume fraction]41.9 %Jmhmwi29.8-50.0[facility] Comment on above:Order Comment: Comment Every 6 hour while on tPAPerformed By: #### PP, FIB-C, CBC ####[facility] [address] [place] [address] USAHemoglobin [Mass/volume] in BloodOrdered By: Tom Schroeder on 58-52-3802Kaqenfiwkq (Bld) [Mass/Vol]14.3 g/xYLdcvhc97.0-17.0[facility]S HospitalComment on above:Order Comment: Comment Every 6 hour while on tPA Performed By: #### PP, FIB-C, CBC ####[facility] [address] [place] [address] USAINR in Platelet poor plasma by Coagulation assay Ordered By: Tom Schroeder on 51-49-0092CJU Coag (PPP) [Relative time]1.2 {INR} NormalDayton Children'S HospitalComment on above:INR Therapeutic Range A) Pre- and [...] - 4.5Performed By: #### PP, FIB-C, CBC ####[address] [address] USALeukocytes [#/volume] corrected for nucleated erythrocytes in Blood by Automated counOrdered By: Tom Schroeder on 56-60-1864KZC corrected for nucl RBC Auto (Bld) [#/Vol]7.6 10*3/uL4.1-10.5FK[facility] Leukocytes [#/volume] in Blood by Automated countOrdered By: Tom Schroeder on 93-00-4885ORN (Bld) [#/Vol]7.6 10*3/uLNormal4.1-10.5FKettering Health MiamisburgComment on above:Order Comment: Comment Every 6 hour while on tPAPerformed By: #### PP, FIB-C, CBC ####[address] [address] USALymphocytes [#/volume] in Blood by Automated count Ordered By: Tom Schroeder on 28-15-7471Iezukkntznh (Bld) [#/Vol]0.7 10*3/uLLow 1.00-4.8[facility]'S HospitalComment on above:Order Comment: Comment Every 6 hour while on tPAPerformed By: #### PP, FIB-C, CBC ####[address] [address] USALymphocytes/100 leukocytes in Blood by Automated countOrdered By: Tom Schroeder on 09-16-2023 Lymphocytes/100 WBC (Bld)9.5 %Normal.[facility]'S HospitalComment on above:Order Comment: Comment Every 6 hour while on tPAPerformed By: #### PP, FIB-C, CBC ####[address] [address] USAMCH [Entitic mass] by Automated countOrdered By: Tom Schroeder on 72-70-6751SIU (RBC) [Entitic mass]34.1 wsQuhyvr20.5-35.2FKettering Health MiamisburgComment on above:Order Comment: Comment Every 6 hour while on tPA Performed By: #### PP, FIB-C, CBC ####[place] [address] [place] [address] [facility] Auto (RBC) [Mass/Vol]Ordered By: Tom Schroeder on 62-74-8608VUVT (RBC) [Mass/Vol]34.2 g/dL32.5-35.6FKettering Health MiamisburgMCV [Entitic volume] by Automated countOrdered By: Tom Schroeder on 49-34-5971AYF (RBC) [Entitic vol]99.7 wVGaumxv35.5-101[facility]'S HospitalComment on above:Order Comment: Comment Every 6 hour while on tPA Performed By: #### PP, FIB-C, CBC ####[address] [address] USANeutrophils [#/volume] in Blood by Automated count Ordered By: Tom Schroeder on 69-17-8411Ygunaexwgmv (Bld) [#/Vol]6.3 10*3/uL Normal1.8-7.7FKettering Health MiamisburgComment on above:Order Comment: Comment Every 6 hour while on tPAPerformed By: #### PP, FIB-C, CBC ####[address] [address] USANucleated erythrocytes [Presence] in Blood by Automated countOrdered By: Tom Schroeder on 89-76-0843Getqfbwid RBC Auto Ql (Bld)0.1 /100{WBC}0-0.5FKettering Health MiamisburgPlatelet mean volume [Entitic volume] in Blood by Automated count Ordered By: Tom Schroeder on 47-29-1110Fsbncogv mean volume (Bld) [Entitic vol]7.7 fLNormal6.6-10.1FKettering Health MiamisburgComment on above:Order Comment: Comment Every 6 hour while on tPAPerformed By: #### PP, FIB-C, CBC ####[address] [address] [place] Platelets [#/volume] in Blood by Automated countOrdered By: Tom Schroeder on 08-33-0524Pkcnlglxe (Bld) [#/Vol]121 10*3/lWGmr728-859IrdteyoqfDayton Children'S HospitalComment on above:Order Comment: Comment Every 6 hour while on tPA Performed By: #### PP, FIB-C, CBC ####[address] [address] USAProthrombin time (PT)Ordered By: Tom Schroeder on 52-33-1510XA Coag (PPP) [Time]13.7 sHigh9.0-12.9[facility]'S HospitalComment on above:A hematocrit value greater than 55% may lead to inaccurate results in coagulation testing. Patientshaving hematocrit values >55% require a special collection tube for coagulation studies. Please contact the laboratory at [phone] for redraw instructions.Order Comment: Comment Every 6 hours while on tPAResult Comment: A hematocrit value greater than 55% may lead to inaccurate results in coagulation testing. Patients having hematocrit values >55% require a special collection tube for coagulation studies. Please contact the laboratory at [phone] for redraw instructions.Performed By: #### PP, FIB-C, CBC ####[address] [address] USABasic Metabolic Panelon 09-15-2023 Creatinine Clr Calc Nmxrtxjc94.43NormalThe [facility] Physician GroupComment on above:Result Comment: PERFORMED BY: [facility] [address] [place] [address] PATHOLOGIST [employer] SUPERVISOR JOLIE MASON M.D.Performed By: #### BMP ####[address] [address] USAGFR/1.73 sq M.predicted MDRD (S/P/Bld) [Vol rate/Area]mL/min/{1.73_m2}NormalThe [facility] Physician [facility] HospitalComment on above: Performed By: #### BMP ####[address] [address] USACalcium [Mass/volume] in Serum or PlasmaOrdered By: Niko Del Angel on 1955Bcnltpl [Mass/Vol]8.3 mg/dLLow8.6-10.3FKettering Health MiamisburgComment on above:Performed By: #### BMP ####[facility] [place] [address] USACarbon dioxide, total [Moles/volume] in Serum or PlasmaOrdered By: Niko Del Angel on 16-65-7646NP1 [Moles/Vol]29.9 mmol/CYkdlke44.0-31.0[facility]'S HospitalComment on above:Performed By: #### BMP ####[facility] [place] [address] USAChloride [Moles/volume] in Serum or PlasmaOrdered By: Niko Del Angel on 95-82-2762Znnbozdl [Moles/Vol]106 mmol/QDtbpfo87-537 [facility] HospitalComment on above:Performed By: #### BMP ####[facility] [place] [address] [facility] Coagulation Profileon 05-96-1153zZHH Coag (Bld) [Time]23.4 sLow25.1-36.5The [facility] Physician GroupComment on above:Order Comment: Comment Every 6 hours while on tPAResult Comment: A hematocrit value greater than 55% may lead to inaccurate results in coagulation testing. Patients having hematocrit values >55% require a special collection tube for coagulation studies. Please contact the laboratory at [phone] for redraw instructions.Performed By: #### CBC, FIB-C, PP #### [facility] [address] [place] [address] USAINR Coag (PPP) [Relative time]1.1 {INR}NormalThe [facility] Physician GroupComment on above:Order Comment: Comment Every [...] 4.5Performed By: #### CBC, FIB-C, PP #### [facility] [address] [place] [address] USAPT Coag (PPP) [Time]12.9 sNormal9.0-12.9The [facility] Physician GroupComment on above:Order Comment: Comment Every 6 hours while on tPAResult Comment: A hematocrit value greater than 55% may lead to inaccurate results in coagulation testing. Patients having hematocrit values >55% require a special collection tube for coagulation studies. Please contact the laboratory at [phone] for redraw instructions.Performed By: #### CBC, FIB-C, PP #### [address] [address] USAaPTT Coag (Bld) [Time]126.7 sOff scale high25.1-36.5The [facility] Physician GroupComment on above:Order Comment: Comment Every 6 hours while on tPAResult Comment: A hematocrit value greater than 55% may lead to inaccurate results in coagulation testing. Patients having hematocrit values >55% require a special collection tube for coagulation studies. Please contact the laboratory at [phone] for redraw instructions.Performed By: #### CBC, PP, FIB-C #### [address] [address] USAINR Coag (PPP) [Relative time]1.2 {INR}NormalThe [facility] Physician GroupComment on above:Order Comment: Comment Every [...] 4.5Performed By: #### CBC, PP, FIB-C #### [address] [address] USAPT Coag (PPP) [Time]13.3 sHigh9.0-12.9The [facility] Physician GroupComment on above:Order Comment: Comment Every 6 hours while on tPAResult Comment: Critical value result called at 1601 on 09/15/23 A hematocrit value greater than 55% may lead to inaccurate results in coagulation testing. Patients having hematocrit values >55% require a special collection tube for coagulation studies. Please contact the laboratory at [phone] for redraw instructions.Performed By: #### CBC, PP, FIB-C #### [facility] [address] [place] [address] USAaPTT Coag (Bld) [Time]32.6 fIsfqip17.1-36.5The [facility] Physician GroupComment on above:Order Comment: Comment Every 6 hours while on tPAResult Comment: A hematocrit value greater than 55% may lead to inaccurate results in coagulation testing. Patients having hematocrit values >55% require a special collection tube for coagulation studies. Please contact the laboratory at [phone] for redraw instructions.Performed By: #### CBC, FIB-C, PP #### [facility] [address] [place] [address] USAINR Coag (PPP) [Relative time]1.1 {INR}NormalThe [facility] Physician GroupComment on above:Order Comment: Comment Every [...] 4.5Performed By: #### CBC, FIB-C, PP #### [facility] [address] [place] [address] USAPT Coag (PPP) [Time]13.1 sHigh9.0-12.9The [facility] Physician GroupComment on above:Order Comment: Comment Every 6 hours while on tPAResult Comment: A hematocrit value greater than 55% may lead to inaccurate results in coagulation testing. Patients having hematocrit values >55% require a special collection tube for coagulation studies. Please contact the laboratory at [phone] for redraw instructions.Performed By: #### CBC, FIB-C, PP #### [facility] [address] [place] [address] USAaPTT Coag (Bld) [Time]35.4 oCmydiw65.1-36.5The [facility] Physician GroupComment on above:Order Comment: Comment Every 6 hours while on tPAResult Comment: A hematocrit value greater than 55% may lead to inaccurate results in coagulation testing. Patients having hematocrit values >55% require a special collection tube for coagulation studies. Please contact the laboratory at [phone] for redraw instructions.Performed By: #### CBC, FIB-C, PP #### [facility] [address] [place] [address] USAINR Coag (PPP) [Relative time]1.1 {INR}NormalThe [facility] Physician GroupComment on above:Order Comment: Comment Every [...] 4.5Performed By: #### CBC, FIB-C, PP #### [facility] [address] [place] [address] USAPT Coag (PPP) [Time]12.3 sNormal9.0-12.9The [facility] Physician GroupComment on above:Order Comment: Comment Every 6 hours while on tPAResult Comment: A hematocrit value greater than 55% may lead to inaccurate results in coagulation testing. Patients having hematocrit values >55% require a special collection tube for coagulation studies. Please contact the laboratory at [phone] for redraw instructions.Performed By: #### CBC, FIB-C, PP #### [facility] [address] [place] [address] USAComplete Blood Count Auto Diffon 69-46-0340Ystgcphhu (Bld) [#/Vol]0.0 10*3/uLNormal0.0-0.2The [facility] Physician GroupComment on above: Order Comment: Comment Every 6 hours while on tPAResult Comment: PERFORMED BY: [place] [address] PATHOLOGIST [employer] SUPERVISOR JOLIE MASON M.D.Performed By: #### CBC, FIB-C, PP #### [place] [address] USABasophils/100 WBC (Bld)0.4 %Normal.The [facility] Physician GroupComment on above:Order Comment: Comment Every 6 hours while on tPA Performed By: #### CBC, FIB-C, PP #### [place] [address] USAEosinophils (Bld) [#/Vol]0.0 10*3/uLNormal0.0-0.45The [facility] Physician GroupComment on above:Order Comment: Comment Every 6 hours while on tPAPerformed By: #### CBC, FIB-C, PP #### [place] [address] USAEosinophils/100 WBC (Bld)0.5 %Normal.The [facility] Physician GroupComment on above:Order Comment: Comment Every 6 hours while on tPAPerformed By: #### CBC, FIB-C, PP #### [place] [address] USAErythrocyte distribution width (RBC) [Ratio]13.8 %Normal 12.0-14.8The [facility] Physician GroupComment on above:Order Comment: Comment Every 6 hours while on tPAPerformed By: #### CBC, FIB-C, PP #### [place] [address] USAHematocrit (Bld) [Volume fraction]43.3 %Oxvylw85.8-50.0The [facility] Physician GroupComment on above:Order Comment: Comment Every 6 hours while on tPAPerformed By: #### CBC, FIB-C, PP #### [facility] [address] [place] [id number] USAHemoglobin (Bld) [Mass/Vol]14.7 g/xLYbzmmz68.0-17.0The [facility] Physician GroupComment on above:Order Comment: Comment Every 6 hours while on tPAPerformed By: #### CBC, FIB-C, PP #### [facility] [address] [place] [address] USALymphocytes (Bld) [#/Vol]0.7 10*3/uLLow1.00-4.8The [facility] Physician GroupComment on above:Order Comment: Comment Every 6 hours while on tPAPerformed By: #### CBC, FIB-C, PP #### [place] [address] USALymphocytes/100 WBC (Bld)9.1 %Normal.The [facility] Physician GroupComment on above:Order Comment: Comment Every 6 hours while on tPAPerformed By: #### CBC, FIB-C, PP #### [place] [address] USAMCH (RBC) [Entitic mass]34.1 irRyqazh56.5-35.2The [facility] Physician GroupComment on above:Order Comment: Comment Every 6 hours while on tPAPerformed By: #### CBC, FIB-C, PP #### [place] [id number] USAV (RBC) [Entitic vol]100.2 hKAfevdc14.5-101The [facility] Physician GroupComment on above:Order Comment: Comment Every 6 hours while on tPAPerformed By: #### CBC, FIB-C, PP #### [place] [address] USAMean Corpuscular HGB Conc34.1 g/pIXprsxb58.5-35.6The [facility] Physician GroupComment on above:Order Comment: Comment Every 6 hours while on tPAPerformed By: #### CBC, FIB-C, PP #### [place] [address] USAMonocytes (Bld) [#/Vol]0.5 10*3/uLNormal0.0-0.8The [facility] Physician GroupComment on above:Order Comment: Comment Every 6 hours while on tPAPerformed By: #### CBC, FIB-C, PP #### [facility] [address] [place] [address] USAMonocytes/100 WBC (Bld)6.0 %Normal.The [facility] Physician GroupComment on above:Order Comment: Comment Every 6 hours while on tPA Performed By: #### CBC, FIB-C, PP #### [place] [address] USANeutrophils (Bld) [#/Vol]6.5 10*3/uLNormal1.8-7.7The [facility] Physician GroupComment on above:Order Comment: Comment Every 6 hours while on tPAPerformed By: #### CBC, FIB-C, PP #### [place] [address] USANeutrophils/100 WBC (Bld)84.0 %Normal.The [facility] Physician GroupComment on above:Order Comment: Comment Every 6 hours while on tPAPerformed By: #### CBC, FIB-C, PP #### [place] [address] USANRBC%0.0 /100{WBC}Normal0-0.5The [facility] Comment on above:Order Comment: Comment Every 6 hours while on tPAPerformed By: #### CBC, FIB-C, PP #### [place] [address] USAPlatelet mean volume (Bld) [Entitic vol]8.0 fLNormal 6.6-10.1The [facility] Physician GroupComment on above:Order Comment: Comment Every 6 hours while on tPAPerformed By: #### CBC, FIB-C, PP #### [facility] [address] [place] [address] USAPlatelets (Bld) [#/Vol]123 10*3/nVXnl868-010Udl [facility] Physician GroupComment on above:Order Comment: Comment Every 6 hours while on tPAPerformed By: #### CBC, FIB-C, PP #### [place] [address] USARBC (Bld) [#/Vol]4.32 10*6/uLNormal3.90-5.60The [facility] Physician GroupComment on above:Order Comment: Comment Every 6 hours while on tPAPerformed By: #### CBC, FIB-C, PP #### [place] [address] USAWBC (Bld) [#/Vol]7.8 10*3/uLNormal4.1-10.5The [facility] Physician GroupComment on above:Order Comment: Comment Every 6 hours while on tPAPerformed By: #### CBC, FIB-C, PP #### [place] [address] USABasophils (Bld) [#/Vol]0.0 10*3/uLNormal0.0-0.2The [facility] Physician GroupComment on above:Order Comment: Comment Every 6 hour while on tPAResult Comment: PERFORMED BY: [place] [address] PATHOLOGIST [employer] SUPERVISOR JOLIE MASON M.D.Performed By: #### CBC, PP, FIB-C #### [place] [address] USABasophils/100 WBC (Bld)0.4 %Normal.The [facility] Physician GroupComment on above:Order Comment: Comment Every 6 hour while on tPAPerformed By: #### CBC, PP, FIB-C #### [place] [address] USAEosinophils (Bld) [#/Vol]0.0 10*3/uLNormal0.0-0.45The [facility] Physician GroupComment on above:Order Comment: Comment Every 6 hour while on tPAPerformed By: #### CBC, PP, FIB-C #### [address] [place] [address] USAEosinophils/100 WBC (Bld)0.4 %Normal.The [facility] Physician GroupComment on above:Order Comment: Comment Every 6 hour while on tPA Performed By: #### CBC, PP, FIB-C #### [place] [address] USAErythrocyte distribution width (RBC) [Ratio]14.1 %Normal 12.0-14.8The [facility] Physician GroupComment on above:Order Comment: Comment Every 6 hour while on tPAPerformed By: #### CBC, PP, FIB-C #### [place] [address] USAHematocrit (Bld) [Volume fraction]43.4 %Hgvcao63.8-50.0The [facility] Physician GroupComment on above:Order Comment: Comment Every 6 hour while on tPAPerformed By: #### CBC, PP, FIB-C #### [place] [address] USAHemoglobin (Bld) [Mass/Vol]14.8 g/iVFosszm09.0-17.0The [facility] Physician GroupComment on above:Order Comment: Comment Every 6 hour while on tPAPerformed By: #### CBC, PP, FIB-C #### [place] [address] USALymphocytes (Bld) [#/Vol]0.7 10*3/uLLow1.00-4.8The [facility] Physician GroupComment on above:Order Comment: Comment Every 6 hour while on tPAPerformed By: #### CBC, PP, FIB-C #### [place] [id number] USALymphocytes/100 WBC (Bld)7.7 %Normal.The [facility] Physician GroupComment on above:Order Comment: Comment Every 6 hour while on tPA Performed By: #### CBC, PP, FIB-C #### [place] [address] USAMCH (RBC) [Entitic mass]33.9 gwHrzgjm72.5-35.2The [facility] Physician GroupComment on above:Order Comment: Comment Every 6 hour while on tPAPerformed By: #### CBC, PP, FIB-C #### [place] [address] USAMCV (RBC) [Entitic vol]99.7 jRTxozlm78.5-101The [facility] Physician GroupComment on above:Order Comment: Comment Every 6 hour while on tPA Performed By: #### CBC, PP, FIB-C #### [place] [address] USAMean Corpuscular HGB Conc34.0 g/sYMyzhqm30.5-35.6The [facility] Physician GroupComment on above:Order Comment: Comment Every 6 hour while on tPAPerformed By: #### CBC, PP, FIB-C #### [place] [address] USAMonocytes (Bld) [#/Vol]0.5 10*3/uLNormal0.0-0.8The [facility] Physician GroupComment on above:Order Comment: Comment Every 6 hour while on tPAPerformed By: #### CBC, PP, FIB-C #### [place] [address] USAMonocytes/100 WBC (Bld)5.8 %Normal.The [facility] Physician GroupComment on above:Order Comment: Comment Every 6 hour while on tPAPerformed By: #### CBC, PP, FIB-C #### [place] [address] USANeutrophils (Bld) [#/Vol]7.3 10*3/uLNormal1.8-7.7The [facility] Physician GroupComment on above:Order Comment: Comment Every 6 hour while on tPAPerformed By: #### CBC, PP, FIB-C #### [place] [address] USANeutrophils/100 WBC (Bld)85.7 %Normal.The [facility] Physician GroupComment on above:Order Comment: Comment Every 6 hour while on tPA Performed By: #### CBC, PP, FIB-C #### [facility] [address] [place] [address] USANRBC%0.1 /100{WBC}Normal0-0.5The [facility] Comment on above:Order Comment: Comment Every 6 hour while on tPAPerformed By: #### CBC, PP, FIB-C #### [place] [address] USAPlatelet mean volume (Bld) [Entitic vol]7.4 fLNormal 6.6-10.1The [facility] Physician GroupComment on above:Order Comment: Comment Every 6 hour while on tPAPerformed By: #### CBC, PP, FIB-C #### [place] [address] USAPlatelets (Bld) [#/Vol]133 10*3/uOFqp515-538Pmq [facility] Physician GroupComment on above:Order Comment: Comment Every 6 hour while on tPA Performed By: #### CBC, PP, FIB-C #### [place] [address] USARBC (Bld) [#/Vol]4.36 10*6/uLNormal3.90-5.60The [facility] Physician GroupComment on above:Order Comment: Comment Every 6 hour while on tPA Performed By: #### CBC, PP, FIB-C #### [place] [address] USAWBC (Bld) [#/Vol]8.5 10*3/uLNormal4.1-10.5The [facility] Physician GroupComment on above:Order Comment: Comment Every 6 hour while on tPA Performed By: #### CBC, PP, FIB-C #### [place] [address] USABasophils (Bld) [#/Vol]0.0 10*3/uLNormal0.0-0.2The [facility] Physician GroupComment on above:Order Comment: Comment Every 6 hours while on tPAResult Comment: PERFORMED BY: [address] [place] [address] PATHOLOGIST [employer] RIPEN[employer] ROOM SUPERVISOR JOLIE MASON M.D.Performed By: #### CBC, FIB-C, PP #### [place] [address] USABasophils/100 WBC (Bld)0.2 %Normal.The [facility] Physician GroupComment on above:Order Comment: Comment Every 6 hours while on tPA Performed By: #### CBC, FIB-C, PP #### [place] [address] USAEosinophils (Bld) [#/Vol]0.1 10*3/uLNormal0.0-0.45The [facility] Physician GroupComment on above:Order Comment: Comment Every 6 hours while on tPAPerformed By: #### CBC, FIB-C, PP #### [place] [address] USAEosinophils/100 WBC (Bld)0.9 %Normal.The [facility] Physician GroupComment on above:Order Comment: Comment Every 6 hours while on tPAPerformed By: #### CBC, FIB-C, PP #### [place] [address] USAErythrocyte distribution width (RBC) [Ratio]14.0 %Normal 12.0-14.8The [facility] Physician GroupComment on above:Order Comment: Comment Every 6 hours while on tPAPerformed By: #### CBC, FIB-C, PP #### [place] [address] USAHematocrit (Bld) [Volume fraction]45.3 %Hkxmll43.8-50.0The [facility] Physician GroupComment on above:Order Comment: Comment Every 6 hours while on tPAPerformed By: #### CBC, FIB-C, PP #### [place] [address] USAHemoglobin (Bld) [Mass/Vol]15.0 g/oXWrguqf60.0-17.0The [facility] Physician GroupComment on above:Order Comment: Comment Every 6 hours while on tPAPerformed By: #### CBC, FIB-C, PP #### [facility] [address] [place] [address] USALymphocytes (Bld) [#/Vol]0.9 10*3/uLLow1.00-4.8The [facility] Physician GroupComment on above:Order Comment: Comment Every 6 hours while on tPAPerformed By: #### CBC, FIB-C, PP #### [facility] [address] [place] [id number] USALymphocytes/100 WBC (Bld)12.0 %Normal.The [facility] Physician GroupComment on above:Order Comment: Comment Every 6 hours while on tPAPerformed By: #### CBC, FIB-C, PP #### [place] [address] USAMCH (RBC) [Entitic mass]33.1 bgBcmikb02.5-35.2The [facility] Physician GroupComment on above:Order Comment: Comment Every 6 hours while on tPAPerformed By: #### CBC, FIB-C, PP #### [place] [address] USAMCV (RBC) [Entitic vol]100.2 xKMudnhk31.5-101The [facility] Physician GroupComment on above:Order Comment: Comment Every 6 hours while on tPAPerformed By: #### CBC, FIB-C, PP #### [place] [address] USAMean Corpuscular HGB Conc33.1 g/oGKhnztm28.5-35.6The [facility] Physician GroupComment on above:Order Comment: Comment Every 6 hours while on tPAPerformed By: #### CBC, FIB-C, PP #### [place] [address] USAMonocytes (Bld) [#/Vol]0.5 10*3/uLNormal0.0-0.8The [facility] Physician GroupComment on above:Order Comment: Comment Every 6 hours while on tPAPerformed By: #### CBC, FIB-C, PP #### [facility] [address] [place] [id number] USAMonocytes/100 WBC (Bld)7.2 %Normal.The [facility] Physician GroupComment on above:Order Comment: Comment Every 6 hours while on tPA Performed By: #### CBC, FIB-C, PP #### [place] [address] USANeutrophils (Bld) [#/Vol]6.0 10*3/uLNormal1.8-7.7The [facility] Physician GroupComment on above:Order Comment: Comment Every 6 hours while on tPAPerformed By: #### CBC, FIB-C, PP #### [place] [address] USANeutrophils/100 WBC (Bld)79.7 %Normal.The [facility] Physician GroupComment on above:Order Comment: Comment Every 6 hours while on tPAPerformed By: #### CBC, FIB-C, PP #### [place] [address] USANRBC%0.1 /100{WBC}Normal0-0.5The [facility] Comment on above:Order Comment: Comment Every 6 hours while on tPAPerformed By: #### CBC, FIB-C, PP #### [place] [address] USAPlatelet mean volume (Bld) [Entitic vol]7.9 fLNormal 6.6-10.1The [facility] Physician GroupComment on above:Order Comment: Comment Every 6 hours while on tPAPerformed By: #### CBC, FIB-C, PP #### [facility] [address] [place] [address] USAPlatelets (Bld) [#/Vol]138 10*3/rCDxx965-966Lgb [facility] Physician GroupComment on above:Order Comment: Comment Every 6 hours while on tPAPerformed By: #### CBC, FIB-C, PP #### [place] [address] USARBC (Bld) [#/Vol]4.52 10*6/uLNormal3.90-5.60The [facility] Physician GroupComment on above:Order Comment: Comment Every 6 hours while on tPAPerformed By: #### CBC, FIB-C, PP #### [place] [address] USAWBC (Bld) [#/Vol]7.5 10*3/uLNormal4.1-10.5The [facility] Physician GroupComment on above:Order Comment: Comment Every 6 hours while on tPAPerformed By: #### CBC, FIB-C, PP #### [place] [address] USABasophils (Bld) [#/Vol]0.0 10*3/uLNormal0.0-0.2The [facility] Physician GroupComment on above:Order Comment: Comment Every 6 hour while on tPAResult Comment: PERFORMED BY: [place] [address] PATHOLOGIST [employer] RIPEN[employer] ROOM SUPERVISOR JOLIE MASON M.D.Performed By: #### CBC, FIB-C, PP #### [place] [address] USABasophils/100 WBC (Bld)0.3 %Normal.The [facility] Physician GroupComment on above:Order Comment: Comment Every 6 hour while on tPAPerformed By: #### CBC, FIB-C, PP #### [place] [address] USAEosinophils (Bld) [#/Vol]0.2 10*3/uLNormal0.0-0.45The [facility] Physician GroupComment on above:Order Comment: Comment Every 6 hour while on tPAPerformed By: #### CBC, FIB-C, PP #### [place] [id number] USAEosinophils/100 WBC (Bld)3.7 %Normal.The [facility] Physician GroupComment on above:Order Comment: Comment Every 6 hour while on tPA Performed By: #### CBC, FIB-C, PP #### [place] [address] USAErythrocyte distribution width (RBC) [Ratio]14.0 %Normal 12.0-14.8The [facility] Physician GroupComment on above:Order Comment: Comment Every 6 hour while on tPAPerformed By: #### CBC, FIB-C, PP #### [place] [address] USAHematocrit (Bld) [Volume fraction]45.4 %Wqtlqx06.8-50.0The [facility] Physician GroupComment on above:Order Comment: Comment Every 6 hour while on tPAPerformed By: #### CBC, FIB-C, PP #### [place] [address] USAHemoglobin (Bld) [Mass/Vol]15.4 g/hAIxgtbk50.0-17.0The [facility] Physician GroupComment on above:Order Comment: Comment Every 6 hour while on tPAPerformed By: #### CBC, FIB-C, PP #### [place] [address] USALymphocytes (Bld) [#/Vol]1.4 10*3/uLNormal1.00-4.8The [facility] Physician GroupComment on above:Order Comment: Comment Every 6 hour while on tPAPerformed By: #### CBC, FIB-C, PP #### [place] [address] USALymphocytes/100 WBC (Bld)22.9 %Normal.The [facility] Physician GroupComment on above:Order Comment: Comment Every 6 hour while on tPA Performed By: #### CBC, FIB-C, PP #### [place] [id number] USAMCH (RBC) [Entitic mass]33.9 lwKgylsz88.5-35.2The [facility] Physician GroupComment on above:Order Comment: Comment Every 6 hour while on tPAPerformed By: #### CBC, FIB-C, PP #### [place] [address] USAMCV (RBC) [Entitic vol]99.8 oZHkhxkl97.5-101The [facility] Physician GroupComment on above:Order Comment: Comment Every 6 hour while on tPA Performed By: #### CBC, FIB-C, PP #### [facility] [address] [place] [id number] USAMean Corpuscular HGB Conc34.0 g/cLOppfbe62.5-35.6The [facility] Physician GroupComment on above:Order Comment: Comment Every 6 hour while on tPAPerformed By: #### CBC, FIB-C, PP #### [place] [address] USAMonocytes (Bld) [#/Vol]0.5 10*3/uLNormal0.0-0.8The [facility] Physician GroupComment on above:Order Comment: Comment Every 6 hour while on tPAPerformed By: #### CBC, FIB-C, PP #### [place] [address] USAMonocytes/100 WBC (Bld)8.6 %Normal.The [facility] Physician GroupComment on above:Order Comment: Comment Every 6 hour while on tPAPerformed By: #### CBC, FIB-C, PP #### [place] [address] USANeutrophils (Bld) [#/Vol]3.9 10*3/uLNormal1.8-7.7The [facility] Physician GroupComment on above:Order Comment: Comment Every 6 hour while on tPAPerformed By: #### CBC, FIB-C, PP #### [place] [id number] USANeutrophils/100 WBC (Bld)64.5 %Normal.The [facility] Physician GroupComment on above:Order Comment: Comment Every 6 hour while on tPA Performed By: #### CBC, FIB-C, PP #### [place] [address] USANRBC%0.1 /100{WBC}Normal0-0.5The [facility] Comment on above:Order Comment: Comment Every 6 hour while on tPAPerformed By: #### CBC, FIB-C, PP #### [facility] [address] [place] [address] USAPlatelet mean volume (Bld) [Entitic vol]7.7 fLNormal 6.6-10.1The [facility] Physician GroupComment on above:Order Comment: Comment Every 6 hour while on tPAPerformed By: #### CBC, FIB-C, PP #### [facility] [address] [place] [address] USAPlatelets (Bld) [#/Vol]145 10*3/bXUnl775-467Mpw [facility] Physician GroupComment on above:Order Comment: Comment Every 6 hour while on tPA Performed By: #### CBC, FIB-C, PP #### [facility] [address] [place] [address] USARBC (Bld) [#/Vol]4.55 10*6/uLNormal3.90-5.60The [facility] Physician GroupComment on above:Order Comment: Comment Every 6 hour while on tPA Performed By: #### CBC, FIB-C, PP #### [facility] [address] [place] [address] USAWBC (Bld) [#/Vol]6.0 10*3/uLNormal4.1-10.5The [facility] Physician GroupComment on above:Order Comment: Comment Every 6 hour while on tPA Performed By: #### CBC, FIB-C, PP #### [facility] [address] [place] [address] USACreatinine [Mass/volume] in Serum or PlasmaOrdered By: Niko Del Angel on 26-20-0074Rtfxebqghn [Mass/Vol]0.69 mg/dLLow0.70-1.30 [facility] HospitalComment on above:Performed By: #### BMP ####[facility] [address] [place] [id number] USAECG 12 lead ECGon [id number] 12 lead ECGASHT[facility]UL[facility] [place] [address] [place] [address] Electrocardiograph Report Signed Patient: Pawan Bustillo MR#: [id number] 3 : 1955 Acct:[id number] Age/Sex: 67 / M ADM Date: 09/14/23 Loc: Room: [address] [place] [address] Type: ADM IN Attending Dr: Tom Schroeder [...] previous ECGs available Confirmed by Leonora York ([id number]) on 09/16/2023 6:19:14 PM Referred By: Electronically Signed By:Leonora York Transcribed By: MUS Signed By Leonora York MD 09/16/23 1819[facility] Physician GroupFibrinogenon 09-15-2023 Jiweynzmyf543 mg/pPXkc496-350Fet [facility]ician [facility] HospitalComment on above:Order Comment: Comment Every 6 hours while on tPAResult Comment: A hematocrit value greater than 55% may lead to inaccurate results in coagulation testing. Patients having hematocrit values >55% require a special collection tube for coagulation studies. Please contact the laboratory at [phone] for redraw instructions. PERFORMED BY: [place] [address] PATHOLOGIST BANANA RIPENING ROOM SUPERVISOR JOLIE MASON M.D.Performed By: #### CBC, FIB-C, PP #### [place] [address] BFPDtpnceuyrb274 mg/hHSwi731-376Uqr [facility] Physician [facility] Comment on above:Order Comment: Comment Every 6 hours while on tPAResult Comment: A hematocrit value greater than 55% may lead to inaccurate results in coagulation testing. Patients having hematocrit values >55% require a special collection tube for coagulation studies. Please contact the laboratory at [phone] for redraw instructions. PERFORMED BY: [address] [address] PATHOLOGIST BA[employer] RIPENING ROOM SUPERVISOR JOLIE MASON M.D.Performed By: #### CBC, PP, FIB-C #### [facility] [address] [place] [address] BNQMtipvipeux644 mg/nPZxp221-333Kol [facility] Comment on above:Order Comment: Comment Every 6 hours while on tPAResult Comment: A hematocrit value greater than 55% may lead to inaccurate results in coagulation testing. Patients having hematocrit values >55% require a special collection tube for coagulation studies. Please contact the laboratory at [phone] for redraw instructions. PERFORMED BY: [address] [address] PATHOLOGIST BANA[employer] RIPENING ROOM SUPERVISOR JOLIE MASON M.D.Performed By: #### CBC, FIB-C, PP #### [address] [address] VXWAztdhnaijp689 mg/yCJmn873-726Pzi [facility] Comment on above:Order Comment: Comment Every 6 hours while on tPAResult Comment: A hematocrit value greater than 55% may lead to inaccurate results in coagulation testing. Patients having hematocrit values >55% require a special collection tube for coagulation studies. Please contact the laboratory at [phone] for redraw instructions. PERFORMED BY: [place] [id number] PATHOLOGIST BANANA RIPENING ROOM SUPERVISOR JOLIE MASON M.D.Performed By: #### CBC, FIB-C, PP #### [facility] [address] [place] [address] USAGlucose [Mass/volume] in Serum or PlasmaOrdered By: Niko Del Angel on 02-49-3383Sfnbcjk [Mass/Vol]95 mg/eDByvioh86-797OkvfsedsyDayton Children'S HospitalComment on above:ADA recommended reference rangeRandom Glucose Reference [...] ADA recommended reference rangePerformed By: #### BMP ####[address] [address] USANo Panel InformationOrdered By: Niko Del Angel on 79-00-4935Bxpwxjsbf GFR (CKD-EPI)> 60.0 mL/MinDayton Children'S HospitalPharmacy Creatinine Clearance (Chem95.43[facility]'S HospitalPotassium [Moles/volume] in Serum or PlasmaOrdered By: Niko Del Angel on 67-97-8916Rqbjuecja [Moles/Vol]4.7 mmol/LNormal3.5-5.1 [facility] HospitalComment on above:Performed By: #### BMP ####[address] [address] USASerum or plasma anion gap determinationOrdered By: Niko Del Angel on 09-15-2023 Anion gap [Moles/Vol]5.8 mmol/LLow6.0-15.0[facility] Comment on above:Performed By: #### BMP ####[address] [address] USASodium [Moles/volume] in Serum or Plasma Ordered By: Niko Del Angel on 32-03-0346Qrjpyr [Moles/Vol]137 mmol/LNormal 136-145[facility]S HospitalComment on above:Performed By: #### BMP ####[address] [address] USAUrea nitrogen [Mass/volume] in Serum or PlasmaOrdered By: Niko Del Angel on 87-42-3083Idxv nitrogen [Mass/Vol]11 mg/dLNormal7-25[facility]S HospitalComment on above:Performed By: #### BMP ####[address] [address] USAABO/Rh Retypeon 75-21-4529YVH/RH Recheck ResultPositiveNormalThe [facility] Physician GroupComment on above:Result Comment: PERFORMED BY: [place] [id number] PATHOLOGIST BA[employer] RIPENING ROOM SUPERVISOR JOLIE MASON M.D.Blood Urea Nitrogenon 68-14-4180Orhp nitrogen [Mass/Vol]16 mg/dL Normal7-25The [facility] Physician GroupComment on above:Performed By: #### CREAT, BUN #### [place] [id number] USACoagulation Profileon [id number] Coag (Bld) [Time]32.2 oVmnycq33.1-36.5The [facility] Physician GroupComment on above:Order Comment: Comment Every 6 hours while on tPAResult Comment: A hematocrit value greater than 55% may lead to inaccurate results in coagulation testing. Patients having hematocrit values >55% require a special collection tube for coagulation studies. Please contact the laboratory at [phone] for redraw instructions.Performed By: #### CBC, FIB-C, PP #### [address] [address] USAINR Coag (PPP) [Relative time]1.0 {INR}NormalThe [facility] Physician GroupComment on above:Order Comment: Comment Every [...] 4.5Performed By: #### CBC, FIB-C, PP #### [address] [address] USAPT Coag (PPP) [Time]11.5 sNormal9.0-12.9The [facility] Physician GroupComment on above:Order Comment: Comment Every 6 hours while on tPAResult Comment: A hematocrit value greater than 55% may lead to inaccurate results in coagulation testing. Patients having hematocrit values >55% require a special collection tube for coagulation studies. Please contact the laboratory at [phone] for redraw instructions.Performed By: #### CBC, FIB-C, PP #### [facility] [address] [place] [address] USAaPTT Coag (Bld) [Time]30.0 gRsbcoe00.1-36.5The [facility] Physician GroupComment on above:Order Comment: Comment Every 6 hours while on tPAResult Comment: A hematocrit value greater than 55% may lead to inaccurate results in coagulation testing. Patients having hematocrit values >55% require a special collection tube for coagulation studies. Please contact the laboratory at [phone] for redraw instructions.Performed By: #### CBC, FIB-C, PP #### [facility] [address] [place] [address] USAINR Coag (PPP) [Relative time]1.0 {INR}NormalThe [facility] Physician GroupComment on above:Order Comment: Comment Every [...] 4.5Performed By: #### CBC, FIB-C, PP #### [facility] [address] [place] [address] USAPT Coag (PPP) [Time]12.1 sNormal9.0-12.9The [facility] Physician GroupComment on above:Order Comment: Comment Every 6 hours while on tPAResult Comment: A hematocrit value greater than 55% may lead to inaccurate results in coagulation testing. Patients having hematocrit values >55% require a special collection tube for coagulation studies. Please contact the laboratory at [phone] for redraw instructions.Performed By: #### CBC, FIB-C, PP #### [facility] [address] [place] [address] USAaPTT Coag (Bld) [Time]81.7 sHigh25.1-36.5The [facility] Physician GroupComment on above:Order Comment: Comment Every 6 hours while on tPAResult Comment: A hematocrit value greater than 55% may lead to inaccurate results in coagulation testing. Patients having hematocrit values >55% require a special collection tube for coagulation studies. Please contact the laboratory at [phone] for redraw instructions.Performed By: #### CBC, FIB-C, PP #### [place] [address] USAINR Coag (PPP) [Relative time]1.1 {INR}NormalThe [facility] Physician GroupComment on above:Order Comment: Comment Every [...] 4.5Performed By: #### CBC, FIB-C, PP #### [address] [address] USAPT Coag (PPP) [Time]12.4 sNormal9.0-12.9The [facility] Physician GroupComment on above:Order Comment: Comment Every 6 hours while on tPAResult Comment: A hematocrit value greater than 55% may lead to inaccurate results in coagulation testing. Patients having hematocrit values >55% require a special collection tube for coagulation studies. Please contact the laboratory at [phone] for redraw instructions.Performed By: #### CBC, FIB-C, PP #### [address] [address] USAComplete Blood Count Auto Diffon [id number] (Bld) [#/Vol]0.0 10*3/uLNormal0.0-0.2The [facility] Physician GroupComment on above: Order Comment: Comment Every 6 hours while on tPAResult Comment: PERFORMED BY: [place] [address] PATHOLOGIST [employer] RIPENING ROOM SUPERVISOR JOLIE MASON M.D.Performed By: #### CBC, FIB-C, PP #### [place] [address] USABasophils/100 WBC (Bld)0.8 %Normal.The [facility] Physician GroupComment on above:Order Comment: Comment Every 6 hours while on tPA Performed By: #### CBC, FIB-C, PP #### [place] [address] USAEosinophils (Bld) [#/Vol]0.3 10*3/uLNormal0.0-0.45The [facility] Physician GroupComment on above:Order Comment: Comment Every 6 hours while on tPAPerformed By: #### CBC, FIB-C, PP #### [place] [address] USAEosinophils/100 WBC (Bld)4.1 %Normal.The [facility] Physician GroupComment on above:Order Comment: Comment Every 6 hours while on tPAPerformed By: #### CBC, FIB-C, PP #### [place] [address] USAErythrocyte distribution width (RBC) [Ratio]14.1 %Normal 12.0-14.8The [facility] Physician GroupComment on above:Order Comment: Comment Every 6 hours while on tPAPerformed By: #### CBC, FIB-C, PP #### [place] [address] USAHematocrit (Bld) [Volume fraction]44.4 %Fhwlxy03.8-50.0The [facility] Physician GroupComment on above:Order Comment: Comment Every 6 hours while on tPAPerformed By: #### CBC, FIB-C, PP #### [place] [address] USAHemoglobin (Bld) [Mass/Vol]15.0 g/wDSjanww07.0-17.0The [facility] Physician GroupComment on above:Order Comment: Comment Every 6 hours while on tPAPerformed By: #### CBC, FIB-C, PP #### [place] [address] USALymphocytes (Bld) [#/Vol]1.3 10*3/uLNormal1.00-4.8The [facility] Physician GroupComment on above:Order Comment: Comment Every 6 hours while on tPAPerformed By: #### CBC, FIB-C, PP #### [place] [address] USALymphocytes/100 WBC (Bld)22.1 %Normal.The [facility] Physician GroupComment on above:Order Comment: Comment Every 6 hours while on tPAPerformed By: #### CBC, FIB-C, PP #### [place] [address] USAMCH (RBC) [Entitic mass]33.9 ovAvxhmv32.5-35.2The [facility] Physician GroupComment on above:Order Comment: Comment Every 6 hours while on tPAPerformed By: #### CBC, FIB-C, PP #### [place] [address] USAMCV (RBC) [Entitic vol]100.2 qYPocleg52.5-101The [facility] Physician GroupComment on above:Order Comment: Comment Every 6 hours while on tPAPerformed By: #### CBC, FIB-C, PP #### [place] [address] USAMean Corpuscular HGB Conc33.8 g/zSTzabjk85.5-35.6The [facility] Physician GroupComment on above:Order Comment: Comment Every 6 hours while on tPAPerformed By: #### CBC, FIB-C, PP #### [place] [address] USAMonocytes (Bld) [#/Vol]0.4 10*3/uLNormal0.0-0.8The [facility] Physician GroupComment on above:Order Comment: Comment Every 6 hours while on tPAPerformed By: #### CBC, FIB-C, PP #### [place] [address] USAMonocytes/100 WBC (Bld)7.3 %Normal.The [facility] Physician GroupComment on above:Order Comment: Comment Every 6 hours while on tPA Performed By: #### CBC, FIB-C, PP #### [facility] [address] [place] [address] USANeutrophils (Bld) [#/Vol]4.0 10*3/uLNormal1.8-7.7The [facility] Physician GroupComment on above:Order Comment: Comment Every 6 hours while on tPAPerformed By: #### CBC, FIB-C, PP #### [facility] [address] [place], [place] [id number] USANeutrophils/100 WBC (Bld)65.7 %Normal.The [facility] Physician GroupComment on above:Order Comment: Comment Every 6 hours while on tPAPerformed By: #### CBC, FIB-C, PP #### [place] [address] USANRBC%0.2 /100{WBC}Normal0-0.5[facility] Comment on above:Order Comment: Comment Every 6 hours while on tPAPerformed By: #### CBC, FIB-C, PP #### [facility] [address] [place], [place] [id number] USAPlatelet mean volume (Bld) [Entitic vol]8.0 fLNormal 6.6-10.1The [facility] Physician GroupComment on above:Order Comment: Comment Every 6 hours while on tPAPerformed By: #### CBC, FIB-C, PP #### [facility] [address] [place], [place] [id number] USAPlatelets (Bld) [#/Vol]153 10*3/hBTrswfb666-015Jxo [facility] Physician GroupComment on above:Order Comment: Comment Every 6 hours while on tPAPerformed By: #### CBC, FIB-C, PP #### [place] [id number] USARBC (Bld) [#/Vol]4.43 10*6/uLNormal3.90-5.60The [facility] Physician GroupComment on above:Order Comment: Comment Every 6 hours while on tPAPerformed By: #### CBC, FIB-C, PP #### [place] [address] USAWBC (Bld) [#/Vol]6.1 10*3/uLNormal4.1-10.5The [facility] Physician GroupComment on above:Order Comment: Comment Every 6 hours while on tPAPerformed By: #### CBC, FIB-C, PP #### [place] [address] USABasophils (Bld) [#/Vol]0.0 10*3/uLNormal0.0-0.2The [facility] Physician GroupComment on above:Order Comment: Comment Every 6 hour while on tPAResult Comment: PERFORMED BY: [place] [address] PATHOLOGIST [employer] RIPEN[employer] ROOM SUPERVISOR JOLIE MASON M.D.Performed By: #### FIB-C, CBC, PP #### [place] [address] USABasophils/100 WBC (Bld)0.7 %Normal.The [facility] Physician GroupComment on above:Order Comment: Comment Every 6 hour while on tPAPerformed By: #### FIB-C, CBC, PP #### [place] [address] USAEosinophils (Bld) [#/Vol]0.2 10*3/uLNormal0.0-0.45The [facility] Physician GroupComment on above:Order Comment: Comment Every 6 hour while on tPAPerformed By: #### FIB-C, CBC, PP #### [place] [address] USAEosinophils/100 WBC (Bld)3.9 %Normal.The [facility] Physician GroupComment on above:Order Comment: Comment Every 6 hour while on tPA Performed By: #### FIB-C, CBC, PP #### [place] [address] USAErythrocyte distribution width (RBC) [Ratio]13.6 %Normal 12.0-14.8The [facility] Physician GroupComment on above:Order Comment: Comment Every 6 hour while on tPAPerformed By: #### FIB-C, CBC, PP #### [place] [address] USAHematocrit (Bld) [Volume fraction]44.6 %Fsfvtd60.8-50.0The [facility] Physician GroupComment on above:Order Comment: Comment Every 6 hour while on tPAPerformed By: #### FIB-C, CBC, PP #### [place] [address] USAHemoglobin (Bld) [Mass/Vol]14.9 g/yOWnnclg84.0-17.0The [facility] Physician GroupComment on above:Order Comment: Comment Every 6 hour while on tPAPerformed By: #### FIB-C, CBC, PP #### [place] [address] USALymphocytes (Bld) [#/Vol]1.4 10*3/uLNormal1.00-4.8The [facility] Physician GroupComment on above:Order Comment: Comment Every 6 hour while on tPAPerformed By: #### FIB-C, CBC, PP #### [place] [id number] USALymphocytes/100 WBC (Bld)22.1 %Normal.The [facility] Physician GroupComment on above:Order Comment: Comment Every 6 hour while on tPA Performed By: #### FIB-C, CBC, PP #### [place] [phone] USAMCH (RBC) [Entitic mass]33.5 tpUriiye28.5-35.2The [facility] Physician GroupComment on above:Order Comment: Comment Every 6 hour while on tPAPerformed By: #### FIB-C, CBC, PP #### [place] [phone] USAMCV (RBC) [Entitic vol]100.4 tGFmmeir51.5-101The [facility] Physician GroupComment on above:Order Comment: Comment Every 6 hour while on tPA Performed By: #### FIB-C, CBC, PP #### [place] [address] USAMean Corpuscular HGB Conc33.4 g/xWMwlyqu53.5-35.6The [facility] Physician GroupComment on above:Order Comment: Comment Every 6 hour while on tPAPerformed By: #### FIB-C, CBC, PP #### [place] [address] USAMonocytes (Bld) [#/Vol]0.5 10*3/uLNormal0.0-0.8The [facility] Physician GroupComment on above:Order Comment: Comment Every 6 hour while on tPAPerformed By: #### FIB-C, CBC, PP #### [place] [address] USAMonocytes/100 WBC (Bld)7.5 %Normal.The [facility] Physician GroupComment on above:Order Comment: Comment Every 6 hour while on tPAPerformed By: #### FIB-C, CBC, PP #### [place] [address] USANeutrophils (Bld) [#/Vol]4.0 10*3/uLNormal1.8-7.7The [facility] Physician GroupComment on above:Order Comment: Comment Every 6 hour while on tPAPerformed By: #### FIB-C, CBC, PP #### [place] [address] USANeutrophils/100 WBC (Bld)65.8 %Normal.The [facility] Physician GroupComment on above:Order Comment: Comment Every 6 hour while on tPA Performed By: #### FIB-C, CBC, PP #### [place] [address] USANRBC%0.0 /100{WBC}Normal0-0.5The [facility] Comment on above:Order Comment: Comment Every 6 hour while on tPAPerformed By: #### FIB-C, CBC, PP #### [place] [address] USAPlatelet mean volume (Bld) [Entitic vol]7.7 fLNormal 6.6-10.1The [facility] Physician GroupComment on above:Order Comment: Comment Every 6 hour while on tPAPerformed By: #### FIB-C, CBC, PP #### [place] [address] USAPlatelets (Bld) [#/Vol]168 10*3/vUUkwbxx846-871Hof [facility] Physician GroupComment on above:Order Comment: Comment Every 6 hour while on tPAPerformed By: #### FIB-C, CBC, PP #### [place] [address] USARBC (Bld) [#/Vol]4.45 10*6/uLNormal3.90-5.60The [facility] Physician GroupComment on above:Order Comment: Comment Every 6 hour while on tPA Performed By: #### FIB-C, CBC, PP #### [place] [address] USAWBC (Bld) [#/Vol]6.1 10*3/uLNormal4.1-10.5The [facility] Physician GroupComment on above:Order Comment: Comment Every 6 hour while on tPA Performed By: #### FIB-C, CBC, PP #### [place] [address] USABasophils (Bld) [#/Vol]0.0 10*3/uLNormal0.0-0.2The [facility] Physician GroupComment on above:Order Comment: Comment Every 6 hours while on tPAResult Comment: PERFORMED BY: [place] [address] PATHOLOGIST [employer]EN[employer] ROOM SUPERVISOR JOLIE MASON M.D.Performed By: #### CBC, FIB-C, PP #### [place] [address] USABasophils/100 WBC (Bld)0.7 %Normal.The [facility] Physician GroupComment on above:Order Comment: Comment Every 6 hours while on tPA Performed By: #### CBC, FIB-C, PP #### [place] [address] USAEosinophils (Bld) [#/Vol]0.2 10*3/uLNormal0.0-0.45The [facility] Physician GroupComment on above:Order Comment: Comment Every 6 hours while on tPAPerformed By: #### CBC, FIB-C, PP #### [place] [address] USAEosinophils/100 WBC (Bld)3.3 %Normal.The [facility] Physician GroupComment on above:Order Comment: Comment Every 6 hours while on tPAPerformed By: #### CBC, FIB-C, PP #### [place] [address] USAErythrocyte distribution width (RBC) [Ratio]14.1 %Normal 12.0-14.8The [facility] Physician GroupComment on above:Order Comment: Comment Every 6 hours while on tPAPerformed By: #### CBC, FIB-C, PP #### [place] [address] USAHematocrit (Bld) [Volume fraction]45.5 %Khzlze69.8-50.0The [facility] Physician GroupComment on above:Order Comment: Comment Every 6 hours while on tPAPerformed By: #### CBC, FIB-C, PP #### [place] [address] USAHemoglobin (Bld) [Mass/Vol]15.5 g/hWPvillj04.0-17.0The [facility] Physician GroupComment on above:Order Comment: Comment Every 6 hours while on tPAPerformed By: #### CBC, FIB-C, PP #### [place] [address] USALymphocytes (Bld) [#/Vol]1.3 10*3/uLNormal1.00-4.8The [facility] Physician GroupComment on above:Order Comment: Comment Every 6 hours while on tPAPerformed By: #### CBC, FIB-C, PP #### [place] [address] USALymphocytes/100 WBC (Bld)22.0 %Normal.The [facility] Physician GroupComment on above:Order Comment: Comment Every 6 hours while on tPAPerformed By: #### CBC, FIB-C, PP #### [address] (RBC) [Entitic mass]33.9 tzDicvuh09.5-35.2The [facility] Physician GroupComment on above:Order Comment: Comment Every 6 hours while on tPAPerformed By: #### CBC, FIB-C, PP #### [address] (RBC) [Entitic vol]99.4 bEYmbxqq22.5-101The [facility] Physician GroupComment on above:Order Comment: Comment Every 6 hours while on tPAPerformed By: #### CBC, FIB-C, PP #### [place] [address] USAMean Corpuscular HGB Conc34.1 g/mEDztzhm56.5-35.6The [facility] Physician GroupComment on above:Order Comment: Comment Every 6 hours while on tPAPerformed By: #### CBC, FIB-C, PP #### [place] [address] USAMonocytes (Bld) [#/Vol]0.5 10*3/uLNormal0.0-0.8The [facility] Physician GroupComment on above:Order Comment: Comment Every 6 hours while on tPAPerformed By: #### CBC, FIB-C, PP #### [place] [address] USAMonocytes/100 WBC (Bld)8.1 %Normal.The [facility] Physician GroupComment on above:Order Comment: Comment Every 6 hours while on tPA Performed By: #### CBC, FIB-C, PP #### [place] [address] USANeutrophils (Bld) [#/Vol]3.9 10*3/uLNormal1.8-7.7The [facility] Physician GroupComment on above:Order Comment: Comment Every 6 hours while on tPAPerformed By: #### CBC, FIB-C, PP #### [facility] [address] [place] [id number] USANeutrophils/100 WBC (Bld)65.9 %Normal.The [facility] Physician GroupComment on above:Order Comment: Comment Every 6 hours while on tPAPerformed By: #### CBC, FIB-C, PP #### [facility] [address] [place] [address] USANRBC%0.1 /100{WBC}Normal0-0.5[facility] Comment on above:Order Comment: Comment Every 6 hours while on tPAPerformed By: #### CBC, FIB-C, PP #### [facility] [address] [place] [address] USAPlatelet mean volume (Bld) [Entitic vol]8.1 fLNormal 6.6-10.1The [facility] Physician GroupComment on above:Order Comment: Comment Every 6 hours while on tPAPerformed By: #### CBC, FIB-C, PP #### [facility] [address] [place] [address] USAPlatelets (Bld) [#/Vol]179 10*3/mZZpdvwe997-900Zkz [facility] Physician GroupComment on above:Order Comment: Comment Every 6 hours while on tPAPerformed By: #### CBC, FIB-C, PP #### [facility] [address] [place] [address] USARBC (Bld) [#/Vol]4.58 10*6/uLNormal3.90-5.60The [facility] Physician GroupComment on above:Order Comment: Comment Every 6 hours while on tPAPerformed By: #### CBC, FIB-C, PP #### [facility] [address] [place] [id number] USAWBC (Bld) [#/Vol]5.9 10*3/uLNormal4.1-10.5The [facility] Physician GroupComment on above:Order Comment: Comment Every 6 hours while on tPAPerformed By: #### CBC, FIB-C, PP #### [place] [address] USACreatinineon 01-42-1396Xwhdygtbhm [Mass/Vol]0.88 mg/dL Normal0.70-1.30The [facility] Physician GroupComment on above:Performed By: #### CREAT, BUN #### [place] [address] USACreatinine Clr Calc Hatpusuo72.76NormalThe [facility] Physician GroupComment on above:Result Comment: PERFORMED BY: [place] [address] PATHOLOGIST [employer] RIPENING ROOM SUPERVISOR JOLIE MASON M.D.Performed By: #### CREAT, BUN #### [place] [address] USAGFR/1.73 sq M.predicted MDRD (S/P/Bld) [Vol rate/Area] mL/min/{1.73_m2}NormalThe [facility] Physician GroupComment on above:Performed By: #### CREAT, BUN #### [place] [address] USAFibrinogenon 90-49-6558Isetrholqp074 mg/iPVvhrzk499-228Gln [facility] Physician GroupComment on above:Order Comment: Comment Every 6 hours while on tPAResult Comment: --- 09/14/23 225 --- Fib previously reported as: 194 L mg/dL A hematocrit value greater than 55% may lead to inaccurate results in coagulation testing. Patients having hematocrit values >55% require a special collection tube for coagulation studies. Please contact the laboratory at [phone] for redraw instructions. PERFORMED BY: [place] [address] PATHOLOGIST BANANA RIPENING ROOM SUPERVISOR JOLIE MASON M.D.Performed By: #### CBC, FIB-C, PP #### [address] [place] [address] KFPRxdhlzdgwv451 mg/hIBwcpwp093-888Qno [facility] Physician GroupComment on above:Order Comment: Comment Every 6 hours while on tPAResult Comment: A hematocrit value greater than 55% may lead to inaccurate results in coagulation testing. Patients having hematocrit values >55% require a special collection tube for coagulation studies. Please contact the laboratory at [phone] for redraw instructions. PERFORMED BY: [place] [address] PATHOLOGIST BANANA RIPENING ROOM SUPERVISOR JOLIE MASON M.D.Performed By: #### CBC, FIB-C, PP #### [place] [address] QZDQlfutoimfv794 mg/kWFmbzvo155-822Cev [facility] Physician GroupComment on above:Order Comment: Comment Every 6 hours while on tPAResult Comment: A hematocrit value greater than 55% may lead to inaccurate results in coagulation testing. Patients having hematocrit values >55% require a special collection tube for coagulation studies. Please contact the laboratory at [phone] for redraw instructions. PERFORMED BY: [place] [address] PATHOLOGIST BANANA RIPENING ROOM SUPERVISOR JOLIE MASON M.D.Performed By: #### CBC, FIB-C, PP #### [place] [address] USAType and Screenon 82-06-8428HGY and Rh group Nom (Bld) Blood group O Rh(D) positiveNoSentara Albemarle Medical Center Physician [facility] HospitalComment on above: Result Comment: PERFORMED BY: [place] [address] PATHOLOGIST BANANA RIPENING ROOM SUPERVISOR JOLIE MASON M.D.US ankle/arm indiceson 81-98-0317SD ankle/arm indicesASHTABULA COUNTY MEDICAL [facility] Main [place] [address] [place] [address] Ultrasound Report Signed Patient: Pawan Bustillo MR#: [id number] 3 : 1955 Acct:[id number] Age/Sex: 67 / M ADM Date: 09/12/23 Loc: [facility] Room: Type: [facility] Attending Dr: Tom Schroeder MD Ordering Provider: [...] Tom Schroeder M.D.09/12/2023 12:20 PM Dictation Location: [place] [address] Tech: Nikole Avitia Transcribed By: NOÉ 09/12/23 1220 Dictated By: Tom Schroeder MD 09/12/23 1218 Signed By: 09/12/23 1220[facility] Physician GroupCreatinine [Mass/volume] in Serum or PlasmaOrdered By: Tom Schroeder on 89-57-0285Ilcahzqbab [Mass/Vol] 0.89 mg/dL0.70-1.30[facility] HospitalNo Panel InformationOrdered By: Tom Schroeder on 42-91-6239Dxjycqygk GFR (CKD-EPI)> 60.0 mL/MinDayton Children'S HospitalPharmacy Creatinine Clearance (Chem88.40[facility]'S HospitalUrea nitrogen [Mass/volume] in Serum or PlasmaOrdered By: Tom Schroeder on 04-68-2384Zyte nitrogen [Mass/Vol]17 mg/dL7-25[facility]'S HospitalCreatinine (Bld) [Mass/Vol]Ordered By: Madie Honeycutt on 04-65-0797Ukzxbikpxv [Mass/Vol]1.0 mg/dL0.6-1.3FKettering Health Miamisburg Comment on above:ER/ESD physician is notified/shown all ISTAT results.Critical values may be confirmed by laboratorytesting ifdeemed necessary by ER attending doctor.No Panel InformationOrdered By: Madie Lopezsergo on 01-54-9734Ngpjqff Estimated GFR (eGFR)> 60.0[facility]'S HospitalCBC AUTO DIFFon 39-29-3372PJSS #0.0 103/ulNormal0.0-0.1The [facility] HospitalComment on above: Performed By: #### CBC #### [facility] [address] [place] [address] [address] Kathy ChangBasophils/100 WBC (Bld)0.2 %Normal0.2-2.0[facility] Comment on above:Performed By: #### CBC #### [facility] [address] [place] [address] [address] Kathy Rodriguez #0.0 103/ulNormal0.0-0.7The [facility] HospitalComment on above: Performed By: #### CBC #### [facility] [address] [place] [address] [address] Kathy Hollandosinophils/100 WBC (Bld)0.1 %Critically low0.9-7.0The [facility] HospitalComment on above:Performed By: #### CBC #### [facility] [address] [place] [address] [address] Kathy Hollandrythrocyte distribution width (RBC) [Ratio]12.9 %Cqnohf69.0-15.0 The [facility] HospitalComment on above:Performed By: #### CBC #### [facility] [address] [place] [address] [address] Kathy ChangHematocrit (Bld) [Volume fraction]47.6 %Doytir95.0-54.0The [facility] HospitalComment on above:Performed By: #### CBC #### [facility] [address] [place] [address] [address] Kathy ChangHemoglobin (Bld) [Mass/Vol]16.1 g/hFUkwkgr97.0-18.0The [facility] HospitalComment on above:Performed By: #### CBC #### [facility] [address] [place] [address] Dr. Kathy Coleman #0.07 10e3/ulCritically high0.00-0.03[facility] Comment on above:Performed By: #### CBC #### [facility] [address] [place] [address] Dr. Kathy Coleman %0.4 %Normal0.0-0.5The [facility] HospitalComment on above: Performed By: #### CBC #### [facility] [address] [place] [address] Dr. Kathy Jain #1.0 103/ulCritically low1.2-3.8[facility] Comment on above:Performed By: #### CBC #### [facility] [address] [place] [address] Dr. Kathy Herrerahocytes/100 WBC (Bld)6.0 %Critically low20.5-60.0The [facility] HospitalComment on above:Performed By: #### CBC #### [facility] [address] [place] [address] Dr. Kathy CanadaUAL DIFF REQNONormalThe [facility]mount HospitalComment on above: Performed By: #### CBC #### [facility] [address] [place] [address] Dr. Kathy Aguilar (RBC) [Entitic mass]32.8 aiFitrkg98.9-34.0The [facility] HospitalComment on above:Performed By: #### CBC #### [facility] [address] [place] [address] Dr. Kathy Aguilar (RBC) [Mass/Vol]33.8 g/mRInzptg35.9-35.2The [facility] HospitalComment on above:Performed By: #### CBC #### [facility] [address] [place] [address] Dr. Kathy Jansen (RBC) [Entitic vol]96.9 fLCritically high80.0-94.0The [facility] HospitalComment on above:Performed By: #### CBC #### [facility] [address] [place] [address] Dr. Kathy Oreilly #0.8 103/ulNormal0.3-0.8The [facility] HospitalComment on above:Performed By: #### CBC #### [facility] [address] [place] [address] Dr. Kathy Parkerocytes/100 WBC (Bld)5.1 %Normal1.7-12.0[facility] Comment on above:Performed By: #### CBC #### [facility] [address] [place] [address] Dr. Kathy Kennedy #13.9 103/ulCritically high1.4-6.5[facility] Comment on above:Performed By: #### CBC #### [facility] [address] [place] [address] Dr. Kathy Jean Baptisteutrophils/100 WBC (Bld)88.2 %Critically high43.0-75.0The [facility] HospitalComment on above:Performed By: #### CBC #### [facility] [address] [place] [address] Dr. Kathy Del Angellet mean volume (Bld) [Entitic vol]9.2 fLCritically low 9.5-13.5The [facility] HospitalComment on above:Performed By: #### CBC #### [facility] [address] [place] [address] Dr. Kathy KingT190 103/nbMibsaq942-496Kyw [facility] HospitalComment on above: Performed By: #### CBC #### [facility] [address] [place] [address] Dr. Kathy ChangRBC4.91 106/ulNormal4.70-6.10The [facility] HospitalComment on above:Performed By: #### CBC #### [facility] [address] [place] [address] Dr. Kathy ChangWBC15.8 103/ulCritically high4.0-11.0The [facility] HospitalComment on above:Performed By: #### CBC #### [facility] [address] [place] [address] Dr. Kathy ChangPROF CHEM 8 (BAS METB)on 04-78-2361Jprnt gap [Moles/Vol]13.4 mmol/LNormalThe [facility] HospitalComment on above:Performed By: #### BMP #### [facility] [address] [place] [address] Dr. Kathy ChangCalcium [Mass/Vol]9.2 mg/dLNormal8.5-10.1[facility] Comment on above:Performed By: #### BMP #### [facility] [address] [place] [address] Dr. Kathy ChangChloride [Moles/Vol]100 mmol/FBucwyl07-048Wwu [facility] Comment on above:Performed By: #### BMP #### [facility] [address] [place] [address] Dr. Kathy ChangCO2 [Moles/Vol]30.3 mmol/DGzlukv72.0-32.0[facility] Comment on above:Performed By: #### BMP #### [facility] [address] [place] [address] Dr. Kathy ChangCreatinine [Mass/Vol]1.01 mg/dLNormal0.70-1.30The [facility] HospitalComment on above:Performed By: #### BMP #### [facility] [address] [place] [address] Dr. Kathy HollandGFR-AF JORDANIAN>60Normal>=60The [facility] HospitalComment on above:Performed By: #### BMP #### [facility] [address] [place] [address] Dr. Kathy HollandGFR-NON AF JORDANIAN>60Normal>=60The [facility] HospitalComment on above:Performed By: #### BMP #### [facility] [address] [place] [address] Dr. Kathy ChangGlucose [Mass/Vol]109 mg/dLCritically gqdl49-564Eyv [facility] HospitalComment on above:Performed By: #### BMP #### [facility] [address] [place] [address] Dr. Kathy ChangPotassium [Moles/Vol]4.7 mmol/LNormal3.5-5.1[facility] Comment on above:Performed By: #### BMP #### [facility] [address] [place] [address] Dr. Kathy Burtdium [Moles/Vol]139 mmol/YXjxziz024-057RrtSelect Medical Specialty Hospital [facility] [place] Comment on above:Performed By: #### BMP #### [facility] [address] [place] [address] Dr. Kathy ChangUrea nitrogen [Mass/Vol]19.0 mg/dLCritically high7.0-18.0The [facility] HospitalComment on above:Performed By: #### BMP #### [facility] [address] [place] [address] Dr. Kathy White nitrogen/Creatinine [Mass ratio]18.8 mg/mgNormalThe Marymount HospitalComment on above:Performed By: #### BMP #### [facility] [address] [place] [address] Dr. Kathy Kaur AUTO DIFFon 96-60-5213HBCH #0.0 103/ulNormal0.0-0.1The [facility] HospitalComment on above:Performed By: #### CBC #### [facility] [address] [place] [address] Dr. Kathy ChangBajuliophils/100 WBC (Bld)0.5 %Normal0.2-2.0[facility] Comment on above:Performed By: #### CBC #### [facility] [address] [place] [address] Dr. Kathy Rodriguez #0.2 103/ulNormal0.0-0.7The [facility] HospitalComment on above: Performed By: #### CBC #### [facility] [address] [place] [address] Dr. Kathy Hollandosinophils/100 WBC (Bld)2.6 %Normal0.9-7.0[facility] Comment on above:Performed By: #### CBC #### [facility] [address] [place] [address] Dr. Kathy Hollandrythrocyte distribution width (RBC) [Ratio]12.6 %Btimfg88.0-15.0 The [facility] HospitalComment on above:Performed By: #### CBC #### [facility] [address] [place] [address] Dr. Kathy ChangHematocrit (Bld) [Volume fraction]50.6 %Somzit93.0-54.0The [facility] HospitalComment on above:Performed By: #### CBC #### [facility] [address] [place] [address] Dr. Kathy ChangHemoglobin (Bld) [Mass/Vol]17.3 g/gMEkgcao44.0-18.0The [facility] HospitalComment on above:Performed By: #### CBC #### [facility] [address] [place] [address] Dr. Kathy Coleman #0.08 10e3/ulCritically high0.00-0.03[facility] Comment on above:Performed By: #### CBC #### [facility] [address] [place] [address] Dr. Kathy Coleman %0.9 %Critically high0.0-0.5The [facility] HospitalComment on above:Performed By: #### CBC #### [facility] [address] [place] [address] Dr. Kathy HerreraH #1.8 103/ulNormal1.2-3.8The [facility] HospitalComment on above:Performed By: #### CBC #### [facility] [address] [place] [address] Dr. Kathy Croninmphocytes/100 WBC (Bld)20.9 %Wztrjs59.5-60.0The [facility] HospitalComment on above:Performed By: #### CBC #### [facility] [address] [place] [address] Dr. Kathy Borja DIFF REQNONormalThe [facility] HospitalComment on above: Performed By: #### CBC #### [facility] [address] [place] [address] Dr. Kathy Aguilar (RBC) [Entitic mass]33.1 ffObnfsz11.9-34.0The [facility] HospitalComment on above:Performed By: #### CBC #### [facility] [address] [place] [address] Dr. Kathy Aguilar (RBC) [Mass/Vol]34.2 g/wUFgripk82.9-35.2The [facility] HospitalComment on above:Performed By: #### CBC #### [facility] [address] [place] [address] Dr. Kathy Aguilar (RBC) [Entitic vol]96.9 fLCritically high80.0-94.0The [facility] HospitalComment on above:Performed By: #### CBC #### [facility] [address] [place] [address] Dr. Kathy Oreilly #0.6 103/ulNormal0.3-0.8The [facility] HospitalComment on above:Performed By: #### CBC #### [facility] [address] [place] [address] Dr. Kathy Parkerocytes/100 WBC (Bld)6.7 %Normal1.7-12.0[facility] Comment on above:Performed By: #### CBC #### [facility] [address] [place] [address] Dr. Kathy Kennedy #6.0 103/ulNormal1.4-6.5The [facility] HospitalComment on above:Performed By: #### CBC #### [facility] [address] [place] [address] Dr. Kathy Jean Baptisteutrophils/100 WBC (Bld)68.4 %Byloyk20.0-75.0The [facility] HospitalComment on above:Performed By: #### CBC #### [facility] [address] [place] [address] Dr. Kathy ChangPlatelet mean volume (Bld) [Entitic vol]9.0 fLCritically low 9.5-13.5The [facility] HospitalComment on above:Performed By: #### CBC #### [facility] [address] [place] [address] Dr. Kathy ChangPLT200 103/mcRxwpyg130-812Cnv [facility] HospitalComment on above: Performed By: #### CBC #### [facility] [address] [place] [address] Dr. Kathy ChangRBC5.22 106/ulNormal4.70-6.10The [facility] HospitalComment on above:Performed By: #### CBC #### [facility] [address] [place] [address] Dr. Kathy ChangWBC8.7 103/ulNormal4.0-11.0The [facility] HospitalComment on above: Performed By: #### CBC #### [facility] [address] [place] [address] Dr. Kathy BruceID PROFILEon 77-26-7720CJQE-HDL RATIO NORMSEE [facility] HospitalComment on above:Result Comment: 3.3 - 4.4 LOW RISK 4.4 - 7.1 AVERAGE RISK 7.1 - 11.0 MODERATE RISK >11.0 HIGH RISKPerformed By: #### CMP, LIPID #### [facility] [address] [place] [address] Dr. Kathy ChangCholesterol [Mass/Vol]145 mg/dLNormal<=200[facility] Comment on above:Performed By: #### CMP, LIPID #### [facility] [address] [place] [address] Dr. Kathy ChangCholesterol in HDL [Mass/Vol]50 mg/zIDxkgra67-90Zlj [facility] HospitalComment on above:Performed By: #### CMP, LIPID #### [facility] [address] [place] [address] Dr. Kathy ChangCholesterol in LDL [Mass/Vol]83.8 mg/dLSt. Mary's Medical Center, Ironton CampusComment on above:Performed By: #### CMP, LIPID #### [facility] [address] [place] [address] Dr. Kathy Mathis.total/Cholesterol in HDL [Mass ratio]2.9 {ratio} NormalThe [facility]mount HospitalComment on above:Performed By: #### CMP, LIPID #### [facility] [address] [place] [address] Dr. Kathy Forrester NORMAL> or = 60 mg/dl - LOW CARDIOVASCULAR RISK <40 mg/dl - HIGH CARDIOVASCULAR RISKNoGeorgetown Behavioral HospitalComment on above:Performed By: #### CMP, LIPID #### [facility] [address] [place] [address] Dr. Kathy Rudd CALC NORMALSEE BELOWNoGeorgetown Behavioral HospitalComment on above:Result Comment: <100 mg/dl OPTIMAL 100 - 129 mg/dl NEAR OR ABOVE OPTIMAL 130 - 159 mg/dl BORDERLINE HIGH 160 - 189 mg/dl HIGH >190 mg/dl VERY HIGH Performed By: #### CMP, LIPID #### [facility] [address] [place] [address] Dr. Kathy ChangTriglyceride [Mass/Vol]56 mg/dLNormal<=150[facility] Comment on above:Performed By: #### CMP, LIPID #### [facility] [address] [place] [address] Dr. Kathy ChangVLDL CALC11.2 mg/dLNoGeorgetown Behavioral HospitalComment on above: Performed By: #### CMP, LIPID #### [facility] [address] [place] [address] Dr. Kathy ChangPROF 14(COMP METB)on 70-09-0298Lnmhndu [Mass/Vol]4.2 g/dLNormal 3.4-5.0The [facility] HospitalComment on above:Performed By: #### CMP, LIPID #### [facility] [address] [address] [address] Kathy ChangAlbumin/Globulin [Mass ratio]1.4 {ratio}NormalThe [facility] HospitalComment on above:Performed By: #### CMP, LIPID #### [facility] [address] [address] [address] Kathy Rincon [Catalytic activity/Vol]88 U/NWyzchh12-948Wfy [facility] HospitalComment on above:Performed By: #### CMP, LIPID #### [facility] [address] [address] [address] Kathy Hussein [Catalytic activity/Vol]26 U/EXrniqy60-37Exy [facility] HospitalComment on above:Performed By: #### CMP, LIPID #### [facility] [address] [address] [address] Kathy Baumannon gap [Moles/Vol]8.8 mmol/LNormalThe [facility] HospitalComment on above:Performed By: #### CMP, LIPID #### [facility] [address] [address] [address] Kathy Garrett [Catalytic activity/Vol]17 U/RBdzwlm57-73[facility] on above:Performed By: #### CMP, LIPID #### [facility] [address] [address] [address] Kathy ChangBilirubin [Mass/Vol]0.7 mg/dLNormal0.2-1.0[facility] Comment on above:Performed By: #### CMP, LIPID #### [facility] [address] [address] [address] Kathy ChangCalcium [Mass/Vol]9.8 mg/dLNormal8.5-10.1[facility] Comment on above:Performed By: #### CMP, LIPID #### [facility] [address] [address] [address] Kathy ChangChloride [Moles/Vol]103 mmol/MSmdvon15-368Ncb [facility] Comment on above:Performed By: #### CMP, LIPID #### [facility] [address] [address] [address] Kathy ChangCO2 [Moles/Vol]32.3 mmol/LCritically high21.0-32.0The [facility] HospitalComment on above:Performed By: #### CMP, LIPID #### [facility] [address] [place] [address] Dr. Kathy ChangCreatinine [Mass/Vol]0.97 mg/dLNormal0.70-1.30The [facility] HospitalComment on above:Performed By: #### CMP, LIPID #### [facility] [address] [place] [address] Dr. Kathy HollandGFR-AF JORDANIAN>60Normal>=60The [facility] HospitalComment on above:Performed By: #### CMP, LIPID #### [facility] [address] [place] [address] Dr. Kathy HollandGFR-NON AF JORDANIAN>60Normal>=60The [facility] HospitalComment on above:Performed By: #### CMP, LIPID #### [facility] [address] [place] [address] Dr. Kathy ChangGlobulin (S) [Mass/Vol]3.1 g/dLNormalThe [facility] HospitalComment on above:Performed By: #### CMP, LIPID #### [facility] [address] [place] [address] Dr. Kathy ChangGlucose [Mass/Vol]111 mg/dLCritically xgdr28-559Lkk [facility] HospitalComment on above:Performed By: #### CMP, LIPID #### [facility] [address] [place] [address] Dr. Kathy ChangPotassium [Moles/Vol]5.1 mmol/LNormal3.5-5.1[facility] Comment on above:Performed By: #### CMP, LIPID #### [facility] [address] [place] [address] Dr. Kathy ChangProtein [Mass/Vol]7.3 g/dLNormal6.4-8.2[facility] Comment on above:Performed By: #### CMP, LIPID #### [facility] [address] [address] [address] Kathy ChangSodium [Moles/Vol]139 mmol/WZppaay309-541Srr [facility] Comment on above:Performed By: #### CMP, LIPID #### [facility] [address] [address] [address] Kathy White nitrogen [Mass/Vol]20.0 mg/dLCritically high7.0-18.0The [facility] HospitalComment on above:Performed By: #### CMP, LIPID #### [facility] [address] [address] [address] Kathy White nitrogen/Creatinine [Mass ratio]20.6 mg/mgNormalThe [facility] HospitalComment on above:Performed By: #### CMP, LIPID #### [facility] [address] [address] [address] Kathy ChangCT CHEST WO CONon [id number] CHEST WO CONEXAMINATION: CT CHEST WO CON [...] Electronically authenticated by: MUNIR GARCIA Date: 2022-06-16 15:46NoGeorgetown Behavioral HospitalCT CHEST WO CONon [id number] CHEST WO CONEXAMINATION: CT CHEST WO CON [...] Electronically authenticated by: MUNIR GARCIA Date: 2021-12-14 11:09[facility] CampusCardiovascular Lab Reporton [id number] Lab Report [facility] Patient Name: Pawan Bustillo [facility] MR #: [id number] Physician: Chavo Santana, Department of M.D. Medicine Service Date: 06/05/2019 Division of Birthdate: 1955 Cardiology Room #: [facility] [address] [place] [address] Cardiovascular Laboratory Report IMPRESSIONS: 1. Patent stent in the mid left anterior descending coronary artery. 2. 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 METHODS: After risks, benefits, and alternatives were explained, written informed consent was obtained. The patient was prepped and draped in usual sterile fashion over the right groin. Using 1% lidocaine solution, local infiltration anesthesia was achieved. Using a modified Seldinger technique, micropuncture kit, access of the right common femoral artery was obtained. A 6-Malaysian 11 cm sheath was inserted without difficulty. Baseline femoral angiography was performed. Bilateral selective coronary angiography was performed using JL4 and JR4 catheters. After reviewing the images, it was elected to conclude the procedure. A 6-Malaysian MynxGrip closure device was inserted however deployment [...] Santana M.D. Date Trans: 06/06/2019 03:46 A/natalee DN_[id number] cc: Sancho Leroy M.D. [address] [place] [address] Vital Signs Date TimeVital SignValuePerforming GzurobxioDovpynsu74-58-7239 13:14-0400Body .34 cmKeaton Rico MD Work Phone: [phone])871-68[facility]10-14-2025 13:14-0400 Body mass index (BMI) [Ratio]27.4 kg/j7SzobrwKeaton Rico MD Work Phone: [phone]10-14-2025 13:14-0400 Body aehrwrsycbd89.3 [degF]Keaton Rico MD Work Phone: 1(397)769-61[facility]10-14-2025 13:14-0400 Body .35 kgKeaton Rico MD Work Phone: 1(136)474-34[facility]10-14-2025 13:14-0400 Diastolic blood mm[Hg]Keaton Rico MD Work Phone: [facility]10-14-2025 13:14-0400 Heart dblv666 /minKeaton Rico MD Work Phone: 1(688)[address]10-14-2025 13:14-0400 SaO2% (BldA) [Mass fraction]86 %Keaton Rico MD Work Phone: [phone])[address] [place], [place] 6135610-14-2025 13:14-0400 Systolic blood ekhouzrq668 mm[Hg]Keaton Rico MD Work Phone: 1(419)[address] [place], [place] 6135608-25-2025 12:15-0400 Body sjifmo678.34 cmKeaton Rico MD Work Phone: 1(419)[address] [place], [place] 6135608-25-2025 12:15-0400 Body mass index (BMI) [Ratio]27.5 kg/i0DwuvdlKeaton Rico MD Work Phone: 1(673)[address] [place], [place] 6135608-25-2025 12:15-0400 Body uwpvyaiulfi00.3 [degF]Keaton Rico MD Work Phone: 1(902)[address] [place], [place] 6135608-25-2025 12:15-0400 Body erkmqw23.58 kgKeaton Rico MD Work Phone: [phone])[address] [place], [place] 6135608-25-2025 12:15-0400 Diastolic blood elhzaefr98 mm[Hg]Keaton Rico MD Work Phone: 1(924)[address] [place], [place] 6135608-25-2025 12:15-0400 Heart rate70 /Lenore Rico MD Work Phone: 1(140)[address] [place], [place] 6135608-25-2025 12:15-0400 Respiratory rate19 /Lenore Rico MD Work Phone: 1(419)[address] [place], [place] 6135608-25-2025 12:15-0400 SaO2% (BldA) [Mass fraction]98 %Keaton Rico MD Work Phone: 1(419)[address] [place], [place] 6135608-25-2025 12:15-0400 Systolic blood isdcbief060 mm[Hg]Keaton Rico MD Work Phone: 1(419)[address] [place], [place] 6135602-04-2025 13:29-0500 Body rxtimqlxvfv67.1 [degF]Keaton Rico MD Work Phone: [phone])[address]02-04-2025 13:29-0500 Diastolic blood njmcojoo95 mm[Hg]Keaton Rico MD Work Phone: 1(188)[address] [place], [place] 6135602-04-2025 13:29-0500 Heart rate90 /Lenore Rico MD Work Phone: 1(568)[address] [place], [place] 6135602-04-2025 13:29-0500 SaO2% (BldA) [Mass fraction]90 %Keaton Rico MD Work Phone: 1(705)[address] [place], [place] 6135602-04-2025 13:29-0500 Systolic blood dnlfyvxq832 mm[Hg]Keaton Rico MD Work Phone: 1(999)[address] [place], [place] 6135612-30-2024 14:38-0500 Body .34 cmKeaton Rico MD Work Phone: 1(971)[address] [place], [place] 6135612-30-2024 14:38-0500 Body mass index (BMI) [Ratio]28.1 kg/r7JvnccvKeaton Rico MD Work Phone: 1(100)[address] [place], [place] 6135612-30-2024 14:38-0500 Body xqjepjistts475.2 [degF]Keaton Rico MD Work Phone: 1(307)[address] [place], [place] 6135612-30-2024 14:38-0500 Body .62 kgKeaton Rico MD Work Phone: 1(349)[address] [place], [place] 6135612-30-2024 14:38-0500 Diastolic blood qyfblwby52 mm[Hg]Keaton Rico MD Work Phone: 1(851)[address] [place], [place] 6135612-30-2024 14:38-0500 Heart rskn138 /Lenore Rico MD Work Phone: 1(904)[address] [place], [place] 6135612-30-2024 14:38-0500 SaO2% (BldA) [Mass fraction]89 %Keaton Rico MD Work Phone: 1(738)92202 [address]12-30-2024 14:38-0500 Systolic blood hbcaauwj547 mm[Hg]Keaton Rico MD Work Phone: 1(768)86[address]06-18-2024 12:51-0400 Body .34 cmMD Keaton Rico Work Phone: 1(499)[address]06-18-2024 12:51-0400 Body mass index (BMI) [Ratio]25.8 kg/m2MD Keaton Rico Work Phone: [phone])[address]06-18-2024 12:51-0400 Body opfpstfhfxy48.8 [degF]MD Keaton Rico Work Phone: 1(882)[address]06-18-2024 12:51-0400 Body weprpb00 kgMD Keaton Rico Work Phone: 1(139)63802 [address]06-18-2024 12:51-0400 Diastolic blood mm[Hg]MD Keaton Rico Work Phone: 1(181)[address]06-18-2024 12:51-0400 Heart rate66 /minMD Keaton Rico Work Phone: 1(965)[address]02 [address]06-18-2024 12:51-0400 Respiratory rate16 /minMD Keaton Rico Work Phone: 1(138)[address]06-18-2024 12:51-0400 SaO2% (BldA) [Mass fraction]98 %MD Keaton Rico Work Phone: [phone](421)52102 [address]06-18-2024 12:51-0400 Systolic blood wcvcxkza825 mm[Hg]MD Keaton Rico Work Phone: 1(694)15[address]02-17-2024 08:00-0500 Body lpwuxjxrcxi89.9 [degF]MD Keaton Rico Work Phone: 1(767)07502 [address]02-17-2024 08:00-0500 Diastolic blood usdlrdlv82 mm[Hg]MD Keaton Rico Work Phone: 1(126)72402 [address]02-17-2024 08:00-0500 Heart rate94 /minMD Keaton Rico Work Phone: [facility]02-17-2024 08:00-0500 Respiratory rate20 /minMD Keaton Rico Work Phone: 1([phone])640-16[facility]02-17-2024 08:00-0500 SaO2% (BldA) [Mass fraction]88 %MD Keaton Rico Work Phone: [phone])583-49[facility]02-17-2024 08:00-0500 Systolic blood ezyhlmwn071 mm[Hg]MD Keaton Rico Work Phone: 1([phone])894-91[facility]02-17-2024 07:26-0500 Inhaled oxygen flow rate1 L/minMD Keaton Rico Work Phone: 1(030)070-[address] [place], [place] 1421802-17-2024 06:00-0500 Body issbts96.5 kgMD Keaton Rico Work Phone: 1(954)412-[address] [place], [place] 1421802-15-2024 15:35-0500 Body vgqagg644.34 cmMD Keaton Rico Work Phone: [phone]02-12-2024 12:00-0500 Body bjmsic770.8 cmTom Schroeder Other [facility] [employer] Other 02-12-2024 12:00-0500Body mass index (BMI) [Ratio] 27.12 kg/f4SpcuzziTom Schroeder Other [employer] Other 02-12-2024 12:00-0500Body awplqrtmenl11.3 [degF] Tom [facility]roeder Other [facility] Other 02-12-2024 12:00-0500Body oceiqp90.73 kgTom Schroeder Other [facility] Other 02-12-2024 12:00-0500Diastolic blood sevxbpna32 mm[Hg] Tom Schroeder Other [facility] [employer] Other 02-12-2024 12:00-3661IvK2% (BldA) [Mass fraction]92 % Tom Schroeder Other [facility] [employer] Other 02-12-2024 12:00-0500Systolic blood mm[Hg] Tom Hammresuzie Other [facility] Other 10-18-2023 18:15-0400Diastolic blood duatqvba45 mm[Hg] MD Keaton Rico Work Phone: [phone]10-18-2023 18:15-0400 Heart rate70 /minMD Keaton Rico Work Phone: [phone]10-18-2023 18:15-0400 Respiratory rate16 /minMD Keaton Rico Work Phone: 1(154)023-[address] [place], [place] 1421810-18-2023 18:15-0400 SaO2% (BldA) [Mass fraction]91 %MD Keaton Rico Work Phone: [phone]10-18-2023 18:15-0400 Systolic blood wcuaxtpg238 mm[Hg]MD Keaton Rico Work Phone: [phone]10-18-2023 12:27-0400 Inhaled oxygen flow rate3 L/minMD Keaton Rico Work Phone: 1(121)785-[address] [place], [place] 1421810-18-2023 08:04-0400 Body oxoezw044.88 cmMD Keaton Rico Work Phone: [phone])707-80[facility]10-18-2023 08:04-0400 Body ufyrhy86.18 kgMD Keaton Rico Work Phone: [phone]10-16-2023 10:15-0400 Body mihrpo016.8 cmWilliamhemalatha Hammrer Other [employer] Other 10-16-2023 10:15-0400Body mass index (BMI) [Ratio] 27.12 kg/z6LzwdfhrTom Hammrer Other [employer] Other 10-16-2023 10:15-0400Body ywzwkqoywdp08.8 [degF] Tom Elda Other [employer] Other 10-16-2023 10:15-0400Body .73 kgTom Hammrer Other [employer] Other 10-16-2023 10:15-0400Diastolic blood zinaaqao40 mm[Hg] Tom Schroeder Other [employer] Other 10-16-2023 10:15-4174EpA2% (BldA) [Mass fraction]96 % Tom Elda Other [employer] Other 10-16-2023 10:15-0400Systolic blood lxmekehg583 mm[Hg] Tom Schroeder Other [employer] Other 09-26-2023 11:45-0400Body wdmxeh314.8 cmMadie Honeycutt Other [employer] Other 09-26-2023 11:45-0400Body mass index (BMI) [Ratio] 27.12 kg/l2DyighxMadie Honeycutt Other [employer] Other 09-26-2023 11:45-0400Body iddypijbcjo99 [degF]Madie Honeycutt Other [employer] Other 09-26-2023 11:45-0400Body zliqyx04.73 kgMadie Honeycutt Other [employer] Other 09-26-2023 11:45-0400Diastolic blood cwtnxmeq00 mm[Hg] Madie Honeycutt Other [employer] Other 09-26-2023 11:45-5382RxV3% (BldA) [Mass fraction]97 % Madie Honeycutt Other [employer] Other 09-26-2023 11:45-0400Systolic blood brzdfyzi378 mm[Hg] Madie Honeycutt Other [employer] Other 05-25-2023 15:30-0400Body .8 cmKeaton Rico Other [employer] Other 05-25-2023 15:30-0400Body mass index (BMI) [Ratio] 27.12 kg/y6LsahhzKeaton Rico Other [employer] Other 05-25-2023 15:30-0400Body fbvngjypept706 [degF]Keaton Rico Other [employer] Other 05-25-2023 15:30-0400Body .73 kgKeaton Rico Other [employer] Other 05-25-2023 15:30-0400Diastolic blood hzjeyvyf94 mm[Hg] Keaton Rico Other [employer] Other 05-25-2023 15:30-3914FuM4% (BldA) [Mass fraction]97 % Keaton Rico Other [employer] Other 05-25-2023 15:30-0400Systolic blood oulqkavh331 mm[Hg] Keaton Rico Other [employer] Other 04-11-2023 11:15-0400Body ehqprf594.8 cmKeaton Rico Other [employer] Other 04-11-2023 11:15-0400Body mass index (BMI) [Ratio] 26.54 kg/m0PntyxiKeaton Rico Other [employer] Other 04-11-2023 11:15-0400Body ilrzau08.92 kgKeaton Rico Other [employer] Other 04-11-2023 11:15-0400Diastolic blood dupkeabm87 mm[Hg] Keaton Rico Other [employer] Other 04-11-2023 11:15-6049RpJ9% (BldA) [Mass fraction]97 % Keaton Rico Other [employer] Other 04-11-2023 11:15-0400Systolic blood aimrccsm175 mm[Hg] Keaton Rico Other [employer] Other 09-19-2022 09:56-0400Respiratory rate16 /minPatrick Banno [facility]10-11-2021 10:00-0400Body yldsub009.34 cmTom Schroeder Other [employer] Other 10-11-2021 10:00-0400Body mass index (BMI) [Ratio]25.8 kg/v9Xhngmlc Buehrios Other [employer] Other 10-11-2021 10:00-0400Body .9 [degF] Tom Schroeder Other [employer] Other 10-11-2021 10:00-0400Body bawoqk22.92 kgTom Neffsuzie Other [employer] Other 10-11-2021 10:00-0400Diastolic blood yjfffdyh94 mm[Hg] Tom Schroeder Other [facility] Other 10-11-2021 10:00-9681OmA0% (BldA) [Mass fraction]96 % Tom Schroeder Other [employer] Other 10-11-2021 10:00-0400Systolic blood rjobiygy921 mm[Hg] Tom Schroeder Other [employer] Other Encounters Encounter DateEncounter TypeCare ProviderFacilityStart: 40-35-4133vdsoypddqc Lorin X OrzechFacility:EU [place]vueStart: 05-14-2025 End: 40-11-1961jafggrliwoBmncgp E Braun MD Work Phone: [facility] Work Phone: Start: 05-14-2025 End: 11-31-9649Xmlsloc encounter procedureKeaton Rico MD-[facility] Work Phone: Start: 04-04-2025 End: 56-97-4425wstwvutcyxRpfvcc X OrzechFacility:EU [place]Start: 04-04-2025 End: 24-42-8202Toqfndk encounter procedureAurora X Orzech [facility] start: 03-25-2025 End: 56-80-1378zdvsikpwtvDikjyp E Braun MD Work Phone: [facility] Work Phone: Start: 03-25-2025 End: 79-61-1432Opkgeca encounter procedureTosha Jeff [facility] Work Phone: Start: 03-11-2025 End: 01-32-2083gpasvfziclCBVIQD [facility] Start: 09-18-2024 End: 57-19-8811wckpqaqqyrYSSVUVS [facility] Start: 09-04-2024 End: 93-87-9621Pqtpzew encounter procedureKeaton Rico MD Work Phone: [facility] Phys[facility] Work Phone: Start: 09-04-2024 End: 98-70-5438qgcxlebcrkTiawdt E Braun MD Work Phone: [facility] Work Phone: Start: 07-30-2024 End: 18-45-2874Rrvcfhd encounter procedureKeaton Rico MD Work Phone: [facility] Work Phone: Start: 14-77-6562Ubrgctx encounter Juanis Rico MD Work Phone: [facility]: 01-17-2024 End: 31-75-2311oxuosznqlaUH Marcia E Braun Work Phone: [facility] Work Phone: Start: 01-17-2024 End: 67-09-0473Zvzffah encounter procedureMD Keaton Rico Work Phone: [facility] V[facility] Work Phone: Start: 10-20-2023 End: 38-19-7220Uwannvm encounter procedureMD Keaton Rico Work Phone: [facility] Work Phone: Start: 02-71-8856Gql-patient / Non-visitMD Yee Rico Work Phone: [facility] Pulmonary Disease Work Phone: Start: 18-06-0252Gjk-patient / Non-visitMD Keaton Rico Work Phone: [facility] Work Phone: Start: 09-14-2023 End: 02-53-5977Mtiuvzhyyc and management of inpatientMD Keaton Rico Work Phone: [facility] Work Phone: Start: 60-04-8856Rxberw outpatient visit 25 minutes Tom Galeano Vascular SurgeryStart: 09-12-2023 End: 92-87-1354Athrhpi encounter procedure Keaton Rico Work Phone: [facility] [facility]-Ultrasound [facility] VascularStart: 09-12-2023 End: 50-74-2211hlioobzxaoSC Keaton Hernandes Rico Work Phone: [employer] Other Start: 06-13-2023 End: 99-59-2402fqryjpnnqvVvsnce Jacky Other [employer] Other Start: 66-17-8866Uvkbgjbrk encounterMarcia BraunFPG [facility] Hospitaltart: 05-18-2023 End: 87-06-4166Pbpyfcmkb to same day surgery centerMD Keaton Rico Work Phone: [facility]-Interventional Radiology Work Phone: Start: 05-18-2023 End: 61-83-2715vjrsfmygkmCB Marcia E Braun Work Phone: [facility] Work Phone: Start: 05-16-2023 End: 96-98-1611qwwimxnbvpVftdlpo Buehrer Other [employer] Other Start: 62-55-8272Irtweh outpatient visit 25 minutes Tom Esposito Vascular SurgeryStart: 05-02-2023 End: 51-80-5623Mttlhhs encounter procedure Keaton Rico Work Phone: [facility]-CT Scan [place] Work Phone: Start: 04-26-2023 End: 94-73-1224ysqcmafmofTiuhrb Ruttino Other [employer] Other Start: 08-43-4132Wdzpujm encounter procedureMadie Rios Vascular SurgeryStart: 02-14-2023 End: 66-03-0376tcsiysobihQzuutf Braun Other [employer] Other Start: 05-78-2782Cdowdhulq encounterKeaton Santiago [facility]tart: 12-23-2022 End: 92-02-6859wdivowiluyVwerfw Braun Other [employer] Other Start: 20-66-2849Sbtwcp outpatient visit 15 minutes Keaton Santiago [facility]: 11-12-2022 End: 27-40-7756egdvtbtebnObbyay Braun Other [employer] Other Start: 02-45-5608Pzhcjolln encounterKeaton Colin [facility]: 11-09-2022 End: 49-85-5304krzirxjlhxGbktyb Jacky Other [employer] Other Start: 09-58-5941Isyrql outpatient visit 15 minutes Keaton RicoDennis [facility] Hospitaltart: 72-05-6668Muyvbooli for other preprocedural examinationMOHAMAD ANNARegency Hospital Companytart: 11-01-2022 End: 64-24-3780fowmhabodzTI KEATON RICOFacility:F8Oyaqg: 11-01-2022 End: 93-01-3716Fkcavirsj for other preprocedural examinationDR KEATON RICO Facility:R8Nbsog: 10-29-2022 End: 11-10-1946cmxlcdympcFwjrao Braun Other [employer] Other Start: 04-88-0813Uljsnoryn encounterKeaton Santiago [facility]tart: 10-18-2022 End: 37-04-8558Jcpnmgp encounter procedureMaritza Balderas CAGLE [facility] start: 09-28-2022 End: 46-61-1324bqvjjtmorqYQ MISCFacility:B2Mtche: 06-16-2022 End: 29-59-8701zudzzgjucwZI KEATON RICOFacility:D1Mshho: 04-19-2022 End: 96-89-6520Zzqloho encounter procedurePasari CAGLE [facility] start: 01-19-2022 End: 51-02-2565Qumfmbc encounter procedurePasari Balderas CAGLE [facility] Start: 12-14-2021 End: 63-37-1563tbjjigmdcmJF KEATON RICOFacility:M1Ueywu: 05-83-7187Yhftdclxo encounterTom NeffThe Medical Center of [facility] Vascular SurgeryStart: 13-07-4227QQIO visit new patientJehemalatha OteroUCHealth Highlands Ranch Hospital Vascular SurgeryStart: 06-05-2019 End: 25-85-3348Kuyiewk encounter procedureEHAB A ELTAHAWYFacility:[facility] Procedures DateProcedureProcedure DetailPerforming ClinicianStart: 63-53-0338KR Heart TransthoracicAurora Staci Start: 03-52-8207Qmmqt brachial pressure indexKeaton Rico MD Work Phone: Start: 18-30-9727Qgyes brachial pressure indexMD Keaton Rico Work Phone: Start: 02-63-8973Ngpvl chest X-rayMD Keaton Rico Work Phone: Start: 32-16-1219YgvtdotxxpxWF Keaton Rico Work Phone: Start: 65-50-5864VhrtlasqgwiVD Keaton Rico Work Phone: Start: 63-81-8157KatospmvmdaKG Marcia Braun Work Phone: Start: 43-60-5018Bcmfqvjp screenWesleycarlos Southview Medical Centeromment on above:Result Comment: PERFORMED BY: [facility] [place] [address] PATHOLOGIST BANANA RIPENING ROOM SUPERVISOR JOLIE MASON M.D.Start: 84-96-8381YN Angiogram w/TLA/Stent Right Leg (Right)MD Keaton Rico Work Phone: Start: 80-10-7907Ralad brachial pressure indexMD Keaton Rico Work Phone: Start: 91-18-0518Rrrnym scan of lower limb arteriesMD Keaton Rico Work Phone: Start: 59-35-2532Dommp limb angiographyMD Keaton Rico Work Phone: Start: 56-30-8434DE of abdominal aorta with contrastMD Keaton Rico Work Phone: Start: 36-22-9673WZW screeningDR KEATON RICOComment on above:Performed By: #### PSASC #### [facility] [address] [place] [address] Dr. Kathy ChangStart: 08-78-8189CpcjhkvmnfDfjiotg CAGLE Start: 34-55-9269Ankvusrlrr [email or web address] CAGLE Herniated structure (morphologic abnormality)Maritza CAGLE Plan of Treatment DateCare ActivityDetailAuthorStart: 11-15-2891Vrdupjy referralTrinity Health System West Campus Work Phone: Start: 97-58-5025InospmtoqkofYyhlkbnsaACMC Healthcare System Glenbeightart: 82-53-3039YpvniyjwlACMC Healthcare System Glenbeightart: 01-44-1982Ivhkqgj endarterectomyOR Fem-Fem/Fem Endart/Patch Graft (Right) [facility] Glenbeightart: 48-11-9810Tjjmbiyb admissionACMC Healthcare System Glenbeightart: 69-07-0438KjnayssmqDayton Children'S HospitalAnkle brachial pressure indexDayton Children'S HospitalAnkle brachial pressure indexDayton Children'S HospitalPatient EducationGrand [facility]tr Work Phone: Patient referralGrand Lake Joint [facility] Work Phone: Immunizations Immunization DateImmunizationNotesCare PcailqlqUsjfchde10-97-0398PUNI-MwD-2 (COVID-19) mRNA BNT-162b2 vaxMaritza CAGLE [facility] AndersonComment on above:Result Comment: 2022-10-14: [id number] Jayleen Perkins (Pfizer)MD Keaton Rico Work Phone: [facility]04-12-2021COVID-19 mRNA, Jayleen (Pfizer)MD Keaton Rico Work Phone: [facility]04-09-2021SARS-CoV-2 (COVID-19) Ad26 vaccine, recombinantPatrick CAGLE [facility]03-30-2021SARS-CoV-2 (COVID-19) mRNA BNT-162b2 vaxPatrick CAGLE [facility]03-12-2021SARS-CoV-2 (COVID-19) Ad26 vaccine, recombinantPatrick CAGLE [facility]03-08-2021SARS-CoV-2 (COVID-19) mRNA BNT-162b2 vaxPatrick CAGLE [facility]02-25-1998Hep A, unspecified formulationPatrick CAGLE [facility]02-25-1998hepatitis B vaccine, adult dosagePatrick CAGLE [facility]07-30-1997hepatitis B vaccine, adult dosagePatrick CAGLE [facility]06-24-1997Hep A, unspecified formulationPatrick CAGLE [facility]06-24-1997hepatitis B vaccine, adult dosagePatrick CAGLE [facility]06-24-1997Td(adult) unspecified formulationPatrick CAGLE [facility] DatePayer CategoryPayerPolicy ID01-01-2025Medicare [id number]-dyq [id number] [id number] 2.840.1.039789.3.57[id number] 2.840.1.457322.3.57[id number] 2.840.1.065605.3.57[id number] 2.840.1.471104.3.57[id number] 2.840.1.681713.3.57[id number] 2.840.1.622752.3.57[id number] 2.840.1.070574.3.57[id number] 2.16840.1.9[id number] 2.16840.1.285752.3.579.2.531 [id number] 2.16840.1.0[id number] 2.16840.1.218[id number] 2.16.840.1.159044.3.579.2.531 Social History DateTypeDetailFacilityStart: 12-21-2021 End: 65-60-4670Rowtfoa smoking statusHeavy tobacco smoker (finding)[facility] [employer] Other Start: 09-84-9178Ysm Assigned At [facility] [employer] Other Start: 05-18-2023 End: 35-33-0137Qasezry smoking status NHISSmoker (finding)[facility]ightart: 65-10-0443Hiq Assigned At [facility]tart: 10-11-2023 End: 85-48-5630Lsmdfhm smoking status NHISEx-smoker (finding)[facility]ightart: 53-35-2616IszFipebot sex unknown (finding)[facility]ightart: 29-05-1839VgnTllc (finding)[facility] Glenbeighexual OrientationExecutive Urology of [facility] Medical Equipment Procedure CodeEquipment CodeEquipment Original TextEquipment IdentifierDates Angiogram, lower extremity, leftMultiple peripheral artery stent, bare-metal [id number] FDAStart: 70-70-5635Hyryfqqkf, lower extremity, leftMultiple peripheral artery stent, bare-metal ([id number] FDAStart: 29-19-3245Nbtdjdbqf, for thrombolysis follow-upMultiple peripheral artery stent, bare-metal ([id number] FDAStart: 49-34-1482Pkxxfmlfz, for thrombolysis follow-upMultiple peripheral artery stent, bare-metal ()[id number] FDAStart: 05-22-8476Gocahduj peripheral artery stent, bare-metal()[id number] FDAStart: 52-09-8227Dfqqrdjk peripheral artery stent, bare-metal ()[id number] FDAStart: 09-63-5851Xnygfiue peripheral artery stent, bare-metal()[id number] FDAStart: 05-21-2021 Goals DatePatient GoalDesired Activity/State Functional Status AjqePrztfhybxlKvzbaoQdnvqycd52-56-2585Uprvgqzhzi statusPatient at Baseline [facility] Work Phone: 1(175) 981-24240204247-77-6486Hnomalfcab StatusN/AExecutive Urology of [facility] Rqnresqd18-14-0894Tncneoozhw StatusN/AFSelect Medical [facility] Mental Status GbkwIxfosurbboNezmavEzvdpkuq06-00-5973Lzgijvtjx functionCognitive Status Patient at BaselineAv[facility] System Work Phone: Clinical Notes 05-11-2021 to 04-04-2025 Note Date & OdnfNsnsAenhjtvf18-55-1919 Hospital Discharge instructions Patient Education 04/04/2025 16:13:00 [...] Follow these instructions at home: Medicines Take ghbe-qmq-oyspptq and prescription medicines only as told by [...] important. Where to find more information National [place] of Diabetes and Digestive and Kidney Diseases: [...] depends on the type of prostatitis. Take fjuo-tej-mrdpfrk and prescription medicines only as told by [...] provider. Document Revised: 06/02/2023 Document Reviewed: 06/02/2023 [employer] Patient Education 2023 [employer]. 04/04/2025 16:12:59 Benign Prostatic Hyperplasia Benign Prostatic [...] urethra. Follow these instructions at home: Take xsgt-mhb-vshlxda and prescription medicines only as told by [...] provider. Document Revised: 02/03/2022 Document Reviewed: 02/03/2022 [employer] Patient Education 2023 [employer]. Follow Up Care 04/03/2025 09:06:46 With:XAVI Small APRN, FRANKLIN Metcalf, URL Address: When: Unknown Comments:2 mos w/ PSA [facility] 09-04-2025 NotePatient Education Infectious Disease Prostatitis Prostatitis [...] these instructions at home: Medicines ??? Take efjd-hqg-jedtbii and prescription medicines only as told by [...] provider. This is important. 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 09-18-2024 NoteCardiology Clinic Note Pawan Bustillo is a 68 y.o. year old male patient with hypertension, hyperlipidemia, tobacco abuse, PAD s/p bilateral common and bilateral external iliac stents by Dr. Schroeder at [facility] in 05/2021, and CAD status post [...] abnormal Benign prostatic hyperplasia with urinary obstruction Dwjje-4-rumtcbdnvmx deficiency (CMS/HCC) Arthritis Claudication (CMS/HCC) Feeling of incomplete bladder emptying Gastroesophageal reflux disease Internal derangement of left shoulder FPC current use of inhaled steroid Multiple pulmonary [...] external iliac stents by Dr. 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02-04-2025 Radiology Diagnostic study [facility] [address] [place] [address] Ultrasound Report Signed Patient: Pawan Bustillo MR#: [id number] : 1955 Acct:[id number] Age/Sex: 68 / M ADM Date: 5 Loc: [facility] Room: Type: [facility] Attending Dr: Tom Schroeder MD Ordering Provider: [...] Tom Schroeder M.D.09/04/2024 1:31 PM Dictation Location: [place] [address] Tech: Irma Jimenez Transcribed By: NOÉ 09/04/24 133 Dictated By: Tom Schroeder MD 09/04/24 133 Signed By: 09/04/24 133 [facility] Work Phone: 1(270) 988-184712-30-2024 Evaluation note* Diagnosis Onset Date Resolution Status Admit Date COPD with acute bronchitis acuteDecember 2023 2:35pmFormer smokeracuteFebruary 2024 12:56pm Peripheral arterial occlusive diseaseacuteFebruary 2024 12:56pm [facility] Work Phone: 1(694) 396-196202-17-2024 Consult note Author Juventino Kruse [facility] September 17, 2023 9:58amNote Date/TimeFebruary 2023 9:[place] [address] Pulmonology Consult Note Signed Patient: Pawan Bustillo MR#: [id number] : 1955 Acct:[id number] Age/Sex: 67 / M Adm Date: 4 Loc: Room: [address] [place] [address] Type: ADM IN Attending Dr: Tom Schroeder [...] negative unless noted below or in HPI [facility] Medical History (Updated 09/17/23 @ 09:57 by Juventino Kruse MD) BPH (benign prostatic hyperplasia) Problem List clean-up per request of Phys. [facility] COPD (chronic obstructive pulmonary disease) Problem List clean-up per request of Phys. [facility]HR [facility] Myocardial infarct Problem List clean-up per request of Phys. [facility] Surgical History H/O repair of rotator cuff Problem List clean-up per request of Phys. [facility]HR [facility] History of ankle surgery RIGHT Problem List clean-up per request of Phys. EHR [facility] H/O hernia repair Problem List clean-up per request of Phys. [facility]HR [facility] H/O heart artery stent Problem List clean-up [facility]. [facility] (Updated 06/13/23 @ 10:05 by [...] signed by Juventino Kruse MD> 09/17/23 0958 [facility] Work Phone: 1(484) 864-119702-16-2024 Procedure noteDayton [facility]02-15-2024 Progress note Author Tom Schroeder [facility] September 15, 2023 3:56pmNote Date/TimeFebruary 2023 3:56pm[place] [address] Vascular Surgery Progress Note Signed Patient: Pawan Bustillo MR#: [id number] : 1955 Acct:[id number] Age/Sex: 67 / M Adm Date: 4 Loc: Room: [address] [place] [address] Type: ADM IN Attending Dr: Tom Schroeder [...] 65.7 64.5 Lymph % (Auto) 22.1 22.9 Ferry % (Auto) 7.3 8.6 Eos % (Auto) 4.1 3.7 Baso % (Auto) 0.8 0.3 Nucleat RBC Rel Count 0.2 0.1 Neut # (Auto) 4.0 3.9 Lymph # (Auto) 1.3 1.4 Ferry # (Auto) 0.4 0.5 Eos # (Auto) [...] 79.7 85.7 Lymph % (Auto) 12.0 7.7 Ferry % (Auto) 7.2 5.8 Eos % (Auto) 0.9 0.4 Baso % (Auto) 0.2 0.4 Nucleat RBC Rel Count 0.1 0.1 Neut # (Auto) 6.0 7.3 Lymph # (Auto) 0.9 L 0.7 L Ferry # (Auto) 0.5 0.5 Eos # (Auto) [...] foot with an abnormal physical examination despite anabaptism of his inflow. It is likely that [...] <Electronically signed by MD Tom Schroeder> 09/15/23 9871 [facility] Work Phone: 1(956) 554-232402-12-2024 Evaluation note* Encounter Date Diagnosis Assessment Notes [...] aware that he needs to discontinue smoking. [employer] Other 10-16-2023 Evaluation note* Encounter Date Diagnosis [...] in addition to his current medical regimen. [employer] Other 09-26-2023 Evaluation note* Encounter Date Diagnosis [...] in peripheral vascular disease (ICD-10 - I73.9) [employer] Other 05-25-2023 Evaluation note* Encounter Date Diagnosis [...] may not be necessary at this time. [employer] Other 04-11-2023 Evaluation note* Encounter Date Diagnosis Assessment Notes Treatment Notes Treatment Clinical Notes Oct, Bronchitis (ICD-10 - J40) Bronchitis: Care Instructions material was printed Pt is acutely sick with acute complicated bronchitis Recommend: Antibiotics: Azithromycin 50 mg po daily for 5 days Bronchodilator: Albuterol with prednisone taper expectorent: Mucinex\ Pawan agreed I could send note to [facility] Cardiology. Will check on his improvement on 11/12. [employer] Other 09-19-2022 Hospital Discharge instructions Patient Education [...] prostate. Follow these instructions at home: Take crec-dtf-unvsaxq and prescription medicines only as told by [...] 07/15/2001 Document Revised: 09/30/2018 Document Reviewed: 04/07/2017 [employer] Patient Education 2020 [employer] Follow Up Care 01/19/2022 12:19:40 With:TSERING BARRY, Maritza Balderas, URL Address: [facility] [address] [place] [address]- [phone] When:10/17/2022 Comments:PVR [facility] Ronald 06-21-2022 Hospital Discharge instructions Patient Education 01/19/2022 [...] [facility] [address], [place] [address] Business (1) When:04/21/2022 12:18:02 Comments:With a bladder scan PVR [facility]06-21-2022 Evaluation + Plan noteExtracted from: Title:Urology Progress [...] Date:04/19/2022 09:30:00 AM Scheduled Provider:Maritza CAGLE [facility]O Office Visit [facility]10-11-2021 Evaluation note* Encounter Date Diagnosis Assessment Notes [...] is completed May,urrent smoker (ICD-10 - F17.200) [employer] Other Evaluation + Plan note Future Appointments Appointment Date:10/18/2022 10:45:00 AM Scheduled Provider:Maritza CAGLE MD Location:[facility] Appointment Type:URO Office Visit Diagnostic Tests Pending * PSA Total 04/19/22 [facility] evaluation + Plan note Future Appointments Appointment Date:06/06/2025 08:00:00 AM Scheduled Provider:XAVI Small APRN, [place] X Location:[facility] Appointment Type:URO Office Visit Diagnostic Tests Pending * PSA Screen, Total 04/04/25 [facility] evalytuxdx noteNo InformationNort [employer] Other Evaluation noteNo assessment information available [facility] [employer] Work Phone: Evaluation note* Diagnosis Onset Date Resolution Status Peripheral arterial occlusive disease acutePostoperative acute respiratory failureacute [facility] [employer] Work Phone: Evaluation note* Diagnosis Onset Date Resolution Status Bronchitis acuteCOPD exacerbationacutePeripheral arterial occlusive diseaseacute [facility] [employer] Work Phone: History general Narrative - Reported* Type Description Date Medical History PVOD w/claudication Medical HistoryhypercholesterolemiaMedical HistoryCADMedical HistoryMISurgical Historyhernia repairSurgical Historyheart stentSurgical Historyankle surgery [employer] Other History general Narrative - Reported* Type Description Date Medical History PVOD w/claudication Medical HistoryhypercholesterolemiaMedical HistoryCADMedical HistoryMISurgical Historyhernia repairSurgical Historyheart stentSurgical Historyankle surgery Hospitalization HistorySEE SURGICAL [employer] Other History general Narrative - Reported* Type Description Date Medical History PVOD w/claudication Medical HistoryhypercholesterolemiaMedical HistoryCADMedical HistoryMISurgical Historyhernia repairSurgical Historyheart stentSurgical Historyankle surgery Surgical HistoryLeft shoulder surgery11/2022Hospitalization HistorySEE SURGICAL [employer] Other History general Narrative - Reported* Type Description Date Medical History PVOD w/claudication Medical HistoryhypercholesterolemiaMedical HistoryCADMedical HistoryMIMedical History[ ]Surgical Historyhernia repairSurgical Historyheart stentSurgical Historyankle surgerySurgical HistoryLeft shoulder surgery11/2022Surgical History[ ]Hospitalization HistorySEE SURGICAL [employer] Other Histwww general Narrative - Reported* Type Description Date Medical History PVOD w/claudication Medical HistoryhypercholesterolemiaMedical HistoryCADMedical HistoryMIMedical HistoryPADMedical History[ ]Surgical Historyhernia repairSurgical Historyheart stentSurgical Historyankle surgerySurgical HistoryLeft shoulder surgery11/2022 Surgical HistoryLEG NYZBOW91/2023Hospitalization HistorySEE SURGICAL [employer] Other Hospital course Narrative No data available for this section [facility] Dis[facility] instructions No data available for this section [facility] Hospital Discharge instructionsAmbulatory Orders* Referral to Pulmonology Time Frame: 05/14/25, Location: None [facility] Work Phone: Progress note No data available for this section [facility] SystemReason for referral (narrative)No reason for referral information availableTrinity [facility] Work Phone: Summary Purpose Family History Relationship [...] CREATED AUTHOR AUTHOR'S ORGANIZ ATION 11/06/2022 [facility] DATE CREATED AUTHOR AUTHOR'S ORGANIZ ATION 09/06/2024 [facility] DATE CREATED AUTHOR AUTHOR'S ORGANIZ ATION 04/03/2025 [facility] DATE CREATED AUTHOR AUTHOR'S ORGANIZ ATION 04/07/2025 [facility] Care Team (unrecognized sect ion and [...] Member Role Status Dates Kailyn Muro APRN REPRODUCTION TECHNICIAN-C Attending Provider Act esmer Start: October 20, [...] 2025 End: March 25, 2025Tosha Jeff APRN REPRODUCTION TECHNICIAN-CAttending Provider ActiveStart: March 25, 2025 End: March [...] painGO OVER CT [place] [facility] [place] [facility] Follow-up CT angiogramPain in legs, previous angiogramrefillCOUGHING, [...] BE BASED ON THE PRIMARY CLINICAL RECORDS. [facility] Va Medical CenterInVision [facility]. provides no warranty or guarantee of the accuracy or completeness of information in this document.
--- OUTSIDE RECORDS SUMMARY | 2025-05-24 12:07 | XMS_ITS | Encounter Summary ---
Author Organization [facility] Address [address] [place] [address] Care Team Providers Care Hay Buckler Name Role Phone Nakia Rascon MD Primary Care Provider [phone] Encounter Details DateTypeDepartmentCare Team (Latest Contact Info)Ocbqgmtffyq56/24/2025Orders Only [place] [address] [place] [address] Kyleigh Colby MA Shortness of breath (Primary Dx) Social History Tobacco UseTypesPacks/DayYears UsedDateSmoking Tobacco: FormerCigarettes Smokeless Tobacco: NeverAlcohol UseStandard Drinks/WeekCommentsNot Currently0 (1 standard drink = 0.6 oz pure alcohol)moderateUT Safety & EnvironmentAnswerDate RecordedFear of Current or Ex-PartnerNot on file09/22/2023Emotionally AbusedNot on file09/22/2023hysically AbusedNot on file09/22/2023Sexually AbusedNot on file09/22/2023hysically or Sexually AbusedNot on file09/22/2023Sex and Gender InformationValueDate RecordedSex Assigned at QczwxVxhf94/17/2023 8:56 AM EDT Legal WdgWnsf6001/27/2022 9:50 PM EDTGender ZjaiwgetSntf77/17/2023 8:56 AM EDT Sexual OrientationHeterosexual or Esdblskp26/17/2023 8:56 AM EDTdocumented as of this encounter Plan of Treatment DateTypeDepartmentCare Team (Latest Contact Info)Arsxvfvkcgx83/21/2025 9:00 AM ESTOffice Visit [facility] [address] [place] [phone] Juan Cardona MD [address] [facility] [place] [address] NameTypePriorityAssociated DiagnosesOrder ScheduleCBC and differentialLabRoutine Shortness of breath Expected: 05/24/2025 (Approximate), Expires: 6B-type natriuretic peptideLabRoutine Shortness of breath Expected: 05/24/2025 (Approximate), Expires: 05/24/2026documented as of this encounter Visit Diagnoses Diagnosis Shortness of breath- Primary documented in this encounter Care Teams Team MemberRelationshipSpecialtyStart DateEnd Date Nakia Rascon MD [address] [facility]A PCP - General09/27/22documented as of this encounter
--- OUTSIDE RECORDS SUMMARY | 2025-05-24 12:07 | XMS_ITS | Encounter Summary ---
Author Organization [facility] Address [address] [place] [address] Care Team Providers Care Sack Maker Name Role Phone Nakia Rascon MD Primary Care Provider [phone] Encounter Details DateTypeDepartmentCare Team (Latest Contact Info)Shgqwfqmybw08/24/2025Telephone [facility] [address] [place] [address] Kyleigh Colby MA Social History Tobacco UseTypesPacks/DayYears UsedDateSmoking Tobacco: FormerCigarettes Smokeless Tobacco: NeverAlcohol UseStandard Drinks/WeekCommentsNot Currently0 (1 standard drink = 0.6 oz pure alcohol)moderateUT Safety & EnvironmentAnswerDate RecordedFear of Current or Ex-PartnerNot on file09/22/2023Emotionally AbusedNot on file09/22/2023hysically AbusedNot on file09/22/2023Sexually AbusedNot on file09/22/2023hysically or Sexually AbusedNot on file09/22/2023Sex and Gender InformationValueDate RecordedSex Assigned at UqjbxMkpx61/17/2023 8:56 AM EDT Legal BjsGgdu8201/27/2022 9:50 PM EDTGender SttajokiRdvf80/17/2023 8:56 AM EDT Sexual OrientationHeterosexual or Bajrissd38/17/2023 8:56 AM EDTdocumented as of this encounter Miscellaneous Notes * Telephone Encounter - Kyleigh Colby MA - 05/24/2025 11:31 AM EDT Patient called stating he's been battling (possible) bronchitis/URI. Said he's taken several antibiotics without improvement. Had CXR on 05/21 and said PCP's office told him he did not have pneumonia. He is due to [facility] for Dr. Cardona. He asked if being on an antibiotic would affect the result. I told him no. Since he's been SOB I did also order CBC and BNP since he hasn't had lab work in 1 year. Orders faxed. documented in this encounter Plan of Treatment DateTypeDepartmentCare Team (Latest Contact Info)Irzhhdnevbp21/21/2025 9:00 AM ESTOffice Visit [facility] [address] [place] [address] Juan Cardona MD [address] [facility] [address] [facility] [place] [address] documented as of this encounter Visit Diagnoses Not on filedocumented in this encounter Care Teams Team MemberRelationshipSpecialtyStart DateEnd Date Nakia Rascon MD [address] [facility] [address]A PCP - General09/27/22documented as of this encounter
[2025-05-24 12:37] LABS: Hematocrit 48.9 % (42.0-54.0); Hemoglobin 17.0 g/dL (14.0-18.0); Immature Granulocytes Abs Auto 0.12 10^3/uL (0.00-0.03); Immature Granulocytes Pct Auto 1.4 % (0.0-0.5); Lymphocytes Absolute Auto 1.3 10^3/uL (1.2-3.8); Mean Corpuscular HGB Conc 34.8 g/dL (29.9-35.2); Mean Corpuscular Hemoglobin 35.7 pg (25.9-34.0); Mean Corpuscular Volume 102.7 fL (80.0-94.0); Platelet Count 178 10^3/uL (150-450); Red Blood Count 4.76 10^6/uL (4.70-6.10); White Blood Count 8.5 10^3/uL (4.0-11.0)
[2025-05-24 13:17] LABS: Anion Gap 16.0; Blood Urea Nitrogen 16.0 mg/dL (7.0-18.0); Calcium 8.9 mg/dL (8.5-10.1); Carbon Dioxide 25.4 mmol/L (21.0-32.0); Chloride 98 mmol/L (98-107); Estimated GFR (African America >60 (>=60 mL/min/1.73m^2); Estimated GFR (Non-African Ame >60 (>=60 mL/min/1.73m^2); Glucose 95 mg/dL (74-106); NT Pro B Type Natriuretic Pept 80.0 pg/mL (<=900.0); Potassium 4.4 mmol/L (3.5-5.1); Sodium 135 mmol/L (136-145)
== END 2025-05-24 11:55 | disposition home or self-care (01) ==
PROVIDERS: PCP Family Medicine; Visit Provider Internal Medicine Interventional Cardiology
DX: I27.20 Pulmonary hypertension, unspecified (principal); R06.02 Shortness of breath
CPT/HCPCS: 36415; 80048; 83880; 85025

== ENCOUNTER 2025-05-24 12:05 | Outpatient (OUT) | payer MEDICARE, SELFPAY ==
--- OUTSIDE RECORDS SUMMARY | 2025-05-24 12:15 | XMS_ITS | CCD ---
Author Organization [facility] Care Team Providers Care Soil Sort Worker Name Role Phone ELTAHAWBennie, EHAB A Admitting Unavailable ELTAHAWY, EHAB A Attending Unavailable KEATON RICO Referring Unavailable KEATON RICO Primary Care Unavailable KEATON RICO Primary Care Physician [phone] Tom Schroeder Unavailable Keaton Rico Unavailable DR [...] Unavailable MD Keaton Rico Primary Care Provider ALNDEN Honeycutt Attending Provider MD Tom Schroeder Attending Provider MD Keaton Rico Primary Care Provider MD Tom Schroeder Attending Provider MD Tom Schroeder Admit Provider [phone] MD Juventino Kruse Other Provider MD Keaton Rico Primary Care Provider MD Tom Schroeder Attending Provider Keaton Rico MD Primary Care Provider [phone] Tom Schroeder MD Attending Provider Tom Schroeder [...] Attending Unavailable Keaton Rico MD Attending Provider [phone] Allergies Allergy ClassificationReported Allergen(s)Allergy TypeDate of OnsetReaction(s) Facility (1 source)No Known Medication Allergies; Translations: [No Known Medication Allergies]Propensity to adverse reactions (disorder)[facility] Repository Medications Current Medications MedicationDrug Class(es)DatesSig (Normalized)Sig (Original)acyclovir 400 mg oral tablet (3 sources)Herpesvirus Nucleoside Analog DNA Polymerase Inhibitor, Herpes Simplex Virus Nucleoside Analog DNA Polymerase Inhibitor, Herpes Zoster Virus Nucleoside Analog DNA Polymerase InhibitorStart: 02-55-1529lyoz 1 mg by mouth twice dailyacyclovir 400 mg Tab mg tab(s), Oral, BID, Refills(s) 0 Start Date: 06/22/21 Status: Orderedaspirin 81 mg oral capsule (20 sources)Platelet Aggregation Inhibitor, Nonsteroidal Anti-inflammatory Drug Start: 77-60-5503nups 1 mg by mouth every twenty-four hoursaspirin 81 mg oral capsule mg cap(s), Oral, q24hr, Refills(s) 0 Start Date: 04/04/25 Status: Ordered Repeat number: 1Start: 02-49-8058igtp 1 tablet by mouth once dailyAspirin 81 mg tablet,chewable Active 81 MG PO Daily September 04, 2024 1:00am Complies with drug therapyStart: 05-13-2021 End: 90-93-5307znxc 1 tablet by mouth once dailyAspirin (Aspir-81) 81 mg Tablet,Delayed Release (Dr/Ec) Discontinued 81 MG PO Daily May 13, 2021 12:00am September 17, 2023 5:28pmStart: 01-46-0110yyia 1 mg by mouth every four hoursaspirin [...] oral tablet (18 sources)Macrolide AntimicrobialStart: 12-07-2024 End: 36-58-7035Bdugcmscnacu 250 mg tablet Active 0 PO .COMPLEX May 14, 2025 1:31pm For 250 mg dose pack: take 500 mg today (day 1), then 250 mg for 4 days (days 2-5) PO Complies with drug therapyStart: 07-30-2024 End: 56-88-1453Flsrewjpdwgz 250 mg tablet Discontinued 0 PO .COMPLEX July 30, 2024 1:00am September 04, 2024 2:25pm For 250 mg dose pack: take 500 mg today (day 1), then 250 mg for 4 days (days 2-5) POStart: 10-20-2023 End: 08-40-6784Otteuelixabt 250 mg tablet Discontinued 250 MG PO daily 01 03October 20, 2023 12:00am May 09, 2024 8:04am Take 2 today and then 1 for the next four daysStart: 05-16-9413Pvtsvzdafgoa 250 MG as directed Orally 2 tabs po today, then 1 tab daily x 4 more days for 5 Oct, Not-Takingdoxycycline hyclate 100 mg oral capsule (2 sources)Tetracycline-class DrugStart: 04-04-2025 End: 18-54-6638mjisgmjeqao hyclate 100 mg Cap 100 mg = 1 cap(s), Oral, BID, may substitute hyclate for monohydratebased on availability, X 14 day(s), # 28 cap(s), Refills(s) 0, Pharmacy: [facility]/pharmacy #[id number], 180, cm, 04/04/25 15:44:00 EDT, Height/Length Dosing, 88.5, kg, 04/04/25 15:44:00 EDT, Weight Dosing Start Date: 04/04/25 Stop Date: 04/18/25 Status: Ordered Quantity: 28.0 Unit: cap(s) Repeat number: 1Start: 01-19-2022 End: 13-44-2458obhd 1 capsule by mouth every twelve hoursdoxycycline hyclate 100 mg Cap 100 mg = 1 cap(s), Oral, q12hr, X 21 day(s), # 42 cap(s), Refills(s)0, Pharmacy: [facility]/pharmacy #[id number], 180, cm, 01/15/22 10:43:00 EDT, Height/Length Dosing, 85, kg, 12/21/21 11:01:00 EDT, Weight Dosing Start Date: 01/19/22 Stop Date: 02/09/22 Status: OrderedErythromycin (8 sources)Macrolide, Macrolide AntimicrobialStart: 67-71-4412buvbnvlxcjyy ophthalmic 0.5% ointment 0.5 in, Eye-Both, QID, 3.5 gram, Refill(s) 0 Start Date: 06/22/21 Status: Ordered Quantity: 3.5 Unit: g Repeat number: 1Start: 20-99-7445yfgnegxxpuza ophthalmic 0.5% ointment 0.5 in, Eye-Both, QID, 3.5 gram, Refill(s) 0 Start Date: 06/22/21 Status: OrderedStart: 03-01-2689oqxxqmtdbklr ophthalmic 0.5% ointment 0.5 in, Eye-Both, QID, 3.5 gram, Refill(s) 0 Start Date: 06/22/21 Status: OrderedErythromycin 5 MG/GM 1 application into the lower eyelid of affected eye Ophthalmic Four times a day Activeezetimibe 10 mg oral tablet (14 sources)Dietary Cholesterol Absorption InhibitorStart: 22-49-7021larf 1 tablet by mouth once daily in the morningezetimibe 10 mg Tab TAKE 1 TABLET BY MOUTH EVERY DAY IN THE MORNING Start Date: 04/04/25 Status: Ordered Repeat number: 3Zzimdcuksdt-Gjywymjzg-Sigzmkkm (7 sources)Anticholinergic, Corticosteroid, beta2-Adrenergic AgonistStart: 31-20-7419Ffvqgekhafl-Umeclidin-Vilanter (Trelegy Ellipta) 100-62.5-25 mcg blister with device Active 1 INH INHALATION Daily May 13, 2021 12:00am Complies with drug therapyStart: 42-25-6825Xkyvpogqzzj-Umeclidin-Vilanter (Trelegy Ellipta) 100-62.5-25 mcg blister with device Active 1 INH INHALATION Daily May 12, 2021 11:00pmStart: 32-99-2089Oyxeeexmjth-Umeclidin-Vilanter (Trelegy Ellipta) 100-62.5-25 mcg blister with device Active 1 INH INHALATION Daily May 13, 2021 12:00amfurosemide 20 mg oral tablet (2 sources)Loop DiureticStart: 75-55-9388ngso 1 tablet by mouth once daily Furosemide 20 mg tablet Active 20 MG PO Daily May 14, 2025 12:00am Complies with drug therapyStart: 92-81-0041cqsa 1 tablet by mouth once daily furosemide 20 mg Tab 20 mg = 1 tab(s), Oral, Daily, # 30 tab(s), Refills(s) 0 Start Date: 04/04/25 Status: Ordered Quantity: 30.0 Unit: tab(s) Repeat number: 1 gatifloxacin 5 mg/ml ophthalmic solution (4 sources)Quinolone AntimicrobialStart: 56-49-6010dqwd 1 drop(s) into the eye(s) twice dailygatifloxacin 0.5% ophthalmic solution drop(s), BID, Refill(s) 0 Start Date: 06/22/21 Status: Ordered Repeat number: 124 hr metoprolol succinate 25 mg extended release oral tablet (8 sources)beta-Adrenergic BlockerStart: 68-98-3581ygko 1 tablet by mouth once dailyMetoprolol Succinate 25 mg tablet extended release 24 hr Active 25 MG PO Daily May 18, 2023 12:00am Complies with drug therapyStart: 89-14-8906ynci 10 mg by mouth once dailyMetoprolol Succinate Active 10 MG PO Daily May 17, 2023 11:00pmMetoprolol Succinate Activenitroglycerin 0.4 mg sublingual tablet (11 sources)Nitrate VasodilatorStart: 67-25-9267rltaqspvcnsrp 0.4 mg sublingual Tab TAKE 1 TABLET SUBLINGUALLY EVERY 5 MINUTES NEEDED FOR CHEST PAIN Start Date: 04/04/25 Status: Ordered Repeat number: 1Start: 05-18-2023 End: 22-76-6265Phmbckvmhixss 0.4 mg tablet, sublingual Active 0.4 MG SUBLINGUAL EVERY 5 MINUTES as needed for Chest Pain March 18, 2025 8:14am Complies with drug therapyStart: 76-01-3964Chneqotckvqjw 0.4 MG 1 tablet Sublingual as needed Jan, ActiveOxycodone-Ibuprofen (6 sources)Oxycodone-Ibuprofen ActivepredniSONE 20 mg oral tablet (6 sources)Start: 12-07-2024 End: 04-82-2114icmx 1 tablet by mouth twice dailyPrednisone 20 mg tablet Active 20 MG PO Twice daily May 14, 2025 1:31pm Complies with drugtherapy Start: 85-37-1141lhtf 2 tablets by mouth every twenty-four hourspredniSONE 20 MG 2 tablets Orally Once a day for 5 days November, Activerivaroxaban 2.5 mg oral tablet (10 sources)Factor Xa InhibitorStart: 57-50-7798ipbj 1 tablet by mouth twice dailyrivaroxaban 2.5 mg oral tablet TAKE 1 TABLET BY MOUTH TWICE A DAY Start Date: 04/04/25 Status: Ordered Repeat number: 1Start: 53-82-1167psjf 1 tablet by mouth twice dailyRivaroxaban (Xarelto) 2.5 mg tablet Active 0 .ROUTE .COMPLEX 60 March 04, 2025 8:06am TAKE 1 TABLET BY MOUTH TWICE A DAY Complies with drug therapyStart: 09-16-2023 End: 61-56-0428tssg 1 tablet by mouth twice dailyRivaroxaban (Xarelto) 2.5 mg tablet Discontinued 2.5 MG PO Twice daily 90 90 September 19, 2024 2:44pm March 04, 2025 8:06amTrelegy Ellipta 100 mcg (11 sources)take 1 puff(s) by inhalation once dailyTrelegy Ellipta 100 mcg 1 puff Inhalation Once a day ActiveTrelegy Ellipta 100 mcg-62.5 mcg-25 mcg inhalation powder (5 sources)Start: 58-29-4263hyex 1 puff(s) by mouth once dailyTrelegy Ellipta 100 mcg-62.5 mcg-25 mcg inhalation powder INHALE 1 PUFF ONCE DAILY. RINSE MOUTH AFTER USE Start Date: 04/04/25 Status: Ordered Repeat number: 1Start: 04-20-2021 take 1 puff(s) by inhalation once dailyTrelegy Ellipta 100 mcg-62.5 mcg-25 mcg inhalation powder puff(s), Inhalation, Daily, Refills(s) 0 Start Date: 04/20/21 Status: Ordered Repeat number: 1Start: 31-32-4642kndx 1 puff(s) by inhalation once dailyTrelegy Ellipta 100 mcg-62.5 mcg-25 mcg inhalation powder puff(s), Inhalation, Daily, Refills(s) 0 Start Date: 04/20/21 Status: OrderedvalACYclovir 500 mg oral tablet (3 sources)Herpesvirus Nucleoside Analog DNA Polymerase Inhibitor, Herpes Simplex Virus Nucleoside Analog DNA Polymerase Inhibitor, Herpes Zoster Virus Nucleoside Analog DNA Polymerase InhibitorStart: 20-56-4648xjmi 1 tablet by mouth twice dailyvalacyclovir 500 mg Tab TAKE 1 TABLET BY MOUTH TWICE A DAY DIRECTED Start Date: 04/04/25 Status: Ordered Repeat number: 1Valcyclovir-500 mg 500 mg (4 sources)take 1 tablet by mouth twice dailyValcyclovir-500 mg 500 mg one tab orally twice a day ActiveVentolin HFA 90 mcg/inh Aerosol (4 sources)Start: 07-61-9818jfqh 1 puff(s) by inhalation every six hoursVentolin HFA 90 mcg/inh Aerosol puff(s), Inhalation, q6hr, Refill(s) 0 Start Date: 04/20/21 Status: Ordered Repeat number: 1Start: 14-31-4833qnww 1 puff(s) by inhalation every six hoursVentolin HFA 90 mcg/inh Aerosol puff(s), Inhalation, q6hr, Refill(s) 0 Start Date: 04/20/21 Status: Ordered Completed/Discontinued Medications MedicationDrug Class(es)DatesSig (Normalized)Sig (Original)[id number] 200 actuat albuterol 0.09 mg/actuat metered dose inhaler (20 sources)beta2-Adrenergic AgonistStart: 05-13-2021 End: 03-26-8161kbkr 1 puff(s) by inhalation four times daily [...] oral capsule (3 sources)Non-narcotic AntitussiveStart: 07-30-2024 End: 43-47-6296Myvvswfxzrk 200 mg capsule Discontinued 200 MG PO 2-3 TIMES PER DAY as needed for cough 2023 1:00am September 04, 2024 2:25pm clopidogrel 75 mg oral tablet (5 sources)P2Y12 Platelet InhibitorStart: 09-16-2023 End: 50-65-2367chlu 1 tablet by mouth once dailyClopidogrel (Plavix) 75 mg tablet Discontinued 75 MG PO Daily September 16, 2023 1:00am September 04, 2024 2:28pmlisinopril 10 mg oral tablet (20 sources)Angiotensin Converting Enzyme InhibitorStart: 11-04-2023 End: 32-93-9625Mcqzxcyvps 10 mg tablet Discontinued 0 .ROUTE .COMPLEX January 11, 2024 1:03pm July 0943:13pm TAKE 1 TABLET DAILYStart: 11-04-2023 End: 08-50-8875Udilycticx 10 mg tablet Discontinued 0 .ROUTE .COMPLEX November 04, 2023 10:00am January 11, 2024 12:03pm TAKE 1 TABLET DAILYStart: 11-04-2023 End: 14-25-8233Wfvtctlixo Discontinued 0 .ROUTE .COMPLEX 90 November 04, 2023 11:00am January 11, 2024 1:03pm TAKE 1 TABLET DAILYStart: 04-20-2021 End: 08-75-5525gxss 1 tablet by mouth once dailyLisinopril 10 mg tablet Discontinued 10 MG PO Daily May 13, 2021 12:00am November 04, 2023 11:00am methylPREDNISolone 4 mg oral tablet (4 sources)CorticosteroidStart: 10-20-2023 End: 78-57-3686plxt 1 tablet by mouth onceMethylprednisolone (Medrol (Jhonatan)) 4 mg tablets,dose pack Discontinued 0 PO per package directions 19 01October 20, 2023 12:00am May 09, 2024 8:04am PO PER PKG DIRofloxacin 3 mg/ml otic solution (6 sources)Quinolone AntimicrobialStart: 74-80-4672Cvjuhbcwi 0.3 % as directed Ophthalmic every 12 hrs for 5 days Sep, Not-TakingStart: 10-29-2022 Ofloxacin 0.3 % as directed Ophthalmic every 12 hrs for 5 days Sep, Not-Takingprasugrel 10 mg oral tablet (19 sources)P2Y12 Platelet InhibitorStart: 04-20-2021 End: 19-71-9245vjvy 1 tablet by mouth once dailyPrasugrel Hcl 10 mg tablet Discontinued 10 MG PO Daily May 13, 2021 12:00am May 18, 2023 8:09am simvastatin 40 mg oral tablet (20 sources)HMG-CoA Reductase InhibitorStart: 04-20-2021 End: 50-62-0711ugvm 1 tablet by mouth at bedtimeSimvastatin 40 mg tablet Discontinued 40 MG PO Bedtime May 13, 2021 12:00am June 13, 2024 11:23amtamsulosin hydrochloride 0.4 mg oral capsule (20 sources)alpha-Adrenergic BlockerStart: 05-13-2021 End: 87-21-9754fkht 1 capsule by mouth twice dailyTamsulosin (Flomax) 0.4 mg capsule Discontinued 0.4 MG PO Twice daily 60 May 03, 2024 9:19am June 13, 2024 11:23amStart: 29-23-7236gpvl 1 capsule by mouth once dailyTamsulosin (Flomax) [...] Problem ClassificationProblemDateDocumented DateEpisodic/ChronicAcute myocardial infarction (4 sources)Myocardial judpbalcnv50-85-8388XrbnwmpSslzvt and peripheral arterial embolism or thrombosis (1 source)Embolism and thrombosis of iliac arteryChronicChronic obstructive pulmonary disease and bronchiectasis (20 sources)Chronic obstructive lung disease; Translations: [Pulmonary emphysema]13-08-7846XfjuwadQvqhejt on above:Problem List clean-up per request of Phys. EHR CmteChronic obstructive pulmonary disease and bronchiectasis (6 sources)Bronchitis, not specified as acute or chronic; Translations: [Bronchitis]EpisodicComplications of surgical procedures or medical care (7 sources)Respiratory failure; Translations: [Acute postprocedural respiratory failure]Onset: 769882-07-1184CzkdqlhgIarmbtkq atherosclerosis and other heart disease (6 sources)Atherosclerotic heart disease of [place] coronary artery without angina pectoris; Translations: [ASHD [place] CA W/O ANGINA PECTORIS]Onset: 35-77-1731YhfxsxeEcfjqqpd atherosclerosis and other heart disease (2 sources)Presence of coronary angioplasty implant and graft; Translations: [Presence of coronary angioplastyimplant and graft]Onset: 27-46-6425Lzvclbav Coronary atherosclerosis and other heart disease (1 source)Coronary atherosclerosis and other heart disease; Translations: [Atherosclerosis of [place] arteriesof extremities with intermittent claudication, bilateral legs]Onset: 03-05-3610Arcqngeit of lipid metabolism (6 sources)Hypercholesterolemia; Translations: [Mixed hyperlipidemia]Onset: 350367-54-2080GjbowqyUehvtjekm hypertension (5 sources)Benign essential hypertension; Translations: [Essential (primary) hypertension]Onset: 704733-29-3612PmtflalIgeuizmprdpun symptoms and ill- defined conditions (16 sources)Incomplete emptying of bladder; Translations: [Increased frequency of urination]11-69-6392WzgfewgrDnbbqasy (4 sources)Gsuuddcr56-64-3237KoprhgdRbdkivbznxl of prostate (11 sources)Benign prostatic hypertrophy with outflow obstruction; Translations: [Benign prostatic hyperplasia with lower urinary tract symptoms]Onset: 616910-22-0627YcruaewLbbmfmrsczuw conditions of male genital organs (7 sources)Prostatitis; Translations: [Inflammatory disease of prostate, unspecified]Onset: 436133-16-2099YqvfakltKzaheljlnmysmc (4 sources)Lhojpxfxh27-12-1875KulcoikXdmgp circulatory disease (5 sources)Peripheral arterial occlusive disease; Translations: [Disorder of arteries and arterioles, unspecified]89-72-0062HhbramlFaphf circulatory disease (4 sources)Disorder of arteries and arterioles, unspecified; Translations: [Arterial embolism and thrombosis of lower extremity]Onset: 904894-34-9073 ChronicOther circulatory disease (1 source)Other specified symptoms and signs involving the circulatory and respiratory systemsEpisodicOther lower respiratory disease (3 sources)Shortness of breath; Translations: [SHORTNESS OF BREATH]Onset: 36-33-8804LlaixaxlFjrcq screening for suspected conditions (not mental disorders or infectious disease) (4 sources)Patient encounter status; Translations: [Encounter for screening for malignant neoplasm of prostate]Onset: 506814-40-0665VglnfktiHbepjsoosp and visceral atherosclerosis (20 sources)Peripheral vascular disease; Translations: [Peripheral vascular disease, unspecified]Onset: 05-11-2021 Resolved: 65-71-0981JuqfucbElftdptj codes; unclassified (1 source)Other specified postprocedural statesEpisodicScreening and history of mental health and substance abuse codes (5 sources)Ex-smoker; Translations: [Personal history of nicotine dependence] 48-08-6411QohtxtuzEnsdgzefg-related disorders (20 sources)Smoker; Translations: [Nicotine dependence, unspecified, uncomplicated]Onset: 05-11-2021 Resolved: 958714-29-9287GlcmfinTmniqoz on above:Added secondary to documentation in Social History.Unclassified (4 sources)Finding of sensation of wzaxzxf54-86-7367Vtuzhzltitjd (1 source)J44.0 - Chronic obstructive pulmonary disease with (acute) lower respiratory infection,J20.9 - Acute bronchitis, unspecified Past or Other Problems Problem ClassificationProblemDateDocumented DateEpisodic/ChronicOther lower respiratory disease (4 sources)Other nonspecific abnormal finding of lung field; Translations: [OTH NONSPECIFIC ABN FIND LNG FIELD]Onset: 56-82-1893Qrdgdour Results Test NameValueInterpretationReference RangeFacilityAmbulatory Visit Summaryon 18-09-3154Ipqojhsbqn Visit SummaryAmbulatory Visit Summary PAWAN BUSTILLO :1955 [...] APRN, Lorin Haines Where: [facility] [address] [address]- Medications What How Much When Instructions Unchanged [...] signed up for this yet, please contact [employer] at [phone] to get signed up today. Language Information Language assistance services are available as needed. [facility] CenterU[facility] Office/Clinic Noteon 37-70-6093Ficbuvr Office/Clinic NoteUrology Office/Clinic Note Chief Complaint weak [...] with voice recognition artificial intelligence software, specifically [facility], [employer] and or [employer]. Substitutions may have occurred due to the [...] Urnls Dip Stick Auto w/o Microscopy POC 09991 3. Prostate cancer screening (Z12.5: Encounter for [...] day(s), # 28 cap(s), Refills(s) 0, Pharmacy: [facility]/pharmacy #[id number], 180, cm, 04/04/25 15:44:00 EDT, Height/Length Dosing, [...] clinic: Father. Heart diseas (more content not included)...[facility] Comment on above:Result Comment: Electronically Signed By: Orzech TRANSIT VEHICLE INSPECTOR, MACHINE ROOM ENGINEER-C, Lorin X\.morelia\Date and Time Signed: 04/04/25 16:13 BEN32lp 37-42-295709Vpptaaaag echo result from 03/21/2025: Leonora Cardona MD [...] for Nov with Dr. Cardona. Patient verbalized understanding.[facility] CenterOrders Onlyon 82-06-3396Ukqbxs [id number] Pawan Bustillo 1955 M Date Provider Department Center 03/21/2025 [id number], HISTORICAL [facility] Family History Problem Relation Age of Onset Coronary artery disease Mother Coronary artery disease Sister Coronary artery disease Brother Family Status - Relation Status Age at Mother Father Sister BrotherNormalUniCincinnati Children's Hospital Medical CenterOffice Visiton 90-57-2096Euykct- up [id number] Pawan Bustillo 1955 M Date Provider Department Center 03/11/2025 367-LEONORA CARDONA [facility] Family History Problem Relation Age of Onset Coronary artery disease Mother Coronary artery disease Sister Coronary artery disease Brother Family Status - Relation Status Age at Mother Father Sister Brother Level of Service:48509 MS OFFICE/OUTPATIENT ESTABLISHED MOD [facility] 74-26-9327Qmvfku-up visit [id number] Pawan Bustillo 1955 M Date Provider Department Center 09/18/2024 3848-ARAVIND JOSÉ [facility] Family History Problem Relation Age of Onset Coronary artery disease Mother Coronary artery disease Sister Coronary artery disease Brother Family Status - Relation Status Age at Mother Sister Brother Level of Service:56083 MS OFFICE/OUTPATIENT ESTABLISHED LOW MDM 20 [facility] HospitalUS ankle/arm indiceson 80-89-2923RF ankle/arm indicesSelect Medical [facility] [address] [place] [address] Ultrasound Report Signed Patient: Pawan Bustillo MR#: [id number] 3 : 1955 Acct:[id number] Age/Sex: 68 / M ADM Date: 09/04/24 Loc: [facility] ER Room: Type: [facility] CLI Attending Dr: Tom Schroeder MD Ordering Provider: Tom Schroeder MD Date of Service: 09/04/24 US/US ankle/arm indices: I70.213 - Atherosclerosis of [place] arteries of extremiti... Copies to: Tom Schroeder [...] Tom Schroeder M.D.09/04/2024 1:31 PM Dictation Location: [place] [address] Tech: Irma Jimenez Transcribed By: NOÉ 09/04/24 133 Dictated By: Tom Schroeder MD 09/04/24 133 Signed By: 09/04/24 [facility] Medical CenterUS ankle/arm indiceson 24-77-0394RY ankle/arm indicesSelect Medical [facility] [address] [place] [address] Ultrasound Report Signed Patient: Pawan Bustillo MR#: [id number] 3 : 1955 Acct:[id number] Age/Sex: 68 / M ADM Date: 01/17/24 Loc: [facility] ER Room: Type: REG CLI Attending Dr: Tom Schroeder MD Ordering Provider: Tom Schroeder MD Date of Service: 01/17/24 US/US ankle/arm indices: I70.213 - Atherosclerosis of [place] arteries of extremiti... Copies to: Tom Schroeder [...] Tom Schroeder M.D.01/17/2024 1:08 PM Dictation Location: [place] [address] Tech: Maki Jauregui Transcribed By: NOÉ 01/17/24 1308 Dictated By: Tom Schroeder MD 01/17/24 1308 Signed By: 01/17/24 1308[facility] Physician GroupXR chest 1V portableon 65-43-0213CS chest 1V portableMCCULLOUGH-HYDE [facility] [place] [address] XRay Report Signed Patient: Pawan Bustillo MR#: [id number] 3 : 1955 Acct:[id number] Age/Sex: 67 / M ADM Date: 09/14/23 Loc: Room: 6J6789-7 Type: ADM IN Attending Dr: Tom Schroeder [...] Sonal Kebede M.D.09/17/2023 10:16 AM Dictation Location: [place] [address] Transcribed By: [facility] 09/17/23 1016 Dictated By: Sonal Kebede MD 09/17/23 1013 Signed By: 09/17/23 1016[facility] Physician GroupActivated Clotting Timeon 41-25-4061Tgbvdltzf Clotting Time POS576 uAolpkj82-542Vmr [facility] Physician GroupComment on above:Result Comment: Reference Range: 90-139 (Non-heparinized) PERFORMED BY: [place] [address] PATHOLOGIST HOT HEAD MACHINE OPERATOR JOLIE MASON M.D.Performed By: #### CBC, FIB-C, PP #### [place] [address] USAActivated partial thromboplastin time (aPTT) in platelet poor plasma by coagulation aOrdered By: Tom Schroeder on 11-85-2871nSMZ Coag (PPP) [Time]32.2 s25.1-36.5FSt. Anthony's HospitalComment on above:A hematocrit value greater than 55% may lead to inaccurate results in coagulation testing. Patientshaving hematocrit values >55% require a special collection tube for coagulation studies. Please contact the laboratory at [phone] for redraw instructions.Automated basophil %Ordered By: Tom Schroeder on 00-28-5681Vhrchtpye/100 WBC (Bld)0.7 %Normal.[facility] Comment on above:Order Comment: Comment Every 6 hour while on tPAPerformed By: #### PP, FIB-C, CBC ####[place] [id number] USAAutomated basophil countOrdered By: Tom Schroeder on 09-16-2023 Basophils (Bld) [#/Vol]0.1 10*3/uLNormal0.0-0.2FSt. Anthony's Hospital Comment on above:Order Comment: Comment Every 6 hour while on tPAResult Comment: PERFORMED BY: [facility] [address]CecilioFrannie [place] [id number] PATHOLOGIST HOT HEAD MACHINE OPERATOR JOLIE MASON M.D.Performed By: #### PP, FIB-C, CBC ####[place] [id number] USAAutomated blood monocyte countOrdered By: Tom Schroeder on 26-86-6652Neyudvper (Bld) [#/Vol]0.5 10*3/uLNormal 0.0-0.8[facility] DaytonComment on above:Order Comment: Comment Every 6 hour while on tPAPerformed By: #### PP, FIB-C, CBC ####[place] [id number] USAAutomated eosinophil %Ordered By: Tom Schroeder on 98-34-7659Omhdnyypxop/100 WBC (Bld)0.8 %Normal. [facility] DaytonComment on above:Order Comment: Comment Every 6 hour while on tPAPerformed By: #### PP, FIB-C, CBC ####[place] [id number] USAAutomated eosinophil count Ordered By: Tom Schroeder on 45-38-2987Exefkhkaeik (Bld) [#/Vol]0.1 10*3/uL Normal0.0-0.45Kindred Hospital DaytonComment on above:Order Comment: Comment Every 6 hour while on tPAPerformed By: #### PP, FIB-C, CBC ####[place] [id number] USAAutomated monocyte % Ordered By: Tom Schroeder on 65-60-1069Wuqqtxoep/100 WBC (Bld)6.6 %Normal. [facility]red Hospital DaytonComment on above:Order Comment: Comment Every 6 hour while on tPAPerformed By: #### PP, FIB-C, CBC ####[place] [address] [place] [address] USAAutomated neutrophil %Ordered By: Tom Schroeder on 35-97-5678Nrhqjxccbuk/100 WBC (Bld)82.4 %Normal.[facility]red Hospital DaytonComment on above:Order Comment: Comment Every 6 hour while on tPAPerformed By: #### PP, FIB-C, CBC ####[address] [address] USABlood activated clotting time by coagulation assayOrdered By: Tom Schroeder on 82-19-1379ULC Coag (Bld)131 s 90-139Kindred Hospital DaytonComment on above:Reference Range: 90-139 (Non-heparinized)Coagulation Profileon 06-80-9871yVDV Coag (Bld) [Time]32.2 s Lvixki43.1-36.5The [facility] Physician GroupComment on above:Order Comment: Comment Every 6 hours while on tPAResult Comment: A hematocrit value greater than 55% may lead to inaccurate results in coagulation testing. Patients having hematocrit values >55% require a special collection tube for coagulation studies. Please contact the laboratory at [phone] for redraw instructions.Performed By: #### PP, FIB-C, CBC ####[address] [place] [address] USAComplete Blood Count Auto Diffon 45-69-0808Nttb Corpuscular HGB Conc34.2 g/dFIstcil48.5-35.6The [facility] Physician GroupComment on above:Order Comment: Comment Every 6 hour while on tPA Performed By: #### PP, FIB-C, CBC ####[address] [address] USANRBC%0.1 /100{WBC}Normal0-0.5The Jefferson HealthComment on above:Order Comment: Comment Every 6 hour while on tPAPerformed By: #### PP, FIB-C, CBC ####[address] [address] USAErythrocyte distribution width [Ratio] by Automated countOrdered By: Tom Schroeder on 94-98-4830Yeefdbsxbez distribution width (RBC) [Ratio]14.2 %Fdwzaw52.0-14.8[facility]red Hospital DaytonComment on above:Order Comment: Comment Every 6 hour while on tPAPerformed By: #### PP, FIB-C, CBC ####[address] [address] USAErythrocytes [#/volume] in Blood by Automated countOrdered By: Tom Schroeder on 96-41-2045OKR (Bld) [#/Vol]4.20 10*6/uLNormal3.90-5.60[facility]red Hospital DaytonComment on above:Order Comment: Comment Every 6 hour while on tPAPerformed By: #### PP, FIB-C, CBC ####[address] [address] USAFibrinogenon 61-28-5494Zxtaqzihzv719 mg/sZKje375-101Kyx Jefferson HealthComment on above:Order Comment: Comment Every 6 hours while on tPAResult Comment: A hematocrit value greater than 55% may lead to inaccurate results in coagulation testing. Patients having hematocrit values >55% require a special collection tube for coagulation studies. Please contact the laboratory at [phone] for redraw instructions. PERFORMED BY: [facility] [address] [place] [address] PATHOLOGIST HOT HEAD MACHINE OPERATOR JOLIE MASON M.D.Performed By: #### PP, FIB-C, CBC ####[address] [place] [address] USAFibrinogen [Mass/volume] in Platelet poor plasma by Coagulation assayOrdered By: Tom Schroeder on 09-16-2023 Fibrinogen Coag (PPP) [Mass/Vol]191 mg/iE502-844YydmlazkfKindred Hospital DaytonComment on above:A hematocrit value greater than 55% may lead to inaccurate results in coagulation testing. Patientshaving hematocrit values >55% require a special collection tube for coagulation studies. Please contact the laboratory at [phone] for redraw instructions.Hematocrit [Volume Fraction] of Blood by Automated countOrdered By: Tom Schroeder on 66-39-3813Grfojbfprz (Bld) [Volume fraction]41.9 %Rfzgdc03.8-50.0[facility] Comment on above:Order Comment: Comment Every 6 hour while on tPAPerformed By: #### PP, FIB-C, CBC ####[facility] [address] [place] [address] USAHemoglobin [Mass/volume] in BloodOrdered By: Tom Schroeder on 81-09-8235Mcvzjhbkrf (Bld) [Mass/Vol]14.3 g/mILkfsjf04.0-17.0[facility]red Hospital DaytonComment on above:Order Comment: Comment Every 6 hour while on tPA Performed By: #### PP, FIB-C, CBC ####[facility] [address] [place] [address] USAINR in Platelet poor plasma by Coagulation assay Ordered By: Tom Schroeder on 43-73-9443QHN Coag (PPP) [Relative time]1.2 {INR} NormalKindred Hospital DaytonComment on above:INR Therapeutic Range A) Pre- and [...] - 4.5Performed By: #### PP, FIB-C, CBC ####[address] [address] USALeukocytes [#/volume] corrected for nucleated erythrocytes in Blood by Automated counOrdered By: Tom Schroeder on 76-15-8560YJH corrected for nucl RBC Auto (Bld) [#/Vol]7.6 10*3/uL4.1-10.5FSt. Anthony's Hospital Leukocytes [#/volume] in Blood by Automated countOrdered By: Tom Schroeder on 54-59-3096YBF (Bld) [#/Vol]7.6 10*3/uLNormal4.1-10.5FSt. Anthony's HospitalComment on above:Order Comment: Comment Every 6 hour while on tPAPerformed By: #### PP, FIB-C, CBC ####[address] [address] USALymphocytes [#/volume] in Blood by Automated count Ordered By: Tom Schroeder on 34-05-5399Gtpuropfesu (Bld) [#/Vol]0.7 10*3/uLLow 1.00-4.8Kindred Hospital DaytonComment on above:Order Comment: Comment Every 6 hour while on tPAPerformed By: #### PP, FIB-C, CBC ####[address] [address] USALymphocytes/100 leukocytes in Blood by Automated countOrdered By: Tom Schroeder on 09-16-2023 Lymphocytes/100 WBC (Bld)9.5 %Normal.Kindred Hospital DaytonComment on above:Order Comment: Comment Every 6 hour while on tPAPerformed By: #### PP, FIB-C, CBC ####[address] [address] USAMCH [Entitic mass] by Automated countOrdered By: Tom Schroeder on 07-86-7802KAC (RBC) [Entitic mass]34.1 acRqgrgt95.5-35.2FSt. Anthony's HospitalComment on above:Order Comment: Comment Every 6 hour while on tPA Performed By: #### PP, FIB-C, CBC ####[address] [place] [address] [facility] Auto (RBC) [Mass/Vol]Ordered By: Tom Schroeder on 98-70-0818XTIE (RBC) [Mass/Vol]34.2 g/dL32.5-35.6FSt. Anthony's HospitalMCV [Entitic volume] by Automated countOrdered By: Tom Schroeder on 25-79-9355LOS (RBC) [Entitic vol]99.7 aQQlqbxh75.5-101Kindred Hospital DaytonComment on above:Order Comment: Comment Every 6 hour while on tPA Performed By: #### PP, FIB-C, CBC ####[address] [address] USANeutrophils [#/volume] in Blood by Automated count Ordered By: Tom Schroeder on 06-88-8531Lcnbcmqoieq (Bld) [#/Vol]6.3 10*3/uL Normal1.8-7.7FSt. Anthony's HospitalComment on above:Order Comment: Comment Every 6 hour while on tPAPerformed By: #### PP, FIB-C, CBC ####[address] [address] USANucleated erythrocytes [Presence] in Blood by Automated countOrdered By: Tom Schroeder on 22-72-1676Lfgqgadeq RBC Auto Ql (Bld)0.1 /100{WBC}0-0.5FSt. Anthony's HospitalPlatelet mean volume [Entitic volume] in Blood by Automated count Ordered By: Tom Schroeder on 62-72-9644Iwvmbxys mean volume (Bld) [Entitic vol]7.7 fLNormal6.6-10.1FSt. Anthony's HospitalComment on above:Order Comment: Comment Every 6 hour while on tPAPerformed By: #### PP, FIB-C, CBC ####[address] [address] [place] Platelets [#/volume] in Blood by Automated countOrdered By: Tom Schroeder on 97-14-9166Ysbxfxpug (Bld) [#/Vol]121 10*3/dNZyd039-718LmfvjivyaKindred Hospital DaytonComment on above:Order Comment: Comment Every 6 hour while on tPA Performed By: #### PP, FIB-C, CBC ####[address] [address] USAProthrombin time (PT)Ordered By: Tom Schroeder on 06-24-4851WD Coag (PPP) [Time]13.7 sHigh9.0-12.9[facility]red Hospital DaytonComment on above:A hematocrit value greater than 55% may lead to inaccurate results in coagulation testing. Patientshaving hematocrit values >55% require a special collection tube for coagulation studies. Please contact the laboratory at [phone] for redraw instructions.Order Comment: Comment Every 6 hours while on tPAResult Comment: A hematocrit value greater than 55% may lead to inaccurate results in coagulation testing. Patients having hematocrit values >55% require a special collection tube for coagulation studies. Please contact the laboratory at [phone] for redraw instructions.Performed By: #### PP, FIB-C, CBC ####[address] [address] USABasic Metabolic Panelon 09-15-2023 Creatinine Clr Calc Fexzyruq72.43NormalThe [facility] Physician GroupComment on above:Result Comment: PERFORMED BY: [facility] [address] [place] [address] PATHOLOGIST HOT HEAD MACHINE OPERATOR JOLIE MASON M.D.Performed By: #### BMP ####[address] [address] USAGFR/1.73 sq M.predicted MDRD (S/P/Bld) [Vol rate/Area]mL/min/{1.73_m2}NormalThe [facility] Physician [facility] MadisonComment on above: Performed By: #### BMP ####[address] [address] USACalcium [Mass/volume] in Serum or PlasmaOrdered By: Niko Del Angel on 88-30-1857Ofrfrex [Mass/Vol]8.3 mg/dLLow8.6-10.3FSt. Anthony's HospitalComment on above:Performed By: #### BMP ####[facility] [place] [address] USACarbon dioxide, total [Moles/volume] in Serum or PlasmaOrdered By: Niko Del Angel on 76-31-7012KV5 [Moles/Vol]29.9 mmol/ALvjvum05.0-31.0[facility]red Hospital DaytonComment on above:Performed By: #### BMP ####[facility] [place] [address] USAChloride [Moles/volume] in Serum or PlasmaOrdered By: Niko Del Angel on 52-48-2349Pwpxbinb [Moles/Vol]106 mmol/UStuzct42-371 [facility] DaytonComment on above:Performed By: #### BMP ####[facility] [place] [address] [facility] Coagulation Profileon 34-19-8106kJOA Coag (Bld) [Time]23.4 sLow25.1-36.5The [facility] Physician GroupComment on above:Order Comment: Comment Every 6 hours while on tPAResult Comment: A hematocrit value greater than 55% may lead to inaccurate results in coagulation testing. Patients having hematocrit values >55% require a special collection tube for coagulation studies. Please contact the laboratory at [phone] for redraw instructions.Performed By: #### CBC, FIB-C, PP #### [facility] [address] [place] [address] USAINR Coag (PPP) [Relative time]1.1 {INR}NormalThe [facility] Physician GroupComment on above:Order Comment: Comment Every [...] 4.5Performed By: #### CBC, FIB-C, PP #### [facility] [address] [place] [address] USAPT Coag (PPP) [Time]12.9 sNormal9.0-12.9The [facility] Physician GroupComment on above:Order Comment: Comment Every 6 hours while on tPAResult Comment: A hematocrit value greater than 55% may lead to inaccurate results in coagulation testing. Patients having hematocrit values >55% require a special collection tube for coagulation studies. Please contact the laboratory at [phone] for redraw instructions.Performed By: #### CBC, FIB-C, PP #### [address] [address] USAaPTT Coag (Bld) [Time]126.7 sOff scale high25.1-36.5The [facility] Physician GroupComment on above:Order Comment: Comment Every 6 hours while on tPAResult Comment: A hematocrit value greater than 55% may lead to inaccurate results in coagulation testing. Patients having hematocrit values >55% require a special collection tube for coagulation studies. Please contact the laboratory at [phone] for redraw instructions.Performed By: #### CBC, PP, FIB-C #### [address] [address] USAINR Coag (PPP) [Relative time]1.2 {INR}NormalThe [facility] Physician GroupComment on above:Order Comment: Comment Every [...] By: #### CBC, PP, FIB-C #### [address] [address] USAPT Coag (PPP) [Time]13.3 sHigh9.0-12.9The [facility] Physician GroupComment on above:Order Comment: Comment Every 6 hours while on tPAResult Comment: Critical value result called at 1601 on 09/15/23 A hematocrit value greater than 55% may lead to inaccurate results in coagulation testing. Patients having hematocrit values >55% require a special collection tube for coagulation studies. Please contact the laboratory at [phone] for redraw instructions.Performed By: #### CBC, PP, FIB-C #### [facility] [address] [place] [address] USAaPTT Coag (Bld) [Time]32.6 iIbwrxs35.1-36.5The [facility] Physician GroupComment on above:Order Comment: Comment Every 6 hours while on tPAResult Comment: A hematocrit value greater than 55% may lead to inaccurate results in coagulation testing. Patients having hematocrit values >55% require a special collection tube for coagulation studies. Please contact the laboratory at [phone] for redraw instructions.Performed By: #### CBC, FIB-C, PP #### [facility] [address] [place] [address] USAINR Coag (PPP) [Relative time]1.1 {INR}NormalThe [facility] Physician GroupComment on above:Order Comment: Comment Every [...] 4.5Performed By: #### CBC, FIB-C, PP #### [facility] [address] [place] [address] USAPT Coag (PPP) [Time]13.1 sHigh9.0-12.9The [facility] Physician GroupComment on above:Order Comment: Comment Every 6 hours while on tPAResult Comment: A hematocrit value greater than 55% may lead to inaccurate results in coagulation testing. Patients having hematocrit values >55% require a special collection tube for coagulation studies. Please contact the laboratory at [phone] for redraw instructions.Performed By: #### CBC, FIB-C, PP #### [facility] [address] [place] [address] USAaPTT Coag (Bld) [Time]35.4 cIrdnxb11.1-36.5The [facility] Physician GroupComment on above:Order Comment: Comment Every 6 hours while on tPAResult Comment: A hematocrit value greater than 55% may lead to inaccurate results in coagulation testing. Patients having hematocrit values >55% require a special collection tube for coagulation studies. Please contact the laboratory at [phone] for redraw instructions.Performed By: #### CBC, FIB-C, PP #### [facility] [address] [place] [address] USAINR Coag (PPP) [Relative time]1.1 {INR}NormalThe [facility] Physician GroupComment on above:Order Comment: Comment Every [...] 4.5Performed By: #### CBC, FIB-C, PP #### [facility] [address] [place] [address] USAPT Coag (PPP) [Time]12.3 sNormal9.0-12.9The [facility] Physician GroupComment on above:Order Comment: Comment Every 6 hours while on tPAResult Comment: A hematocrit value greater than 55% may lead to inaccurate results in coagulation testing. Patients having hematocrit values >55% require a special collection tube for coagulation studies. Please contact the laboratory at [phone] for redraw instructions.Performed By: #### CBC, FIB-C, PP #### [facility] [address] [place] [address] USAComplete Blood Count Auto Diffon 81-67-1971Rlyjwfmei (Bld) [#/Vol]0.0 10*3/uLNormal0.0-0.2The [facility] Physician GroupComment on above: Order Comment: Comment Every 6 hours while on tPAResult Comment: PERFORMED BY: [place] [address] PATHOLOGIST HOT HEAD MACHINE OPERATOR JOLIE MASON M.D.Performed By: #### CBC, FIB-C, PP #### [place] [address] USABasophils/100 WBC (Bld)0.4 %Normal.The [facility] Physician GroupComment on above:Order Comment: Comment Every 6 hours while on tPA Performed By: #### CBC, FIB-C, PP #### [place] [address] USAEosinophils (Bld) [#/Vol]0.0 10*3/uLNormal0.0-0.45The [facility] Physician GroupComment on above:Order Comment: Comment Every 6 hours while on tPAPerformed By: #### CBC, FIB-C, PP #### [place] [address] USAEosinophils/100 WBC (Bld)0.5 %Normal.The [facility] Physician GroupComment on above:Order Comment: Comment Every 6 hours while on tPAPerformed By: #### CBC, FIB-C, PP #### [place] [address] USAErythrocyte distribution width (RBC) [Ratio]13.8 %Normal 12.0-14.8The [facility] Physician GroupComment on above:Order Comment: Comment Every 6 hours while on tPAPerformed By: #### CBC, FIB-C, PP #### [place] [address] USAHematocrit (Bld) [Volume fraction]43.3 %Jdussg17.8-50.0The [facility] Physician GroupComment on above:Order Comment: Comment Every 6 hours while on tPAPerformed By: #### CBC, FIB-C, PP #### [facility] [address] [place] [id number] USAHemoglobin (Bld) [Mass/Vol]14.7 g/oXJshspt84.0-17.0The [facility] Physician GroupComment on above:Order Comment: Comment Every 6 hours while on tPAPerformed By: #### CBC, FIB-C, PP #### [facility] [address] [place] [address] USALymphocytes (Bld) [#/Vol]0.7 10*3/uLLow1.00-4.8The [facility] Physician GroupComment on above:Order Comment: Comment Every 6 hours while on tPAPerformed By: #### CBC, FIB-C, PP #### [place] [address] USALymphocytes/100 WBC (Bld)9.1 %Normal.The [facility] Physician GroupComment on above:Order Comment: Comment Every 6 hours while on tPAPerformed By: #### CBC, FIB-C, PP #### [place] [address] USAMCH (RBC) [Entitic mass]34.1 azPfdgmm51.5-35.2The [facility] Physician GroupComment on above:Order Comment: Comment Every 6 hours while on tPAPerformed By: #### CBC, FIB-C, PP #### [place] [id number] USAV (RBC) [Entitic vol]100.2 xCOpbnbt63.5-101The [facility] Physician GroupComment on above:Order Comment: Comment Every 6 hours while on tPAPerformed By: #### CBC, FIB-C, PP #### [place] [address] USAMean Corpuscular HGB Conc34.1 g/nBZcyhqe34.5-35.6The [facility] Physician GroupComment on above:Order Comment: Comment Every 6 hours while on tPAPerformed By: #### CBC, FIB-C, PP #### [place] [address] USAMonocytes (Bld) [#/Vol]0.5 10*3/uLNormal0.0-0.8The [facility] Physician GroupComment on above:Order Comment: Comment Every 6 hours while on tPAPerformed By: #### CBC, FIB-C, PP #### [facility] [address] [place] [address] USAMonocytes/100 WBC (Bld)6.0 %Normal.The [facility] Physician GroupComment on above:Order Comment: Comment Every 6 hours while on tPA Performed By: #### CBC, FIB-C, PP #### [place] [address] USANeutrophils (Bld) [#/Vol]6.5 10*3/uLNormal1.8-7.7The [facility] Physician GroupComment on above:Order Comment: Comment Every 6 hours while on tPAPerformed By: #### CBC, FIB-C, PP #### [place] [address] USANeutrophils/100 WBC (Bld)84.0 %Normal.The [facility] Physician GroupComment on above:Order Comment: Comment Every 6 hours while on tPAPerformed By: #### CBC, FIB-C, PP #### [place] [address] USANRBC%0.0 /100{WBC}Normal0-0.5The [facility] Comment on above:Order Comment: Comment Every 6 hours while on tPAPerformed By: #### CBC, FIB-C, PP #### [place] [address] USAPlatelet mean volume (Bld) [Entitic vol]8.0 fLNormal 6.6-10.1The [facility] Physician GroupComment on above:Order Comment: Comment Every 6 hours while on tPAPerformed By: #### CBC, FIB-C, PP #### [facility] [address] [place] [address] USAPlatelets (Bld) [#/Vol]123 10*3/bRWnc208-129Fwq [facility] Physician GroupComment on above:Order Comment: Comment Every 6 hours while on tPAPerformed By: #### CBC, FIB-C, PP #### [place] [address] USARBC (Bld) [#/Vol]4.32 10*6/uLNormal3.90-5.60The [facility] Physician GroupComment on above:Order Comment: Comment Every 6 hours while on tPAPerformed By: #### CBC, FIB-C, PP #### [place] [address] USAWBC (Bld) [#/Vol]7.8 10*3/uLNormal4.1-10.5The [facility] Physician GroupComment on above:Order Comment: Comment Every 6 hours while on tPAPerformed By: #### CBC, FIB-C, PP #### [place] [address] USABasophils (Bld) [#/Vol]0.0 10*3/uLNormal0.0-0.2The [facility] Physician GroupComment on above:Order Comment: Comment Every 6 hour while on tPAResult Comment: PERFORMED BY: [place] [address] PATHOLOGIST HOT HEAD MACHINE OPERATOR JOLIE MASON M.D.Performed By: #### CBC, PP, FIB-C #### [place] [address] USABasophils/100 WBC (Bld)0.4 %Normal.The [facility] Physician GroupComment on above:Order Comment: Comment Every 6 hour while on tPAPerformed By: #### CBC, PP, FIB-C #### [place] [address] USAEosinophils (Bld) [#/Vol]0.0 10*3/uLNormal0.0-0.45The [facility] Physician GroupComment on above:Order Comment: Comment Every 6 hour while on tPAPerformed By: #### CBC, PP, FIB-C #### [address] [place] [address] USAEosinophils/100 WBC (Bld)0.4 %Normal.The [facility] Physician GroupComment on above:Order Comment: Comment Every 6 hour while on tPA Performed By: #### CBC, PP, FIB-C #### [place] [address] USAErythrocyte distribution width (RBC) [Ratio]14.1 %Normal 12.0-14.8The [facility] Physician GroupComment on above:Order Comment: Comment Every 6 hour while on tPAPerformed By: #### CBC, PP, FIB-C #### [place] [address] USAHematocrit (Bld) [Volume fraction]43.4 %Qcbijg09.8-50.0The [facility] Physician GroupComment on above:Order Comment: Comment Every 6 hour while on tPAPerformed By: #### CBC, PP, FIB-C #### [place] [address] USAHemoglobin (Bld) [Mass/Vol]14.8 g/iNMuggmv83.0-17.0The [facility] Physician GroupComment on above:Order Comment: Comment Every 6 hour while on tPAPerformed By: #### CBC, PP, FIB-C #### [place] [address] USALymphocytes (Bld) [#/Vol]0.7 10*3/uLLow1.00-4.8The [facility] Physician GroupComment on above:Order Comment: Comment Every 6 hour while on tPAPerformed By: #### CBC, PP, FIB-C #### [place] [id number] USALymphocytes/100 WBC (Bld)7.7 %Normal.The [facility] Physician GroupComment on above:Order Comment: Comment Every 6 hour while on tPA Performed By: #### CBC, PP, FIB-C #### [place] [address] USAMCH (RBC) [Entitic mass]33.9 tqWduepm14.5-35.2The [facility] Physician GroupComment on above:Order Comment: Comment Every 6 hour while on tPAPerformed By: #### CBC, PP, FIB-C #### [place] [address] USAMCV (RBC) [Entitic vol]99.7 eRVtqnvx38.5-101The [facility] Physician GroupComment on above:Order Comment: Comment Every 6 hour while on tPA Performed By: #### CBC, PP, FIB-C #### [place] [address] USAMean Corpuscular HGB Conc34.0 g/cXIouteb00.5-35.6The [facility] Physician GroupComment on above:Order Comment: Comment Every 6 hour while on tPAPerformed By: #### CBC, PP, FIB-C #### [place] [address] USAMonocytes (Bld) [#/Vol]0.5 10*3/uLNormal0.0-0.8The [facility] Physician GroupComment on above:Order Comment: Comment Every 6 hour while on tPAPerformed By: #### CBC, PP, FIB-C #### [place] [address] USAMonocytes/100 WBC (Bld)5.8 %Normal.The [facility] Physician GroupComment on above:Order Comment: Comment Every 6 hour while on tPAPerformed By: #### CBC, PP, FIB-C #### [place] [address] USANeutrophils (Bld) [#/Vol]7.3 10*3/uLNormal1.8-7.7The [facility] Physician GroupComment on above:Order Comment: Comment Every 6 hour while on tPAPerformed By: #### CBC, PP, FIB-C #### [place] [address] USANeutrophils/100 WBC (Bld)85.7 %Normal.The [facility] Physician GroupComment on above:Order Comment: Comment Every 6 hour while on tPA Performed By: #### CBC, PP, FIB-C #### [facility] [address] [place] [address] USANRBC%0.1 /100{WBC}Normal0-0.5The [facility] Comment on above:Order Comment: Comment Every 6 hour while on tPAPerformed By: #### CBC, PP, FIB-C #### [place] [address] USAPlatelet mean volume (Bld) [Entitic vol]7.4 fLNormal 6.6-10.1The [facility] Physician GroupComment on above:Order Comment: Comment Every 6 hour while on tPAPerformed By: #### CBC, PP, FIB-C #### [place] [address] USAPlatelets (Bld) [#/Vol]133 10*3/xBEyg544-824Ieh [facility] Physician GroupComment on above:Order Comment: Comment Every 6 hour while on tPA Performed By: #### CBC, PP, FIB-C #### [place] [address] USARBC (Bld) [#/Vol]4.36 10*6/uLNormal3.90-5.60The [facility] Physician GroupComment on above:Order Comment: Comment Every 6 hour while on tPA Performed By: #### CBC, PP, FIB-C #### [place] [address] USAWBC (Bld) [#/Vol]8.5 10*3/uLNormal4.1-10.5The [facility] Physician GroupComment on above:Order Comment: Comment Every 6 hour while on tPA Performed By: #### CBC, PP, FIB-C #### [place] [address] USABasophils (Bld) [#/Vol]0.0 10*3/uLNormal0.0-0.2The [facility] Physician GroupComment on above:Order Comment: Comment Every 6 hours while on tPAResult Comment: PERFORMED BY: [address] [place] [address] PATHOLOGIST HOT HEAD MACHINE OPERATOR JOLIE MASON M.D.Performed By: #### CBC, FIB-C, PP #### [place] [address] USABasophils/100 WBC (Bld)0.2 %Normal.The [facility] Physician GroupComment on above:Order Comment: Comment Every 6 hours while on tPA Performed By: #### CBC, FIB-C, PP #### [place] [address] USAEosinophils (Bld) [#/Vol]0.1 10*3/uLNormal0.0-0.45The [facility] Physician GroupComment on above:Order Comment: Comment Every 6 hours while on tPAPerformed By: #### CBC, FIB-C, PP #### [place] [address] USAEosinophils/100 WBC (Bld)0.9 %Normal.The [facility] Physician GroupComment on above:Order Comment: Comment Every 6 hours while on tPAPerformed By: #### CBC, FIB-C, PP #### [place] [address] USAErythrocyte distribution width (RBC) [Ratio]14.0 %Normal 12.0-14.8The [facility] Physician GroupComment on above:Order Comment: Comment Every 6 hours while on tPAPerformed By: #### CBC, FIB-C, PP #### [place] [address] USAHematocrit (Bld) [Volume fraction]45.3 %Fytrba84.8-50.0The [facility] Physician GroupComment on above:Order Comment: Comment Every 6 hours while on tPAPerformed By: #### CBC, FIB-C, PP #### [place] [address] USAHemoglobin (Bld) [Mass/Vol]15.0 g/aDTelxap88.0-17.0The [facility] Physician GroupComment on above:Order Comment: Comment Every 6 hours while on tPAPerformed By: #### CBC, FIB-C, PP #### [facility] [address] [place] [address] USALymphocytes (Bld) [#/Vol]0.9 10*3/uLLow1.00-4.8The [facility] Physician GroupComment on above:Order Comment: Comment Every 6 hours while on tPAPerformed By: #### CBC, FIB-C, PP #### [facility] [address] [place] [id number] USALymphocytes/100 WBC (Bld)12.0 %Normal.The [facility] Physician GroupComment on above:Order Comment: Comment Every 6 hours while on tPAPerformed By: #### CBC, FIB-C, PP #### [place] [address] USAMCH (RBC) [Entitic mass]33.1 qyRkymha67.5-35.2The [facility] Physician GroupComment on above:Order Comment: Comment Every 6 hours while on tPAPerformed By: #### CBC, FIB-C, PP #### [place] [address] USAMCV (RBC) [Entitic vol]100.2 tRGyzasd27.5-101The [facility] Physician GroupComment on above:Order Comment: Comment Every 6 hours while on tPAPerformed By: #### CBC, FIB-C, PP #### [place] [address] USAMean Corpuscular HGB Conc33.1 g/wSSwiwdy76.5-35.6The [facility] Physician GroupComment on above:Order Comment: Comment Every 6 hours while on tPAPerformed By: #### CBC, FIB-C, PP #### [place] [address] USAMonocytes (Bld) [#/Vol]0.5 10*3/uLNormal0.0-0.8The [facility] Physician GroupComment on above:Order Comment: Comment Every 6 hours while on tPAPerformed By: #### CBC, FIB-C, PP #### [facility] [address] [place] [id number] USAMonocytes/100 WBC (Bld)7.2 %Normal.The [facility] Physician GroupComment on above:Order Comment: Comment Every 6 hours while on tPA Performed By: #### CBC, FIB-C, PP #### [place] [address] USANeutrophils (Bld) [#/Vol]6.0 10*3/uLNormal1.8-7.7The [facility] Physician GroupComment on above:Order Comment: Comment Every 6 hours while on tPAPerformed By: #### CBC, FIB-C, PP #### [place] [address] USANeutrophils/100 WBC (Bld)79.7 %Normal.The [facility] Physician GroupComment on above:Order Comment: Comment Every 6 hours while on tPAPerformed By: #### CBC, FIB-C, PP #### [place] [address] USANRBC%0.1 /100{WBC}Normal0-0.5The [facility] Comment on above:Order Comment: Comment Every 6 hours while on tPAPerformed By: #### CBC, FIB-C, PP #### [place] [address] USAPlatelet mean volume (Bld) [Entitic vol]7.9 fLNormal 6.6-10.1The [facility] Physician GroupComment on above:Order Comment: Comment Every 6 hours while on tPAPerformed By: #### CBC, FIB-C, PP #### [facility] [address] [place] [address] USAPlatelets (Bld) [#/Vol]138 10*3/bWJts697-860Rty [facility] Physician GroupComment on above:Order Comment: Comment Every 6 hours while on tPAPerformed By: #### CBC, FIB-C, PP #### [place] [address] USARBC (Bld) [#/Vol]4.52 10*6/uLNormal3.90-5.60The [facility] Physician GroupComment on above:Order Comment: Comment Every 6 hours while on tPAPerformed By: #### CBC, FIB-C, PP #### [place] [address] USAWBC (Bld) [#/Vol]7.5 10*3/uLNormal4.1-10.5The [facility] Physician GroupComment on above:Order Comment: Comment Every 6 hours while on tPAPerformed By: #### CBC, FIB-C, PP #### [place] [address] USABasophils (Bld) [#/Vol]0.0 10*3/uLNormal0.0-0.2The [facility] Physician GroupComment on above:Order Comment: Comment Every 6 hour while on tPAResult Comment: PERFORMED BY: [place] [address] PATHOLOGIST HOT HEAD MACHINE OPERATOR JOLIE MASON M.D.Performed By: #### CBC, FIB-C, PP #### [place] [address] USABasophils/100 WBC (Bld)0.3 %Normal.The [facility] Physician GroupComment on above:Order Comment: Comment Every 6 hour while on tPAPerformed By: #### CBC, FIB-C, PP #### [place] [address] USAEosinophils (Bld) [#/Vol]0.2 10*3/uLNormal0.0-0.45The [facility] Physician GroupComment on above:Order Comment: Comment Every 6 hour while on tPAPerformed By: #### CBC, FIB-C, PP #### [place] [id number] USAEosinophils/100 WBC (Bld)3.7 %Normal.The [facility] Physician GroupComment on above:Order Comment: Comment Every 6 hour while on tPA Performed By: #### CBC, FIB-C, PP #### [place] [address] USAErythrocyte distribution width (RBC) [Ratio]14.0 %Normal 12.0-14.8The [facility] Physician GroupComment on above:Order Comment: Comment Every 6 hour while on tPAPerformed By: #### CBC, FIB-C, PP #### [place] [address] USAHematocrit (Bld) [Volume fraction]45.4 %Nftdki36.8-50.0The [facility] Physician GroupComment on above:Order Comment: Comment Every 6 hour while on tPAPerformed By: #### CBC, FIB-C, PP #### [place] [address] USAHemoglobin (Bld) [Mass/Vol]15.4 g/kZGowdfy61.0-17.0The [facility] Physician GroupComment on above:Order Comment: Comment Every 6 hour while on tPAPerformed By: #### CBC, FIB-C, PP #### [place] [address] USALymphocytes (Bld) [#/Vol]1.4 10*3/uLNormal1.00-4.8The [facility] Physician GroupComment on above:Order Comment: Comment Every 6 hour while on tPAPerformed By: #### CBC, FIB-C, PP #### [place] [address] USALymphocytes/100 WBC (Bld)22.9 %Normal.The [facility] Physician GroupComment on above:Order Comment: Comment Every 6 hour while on tPA Performed By: #### CBC, FIB-C, PP #### [place] [id number] USAMCH (RBC) [Entitic mass]33.9 vcCxjijj71.5-35.2The [facility] Physician GroupComment on above:Order Comment: Comment Every 6 hour while on tPAPerformed By: #### CBC, FIB-C, PP #### [place] [address] USAMCV (RBC) [Entitic vol]99.8 bKUrnpac70.5-101The [facility] Physician GroupComment on above:Order Comment: Comment Every 6 hour while on tPA Performed By: #### CBC, FIB-C, PP #### [facility] [address] [place] [id number] USAMean Corpuscular HGB Conc34.0 g/oLPrvrzt70.5-35.6The [facility] Physician GroupComment on above:Order Comment: Comment Every 6 hour while on tPAPerformed By: #### CBC, FIB-C, PP #### [place] [address] USAMonocytes (Bld) [#/Vol]0.5 10*3/uLNormal0.0-0.8The [facility] Physician GroupComment on above:Order Comment: Comment Every 6 hour while on tPAPerformed By: #### CBC, FIB-C, PP #### [place] [address] USAMonocytes/100 WBC (Bld)8.6 %Normal.The [facility] Physician GroupComment on above:Order Comment: Comment Every 6 hour while on tPAPerformed By: #### CBC, FIB-C, PP #### [place] [address] USANeutrophils (Bld) [#/Vol]3.9 10*3/uLNormal1.8-7.7The [facility] Physician GroupComment on above:Order Comment: Comment Every 6 hour while on tPAPerformed By: #### CBC, FIB-C, PP #### [place] [id number] USANeutrophils/100 WBC (Bld)64.5 %Normal.The [facility] Physician GroupComment on above:Order Comment: Comment Every 6 hour while on tPA Performed By: #### CBC, FIB-C, PP #### [place] [address] USANRBC%0.1 /100{WBC}Normal0-0.5The [facility] Comment on above:Order Comment: Comment Every 6 hour while on tPAPerformed By: #### CBC, FIB-C, PP #### [facility] [address] [place] [address] USAPlatelet mean volume (Bld) [Entitic vol]7.7 fLNormal 6.6-10.1The [facility] Physician GroupComment on above:Order Comment: Comment Every 6 hour while on tPAPerformed By: #### CBC, FIB-C, PP #### [facility] [address] [place] [address] USAPlatelets (Bld) [#/Vol]145 10*3/zSBtc857-168Lvl [facility] Physician GroupComment on above:Order Comment: Comment Every 6 hour while on tPA Performed By: #### CBC, FIB-C, PP #### [facility] [address] [place] [address] USARBC (Bld) [#/Vol]4.55 10*6/uLNormal3.90-5.60The [facility] Physician GroupComment on above:Order Comment: Comment Every 6 hour while on tPA Performed By: #### CBC, FIB-C, PP #### [facility] [address] [place] [address] USAWBC (Bld) [#/Vol]6.0 10*3/uLNormal4.1-10.5The [facility] Physician GroupComment on above:Order Comment: Comment Every 6 hour while on tPA Performed By: #### CBC, FIB-C, PP #### [facility] [address] [place] [address] USACreatinine [Mass/volume] in Serum or PlasmaOrdered By: Niko Del Angel on 10-53-8338Skbaqfsrxc [Mass/Vol]0.69 mg/dLLow0.70-1.30 [facility] DaytonComment on above:Performed By: #### BMP ####[facility] [address] [place] [id number] USAECG 12 lead ECGon [id number] 12 lead ECGMCCULLOUGH[facility] [place] [address] [place] [address] Electrocardiograph Report Signed Patient: Pawan Bustillo MR#: [id number] 3 : 1955 Acct:[id number] Age/Sex: 67 / M ADM Date: 09/14/23 Loc: Room: [address] [place] [address] Type: ADM IN Attending Dr: Tom Schroeder [...] previous ECGs available Confirmed by Leonora York ([id number]) on 09/16/2023 6:19:14 PM Referred By: Electronically Signed By:Leonora York Transcribed By: MUS Signed By Leonora York MD 09/16/23 1819[facility] Physician GroupFibrinogenon 09-15-2023 Ovqnocfnqs970 mg/dMPsr321-527Ely [facility]ician [facility] MadisonComment on above:Order Comment: Comment Every 6 hours while on tPAResult Comment: A hematocrit value greater than 55% may lead to inaccurate results in coagulation testing. Patients having hematocrit values >55% require a special collection tube for coagulation studies. Please contact the laboratory at [phone] for redraw instructions. PERFORMED BY: [place] [address] PATHOLOGIST HOT HEAD MACHINE OPERATOR JOLIE MASON M.D.Performed By: #### CBC, FIB-C, PP #### [place] [address] GCMPffihjmupg997 mg/aRNzb776-724Awk [facility] Physician [facility] Comment on above:Order Comment: Comment Every 6 hours while on tPAResult Comment: A hematocrit value greater than 55% may lead to inaccurate results in coagulation testing. Patients having hematocrit values >55% require a special collection tube for coagulation studies. Please contact the laboratory at [phone] for redraw instructions. PERFORMED BY: [address] [address] PATHOLOGIST HOT HEAD MACHINE OPERATOR JOLIE MASON M.D.Performed By: #### CBC, PP, FIB-C #### [facility] [address] [place] [address] SQETuyugpclws698 mg/yBRbu576-841Iow [facility] Comment on above:Order Comment: Comment Every 6 hours while on tPAResult Comment: A hematocrit value greater than 55% may lead to inaccurate results in coagulation testing. Patients having hematocrit values >55% require a special collection tube for coagulation studies. Please contact the laboratory at [phone] for redraw instructions. PERFORMED BY: [address] [address] PATHOLOGIST HOT HEAD MACHINE OPERATOR JOLIE MASON M.D.Performed By: #### CBC, FIB-C, PP #### [address] [address] JTBHzgzocizqj770 mg/rZAmu662-714Vmq [facility] Comment on above:Order Comment: Comment Every 6 hours while on tPAResult Comment: A hematocrit value greater than 55% may lead to inaccurate results in coagulation testing. Patients having hematocrit values >55% require a special collection tube for coagulation studies. Please contact the laboratory at [phone] for redraw instructions. PERFORMED BY: [place] [id number] PATHOLOGIST HOT HEAD MACHINE OPERATOR JOLIE MASON M.D.Performed By: #### CBC, FIB-C, PP #### [facility] [address] [place] [address] USAGlucose [Mass/volume] in Serum or PlasmaOrdered By: Niko Del Angel on 36-93-5279Lmqvgac [Mass/Vol]95 mg/jPNrswgc55-581FnemhdqmiKindred Hospital DaytonComment on above:ADA recommended reference rangeRandom Glucose Reference [...] ADA recommended reference rangePerformed By: #### BMP ####[address] [address] USANo Panel InformationOrdered By: Niko Del Angel on 36-38-9839Zjcerviyo GFR (CKD-EPI)> 60.0 mL/MinKindred Hospital DaytonPharmacy Creatinine Clearance (Chem95.43[facility] DaytonPotassium [Moles/volume] in Serum or PlasmaOrdered By: Niko Del Angel on 06-38-8046Akvmrsstp [Moles/Vol]4.7 mmol/LNormal3.5-5.1 [facility] DaytonComment on above:Performed By: #### BMP ####[address] [address] USASerum or plasma anion gap determinationOrdered By: Niko Del Angel on 09-15-2023 Anion gap [Moles/Vol]5.8 mmol/LLow6.0-15.0[facility] Comment on above:Performed By: #### BMP ####[address] [address] USASodium [Moles/volume] in Serum or Plasma Ordered By: Niko Del Angel on 76-84-1993Rtdzil [Moles/Vol]137 mmol/LNormal 136-145[facility] DaytonComment on above:Performed By: #### BMP ####[address] [address] USAUrea nitrogen [Mass/volume] in Serum or PlasmaOrdered By: Niko Del Angel on 71-63-6517Kmll nitrogen [Mass/Vol]11 mg/dLNormal7-25[facility] DaytonComment on above:Performed By: #### BMP ####[address] [address] USAABO/Rh Retypeon 59-87-8329LSW/RH Recheck ResultPositiveNormalThe [facility] Physician GroupComment on above:Result Comment: PERFORMED BY: [place] [id number] PATHOLOGIST HOT HEAD MACHINE OPERATOR JOLIE MASON M.D.Blood Urea Nitrogenon 79-33-7642Pzis nitrogen [Mass/Vol]16 mg/dL Normal7-25The [facility] Physician GroupComment on above:Performed By: #### CREAT, BUN #### [place] [id number] USACoagulation Profileon 87-24-1517bNTK Coag (Bld) [Time]32.2 uSqwong91.1-36.5The [facility] Physician GroupComment on above:Order Comment: Comment Every 6 hours while on tPAResult Comment: A hematocrit value greater than 55% may lead to inaccurate results in coagulation testing. Patients having hematocrit values >55% require a special collection tube for coagulation studies. Please contact the laboratory at [phone] for redraw instructions.Performed By: #### CBC, FIB-C, PP #### [address] [address] USAINR Coag (PPP) [Relative time]1.0 {INR}NormalThe [facility] Physician GroupComment on above:Order Comment: Comment Every [...] By: #### CBC, FIB-C, PP #### [address] [address] USAPT Coag (PPP) [Time]11.5 sNormal9.0-12.9The [facility] Physician GroupComment on above:Order Comment: Comment Every 6 hours while on tPAResult Comment: A hematocrit value greater than 55% may lead to inaccurate results in coagulation testing. Patients having hematocrit values >55% require a special collection tube for coagulation studies. Please contact the laboratory at [phone] for redraw instructions.Performed By: #### CBC, FIB-C, PP #### [facility] [address] [place] [address] USAaPTT Coag (Bld) [Time]30.0 wQtfnwg27.1-36.5The [facility] Physician GroupComment on above:Order Comment: Comment Every 6 hours while on tPAResult Comment: A hematocrit value greater than 55% may lead to inaccurate results in coagulation testing. Patients having hematocrit values >55% require a special collection tube for coagulation studies. Please contact the laboratory at [phone] for redraw instructions.Performed By: #### CBC, FIB-C, PP #### [facility] [address] [place] [address] USAINR Coag (PPP) [Relative time]1.0 {INR}NormalThe [facility] Physician GroupComment on above:Order Comment: Comment Every [...] 4.5Performed By: #### CBC, FIB-C, PP #### [facility] [address] [place] [address] USAPT Coag (PPP) [Time]12.1 sNormal9.0-12.9The [facility] Physician GroupComment on above:Order Comment: Comment Every 6 hours while on tPAResult Comment: A hematocrit value greater than 55% may lead to inaccurate results in coagulation testing. Patients having hematocrit values >55% require a special collection tube for coagulation studies. Please contact the laboratory at [phone] for redraw instructions.Performed By: #### CBC, FIB-C, PP #### [facility] [address] [place] [address] USAaPTT Coag (Bld) [Time]81.7 sHigh25.1-36.5The [facility] Physician GroupComment on above:Order Comment: Comment Every 6 hours while on tPAResult Comment: A hematocrit value greater than 55% may lead to inaccurate results in coagulation testing. Patients having hematocrit values >55% require a special collection tube for coagulation studies. Please contact the laboratory at [phone] for redraw instructions.Performed By: #### CBC, FIB-C, PP #### [place] [address] USAINR Coag (PPP) [Relative time]1.1 {INR}NormalThe [facility] Physician GroupComment on above:Order Comment: Comment Every [...] By: #### CBC, FIB-C, PP #### [address] [address] USAPT Coag (PPP) [Time]12.4 sNormal9.0-12.9The [facility] Physician GroupComment on above:Order Comment: Comment Every 6 hours while on tPAResult Comment: A hematocrit value greater than 55% may lead to inaccurate results in coagulation testing. Patients having hematocrit values >55% require a special collection tube for coagulation studies. Please contact the laboratory at [phone] for redraw instructions.Performed By: #### CBC, FIB-C, PP #### [address] [address] USAComplete Blood Count Auto Diffon [id number] (Bld) [#/Vol]0.0 10*3/uLNormal0.0-0.2The [facility] Physician GroupComment on above: Order Comment: Comment Every 6 hours while on tPAResult Comment: PERFORMED BY: [place] [address] PATHOLOGIST HOT HEAD MACHINE OPERATOR JOLIE MASON M.D.Performed By: #### CBC, FIB-C, PP #### [place] [address] USABasophils/100 WBC (Bld)0.8 %Normal.The [facility] Physician GroupComment on above:Order Comment: Comment Every 6 hours while on tPA Performed By: #### CBC, FIB-C, PP #### [place] [address] USAEosinophils (Bld) [#/Vol]0.3 10*3/uLNormal0.0-0.45The [facility] Physician GroupComment on above:Order Comment: Comment Every 6 hours while on tPAPerformed By: #### CBC, FIB-C, PP #### [place] [address] USAEosinophils/100 WBC (Bld)4.1 %Normal.The [facility] Physician GroupComment on above:Order Comment: Comment Every 6 hours while on tPAPerformed By: #### CBC, FIB-C, PP #### [place] [address] USAErythrocyte distribution width (RBC) [Ratio]14.1 %Normal 12.0-14.8The [facility] Physician GroupComment on above:Order Comment: Comment Every 6 hours while on tPAPerformed By: #### CBC, FIB-C, PP #### [place] [address] USAHematocrit (Bld) [Volume fraction]44.4 %Ulyjss19.8-50.0The [facility] Physician GroupComment on above:Order Comment: Comment Every 6 hours while on tPAPerformed By: #### CBC, FIB-C, PP #### [place] [address] USAHemoglobin (Bld) [Mass/Vol]15.0 g/sENnlnng24.0-17.0The [facility] Physician GroupComment on above:Order Comment: Comment Every 6 hours while on tPAPerformed By: #### CBC, FIB-C, PP #### [place] [address] USALymphocytes (Bld) [#/Vol]1.3 10*3/uLNormal1.00-4.8The [facility] Physician GroupComment on above:Order Comment: Comment Every 6 hours while on tPAPerformed By: #### CBC, FIB-C, PP #### [place] [address] USALymphocytes/100 WBC (Bld)22.1 %Normal.The [facility] Physician GroupComment on above:Order Comment: Comment Every 6 hours while on tPAPerformed By: #### CBC, FIB-C, PP #### [place] [address] USAMCH (RBC) [Entitic mass]33.9 glZmmnhr18.5-35.2The [facility] Physician GroupComment on above:Order Comment: Comment Every 6 hours while on tPAPerformed By: #### CBC, FIB-C, PP #### [place] [address] USAMCV (RBC) [Entitic vol]100.2 mEXyhigo38.5-101The [facility] Physician GroupComment on above:Order Comment: Comment Every 6 hours while on tPAPerformed By: #### CBC, FIB-C, PP #### [place] [address] USAMean Corpuscular HGB Conc33.8 g/nVVffbrq74.5-35.6The [facility] Physician GroupComment on above:Order Comment: Comment Every 6 hours while on tPAPerformed By: #### CBC, FIB-C, PP #### [place] [address] USAMonocytes (Bld) [#/Vol]0.4 10*3/uLNormal0.0-0.8The [facility] Physician GroupComment on above:Order Comment: Comment Every 6 hours while on tPAPerformed By: #### CBC, FIB-C, PP #### [place] [address] USAMonocytes/100 WBC (Bld)7.3 %Normal.The [facility] Physician GroupComment on above:Order Comment: Comment Every 6 hours while on tPA Performed By: #### CBC, FIB-C, PP #### [facility] [address] [place] [address] USANeutrophils (Bld) [#/Vol]4.0 10*3/uLNormal1.8-7.7The [facility] Physician GroupComment on above:Order Comment: Comment Every 6 hours while on tPAPerformed By: #### CBC, FIB-C, PP #### [facility] [address] [place], [place] [id number] USANeutrophils/100 WBC (Bld)65.7 %Normal.The [facility] Physician GroupComment on above:Order Comment: Comment Every 6 hours while on tPAPerformed By: #### CBC, FIB-C, PP #### [place] [address] USANRBC%0.2 /100{WBC}Normal0-0.5The [facility] Comment on above:Order Comment: Comment Every 6 hours while on tPAPerformed By: #### CBC, FIB-C, PP #### [facility] [address] [place], [place] [id number] USAPlatelet mean volume (Bld) [Entitic vol]8.0 fLNormal 6.6-10.1The [facility] Physician GroupComment on above:Order Comment: Comment Every 6 hours while on tPAPerformed By: #### CBC, FIB-C, PP #### [facility] [address] [place], [place] [id number] USAPlatelets (Bld) [#/Vol]153 10*3/kXWbteuz989-133Zfb [facility] Physician GroupComment on above:Order Comment: Comment Every 6 hours while on tPAPerformed By: #### CBC, FIB-C, PP #### [place] [id number] USARBC (Bld) [#/Vol]4.43 10*6/uLNormal3.90-5.60The [facility] Physician GroupComment on above:Order Comment: Comment Every 6 hours while on tPAPerformed By: #### CBC, FIB-C, PP #### [place] [address] USAWBC (Bld) [#/Vol]6.1 10*3/uLNormal4.1-10.5The [facility] Physician GroupComment on above:Order Comment: Comment Every 6 hours while on tPAPerformed By: #### CBC, FIB-C, PP #### [place] [address] USABasophils (Bld) [#/Vol]0.0 10*3/uLNormal0.0-0.2The [facility] Physician GroupComment on above:Order Comment: Comment Every 6 hour while on tPAResult Comment: PERFORMED BY: [place] [address] PATHOLOGIST HOT HEAD MACHINE OPERATOR JOLIE MASON M.D.Performed By: #### FIB-C, CBC, PP #### [place] [address] USABasophils/100 WBC (Bld)0.7 %Normal.The [facility] Physician GroupComment on above:Order Comment: Comment Every 6 hour while on tPAPerformed By: #### FIB-C, CBC, PP #### [place] [address] USAEosinophils (Bld) [#/Vol]0.2 10*3/uLNormal0.0-0.45The [facility] Physician GroupComment on above:Order Comment: Comment Every 6 hour while on tPAPerformed By: #### FIB-C, CBC, PP #### [place] [address] USAEosinophils/100 WBC (Bld)3.9 %Normal.The [facility] Physician GroupComment on above:Order Comment: Comment Every 6 hour while on tPA Performed By: #### FIB-C, CBC, PP #### [place] [address] USAErythrocyte distribution width (RBC) [Ratio]13.6 %Normal 12.0-14.8The [facility] Physician GroupComment on above:Order Comment: Comment Every 6 hour while on tPAPerformed By: #### FIB-C, CBC, PP #### [place] [address] USAHematocrit (Bld) [Volume fraction]44.6 %Zuvdqe75.8-50.0The [facility] Physician GroupComment on above:Order Comment: Comment Every 6 hour while on tPAPerformed By: #### FIB-C, CBC, PP #### [place] [address] USAHemoglobin (Bld) [Mass/Vol]14.9 g/uNOucizj11.0-17.0The [facility] Physician GroupComment on above:Order Comment: Comment Every 6 hour while on tPAPerformed By: #### FIB-C, CBC, PP #### [place] [address] USALymphocytes (Bld) [#/Vol]1.4 10*3/uLNormal1.00-4.8The [facility] Physician GroupComment on above:Order Comment: Comment Every 6 hour while on tPAPerformed By: #### FIB-C, CBC, PP #### [place] [id number] USALymphocytes/100 WBC (Bld)22.1 %Normal.The [facility] Physician GroupComment on above:Order Comment: Comment Every 6 hour while on tPA Performed By: #### FIB-C, CBC, PP #### [place] [id number] USAMCH (RBC) [Entitic mass]33.5 tqPucoxv91.5-35.2The [facility] Physician GroupComment on above:Order Comment: Comment Every 6 hour while on tPAPerformed By: #### FIB-C, CBC, PP #### [place] [id number] USAMCV (RBC) [Entitic vol]100.4 rAXuceqe06.5-101The [facility] Physician GroupComment on above:Order Comment: Comment Every 6 hour while on tPA Performed By: #### FIB-C, CBC, PP #### [place] [address] USAMean Corpuscular HGB Conc33.4 g/sOOdqgpw65.5-35.6The [facility] Physician GroupComment on above:Order Comment: Comment Every 6 hour while on tPAPerformed By: #### FIB-C, CBC, PP #### [place] [address] USAMonocytes (Bld) [#/Vol]0.5 10*3/uLNormal0.0-0.8The [facility] Physician GroupComment on above:Order Comment: Comment Every 6 hour while on tPAPerformed By: #### FIB-C, CBC, PP #### [place] [address] USAMonocytes/100 WBC (Bld)7.5 %Normal.The [facility] Physician GroupComment on above:Order Comment: Comment Every 6 hour while on tPAPerformed By: #### FIB-C, CBC, PP #### [place] [address] USANeutrophils (Bld) [#/Vol]4.0 10*3/uLNormal1.8-7.7The [facility] Physician GroupComment on above:Order Comment: Comment Every 6 hour while on tPAPerformed By: #### FIB-C, CBC, PP #### [place] [address] USANeutrophils/100 WBC (Bld)65.8 %Normal.The [facility] Physician GroupComment on above:Order Comment: Comment Every 6 hour while on tPA Performed By: #### FIB-C, CBC, PP #### [place] [address] USANRBC%0.0 /100{WBC}Normal0-0.5The [facility] Group Comment on above:Order Comment: Comment Every 6 hour while on tPAPerformed By: #### FIB-C, CBC, PP #### [place] [address] USAPlatelet mean volume (Bld) [Entitic vol]7.7 fLNormal 6.6-10.1The [facility] Physician GroupComment on above:Order Comment: Comment Every 6 hour while on tPAPerformed By: #### FIB-C, CBC, PP #### [place] [address] USAPlatelets (Bld) [#/Vol]168 10*3/sUNliwxm608-595Bpz [facility] Physician GroupComment on above:Order Comment: Comment Every 6 hour while on tPAPerformed By: #### FIB-C, CBC, PP #### [place] [address] USARBC (Bld) [#/Vol]4.45 10*6/uLNormal3.90-5.60The [facility] Physician GroupComment on above:Order Comment: Comment Every 6 hour while on tPA Performed By: #### FIB-C, CBC, PP #### [place] [address] USAWBC (Bld) [#/Vol]6.1 10*3/uLNormal4.1-10.5The [facility] Physician GroupComment on above:Order Comment: Comment Every 6 hour while on tPA Performed By: #### FIB-C, CBC, PP #### [place] [address] USABasophils (Bld) [#/Vol]0.0 10*3/uLNormal0.0-0.2The [facility] Physician GroupComment on above:Order Comment: Comment Every 6 hours while on tPAResult Comment: PERFORMED BY: [place] [address] PATHOLOGIST HOT HEAD MACHINE OPERATOR JOLIE MASON M.D.Performed By: #### CBC, FIB-C, PP #### [place] [address] USABasophils/100 WBC (Bld)0.7 %Normal.The [facility] Physician GroupComment on above:Order Comment: Comment Every 6 hours while on tPA Performed By: #### CBC, FIB-C, PP #### [place] [address] USAEosinophils (Bld) [#/Vol]0.2 10*3/uLNormal0.0-0.45The [facility] Physician GroupComment on above:Order Comment: Comment Every 6 hours while on tPAPerformed By: #### CBC, FIB-C, PP #### [place] [address] USAEosinophils/100 WBC (Bld)3.3 %Normal.The [facility] Physician GroupComment on above:Order Comment: Comment Every 6 hours while on tPAPerformed By: #### CBC, FIB-C, PP #### [place] [address] USAErythrocyte distribution width (RBC) [Ratio]14.1 %Normal 12.0-14.8The [facility] Physician GroupComment on above:Order Comment: Comment Every 6 hours while on tPAPerformed By: #### CBC, FIB-C, PP #### [place] [address] USAHematocrit (Bld) [Volume fraction]45.5 %Lbdfqo74.8-50.0The [facility] Physician GroupComment on above:Order Comment: Comment Every 6 hours while on tPAPerformed By: #### CBC, FIB-C, PP #### [place] [address] USAHemoglobin (Bld) [Mass/Vol]15.5 g/rCOksxff62.0-17.0The [facility] Physician GroupComment on above:Order Comment: Comment Every 6 hours while on tPAPerformed By: #### CBC, FIB-C, PP #### [place] [address] USALymphocytes (Bld) [#/Vol]1.3 10*3/uLNormal1.00-4.8The [facility] Physician GroupComment on above:Order Comment: Comment Every 6 hours while on tPAPerformed By: #### CBC, FIB-C, PP #### [place] [address] USALymphocytes/100 WBC (Bld)22.0 %Normal.The [facility] Physician GroupComment on above:Order Comment: Comment Every 6 hours while on tPAPerformed By: #### CBC, FIB-C, PP #### [address] (RBC) [Entitic mass]33.9 efBjrndn47.5-35.2The [facility] Physician GroupComment on above:Order Comment: Comment Every 6 hours while on tPAPerformed By: #### CBC, FIB-C, PP #### [address] (RBC) [Entitic vol]99.4 bCMyucep87.5-101The [facility] Physician GroupComment on above:Order Comment: Comment Every 6 hours while on tPAPerformed By: #### CBC, FIB-C, PP #### [place] [address] USAMean Corpuscular HGB Conc34.1 g/cRYgybkc30.5-35.6The [facility] Physician GroupComment on above:Order Comment: Comment Every 6 hours while on tPAPerformed By: #### CBC, FIB-C, PP #### [place] [address] USAMonocytes (Bld) [#/Vol]0.5 10*3/uLNormal0.0-0.8The [facility] Physician GroupComment on above:Order Comment: Comment Every 6 hours while on tPAPerformed By: #### CBC, FIB-C, PP #### [place] [address] USAMonocytes/100 WBC (Bld)8.1 %Normal.The [facility] Physician GroupComment on above:Order Comment: Comment Every 6 hours while on tPA Performed By: #### CBC, FIB-C, PP #### [place] [address] USANeutrophils (Bld) [#/Vol]3.9 10*3/uLNormal1.8-7.7The [facility] Physician GroupComment on above:Order Comment: Comment Every 6 hours while on tPAPerformed By: #### CBC, FIB-C, PP #### [facility] [address] [place] [id number] USANeutrophils/100 WBC (Bld)65.9 %Normal.The [facility] Physician GroupComment on above:Order Comment: Comment Every 6 hours while on tPAPerformed By: #### CBC, FIB-C, PP #### [facility] [address] [place] [address] USANRBC%0.1 /100{WBC}Normal0-0.5The [facility] Comment on above:Order Comment: Comment Every 6 hours while on tPAPerformed By: #### CBC, FIB-C, PP #### [facility] [address] [place] [address] USAPlatelet mean volume (Bld) [Entitic vol]8.1 fLNormal 6.6-10.1The [facility] Physician GroupComment on above:Order Comment: Comment Every 6 hours while on tPAPerformed By: #### CBC, FIB-C, PP #### [facility] [address] [place] [address] USAPlatelets (Bld) [#/Vol]179 10*3/xIKdkeeq144-064Zbe [facility] Physician GroupComment on above:Order Comment: Comment Every 6 hours while on tPAPerformed By: #### CBC, FIB-C, PP #### [facility] [address] [place] [address] USARBC (Bld) [#/Vol]4.58 10*6/uLNormal3.90-5.60The [facility] Physician GroupComment on above:Order Comment: Comment Every 6 hours while on tPAPerformed By: #### CBC, FIB-C, PP #### [facility] [address] [place] [id number] USAWBC (Bld) [#/Vol]5.9 10*3/uLNormal4.1-10.5The [facility] Physician GroupComment on above:Order Comment: Comment Every 6 hours while on tPAPerformed By: #### CBC, FIB-C, PP #### [place] [address] USACreatinineon 86-69-3442Nijflxqfdf [Mass/Vol]0.88 mg/dL Normal0.70-1.30The [facility] Physician GroupComment on above:Performed By: #### CREAT, BUN #### [place] [address] USACreatinine Clr Calc Mbvjkmsz37.76NormalThe [facility] Physician GroupComment on above:Result Comment: PERFORMED BY: [place] [address] PATHOLOGIST HOT HEAD MACHINE OPERATOR JOLIE MASON M.D.Performed By: #### CREAT, BUN #### [place] [address] USAGFR/1.73 sq M.predicted MDRD (S/P/Bld) [Vol rate/Area] mL/min/{1.73_m2}NormalThe [facility] Physician GroupComment on above:Performed By: #### CREAT, BUN #### [place] [address] USAFibrinogenon 20-13-8863Fxmbdwilkt886 mg/qTKrirce726-454Bgr [facility] Physician GroupComment on above:Order Comment: Comment Every 6 hours while on tPAResult Comment: --- 09/14/23 225 --- Fib previously reported as: 194 L mg/dL A hematocrit value greater than 55% may lead to inaccurate results in coagulation testing. Patients having hematocrit values >55% require a special collection tube for coagulation studies. Please contact the laboratory at [phone] for redraw instructions. PERFORMED BY: [place] [address] PATHOLOGIST HOT HEAD MACHINE OPERATOR JOLIE MASON M.D.Performed By: #### CBC, FIB-C, PP #### [address] [place] [address] RAIRcovphrqky126 mg/uOTrltdw132-311[facility] Physician GroupComment on above:Order Comment: Comment Every 6 hours while on tPAResult Comment: A hematocrit value greater than 55% may lead to inaccurate results in coagulation testing. Patients having hematocrit values >55% require a special collection tube for coagulation studies. Please contact the laboratory at [phone] for redraw instructions. PERFORMED BY: [place] [address] PATHOLOGIST HOT HEAD MACHINE OPERATOR JOLIE MASON M.D.Performed By: #### CBC, FIB-C, PP #### [place] [address] PYFSupmmpdnca276 mg/nXFlqdkh791-125Xhj [facility] Physician GroupComment on above:Order Comment: Comment Every 6 hours while on tPAResult Comment: A hematocrit value greater than 55% may lead to inaccurate results in coagulation testing. Patients having hematocrit values >55% require a special collection tube for coagulation studies. Please contact the laboratory at [phone] for redraw instructions. PERFORMED BY: [place] [address] PATHOLOGIST HOT HEAD MACHINE OPERATOR JOLIE MASON M.D.Performed By: #### CBC, FIB-C, PP #### [place] [address] USAType and Screenon [id number] and Rh group Nom (Bld) Blood group O Rh(D) positiveNoLifeBrite Community Hospital of [facility] Physician [facility] MadisonComment on above: Result Comment: PERFORMED BY: [place] [address] PATHOLOGIST HOT HEAD MACHINE OPERATOR JOLIE MASON M.D.US ankle/arm indiceson 31-67-4175YF ankle/arm indicesMCCULLOUGH-HYDE [facility] [place] [address] [place] [address] Ultrasound Report Signed Patient: Pawan Bustillo MR#: [id number] 3 : 1955 Acct:[id number] Age/Sex: 67 / M ADM Date: 09/12/23 Loc: [facility] ER Room: Type: [facility] Attending Dr: Tom Schroeder MD Ordering Provider: [...] Tom Schroeder M.D.09/12/2023 12:20 PM Dictation Location: [place] [address] Tech: Nikole Avitia Transcribed By: NOÉ 09/12/23 1220 Dictated By: Tom Schroeder MD 09/12/23 1218 Signed By: 09/12/23 1220[facility] Physician GroupCreatinine [Mass/volume] in Serum or PlasmaOrdered By: Tom Schroeder on 09-95-1547Bguzwcmlnx [Mass/Vol] 0.89 mg/dL0.70-1.30[facility] DaytonNo Panel InformationOrdered By: Tom Schroeder on 93-33-6317Bhnzpqamb GFR (CKD-EPI)> 60.0 mL/MinKindred Hospital DaytonPharmacy Creatinine Clearance (Chem88.40[facility] DaytonUrea nitrogen [Mass/volume] in Serum or PlasmaOrdered By: Tom Schroeder on 54-62-2675Zcsv nitrogen [Mass/Vol]17 mg/dL7-25[facility] DaytonCreatinine (Bld) [Mass/Vol]Ordered By: Madie Honeycutt on 35-61-7916Wjgfomdsqb [Mass/Vol]1.0 mg/dL0.6-1.3FSt. Anthony's Hospital Comment on above:ER/ESD physician is notified/shown all ISTAT results.Critical values may be confirmed by laboratorytesting ifdeemed necessary by ER attending doctor.No Panel InformationOrdered By: Madie Lopezsergo on 33-61-6011Akpdthc Estimated GFR (eGFR)> 60.0[facility] DaytonCBC AUTO DIFFon [id number] #0.0 103/ulNormal0.0-0.1The [facility] HospitalComment on above: Performed By: #### CBC #### [facility] [address] [address] [address] Kathy ChangBasophils/100 WBC (Bld)0.2 %Normal0.2-2.0[facility] Comment on above:Performed By: #### CBC #### [facility] [address] [address] [address] Kathy Rodriguez #0.0 103/ulNormal0.0-0.7The [facility] HospitalComment on above: Performed By: #### CBC #### [facility] [address] [place] [address] [address] Kathy Hollandosinophils/100 WBC (Bld)0.1 %Critically low0.9-7.0The [facility] HospitalComment on above:Performed By: #### CBC #### [facility] [address] [address] [address] Kathy Hollandrythrocyte distribution width (RBC) [Ratio]12.9 %Cxpwna18.0-15.0 The [facility] HospitalComment on above:Performed By: #### CBC #### [facility] [address] [place] [address] [address] Kathy ChangHematocrit (Bld) [Volume fraction]47.6 %Hnwtwm72.0-54.0The [facility] HospitalComment on above:Performed By: #### CBC #### [facility] [address] [place] [address] [address] Kathy ChangHemoglobin (Bld) [Mass/Vol]16.1 g/hHAduaqk17.0-18.0The [facility] HospitalComment on above:Performed By: #### CBC #### [facility] [address] [place] [address] Dr. Kathy Coleman #0.07 10e3/ulCritically high0.00-0.03The [facility] Comment on above:Performed By: #### CBC #### [facility] [address] [place] [address] Dr. Kathy Colemna %0.4 %Normal0.0-0.5The [facility] HospitalComment on above: Performed By: #### CBC #### [facility] [address] [place] [address] Dr. Kathy Jain #1.0 103/ulCritically low1.2-3.8The [facility] Comment on above:Performed By: #### CBC #### [facility] [address] [place] [address] Dr. Kathy Herrerahocytes/100 WBC (Bld)6.0 %Critically low20.5-60.0The [facility] HospitalComment on above:Performed By: #### CBC #### [facility] [address] [place] [address] Dr. Kathy CanadaUAL DIFF REQNONormalThe [facility] City HospitalComment on above: Performed By: #### CBC #### [facility] [address] [place] [address] Dr. Kathy Aguilar (RBC) [Entitic mass]32.8 kcAyaalq24.9-34.0The [facility] HospitalComment on above:Performed By: #### CBC #### [facility] [address] [place] [address] Dr. Kathy Aguilar (RBC) [Mass/Vol]33.8 g/dOPysful67.9-35.2The [facility] HospitalComment on above:Performed By: #### CBC #### [facility] [address] [place] [address] Dr. Kathy Jansen (RBC) [Entitic vol]96.9 fLCritically high80.0-94.0The [facility] HospitalComment on above:Performed By: #### CBC #### [facility] [address] [place] [address] Dr. Kathy Oreilly #0.8 103/ulNormal0.3-0.8The [facility] HospitalComment on above:Performed By: #### CBC #### [facility] [address] [place] [address] Dr. Kathy Parkerocytes/100 WBC (Bld)5.1 %Normal1.7-12.0[facility] Comment on above:Performed By: #### CBC #### [facility] [address] [place] [address] Dr. Kathy Kennedy #13.9 103/ulCritically high1.4-6.5The [facility] Comment on above:Performed By: #### CBC #### [facility] [address] [place] [address] Dr. Kathy Jean Baptisteutrophils/100 WBC (Bld)88.2 %Critically high43.0-75.0The [facility] HospitalComment on above:Performed By: #### CBC #### [facility] [address] [place] [address] Dr. Kathy Del Angellet mean volume (Bld) [Entitic vol]9.2 fLCritically low 9.5-13.5The [facility] HospitalComment on above:Performed By: #### CBC #### [facility] [address] [place] [address] Dr. Kathy KingT190 103/vhGxspim926-444Uwu [facility] HospitalComment on above: Performed By: #### CBC #### [facility] [address] [place] [address] Dr. Kathy ChangRBC4.91 106/ulNormal4.70-6.10The [facility] HospitalComment on above:Performed By: #### CBC #### [facility] [address] [place] [address] Dr. Kathy ChangWBC15.8 103/ulCritically high4.0-11.0The [facility] HospitalComment on above:Performed By: #### CBC #### [facility] [address] [place] [address] Dr. Kathy ChangPROF CHEM 8 (BAS METB)on 67-54-6536Vwbbs gap [Moles/Vol]13.4 mmol/LNormalThe [facility] HospitalComment on above:Performed By: #### BMP #### [facility] [address] [place] [address] Dr. Kathy ChangCalcium [Mass/Vol]9.2 mg/dLNormal8.5-10.1The [facility] Comment on above:Performed By: #### BMP #### [facility] [address] [place] [address] Dr. Kathy ChangChloride [Moles/Vol]100 mmol/SOmaygc47-302Nbl [facility] Comment on above:Performed By: #### BMP #### [facility] [address] [place] [address] Dr. Kathy ChangCO2 [Moles/Vol]30.3 mmol/GEttzmb29.0-32.0[facility] Comment on above:Performed By: #### BMP #### [facility] [address] [place] [address] Dr. Kathy ChangCreatinine [Mass/Vol]1.01 mg/dLNormal0.70-1.30The [facility] HospitalComment on above:Performed By: #### BMP #### [facility] [address] [place] [address] Dr. Kathy HollandGFR-AF IRISH>60Normal>=60The [facility] HospitalComment on above:Performed By: #### BMP #### [facility] [address] [place] [address] Dr. Kathy HollandGFR-NON AF IRISH>60Normal>=60The [facility] HospitalComment on above:Performed By: #### BMP #### [facility] [address] [place] [address] Dr. Kathy ChangGlucose [Mass/Vol]109 mg/dLCritically ybge93-601Ksr [facility] HospitalComment on above:Performed By: #### BMP #### [facility] [address] [place] [address] Dr. Kathy ChangPotassium [Moles/Vol]4.7 mmol/LNormal3.5-5.1[facility] Comment on above:Performed By: #### BMP #### [facility] [address] [place] [address] Dr. Kathy Burtdium [Moles/Vol]139 mmol/ZMumdgc408-859QgaMarymount Hospital Comment on above:Performed By: #### BMP #### [facility] [address] [place] [address] Dr. Kathy ChangUrea nitrogen [Mass/Vol]19.0 mg/dLCritically high7.0-18.0The [facility] HospitalComment on above:Performed By: #### BMP #### [facility] [address] [place] [address] Dr. Kathy White nitrogen/Creatinine [Mass ratio]18.8 mg/mgNormalThe [facility] HospitalComment on above:Performed By: #### BMP #### [facility] [address] [place] [address] Dr. Kathy Kaur AUTO DIFFon 93-22-2968HKED #0.0 103/ulNormal0.0-0.1The [facility] HospitalComment on above:Performed By: #### CBC #### [facility] [address] [place] [address] Dr. Kathy ChangBajuliophils/100 WBC (Bld)0.5 %Normal0.2-2.0[facility] Comment on above:Performed By: #### CBC #### [facility] [address] [place] [address] Dr. Kathy Rodriguez #0.2 103/ulNormal0.0-0.7The [facility] HospitalComment on above: Performed By: #### CBC #### [facility] [address] [place] [address] Dr. Kathy Hollandosinophils/100 WBC (Bld)2.6 %Normal0.9-7.0[facility] Comment on above:Performed By: #### CBC #### [facility] [address] [place] [address] Dr. Kathy Hollandrythrocyte distribution width (RBC) [Ratio]12.6 %Aaugds97.0-15.0 The [facility] HospitalComment on above:Performed By: #### CBC #### [facility] [address] [place] [address] Dr. Kathy ChangHematocrit (Bld) [Volume fraction]50.6 %Hqxccx56.0-54.0The [facility] HospitalComment on above:Performed By: #### CBC #### [facility] [address] [place] [address] Dr. Kathy ChangHemoglobin (Bld) [Mass/Vol]17.3 g/vTNcylxl52.0-18.0The [facility] HospitalComment on above:Performed By: #### CBC #### [facility] [address] [place] [address] Dr. Kathy Coleman #0.08 10e3/ulCritically high0.00-0.03The [facility] Comment on above:Performed By: #### CBC #### [facility] [address] [place] [address] Dr. Kathy Coleman %0.9 %Critically high0.0-0.5The [facility] HospitalComment on above:Performed By: #### CBC #### [facility] [address] [place] [address] Dr. Kathy HerreraH #1.8 103/ulNormal1.2-3.8The [facility] HospitalComment on above:Performed By: #### CBC #### [facility] [address] [place] [address] Dr. Kathy Croninmphocytes/100 WBC (Bld)20.9 %Royvuw72.5-60.0The [facility] HospitalComment on above:Performed By: #### CBC #### [facility] [address] [place] [address] Dr. Kathy Borja DIFF REQNONormalThe [facility] HospitalComment on above: Performed By: #### CBC #### [facility] [address] [place] [address] Dr. Kathy Aguilar (RBC) [Entitic mass]33.1 teEyvkvf40.9-34.0The [facility] HospitalComment on above:Performed By: #### CBC #### [facility] [address] [place] [address] Dr. Kathy Aguilar (RBC) [Mass/Vol]34.2 g/hTGghgbr87.9-35.2The [facility] HospitalComment on above:Performed By: #### CBC #### [facility] [address] [place] [address] Dr. Kathy Aguilar (RBC) [Entitic vol]96.9 fLCritically high80.0-94.0The [facility] HospitalComment on above:Performed By: #### CBC #### [facility] [address] [place] [address] Dr. Kathy Oreilly #0.6 103/ulNormal0.3-0.8The [facility] HospitalComment on above:Performed By: #### CBC #### [facility] [address] [place] [address] Dr. Kathy Parkerocytes/100 WBC (Bld)6.7 %Normal1.7-12.0The [facility] Comment on above:Performed By: #### CBC #### [facility] [address] [place] [address] Dr. Kathy Kennedy #6.0 103/ulNormal1.4-6.5The [facility] HospitalComment on above:Performed By: #### CBC #### [facility] [address] [place] [address] Dr. Kathy Jean Baptisteutrophils/100 WBC (Bld)68.4 %Qhghpl83.0-75.0The [facility] HospitalComment on above:Performed By: #### CBC #### [facility] [address] [place] [address] Dr. Kathy ChangPlatelet mean volume (Bld) [Entitic vol]9.0 fLCritically low 9.5-13.5The [facility] HospitalComment on above:Performed By: #### CBC #### [facility] [address] [place] [address] Dr. Kathy ChangPLT200 103/glDgdrcw372-417Xky [facility] HospitalComment on above: Performed By: #### CBC #### [facility] [address] [place] [address] Dr. Kathy ChangRBC5.22 106/ulNormal4.70-6.10The [facility] HospitalComment on above:Performed By: #### CBC #### [facility] [address] [place] [address] Dr. Kathy ChangWBC8.7 103/ulNormal4.0-11.0The [facility] HospitalComment on above: Performed By: #### CBC #### [facility] [address] [place] [address] Dr. Kathy BruceID PROFILEon [id number]-HDL RATIO NORMSEE [facility] ClinicComment on above:Result Comment: 3.3 - 4.4 LOW RISK 4.4 - 7.1 AVERAGE RISK 7.1 - 11.0 MODERATE RISK >11.0 HIGH RISKPerformed By: #### CMP, LIPID #### [facility] [address] [place] [address] Dr. Kathy ChangCholesterol [Mass/Vol]145 mg/dLNormal<=200The [facility] Comment on above:Performed By: #### CMP, LIPID #### [facility] [address] [place] [address] Dr. Kathy ChangCholesterol in HDL [Mass/Vol]50 mg/qUYauosb39-73Lcq [facility] HospitalComment on above:Performed By: #### CMP, LIPID #### [facility] [address] [place] [address] Dr. Kathy ChangCholesterol in LDL [Mass/Vol]83.8 mg/dLBerger HospitalComment on above:Performed By: #### CMP, LIPID #### [facility] [address] [place] [address] Dr. Kathy Mathis.total/Cholesterol in HDL [Mass ratio]2.9 {ratio} NormalThe [facility] City HospitalComment on above:Performed By: #### CMP, LIPID #### [facility] [address] [place] [address] Dr. Kathy Forrester NORMAL> or = 60 mg/dl - LOW CARDIOVASCULAR RISK <40 mg/dl - HIGH CARDIOVASCULAR RISKNoMemorial Health System Selby General HospitalComment on above:Performed By: #### CMP, LIPID #### [facility] [address] [place] [address] Dr. Kathy Rudd CALC NORMALSEE BELOWNoMemorial Health System Selby General HospitalComment on above:Result Comment: <100 mg/dl OPTIMAL 100 - 129 mg/dl NEAR OR ABOVE OPTIMAL 130 - 159 mg/dl BORDERLINE HIGH 160 - 189 mg/dl HIGH >190 mg/dl VERY HIGH Performed By: #### CMP, LIPID #### [facility] [address] [place] [address] Dr. Kathy ChangTriglyceride [Mass/Vol]56 mg/dLNormal<=150The [facility] Comment on above:Performed By: #### CMP, LIPID #### [facility] [address] [place] [address] Dr. Kathy ChangVLDL CALC11.2 mg/dLNoMemorial Health System Selby General HospitalComment on above: Performed By: #### CMP, LIPID #### [facility] [address] [place] [address] Dr. Kathy ChangPROF 14(COMP METB)on 06-10-4224Otdyuje [Mass/Vol]4.2 g/dLNormal 3.4-5.0The [facility] HospitalComment on above:Performed By: #### CMP, LIPID #### [facility] [address] [address] [address] Kathy ChangAlbumin/Globulin [Mass ratio]1.4 {ratio}NormalThe [facility] City HospitalComment on above:Performed By: #### CMP, LIPID #### [facility] [address] [address] [address] Kathy Rincon [Catalytic activity/Vol]88 U/UYaroot00-819Awr [facility] HospitalComment on above:Performed By: #### CMP, LIPID #### [facility] [address] [address] [address] Kathy Hussein [Catalytic activity/Vol]26 U/MQhtdhd48-38Wkg [facility] HospitalComment on above:Performed By: #### CMP, LIPID #### [facility] [address] [address] [address] Kathy Baumannon gap [Moles/Vol]8.8 mmol/LNormalThe [facility] HospitalComment on above:Performed By: #### CMP, LIPID #### [facility] [address] [address] [address] Kathy Garrett [Catalytic activity/Vol]17 U/SHaalvw26-43Lnu [facility] on above:Performed By: #### CMP, LIPID #### [facility] [address] [address] [address] Kathy ChangBilirubin [Mass/Vol]0.7 mg/dLNormal0.2-1.0The [facility] Comment on above:Performed By: #### CMP, LIPID #### [facility] [address] [address] [address] Kathy ChangCalcium [Mass/Vol]9.8 mg/dLNormal8.5-10.1The [facility] Comment on above:Performed By: #### CMP, LIPID #### [facility] [address] [address] [address] Kathy ChangChloride [Moles/Vol]103 mmol/DNasbeo58-731Bha [facility] Comment on above:Performed By: #### CMP, LIPID #### [facility] [address] [address] [address] Kathy ChangCO2 [Moles/Vol]32.3 mmol/LCritically high21.0-32.0The [facility] HospitalComment on above:Performed By: #### CMP, LIPID #### [facility] [address] [place] [address] Dr. Kathy ChangCreatinine [Mass/Vol]0.97 mg/dLNormal0.70-1.30The [facility] HospitalComment on above:Performed By: #### CMP, LIPID #### [facility] [address] [place] [address] Dr. Kathy HollandGFR-AF IRISH>60Normal>=60The [facility] HospitalComment on above:Performed By: #### CMP, LIPID #### [facility] [address] [place] [address] Dr. Kathy HollandGFR-NON AF IRISH>60Normal>=60The [facility] HospitalComment on above:Performed By: #### CMP, LIPID #### [facility] [address] [place] [address] Dr. Kathy ChangGlobulin (S) [Mass/Vol]3.1 g/dLNormalThe [facility] HospitalComment on above:Performed By: #### CMP, LIPID #### [facility] [address] [place] [address] Dr. Kathy ChangGlucose [Mass/Vol]111 mg/dLCritically pqgu65-532Eoc [facility] HospitalComment on above:Performed By: #### CMP, LIPID #### [facility] [address] [place] [address] Dr. Kathy ChangPotassium [Moles/Vol]5.1 mmol/LNormal3.5-5.1The [facility] Comment on above:Performed By: #### CMP, LIPID #### [facility] [address] [place] [address] Dr. Kathy ChangProtein [Mass/Vol]7.3 g/dLNormal6.4-8.2[facility] Comment on above:Performed By: #### CMP, LIPID #### [facility] [address] [address] [address] Kathy ChangSodium [Moles/Vol]139 mmol/FEpqrip444-282Qoe [facility] Comment on above:Performed By: #### CMP, LIPID #### [facility] [address] [address] [address] Kathy White nitrogen [Mass/Vol]20.0 mg/dLCritically high7.0-18.0The [facility] HospitalComment on above:Performed By: #### CMP, LIPID #### [facility] [address] [address] [address] Kathy White nitrogen/Creatinine [Mass ratio]20.6 mg/mgNormalThe [facility] HospitalComment on above:Performed By: #### CMP, LIPID #### [facility] [address] [address] [address] Kathy ChangCT CHEST WO CONon 17-37-1978IN CHEST WO CONEXAMINATION: CT CHEST WO CON [...] Electronically authenticated by: MUNIR GARCIA Date: 2022-06-16 15:46NoMemorial Health System Selby General HospitalCT CHEST WO CONon [id number] CHEST WO CONEXAMINATION: CT CHEST WO CON [...] Electronically authenticated by: MUNIR GARCIA Date: 2021-12-14 11:09[facility] HospitalCardiovascular Lab Reporton [id number] Lab Report [facility] Patient Name: Pawan Bustillo [facility] MR #: [id number] Physician: Chavo Santana, Department of M.D. Medicine Service Date: 06/05/2019 Division of Birthdate: 1955 Cardiology Room #: [facility] Cardiovascular Services [facility] [address] [place] [address] Cardiovascular Laboratory Report IMPRESSIONS: 1. Patent stent in the mid left anterior descending coronary artery. 2. 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 METHODS: After risks, benefits, and alternatives were explained, written informed consent was obtained. The patient was prepped and draped in usual sterile fashion over the right groin. Using 1% lidocaine solution, local infiltration anesthesia was achieved. Using a modified Seldinger technique, micropuncture kit, access of the right common femoral artery was obtained. A 6-Czech 11 cm sheath was inserted without difficulty. Baseline femoral angiography was performed. Bilateral selective coronary angiography was performed using JL4 and JR4 catheters. After reviewing the images, it was elected to conclude the procedure. A 6-Czech MynxGrip closure device was inserted however deployment [...] Santana M.D. Date Trans: 06/06/2019 03:46 A/natalee DN_JN:[id number] cc: Sancho Leroy M.D. [address] [place] [address] Vital Signs Date TimeVital SignValuePerforming LxndlgofhRxbvzufg00-11-3211 13:14-0400Body pqijiz074.34 cmKeaton Rico MD Work Phone: [phone]10-14-2025 13:14-0400 Body mass index (BMI) [Ratio]27.4 kg/m6DgfhmwKeaton Rico MD Work Phone: [phone]10-14-2025 13:14-0400 Body pjdrczavpcm72.3 [degF]Keaton Rico MD Work Phone: [phone]10-14-2025 13:14-0400 Body ocxvuh19.35 kgKeaton Rico MD Work Phone: [phone]10-14-2025 13:14-0400 Diastolic blood rcfamehu55 mm[Hg]Keaton Rico MD Work Phone: [facility]10-14-2025 13:14-0400 Heart nwpj615 /minKeaton Rico MD Work Phone: [phone])[address]10-14-2025 13:14-0400 SaO2% (BldA) [Mass fraction]86 %Keaton Rico MD Work Phone: [phone])[address] [place], [place] [address]71[address]10-14-2025 13:14-0400 Systolic blood diwnpbms383 mm[Hg]Keaton Rico MD Work Phone: 1(419)[address] [place], [place] 9711208-25-2025 12:15-0400 Body gqomlh030.34 cmKeaton Rico MD Work Phone: 1(419)[address] [place], [place] 971[address]08-25-2025 12:15-0400 Body mass index (BMI) [Ratio]27.5 kg/w6SwepicKeaton Rico MD Work Phone: 1(408)[address] [place], [place] 971[address]08-25-2025 12:15-0400 Body plfuxnixccd31.3 [degF]Keaton Rico MD Work Phone: 1(714)[address] [place], [place] 971[address]08-25-2025 12:15-0400 Body afqbgj13.58 kgKeaton Rico MD Work Phone: 1(888)[address] [place], [place] 971[address]08-25-2025 12:15-0400 Diastolic blood mm[Hg]Keaton Rico MD Work Phone: 1(576)[address] [place], [place] 9[address]08-25-2025 12:15-0400 Heart rate70 /Lenore Rico MD Work Phone: 1(128)[address] [place], [place] 971[address]08-25-2025 12:15-0400 Respiratory rate19 /Lenore Rico MD Work Phone: 1(419)[address] [place], [place] [address]71[address]08-25-2025 12:15-0400 SaO2% (BldA) [Mass fraction]98 %Keaton Rico MD Work Phone: 1(419)[address] [place], [place] [address]71[address]08-25-2025 12:15-0400 Systolic blood mm[Hg]Keaton Rico MD Work Phone: 1(419)[address] [place], [place] [address]71[address]02-04-2025 13:29-0500 Body vsryiurmdeu20.1 [degF]Keaton Rico MD Work Phone: [phone])16533 [address]02-04-2025 13:29-0500 Diastolic blood wtvzqeom63 mm[Hg]Keaton Rico MD Work Phone: 1(787)[address] [place], [place] [address]71[address]02-04-2025 13:29-0500 Heart rate90 /Lenore Rico MD Work Phone: 1(124)[address] [place], [place] 971[address]02-04-2025 13:29-0500 SaO2% (BldA) [Mass fraction]90 %Keaotn Rico MD Work Phone: 1(797)[address] [place], [place] [address]71[address]02-04-2025 13:29-0500 Systolic blood rilshxgv813 mm[Hg]Keaton Rico MD Work Phone: 1(395)[address] [place], [place] 971[address]12-30-2024 14:38-0500 Body .34 cmKeaton Rico MD Work Phone: 1(194)[address] [place], [place] 971[address]12-30-2024 14:38-0500 Body mass index (BMI) [Ratio]28.1 kg/o7GqqwpgKeaton Rico MD Work Phone: 1(457)[address] [place], [place] 971[address]12-30-2024 14:38-0500 Body .2 [degF]Keaton Rico MD Work Phone: 1(444)[address] [place], [place] 971[address]12-30-2024 14:38-0500 Body unzycx15.62 kgKeaton Rico MD Work Phone: 1(642)[address] [place], [place] 971[address]12-30-2024 14:38-0500 Diastolic blood gorwemrf12 mm[Hg]Keaton Rico MD Work Phone: 1(091)[address] [place], [place] 971[address]12-30-2024 14:38-0500 Heart cfvh022 /Lenore Rico MD Work Phone: 1(430)[address] [place], [place] 971[address]12-30-2024 14:38-0500 SaO2% (BldA) [Mass fraction]89 %Keaton Rico MD Work Phone: 1(085)31133 [address]12-30-2024 14:38-0500 Systolic blood ezhlxcvw264 mm[Hg]Keaton Rico MD Work Phone: 1(187)03333 [address]06-18-2024 12:51-0400 Body lesbfa462.34 cmMD Keaton Rico Work Phone: 1(978)01133 [address]06-18-2024 12:51-0400 Body mass index (BMI) [Ratio]25.8 kg/m2MD Keaton Rico Work Phone: 1(510)[address]06-18-2024 12:51-0400 Body jcjaudjdjeq68.8 [degF]MD Keaton Rico Work Phone: 1(470)70233 [address]06-18-2024 12:51-0400 Body btoroo50 kgMD Keaton Rico Work Phone: 1(707)47433 [address]06-18-2024 12:51-0400 Diastolic blood hunhwkzd35 mm[Hg]MD Keaton Rico Work Phone: 1(475)76233 [address]06-18-2024 12:51-0400 Heart rate66 /minMD Keaton Rico Work Phone: 1(458)05333 [address]06-18-2024 12:51-0400 Respiratory rate16 /minMD Keaton Rico Work Phone: 1(530)88033 [address]06-18-2024 12:51-0400 SaO2% (BldA) [Mass fraction]98 %MD Keaton Rico Work Phone: 1(208)41233 [address]06-18-2024 12:51-0400 Systolic blood kazxqihg369 mm[Hg]MD Keaton Rico Work Phone: 1(681)94133 [address]02-17-2024 08:00-0500 Body uzolyhphdci68.9 [degF]MD Keaton Rico Work Phone: 1(212)34233 [address]02-17-2024 08:00-0500 Diastolic blood lqunlmdj12 mm[Hg]MD Keaton Rico Work Phone: 1(298)46533 [address]02-17-2024 08:00-0500 Heart rate94 /minMD Keaton Rico Work Phone: [facility]02-17-2024 08:00-0500 Respiratory rate20 /minMD Keaton Rico Work Phone: [phone]02-17-2024 08:00-0500 SaO2% (BldA) [Mass fraction]88 %MD Keaton Rico Work Phone: [phone]02-17-2024 08:00-0500 Systolic blood yurrraxk899 mm[Hg]MD Keaton Rico Work Phone: [phone]02-17-2024 07:26-0500 Inhaled oxygen flow rate1 L/minMD Keaton Rico Work Phone: 1(288)338-[address] [place], [place] [address]2-17-2024 06:00-0500 Body eujign94.5 kgMD Keaton Rico Work Phone: 1(707)916-[address] [place], [place] [address]2-15-2024 15:35-0500 Body fbkzeg801.34 cmMD Keaton Rico Work Phone: [phone]02-12-2024 12:00-0500 Body czjxac203.8 cmTom Schroeder Other [employer] Other 02-12-2024 12:00-0500Body mass index (BMI) [Ratio] 27.12 kg/p6YzeqtseTom Schroeder Other [employer] Other 02-12-2024 12:00-0500Body woukvpirsia38.3 [degF] Tom Schroeder Other [employer] [facility] Other 02-12-2024 12:00-0500Body ghvuiq67.73 kgTom Schroeder Other [facility] Other 02-12-2024 12:00-0500Diastolic blood tcuqntkg83 mm[Hg] Tom Schroeder Other [facility] [employer] Other 02-12-2024 12:00-2580YaO1% (BldA) [Mass fraction]92 % Tom Schroeder Other [facility] [employer] Other 02-12-2024 12:00-0500Systolic blood fehbtips39 mm[Hg] Tom Hammresuzie Other [facility] [employer] Other 10-18-2023 18:15-0400Diastolic blood mm[Hg] MD Keaton Rico Work Phone: [phone]10-18-2023 18:15-0400 Heart rate70 /minMD Keaton Rico Work Phone: [phone]10-18-2023 18:15-0400 Respiratory rate16 /minMD Keaton Rico Work Phone: 1(587)000-[address] [place], [place] [address]10-18-2023 18:15-0400 SaO2% (BldA) [Mass fraction]91 %MD Keaton Rico Work Phone: [phone])[phone]10-18-2023 18:15-0400 Systolic blood lvbgpsif735 mm[Hg]MD Keaton Rico Work Phone: [phone])327-67[facility]10-18-2023 12:27-0400 Inhaled oxygen flow rate3 L/minMD Keaton Rico Work Phone: 1(153)200-[address] [place], [place] [address]10-18-2023 08:04-0400 Body .88 cmMD Keaton Rico Work Phone: [phone]10-18-2023 08:04-0400 Body .18 kgMD Keaton Rico Work Phone: 1([phone]10-16-2023 10:15-0400 Body .8 cmWilliamhemalatha Hammrer Other [employer] Other 10-16-2023 10:15-0400Body mass index (BMI) [Ratio] 27.12 kg/j8LajohlqTom Hammrer Other [employer] Other 10-16-2023 10:15-0400Body xkjnofqwfbs22.8 [degF] Tom Elda Other [employer] Other 10-16-2023 10:15-0400Body eqfarm66.73 kgTom Hammrer Other [employer] Other 10-16-2023 10:15-0400Diastolic blood mm[Hg] Tom Schroeder Other [employer] Other 10-16-2023 10:15-3556KwD6% (BldA) [Mass fraction]96 % Tom Elda Other [employer] Other 10-16-2023 10:15-0400Systolic blood bbpizfkk552 mm[Hg] Tom Schroeder Other [employer] Other 09-26-2023 11:45-0400Body qmenlb024.8 cmMadie Honeycutt Other [employer] Other 09-26-2023 11:45-0400Body mass index (BMI) [Ratio] 27.12 kg/f1JtpxceMadie Honeycutt Other [employer] Other 09-26-2023 11:45-0400Body tdqjfniktdc63 [degF]Madie Honeycutt Other [employer] Other 09-26-2023 11:45-0400Body honrwn83.73 kgMadie Honeycutt Other [employer] Other 09-26-2023 11:45-0400Diastolic blood lsrlxehd91 mm[Hg] Madie Honeycutt Other [email or web address] Other 09-26-2023 11:45-1418ExZ3% (BldA) [Mass fraction]97 % Madie Honeycutt Other [employer] Other 09-26-2023 11:45-0400Systolic blood aurhljdx793 mm[Hg] Madie Honeycutt Other [employer] Other 05-25-2023 15:30-0400Body .8 cmKeaton Rico Other [employer] Other 05-25-2023 15:30-0400Body mass index (BMI) [Ratio] 27.12 kg/v2YmoiikKeaton Rico Other [employer] Other 05-25-2023 15:30-0400Body uevalerrxfg544 [degF]Keaton Rico Other [employer] Other 05-25-2023 15:30-0400Body .73 kgKeaton Rico Other [employer] Other 05-25-2023 15:30-0400Diastolic blood vggbrdyu50 mm[Hg] Keaton Rico Other [employer] Other 05-25-2023 15:30-1576BiD7% (BldA) [Mass fraction]97 % Keaton Rico Other [employer] Other 05-25-2023 15:30-0400Systolic blood anhwuncy081 mm[Hg] Keaton Rico Other [employer] Other 04-11-2023 11:15-0400Body scayms716.8 cmKeaton Rico Other [employer] Other 04-11-2023 11:15-0400Body mass index (BMI) [Ratio] 26.54 kg/g2PeqjciKeaton Rico Other [employer] Other 04-11-2023 11:15-0400Body utjudm94.92 kgKeaton Rico Other [employer] Other 04-11-2023 11:15-0400Diastolic blood kqqvazls54 mm[Hg] Keaton Rico Other [employer] Other 04-11-2023 11:15-5067UkI0% (BldA) [Mass fraction]97 % Keaton Rico Other [employer] Other 04-11-2023 11:15-0400Systolic blood oyetawsz994 mm[Hg] Keaton Rico Other [employer] Other 09-19-2022 09:56-0400Respiratory rate16 /minPatrick [employer] [facility]10-11-2021 10:00-0400Body .34 cmTom Schroeder Other [email or web address] Other 10-11-2021 10:00-0400Body mass index (BMI) [Ratio]25.8 kg/q9Kvibxfs Buehrios Other [email or web address] Other 10-11-2021 10:00-0400Body hqmogtmlnna67.9 [degF] Tom Schroeder Other [employer] Other 10-11-2021 10:00-0400Body dyeabz87.92 kgTom Neffsuzie Other [employer] Other 10-11-2021 10:00-0400Diastolic blood pseesedy46 mm[Hg] Tom Schroeder Other [facility] [employer] Other 10-11-2021 10:00-9435WxX6% (BldA) [Mass fraction]96 % Tom Schroeder Other [employer] Other 10-11-2021 10:00-0400Systolic blood nkuohzhp626 mm[Hg] Tom Schroeder Other [employer] Other Encounters Encounter DateEncounter TypeCare ProviderFacilityStart: 09-10-6377ftdrwxafwr Lorin X OrzechFacility:EU BellevueStart: 05-14-2025 End: 31-05-3963rvkjqiczbaSoqmuo E Braun MD Work Phone: [facility] Work Phone: Start: 05-14-2025 End: 84-74-4848Xrwfqaq encounter procedureKeaton Rico MD-[facility] Work Phone: Start: 04-04-2025 End: 82-13-7317orjtyytcccHogcxz X OrzechFacility:EU [place]vueStart: 04-04-2025 End: 24-24-9453Ilndwrw encounter procedureAurora X [employer] [facility] start: 03-25-2025 End: 94-42-2160tffrgjuebvWouami E Braun MD Work Phone: [facility] Work Phone: Start: 03-25-2025 End: 54-71-4113Cnllhsc encounter procedureTosha Jeff [facility] Work Phone: Start: 03-11-2025 End: 00-70-4947sshhfmapcxFCOFXF [facility] Start: 09-18-2024 End: 72-50-4646uqorruzrhrSIVATBR [facility] Start: 09-04-2024 End: 12-60-5945Upsdylp encounter procedureKeaton Rico MD Work Phone: [facility] Physician [facility] Work Phone: Start: 09-04-2024 End: 19-85-0453gebdapygarDapofv E Braun MD Work Phone: [facility] Work Phone: Start: 07-30-2024 End: 76-33-0625Jnduepy encounter procedureKeaton Rico MD Work Phone: [facility] Work Phone: Start: 57-80-6072Caeeutp encounter Juanis Rico MD [facility] Phone: [facility] 01-17-2024 End: 84-60-1011reitwemqldAH Marcia E Braun Work Phone: [facility] Work Phone: Start: 01-17-2024 End: 97-39-8391Kfqgkvr encounter procedureMD Keaton Rico Work Phone: [facility] V[facility] Surgery Work Phone: Start: 10-20-2023 End: 60-02-6312Qswcezo encounter procedureMD Keaton Rico Work Phone: [facility] Work Phone: Start: 68-80-8276Aob-patient / Non-visitMD Yee Rico Work Phone: [facility] Pulmonary Disease Work Phone: Start: 96-80-9097Lrk-patient / Non-visitMD Keaton Rico Work Phone: [facility] Work Phone: Start: 09-14-2023 End: 11-20-8326Vidbsyrvam and management of inpatientMD Keaton Rico Work Phone: [facility] Work Phone: Start: 30-57-9177Gswfpb outpatient visit 25 minutes Tom Galeano Vascular SurgeryStart: 09-12-2023 End: 86-01-4376Dgpphbm encounter procedure Keaton Rico Work Phone: [facility]ascularStart: 09-12-2023 End: 32-37-7895jwrhdwzcycYC Keaton Hernandes Rico Work Phone: [employer] Other Start: 06-13-2023 End: 27-17-5529zbrbufckzzJnidws Jacky Other [employer] Other Start: 17-81-5635Njogsefzh encounterMarcia BraunFPG [facility]: 05-18-2023 End: 38-93-6723Lxhomgohh to same day surgery centerMD Keaton Rico Work Phone: [facility]-Interventional Radiology Work Phone: Start: 05-18-2023 End: 96-26-3163iejyqbziqaXP Marcia E Braun Work Phone: [facility] Work Phone: Start: 05-16-2023 End: 83-89-7086brbqrzinerUabemgs Buehrer Other [employer] Other Start: 38-35-6058Nwmtac outpatient visit 25 minutes Tom Esposito Vascular SurgeryStart: 05-02-2023 End: 01-98-3828Afuntty encounter procedure Keaton Rico Work Phone: [facility]-CT Scan [place] Work Phone: Start: 04-26-2023 End: 81-33-6712xecvetwvfkBreklo Ruttino Other [employer] Other Start: 81-08-8330Dbpozqo encounter procedureMadie Rios Vascular SurgeryStart: 02-14-2023 End: 84-17-9634abmygchzlmBfaftp Braun Other [email or web address] Other Start: 13-77-7731Xtfmvmpjp encounterKeaton Santiago [facility]: 12-23-2022 End: 07-56-2176osrodcbresQbulvq Braun Other [email or web address] Other Start: 92-29-0778Widxib outpatient visit 15 minutes Keaton Santiago [facility]: 11-12-2022 End: 57-30-6560inkkqfehveUirkhf Braun Other noPAAY [employer] Other Start: 67-39-0670Yambarmop encounterKeaton Colin [facility] Hospitaltart: 11-09-2022 End: 36-81-2055jnhdrxjcflNlsbyr Jacky Other [email or web address] Other Start: 49-40-6635Jvanjv outpatient visit 15 minutes Keaton RicoDennis [facility] Centertart: 58-42-7008Iinqdgyrb for other preprocedural examinationMOHAMAD ANNAAultman Alliance Community Hospitaltart: 11-01-2022 End: 67-75-2375hluhkdrqjkJH KEATON RICOFacility:H4Spltp: 11-01-2022 End: 87-89-1724Klpainvou for other preprocedural examinationDR KEATON RICO Facility:O0Foeui: 10-29-2022 End: 31-48-8672mvtuqnfsgiVvslfu Braun Other [email or web address] Other Start: 73-56-5666Ijnowzysf encounterKeaton Santiago [facility] Centertart: 10-18-2022 End: 41-95-6171Zbqdhxp encounter procedureMaritza Balderas CAGLE [facility] start: 09-28-2022 End: 78-01-6501orpukzvjnwKB MISCFacility:O1Icvez: 06-16-2022 End: 09-80-9549qksylcphsmTL KEATON RICOFacility:X4Lefet: 04-19-2022 End: 66-74-4742Kgxstgi encounter procedurePasari CAGLE [facility] start: 01-19-2022 End: 25-64-0028Jfdgowu encounter procedurePasari Balderas CAGLE [facility] Start: 12-14-2021 End: 28-17-2647wntmdzddonYT KEATON RICOFacility:X5Prfhe: 25-19-8887Bvejinprs encounterTom NeffNorthern Colorado [facility] Vascular SurgeryStart: 91-28-9815OWPV visit new patientJehemalatha OteroAnimas Surgical Hospital Vascular SurgeryStart: 06-05-2019 End: 41-43-0579Fsmgsve encounter procedureEHAB A ELTAHAWYFacility:[facility] Procedures DateProcedureProcedure DetailPerforming ClinicianStart: 76-03-1063ZH Heart TransthoracicAurora Staci Start: 02-44-1124Ucscb brachial pressure indexKeaton Rico MD Work Phone: Start: 45-43-3668Brtfq brachial pressure indexMD Keaton Rico Work Phone: Start: 78-05-9813Vywdr chest X-rayMD Keaton Rico Work Phone: Start: 18-47-9546WmhgiivqrukVG Keaton Rico Work Phone: Start: 47-53-7610UhoquiihqltDH Keaton Rico Work Phone: Start: 74-34-9569KporeojmykmKS Marcia Braun Work Phone: Start: 76-62-3467Rubdrmtj screenPittsburgcarlos [facility]aritan Medical Centeromment on above:Result Comment: PERFORMED BY: [facility] [place] [address] PATHOLOGIST HOT HEAD MACHINE OPERATOR JOLIE MASON M.D.Start: 00-00-6124YF Angiogram w/TLA/Stent Right Leg (Right)MD Keaton Rico Work Phone: Start: 04-13-6569Dhgpv brachial pressure indexMD Keaton Rico Work Phone: Start: 30-31-6814Jlpcto scan of lower limb arteriesMD Keaton Rico Work Phone: Start: 31-07-2133Zqakc limb angiographyMD Keaton Rico Work Phone: Start: 48-53-2133SJ of abdominal aorta with contrastMD Keaton Rico Work Phone: Start: 24-86-7679EUL screeningDR KEATON RICOComment on above:Performed By: #### PSASC #### [facility] [address] [place] [address] Dr. Kathy ChangStart: 92-32-3321JcsuwommmeNcxtitr CAGLE Start: 34-62-0709Jlqzululoa studiesPaWhereverTV CAGLE Herniated structure (morphologic abnormality)Maritza CAGLE Plan of Treatment DateCare ActivityDetailAuthorStart: 47-73-6679Tiwzutx referralBarney Children'S Medical Center Work Phone: Start: 71-30-4180RbmbfpdwxqfpBsglefeutMarymount Hospitaltart: 46-44-0556PbujcnnxvMarymount Hospitaltart: 29-96-3254Ljkhvkv endarterectomyOR Fem-Fem/Fem Endart/Patch Graft (Right) [facility] Hospitaltart: 44-48-9238Iyqdeenp admissionMarymount Hospitaltart: 95-95-3639UcxrxpktwKindred Hospital DaytonAnkle brachial pressure indexKindred Hospital DaytonAnkle brachial pressure indexKindred Hospital DaytonPatient EducationJ.W. [facility]tr Work Phone: Patient referralJ.W. Ruby [facility] Hospital [facility]tr Work Phone: Immunizations Immunization DateImmunizationNotesCare VyvwykohVlzwkjxb37-57-3920BGDQ-CwL-4 (COVID-19) mRNA BNT-162b2 vaxMaritza CAGLE [facility] HospitalComment on above:Result Comment: 2022-10-14: [id number]-65 Jayleen Perkins (Pfizer)MD Keaton Rico Work Phone: [facility]04-12-2021COVID-19 mRNA, Jayleen (Pfizer)MD Keaton Rico Work Phone: [facility]04-09-2021SARS-CoV-2 (COVID-19) Ad26 vaccine, recombinantPatrick CAGLE [facility]03-30-2021SARS-CoV-2 (COVID-19) mRNA BNT-162b2 vaxPatrick CAGLE [facility]03-12-2021SARS-CoV-2 (COVID-19) Ad26 vaccine, recombinantPatrick CAGLE [facility]03-08-2021SARS-CoV-2 (COVID-19) mRNA BNT-162b2 vaxPatrick CAGLE [facility]02-25-1998Hep A, unspecified formulationPatrick CAGLE [facility]02-25-1998hepatitis B vaccine, adult dosagePatrick CAGLE [facility]07-30-1997hepatitis B vaccine, adult dosagePatrick CAGLE [facility]06-24-1997Hep A, unspecified formulationPatrick CAGLE [facility]06-24-1997hepatitis B vaccine, adult dosagePatrick CAGLE [facility]06-24-1997Td(adult) unspecified formulationPatrick CAGLE [facility] DatePayer CategoryPayerPolicy ID01-01-2025Medicare [id number]-fgl [id number] [id number] 2.840.1.635110.3.579.[id number] 2.840.1.386252.3.579.2.72612-16-1651Uljdgax1105516 2.840.1.902287.3.579.2.10699-05-7665Siwjsgo3137869 2.840.1.433128.3.579.2.06790-68-8059Bbjlnxf1038402 2.840.1.096581.3.57[id number] 2.840.1.760619.3.57[id number] 2.840.1.084877.3.57[id number] 2.16840.1.865[id number] 2.16840.1.383915.3.579.2.531 Vetgjei39204179 2.16840.1.41[id number] 2.16840.1.9[id number] 2.16.840.1.172143.3.579.2.531 Social History DateTypeDetailFacilityStart: 12-21-2021 End: 15-70-3262Juvtlfs smoking statusHeavy tobacco smoker (finding)[facility] [employer] Other Start: 91-61-7151Ycq Assigned At [facility] [employer] Other Start: 05-18-2023 End: 15-63-1583Weehbyt smoking status NHISSmoker (finding)[facility] Hospitaltart: 25-83-2597Egb Assigned At [facility]ertart: 10-11-2023 End: 98-36-0200Dnbfpke smoking status NHISEx-smoker (finding)[facility] Hospitaltart: 97-35-4756NcqEtoaisn sex unknown (finding)[facility] Hospitaltart: 68-95-7074MxpLkny (finding)[facility] Hospitalexual OrientationExecutive [facility] of [facility] Medical Equipment Procedure CodeEquipment CodeEquipment Original TextEquipment IdentifierDates Angiogram, lower extremity, leftMultiple peripheral artery stent, bare-metal [id number] FDAStart: 59-19-8516Kmdyfrixf, lower extremity, leftMultiple peripheral artery stent, bare-metal ([id number] FDAStart: 98-13-2917Aymkkwibb, for thrombolysis follow-upMultiple peripheral artery stent, bare-metal ([id number] FDAStart: 74-68-1004Ktyxefmwb, for thrombolysis follow-upMultiple peripheral artery stent, bare-metal ()[id number] FDAStart: 93-61-6802Kmcloyaz peripheral artery stent, bare-metal()[id number] FDAStart: 31-85-2052Dbegbprp peripheral artery stent, bare-metal ()[id number] FDAStart: 11-53-4669Rndlduyz peripheral artery stent, bare-metal()[id number] FDAStart: 05-21-2021 Goals DatePatient GoalDesired Activity/State Functional Status SzvnQhclppqwgjYcvhwkOachbmvg24-69-5766Euemeputqk statusPatient at Baseline [facility] Work Phone: 1(499) 477-35020834331-09-7446Fqrfpxfgqo StatusN/AExecutive [facility]rology of [facility] Xirlbrxn55-78-6388Hjxomchhvh StatusN/AFCommunity [facility] Hospital Mental Status QpzlVqfexwqkdwYxhygzYfxfpaje76-54-7105Zhbxqflhh functionCognitive Status Patient at BaselineJ.W. Ruby Memorial Hospital Work Phone: Clinical Notes 05-11-2021 to 04-04-2025 Note Date & OhiqTzzyOfwvrbon07-67-9937 Hospital Discharge instructions Patient Education 04/04/2025 16:13:00 [...] Follow these instructions at home: Medicines Take pinl-jeu-cmewcwo and prescription medicines only as told by [...] important. Where to find more information National [place] of Diabetes and Digestive and Kidney Diseases: [...] depends on the type of prostatitis. Take dydz-nrg-iqwkzqu and prescription medicines only as told by [...] provider. Document Revised: 06/02/2023 Document Reviewed: 06/02/2023 [employer] Patient Education 2023 [email or web address]. 04/04/2025 16:12:59 Benign Prostatic Hyperplasia Benign Prostatic [...] urethra. Follow these instructions at home: Take emmt-maq-mfzmgqp and prescription medicines only as told by [...] provider. Document Revised: 02/03/2022 Document Reviewed: 02/03/2022 [employer] Patient Education 2023 [email or web address]. Follow Up Care 04/03/2025 09:06:46 With:XAVI Small APRN, FRANKLIN Metcalf, URL Address: When: Unknown Comments:2 mos w/ PSA [facility] 09-04-2025 NotePatient Education Infectious Disease Prostatitis Prostatitis [...] these instructions at home: Medicines ??? Take rbkk-kds-xpzhjdn and prescription medicines only as told by [...] provider. This is important. (more content not included)...[facility]08-25-2025 Evaluation note* Diagnosis Onset Date Resolution Status Admit Date COPD with acute bronchitis acuteAugust 2024 11:58amCOPD with acute bronchitisacuteOctober 2024 1:08pm [facility] Work Phone: 1(626) 945-708608-11-2025 NoteUT Cardiology - [facility] Subjective Pawan Bustillo is a [...] abnormal Benign prostatic hyperplasia with urinary obstruction Syghn-0-xbejvszufeu deficiency (CMS/HCC) Arthritis Claudication Feeling of incomplete bladder emptying Gastroesophageal reflux disease Internal derangement of left shoulder printed circuit layout taper current use of inhaled steroid Multiple pulmonary [...] external iliac artery stenting in [facility] in May 2021, coronary artery disease status [...] THE MORNING, Disp: 90 tablet, Rfl: 3 nzrahlinsqs-odssrhlll-qukqjbcy (Trelegy Ellipta) 100-62.5-25 mcg blister with device, Inhale 1 puff in the morning., Disp: , Rfl: lisinopril 10 mg tablet, Take 10 mg by mouth in the morning., Disp: , Rfl: metoprolol succinate XL (Toprol-XL) 25 mg 24 hr tablet, Take 1 tablet (25 mg) by mouth (more content not included)...[facility] 09-18-2024 NoteCardiology Clinic Note Pawan Bustillo is a 68 y.o. year old male patient with hypertension, hyperlipidemia, tobacco abuse, PAD s/p bilateral common and bilateral external iliac stents by Dr. Schroeder at [facility] in 05/2021, and CAD status [...] abnormal Benign prostatic hyperplasia with urinary obstruction Smtot-9-punkyeddloz deficiency (CMS/HCC) Arthritis Claudication (CMS/HCC) Feeling of incomplete bladder emptying Gastroesophageal reflux disease Internal derangement of left shoulder correction current use of inhaled steroid Multiple pulmonary [...] external iliac stents by Dr. 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 [address] [place] [address] Ultrasound Report Signed Patient: Pawan Bustillo MR#: [id number] : 1955 Acct:[id number] Age/Sex: 68 / M ADM Date: 5 Loc: [facility] ER Room: Type: [facility] Attending Dr: Tom Schroeder MD Ordering Provider: [...] Tom Schroeder M.D.09/04/2024 1:31 PM Dictation Location: [place] [address] Tech: Irma Jimenez Transcribed By: NOÉ 09/04/24 133 Dictated By: Tom Schroeder MD 09/04/24 133 Signed By: 09/04/24 133 [facility] Work Phone: 1(390) 686-425112-30-2024 Evaluation note* Diagnosis Onset Date Resolution Status Admit Date COPD with acute bronchitis acuteDecember 2023 2:35pmFormer smokeracuteFebruary 2024 12:56pm Peripheral arterial occlusive diseaseacuteFebruary 2024 12:56pm [facility] Work Phone: 1(220) 330-503702-17-2024 Consult note Author Juventino Kruse [facility] September 17, 2023 9:58amNote Date/TimeFebruary 2023 9:59am[place] [address] Pulmonology Consult Note Signed Patient: Pawan Bustillo MR#: [id number] : 1955 Acct:[id number] Age/Sex: 67 / M Adm Date: 4 Loc: Room: [address] [place] [address] Type: ADM IN Attending Dr: Tom Schroeder [...] negative unless noted below or in HPI [facility] Medical History (Updated 09/17/23 @ 09:57 by Juevntino Kruse MD) BPH (benign prostatic hyperplasia) Problem List clean-up per request of Phys. [facility] COPD (chronic obstructive pulmonary disease) Problem List clean-up per request of Phys. [facility] Myocardial infarct Problem List clean-up per request of Phys. [facility] Surgical History H/O repair of rotator cuff Problem List clean-up per request of Phys. [facility] History of ankle surgery RIGHT Problem List clean-up per request of Phys. EHR [facility] H/O hernia repair Problem List clean-up per request of Phys. EHR [facility] H/O heart artery stent Problem List clean-up per request of Phys. [facility] Family History (Updated 06/13/23 @ [...] signed by Juventino Kruse MD> 09/17/23 0958 [facility] Work Phone: 1(351) 874-893102-16-2024 Procedure noteKindred Hospital [facility]02-15-2024 Progress note Author Tom Schroeder [facility] September 15, 2023 3:56pmNote Date/TimeFebruary 2023 3:56pm[place] [address] Vascular Surgery Progress Note Signed Patient: Pawan Bustillo MR#: [id number] : 1955 Acct:[id number] Age/Sex: 67 / M Adm Date: 4 Loc: Room: [address] [place] [address] Type: ADM IN Attending Dr: Tom Schroeder [...] 65.7 64.5 Lymph % (Auto) 22.1 22.9 Clinch % (Auto) 7.3 8.6 Eos % (Auto) 4.1 3.7 Baso % (Auto) 0.8 0.3 Nucleat RBC Rel Count 0.2 0.1 Neut # (Auto) 4.0 3.9 Lymph # (Auto) 1.3 1.4 Clinch # (Auto) 0.4 0.5 Eos # (Auto) [...] 79.7 85.7 Lymph % (Auto) 12.0 7.7 Clinch % (Auto) 7.2 5.8 Eos % (Auto) 0.9 0.4 Baso % (Auto) 0.2 0.4 Nucleat RBC Rel Count 0.1 0.1 Neut # (Auto) 6.0 7.3 Lymph # (Auto) 0.9 L 0.7 L Clinch # (Auto) 0.5 0.5 Eos # (Auto) [...] foot with an abnormal physical examination despite hoahaoism of his inflow. It is likely that [...] <Electronically signed by MD Tom Schroeder> 09/15/23 9184 [facility] Work Phone: 1(737) 604-894502-12-2024 Evaluation note* Encounter Date Diagnosis Assessment Notes [...] aware that he needs to discontinue smoking. [facility] Other 10-16-2023 Evaluation note* Encounter Date Diagnosis [...] in addition to his current medical regimen. [facility] Other 09-26-2023 Evaluation note* Encounter Date Diagnosis [...] in peripheral vascular disease (ICD-10 - I73.9) [facility] Other 05-25-2023 Evaluation note* Encounter Date Diagnosis [...] may not be necessary at this time. [facility] Other 04-11-2023 Evaluation note* Encounter Date Diagnosis Assessment Notes Treatment Notes Treatment Clinical Notes Oct, Bronchitis (ICD-10 - J40) Bronchitis: Care Instructions material was printed Pt is acutely sick with acute complicated bronchitis Recommend: Antibiotics: Azithromycin 50 mg po daily for 5 days Bronchodilator: Albuterol with prednisone taper expectorent: Mucinex\ Pawan agreed I could send note to [facility] Cardiology. Will check on his improvement on 11/12. [facility] Other 09-19-2022 Hospital Discharge instructions Patient Education [...] prostate. Follow these instructions at home: Take owuf-nzz-ynfqalj and prescription medicines only as told by [...] 07/15/2001 Document Revised: 09/30/2018 Document Reviewed: 04/07/2017 [employer] Patient Education 2020 [employer] Follow Up Care 01/19/2022 12:19:40 With:TSERING BARRY, Maritza Balderas, URL Address: [facility] [address] [place] [address]- [phone] When:10/17/2022 Comments:PVR [facility] [place] 06-21-2022 Hospital Discharge instructions Patient Education 01/19/2022 [...] [facility] [address] [place] [address] Business (1) When:04/21/2022 12:18:02 Comments:With a bladder scan PVR [facility]06-21-2022 Evaluation + Plan noteExtracted from: [...] Date:04/19/2022 09:30:00 AM Scheduled Provider:Maritza CAGLE MD [facility] Appointment Type:URO Office Visit [facility]10-11-2021 Evaluation note* Encounter Date Diagnosis [...] is completed May,urrent smoker (ICD-10 - F17.200) [facility] Other Evaluation + Plan note Future Appointments Appointment Date:10/18/2022 10:45:00 AM Scheduled Provider:Maritza CAGLE MD Location:[facility] Appointment Type:URO Office Visit Diagnostic Tests Pending * PSA Total 04/19/22 [facility] evaluation + Plan note Future Appointments Appointment Date:06/06/2025 08:00:00 AM Scheduled Provider:XAVI Small APRN, [place] X Location:[facility] Appointment Type:URO Office Visit Diagnostic Tests Pending * PSA Screen, Total 04/04/25 [facility] evalugmejj noteNo InformationNort [employer] Other Evaluation noteNo assessment information available [facility] [employer] Work Phone: Evaluation note* Diagnosis Onset Date Resolution Status Peripheral arterial occlusive disease acutePostoperative acute respiratory failureacute [facility] [employer] Work Phone: Evaluation note* Diagnosis Onset Date Resolution Status Bronchitis acuteCOPD exacerbationacutePeripheral arterial occlusive diseaseacute [facility] [employer] Work Phone: History general Narrative - Reported* Type Description Date Medical History PVOD w/claudication Medical HistoryhypercholesterolemiaMedical HistoryCADMedical HistoryMISurgical Historyhernia repairSurgical Historyheart stentSurgical Historyankle surgery [facility] Other History general Narrative - Reported* Type Description Date Medical History PVOD w/claudication Medical HistoryhypercholesterolemiaMedical HistoryCADMedical HistoryMISurgical Historyhernia repairSurgical Historyheart stentSurgical Historyankle surgery Hospitalization HistorySEE SURGICAL [facility] Other History general Narrative - Reported* Type Description Date Medical History PVOD w/claudication Medical HistoryhypercholesterolemiaMedical HistoryCADMedical HistoryMISurgical Historyhernia repairSurgical Historyheart stentSurgical Historyankle surgery Surgical HistoryLeft shoulder surgery11/2022Hospitalization HistorySEE SURGICAL [facility] Other History general Narrative - Reported* Type Description Date Medical History PVOD w/claudication Medical HistoryhypercholesterolemiaMedical HistoryCADMedical HistoryMIMedical History[ ]Surgical Historyhernia repairSurgical Historyheart stentSurgical Historyankle surgerySurgical HistoryLeft shoulder surgery11/2022Surgical History[ ]Hospitalization HistorySEE SURGICAL [facility] Other Hisgjox general Narrative - Reported* Type Description Date Medical History PVOD w/claudication Medical HistoryhypercholesterolemiaMedical HistoryCADMedical HistoryMIMedical HistoryPADMedical History[ ]Surgical Historyhernia repairSurgical Historyheart stentSurgical Historyankle surgerySurgical HistoryLeft shoulder surgery11/2022 Surgical HistoryLEG ZFRFIS68/2023Hospitalization HistorySEE SURGICAL [facility] Other Hospital course Narrative No data available for this section [facility] Dis[facility] instructions No data available for this section [facility] Hospital Discharge instructionsAmbulatory Orders* Referral to Pulmonology Time Frame: 05/14/25, Location: None [facility] Work Phone: Progress note No data available for this section [facility] CenterReason for referral (narrative)No reason for referral information availableBarney Children'S Medical Center Work Phone: Summary Purpose Family History Relationship [...] and content) DATE CREATED AUTHOR 06/09/2019 [facility] DATE CREATED AUTHOR AUTHOR'S ORGANIZ ATION 11/06/2022 [facility] DATE CREATED AUTHOR AUTHOR'S ORGANIZ ATION 09/06/2024 [facility] DATE CREATED AUTHOR AUTHOR'S ORGANIZ ATION 04/03/2025 [facility] DATE CREATED AUTHOR AUTHOR'S ORGANIZ ATION 04/07/2025 [facility] Care Team (unrecognized sect ion and content) [...] Member Role Status Dates Kailyn Muro APRN FISH SALTER-C Attending Provider Act esmer Start: October 20, [...] 2025 End: March 25, 2025Tosha Jeff APRN FISH SALTER-CAttending Provider ActiveStart: March 25, 2025 End: March [...] painGO OVER CT RESULTS FROM 05/02 AT [facility], Follow-up CT angiogramPain in legs, previous angiogramrefillCOUGHING, [...] BE BASED ON THE PRIMARY CLINICAL RECORDS. [facility] CenterRegener[facility] Solutions [facility]. provides no warranty or guarantee of the accuracy or completeness of information in this document.
[2025-05-24 13:55] LABS: Prostate Specific Antigen Dx 2.17 ng/mL (<=4.00)
== END 2025-05-24 12:06 | disposition home or self-care (01) ==
PROVIDERS: PCP Family Medicine; Visit Provider Nurse Practitioner Family
DX: N40.1 Benign prostatic hyperplasia with lower urinary tract symptoms (principal); I27.20 Pulmonary hypertension, unspecified; R06.02 Shortness of breath
CPT/HCPCS: 36415; 80048; 83880; 84153; 85025

== ENCOUNTER 2025-06-14 10:55 | Outpatient (OUT) | payer MEDICARE, SELFPAY ==
--- OUTSIDE RECORDS SUMMARY | 2025-06-14 10:57 | XMS_ITS | Clinical Summary ---
Author Organization [facility] Address [address] [place] [address] Care Team Providers Care Commercial Truck Driver Name Role Phone Nakia Rascon MD Primary Care Provider [phone] Medications MedicationSigDispense QuantityRefillsLast FilledStart DateEnd DateStatus varenicline (Chantix) 0.5 MG tablet ChantixActive Fyfevbjbvwv-Lyprtcctd-Kwtvfk (Trelegy Ellipta) 100-62.5-25 MCG/INH aerosol powder 1 [...] chest pain. Active Active Problems ProblemNoted DateDiagnosed TfvgIxkbsltezsli25/08/2023Internal derangement of left /08/2023 Family History Medical HistoryRelationNameCommentsDiabetesFatherHeart diseaseFatherHeart diseaseMotherRelationNameStatusCommentsFatherDeceasedMotherDeceased Social History Tobacco UseTypesPacks/DayYears UsedDateSmoking Tobacco: Every DayCigarettes Tobacco Cessation:Ready to Q uit: Not Asked; Counseling Given: Not Answered Comments:Smokes 6-10 cigarettes/day Alcohol UseStandard Drinks/WeekCommentsYes0 (1 standard drink = 0.6 oz pure alcohol)Sex and Gender InformationValueDate RecordedSex Assigned at BirthNot on fileLegal RomQluz6510/13/2022 6:49 PM EDTGender IdentityNot on fileSexual OrientationNot on file Last Filed Vital Signs Vital SignReadingTime TakenCommentsBlood Pressure--Pulse--Temperature-- Respiratory Rate--Oxygen Saturation--Inhaled Oxygen Concentration--Jrbore51.9 kg (185 lb)11/18/2022 12:00 PM BUKTjtsvx849.3 cm (5' 11 )11/18/2022 12:00 PM EDT Body Mass Index25.8011/18/2022 12:00 PM EDT Plan of Treatment Not on file Insurance Care Teams Team MemberRelationshipSpecialtyStart DateEnd Date Nakia Rascon MD PCP - GeneralFamily Medicine12/30/22
--- OUTSIDE RECORDS SUMMARY | 2025-06-14 10:57 | XMS_ITS | Clinical Summary ---
Author Organization [facility] Address [address] [place] [address] Care Team Providers Care Manager In Training Name Role Phone Nakia Rascon MD Primary Care Provider [phone] Allergies No known active allergies Medications MedicationSigDispense [...] puffs every 4 (four) hours if needed.04/01/2022ctive lagmwjqylkc-eytjvmfff-trmadgkl (Trelegy Ellipta) 100-62.5-25 mcg blister with device Inhale 1 puff in the morning.04/20/2021ctive nicotine (Nicoderm CQ) 7 mg/24 hr patch Indications:Tobacco dependencyPlace 1 patch on the skin 1 (one) time each day at the same time. 30 patch 12/07/2022ctive Additional Information Patient not taking.Reported on 03/11/2025 Xarelto 2.5 mg tablet Take 2.5 mg by mouth in the morning and at bedtime.Active ezetimibe (Zetia) 10 mg tablet Indications:Mixed hyperlipidemiaTAKE 1 TABLET BY MOUTH EVERY DAY IN THE MORNING 90 tablet 5Active valACYclovir (Valtrex) 500 mg tablet Take 500 mg by mouth two times daily.5Active prednisoLONE acetate (Pred-Forte) 1 % ophthalmic suspension 1 drop four times daily.Active furosemide (Lasix) 20 mg tablet Indications:Pulmonary hypertension (CMS/HCC)Take 1 tablet (20 mg) by mouth in the morning. 90 tablet 6Active metoprolol succinate XL (Toprol-XL) 25 mg 24 hr tablet Indications:Coronary artery disease involving [place] coronary artery of [place] heart without angina pectoris,PAD (peripheral artery disease)TAKE 1 TABLET (25 MG) BY MOUTH ONCE DAILY DIRECTED. DO NOT CRUSH OR CHEW. 90 tablet 5Active metoprolol succinate XL (Toprol-XL) 25 mg 24 hr tablet Indications:Coronary artery disease involving [place] coronary artery of [place] heart without angina pectoris,PAD (peripheral artery disease)Take 1 tablet (25 mg) by mouth once daily as directed. Do not crush or chew. 90 tablet Discontinued Active Problems ProblemNoted DateDiagnosed DateFormer moyaau8903/09/2024eripheral arterial occlusive tnstjex2303/09/2024ostoperative acute respiratory orvcniy6703/09/2024 Vbtvv-1-aavjelqsfrz hesuawnktz47rthritis Feeling of incomplete bladder ovwmnwgc28Gastroesophageal reflux qwdrqxy12Long term current use of inhaled steroid Multiple pulmonary jqgiqeo07laudication Internal derangement of left Urinary dairgxe1109/27/2022Tobacco dependence rezvaznw18/27/2023hronic obstructive pulmonary hbryskq4009/27/20221491Rsymmrutlja07/27/2023oor urinary stream 09/27/2022Myocardial ppdpvczufq74/27/2023Increased frequency of urination 09/27/2022Incomplete emptying of mgezfek2809/27/2022Hypertensive disorder 09/27/20228181Vifskufkfnrywr33/27/1247Zekkvgzt65/27/0518Rkcmfzj72/27/2023yspnea on fcnzpqho22/27/2023urrent xopvgd6109/27/2022 Overview (09/27/2022): Added secondary to documentation in Social History. Coronary cdiqvsycswdbofwv41/27/2023ardiovascular stress test ythcgjdx25/27/2023 Benign prostatic hyperplasia with urinary rhkivesmsqa00/27/2023 Encounters DateTypeDepartmentCare ZmqvWsdlkasjhsx06/30/2025Refill [address] [place] [address] Adiel Moran MD Coronary artery disease involving [place] coronary artery of [place] heart without angina pectoris; PAD (peripheral artery disease)05/24/2025Telephone [address] [place] [address] LashaKyleigh MA 05/24/2025Orders Only [address] [place] [address] LashaKyleigh salvador MA Shortness of breath (Primary Dx)04/02/2025Telephone [address] [place] [address] Kyleigh Colby MA 03/21/2025Orders Only [address] [place] [address] Provider, MD Jenna from Last 3 Months Family History Medical HistoryRelationNameCommentsCoronary [...] and Gender Information ValueDate RecordedSex Assigned at EenprWvdk50/17/2023 8:56 AM EDTLegal SexMale 01/27/2022 9:50 PM EDTGender NrqxteavNudx78/17/2023 8:56 AM EDTSexual OrientationHeterosexual or Adccdigq64/17/2023 8:56 AM EDT Last Filed Vital Signs Vital SignReadingTime TakenCommentsBlood Qttnyxys790/7903/11/2025 10:09 AM EDT Fijav354003/11/2025 10:09 AM EDTTemperature--Respiratory Lkub434211/15/2022 12:29 PM EDTOxygen Rybrljumzn12%03/11/2025 10:09 AM EDTInhaled Oxygen Concentration-- Rhwfxr25.3 kg (199 lb)03/11/2025 10:09 AM OMESpffth709.9 cm (6')03/11/2025 10:09 AM EDTBody Mass Index26.9903/11/2025 10:09 AM EDT Plan of Treatment DateTypeDepartmentCare Team (Latest Contact Info)Uuouppfgrkj82/21/2025 9:00 AM ESTOffice Visit [facility] [address] [place] [address] Juan Cardona MD [address] [facility] [place] [address] Health MaintenanceDue DateLast DoneCommentsCT Ruzdxtrwjlxj14/28/1956olonoscopy 1955olorectal Cancer Tivsxsewx89/28/1956FIT-DNA1955FIT1955 FOBT1955Medicare Annual Wellness (AWV)1955 6420Rlyeumcvtzxpv89/28/1956 Depression Xewdpvmev80/28/1968Pneumococcal Vaccine: 50+ Years (1 of 2 - PCV) 11/26/1974Zoster Vaccines (1 of 2)11/26/2005dult Rvkraue42/24/ Fall Risk Zoncipacy01/28/2021OVID-19 Vaccine ( season)2025 06/09/2021, 12/01/2020, 11/10/2020, Additional [...] LAccount TypeRelation to PatientDate of BirthPhone Billing AddressPersonal/DjtetvWsjb38[birth year][address] [address] Care Teams Team MemberRelationshipSpecialtyStart DateEnd Date Nakia Rascon MD [address] [facility]09/27/22
--- OUTSIDE RECORDS SUMMARY | 2025-06-14 10:57 | XMS_ITS | Clinical Summary ---
Author Organization [facility] tem Address [id number] [place] [address] Care Team Providers Care Adobe Layer Name Role Phone Nakia Rascon MD Primary Care Provider [phone] Allergies No known active allergies Medications MedicationSigDispense QuantityRefillsLast FilledStart DateEnd DateStatus mbupfukhwzv-njxphnvrr-kknuzqzy (TRELEGY ELLIPTA) 100-62.5-25 mcg blister with device [...] RecordedSex Assigned at BirthNot on file Legal RveBipg2509/28/2022 9:32 AM ESTGender IdentityNot on fileSexual Orientation Not on file Last Filed Vital Signs Vital SignReadingTime TakenCommentsBlood Gzzrzqwb897/9303 1:21 PM EDT Sxcae371810/11/2022 1:21 PM EDTTemperature--Respiratory Rate--Oxygen Saturation-- Inhaled Oxygen Concentration--Jtupmx93.9 kg (185 lb)10/11/2022 1:21 PM EDTHeight 177.8 cm (5' 10 )10/11/2022 1:21 PM EDTBody Mass Index26.54010/11/2022 1:21 PM EDT Plan of Treatment Health MaintenanceDue DateLast DoneCommentsDepression Sgaaznjeg73/28/1968Tobacco Fugwzwjho82/28/1968DTaP,Tdap and Td Vaccines (1 - Tdap) Zoster (Shingles) Vaccine (1 of 2)11/26/2005Fall Risk Cixnfuwgz55/28/2021dult BMI Avgixrexf57OVID-19 Vaccine ( season)2025 06/09/2021, 11/07/2020, 10/28/2020, Additional history existsInfluenza Vaccine 04/01/2025RSV ( or age 60+ yrs) (1 - 1-dose 75+ series)11/26/2030 Medical Devices Not on file Insurance Care Teams Team MemberRelationshipSpecialtyStart DateEnd Date Nakia Rascon MD [address] [place] [address] PCP - GeneralFawaly Medicine10/06/22
== END 2025-06-14 10:56 | disposition home or self-care (01) ==
LOC: CARD 10:55
PROVIDERS: PCP Family Medicine; Visit Provider Family Medicine
DX: J44.0 Chronic obstructive pulmonary disease with (acute) lower respiratory infection (principal); J20.9 Acute bronchitis, unspecified
CPT/HCPCS: 94618